=== PATIENT | female | born 1965 | race Hispanic/Latino ===

== ENCOUNTER 2017-09-23 12:39 | Outpatient (CLI) | payer OTHER ==
--- NOTE | 2017-09-23 14:31 | XRay Report ---
CHEST TWO VIEWS: 09/23/17 12:39:00 CLINICAL: Hypertension. COMPARISON: None FINDINGS: Normal heart and pulmonary vasculature. The lungs are normally expanded and clear.Mild degenerative change in the spine. IMPRESSION: No acute cardiopulmonary process.
== END 2017-09-23 12:40 | disposition home or self-care (01) ==
LOC: PF 12:39
PROVIDERS: ATTEND Internal Medicine
DX: J44.9 Chronic obstructive pulmonary disease, unspecified (principal); I10 Essential (primary) hypertension; E78.00 Pure hypercholesterolemia, unspecified; I63.9 Cerebral infarction, unspecified; D64.9 Anemia, unspecified; M47.894 Other spondylosis, thoracic region; F17.210 Nicotine dependence, cigarettes, uncomplicated
CPT/HCPCS: 71046; 94010

== ENCOUNTER 2021-09-01 06:42 | Day surgery (SDC) | payer MEDICARE, OTHER ==
[2021-09-01 07:56] LABS: Basophils % (Auto) 0.3 % (0.0-1.8); Eosinophils # (Auto) 0.2 K/mm3 (0.0-0.4); Eosinophils % (Auto) 4.1 % (0.0-4.3); Hematocrit 40.4 % (30.3-42.9); Hemoglobin 13.7 gm/dl (10.1-14.3); Lymphocytes % (Auto) 36.4 % (13.4-35.0); Mean Corpuscular HGB Conc 34 % (30-34); Mean Corpuscular Volume 95 fl (79-97); Monocytes # (Auto) 0.5 K/mm3 (0.0-0.8); Monocytes % (Auto) 8.5 % (0.0-7.3); Platelet Count 252 K/mm3 (140-440); Red Blood Count 4.25 M/mm3 (3.65-5.03); Red Cell Distribution Width 14.4 % (13.2-15.2)
[2021-09-01] MEDS ORDERED: SODIUM CHLORIDE 0.9% 500 ML 500 ML IV SCH (08:00)
[2021-09-01 08:07] LABS: INR 1.01 (0.87-1.13); Partial Thromboplastin Time 33.2 Sec. (24.2-36.6)
[2021-09-01 08:30] LABS: BUN/Creatinine Ratio 11; Blood Urea Nitrogen 9 mg/dL (7-17); Calcium 9.4 mg/dL (8.4-10.2); Hemolysis Index 12
[2021-09-01] MEDS ORDERED: HEPARIN 10,000 UNITS/10 ML VIAL ONE (08:59)
[2021-09-01] MEDS ORDERED: HEPARIN/NS 5000 UNIT/500ML 1,000 ML IR ONE (08:59)
[2021-09-01] MEDS ORDERED: fentaNYL 100 MCG/2 ML INJ ONE ×2 (09:00→11:01)
[2021-09-01] MEDS ORDERED: LIDOCAINE (2%) 20 MG/1 ML VIAL 50 ML MDV INFILTRATI ONE (09:00)
[2021-09-01] MEDS ORDERED: ceFAZolin/Water 2 GM/20 ML 2 GM/20 ML SYRINGE IV ONE (09:01)
--- NOTE | 2021-09-01 09:01 | Short Stay Summary ---
Short Stay Documentation Date of service: 09/01/21 Narrative H&P: The patient is a 56-year-old female with a history of peripheral vascular disease and short distance claudication who was found at an outside facility to have occlusive disease involving her right femoral artery. She was sent to be evaluated, emergently, in our office and was found to have bilateral occlusive disease in the SFA and popliteal arteries. Additionally she was found to have monophasic flow in the right common femoral artery suggesting aortoiliac disease. She complains of claudication at short distances that has been present for years. She also admits to having a stroke that affected her right side approximately 5 years ago. She continues to have severe weakness of the right leg which limits her daily activities. She is in need of a diagnostic angiogram and possible intervention. She was given the risk, benefits, and alternative procedures. She expressed understanding and agrees to proceed. - History Past Medical History: hypertension, hyperlipidemia, stroke, other (Peripheral neuropathy) Past Surgical History: No surgical history Social history: smoking - Allergies and Medications Current Medications: Allergies No Known Allergies Allergy (Unverified 09/23/17 12:40) Home Medications Medication Instructions Recorded Confirmed Last Taken Type AtorvaSTATin [Lipitor] 40 mg PO DAILY 09/01/21 09/01/21 08/31/21 History 1 tab Gabapentin [Neurontin] 100 mg PO Q8HR 09/01/21 09/01/21 08/31/21 History 2 tabs HYDROcodone/ACETAMINOPHEN 1 each PO Q6HR 09/01/21 09/01/21 08/31/21 History [Hydrocodone-Acetamin 7.5-300] 1 tab amLODIPine [Norvasc] 5 mg PO DAILY 09/01/21 09/01/21 08/31/21 History 1 tab carvediloL [Coreg] 25 mg PO BID 09/01/21 09/01/21 08/31/21 History 2 tabs cilostazoL [Pletal] 100 mg PO BID 09/01/21 09/01/21 08/31/21 History 2 tabs traZODone [Desyrel] 100 mg PO QHS 09/01/21 09/01/21 08/31/21 History 1 tab Active Medications Sodium Chloride (Nacl 0.9% 500 Ml) 500 mls @ 50 mls/hr IV DIRECT SRAVAN - Physical exam General appearance: no acute distress Lungs: Normal air movement Breasts: deferred Heart: Regular rate Gastrointestinal: normal Female Genitourinary: deferred Rectal Exam: deferred Extremities: normal temperature, abnormal (Nonpalpable pedal pulses bilaterally, palpable left femoral pulse with diminished right femoral pulse) - Brief post op/procedure progress note Date of procedure: 09/01/21 Pre-op diagnosis: Peripheral Vascular Disease with Bilateral Lower Extremity Claudication Post-op diagnosis: same Procedure: 1. Ultrasound-Guided Access Left Common Femoral Artery 2. Diagnostic Aortogram (No Previous Films for Comparison) 3. Diagnostic Right Lower Extremity Angiogram (No Previous Films for Com parison) 4. Atherectomy with Angioplasty Right SFA and Popliteal Artery with 2.4/3.4 JetAnametrix Atherectomy Catheter and 5.0 x 200 [place] Drug-Coated Balloons (x2) 5. Angioplasty of Right Common Femoral Artery with 6.0 x 150 [place] Drug-Coated Balloon 6. Angioplasty and Stent of Right External Iliac Artery with 7.0 x 150 [place] Drug-Coated Balloon And 5 x 7 cm Viabahn Stent Graft 7. Closure of Left Femoral Arteriotomy with Perclose Pro [place] Closure Device 8. Radiologic Supervision with Interpretation 9. Monitored Moderate Sedation (Total Anesthesia Time: 80 Minutes) Anesthesia: local, other (Monitored Moderate Sedation) Surgeon: RHINA MURRAY Estimated blood loss: minimal Pathology: none Condition: stable - Disposition Condition at discharge: Good Disposition: 01 HOME / SELF CARE / HOMELESS Short Stay Discharge Plan Activity: other (No strenuous activity for 24 hours.) Wound: remove dressing (Okay to remove the dressing in 48 hours. After removing dressing okay to shower and wash the wound with soap and water but do not soak in water for 2 weeks.) Follow up with: RHINA MURRAY MD [Staff Physician] - 14 Days Prescriptions: Apixaban [Eliquis] 2.5 mg PO Q12HR #60 tab Clopidogrel [Plavix] 75 mg PO QDAY #90 tablet Pantoprazole [Protonix] 40 mg PO QDAY #90 tablet
[2021-09-01] MEDS: MIDAZOLAM 2 MG/2 ML INJ ONE ×5 (09:44→10:44)
[2021-09-01] MEDS: fentaNYL 100 MCG/2 ML INJ ONE ×3 (10:10→10:44)
[2021-09-01] MEDS ORDERED: SODIUM CHLORIDE 0.9% 1000 ML 1,000 ML ONE (10:18)
[2021-09-01] MEDS ORDERED: hydrALAZINE 20 MG/1 ML INJ ONE (10:42)
[2021-09-01] MEDS ORDERED: MIDAZOLAM 2 MG/2 ML INJ ONE (11:01)
[2021-09-01] MEDS ORDERED: HYDROcodone/ACETAMINOPHEN 5-325 MG TAB PO PRN (11:22)
[2021-09-01] MEDS ORDERED: CLOPIDOGREL 300 MG TAB PO ONE (11:24)
[2021-09-01] MEDS ORDERED: APIXABAN 2.5 MG TAB PO ONE (11:30)
--- NOTE | 2021-09-01 11:41 | Operative Report ---
Operative Report Operative Report: Date of Procedure: 09/01/2021 Pre-operative Diagnosis: Peripheral Vascular Disease with Bilateral Lower Extrem ity Claudication Post-operative Diagnosis: Same Procedure(s): 1. Ultrasound-Guided Access Left Common Femoral Artery 2. Diagnostic Aortogram (No Previous Films for Comparison) 3. Diagnostic Right Lower Extremity Angiogram (No Previous Films for Comparison) 4. Atherectomy with Angioplasty Right SFA and Popliteal Artery with 2.4/3.4 Jetstream Atherectomy Catheter and 5.0 x 200 [place] Drug-Coated Balloons (x2) 5. Angioplasty of Right Common Femoral Artery with 6.0 x 150 [place] Drug-Coated Balloon 6. Angioplasty and Stent of Right External Iliac Artery with 7.0 x 150 [place] Drug-Coated Balloon And 7 x 5 cm Viabahn Stent Graft 7. Closure of Left Femoral Arteriotomy with Perclose ProGlide Closure Device 8. Radiologic Supervision with Interpretation 9. Monitored Moderate Sedation (Total Anesthesia Time: 80 Minutes) Surgeon: Lauri Edge M.D. Restaurant Manager: Amanda Anesthesia: Local/Monitored Moderate Sedation Total Anesthesia Time: 80 Minutes EBL: Minimal Counts: Correct Complications: None Condition: Stable Specimen: None Indication: The patient is a 56-year-old female with a history of peripheral vascular disease and short distance claudication who was found to have bilateral SFA and popliteal artery occlusive disease on arterial duplex. On physical exam she had a nonpalpable right femoral pulse suggesting she had aortoiliac occlusive disease as well. She is in need of a diagnostic aortogram with right lower extremity runoff, to evaluate her arterial flow, with possible intervention. She was given the risk, benefits, and alternative procedures and consented to the procedure. Angiographic Findings: The diagnostic aortogram revealed that the aorta was patent without aneurysmal dilatation or flow-limiting stenosis. The right lower extremity angiogram revealed approximately 50% stenosis of the right common iliac artery. The hypogastric artery was patent without significant flow-limiting stenosis. There was approximately 90% stenosis of the distal right external iliac artery. There was approximately 50% stenosis of the common femoral artery. The profunda artery was patent without significant flow- limiting stenosis. There was an occlusion of the SFA at its origin with reconstitution of flow in the proximal popliteal artery. There was approximately 75% stenosis in the mid popliteal artery and the remainder of the artery appeared to be patent without significant flow-limiting stenosis. The patient had three-vessel runoff and all vessels appear patent without significant flow-limiting stenosis. After intervention the common iliac artery was patent with approximately 20% residual stenosis. The external iliac artery was patent with less than 15% residual stenosis. There was less than 15% residual stenosis within the common femoral artery. The SFA was patent with less than 20% residual stenosis. There was a short segment with a dissection that was nonflow limiting. The popliteal artery was patent with approximately 20% residual stenosis in a short segment behind the knee that also had a small dissection however the this was nonflow limiting. Description of Procedure: The patient was brought to the Healthcare Consultant and laid in supine position. After timeout was performed her left groin was prepped and draped in normal sterile fashion. Ultrasound was used to identify the left common femoral artery and confirm patency. Once patency was confirmed the overlying skin and soft tissue was anesthetized with lidocaine. An 11 blade was used to make a small stab incision and then a curved hemostat was used to bluntly dissect down to the anterior surface of the left common femoral artery under ultrasound guidance. A 21-gauge micropuncture needle was then used with ultrasound guidance into the left common femoral artery. A 0.018 micropuncture wire was advanced to the artery and after removing the needle a micropuncture sheath was placed by Seldinger technique. The dilator and wire were removed and a 0.035 Bentson wire was advanced into the aorta. The micropuncture sheath was then changed for 5 [place] sheath by Seldinger technique. An Omni Flush catheter was advanced into the infrarenal aorta and after removing the wire diagnostic aortogram was performed with the previously described findings. The Bentson wire was reinserted and the catheter and wire were advanced up and over the bifurcation and a right lower extremity angiogram was performed with the previously described findings. I advanced a Bentson wire into the common femoral artery and the remove the Omni Flush cath and a 5 [place] sheath and placed a 7 [place] 45 cm destination sheath P[place]i technique. At this point the patient was systemically heparinized with 5000 units of heparin IV. I then used a Navicross catheter and 0.018 Gladius Wire to traverse the occluded SFA and reenter the popliteal artery which was confirmed by angiogram. I then advanced the catheter wire to the posterior tibial artery and exchanged the Gladius wire for a 0.014 Thruway wire. I then performed atherectomy of the SFA and popliteal artery using a 2.4/3.4 jetBuccaneer atherectomy catheter. I then performed angioplasty of the popliteal artery and SFA using 5.0 x 200 [place] Drug-Coated Balloons (x2). I performed angioplasty of the common femoral artery using a 6.0 x 150 [place] Drug-Coated Balloon. This resulted in less than 15% residual stenosis within the common femoral artery. There was a small flow-limiting dissection within the mid SFA however the remainder of the artery had less than 20% residual stenosis. There was approximately 20% residual stenosis within the popliteal artery with a short nonflow limiting dissection behind the knee. I performed angioplasty of the area of dissection, within the SFA, using a 6 x 40 [place] Balloon which resulted in less than 20% residual stenosis. I then performed angioplasty of the common iliac artery and external iliac artery using a 7.0 x 150 [place] Drug-Coated Balloon. This resulted in approximately 20% residual stenosis within the common iliac artery and a flow-limiting dissection in the distal external iliac artery. I treated this flow-limiting dissection with a 7 x 5 cm Viabahn stent graft which resulted in less than 15% residual stenosis. At this point I remove the wire and pulled the sheath back into the left external leg artery. I advanced a Alma Johnsson wire into the aorta and remove the 7 [place] sheath. I then closed the left femoral arteriotomy using a Perclose ProGlide Closure Device. A sterile dressing was then applied to the left groin entry site and the patient was transported to the recovery area in stable condition.
[2021-09-01 16:14] VITALS: BP 116/63
== END 2021-09-01 06:43 | disposition home or self-care (01) ==
LOC: CATHLABREC 06:42
PROVIDERS: ATTEND Surgery Vascular Surgery
DX: I70.213 Atherosclerosis of native arteries of extremities with intermittent claudication, bilateral legs (principal); E78.00 Pure hypercholesterolemia, unspecified; I10 Essential (primary) hypertension; G47.30 Sleep apnea, unspecified; F17.210 Nicotine dependence, cigarettes, uncomplicated; Z98.890 Other specified postprocedural states; Z79.899 Other long term (current) drug therapy; Z86.73 Personal history of transient ischemic attack (TIA), and cerebral infarction without residual deficits
CPT/HCPCS: 36415; 37221; 37225; 75625; 75710; 76937; 80048; 85025; 85610; 85730; 99156; 99157; C1724; C1725; C1760; C1769; C1874; C1887; C2623; J0360; J0690; J1644; J2250; J3010; J3490; J7030; J7040; Q0162; Q9967

== ENCOUNTER 2021-11-30 15:34 | Inpatient (IN) | payer MEDICARE ==
[2021-11-30] MEDS ORDERED: cefTRIAXone/NS 1 GM/50 ML 1 GM/50 ML BAG IV ONE (15:49)
--- NOTE | 2021-11-30 16:05 | Emergency Department Report ---
HPI - General Chief Complaint: Fever Time Seen by Provider: 11/30/21 15:46 - HPI HPI: 56-year-old female presents to the emergency department via EMS from home with concern for sepsis with hypotension and generalized weakness. The patient was admitted here on 10/18 for a left common femoralpopliteal bypass secondary to critical limb ischemia. The next day the patient had a left lower extremity thrombectomy with revascularization. She was found to have compartment syndrome of the left lower extremity and had fasciotomy done. Later during her hospital admission the patient was found to have a cool right lower extremity and subsequently had endovascular revascularization of the right lower extremity with angioplasty. The patient was discharged on 11/06 and was [facility]. She remained there until about 3 days ago when she was discharged back to her home. She had some family and friends with her at the house who found her weak and altered and called for EMS. At the time of my initial examination she is awake, alert, oriented, AAO x3, but does appear weak and frail and has hypotension with a systolic of about 65. So far she has received 2 L of IV fluid through EMS both in route and while awaiting a bed in the emergency department. ED Past Medical Hx - Past Medical History Hx Hypertension: Yes Hx Heart Attack/AMI: No (Cardiac clearance; echo & nst) Hx Diabetes: No Hx Liver Disease: No Hx Arthritis: No Hx Kidney Stones: No Hx Tuberculosis: No Hx HIV: No - Social History Smoking Status: Current Every Day Smoker - Medications Home Medications: Home Medications Medication Instructions Recorded Confirmed Last Taken Type Apixaban [Eliquis] 2.5 mg PO Q12HR #60 tab 09/01/21 10/10/21 Unknown Rx AtorvaSTATin [Lipitor] 40 mg PO DAILY 09/01/21 10/10/21 08/31/21 History 1 tab Clopidogrel [Plavix] 75 mg PO QDAY #90 tablet 09/01/21 10/10/21 Unknown Rx Gabapentin 100 mg PO BID 09/01/21 10/10/21 08/31/21 History 2 tabs Pantoprazole [Protonix] 40 mg PO QDAY #90 tablet 09/01/21 10/10/21 Unknown Rx amLODIPine 5 mg PO DAILY 09/01/21 10/10/21 08/31/21 History 1 tab carvediloL [Coreg] 25 mg PO BID 09/01/21 10/10/21 08/31/21 History 2 tabs cilostazoL [Pletal] 50 mg PO BID 09/01/21 10/10/21 08/31/21 History 2 tabs traZODone [Desyrel] 100 mg PO QHS 09/01/21 10/10/21 08/31/21 History 1 tab Venlafaxine [Effexor] 75 mg PO DAILY 11/02/21 11/02/21 Unknown History ED Review of Systems ROS: Stated complaint: POSSIBLE SEPSIS, WEAKNESS, ALTERED MENTAL STATUS Other details as noted in HPI Comment: All other systems reviewed and negative Constitutional: chills, weakness Eyes: denies: eye pain, vision change ENT: denies: ear pain, throat pain Respiratory: denies: cough, shortness of breath Cardiovascular: denies: chest pain, palpitations Gastrointestinal: denies: abdominal pain, vomiting Genitourinary: denies: dysuria, discharge Musculoskeletal: denies: back pain, arthralgia Skin: denies: rash, lesions Neurological: weakness. denies: headache Physical Exam - Physical Exam Vital Signs: Vital Signs 11/30/21 15:38 Temperature 99.7 F H Pulse Rate 98 H Respiratory 20 Rate Blood Pressure 78/58 [Left] O2 Sat by Pulse 98 Oximetry Physical Exam: GENERAL: Patient is ill-appearing. HENT: Normocephalic. Atraumatic. Patient has moist mucous membranes. EYES: Extraocular motions are intact. NECK: Supple. Trachea is midline. CHEST/LUNGS: Clear to auscultation. There is no respiratory distress noted. HEART/CARDIOVASCULAR: Regular. There is no tachycardia. There is no murmur. ABDOMEN: Abdomen is soft, nontender. Patient has normal bowel sounds. There is no abdominal distention. SKIN: Skin is cool but dry. There is swelling to the left mid calf and tib-fib with bilateral incisions. These incisions do not appear to show any signs of dehiscence. Mild purulent drainage. No surrounding erythema. There is a wound VAC to the proximal left upper extremity, almost at the groin. NEURO: The patient is awake, alert, and oriented. The patient is cooperative. The patient has no focal neurologic deficits. Normal speech. MUSCULOSKELETAL: There is tenderness to palpation along the distal left lower extremity. ED Course Vital Signs 11/30/21 15:38 Temperature 99.7 F H Pulse Rate 98 H Respiratory 20 Rate Blood Pressure 78/58 [Left] O2 Sat by Pulse 98 Oximetry - Central Line Placement Right IJ Consent Obtained: verbal consent Time Out Performed: Yes Patient Placed on Monitor/Pulse Ox: Yes Prep: mask, gown, gloves Central Line Prep: Chlorhexidine scrub Local Anesthesia Used: Lidocaine 1% Amount of Anesthesia Used (mls): 3 Ultrasound Used for Placement: Yes Central Line Lumen Inserted: triple Reason for Insertion: Volume Resuscitation Bloods Obtained for Lab: No Central Line Position: good blood return, all ports aspirated, flus, sutured in place with nyl Dressing Applied: Tegaderm, sterile gauze/tape Post Procedure X-Ray: tip of catheter in good p Patient Tolerated Procedure: well Complications: none ED Medical Decision Making - Lab Data Result diagrams: 11/30/21 15:56 11/30/21 15:56 Lab Results 11/30/21 11/30/21 11/30/21 Range/Units 15:56 15:56 15:56 WBC 17.0 H (4.5-11.0) K/mm3 RBC 2.26 L (3.65-5.03) M/mm3 Hgb 6.2 L (10.1-14.3) gm/dl Hct 19.2 L* (30.3-42.9) % MCV 85 (79-97) fl MCH 27 L (28-32) pg MCHC 32 (30-34) % RDW 16.6 H (13.2-15.2) % Plt Count 286 (140-440) K/mm3 Add Manual Diff Complete Total Counted 100 Seg Neutrophils % Framework Developer Seg Neuts % (Manual) 71.0 H (40.0-70.0) % Band Neutrophils % 26.0 % Lymphocytes % (Manual) 1.0 L (13.4-35.0) % Reactive Lymphs % (Man) 0 % Monocytes % (Manual) 1.0 (0.0-7.3) % Eosinophils % (Manual) 0 (0.0-4.3) % Basophils % (Manual) 0 (0.0-1.8) % Metamyelocytes % 0 % Myelocytes % 1.0 % Promyelocytes % 0 % Blast Cells % 0 % Nucleated RBC % Not Reportable Seg Neutrophils # Man 12.1 H (1.8-7.7) K/mm3 Band Neutrophils # 4.4 K/mm3 Lymphocytes # (Manual) 0.2 L (1.2-5.4) K/mm3 Abs React Lymphs (Man) 0.0 K/mm3 Monocytes # (Manual) 0.2 (0.0-0.8) K/mm3 Eosinophils # (Manual) 0.0 (0.0-0.4) K/mm3 Basophils # (Manual) 0.0 (0.0-0.1) K/mm3 Metamyelocytes # 0.0 K/mm3 Myelocytes # 0.2 K/mm3 Promyelocytes # 0.0 K/mm3 Blast Cells # 0.0 K/mm3 WBC Morphology Not Reportable Hypersegmented Neuts Not Reportable Hyposegmented Neuts Not Reportable Hypogranular Neuts Not Reportable Smudge Cells Not Reportable Toxic Granulation Not Reportable Toxic Vacuolation Not Reportable Dohle Bodies Not Reportable Pelger-Huet Anomaly Not Reportable Mary Rods Not Reportable Platelet Estimate Consistent w auto Clumped Platelets Not Reportable Plt Clumps, EDTA Not Reportable Large Platelets Not Reportable Giant Platelets Not Reportable Platelet Satelliting Not Reportable Plt Morphology Comment Not Reportable RBC Morphology Not Reportable Dimorphic RBCs Not Reportable Polychromasia Not Reportable Hypochromasia Not Reportable Poikilocytosis Not Reportable Anisocytosis Not Reportable Microcytosis Not Reportable Macrocytosis Not Reportable Spherocytes Few Pappenheimer Bodies Not Reportable Sickle Cells Not Reportable Target Cells Not Reportable Tear Drop Cells Not Reportable Ovalocytes Not Reportable Helmet Cells Not Reportable [place] Bodies Not Reportable [place] Rings Not Reportable [place] Cells Not Reportable Bite Cells Not Reportable Crenated Cell Not Reportable Elliptocytes Not Reportable Acanthocytes (Spur) Not Reportable Rouleaux Not Reportable Hemoglobin C Crystals Not Reportable Schistocytes Not Reportable Malaria parasites Not Reportable Kvng Bodies Not Reportable Hem Pathologist Commnt F PT 23.9 H (12.2-14.9) Sec. INR 1.87 H (0.87-1.13) APTT 43.1 H (24.2-36.6) Sec. VBG pH (7.320-7.420) Sodium 131 L (137-145) mmol/L Potassium 3.6 (3.6-5.0) mmol/L Chloride 98.3 (98-107) mmol/L Carbon Dioxide 22 (22-30) mmol/L Anion Gap 14 mmol/L BUN 9 (7-17) mg/dL Creatinine 1.3 H (0.6-1.2) mg/dL Estimated GFR 42 ml/min BUN/Creatinine Ratio 7 % Glucose 104 H (65-100) mg/dL Lactic Acid (0.7-2.0) mmol/L Calcium 7.3 L (8.4-10.2) mg/dL Total Bilirubin 0.40 (0.1-1.2) mg/dL AST 16 (5-40) units/L ALT 7 (7-56) units/L Alkaline Phosphatase 80 (35-129) units/L Troponin T 0.119 H* (0.00-0.029) ng/mL Total Protein 4.2 L (6.3-8.2) g/dL Albumin 2.4 L (3.9-5) g/dL Albumin/Globulin Ratio 1.3 % Triglycerides 108 (2-149) mg/dL Cholesterol 82 (50-199) mg/dL LDL Cholesterol Direct 38 L (50-130) mg/dL HDL Cholesterol 28 L (40-59) mg/dL Cholesterol/HDL Ratio 2.92 % TSH (0.270-4.200) mlU/mL Blood Type Antibody Screen Crossmatch 11/30/21 11/30/21 11/30/21 Range/Units 15:56 15:57 15:57 WBC (4.5-11.0) K/mm3 RBC (3.65-5.03) M/mm3 Hgb (10.1-14.3) gm/dl Hct (30.3-42.9) % MCV (79-97) fl MCH (28-32) pg MCHC (30-34) % RDW (13.2-15.2) % Plt Count (140-440) K/mm3 Add Manual Diff Total Counted Seg Neutrophils % Seg Neuts % (Manual) (40.0-70.0) % Band Neutrophils % % Lymphocytes % (Manual) (13.4-35.0) % Reactive Lymphs % (Man) % Monocytes % (Manual) (0.0-7.3) % Eosinophils % (Manual) (0.0-4.3) % Basophils % (Manual) (0.0-1.8) % Metamyelocytes % % Myelocytes % % Promyelocytes % % Blast Cells % % Nucleated RBC % Seg Neutrophils # Man (1.8-7.7) K/mm3 Band Neutrophils # K/mm3 Lymphocytes # (Manual) (1.2-5.4) K/mm3 Abs React Lymphs (Man) K/mm3 Monocytes # (Manual) (0.0-0.8) K/mm3 Eosinophils # (Manual) (0.0-0.4) K/mm3 Basophils # (Manual) (0.0-0.1) K/mm3 Metamyelocytes # K/mm3 Myelocytes # K/mm3 Promyelocytes # K/mm3 Blast Cells # K/mm3 WBC Morphology Hypersegmented Neuts Hyposegmented Neuts Hypogranular Neuts Smudge Cells Toxic Granulation Toxic Vacuolation Dohle Bodies Pelger-Huet Anomaly Mary Rods Platelet Estimate Clumped Platelets Plt Clumps, EDTA Large Platelets Giant Platelets Platelet Satelliting Plt Morphology Comment RBC Morphology Dimorphic RBCs Polychromasia Hypochromasia Poikilocytosis Anisocytosis Microcytosis Macrocytosis Spherocytes Pappenheimer Bodies Sickle Cells Target Cells Tear Drop Cells Ovalocytes Helmet Cells [place]barra-[place] Bodies [place] Rings Syeda Cells Bite Cells Crenated Cell Elliptocytes Acanthocytes (Spur) Rouleaux Hemoglobin C Crystals Schistocytes Malaria parasites Kvng Bodies Hem Pathologist Commnt PT (12.2-14.9) Sec. INR (0.87-1.13) APTT (24.2-36.6) Sec. VBG pH 7.509 H (7.320-7.420) Sodium (137-145) mmol/L Potassium (3.6-5.0) mmol/L Chloride (98-107) mmol/L Carbon Dioxide (22-30) mmol/L Anion Gap mmol/L BUN (7-17) mg/dL Creatinine (0.6-1.2) mg/dL Estimated GFR ml/min BUN/Creatinine Ratio % Glucose (65-100) mg/dL Lactic Acid 1.70 (0.7-2.0) mmol/L Calcium (8.4-10.2) mg/dL Total Bilirubin (0.1-1.2) mg/dL AST (5-40) units/L ALT (7-56) units/L Alkaline Phosphatase (35-129) units/L Troponin T (0.00-0.029) ng/mL Total Protein (6.3-8.2) g/dL Albumin (3.9-5) g/dL Albumin/Globulin Ratio % Triglycerides (2-149) mg/dL Cholesterol (50-199) mg/dL LDL Cholesterol Direct (50-130) mg/dL HDL Cholesterol (40-59) mg/dL Cholesterol/HDL Ratio % TSH 1.870 (0.270-4.200) mlU/mL Blood Type Antibody Screen Crossmatch 11/30/21 11/30/21 Range/Units 17:23 17:23 WBC (4.5-11.0) K/mm3 RBC (3.65-5.03) M/mm3 Hgb (10.1-14.3) gm/dl Hct (30.3-42.9) % MCV (79-97) fl MCH (28-32) pg MCHC (30-34) % RDW (13.2-15.2) % Plt Count (140-440) K/mm3 Add Manual Diff Total Counted Seg Neutrophils % Seg Neuts % (Manual) (40.0-70.0) % Band Neutrophils % % Lymphocytes % (Manual) (13.4-35.0) % Reactive Lymphs % (Man) % Monocytes % (Manual) (0.0-7.3) % Eosinophils % (Manual) (0.0-4.3) % Basophils % (Manual) (0.0-1.8) % Metamyelocytes % % Myelocytes % % Promyelocytes % % Blast Cells % % Nucleated RBC % Seg Neutrophils # Man (1.8-7.7) K/mm3 Band Neutrophils # K/mm3 Lymphocytes # (Manual) (1.2-5.4) K/mm3 Abs React Lymphs (Man) K/mm3 Monocytes # (Manual) (0.0-0.8) K/mm3 Eosinophils # (Manual) (0.0-0.4) K/mm3 Basophils # (Manual) (0.0-0.1) K/mm3 Metamyelocytes # K/mm3 Myelocytes # K/mm3 Promyelocytes # K/mm3 Blast Cells # K/mm3 WBC Morphology Hypersegmented Neuts Hyposegmented Neuts Hypogranular Neuts Smudge Cells Toxic Granulation Toxic Vacuolation Dohle Bodies Pelger-Huet Anomaly Mary Rods Platelet Estimate Clumped Platelets Plt Clumps, EDTA Large Platelets Giant Platelets Platelet Satelliting Plt Morphology Comment RBC Morphology Dimorphic RBCs Polychromasia Hypochromasia Poikilocytosis Anisocytosis Microcytosis Macrocytosis Spherocytes Pappenheimer Bodies Sickle Cells Target Cells Tear Drop Cells Ovalocytes Helmet Cells [place]barra-[place] Bodies [place] Rings [place] Cells Bite Cells Crenated Cell Elliptocytes Acanthocytes (Spur) Rouleaux Hemoglobin C Crystals Schistocytes Malaria parasites Kvng Bodies Hem Pathologist Commnt PT (12.2-14.9) Sec. INR (0.87-1.13) APTT (24.2-36.6) Sec. VBG pH (7.320-7.420) Sodium (137-145) mmol/L Potassium (3.6-5.0) mmol/L Chloride (98-107) mmol/L Carbon Dioxide (22-30) mmol/L Anion Gap mmol/L BUN (7-17) mg/dL Creatinine (0.6-1.2) mg/dL Estimated GFR ml/min BUN/Creatinine Ratio % Glucose (65-100) mg/dL Lactic Acid 1.20 (0.7-2.0) mmol/L Calcium (8.4-10.2) mg/dL Total Bilirubin (0.1-1.2) mg/dL AST (5-40) units/L ALT (7-56) units/L Alkaline Phosphatase (35-129) units/L Troponin T (0.00-0.029) ng/mL Total Protein (6.3-8.2) g/dL Albumin (3.9-5) g/dL Albumin/Globulin Ratio % Triglycerides (2-149) mg/dL Cholesterol (50-199) mg/dL LDL Cholesterol Direct (50-130) mg/dL HDL Cholesterol (40-59) mg/dL Cholesterol/HDL Ratio % TSH (0.270-4.200) mlU/mL Blood Type O POSITIVE Antibody Screen Negative Crossmatch See Detail - EKG Data -: EKG Interpreted by Ri EKG shows normal: sinus rhythm, axis (Left axis deviation), intervals, QRS complexes, ST-T waves (T wave inversions to the anterolateral leads) Rate: normal - EKG Data When compared to previous EKG there are: changes noted (New T wave inversions to the anterolateral leads) Interpretation: other (Sinus rhythm at 86 bpm, left axis deviation, normal intervals, T wave inversions in the anterolateral leads. No ST elevation [place].) - Radiology Data Radiology results: image reviewed interpreted by me: Chest x-ray does not show any acute process. There are no pleural effusions, obvious pneumonia and there is no pneumothorax. Repeat chest x-ray shows right IJ central venous catheter tip in the superior vena cava. - Medical Decision Making This patient presents to the emergency department after she was found weak, hypotensive and lethargic, by family and friends. The patient does present with hypotension with a systolic blood pressure between 60 and 70, despite IV fluid in route and while waiting for a bed assignment. By the time of my initial examination the patient has already received 2 L of IV fluid, which is greater t moser the 30 cc/kg as part of the sepsis bundle. A code sepsis was initiated. Blood cultures were sent and the patient was started on empiric antibiotics. As she continues to have hypotension, a right IJ central venous catheter was placed and the patient was started on Levophed. Chest x-ray did not show any pneumonia, pleural effusions, pneumothorax, widened mediastinum, or any other acute process. Patient's labs also show anemia with a hemoglobin of 6.2, which may be part of the reason for the patient's hypotension and lethargy. 1 unit packed red blood cells has been ordered for transfusion. Labs also show a leukocytosis of 17,000, elevated troponin of 1.112, mild hyponatremia at 131. I spoke to the clearing hand on-call, Dr. Saúl Santana, who is excepted the patient to the ICU. The patient will be admitted by Dr. Jane. Critical Care Time: Yes Critical care time in (mins) excluding proc time.: 35 Critical care attestation.: If time is entered above; I have spent that time in minutes in the direct care o f this critically ill patient, excluding procedure time. Critical care time was spent on this patient in doing her initial evaluation, multiple reevaluations, ordering and interpretation of labs and imaging, IV fluid resuscitation, Levophed drip for continued hypotension, empiric antibiotics, discussion with the clearing hand and hospitalist services. Critical Care Time: 35 minutes ED Disposition Clinical Impression: Septic shock, Anemia requiring transfusions, NSTEMI (non-ST elevated myocardial infarction) Sepsis Qualifiers: Sepsis type: sepsis due to unspecified organism Sepsis acute organ dysfunction status: with acute organ dysfunction Severe sepsis acute organ dysfunction type: unspecified Severe sepsis shock status: with septic shock Qualified Code(s): A41.9 - Sepsis, unspecified organism; R65.21 - Severe sepsis with septic shock Hypotension Qualifiers: Hypotension type: unspecified hypotension type Qualified Code(s): I95.9 - Hypotension, unspecified Leukocytosis Qualifiers: Leukocytosis type: unspecified Qualified Code(s): D72.829 - Elevated white blood cell count, unspecified Disposition: 09 ADMITTED INPATIENT Is pt being admited?: Yes Condition: Critical Time of Disposition: 18:13
[2021-11-30] MEDS ORDERED: SODIUM CHLORIDE 0.9% 1000 ML 1,000 ML ONE (16:07)
[2021-11-30] MEDS ORDERED: SODIUM CHLORIDE 0.9% 1000 ML IV SOLN IV ONE (16:08)
--- NOTE | 2021-11-30 16:22 | XRay Report ---
CHEST 1 VIEW 11/30/2021 3:10 PM INDICATION / CLINICAL INFORMATION: Sepsis. COMPARISON: 10/25/2021 FINDINGS: SUPPORT DEVICES: None. HEART / MEDIASTINUM: No significant abnormality. LUNGS / PLEURA: No significant pulmonary or pleural abnormality. No pneumothorax. ADDITIONAL FINDINGS: No significant additional findings. IMPRESSION: 1. No acute findings. Signer Name: Houston Segovia MD Signed: 11/30/2021 4:17 PM Workstation Name: [id number]
[2021-11-30 16:30] LABS: Hemoglobin 6.2 gm/dl (10.1-14.3); Mean Corpuscular HGB Conc 32 % (30-34); Mean Corpuscular Volume 85 fl (79-97); Platelet Count 286 K/mm3 (140-440); Red Blood Count 2.26 M/mm3 (3.65-5.03); Red Cell Distribution Width 16.6 % (13.2-15.2)
[2021-11-30 16:31] LABS: Albumin 2.4 g/dL (3.9-5); Calcium 7.3 mg/dL (8.4-10.2)
[2021-11-30] MEDS ORDERED: SODIUM CHLORIDE 0.9% 500 ML 500 ML IV ONE (16:50)
[2021-11-30 16:51] LABS: Hematocrit 19.2 % (30.3-42.9)
[2021-11-30 16:59] LABS: Chol/HDL Ratio 2.92 %
[2021-11-30 17:08] LABS: INR 1.87 (0.87-1.13)
[2021-11-30 17:09] LABS: Partial Thromboplastin Time 43.1 Sec. (24.2-36.6)
--- NOTE | 2021-11-30 17:24 | XRay Report ---
XR chest 1V ap INDICATION / CLINICAL INFORMATION: CVC placement. COMPARISON: 11/30/2021 FINDINGS: SUPPORT DEVICES: Right IJ central venous catheter projects over the lower SVC. HEART /PULMONARY VASCULATURE: No significant abnormality. LUNGS / PLEURA: No new or increasing airspace consolidation. Mild interstitial prominence. No sizable pleural effusion. No pneumothorax. IMPRESSION: Right IJ central venous catheter projects over the SVC. No evidence of complication. Signer Name: Fabien Borja MD Signed: 11/30/2021 5:19 PM Workstation Name: [id number] [id number]
[2021-11-30] MEDS: NORepinephrine/NS 8 MG-250 ML 8 MG/250 ML INFUS..BTL IV SCH (17:26)
[2021-11-30 17:51] LABS: Band Neutrophils # (Manual) 4.4 K/mm3; Basophils % (Manual) 0 % (0.0-1.8); Eosinophils % (Manual) 0 % (0.0-4.3); Myelocytes # (Manual) 0.2 K/mm3; Total Cells Counted 100
[2021-11-30 17:53] LABS: Platelet Estimate Consistent w Auto; Spherocytes Few
[2021-11-30] MEDS ORDERED: SODIUM CHLORIDE 0.9% 1000 ML 1,000 ML IV ONE (18:11)
[2021-11-30] MEDS ORDERED: ACETAMINOPHEN 325 MG TAB PO PRN (19:24)
[2021-11-30] MEDS ORDERED: VANCOMYCIN 750 MG in SODIUM CHLORIDE 0.9% 250ML 250 ML IV ONE (20:00)
[2021-11-30] MEDS ORDERED: VANCOMYCIN PHARMACY TO DOSE IV SCH (20:00)
[2021-11-30] MEDS ORDERED: CEFEPIME/NS 2 GM/100 ML 2 GM/100 ML BAG IV SCH ×2 (20:00)
[2021-11-30] MEDS: oxyCODONE /ACETAMINOPHEN 5-325MG TAB PO PRN (22:20)
[2021-12-01 03:18] LABS: Bilirubin,Urine NEG (Negative); Blood,Urine SM (Negative); Color,Urine Yellow (Yellow); Protein,Urine <15 mg/dL mg/dL (Negative); Urobilinogen,Urine < 2.0 mg/dL (<2.0)
[2021-12-01 03:20] LABS: Bacteria,Urine 1+ /HPF (Negative)
[2021-12-01] MEDS: NORepinephrine/NS 8 MG-250 ML 8 MG/250 ML INFUS..BTL IV SCH (05:04)
[2021-12-01 05:07] LABS: Hematocrit 27.5 % (30.3-42.9); Hemoglobin 8.7 gm/dl (10.1-14.3); Mean Corpuscular HGB Conc 32 % (30-34); Mean Corpuscular Volume 86 fl (79-97); Platelet Count 395 K/mm3 (140-440); Red Cell Distribution Width 15.4 % (13.2-15.2)
[2021-12-01 05:26] LABS: Blood Urea Nitrogen 10 mg/dL (7-17); Calcium 7.4 mg/dL (8.4-10.2); Hemolysis Index 0
[2021-12-01 05:27] LABS: BUN/Creatinine Ratio 14
--- NOTE | 2021-12-01 06:27 | History and Physical Report ---
History of Present Illness Date of examination: 11/30/21 Date of admission: 11/30/21 19:24 Chief complaint: Altered mental status and severe weakness for 1 day History of present illness: 56-year-old female with complex medical history brought in by EMS for altered sensorium and hypotension and possible sepsis. Patient had a femoropopliteal bypass on the left lower extremity on 10 19. Patient also had critical limb ischemia. Patient had fasciotomy in the left lower extremity and also on wound VAC and groin region. Patient was sent for rehab and discharged home couple days ago. Patient was supposed to go to vascular surgery-Dr. Edge and because the patient is very lethargic EMS was called and brought him to the emergency room. Patient was weak and altered. No fever. Also is also weak. Family history be severe smoker 2 packs/day till recently. ED course: Patient was hypotensive and was started on Levophed and sepsis protocol. Patient more alert and oriented. Able to answer questions appropriately during my exam. The patient was admitted here on 10/18 for a left common femoralpopliteal bypass secondary to critical limb ischemia. The next day the patient had a left lower extremity thrombectomy with revascularization. She was found to have compartment syndrome of the left lower extremity and had fasciotomy done. Later during her hospital admission the patient was found to have a cool right lower extremity and subsequently had endovascular revascularization of the right lower extremity with angioplasty. The patient was discharged on 11/06 and was sent to a half-way facility. She remained there until about 3 days ago when she was discharged back to her home. She had some family and friends with her at the house who found her weak and altered and called for EMS. - Past Medical History --Hypertension: Yes --Heart Attack/AMI: No (Cardiac clearance; echo & nst) -Past surgical history --fasciotomy on left lower extremity --Wound VAC in left groin -family history --Htn - Social History --Smoking Status: Current Every Day Smoker - Medications Home Medications: Home Medications Medication Instructions Recorded Confirmed Last Taken Type Apixaban [Eliquis] 2.5 mg PO Q12HR #60 tab 09/01/21 10/10/21 Unknown Rx AtorvaSTATin [Lipitor] 40 mg PO DAILY 09/01/21 10/10/21 08/31/21 History 1 tab Clopidogrel [Plavix] 75 mg PO QDAY #90 tablet 09/01/21 10/10/21 Unknown Rx Gabapentin 100 mg PO BID 09/01/21 10/10/21 08/31/21 History 2 tabs Pantoprazole [Protonix] 40 mg PO QDAY #90 tablet 09/01/21 10/10/21 Unknown Rx amLODIPine 5 mg PO DAILY 09/01/21 10/10/21 08/31/21 History 1 tab carvediloL [Coreg] 25 mg PO BID 09/01/21 10/10/21 08/31/21 History 2 tabs cilostazoL [Pletal] 50 mg PO BID 09/01/21 10/10/21 08/31/21 History 2 tabs traZODone [Desyrel] 100 mg PO QHS 09/01/21 10/10/21 08/31/21 History 1 tab Venlafaxine [Effexor] 75 mg PO DAILY 11/02/21 11/02/21 Unknown History Review of Systems ROS: Stated complaint: POSSIBLE SEPSIS, WEAKNESS, ALTERED MENTAL STATUS Other details as noted in HPI Comment: All other systems reviewed and negative Constitutional: chills, weakness Eyes: denies: eye pain, vision change ENT: denies: ear pain, throat pain Respiratory: denies: cough, shortness of breath Cardiovascular: denies: chest pain, palpitations Gastrointestinal: denies: abdominal pain, vomiting Genitourinary: denies: dysuria, discharge Musculoskeletal: denies: back pain, arthralgia Skin: denies: rash, lesions Neurological: weakness. denies: headache Medications and Allergies Allergies Allergy/AdvReac Type Severity Reaction Status Date / Time No Known Allergies Allergy Verified 10/20/21 09:17 Home Medications Medication Instructions Recorded Confirmed Last Taken Type Apixaban [Eliquis] 2.5 mg PO Q12HR #60 tab 09/01/21 10/10/21 Unknown Rx AtorvaSTATin [Lipitor] 40 mg PO DAILY 09/01/21 10/10/21 08/31/21 History 1 tab Clopidogrel [Plavix] 75 mg PO QDAY #90 tablet 09/01/21 10/10/21 Unknown Rx Gabapentin 100 mg PO BID 09/01/21 10/10/21 08/31/21 History 2 tabs Pantoprazole [Protonix] 40 mg PO QDAY #90 tablet 09/01/21 10/10/21 Unknown Rx amLODIPine 5 mg PO DAILY 09/01/21 10/10/21 08/31/21 History 1 tab carvediloL [Coreg] 25 mg PO BID 09/01/21 10/10/21 08/31/21 History 2 tabs cilostazoL [Pletal] 50 mg PO BID 09/01/21 10/10/21 08/31/21 History 2 tabs traZODone [Desyrel] 100 mg PO QHS 09/01/21 10/10/21 08/31/21 History 1 tab Venlafaxine [Effexor] 75 mg PO DAILY 11/02/21 11/02/21 Unknown History Active Meds: Active Medications Acetaminophen (Acetaminophen 325 Mg Tab) 650 mg PO Q4H PRN PRN Reason: Pain MILD(1-3)/Fever >100.5/GONZALEZ NORepinephrine/NS 8 MG-250 ML (Norepinephrine/Ns 8 Mg-250 Ml (Double Conc)) 8 mg in 250 mls @ 3.75 mls/hr IV TITRATE SRAVAN; Protocol Last Admin: 12/01/21 05:04 Dose: 6 mcg/min, 11.25 mls/hr Cefepime HCl (Cefepime/Ns 2 Gm/100 Ml) 2 gm in 100 mls @ 200 mls/hr IV Q24H SRAVAN; Protocol Last Admin: 11/30/21 21:06 Dose: Not Given Ondansetron HCl (Ondansetron 4 Mg/2 Ml Inj) 4 mg IV Q8H PRN PRN Reason: Nausea And Vomiting Oxycodone/Acetaminophen (Oxycodone /Acetaminophen 5-325mg Tab) 1 tab PO Q6H PRN PRN Reason: Pain, Moderate (4-6) Last Admin: 11/30/21 22:20 Dose: 1 tab Sodium Chloride (Sodium Chloride 0.9% 10 Ml Flush Syringe) 10 ml IV BID [facility] Last Admin: 11/30/21 23:19 Dose: Not Given Sodium Chloride (Sodium Chloride 0.9% 10 Ml Flush Syringe) 10 ml IV PRN PRN PRN Reason: LINE FLUSH Exam - Constitutional Vitals: Temp Pulse Resp BP Pulse Ox 97.5 F L 64 8 L 106/55 96 12/01/21 04:00 12/01/21 06:00 12/01/21 06:00 12/01/21 06:00 12/01/21 06:00 General appearance: Present: mild distress, cachectic - EENT Eyes: Present: PERRL ENT: hearing intact, clear oral mucosa - Neck Neck: Present: supple, normal ROM - Respiratory Respiratory effort: normal Respiratory: bilateral: CTA - Cardiovascular Heart rate: 78 Rhythm: regular Heart Sounds: Present: S1 & S2. Absent: rub, click - Extremities Extremities: pulses symmetrical, No edema, abnormal (Fasciotomy wounds on left lower extremity on the medial and lateral aspect of the calf region) Extremity abnormal: other (Wound VAC in the left groin) Peripheral Pulses: within normal limits - Abdominal General gastrointestinal: Present: soft, non-tender, non-distended, normal bowel sounds Female genitourinary: Present: normal - Integumentary Integumentary: Present: clear, warm, dry - Musculoskeletal Musculoskeletal: gait normal, strength equal bilaterally - Psychiatric Psychiatric: depressed, other (Slightly lethargic) - Neurologic Neurologic: CNII-XII intact, moves all extremities HEART Score - HEART Score Troponin: Troponin T 0.119 ng/mL (0.00-0.029) H* 11/30/21 15:56 Results - Labs CBC & Chem 7: 12/01/21 04:33 12/01/21 04:33 Labs: Laboratory Last Values WBC 20.7 K/mm3 (4.5-11.0) H 12/01/21 04:33 RBC 3.20 M/mm3 (3.65-5.03) L 12/01/21 04:33 Hgb 8.7 gm/dl (10.1-14.3) L 12/01/21 04:33 Hct 27.5 % (30.3-42.9) L D 12/01/21 04:33 MCV 86 fl (79-97) 12/01/21 04:33 MCH 27 pg (28-32) L 12/01/21 04:33 MCHC 32 % (30-34) 12/01/21 04:33 RDW 15.4 % (13.2-15.2) H 12/01/21 04:33 Plt Count 395 K/mm3 (140-440) 12/01/21 04:33 Add Manual Diff Complete 11/30/21 15:56 Total Counted 100 11/30/21 15:56 Seg Neutrophils % Customer Expert 11/30/21 15:56 Seg Neuts % (Manual) 71.0 % (40.0-70.0) H 11/30/21 15:56 Band Neutrophils % 26.0 % 11/30/21 15:56 Lymphocytes % (Manual) 1.0 % (13.4-35.0) L 11/30/21 15:56 Reactive Lymphs % (Man) 0 % 11/30/21 15:56 Monocytes % (Manual) 1.0 % (0.0-7.3) 11/30/21 15:56 Eosinophils % (Manual) 0 % (0.0-4.3) 11/30/21 15:56 Basophils % (Manual) 0 % (0.0-1.8) 11/30/21 15:56 Metamyelocytes % 0 % 11/30/21 15:56 Myelocytes % 1.0 % 11/30/21 15:56 Promyelocytes % 0 % 11/30/21 15:56 Blast Cells % 0 % 11/30/21 15:56 Nucleated RBC % Not Reportable 11/30/21 15:56 Seg Neutrophils # Man 12.1 K/mm3 (1.8-7.7) H 11/30/21 15:56 Band Neutrophils # 4.4 K/mm3 11/30/21 15:56 Lymphocytes # (Manual) 0.2 K/mm3 (1.2-5.4) L 11/30/21 15:56 Abs React Lymphs (Man) 0.0 K/mm3 11/30/21 15:56 Monocytes # (Manual) 0.2 K/mm3 (0.0-0.8) 11/30/21 15:56 Eosinophils # (Manual) 0.0 K/mm3 (0.0-0.4) 11/30/21 15:56 Basophils # (Manual) 0.0 K/mm3 (0.0-0.1) 11/30/21 15:56 Metamyelocytes # 0.0 K/mm3 11/30/21 15:56 Myelocytes # 0.2 K/mm3 11/30/21 15:56 Promyelocytes # 0.0 K/mm3 11/30/21 15:56 Blast Cells # 0.0 K/mm3 11/30/21 15:56 WBC Morphology Not Reportable 11/30/21 15:56 Hypersegmented Neuts Not Reportable 11/30/21 15:56 Hyposegmented Neuts Not Reportable 11/30/21 15:56 Hypogranular Neuts Not Reportable 11/30/21 15:56 Smudge Cells Not Reportable 11/30/21 15:56 Toxic Granulation Not Reportable 11/30/21 15:56 Toxic Vacuolation Not Reportable 11/30/21 15:56 Dohle Bodies Not Reportable 11/30/21 15:56 Pelger-Huet Anomaly Not Reportable 11/30/21 15:56 Mary Rods Not Reportable 11/30/21 15:56 Platelet Estimate Consistent w auto 11/30/21 15:56 Clumped Platelets Not Reportable 11/30/21 15:56 Plt Clumps, EDTA Not Reportable 11/30/21 15:56 Large Platelets Not Reportable 11/30/21 15:56 Giant Platelets Not Reportable 11/30/21 15:56 Platelet Satelliting Not Reportable 11/30/21 15:56 Plt Morphology Comment Not Reportable 11/30/21 15:56 RBC Morphology Not Reportable 11/30/21 15:56 Dimorphic RBCs Not Reportable 11/30/21 15:56 Polychromasia Not Reportable 11/30/21 15:56 Hypochromasia Not Reportable 11/30/21 15:56 Poikilocytosis Not Reportable 11/30/21 15:56 Anisocytosis Not Reportable 11/30/21 15:56 Microcytosis Not Reportable 11/30/21 15:56 Macrocytosis Not Reportable 11/30/21 15:56 Spherocytes Few 11/30/21 15:56 Pappenheimer Bodies Not Reportable 11/30/21 15:56 Sickle Cells Not Reportable 11/30/21 15:56 Target Cells Not Reportable 11/30/21 15:56 Tear Drop Cells Not Reportable 11/30/21 15:56 Ovalocytes Not Reportable 11/30/21 15:56 Helmet Cells Not Reportable 11/30/21 15:56 [place] Bodies Not Reportable 11/30/21 15:56 Brea Rings Not Reportable 11/30/21 15:56 [place] Cells Not Reportable 11/30/21 15:56 Bite Cells Not Reportable 11/30/21 15:56 Crenated Cell Not Reportable 11/30/21 15:56 Elliptocytes Not Reportable 11/30/21 15:56 Acanthocytes (Spur) Not Reportable 11/30/21 15:56 Rouleaux Not Reportable 11/30/21 15:56 Hemoglobin C Crystals Not Reportable 11/30/21 15:56 Schistocytes Not Reportable 11/30/21 15:56 Malaria parasites Not Reportable 11/30/21 15:56 Kvng Bodies Not Reportable 11/30/21 15:56 Hem Pathologist Commnt F 11/30/21 15:56 PT 23.9 Sec. (12.2-14.9) H 11/30/21 15:56 INR 1.87 (0.87-1.13) H 11/30/21 15:56 APTT 43.1 Sec. (24.2-36.6) H 11/30/21 15:56 VBG pH 7.509 (7.320-7.420) H 11/30/21 15:57 Sodium 138 mmol/L (137-145) D 12/01/21 04:33 Potassium 3.1 mmol/L (3.6-5.0) L 12/01/21 04:33 Chloride 105.6 mmol/L (98-107) 12/01/21 04:33 Carbon Dioxide 21 mmol/L (22-30) L 12/01/21 04:33 Anion Gap 15 mmol/L 12/01/21 04:33 BUN 10 mg/dL (7-17) 12/01/21 04:33 Creatinine 0.7 mg/dL (0.6-1.2) 12/01/21 04:33 Estimated GFR > 60 ml/min 12/01/21 04:33 BUN/Creatinine Ratio 14 % 12/01/21 04:33 Glucose 115 mg/dL (65-100) H 12/01/21 04:33 Lactic Acid 1.20 mmol/L (0.7-2.0) 11/30/21 17:23 Calcium 7.4 mg/dL (8.4-10.2) L 12/01/21 04:33 Total Bilirubin 0.40 mg/dL (0.1-1.2) 11/30/21 15:56 AST 16 units/L (5-40) 11/30/21 15:56 ALT 7 units/L (7-56) 11/30/21 15:56 Alkaline Phosphatase 80 units/L (35-129) 11/30/21 15:56 Troponin T 0.119 ng/mL (0.00-0.029) H* 11/30/21 15:56 Total Protein 4.2 g/dL (6.3-8.2) L 11/30/21 15:56 Albumin 2.4 g/dL (3.9-5) L 11/30/21 15:56 Albumin/Globulin Ratio 1.3 % 11/30/21 15:56 Triglycerides 108 mg/dL (2-149) 11/30/21 15:56 Cholesterol 82 mg/dL (50-199) 11/30/21 15:56 LDL Cholesterol Direct 38 mg/dL (50-130) L 11/30/21 15:56 HDL Cholesterol 28 mg/dL (40-59) L 11/30/21 15:56 Cholesterol/HDL Ratio 2.92 % 11/30/21 15:56 TSH 1.870 mlU/mL (0.270-4.200) 11/30/21 15:57 Urine Color Yellow (Yellow) 11/30/21 02:50 Urine Turbidity Clear (Clear) 11/30/21 02:50 Urine pH 6.0 (5.0-7.0) 11/30/21 02:50 Ur Specific [place] 1.005 (1.003-1.030) 11/30/21 02:50 Urine Protein <15 mg/dl mg/dL (Negative) 11/30/21 02:50 Urine Glucose (UA) Neg mg/dL (Negative) 11/30/21 02:50 Urine Ketones Neg mg/dL (Negative) 11/30/21 02:50 Urine Blood Sm (Negative) 11/30/21 02:50 Urine Nitrite Neg (Negative) 11/30/21 02:50 Urine Bilirubin Neg (Negative) 11/30/21 02:50 Urine Urobilinogen < 2.0 mg/dL (<2.0) 11/30/21 02:50 Ur Leukocyte Esterase Neg (Negative) 11/30/21 02:50 Urine WBC (Auto) 2.0 /HPF (0.0-6.0) 11/30/21 02:50 Urine RBC (Auto) 2.0 /HPF (0.0-6.0) 11/30/21 02:50 U Epithel Cells (Auto) 1.0 /HPF (0-13.0) 11/30/21 02:50 Urine Bacteria (Auto) 1+ /HPF (Negative) 11/30/21 02:50 Urine Yeast (Budding) 1+ /HPF 11/30/21 02:50 Blood Type O POSITIVE 11/30/21 17:23 Antibody Screen Negative 11/30/21 17:23 Crossmatch See Detail 11/30/21 17:23 Short CBC 11/30/21 12/01/21 Range/Units 15:56 04:33 WBC 17.0 H 20.7 H (4.5-11.0) K/mm3 Hgb 6.2 L 8.7 L (10.1-14.3) gm/dl Hct 19.2 L* 27.5 L D (30.3-42.9) % Plt Count 286 395 (140-440) K/mm3 BMP 11/30/21 12/01/21 15:56 04:33 Sodium 131 L 138 D Potassium 3.6 3.1 L Chloride 98.3 105.6 Carbon Dioxide 22 21 L BUN 9 10 Creatinine 1.3 H 0.7 Glucose 104 H 115 H Calcium 7.3 L 7.4 L Cardiac Enzymes 11/30/21 Range/Units 15:56 Troponin T 0.119 H* (0.00-0.029) ng/mL Liver Function 11/30/21 Range/Units 15:56 Total Bilirubin 0.40 (0.1-1.2) mg/dL AST 16 (5-40) units/L ALT 7 (7-56) units/L Alkaline Phosphatase 80 (35-129) units/L Albumin 2.4 L (3.9-5) g/dL Urine 11/30/21 Range/Units 02:50 Urine Color Yellow (Yellow) Urine pH 6.0 (5.0-7.0) Ur Specific [place] 1.005 (1.003-1.030) Urine Protein <15 mg/dl (Negative) mg/dL Urine Glucose (UA) Neg (Negative) mg/dL Short CBC 11/30/21 12/01/21 Range/Units 15:56 04:33 WBC 17.0 H 20.7 H (4.5-11.0) K/mm3 Hgb 6.2 L 8.7 L (10.1-14.3) gm/dl Hct 19.2 L* 27.5 L D (30.3-42.9) % Plt Count 286 395 (140-440) K/mm3 [facility] [place] 11/30/21 12/01/21 15:56 04:33 Sodium 131 L 138 D Potassium 3.6 3.1 L Chloride 98.3 105.6 Carbon Dioxide 22 21 L BUN 9 10 Creatinine 1.3 H 0.7 Glucose 104 H 115 H Calcium 7.3 L 7.4 L Cardiac Enzymes 11/30/21 Range/Units 15:56 Troponin T 0.119 H* (0.00-0.029) ng/mL Liver Function 11/30/21 Range/Units 15:56 Total Bilirubin 0.40 (0.1-1.2) mg/dL AST 16 (5-40) units/L ALT 7 (7-56) units/L Alkaline Phosphatase 80 (35-129) units/L Albumin 2.4 L (3.9-5) g/dL Urine 11/30/21 Range/Units 02:50 Urine Color Yellow (Yellow) Urine pH 6.0 (5.0-7.0) Ur Specific [place] 1.005 (1.003-1.030) Urine Protein <15 mg/dl (Negative) mg/dL Urine Glucose (UA) Neg (Negative) mg/dL Short CBC 11/30/21 12/01/21 Range/Units 15:56 04:33 WBC 17.0 H 20.7 H (4.5-11.0) K/mm3 Hgb 6.2 L 8.7 L (10.1-14.3) gm/dl Hct 19.2 L* 27.5 L D (30.3-42.9) % Plt Count 286 395 (140-440) K/mm3 [facility] [place] 11/30/21 12/01/21 15:56 04:33 Sodium 131 L 138 D Potassium 3.6 3.1 L Chloride 98.3 105.6 Carbon Dioxide 22 21 L BUN 9 10 Creatinine 1.3 H 0.7 Glucose 104 H 115 H Calcium 7.3 L 7.4 L Cardiac Enzymes 11/30/21 Range/Units 15:56 Troponin T 0.119 H* (0.00-0.029) ng/mL Liver Function 11/30/21 Range/Units 15:56 Total Bilirubin 0.40 (0.1-1.2) mg/dL AST 16 (5-40) units/L ALT 7 (7-56) units/L Alkaline Phosphatase 80 (35-129) units/L Albumin 2.4 L (3.9-5) g/dL Urine 11/30/21 Range/Units 02:50 Urine Color Yellow (Yellow) Urine pH 6.0 (5.0-7.0) Ur Specific [place] 1.005 (1.003-1.030) Urine Protein <15 mg/dl (Negative) mg/dL Urine Glucose (UA) Neg (Negative) mg/dL Microbiology: Microbiology 11/30/21 15:56 Peripheral/Venous Blood Culture - Preliminary Culture in Progress 11/30/21 15:56 Peripheral/Venous Blood Culture - Preliminary Culture in Progress - Imaging and Cardiology Chest x-ray: report reviewed Victor/IV: Voiding Method External Female Catheter Assessment and Plan Assessment and plan: Critical care statement the high probability OF a clinically significant sudden or life-threatening deterioration of the cardiorespiratory system and endocrine system required my full and direct attention, intervention and postoperative management. The aggregate critical care time was 40 minutes. The time is in addition to time spent performing reported procedures but includes the followin: Data review and interpretation 2: Patient assessment and monitoring of vital signs 3: Documentation 4:: Medication orders and management Advance Directives: Yes (Full code) VTE prophylaxis?: Chemical Plan of care discussed with patient/family: Yes - Patient Problems (1) Acute metabolic encephalopathy Current Visit: No Status: Acute Plan to address problem: Patient with altered sensorium. Improving Probably secondary to sepsis and hypotension (2) Sepsis Current Visit: Yes Status: Acute Qualifiers: Severe sepsis shock status: with septic shock Plan to address problem: Patient initiated on sepsis protocol and IV Levophed IV cefepime and IV vancomycin ID consult requested (3) Peripheral arterial disease with history of revascularization Current Visit: Yes Status: Acute Plan to address problem: Patient had fasciotomy of the left lower extremity and a wound VAC and femoropopliteal bypass bilaterally Vascular surgery consulted (4) Symptomatic anemia Current Visit: Yes Status: Acute Plan to address problem: Hemoglobin is 6.2 and hematocrit is 19.2 Patient will be transfused 1 to 2 units of packed red blood cells (5) Hypokalemia Current Visit: Yes Status: Acute Plan to address problem: Supplemented (6) SUSANA (acute kidney injury) Current Visit: Yes Status: Acute Plan to address problem: Secondary to volume depletion and vasomotor nephropathy IV fluids for now and monitor creatinine (7) Elevated troponin Current Visit: Yes Status: Acute Plan to address problem: Probably troponin leak and will repeat troponin levels (8) Malnutrition Current Visit: Yes Status: Acute Qualifiers: Protein-calorie malnutrition severity: severe Plan to address problem: Severe malnutrition Albumin is 2.1 Patient started on dietary supplements and dietitian consult (9) DVT prophylaxis Current Visit: Yes Status: Acute Plan to address problem: On anticoagulation GI prophylaxis (10) Advance care planning Current Visit: Yes Status: Acute Plan to address problem: Disease education conducted, care plan discussed, diagnosis discussed and patient acknowledges understanding with care plan. +30 minutes.
[2021-12-01] MEDS ORDERED: POTASSIUM CHLORIDE ER 20 MEQ TAB PO ONE (06:40)
[2021-12-01 07:00] LABS: Band Neutrophils # (Manual) 1.7 K/mm3; Basophils % (Manual) 0 % (0.0-1.8); Eosinophils % (Manual) 0 % (0.0-4.3); Total Cells Counted 100
[2021-12-01 07:01] LABS: Anisocytosis 1+; Hypochromasia 2+; Ovalocytes Few; Poikilocytosis Few
[2021-12-01 07:02] LABS: Platelet Estimate Consistent w Auto
[2021-12-01] MEDS: oxyCODONE /ACETAMINOPHEN 5-325MG TAB PO PRN ×2 (07:13→18:49)
[2021-12-01] MEDS: CEFEPIME/NS 2 GM/100 ML 2 GM/100 ML BAG IV SCH ×2 (10:06→22:31)
[2021-12-01] MEDS: HYDROmorphone 1 MG/1 ML INJ IV PRN ×2 (11:11→16:29)
[2021-12-01] MEDS: LACTATED RINGERS 1,000 ML IV SCH ×3 (11:15→13:24)
--- NOTE | 2021-12-01 11:19 | Consultation ---
History of Present Illness - Reason for Consult Consult date: 12/01/21 Sepsis Requesting physician: JAIRO ACOSTA - History of Present Illness The patient is a 56/F with peripheral vascular disease, tobacco abuse, peripheral neuropathy, prior CVA, recent admission for critical limb ischemia of LLE requiring L LICENSED NURSE PRACTITIONER to popliteal bypass complicated by compartment syndrome requiring 4 compartment fasciotomy, woundVAC in groin region was discharged to rehab and sent home about 2 days prior to admission was admitted this time with AMS and weakness. Upon admission, noted to be hypotensive, septic, started on empiric abx. CXR with no pneumonia. UA without pyuria. No fever. Currently on cefepime and vancomycin. Review of Systems: General: no fevers,chills or rigors HEENT: no new visual disturbance Respiratory: No cough, sputum, hemoptysis or shortness of breath Cardiovascular: No chest pain, syncope Gastrointestinal: No nausea, vomiting or diarrhea Genitourinary: No dysuria or hematuria Musculoskeletal: No new or worsening neck pain or back pain Neurologic: No headaches, seizures Hematologic: No easy bruising or bleeding Endocrine: No night sweats or acute weight loss Skin: negative for rash, jaundice Psychiatric: No suicidal or homicidal ideation Medications and Allergies Allergies Allergy/AdvReac Type Severity Reaction Status Date / Time No Known Allergies Allergy Verified 10/20/21 09:17 Home Medications Medication Instructions Recorded Confirmed Last Taken Type Apixaban [Eliquis] 2.5 mg PO Q12HR #60 tab 09/01/21 10/10/21 Unknown Rx AtorvaSTATin [Lipitor] 40 mg PO DAILY 09/01/21 10/10/21 08/31/21 History 1 tab Clopidogrel [Plavix] 75 mg PO QDAY #90 tablet 09/01/21 10/10/21 Unknown Rx Gabapentin 100 mg PO BID 09/01/21 10/10/21 08/31/21 History 2 tabs Pantoprazole [Protonix] 40 mg PO QDAY #90 tablet 09/01/21 10/10/21 Unknown Rx amLODIPine 5 mg PO DAILY 09/01/21 10/10/21 08/31/21 History 1 tab carvediloL [Coreg] 25 mg PO BID 09/01/21 10/10/21 08/31/21 History 2 tabs cilostazoL [Pletal] 50 mg PO BID 04/10/10/21 08/31/21 History 2 tabs traZODone [Desyrel] 100 mg PO QHS 09/01/21 10/10/21 08/31/21 History 1 tab Venlafaxine [Effexor] 75 mg PO DAILY 11/02/21 11/02/21 Unknown History Active Meds: Active Medications Acetaminophen (Acetaminophen 325 Mg Tab) 650 mg PO Q4H PRN PRN Reason: Pain MILD(1-3)/Fever >100.5/GONZALEZ Hydromorphone HCl (Hydromorphone 1 Mg/1 Ml Inj) 0.5 mg IV Q4H PRN PRN Reason: Pain , Severe (7-10) Last Admin: 12/01/21 11:11 Dose: 0.5 mg NORepinephrine/NS 8 MG-250 ML (Norepinephrine/Ns 8 Mg-250 Ml (Double Conc)) 8 mg in 250 mls @ 3.75 mls/hr IV TITRATE [facility]; Protocol Last Admin: 12/01/21 05:04 Dose: 6 mcg/min, 11.25 mls/hr Cefepime HCl (Cefepime/Ns 2 Gm/100 Ml) 2 gm in 100 mls @ 200 mls/hr IV Q12H [facility]; Protocol Last Admin: 12/01/21 10:06 Dose: 200 mls/hr Vancomycin HCl (Vancomycin/Ns 1 Gm/250 Ml) 1 gm in 250 mls @ 167.007 mls/hr IV Q24H [facility] Lactated Ringer's (Lactated Ringers) 1,000 mls @ 999 mls/hr IV Q1H [facility] Stop: 12/01/21 14:14 Last Admin: 12/01/21 11:15 Dose: 999 mls/hr Ondansetron HCl (Ondansetron 4 Mg/2 Ml Inj) 4 mg IV Q8H PRN PRN Reason: Nausea And Vomiting Oxycodone/Acetaminophen (Oxycodone /Acetaminophen 5-325mg Tab) 1 tab PO Q6H PRN PRN Reason: Pain, Moderate (4-6) Last Admin: 12/01/21 07:13 Dose: 1 tab Potassium Chloride (Potassium Chloride Er 20 Meq Tab) 40 meq PO ONCE ONE Stop: 12/01/21 11:16 Sodium Chloride (Sodium Chloride 0.9% 10 Ml Flush Syringe) 10 ml IV BID [facility] Last Admin: 12/01/21 09:10 Dose: 10 ml Sodium Chloride (Sodium Chloride 0.9% 10 Ml Flush Syringe) 10 ml IV PRN PRN PRN Reason: LINE FLUSH Physical Examination - Physical Exam Narrative exam: Physical Exam: Constitutional: Alert, cooperative. No acute distress Head, Ears, Nose: Normocephalic, atraumatic. External ears, nose normal Eyes: Conjunctivae/corneas clear. No icterus. No ptosis. Neck: Supple, no meningeal signs Cardiovascular: S1, S2 + Respiratory: Good air entry, clear to auscultation bilaterally GI: Soft, non-tender; bowel sounds normal. No peritoneal signs Musculoskeletal: LLE with dressing, left groin with wound VAC Skin: No rash or abscess Hem/Lymphatic: No palpable cervical or supraclavicular nodes. No lymphangitis Psych: Mood ok. Affect normal Neurological: Awake, alert, oriented. No gross abnormality - Constitutional Vitals: Vital Signs Temp Pulse Resp BP Pulse Ox 97.6 F 68 13 86/48 97 12/01/21 08:16 12/01/21 11:00 12/01/21 11:00 12/01/21 11:00 12/01/21 11:00 Temperature -Last 24 Hours Temperature 97.6 F Temperature 97.5 F Temperature 97.5 F Temperature 97.3 F Temperature 98.4 F Temperature 98.4 F Temperature 98.8 F Temperature 99.7 F Results - Labs CBC & Chem 7: 12/01/21 04:33 12/01/21 04:33 Labs: Abnormal lab results 11/30/21 11/30/21 11/30/21 Range/Units 15:56 15:56 15:56 WBC 17.0 H (4.5-11.0) K/mm3 RBC 2.26 L (3.65-5.03) M/mm3 Hgb 6.2 L (10.1-14.3) gm/dl Hct 19.2 L* (30.3-42.9) % MCH 27 L (28-32) pg RDW 16.6 H (13.2-15.2) % Seg Neuts % (Manual) 71.0 H (40.0-70.0) % Lymphocytes % (Manual) 1.0 L (13.4-35.0) % Seg Neutrophils # Man 12.1 H (1.8-7.7) K/mm3 Lymphocytes # (Manual) 0.2 L (1.2-5.4) K/mm3 PT 23.9 H (12.2-14.9) Sec. INR 1.87 H (0.87-1.13) APTT 43.1 H (24.2-36.6) Sec. VBG pH (7.320-7.420) Sodium 131 L (137-145) mmol/L Potassium (3.6-5.0) mmol/L Carbon Dioxide (22-30) mmol/L Creatinine 1.3 H (0.6-1.2) mg/dL Glucose 104 H (65-100) mg/dL Calcium 7.3 L (8.4-10.2) mg/dL Troponin T 0.119 H* (0.00-0.029) ng/mL Total Protein 4.2 L (6.3-8.2) g/dL Albumin 2.4 L (3.9-5) g/dL LDL Cholesterol Direct 38 L (50-130) mg/dL HDL Cholesterol 28 L (40-59) mg/dL Crossmatch 11/30/21 11/30/21 12/01/21 Range/Units 15:57 17:23 04:33 WBC 20.7 H (4.5-11.0) K/mm3 RBC 3.20 L (3.65-5.03) M/mm3 Hgb 8.7 L (10.1-14.3) gm/dl Hct 27.5 L D (30.3-42.9) % MCH 27 L (28-32) pg RDW 15.4 H (13.2-15.2) % Seg Neuts % (Manual) 82.0 H (40.0-70.0) % Lymphocytes % (Manual) 5.0 L (13.4-35.0) % Seg Neutrophils # Man 17.0 H (1.8-7.7) K/mm3 Lymphocytes # (Manual) 1.0 L (1.2-5.4) K/mm3 PT (12.2-14.9) Sec. INR (0.87-1.13) APTT (24.2-36.6) Sec. VBG pH 7.509 H (7.320-7.420) Sodium (137-145) mmol/L Potassium (3.6-5.0) mmol/L Carbon Dioxide (22-30) mmol/L Creatinine (0.6-1.2) mg/dL Glucose (65-100) mg/dL Calcium (8.4-10.2) mg/dL Troponin T (0.00-0.029) ng/mL Total Protein (6.3-8.2) g/dL Albumin (3.9-5) g/dL LDL Cholesterol Direct (50-130) mg/dL HDL Cholesterol (40-59) mg/dL Crossmatch See Detail 12/01/21 Range/Units 04:33 WBC (4.5-11.0) K/mm3 RBC (3.65-5.03) M/mm3 Hgb (10.1-14.3) gm/dl Hct (30.3-42.9) % MCH (28-32) pg RDW (13.2-15.2) % Seg Neuts % (Manual) (40.0-70.0) % Lymphocytes % (Manual) (13.4-35.0) % Seg Neutrophils # Man (1.8-7.7) K/mm3 Lymphocytes # (Manual) (1.2-5.4) K/mm3 PT (12.2-14.9) Sec. INR (0.87-1.13) APTT (24.2-36.6) Sec. VBG pH (7.320-7.420) Sodium (137-145) mmol/L Potassium 3.1 L (3.6-5.0) mmol/L Carbon Dioxide 21 L (22-30) mmol/L Creatinine (0.6-1.2) mg/dL Glucose 115 H (65-100) mg/dL Calcium 7.4 L (8.4-10.2) mg/dL Troponin T (0.00-0.029) ng/mL Total Protein (6.3-8.2) g/dL Albumin (3.9-5) g/dL LDL Cholesterol Direct (50-130) mg/dL HDL Cholesterol (40-59) mg/dL Crossmatch - Imaging and Cardiology Chest x-ray: report reviewed, image reviewed (no pneumonia) Assessment and Plan Cultures: 11/30/2021 blood culture: In process A/P: 56/F with peripheral vascular disease, tobacco abuse, peripheral neuropathy, prior CVA, recent admission for critical limb ischemia of LLE requiring L LICENSED NURSE PRACTITIONER to popliteal bypass complicated by compartment syndrome requiring 4 compartment fasciotomy, woundVAC in groin region was discharged to rehab and sent home about 2 days prior to admission was admitted this time with AMS and weakness: #Septic shock: Chest x-ray without pneumonia, UA without any pyuria. Source could be wound infection causing a transient bacteremia. Follow-up blood cultures. #Peripheral vascular disease, recent revascularization of LLE, compartment syndrome requiring fasciotomy #Acute anemia #SUSANA: Creatinine improving. Recs: Continue empiric cefepime, vancomycin Follow-up blood cultures Wound care Marcelo Tomas MD, FACP, CR [facility] ([facility] O: [phone] F: [phone] C: [phone]
[2021-12-01] MEDS ORDERED: POTASSIUM CHLORIDE ER 20 MEQ TAB PO SCH (12:00)
--- NOTE | 2021-12-01 12:19 | Consultation ---
History of Present Illness - Reason for Consult Consult date: 12/01/21 Hypotension - History of Present Illness 56 y/o female, known to me from last admission, readmitted last night with hypotension and leg swelling with elevated white count. Patient also having pain and per patient the leg smells different. Medications and Allergies Allergies Allergy/AdvReac Type Severity Reaction Status Date / Time No Known Allergies Allergy Verified 10/20/21 09:17 Home Medications Medication Instructions Recorded Confirmed Last Taken Type Apixaban [Eliquis] 2.5 mg PO Q12HR #60 tab 09/01/21 10/10/21 Unknown Rx AtorvaSTATin [Lipitor] 40 mg PO DAILY 09/01/21 10/10/21 08/31/21 History 1 tab Clopidogrel [Plavix] 75 mg PO QDAY #90 tablet 09/01/21 10/10/21 Unknown Rx Gabapentin 100 mg PO BID 09/01/21 10/10/21 08/31/21 History 2 tabs Pantoprazole [Protonix] 40 mg PO QDAY #90 tablet 09/01/21 10/10/21 Unknown Rx amLODIPine 5 mg PO DAILY 09/01/21 10/10/21 08/31/21 History 1 tab carvediloL [Coreg] 25 mg PO BID 09/01/21 10/10/21 08/31/21 History 2 tabs cilostazoL [Pletal] 50 mg PO BID 09/01/21 10/10/21 08/31/21 History 2 tabs traZODone [Desyrel] 100 mg PO QHS 09/01/21 10/10/21 08/31/21 History 1 tab Venlafaxine [Effexor] 75 mg PO DAILY 11/02/21 11/02/21 Unknown History Active Meds: Active Medications Acetaminophen (Acetaminophen 325 Mg Tab) 650 mg PO Q4H PRN PRN Reason: Pain MILD(1-3)/Fever >100.5/GONZALEZ Hydromorphone HCl (Hydromorphone 1 Mg/1 Ml Inj) 0.5 mg IV Q4H PRN PRN Reason: Pain , Severe (7-10) Last Admin: 12/01/21 11:11 Dose: 0.5 mg NORepinephrine/NS 8 MG-250 ML (Norepinephrine/Ns 8 Mg-250 Ml (Double Conc)) 8 mg in 250 mls @ 3.75 mls/hr IV TITRATE SRAVAN; Protocol Last Admin: 12/01/21 05:04 Dose: 6 mcg/min, 11.25 mls/hr Cefepime HCl (Cefepime/Ns 2 Gm/100 Ml) 2 gm in 100 mls @ 200 mls/hr IV Q12H [facility]; Protocol Last Admin: 12/01/21 10:06 Dose: 200 mls/hr Vancomycin HCl (Vancomycin/Ns 1 Gm/250 Ml) 1 gm in 250 mls @ 167.007 mls/hr IV Q24H [facility] Lactated Ringer's (Lactated Ringers) 1,000 mls @ 999 mls/hr IV Q1H [facility] Stop: 12/01/21 14:14 Last Admin: 12/01/21 11:15 Dose: 999 mls/hr Ondansetron HCl (Ondansetron 4 Mg/2 Ml Inj) 4 mg IV Q8H PRN PRN Reason: Nausea And Vomiting Oxycodone/Acetaminophen (Oxycodone /Acetaminophen 5-325mg Tab) 1 tab PO Q6H PRN PRN Reason: Pain, Moderate (4-6) Last Admin: 12/01/21 07:13 Dose: 1 tab Potassium Chloride (Potassium Chloride Er 20 Meq Tab) 40 meq PO ONCE@1200 [facility] Stop: 12/01/21 16:00 Last Admin: 12/01/21 11:38 Dose: 40 meq Sodium Chloride (Sodium Chloride 0.9% 10 Ml Flush Syringe) 10 ml IV BID [facility] Last Admin: 12/01/21 09:10 Dose: 10 ml Sodium Chloride (Sodium Chloride 0.9% 10 Ml Flush Syringe) 10 ml IV PRN PRN PRN Reason: LINE FLUSH Review of Systems All systems: negative Exam - Constitutional Vitals: Temp Pulse Resp BP Pulse Ox 97.5 F L 68 13 86/48 97 12/01/21 12:05 12/01/21 11:00 12/01/21 11:00 12/01/21 11:00 12/01/21 11:00 General appearance: Present: no acute distress - EENT Eyes: Present: PERRL, EOM intact ENT: hearing intact - Neck Neck: Present: supple, normal ROM - Respiratory Respiratory effort: normal Respiratory: bilateral: CTA Results - Labs CBC & Chem 7: 12/01/21 04:33 12/01/21 04:33 Labs: Abnormal lab results 11/30/21 11/30/21 11/30/21 Range/Units 15:56 15:56 15:56 WBC 17.0 H (4.5-11.0) K/mm3 RBC 2.26 L (3.65-5.03) M/mm3 Hgb 6.2 L (10.1-14.3) gm/dl Hct 19.2 L* (30.3-42.9) % MCH 27 L (28-32) pg RDW 16.6 H (13.2-15.2) % Seg Neuts % (Manual) 71.0 H (40.0-70.0) % Lymphocytes % (Manual) 1.0 L (13.4-35.0) % Seg Neutrophils # Man 12.1 H (1.8-7.7) K/mm3 Lymphocytes # (Manual) 0.2 L (1.2-5.4) K/mm3 PT 23.9 H (12.2-14.9) Sec. INR 1.87 H (0.87-1.13) APTT 43.1 H (24.2-36.6) Sec. VBG pH (7.320-7.420) Sodium 131 L (137-145) mmol/L Potassium (3.6-5.0) mmol/L Carbon Dioxide (22-30) mmol/L Creatinine 1.3 H (0.6-1.2) mg/dL Glucose 104 H (65-100) mg/dL Calcium 7.3 L (8.4-10.2) mg/dL Troponin T 0.119 H* (0.00-0.029) ng/mL Total Protein 4.2 L (6.3-8.2) g/dL Albumin 2.4 L (3.9-5) g/dL LDL Cholesterol Direct 38 L (50-130) mg/dL HDL Cholesterol 28 L (40-59) mg/dL Crossmatch 11/30/21 11/30/21 12/01/21 Range/Units 15:57 17:23 04:33 WBC 20.7 H (4.5-11.0) K/mm3 RBC 3.20 L (3.65-5.03) M/mm3 Hgb 8.7 L (10.1-14.3) gm/dl Hct 27.5 L D (30.3-42.9) % MCH 27 L (28-32) pg RDW 15.4 H (13.2-15.2) % Seg Neuts % (Manual) 82.0 H (40.0-70.0) % Lymphocytes % (Manual) 5.0 L (13.4-35.0) % Seg Neutrophils # Man 17.0 H (1.8-7.7) K/mm3 Lymphocytes # (Manual) 1.0 L (1.2-5.4) K/mm3 PT (12.2-14.9) Sec. INR (0.87-1.13) APTT (24.2-36.6) Sec. VBG pH 7.509 H (7.320-7.420) Sodium (137-145) mmol/L Potassium (3.6-5.0) mmol/L Carbon Dioxide (22-30) mmol/L Creatinine (0.6-1.2) mg/dL Glucose (65-100) mg/dL Calcium (8.4-10.2) mg/dL Troponin T (0.00-0.029) ng/mL Total Protein (6.3-8.2) g/dL Albumin (3.9-5) g/dL LDL Cholesterol Direct (50-130) mg/dL HDL Cholesterol (40-59) mg/dL Crossmatch See Detail 12/01/21 Range/Units 04:33 WBC (4.5-11.0) K/mm3 RBC (3.65-5.03) M/mm3 Hgb (10.1-14.3) gm/dl Hct (30.3-42.9) % MCH (28-32) pg RDW (13.2-15.2) % Seg Neuts % (Manual) (40.0-70.0) % Lymphocytes % (Manual) (13.4-35.0) % Seg Neutrophils # Man (1.8-7.7) K/mm3 Lymphocytes # (Manual) (1.2-5.4) K/mm3 PT (12.2-14.9) Sec. INR (0.87-1.13) APTT (24.2-36.6) Sec. VBG pH (7.320-7.420) Sodium (137-145) mmol/L Potassium 3.1 L (3.6-5.0) mmol/L Carbon Dioxide 21 L (22-30) mmol/L Creatinine (0.6-1.2) mg/dL Glucose 115 H (65-100) mg/dL Calcium 7.4 L (8.4-10.2) mg/dL Troponin T (0.00-0.029) ng/mL Total Protein (6.3-8.2) g/dL Albumin (3.9-5) g/dL LDL Cholesterol Direct (50-130) mg/dL HDL Cholesterol (40-59) mg/dL Crossmatch - Imaging and Cardiology Chest x-ray: image reviewed Assessment and Plan 56 y/o female with known PVD, admitted with hypotension, likely from sepsis, possibly related to lower ext. 1. Reviewed ID note 2 Continue abx 3. Follow up vascular recs 4. More fluid resuscitation, need to get patient off pressors. 5. Guarded prognosis. CCT 31 minutes.
[2021-12-01] MEDS ORDERED: LACTATED RINGERS 1,000 ML IV ONE ×2 (12:30→14:00)
--- NOTE | 2021-12-01 13:13 | Consultation ---
History of Present Illness - Reason for Consult Consult date: 12/01/21 LLE Fasciotomy with Leukocytosis Requesting physician: JAIRO ACOSTA - History of Present Illness The patient is a 56-year-old female with a history of tobacco abuse and severe peripheral vascular disease who was hospitalized approximately 1 month ago for a left femoral to below-knee popliteal artery bypass with PTFE. Her bypass thrombosed the following day requiring endovascular revascularization. She subsequently required a 4 compartment fasciotomy for compartment syndrome of her left lower extremity. She also underwent a right lower extremity revascularization, from a wrist approach, for right lower extremity ischemia during the same hospitalization. Her hospitalization was prolonged secondary to DTs which ultimately prevented her from ambulating postoperatively. This resulted in deconditioning and she required discharge to a [facility] facility which provided her very little rehab during her admission at the facility. The patient states she had an approximately 15 to 20 pound weight loss while at the facility and has had very little improvement in her ability to ambulate since her discharge from the hospital. She was brought to the emergency department yesterday after her family discovered her with a decreased mental status and she was found to have hypotension with a systolic blood pressure in the 60s. Upon admission to the hospital here she was still hypoten sive with an anemia and hemoglobin of 6.2. This required a blood transfusion of 1 unit of packed red blood cells as well as multiple fluid boluses. This also require the initiation of Levophed which she remains on at this time although it is being weaned down. At this time the patient complains of neuropathic pain of her left foot but she denies overall rest pain. She denies any fever or chills or any pain in her right foot. She denies any shortness of breath and has no additional complaints at this time. Past History Past Medical History: anemia, CAD, hypertension, hyperlipidemia, PVD Past Surgical History: Other (Left femoral to below-knee popliteal artery bypass, multiple endovascular interventions of bilateral lower extremities) Social history: smoking, alcohol abuse Medications and Allergies Allergies Allergy/AdvReac Type Severity Reaction Status Date / Time No Known Allergies Allergy Verified 10/20/21 09:17 Home Medications Medication Instructions Recorded Confirmed Last Taken Type Apixaban [Eliquis] 2.5 mg PO Q12HR #60 tab 09/01/21 10/10/21 Unknown Rx AtorvaSTATin [Lipitor] 40 mg PO DAILY 09/01/21 10/10/21 08/31/21 History 1 tab Clopidogrel [Plavix] 75 mg PO QDAY #90 tablet 09/01/21 10/10/21 Unknown Rx Gabapentin 100 mg PO BID 09/01/21 10/10/21 08/31/21 History 2 tabs Pantoprazole [Protonix] 40 mg PO QDAY #90 tablet 09/01/21 10/10/21 Unknown Rx amLODIPine 5 mg PO DAILY 09/01/21 10/10/21 08/31/21 History 1 tab carvediloL [Coreg] 25 mg PO BID 09/01/21 10/10/21 08/31/21 History 2 tabs cilostazoL [Pletal] 50 mg PO BID 09/01/21 10/10/21 08/31/21 History 2 tabs traZODone [Desyrel] 100 mg PO QHS 09/01/21 10/10/21 08/31/21 History 1 tab Venlafaxine [Effexor] 75 mg PO DAILY 11/02/21 11/02/21 Unknown History Active Meds: Active Medications Acetaminophen (Acetaminophen 325 Mg Tab) 650 mg PO Q4H PRN PRN Reason: Pain MILD(1-3)/Fever >100.5/GONZALEZ Hydromorphone HCl (Hydromorphone 1 Mg/1 Ml Inj) 0.5 mg IV Q4H PRN PRN Reason: Pain , Severe (7-10) Last Admin: 12/01/21 11:11 Dose: 0.5 mg NORepinephrine/NS 8 MG-250 ML (Norepinephrine/Ns 8 Mg-250 Ml (Double Conc)) 8 mg in 250 mls @ 3.75 mls/hr IV TITRATE SRAVAN; Protocol Last Titration: 12/01/21 12:19 Dose: 5 mcg/min, 9.375 mls/hr Cefepime HCl (Cefepime/Ns 2 Gm/100 Ml) 2 gm in 100 mls @ 200 mls/hr IV Q12H [facility]; Protocol Last Admin: 12/01/21 10:06 Dose: 200 mls/hr Vancomycin HCl (Vancomycin/Ns 1 Gm/250 Ml) 1 gm in 250 mls @ 167.007 mls/hr IV Q24H [facility] Lactated Ringer's (Lactated Ringers) 1,000 mls @ 999 mls/hr IV Q1H [facility] Stop: 12/01/21 14:14 Last Admin: 12/01/21 12:20 Dose: 999 mls/hr Ondansetron HCl (Ondansetron 4 Mg/2 Ml Inj) 4 mg IV Q8H PRN PRN Reason: Nausea And Vomiting Oxycodone/Acetaminophen (Oxycodone /Acetaminophen 5-325mg Tab) 1 tab PO Q6H PRN PRN Reason: Pain, Moderate (4-6) Last Admin: 12/01/21 07:13 Dose: 1 tab Potassium Chloride (Potassium Chloride Er 20 Meq Tab) 40 meq PO ONCE@1200 [facility] Stop: 12/01/21 16:00 Last Admin: 12/01/21 11:38 Dose: 40 meq Sodium Chloride (Sodium Chloride 0.9% 10 Ml Flush Syringe) 10 ml IV BID [facility] Last Admin: 12/01/21 09:10 Dose: 10 ml Sodium Chloride (Sodium Chloride 0.9% 10 Ml Flush Syringe) 10 ml IV PRN PRN PRN Reason: LINE FLUSH Review of Systems All systems: negative Exam - Constitutional Vitals: Temp Pulse Resp BP Pulse Ox 97.5 F L 74 16 94/53 94 12/01/21 12:05 12/01/21 12:15 12/01/21 12:15 12/01/21 12:15 12/01/21 12:15 General appearance: Present: cachectic - Respiratory Respiratory effort: normal - Cardiovascular Rhythm: regular - Extremities Extremities: normal temperature, abnormal (Left groin wound VAC intact without surrounding erythema, small ulceration on dorsal aspect of left foot left calf medial fasciotomy incision is healed with candie and sutures still intact) Extremity abnormal: edema (Edema of left lower extremity), ulceration (U lceration on dorsal aspect of right foot), pulses diminished (Nonpalpable pedal pulses bilaterally with Doppler signals intact), other (Bilateral heel eschar) - Abdominal General gastrointestinal: Present: soft, non-tender, non-distended Female genitourinary: Present: deferred - Rectal Rectal Exam: deferred - Psychiatric Psychiatric: appropriate mood/affect - Neurologic Neurologic: other (Sensation is intact in bilateral feet with bilateral foot drop) Results - Labs CBC & Chem 7: 12/01/21 04:33 12/01/21 04:33 Labs: Abnormal lab results 11/30/21 11/30/21 11/30/21 Range/Units 15:56 15:56 15:56 WBC 17.0 H (4.5-11.0) K/mm3 RBC 2.26 L (3.65-5.03) M/mm3 Hgb 6.2 L (10.1-14.3) gm/dl Hct 19.2 L* (30.3-42.9) % MCH 27 L (28-32) pg RDW 16.6 H (13.2-15.2) % Seg Neuts % (Manual) 71.0 H (40.0-70.0) % Lymphocytes % (Manual) 1.0 L (13.4-35.0) % Seg Neutrophils # Man 12.1 H (1.8-7.7) K/mm3 Lymphocytes # (Manual) 0.2 L (1.2-5.4) K/mm3 PT 23.9 H (12.2-14.9) Sec. INR 1.87 H (0.87-1.13) APTT 43.1 H (24.2-36.6) Sec. VBG pH (7.320-7.420) Sodium 131 L (137-145) mmol/L Potassium (3.6-5.0) mmol/L Carbon Dioxide (22-30) mmol/L Creatinine 1.3 H (0.6-1.2) mg/dL Glucose 104 H (65-100) mg/dL Calcium 7.3 L (8.4-10.2) mg/dL Troponin T 0.119 H* (0.00-0.029) ng/mL Total Protein 4.2 L (6.3-8.2) g/dL Albumin 2.4 L (3.9-5) g/dL LDL Cholesterol Direct 38 L (50-130) mg/dL HDL Cholesterol 28 L (40-59) mg/dL Crossmatch 11/30/21 11/30/21 12/01/21 Range/Units 15:57 17:23 04:33 WBC 20.7 H (4.5-11.0) K/mm3 RBC 3.20 L (3.65-5.03) M/mm3 Hgb 8.7 L (10.1-14.3) gm/dl Hct 27.5 L D (30.3-42.9) % MCH 27 L (28-32) pg RDW 15.4 H (13.2-15.2) % Seg Neuts % (Manual) 82.0 H (40.0-70.0) % Lymphocytes % (Manual) 5.0 L (13.4-35.0) % Seg Neutrophils # Man 17.0 H (1.8-7.7) K/mm3 Lymphocytes # (Manual) 1.0 L (1.2-5.4) K/mm3 PT (12.2-14.9) Sec. INR (0.87-1.13) APTT (24.2-36.6) Sec. VBG pH 7.509 H (7.320-7.420) Sodium (137-145) mmol/L Potassium (3.6-5.0) mmol/L Carbon Dioxide (22-30) mmol/L Creatinine (0.6-1.2) mg/dL Glucose (65-100) mg/dL Calcium (8.4-10.2) mg/dL Troponin T (0.00-0.029) ng/mL Total Protein (6.3-8.2) g/dL Albumin (3.9-5) g/dL LDL Cholesterol Direct (50-130) mg/dL HDL Cholesterol (40-59) mg/dL Crossmatch See Detail 12/01/21 Range/Units 04:33 WBC (4.5-11.0) K/mm3 RBC (3.65-5.03) M/mm3 Hgb (10.1-14.3) gm/dl Hct (30.3-42.9) % MCH (28-32) pg RDW (13.2-15.2) % Seg Neuts % (Manual) (40.0-70.0) % Lymphocytes % (Manual) (13.4-35.0) % Seg Neutrophils # Man (1.8-7.7) K/mm3 Lymphocytes # (Manual) (1.2-5.4) K/mm3 PT (12.2-14.9) Sec. INR (0.87-1.13) APTT (24.2-36.6) Sec. VBG pH (7.320-7.420) Sodium (137-145) mmol/L Potassium 3.1 L (3.6-5.0) mmol/L Carbon Dioxide 21 L (22-30) mmol/L Creatinine (0.6-1.2) mg/dL Glucose 115 H (65-100) mg/dL Calcium 7.4 L (8.4-10.2) mg/dL Troponin T (0.00-0.029) ng/mL Total Protein (6.3-8.2) g/dL Albumin (3.9-5) g/dL LDL Cholesterol Direct (50-130) mg/dL HDL Cholesterol (40-59) mg/dL Crossmatch Assessment and Plan The patient is a 56-year-old female who presents with hypotension, anemia, and leukocytosis approximately 6 weeks after her left femoral to below-knee popliteal artery bypass with PTFE. Although she is afebrile this is concerning. There was a period of time that the patient was in the [facility] facility that her wound VAC was not in place and there was copious drainage from her groin wound that may have infected her graft. The patient will require a CTA of the abdomen pelvis with runoff to rule out a graft infection. This can be performed over the weekend, after she has been weaned off of the Levophed. If she does have an infected graft this will require removal. Fortunately the graft is thrombosed and would not lead to ischemia however this is an additional operation for the patient who is already in a nutritional deficit and deconditioned at this time. I discussed this plan with the patient who expresse d understanding and agrees.
--- NOTE | 2021-12-01 18:15 | Progress Note ---
Assessment and Plan Assessment and plan: This is a 56 year old female with severe PVD, CAD, HTN, HLD, Anemia Neuro: h/o EtOH abuse, neuropathy -Reorientation as needed -Maintain sleep-wake cycle -As needed analgesia Cardiac: h/o HTN, HLD, CAD -Blood pressure monitoring per protocol -Vasopressor support with levophed -MAP goal greater than 65 Respiratory: h/o nicotine abuse -CCM consulted, appreciate recommendations -Pulmonary hygiene -SPO2 monitoring -Supplemental oxygen as needed next GI: Moderate Protein calorie malnutrition -Regular diet with nutritional supplementation -PPI -BR: coalce : Acute kidney injury secondary to vasomotor nephropathy, hypokalemia, metabolic acidosis -Nephrology consulted, appreciate recommendations -Strict intake and output -Renally dose medications -Avoid nephrotoxic medications -Replete Potassium -Trend BMP ID: Septic shock (POA), leukocytosis -Presented with leukocytosis, acute kidney injury, purulent drainage from leg wounds -Infectious disease consulted, appreciate recommendations -Antibiotic therapy with cefepime and vancomycin -WOCN consulted for wound care -f/u blood culture -Monitor WBC and temperature curve Endo: NAD -Avoid hypoglycemia Vascular/Heme: Acute Anemia, Severe PVD s/p left femoral to below-knee popliteal artery bypass with fasciotomy, right lower extremity vascularization -Admit h/h 6.2/19.2 -2 units PRBC -Trend CBC -Transfuse hemoglobin less than 7 -SCDs to BLE while in bed The high probability of a clinically significant, sudden or life threatening deterioration of the [multi] system(s) required my full and direct attention, intervention and personal management. The aggregate critical care time was [60] minutes. This time is in addition to time spent performing reported procedures but includes the following: [x] Data Review and interpretation [x] Patient assessment and monitoring of vital signs [x] Documentation [x] Medication orders and management Disposition Plan: icu Total Time Spent with Patient (Minutes): 60 History Interval history: This is a 56-year-old female with severe PVD, CAD, HTN, HLD, anemia, EtOH and tobacco abuse who is s/p left femoral to below the knee popliteal artery bypass complicated by compartment syndrome s/p fasciotomy and right leg revascularization who was discharged to SNF after almost 3 week stay via EMS for altered mental status and was hypoentive in ED despite fluid resuscitation was eventually started on Levophed with a placement of central line. Patient was also anemic with a hemoglobin of 6.2 and 1 unit PRBC was transfused. She also had leukocytosis, acute kidney injury, elevated troponin and purulent drainage from wounds. Patient was admitted to the hospital service with consult to vascular surgery, ID and CCM with Sepsis. Hospital course to date: 12/01: Additional LR boluses, KCL 40 PO, prn diludid given for pain. Wean levophed as tolerated. Hospitalist Physical - Physical exam Narrative exam: Physical Exam: VITAL SIGNS: Reviewed. GENERAL: The patient appears cachectic, Vital signs as documented. Obese HEAD: No signs of head trauma. EYES: Pupils are equal. Extraocular motions intact. EARS: Hearing grossly intact. MOUTH: Oropharynx is normal. NECK: No adenopathy, no JVD. CHEST: Chest with clear breath sounds bilaterally. No wheezes, rales, or rhonchi. CARDIAC: Regular rate and rhythm. S1 and S2, without murmurs, gallops, or rubs. VASCULAR: No Edema. Peripheral pulses dopplarable in BLE ABDOMEN: Soft, non tender and non distended. No rebound or guarding, and no masses palpated. Bowel Sounds normal. MUSCULOSKELETAL: Good range of motion of all major joints. Extremities without clubbing, cyanosis or edema. NEUROLOGIC EXAM: Alert and oriented x 4. no focal sensory or strength deficits. PSYCHIATRIC: Mood normal. SKIN: detail exam as documented in skin assessment - Constitutional Vitals: Temp Pulse Resp BP Pulse Ox 97.7 F 90 21 124/51 90 12/01/21 17:00 12/01/21 18:00 12/01/21 18:00 12/01/21 18:00 12/01/21 18:00 General appearance: Present: cachectic HEART Score - HEART Score Troponin: Troponin T 0.119 ng/mL (0.00-0.029) H* 11/30/21 15:56 Results - Labs CBC & Chem 7: 12/01/21 04:33 12/01/21 04:33 Labs: Laboratory Last Values WBC 20.7 K/mm3 (4.5-11.0) H 12/01/21 04:33 RBC 3.20 M/mm3 (3.65-5.03) L 12/01/21 04:33 Hgb 8.7 gm/dl (10.1-14.3) L 12/01/21 04:33 Hct 27.5 % (30.3-42.9) L D 12/01/21 04:33 MCV 86 fl (79-97) 12/01/21 04:33 MCH 27 pg (28-32) L 12/01/21 04:33 MCHC 32 % (30-34) 12/01/21 04:33 RDW 15.4 % (13.2-15.2) H 12/01/21 04:33 Plt Count 395 K/mm3 (140-440) 12/01/21 04:33 Add Manual Diff Complete 12/01/21 04:33 Total Counted 100 12/01/21 04:33 Seg Neutrophils % [employer] Dental Assistant 11/30/21 15:56 Seg Neuts % (Manual) 82.0 % (40.0-70.0) H 12/01/21 04:33 Band Neutrophils % 8.0 % 12/01/21 04:33 Lymphocytes % (Manual) 5.0 % (13.4-35.0) L 12/01/21 04:33 Reactive Lymphs % (Man) 0 % 12/01/21 04:33 Monocytes % (Manual) 4.0 % (0.0-7.3) 12/01/21 04:33 Eosinophils % (Manual) 0 % (0.0-4.3) 12/01/21 04:33 Basophils % (Manual) 0 % (0.0-1.8) 12/01/21 04:33 Metamyelocytes % 1.0 % 12/01/21 04:33 Myelocytes % 0 % 12/01/21 04:33 Promyelocytes % 0 % 12/01/21 04:33 Blast Cells % 0 % 12/01/21 04:33 Nucleated RBC % Not Reportable 12/01/21 04:33 Seg Neutrophils # Man 17.0 K/mm3 (1.8-7.7) H 12/01/21 04:33 Band Neutrophils # 1.7 K/mm3 12/01/21 04:33 Lymphocytes # (Manual) 1.0 K/mm3 (1.2-5.4) L 12/01/21 04:33 Abs React Lymphs (Man) 0.0 K/mm3 12/01/21 04:33 Monocytes # (Manual) 0.8 K/mm3 (0.0-0.8) 12/01/21 04:33 Eosinophils # (Manual) 0.0 K/mm3 (0.0-0.4) 12/01/21 04:33 Basophils # (Manual) 0.0 K/mm3 (0.0-0.1) 12/01/21 04:33 Metamyelocytes # 0.2 K/mm3 12/01/21 04:33 Myelocytes # 0.0 K/mm3 12/01/21 04:33 Promyelocytes # 0.0 K/mm3 12/01/21 04:33 Blast Cells # 0.0 K/mm3 12/01/21 04:33 WBC Morphology Not Reportable 12/01/21 04:33 Hypersegmented Neuts Not Reportable 12/01/21 04:33 Hyposegmented Neuts Not Reportable 12/01/21 04:33 Hypogranular Neuts Not Reportable 12/01/21 04:33 Smudge Cells Not Reportable 12/01/21 04:33 Toxic Granulation Not Reportable 12/01/21 04:33 Toxic Vacuolation Not Reportable 12/01/21 04:33 Dohle Bodies Not Reportable 12/01/21 04:33 Pelger-Huet Anomaly Not Reportable 12/01/21 04:33 Mary Rods Not Reportable 12/01/21 04:33 Platelet Estimate Consistent w auto 12/01/21 04:33 Clumped Platelets Not Reportable 12/01/21 04:33 Plt Clumps, EDTA Not Reportable 12/01/21 04:33 Large Platelets Not Reportable 12/01/21 04:33 Giant Platelets Not Reportable 12/01/21 04:33 Platelet Satelliting Not Reportable 12/01/21 04:33 Plt Morphology Comment Not Reportable 12/01/21 04:33 RBC Morphology Not Reportable 12/01/21 04:33 Dimorphic RBCs Not Reportable 12/01/21 04:33 Polychromasia Not Reportable 12/01/21 04:33 Hypochromasia 2+ 12/01/21 04:33 Poikilocytosis Few 12/01/21 04:33 Anisocytosis 1+ 12/01/21 04:33 Microcytosis 1+ 12/01/21 04:33 Macrocytosis Not Reportable 12/01/21 04:33 Spherocytes Not Reportable 12/01/21 04:33 Pappenheimer Bodies Not Reportable 12/01/21 04:33 Sickle Cells Not Reportable 12/01/21 04:33 Target Cells Not Reportable 12/01/21 04:33 Tear Drop Cells Not Reportable 12/01/21 04:33 Ovalocytes Few 12/01/21 04:33 Helmet Cells Not Reportable 12/01/21 04:33 [place] Bodies Not Reportable 12/01/21 04:33 [place] Rings Not Reportable 12/01/21 04:33 [place] Cells Not Reportable 12/01/21 04:33 Bite Cells Not Reportable 12/01/21 04:33 Crenated Cell Not Reportable 12/01/21 04:33 Elliptocytes Rare 12/01/21 04:33 Acanthocytes (Spur) Not Reportable 12/01/21 04:33 Rouleaux Not Reportable 12/01/21 04:33 Hemoglobin C Crystals Not Reportable 12/01/21 04:33 Schistocytes Not Reportable 12/01/21 04:33 Malaria parasites Not Reportable 12/01/21 04:33 Kvng Bodies Not Reportable 12/01/21 04:33 Hem Pathologist Commnt No 12/01/21 04:33 PT 23.9 Sec. (12.2-14.9) H 11/30/21 15:56 INR 1.87 (0.87-1.13) H 11/30/21 15:56 APTT 43.1 Sec. (24.2-36.6) H 11/30/21 15:56 VBG pH 7.509 (7.320-7.420) H 11/30/21 15:57 Sodium 138 mmol/L (137-145) D 12/01/21 04:33 Potassium 3.1 mmol/L (3.6-5.0) L 12/01/21 04:33 Chloride 105.6 mmol/L (98-107) 12/01/21 04:33 Carbon Dioxide 21 mmol/L (22-30) L 12/01/21 04:33 Anion Gap 15 mmol/L 12/01/21 04:33 BUN 10 mg/dL (7-17) 12/01/21 04:33 Creatinine 0.7 mg/dL (0.6-1.2) 12/01/21 04:33 Estimated GFR > 60 ml/min 12/01/21 04:33 BUN/Creatinine Ratio 14 % 12/01/21 04:33 Glucose 115 mg/dL (65-100) H 12/01/21 04:33 Lactic Acid 1.20 mmol/L (0.7-2.0) 11/30/21 17:23 Calcium 7.4 mg/dL (8.4-10.2) L 12/01/21 04:33 Total Bilirubin 0.40 mg/dL (0.1-1.2) 11/30/21 15:56 AST 16 units/L (5-40) 11/30/21 15:56 ALT 7 units/L (7-56) 11/30/21 15:56 Alkaline Phosphatase 80 units/L (35-129) 11/30/21 15:56 Troponin T 0.119 ng/mL (0.00-0.029) H* 11/30/21 15:56 Total Protein 4.2 g/dL (6.3-8.2) L 11/30/21 15:56 Albumin 2.4 g/dL (3.9-5) L 11/30/21 15:56 Albumin/Globulin Ratio 1.3 % 11/30/21 15:56 Triglycerides 108 mg/dL (2-149) 11/30/21 15:56 Cholesterol 82 mg/dL (50-199) 11/30/21 15:56 LDL Cholesterol Direct 38 mg/dL (50-130) L 11/30/21 15:56 HDL Cholesterol 28 mg/dL (40-59) L 11/30/21 15:56 Cholesterol/HDL Ratio 2.92 % 11/30/21 15:56 TSH 1.870 mlU/mL (0.270-4.200) 11/30/21 15:57 Urine Color Yellow (Yellow) 11/30/21 02:50 Urine Turbidity Clear (Clear) 11/30/21 02:50 Urine pH 6.0 (5.0-7.0) 11/30/21 02:50 Ur Specific [place] 1.005 (1.003-1.030) 11/30/21 02:50 Urine Protein <15 mg/dl mg/dL (Negative) 11/30/21 02:50 Urine Glucose (UA) Neg mg/dL (Negative) 11/30/21 02:50 Urine Ketones Neg mg/dL (Negative) 11/30/21 02:50 Urine Blood Sm (Negative) 11/30/21 02:50 Urine Nitrite Neg (Negative) 11/30/21 02:50 Urine Bilirubin Neg (Negative) 11/30/21 02:50 Urine Urobilinogen < 2.0 mg/dL (<2.0) 11/30/21 02:50 Ur Leukocyte Esterase Neg (Negative) 11/30/21 02:50 Urine WBC (Auto) 2.0 /HPF (0.0-6.0) 11/30/21 02:50 Urine RBC (Auto) 2.0 /HPF (0.0-6.0) 11/30/21 02:50 U Epithel Cells (Auto) 1.0 /HPF (0-13.0) 11/30/21 02:50 Urine Bacteria (Auto) 1+ /HPF (Negative) 11/30/21 02:50 Urine Yeast (Budding) 1+ /HPF 11/30/21 02:50 Blood Type O POSITIVE 11/30/21 17:23 Antibody Screen Negative 11/30/21 17:23 Crossmatch See Detail 11/30/21 17:23 Microbiology: Microbiology 11/30/21 15:56 Peripheral/Venous Blood Culture - Preliminary Culture in Progress 11/30/21 15:56 Peripheral/Venous Blood Culture - Preliminary Culture in Progress Victor/IV: Voiding Method External Female Catheter Active Medications - Current Medications Current Medications: Generic Name Dose Route Start Last Admin Trade Name Freq PRN Reason Stop Dose Admin Acetaminophen 650 mg 11/30/21 19:24 Acetaminophen 325 Mg Tab PO Q4H PRN Pain MILD(1-3)/Fever >100.5/GONZALEZ Docusate Sodium 100 mg 12/01/21 22:00 Docusate Sodium 100 Mg Cap PO BID SRAVAN Hydromorphone HCl 0.5 mg 12/01/21 10:42 12/01/21 16:29 Hydromorphone 1 Mg/1 Ml Inj IV 0.5 mg Q4H PRN Administration Pain , Severe (7-10) NORepinephrine/NS 8 MG-250 ML 8 mg in 250 mls @ 3.75 mls/hr 11/30/21 17:00 12/01/21 16:31 Norepinephrine/Ns 8 Mg-250 Ml (Double Conc) IV 0 mcg/min TITRATE SRAVAN 0 mls/hr Titration Protocol 2 MCG/MIN Cefepime HCl 2 gm in 100 mls @ 200 mls/hr 12/01/21 10:00 12/01/21 10:06 Cefepime/Ns 2 Gm/100 Ml IV 200 mls/hr Q12H SRAVAN Administration Protocol Vancomycin HCl 1 gm in 250 mls @ 167.007 mls/hr 12/01/21 22:00 Vancomycin/Ns 1 Gm/250 Ml IV Q24H SRAVAN Ondansetron HCl 4 mg 11/30/21 19:24 Ondansetron 4 Mg/2 Ml Inj IV Q8H PRN Nausea And Vomiting Oxycodone/Acetaminophen 1 tab 11/30/21 19:24 12/01/21 07:13 Oxycodone /Acetaminophen 5-325mg Tab PO 1 tab Q6H PRN Administration Pain, Moderate (4-6) Sodium Chloride 10 ml 11/30/21 22:00 12/01/21 09:10 Sodium Chloride 0.9% 10 Ml Flush Syringe IV 10 ml BID SRAVAN Administration Sodium Chloride 10 ml 11/30/21 19:24 Sodium Chloride 0.9% 10 Ml Flush Syringe IV PRN PRN LINE FLUSH
[2021-12-01] MEDS: PANTOPRAZOLE 40 MG TAB PO SCH (22:31)
[2021-12-01] MEDS: traZODone 100 MG TAB PO SCH (22:31)
[2021-12-01] MEDS: DOCUSATE SODIUM 100 MG CAP PO SCH (22:31)
[2021-12-01] MEDS: CILOSTAZOL 100 MG TAB PO SCH (22:31)
[2021-12-01] MEDS: GABAPENTIN 100 MG CAP PO SCH (22:31)
[2021-12-01] MEDS: VENLAFAXINE 75 MG TAB PO SCH (22:31)
[2021-12-01] MEDS: VANCOMYCIN/NS 1 GM/250 ML 1 GM/250 ML BAG IV SCH (22:32)
[2021-12-02] MEDS: HYDROmorphone 1 MG/1 ML INJ IV PRN (02:13)
[2021-12-02 06:43] LABS: Hematocrit 24.2 % (30.3-42.9); Hemoglobin 7.9 gm/dl (10.1-14.3); Mean Corpuscular HGB Conc 33 % (30-34); Mean Corpuscular Volume 85 fl (79-97); Platelet Count 305 K/mm3 (140-440); Red Blood Count 2.83 M/mm3 (3.65-5.03)
[2021-12-02 07:09] LABS: Blood Urea Nitrogen 6 mg/dL (7-17); Hemolysis Index 4
[2021-12-02 07:48] LABS: BUN/Creatinine Ratio 12
[2021-12-02] MEDS: CEFEPIME/NS 2 GM/100 ML 2 GM/100 ML BAG IV SCH ×2 (09:53→21:26)
[2021-12-02] MEDS: GABAPENTIN 100 MG CAP PO SCH ×2 (09:53→21:26)
[2021-12-02] MEDS: DOCUSATE SODIUM 100 MG CAP PO SCH ×2 (09:53→21:26)
[2021-12-02] MEDS: oxyCODONE /ACETAMINOPHEN 5-325MG TAB PO PRN ×3 (09:53→22:54)
[2021-12-02] MEDS: PANTOPRAZOLE 40 MG TAB PO SCH (09:53)
[2021-12-02] MEDS: VENLAFAXINE 75 MG TAB PO SCH (10:39)
[2021-12-02] MEDS: CILOSTAZOL 100 MG TAB PO SCH ×2 (10:41→21:26)
--- NOTE | 2021-12-02 11:44 | Progress Note ---
Assessment and Plan 56 y/o female with known PVD, admitted with hypotension, likely from sepsis, possibly related to lower ext. 12/02/21: Will get CT of limb with contrast today. Pain control. IVF's. If bed needed, please move to step down, not floor. 1. Reviewed ID note 2 Continue abx 3. Follow up vascular recs 4. More fluid resuscitation, need to get patient off pressors. 5. Guarded prognosis. CCT 31 minutes. Subjective Date of service: 12/02/21 Interval history: no acute events. Off pressors since yesterday. Pain still present but has pulses. Remainder is negative. Objective - Constitutional Vitals: Vital Signs - 12hr 12/01/21 12/02/21 12/02/21 23:46 00:00 00:16 Temperature 97.5 F L Pulse Rate 96 H 97 H 100 H Pulse Rate [ 86 From Monitor] Respiratory 21 24 26 H Rate Blood Pressure 130/60 127/58 127/58 O2 Sat by Pulse 92 91 89 Oximetry 12/02/21 12/02/21 12/02/21 00:30 00:46 01:00 Temperature Pulse Rate 100 H 100 H 101 H Pulse Rate [ From Monitor] Respiratory 25 H 23 19 Rate Blood Pressure 128/60 128/60 135/65 O2 Sat by Pulse 90 90 91 Oximetry 12/02/21 12/02/21 12/02/21 01:16 01:30 01:46 Temperature Pulse Rate 100 H 101 H 101 H Pulse Rate [ From Monitor] Respiratory 21 19 20 Rate Blood Pressure 135/65 140/65 140/65 O2 Sat by Pulse 90 90 90 Oximetry 12/02/21 12/02/21 12/02/21 02:00 02:16 02:30 Temperature Pulse Rate 105 H 106 H 103 H Pulse Rate [ From Monitor] Respiratory 18 19 22 Rate Blood Pressure 143/65 143/65 130/55 O2 Sat by Pulse 90 89 92 Oximetry 12/02/21 12/02/21 12/02/21 02:46 03:00 03:16 Temperature Pulse Rate 100 H 98 H 96 H Pulse Rate [ From Monitor] Respiratory 23 13 14 Rate Blood Pressure 130/55 105/48 105/48 O2 Sat by Pulse 94 94 95 Oximetry 12/02/21 12/02/21 12/02/21 03:30 03:46 04:00 Temperature 99.3 F Pulse Rate 94 H 92 H 91 H Pulse Rate [ 92 H From Monitor] Respiratory 11 L 11 L 12 Rate Blood Pressure 86/46 86/46 102/54 O2 Sat by Pulse 95 96 96 Oximetry 12/02/21 12/02/21 12/02/21 04:16 04:30 04:46 Temperature Pulse Rate 92 H 95 H 95 H Pulse Rate [ From Monitor] Respiratory 14 16 20 Rate Blood Pressure 102/54 133/70 133/70 O2 Sat by Pulse 92 96 97 Oximetry 12/02/21 12/02/21 12/02/21 05:00 05:16 05:30 Temperature Pulse Rate 93 H 94 H 90 Pulse Rate [ From Monitor] Respiratory 15 13 12 Rate Blood Pressure 118/55 118/55 114/53 O2 Sat by Pulse 95 96 96 Oximetry 12/02/21 12/02/21 12/02/21 05:46 06:00 06:16 Temperature Pulse Rate 91 H 91 H 91 H Pulse Rate [ From Monitor] Respiratory 11 L 14 15 Rate Blood Pressure 114/53 106/53 106/53 O2 Sat by Pulse 97 95 97 Oximetry 12/02/21 12/02/21 12/02/21 06:30 06:46 07:00 Temperature Pulse Rate 92 H 95 H 97 H Pulse Rate [ From Monitor] Respiratory 20 15 21 Rate Blood Pressure 121/59 121/59 121/59 O2 Sat by Pulse 96 92 Oximetry 12/02/21 12/02/21 12/02/21 07:16 07:30 07:46 Temperature Pulse Rate 96 H 94 H 94 H Pulse Rate [ From Monitor] Respiratory 16 13 13 Rate Blood Pressure 138/64 134/59 134/59 O2 Sat by Pulse 93 92 91 Oximetry 12/02/21 12/02/21 12/02/21 08:00 08:16 08:30 Temperature 101.2 F H Pulse Rate 94 H 102 H 99 H Pulse Rate [ 92 H From Monitor] Respiratory 13 19 17 Rate Blood Pressure 116/54 116/54 125/60 O2 Sat by Pulse 92 91 93 Oximetry 12/02/21 12/02/21 12/02/21 08:46 09:00 09:16 Temperature Pulse Rate 93 H 94 H 92 H Pulse Rate [ From Monitor] Respiratory 16 17 12 Rate Blood Pressure 125/60 117/57 117/57 O2 Sat by Pulse 92 93 92 Oximetry 12/02/21 12/02/21 12/02/21 09:30 09:46 10:00 Temperature Pulse Rate 99 H 96 H 101 H Pulse Rate [ From Monitor] Respiratory 17 16 21 Rate Blood Pressure 126/60 126/60 133/55 O2 Sat by Pulse 92 93 93 Oximetry - Labs CBC & Chem 7: 12/02/21 06:02 12/02/21 06:02 Labs: Abnormal lab results 12/02/21 12/02/21 Range/Units 06:02 06:02 RBC 2.83 L (3.65-5.03) M/mm3 Hgb 7.9 L (10.1-14.3) gm/dl Hct 24.2 L (30.3-42.9) % RDW 16.0 H (13.2-15.2) % Sodium 135 L (137-145) mmol/L BUN 6 L (7-17) mg/dL Creatinine 0.5 L (0.6-1.2) mg/dL Calcium 8.0 L (8.4-10.2) mg/dL Phosphorus 1.90 L (2.5-4.5) mg/dL Magnesium 1.20 L (1.7-2.3) mg/dL Medications & Allergies - Medications Allergies/Adverse Reactions: Allergies No Known Allergies Allergy (Verified 10/20/21 09:17) Home Medications: Home Medications Medication Instructions Recorded Confirmed Last Taken Type Apixaban [Eliquis] 2.5 mg PO Q12HR #60 tab 09/01/21 10/10/21 Unknown Rx AtorvaSTATin [Lipitor] 40 mg PO DAILY 09/01/21 10/10/21 08/31/21 History 1 tab Clopidogrel [Plavix] 75 mg PO QDAY #90 tablet 09/01/21 10/10/21 Unknown Rx Gabapentin 100 mg PO BID 09/01/21 10/10/21 08/31/21 History 2 tabs Pantoprazole [Protonix] 40 mg PO QDAY #90 tablet 09/01/21 10/10/21 Unknown Rx amLODIPine 5 mg PO DAILY 09/01/21 10/10/21 08/31/21 History 1 tab carvediloL [Coreg] 25 mg PO BID 09/01/21 10/10/21 08/31/21 History 2 tabs cilostazoL [Pletal] 50 mg PO BID 09/01/21 10/10/21 08/31/21 History 2 tabs traZODone [Desyrel] 100 mg PO QHS 09/01/21 10/10/21 08/31/21 History 1 tab Venlafaxine [Effexor] 75 mg PO DAILY 11/02/21 11/02/21 Unknown History Active Medications: Generic Name Dose Route Start Last Admin Trade Name Freq PRN Reason Stop Dose Admin Acetaminophen 650 mg 11/30/21 19:24 Acetaminophen 325 Mg Tab PO Q4H PRN Pain MILD(1-3)/Fever >100.5/GONZALEZ Cilostazol 50 mg 12/01/21 22:00 12/02/21 10:41 Cilostazol 100 Mg Tab PO 50 mg BID SRAVAN Administration Docusate Sodium 100 mg 12/01/21 22:00 12/02/21 09:53 Docusate Sodium 100 Mg Cap PO 100 mg BID SRAVAN Administration Gabapentin 100 mg 12/01/21 22:00 12/02/21 09:53 Gabapentin 100 Mg Cap PO 100 mg BID SRAVAN Administration Hydromorphone HCl 0.5 mg 12/01/21 10:42 12/02/21 02:13 Hydromorphone 1 Mg/1 Ml Inj IV 0.5 mg Q4H PRN Administration Pain , Severe (7-10) NORepinephrine/NS 8 MG-250 ML 8 mg in 250 mls @ 3.75 mls/hr 11/30/21 17:00 12/01/21 16:31 Norepinephrine/Ns 8 Mg-250 Ml (Double Conc) IV 0 mcg/min TITRATE SRAVAN 0 mls/hr Titration Protocol 2 MCG/MIN Cefepime HCl 2 gm in 100 mls @ 200 mls/hr 12/01/21 10:00 12/02/21 09:53 Cefepime/Ns 2 Gm/100 Ml IV 200 mls/hr Q12H SRAVAN Administration Protocol Vancomycin HCl 1 gm in 250 mls @ 167.007 mls/hr 12/01/21 22:00 12/01/21 22:32 Vancomycin/Ns 1 Gm/250 Ml IV 167.007 mls/hr Q24H SRAVAN Administration Ondansetron HCl 4 mg 11/30/21 19:24 Ondansetron 4 Mg/2 Ml Inj IV Q8H PRN Nausea And Vomiting Oxycodone/Acetaminophen 1 tab 11/30/21 19:24 12/02/21 09:53 Oxycodone /Acetaminophen 5-325mg Tab PO 1 tab Q6H PRN Administration Pain, Moderate (4-6) Pantoprazole Sodium 40 mg 12/01/21 20:00 12/02/21 09:53 Pantoprazole 40 Mg Tab PO 40 mg QDAY SRAVAN Administration Sodium Chloride 10 ml 11/30/21 22:00 12/02/21 09:55 Sodium Chloride 0.9% 10 Ml Flush Syringe IV 10 ml BID SRAVAN Administration Sodium Chloride 10 ml 11/30/21 19:24 Sodium Chloride 0.9% 10 Ml Flush Syringe IV PRN PRN LINE FLUSH Trazodone HCl 100 mg 12/01/21 22:00 12/01/21 22:31 Trazodone 100 Mg Tab PO 100 mg QHS SRAVAN Administration Venlafaxine HCl 75 mg 12/01/21 20:00 12/02/21 10:39 Venlafaxine 75 Mg Tab PO 75 mg DAILY SRAVAN Administration HEART Score - HEART Score Troponin: Troponin T 0.119 ng/mL (0.00-0.029) H* 11/30/21 15:56
[2021-12-02] MEDS ORDERED: SODIUM PHOSPHATE 45 MMOL in SODIUM CHLORIDE 0.9% 500 ML 500 ML IV ONE (12:52)
[2021-12-02] MEDS ORDERED: MAGNESIUM SULFATE 4 GM/100 ML BAG IV ONE (12:52)
--- NOTE | 2021-12-02 14:37 | Progress Note ---
Assessment and Plan Patient with resolution of hypotension Levophed weaned off Had a CTA of her left leg today and I reviewed the films. Air is seen within t he left femoral to popliteal artery bypass graft as well as in fluid collections along the graft. The patient will require excision of the graft, coverage of her common femoral artery with a sartorious muscle flap, and closure of the distal popliteal artery with a vein patch. The proximal anastamosis is sewn to a vein and can be closed, primarily, after excising the graft from the artery. I will perform this either Saturday or Saturday. Subjective Date of service: 12/02/21 Interval history: No complaints. Weaned off of Levophed yesterday. Objective - Constitutional Vitals: Vital Signs - 12hr 12/02/21 12/02/21 12/02/21 02:46 03:00 03:16 Temperature Pulse Rate 100 H 98 H 96 H Pulse Rate [ From Monitor] Respiratory 23 13 14 Rate Blood Pressure 130/55 105/48 105/48 O2 Sat by Pulse 94 94 95 Oximetry 12/02/21 12/02/21 12/02/21 03:30 03:46 04:00 Temperature 99.3 F Pulse Rate 94 H 92 H 91 H Pulse Rate [ 92 H From Monitor] Respiratory 11 L 11 L 12 Rate Blood Pressure 86/46 86/46 102/54 O2 Sat by Pulse 95 96 96 Oximetry 12/02/21 12/02/21 12/02/21 04:16 04:30 04:46 Temperature Pulse Rate 92 H 95 H 95 H Pulse Rate [ From Monitor] Respiratory 14 16 20 Rate Blood Pressure 102/54 133/70 133/70 O2 Sat by Pulse 92 96 97 Oximetry 12/02/21 12/02/21 12/02/21 05:00 05:16 05:30 Temperature Pulse Rate 93 H 94 H 90 Pulse Rate [ From Monitor] Respiratory 15 13 12 Rate Blood Pressure 118/55 118/55 114/53 O2 Sat by Pulse 95 96 96 Oximetry 12/02/21 12/02/21 12/02/21 05:46 06:00 06:16 Temperature Pulse Rate 91 H 91 H 91 H Pulse Rate [ From Monitor] Respiratory 11 L 14 15 Rate Blood Pressure 114/53 106/53 106/53 O2 Sat by Pulse 97 95 97 Oximetry 12/02/21 12/02/21 12/02/21 06:30 06:46 07:00 Temperature Pulse Rate 92 H 95 H 97 H Pulse Rate [ From Monitor] Respiratory 20 15 21 Rate Blood Pressure 121/59 121/59 121/59 O2 Sat by Pulse 96 92 Oximetry 12/02/21 12/02/21 12/02/21 07:16 07:30 07:46 Temperature Pulse Rate 96 H 94 H 94 H Pulse Rate [ From Monitor] Respiratory 16 13 13 Rate Blood Pressure 138/64 134/59 134/59 O2 Sat by Pulse 93 92 91 Oximetry 12/02/21 12/02/21 12/02/21 08:00 08:16 08:30 Temperature 101.2 F H Pulse Rate 94 H 102 H 99 H Pulse Rate [ 92 H From Monitor] Respiratory 13 19 17 Rate Blood Pressure 116/54 116/54 125/60 O2 Sat by Pulse 92 91 93 Oximetry 12/02/21 12/02/21 12/02/21 08:46 09:00 09:16 Temperature Pulse Rate 93 H 94 H 92 H Pulse Rate [ From Monitor] Respiratory 16 17 12 Rate Blood Pressure 125/60 117/57 117/57 O2 Sat by Pulse 92 93 92 Oximetry 12/02/21 12/02/21 12/02/21 09:30 09:46 10:00 Temperature Pulse Rate 99 H 96 H 101 H Pulse Rate [ From Monitor] Respiratory 17 16 21 Rate Blood Pressure 126/60 126/60 133/55 O2 Sat by Pulse 92 93 93 Oximetry General appearance: Present: no acute distress - Respiratory Respiratory effort: normal - Cardiovascular Rhythm: regular Extremities: normal temperature (bilateral feet are warm), abnormal (left leg edema with some erythema of the left calf) Extremity abnormal: pulses diminished (non palpable pedal pulses with doppler DP bilaterally) - Gastrointestinal General gastrointestinal: Present: soft - Labs CBC & Chem 7: 12/02/21 06:02 12/02/21 06:02 Labs: Abnormal lab results 12/02/21 12/02/21 Range/Units 06:02 06:02 RBC 2.83 L (3.65-5.03) M/mm3 Hgb 7.9 L (10.1-14.3) gm/dl Hct 24.2 L (30.3-42.9) % RDW 16.0 H (13.2-15.2) % Sodium 135 L (137-145) mmol/L BUN 6 L (7-17) mg/dL Creatinine 0.5 L (0.6-1.2) mg/dL Calcium 8.0 L (8.4-10.2) mg/dL Phosphorus 1.90 L (2.5-4.5) mg/dL Magnesium 1.20 L (1.7-2.3) mg/dL Medications & Allergies - Medications Allergies/Adverse Reactions: Allergies No Known Allergies Allergy (Verified 10/20/21 09:17) Home Medications: Home Medications Medication Instructions Recorded Confirmed Last Taken Type Apixaban [Eliquis] 2.5 mg PO Q12HR #60 tab 09/01/21 10/10/21 Unknown Rx AtorvaSTATin [Lipitor] 40 mg PO DAILY 09/01/21 10/10/21 08/31/21 History 1 tab Clopidogrel [Plavix] 75 mg PO QDAY #90 tablet 09/01/21 10/10/21 Unknown Rx Gabapentin 100 mg PO BID 09/01/21 10/10/21 08/31/21 History 2 tabs Pantoprazole [Protonix] 40 mg PO QDAY #90 tablet 09/01/21 10/10/21 Unknown Rx amLODIPine 5 mg PO DAILY 09/01/21 10/10/21 08/31/21 History 1 tab carvediloL [Coreg] 25 mg PO BID 09/01/21 10/10/21 08/31/21 History 2 tabs cilostazoL [Pletal] 50 mg PO BID 09/01/21 10/10/21 08/31/21 History 2 tabs traZODone [Desyrel] 100 mg PO QHS 09/01/21 10/10/21 08/31/21 History 1 tab Venlafaxine [Effexor] 75 mg PO DAILY 11/02/21 11/02/21 Unknown History Active Medications: Generic Name Dose Route Start Last Admin Trade Name Freq PRN Reason Stop Dose Admin Acetaminophen 650 mg 11/30/21 19:24 Acetaminophen 325 Mg Tab PO Q4H PRN Pain MILD(1-3)/Fever >100.5/GONZALEZ Cilostazol 50 mg 12/01/21 22:00 12/02/21 10:41 Cilostazol 100 Mg Tab PO 50 mg BID SRAVAN Administration Docusate Sodium 100 mg 12/01/21 22:00 12/02/21 09:53 Docusate Sodium 100 Mg Cap PO 100 mg BID SRAVAN Administration Gabapentin 100 mg 12/01/21 22:00 12/02/21 09:53 Gabapentin 100 Mg Cap PO 100 mg BID SRAVAN Administration Hydromorphone HCl 0.5 mg 12/01/21 10:42 12/02/21 02:13 Hydromorphone 1 Mg/1 Ml Inj IV 0.5 mg Q4H PRN Administration Pain , Severe (7-10) NORepinephrine/NS 8 MG-250 ML 8 mg in 250 mls @ 3.75 mls/hr 11/30/21 17:00 12/01/21 16:31 Norepinephrine/Ns 8 Mg-250 Ml (Double Conc) IV 0 mcg/min TITRATE SRAVAN 0 mls/hr Titration Protocol 2 MCG/MIN Cefepime HCl 2 gm in 100 mls @ 200 mls/hr 12/01/21 10:00 12/02/21 09:53 Cefepime/Ns 2 Gm/100 Ml IV 200 mls/hr Q12H SRAVAN Administration Protocol Vancomycin HCl 1 gm in 250 mls @ 167.007 mls/hr 12/01/21 22:00 12/01/21 22:32 Vancomycin/Ns 1 Gm/250 Ml IV 167.007 mls/hr Q24H SRAVAN Administration Magnesium Sulfate 4 gm in 100 mls @ 25 mls/hr 12/02/21 12:52 Magnesium Sulfate 4gm/100ml IV 12/02/21 16:51 ONCE ONE Sodium Phosphate 45 mmol/ 515 mls @ 84 mls/hr 12/02/21 12:52 Sodium Chloride IV 12/02/21 18:59 ONCE ONE Ondansetron HCl 4 mg 11/30/21 19:24 Ondansetron 4 Mg/2 Ml Inj IV Q8H PRN Nausea And Vomiting Oxycodone/Acetaminophen 2 tab 12/02/21 11:44 Oxycodone /Acetaminophen 5-325mg Tab PO Q8H PRN Pain, Moderate (4-6) Pantoprazole Sodium 40 mg 12/01/21 20:00 12/02/21 09:53 Pantoprazole 40 Mg Tab PO 40 mg QDAY SRAVAN Administration Sodium Chloride 10 ml 11/30/21 22:00 12/02/21 09:55 Sodium Chloride 0.9% 10 Ml Flush Syringe IV 10 ml BID SRAVAN Administration Sodium Chloride 10 ml 11/30/21 19:24 Sodium Chloride 0.9% 10 Ml Flush Syringe IV PRN PRN LINE FLUSH Trazodone HCl 100 mg 12/01/21 22:00 12/01/21 22:31 Trazodone 100 Mg Tab PO 100 mg QHS SRAVAN Administration Venlafaxine HCl 75 mg 12/01/21 20:00 12/02/21 10:39 Venlafaxine 75 Mg Tab PO 75 mg DAILY SRAVAN Administration HEART Score - HEART Score Troponin: Troponin T 0.119 ng/mL (0.00-0.029) H* 11/30/21 15:56
--- NOTE | 2021-12-02 15:40 | Cat Scan Report ---
CTA PELVIS, AND LOWER EXTREMITIES WITH CONTRAST INDICATION / CLINICAL INFORMATION: eval of left leg swelling. TECHNIQUE: Axial CT images were obtained through the pelvis and lower extremities after injection of 100 cc of Omnipaque 350 IV contrast. 3 plane MIP / 3D reconstructions were produced. All CT scans at this location are performed using CT dose reduction for ALARA by means of automated exposure control. COMPARISON: None available. FINDINGS: CTA PELVIS: RIGHT: - Common Iliac Artery: There is moderate calcific plaque without hemodynamically significant stenosis . - Internal Iliac Artery: There is severe plaque with occlusion or near occlusion proximally. - External Iliac Artery: There is moderate calcific plaque. There is a stent in the external iliac ar liam which is patent. There is a stenosis at the distal end of the stent which appears to result in g reater than 50% diameter reduction. LEFT: - Common Iliac Artery: There is moderate plaque without hemodynamically significant stenosis. - Internal Iliac Artery: There is multifocal severe plaque. - External Iliac Artery: There is soft plaque in the dissection in the external iliac artery there is a stenosis which results in 50-60% diameter reduction in the proximal external iliac artery. The dis section terminates in the distal vessel. CTA LOWER EXTREMITIES: RIGHT LOWER EXTREMITY: - Common Femoral Artery: There is moderate plaque with an approximate 40% diameter reduction. - Superficial Femoral Artery: There is multifocal disease without hemodynamically significant stenosi s identified - Profunda Femoral Artery: Not completely imaged. The imaged portions are patent there is some calcif ic plaque proximally. - Popliteal Artery: There is calcific plaque with less than 50% diameter reduction. - Anterior Tibial Artery: There are calcific plaques noted in the proximal vessel with greater than 5 0% diameter reduction. There is some scattered plaque in the proximal vessel. The anterior tibial art priyanka is patent to the ankle. - Tibioperoneal Trunk: There is calcific plaque with stenosis that appears to be greater than 50%. - Posterior Tibial Artery: There is calcific plaque proximally with greater than 50% diameter reducti on. There is relatively prominent calcific plaque at the ankle. - Peroneal Artery: There is mild scattered plaque. The vessel is patent to the ankle. - Ankle runoff: Three vessel. There is disease noted in all 3 vessels. LEFT LOWER EXTREMITY: - Common Femoral Artery: The vessels patent. There is aneurysmal dilatation of the distal aspect. - Superficial Femoral Artery: There is stent noted throughout the vessel which is patent. There is a femoral to popliteal graft which contains a stent. The graft is occluded. There appears to be skin wo und which is in close proximity to the graft in the proximal thigh. There is air within the graft in the proximal thigh suggesting that this is infected. There is a small amount of gas in the soft tissu es adjacent to the stent in the mid thigh and distal thigh. - Profunda Femoral Artery: No significant abnormality. - Popliteal Artery: There is mild calcific plaque with a less than 50% diameter reduction. - Anterior Tibial Artery: There is mild plaque proximally. The vessel is patent to the ankle. - Tibioperoneal Trunk: There is calcific plaque with greater than 50% diameter reduction stenosis. - Posterior Tibial Artery: No significant abnormality. - Peroneal Artery: No significant abnormality. - Ankle runoff: Three vessel. NONTARGET STRUCTURES: PELVIS:There are no abnormal fluid collections. There is sigmoid diverticulosis. There is subcutaneou s edema LOWER EXTREMITIES:There is subcutaneous edema throughout the left leg. There is a small amount of sof t tissue gas as described above adjacent to the femoral to popliteal graft. There is some gas noted w ithin the femoral to popliteal graft. The graft is occluded. SKELETAL: No acute abnormality. ADDITIONAL FINDINGS: None. IMPRESSION: 1. Femoral to popliteal graft on the left is occluded. There is scattered air within the graft and in the soft tissue adjacent to the graft. 2. There is soft tissue edema throughout the left leg. 3. There are stents throughout the ak chin left superficial femoral artery. These are patent. 4. There is additional vascular disease described above by vessel. Signer Name: Yobani Echeverria MD Signed: 12/02/2021 3:36 PM Workstation Name: [id number]
--- NOTE | 2021-12-02 16:27 | Progress Note ---
<GALE SOLIZ - Last Filed: 12/02/21 16:21> Assessment and Plan Assessment and plan: This is a 56 year old female with severe PVD, CAD, HTN, HLD, Anemia Neuro: h/o EtOH abuse, neuropathy -Reorientation as needed -Maintain sleep-wake cycle -As needed analgesia Cardiac: h/o HTN, HLD, CAD -Blood pressure monitoring per protocol -s/p vasopressor support with levophed Respiratory: h/o nicotine abuse -CCM consulted, appreciate recommendations -Pulmonary hygiene -SPO2 monitoring -Supplemental oxygen as needed GI: Moderate Protein calorie malnutrition -Regular diet with nutritional supplementation -PPI -BR: colace : Acute kidney injury secondary to vasomotor nephropathy, Hypophosphatemia, hypomagnesemia -Nephrology consulted, appreciate recommendations -Strict intake and output -Renally dose medications -Avoid nephrotoxic medications -Replete magnesium and phosphate -Trend BMP ID: Septic shock (POA), leukocytosis -Presented with leukocytosis, acute kidney injury, purulent drainage from leg wounds -Infectious disease consulted, appreciate recommendations -Antibiotic therapy with cefepime and vancomycin -WOCN consulted for wound care -f/u blood culture -Monitor WBC and temperature curve Endo: NAD -Avoid hypoglycemia Vascular/Heme: Acute Anemia, Severe PVD s/p left femoral to below-knee popliteal artery bypass with fasciotomy, right lower extremity vascularization -Vascular surgery consulted, appreciate recommendations -Admit h/h 6.2/19.2 -2 units PRBC -CTA BLE shows air within the left femoral to popliteal artery bypass graft as well as in fluid collections along the graft. -Per vascular surgery: the patient will require excision of the graft, coverage of her common femoral artery with a sartorious muscle flap, and closure of the distal popliteal artery with a vein patch. The proximal anastamosis is sewn to a vein and can be closed, primarily, after excising the graft from the artery. This can be performed on Saturday or Saturday. -Trend CBC -Transfuse hemoglobin less than 7 The high probability of a clinically significant, sudden or life threatening deterioration of the [multi] system(s) required my full and direct attention, intervention and personal management. The aggregate critical care time was [60] minutes. This time is in addition to time spent performing reported procedures but includes the following: [x] Data Review and interpretation [x] Patient assessment and monitoring of vital signs [x] Documentation [x] Medication orders and management Disposition Plan: icu Total Time Spent with Patient (Minutes): 60 History Interval history: This is a 56-year-old female with severe PVD, CAD, HTN, HLD, anemia, EtOH and tobacco abuse who is s/p left femoral to below the knee popliteal artery bypass complicated by compartment syndrome s/p fasciotomy and right leg revasc ularization who was discharged to SNF after almost 3 week stay via EMS for altered mental status and was hypoentive in ED despite fluid resuscitation was eventually started on Levophed with a placement of central line. Patient was also anemic with a hemoglobin of 6.2 and 1 unit PRBC was transfused. She also had leukocytosis, acute kidney injury, elevated troponin and purulent drainage from wounds. Patient was admitted to the hospital service with consult to vascular surgery, ID and CCM with Sepsis. Hospital course to date: 12/01: Additional LR boluses, KCL 40 PO, prn diludid given for pain. Wean levophed as tolerated. 12/02: Adjustment to pain regimen, CTA pelvis and lower extremities with contrast obtained. Phosphorus and magnesium repleted Hospitalist Physical - Physical exam Narrative exam: Physical Exam: VITAL SIGNS: Reviewed. GENERAL: The patient appears cachectic, Vital signs as documented. Obese HEAD: No signs of head trauma. EYES: Pupils are equal. Extraocular motions intact. EARS: Hearing grossly intact. MOUTH: Oropharynx is normal. NECK: No adenopathy, no JVD. CHEST: Chest with clear breath sounds bilaterally. No wheezes, rales, or rhonchi. CARDIAC: Regular rate and rhythm. S1 and S2, without murmurs, gallops, or rubs. VASCULAR: No Edema. Peripheral pulses papable but weak in BLE ABDOMEN: Soft, non tender and non distended. No rebound or guarding, and no masses palpated. Bowel Sounds normal. MUSCULOSKELETAL: Good range of motion of all major joints. Extremities without clubbing, cyanosis or edema. NEUROLOGIC EXAM: Alert and oriented x 4. no focal sensory or strength deficits. PSYCHIATRIC: Mood normal. SKIN: detail exam as documented in skin assessment - Constitutional Vitals: Temp Pulse Resp BP Pulse Ox 99.1 F 79 11 L 90/47 93 12/02/21 12:00 12/02/21 15:00 12/02/21 15:00 12/02/21 15:00 12/02/21 15:00 General appearance: Present: no acute distress HEART Score - HEART Score Troponin: Troponin T 0.119 ng/mL (0.00-0.029) H* 11/30/21 15:56 Results - Labs CBC & Chem 7: 12/02/21 06:02 12/02/21 06:02 Labs: Laboratory Last Values WBC 7.5 K/mm3 (4.5-11.0) 12/02/21 06:02 RBC 2.83 M/mm3 (3.65-5.03) L 12/02/21 06:02 Hgb 7.9 gm/dl (10.1-14.3) L 12/02/21 06:02 Hct 24.2 % (30.3-42.9) L 12/02/21 06:02 MCV 85 fl (79-97) 12/02/21 06:02 MCH 28 pg (28-32) 12/02/21 06:02 MCHC 33 % (30-34) 12/02/21 06:02 RDW 16.0 % (13.2-15.2) H 12/02/21 06:02 Plt Count 305 K/mm3 (140-440) 12/02/21 06:02 Add Manual Diff Complete 12/01/21 04:33 Total Counted 100 12/01/21 04:33 Seg Neutrophils % Pilot Control Operator Helper 11/30/21 15:56 Seg Neuts % (Manual) 82.0 % (40.0-70.0) H 12/01/21 04:33 Band Neutrophils % 8.0 % 12/01/21 04:33 Lymphocytes % (Manual) 5.0 % (13.4-35.0) L 12/01/21 04:33 Reactive Lymphs % (Man) 0 % 12/01/21 04:33 Monocytes % (Manual) 4.0 % (0.0-7.3) 12/01/21 04:33 Eosinophils % (Manual) 0 % (0.0-4.3) 12/01/21 04:33 Basophils % (Manual) 0 % (0.0-1.8) 12/01/21 04:33 Metamyelocytes % 1.0 % 12/01/21 04:33 Myelocytes % 0 % 12/01/21 04:33 Promyelocytes % 0 % 12/01/21 04:33 Blast Cells % 0 % 12/01/21 04:33 Nucleated RBC % Not Reportable 12/01/21 04:33 Seg Neutrophils # Man 17.0 K/mm3 (1.8-7.7) H 12/01/21 04:33 Band Neutrophils # 1.7 K/mm3 12/01/21 04:33 Lymphocytes # (Manual) 1.0 K/mm3 (1.2-5.4) L 12/01/21 04:33 Abs React Lymphs (Man) 0.0 K/mm3 12/01/21 04:33 Monocytes # (Manual) 0.8 K/mm3 (0.0-0.8) 12/01/21 04:33 Eosinophils # (Manual) 0.0 K/mm3 (0.0-0.4) 12/01/21 04:33 Basophils # (Manual) 0.0 K/mm3 (0.0-0.1) 12/01/21 04:33 Metamyelocytes # 0.2 K/mm3 12/01/21 04:33 Myelocytes # 0.0 K/mm3 12/01/21 04:33 Promyelocytes # 0.0 K/mm3 12/01/21 04:33 Blast Cells # 0.0 K/mm3 12/01/21 04:33 WBC Morphology Not Reportable 12/01/21 04:33 Hypersegmented Neuts Not Reportable 12/01/21 04:33 Hyposegmented Neuts Not Reportable 12/01/21 04:33 Hypogranular Neuts Not Reportable 12/01/21 04:33 Smudge Cells Not Reportable 12/01/21 04:33 Toxic Granulation Not Reportable 12/01/21 04:33 Toxic Vacuolation Not Reportable 12/01/21 04:33 Dohle Bodies Not Reportable 12/01/21 04:33 Pelger-Huet Anomaly Not Reportable 12/01/21 04:33 Mary Rods Not Reportable 12/01/21 04:33 Platelet Estimate Consistent w auto 12/01/21 04:33 Clumped Platelets Not Reportable 12/01/21 04:33 Plt Clumps, EDTA Not Reportable 12/01/21 04:33 Large Platelets Not Reportable 12/01/21 04:33 Giant Platelets Not Reportable 12/01/21 04:33 Platelet Satelliting Not Reportable 12/01/21 04:33 Plt Morphology Comment Not Reportable 12/01/21 04:33 RBC Morphology Not Reportable 12/01/21 04:33 Dimorphic RBCs Not Reportable 12/01/21 04:33 Polychromasia Not Reportable 12/01/21 04:33 Hypochromasia 2+ 12/01/21 04:33 Poikilocytosis Few 12/01/21 04:33 Anisocytosis 1+ 12/01/21 04:33 Microcytosis 1+ 12/01/21 04:33 Macrocytosis Not Reportable 12/01/21 04:33 Spherocytes Not Reportable 12/01/21 04:33 Pappenheimer Bodies Not Reportable 12/01/21 04:33 Sickle Cells Not Reportable 12/01/21 04:33 Target Cells Not Reportable 12/01/21 04:33 Tear Drop Cells Not Reportable 12/01/21 04:33 Ovalocytes Few 12/01/21 04:33 Helmet Cells Not Reportable 12/01/21 04:33 [place] Bodies Not Reportable 12/01/21 04:33 Elmo Rings Not Reportable 12/01/21 04:33 Syeda Cells Not Reportable 12/01/21 04:33 Bite Cells Not Reportable 12/01/21 04:33 Crenated Cell Not Reportable 12/01/21 04:33 Elliptocytes Rare 12/01/21 04:33 Acanthocytes (Spur) Not Reportable 12/01/21 04:33 Rouleaux Not Reportable 12/01/21 04:33 Hemoglobin C Crystals Not Reportable 12/01/21 04:33 Schistocytes Not Reportable 12/01/21 04:33 Malaria parasites Not Reportable 12/01/21 04:33 Kvng Bodies Not Reportable 12/01/21 04:33 Hem Pathologist Commnt No 12/01/21 04:33 PT 23.9 Sec. (12.2-14.9) H 11/30/21 15:56 INR 1.87 (0.87-1.13) H 11/30/21 15:56 APTT 43.1 Sec. (24.2-36.6) H 11/30/21 15:56 VBG pH 7.509 (7.320-7.420) H 11/30/21 15:57 Sodium 135 mmol/L (137-145) L 12/02/21 06:02 Potassium 4.1 mmol/L (3.6-5.0) D 12/02/21 06:02 Chloride 104.9 mmol/L (98-107) 12/02/21 06:02 Carbon Dioxide 22 mmol/L (22-30) 12/02/21 06:02 Anion Gap 12 mmol/L 12/02/21 06:02 BUN 6 mg/dL (7-17) L 12/02/21 06:02 Creatinine 0.5 mg/dL (0.6-1.2) L 12/02/21 06:02 Estimated GFR > 60 ml/min 12/02/21 06:02 BUN/Creatinine Ratio 12 % 12/02/21 06:02 Glucose 94 mg/dL (65-100) 12/02/21 06:02 Lactic Acid 1.20 mmol/L (0.7-2.0) 11/30/21 17:23 Calcium 8.0 mg/dL (8.4-10.2) L 12/02/21 06:02 Phosphorus 1.90 mg/dL (2.5-4.5) L 12/02/21 06:02 Magnesium 1.20 mg/dL (1.7-2.3) L 12/02/21 06:02 Total Bilirubin 0.40 mg/dL (0.1-1.2) 11/30/21 15:56 AST 16 units/L (5-40) 11/30/21 15:56 ALT 7 units/L (7-56) 11/30/21 15:56 Alkaline Phosphatase 80 units/L (35-129) 11/30/21 15:56 Troponin T 0.119 ng/mL (0.00-0.029) H* 11/30/21 15:56 Total Protein 4.2 g/dL (6.3-8.2) L 11/30/21 15:56 Albumin 2.4 g/dL (3.9-5) L 11/30/21 15:56 Albumin/Globulin Ratio 1.3 % 11/30/21 15:56 Triglycerides 108 mg/dL (2-149) 11/30/21 15:56 Cholesterol 82 mg/dL (50-199) 11/30/21 15:56 LDL Cholesterol Direct 38 mg/dL (50-130) L 11/30/21 15:56 HDL Cholesterol 28 mg/dL (40-59) L 11/30/21 15:56 Cholesterol/HDL Ratio 2.92 % 11/30/21 15:56 TSH 1.870 mlU/mL (0.270-4.200) 11/30/21 15:57 Urine Color Yellow (Yellow) 11/30/21 02:50 Urine Turbidity Clear (Clear) 11/30/21 02:50 Urine pH 6.0 (5.0-7.0) 11/30/21 02:50 Ur Specific [place] 1.005 (1.003-1.030) 11/30/21 02:50 Urine Protein <15 mg/dl mg/dL (Negative) 11/30/21 02:50 Urine Glucose (UA) Neg mg/dL (Negative) 11/30/21 02:50 Urine Ketones Neg mg/dL (Negative) 11/30/21 02:50 Urine Blood Sm (Negative) 11/30/21 02:50 Urine Nitrite Neg (Negative) 11/30/21 02:50 Urine Bilirubin Neg (Negative) 11/30/21 02:50 Urine Urobilinogen < 2.0 mg/dL (<2.0) 11/30/21 02:50 Ur Leukocyte Esterase Neg (Negative) 11/30/21 02:50 Urine WBC (Auto) 2.0 /HPF (0.0-6.0) 11/30/21 02:50 Urine RBC (Auto) 2.0 /HPF (0.0-6.0) 11/30/21 02:50 U Epithel Cells (Auto) 1.0 /HPF (0-13.0) 11/30/21 02:50 Urine Bacteria (Auto) 1+ /HPF (Negative) 11/30/21 02:50 Urine Yeast (Budding) 1+ /HPF 11/30/21 02:50 Blood Type O POSITIVE 11/30/21 17:23 Antibody Screen Negative 11/30/21 17:23 Crossmatch See Detail 11/30/21 17:23 Microbiology: Microbiology 11/30/21 15:56 Peripheral/Venous Blood Culture - Preliminary NO GROWTH AFTER 24 HOURS 11/30/21 15:56 Peripheral/Venous Blood Culture - Preliminary NO GROWTH AFTER 24 HOURS Victor/IV: Voiding Method External Female Catheter Active Medications - Current Medications Current Medications: Generic Name Dose Route Start Last Admin Trade Name Freq PRN Reason Stop Dose Admin Acetaminophen 650 mg 11/30/21 19:24 Acetaminophen 325 Mg Tab PO Q4H PRN Pain MILD(1-3)/Fever >100.5/GONZALEZ Cilostazol 50 mg 12/01/21 22:00 12/02/21 10:41 Cilostazol 100 Mg Tab PO 50 mg BID SRAVAN Administration Docusate Sodium 100 mg 12/01/21 22:00 12/02/21 09:53 Docusate Sodium 100 Mg Cap PO 100 mg BID SRAVAN Administration Gabapentin 100 mg 12/01/21 22:00 12/02/21 09:53 Gabapentin 100 Mg Cap PO 100 mg BID SRAVAN Administration Hydromorphone HCl 0.5 mg 12/01/21 10:42 12/02/21 02:13 Hydromorphone 1 Mg/1 Ml Inj IV 0.5 mg Q4H PRN Administration Pain , Severe (7-10) NORepinephrine/NS 8 MG-250 ML 8 mg in 250 mls @ 3.75 mls/hr 11/30/21 17:00 12/01/21 16:31 Norepinephrine/Ns 8 Mg-250 Ml (Double Conc) IV 0 mcg/min TITRATE SRAVAN 0 mls/hr Titration Protocol 2 MCG/MIN Cefepime HCl 2 gm in 100 mls @ 200 mls/hr 12/01/21 10:00 12/02/21 09:53 Cefepime/Ns 2 Gm/100 Ml IV 200 mls/hr Q12H SRAVAN Administration Protocol Vancomycin HCl 1 gm in 250 mls @ 167.007 mls/hr 12/01/21 22:00 12/01/21 22:32 Vancomycin/Ns 1 Gm/250 Ml IV 167.007 mls/hr Q24H SRAVAN Administration Magnesium Sulfate 4 gm in 100 mls @ 25 mls/hr 12/02/21 12:52 12/02/21 14:30 Magnesium Sulfate 4gm/100ml IV 12/02/21 16:51 25 mls/hr ONCE ONE Administration Sodium Phosphate 45 mmol/ 515 mls @ 84 mls/hr 12/02/21 12:52 12/02/21 14:30 Sodium Chloride IV 12/02/21 18:59 84 mls/hr ONCE ONE Administration Ondansetron HCl 4 mg 11/30/21 19:24 Ondansetron 4 Mg/2 Ml Inj IV Q8H PRN Nausea And Vomiting Oxycodone/Acetaminophen 2 tab 12/02/21 11:44 12/02/21 14:30 Oxycodone /Acetaminophen 5-325mg Tab PO 2 tab Q8H PRN Administration Pain, Moderate (4-6) Pantoprazole Sodium 40 mg 12/01/21 20:00 12/02/21 09:53 Pantoprazole 40 Mg Tab PO 40 mg QDAY SRAVAN Administration Sodium Chloride 10 ml 11/30/21 22:00 12/02/21 09:55 Sodium Chloride 0.9% 10 Ml Flush Syringe IV 10 ml BID SRAVAN Administration Sodium Chloride 10 ml 11/30/21 19:24 Sodium Chloride 0.9% 10 Ml Flush Syringe IV PRN PRN LINE FLUSH Trazodone HCl 100 mg 12/01/21 22:00 12/01/21 22:31 Trazodone 100 Mg Tab PO 100 mg QHS SRAVAN Administration Venlafaxine HCl 75 mg 12/01/21 20:00 12/02/21 10:39 Venlafaxine 75 Mg Tab PO 75 mg DAILY SRAVAN Administration <ALIZA SWANSON - Last Filed: 12/05/21 13:27> History Interval history: I saw and evaluated the patient. Discussed with the nurse practitioner and agree with their findings and plan as documented in this note. Hospitalist Physical - Constitutional Vitals: Temp Pulse Resp BP Pulse Ox 98.0 F 90 16 89/42 98 12/05/21 08:00 12/05/21 10:15 12/05/21 10:15 12/05/21 10:15 12/05/21 10:15 HEART Score - HEART Score Troponin: Troponin T 0.119 ng/mL (0.00-0.029) H* 11/30/21 15:56 Results - Labs CBC & Chem 7: 12/05/21 04:45 12/05/21 04:45 Labs: Laboratory Last Values WBC 15.0 K/mm3 (4.5-11.0) H 12/05/21 04:45 RBC 3.11 M/mm3 (3.65-5.03) L 12/05/21 04:45 Hgb 8.3 gm/dl (10.1-14.3) L 12/05/21 04:45 Hct 25.2 % (30.3-42.9) L D 12/05/21 04:45 MCV 81 fl (79-97) 12/05/21 04:45 MCH 27 pg (28-32) L 12/05/21 04:45 MCHC 33 % (30-34) 12/05/21 04:45 RDW 18.8 % (13.2-15.2) H 12/05/21 04:45 Plt Count 216 K/mm3 (140-440) 12/05/21 04:45 Lymph % (Auto) 6.3 % (13.4-35.0) L 12/05/21 04:45 [place] % (Auto) 7.4 % (0.0-7.3) H 12/05/21 04:45 Eos % (Auto) 0.1 % (0.0-4.3) 12/05/21 04:45 Baso % (Auto) 0.3 % (0.0-1.8) 12/05/21 04:45 Lymph # (Auto) 0.9 K/mm3 (1.2-5.4) L 12/05/21 04:45 [place] # (Auto) 1.1 K/mm3 (0.0-0.8) H 12/05/21 04:45 Eos # (Auto) 0.0 K/mm3 (0.0-0.4) 12/05/21 04:45 Baso # (Auto) 0.0 K/mm3 (0.0-0.1) 12/05/21 04:45 Add Manual Diff Complete 12/01/21 04:33 Total Counted 100 12/01/21 04:33 Seg Neutrophils % 85.9 % (40.0-70.0) H 12/05/21 04:45 Seg Neuts % (Manual) 82.0 % (40.0-70.0) H 12/01/21 04:33 Band Neutrophils % 8.0 % 12/01/21 04:33 Lymphocytes % (Manual) 5.0 % (13.4-35.0) L 12/01/21 04:33 Reactive Lymphs % (Man) 0 % 12/01/21 04:33 Monocytes % (Manual) 4.0 % (0.0-7.3) 12/01/21 04:33 Eosinophils % (Manual) 0 % (0.0-4.3) 12/01/21 04:33 Basophils % (Manual) 0 % (0.0-1.8) 12/01/21 04:33 Metamyelocytes % 1.0 % 12/01/21 04:33 Myelocytes % 0 % 12/01/21 04:33 Promyelocytes % 0 % 12/01/21 04:33 Blast Cells % 0 % 12/01/21 04:33 Nucleated RBC % Not Reportable 12/01/21 04:33 Seg Neutrophils # 12.9 K/mm3 (1.8-7.7) H 12/05/21 04:45 Seg Neutrophils # Man 17.0 K/mm3 (1.8-7.7) H 12/01/21 04:33 Band Neutrophils # 1.7 K/mm3 12/01/21 04:33 Lymphocytes # (Manual) 1.0 K/mm3 (1.2-5.4) L 12/01/21 04:33 Abs React Lymphs (Man) 0.0 K/mm3 12/01/21 04:33 Monocytes # (Manual) 0.8 K/mm3 (0.0-0.8) 12/01/21 04:33 Eosinophils # (Manual) 0.0 K/mm3 (0.0-0.4) 12/01/21 04:33 Basophils # (Manual) 0.0 K/mm3 (0.0-0.1) 12/01/21 04:33 Metamyelocytes # 0.2 K/mm3 12/01/21 04:33 Myelocytes # 0.0 K/mm3 12/01/21 04:33 Promyelocytes # 0.0 K/mm3 12/01/21 04:33 Blast Cells # 0.0 K/mm3 12/01/21 04:33 WBC Morphology Not Reportable 12/01/21 04:33 Hypersegmented Neuts Not Reportable 12/01/21 04:33 Hyposegmented Neuts Not Reportable 12/01/21 04:33 Hypogranular Neuts Not Reportable 12/01/21 04:33 Smudge Cells Not Reportable 12/01/21 04:33 Toxic Granulation Not Reportable 12/01/21 04:33 Toxic Vacuolation Not Reportable 12/01/21 04:33 Dohle Bodies Not Reportable 12/01/21 04:33 Pelger-Huet Anomaly Not Reportable 12/01/21 04:33 Mary Rods Not Reportable 12/01/21 04:33 Platelet Estimate Consistent w auto 12/01/21 04:33 Clumped Platelets Not Reportable 12/01/21 04:33 Plt Clumps, EDTA Not Reportable 12/01/21 04:33 Large Platelets Not Reportable 12/01/21 04:33 Giant Platelets Not Reportable 12/01/21 04:33 Platelet Satelliting Not Reportable 12/01/21 04:33 Plt Morphology Comment Not Reportable 12/01/21 04:33 RBC Morphology Not Reportable 12/01/21 04:33 Dimorphic RBCs Not Reportable 12/01/21 04:33 Polychromasia Not Reportable 12/01/21 04:33 Hypochromasia 2+ 12/01/21 04:33 Poikilocytosis Few 12/01/21 04:33 Anisocytosis 1+ 12/01/21 04:33 Microcytosis 1+ 12/01/21 04:33 Macrocytosis Not Reportable 12/01/21 04:33 Spherocytes Not Reportable 12/01/21 04:33 Pappenheimer Bodies Not Reportable 12/01/21 04:33 Sickle Cells Not Reportable 12/01/21 04:33 Target Cells Not Reportable 12/01/21 04:33 Tear Drop Cells Not Reportable 12/01/21 04:33 Ovalocytes Few 12/01/21 04:33 Helmet Cells Not Reportable 12/01/21 04:33 [place] Bodies Not Reportable 12/01/21 04:33 Elmo Rings Not Reportable 12/01/21 04:33 Syeda Cells Not Reportable 12/01/21 04:33 Bite Cells Not Reportable 12/01/21 04:33 Crenated Cell Not Reportable 12/01/21 04:33 Elliptocytes Rare 12/01/21 04:33 Acanthocytes (Spur) Not Reportable 12/01/21 04:33 Rouleaux Not Reportable 12/01/21 04:33 Hemoglobin C Crystals Not Reportable 12/01/21 04:33 Schistocytes Not Reportable 12/01/21 04:33 Malaria parasites Not Reportable 12/01/21 04:33 Kvng Bodies Not Reportable 12/01/21 04:33 Hem Pathologist Commnt No 12/01/21 04:33 PT 14.9 Sec. (12.2-14.9) 12/04/21 04:35 INR 1.05 (0.87-1.13) 12/04/21 04:35 APTT 43.1 Sec. (24.2-36.6) H 11/30/21 15:56 VBG pH 7.509 (7.320-7.420) H 11/30/21 15:57 Sodium 140 mmol/L (137-145) 12/05/21 04:45 Potassium 3.5 mmol/L (3.6-5.0) L 12/05/21 04:45 Chloride 107.1 mmol/L (98-107) H 12/05/21 04:45 Carbon Dioxide 22 mmol/L (22-30) 12/05/21 04:45 Anion Gap 14 mmol/L 12/05/21 04:45 BUN 10 mg/dL (7-17) 12/05/21 04:45 Creatinine 0.5 mg/dL (0.6-1.2) L 12/05/21 04:45 Estimated GFR > 60 ml/min 12/05/21 04:45 BUN/Creatinine Ratio 20 % 12/05/21 04:45 Glucose 106 mg/dL (65-100) H 12/05/21 04:45 Lactic Acid 1.20 mmol/L (0.7-2.0) 11/30/21 17:23 Calcium 7.1 mg/dL (8.4-10.2) L D 12/05/21 04:45 Phosphorus 5.20 mg/dL (2.5-4.5) H D 12/03/21 04:24 Magnesium 1.80 mg/dL (1.7-2.3) 12/03/21 04:24 Total Bilirubin 0.50 mg/dL (0.1-1.2) 12/05/21 04:45 AST 14 units/L (5-40) 12/05/21 04:45 ALT 6 units/L (7-56) L 12/05/21 04:45 Alkaline Phosphatase 84 units/L (35-129) 12/05/21 04:45 Troponin T 0.119 ng/mL (0.00-0.029) H* 11/30/21 15:56 Total Protein 3.9 g/dL (6.3-8.2) L 12/05/21 04:45 Albumin 1.5 g/dL (3.9-5) L 12/05/21 04:45 Albumin/Globulin Ratio 0.6 % 12/05/21 04:45 Triglycerides 108 mg/dL (2-149) 11/30/21 15:56 Cholesterol 82 mg/dL (50-199) 11/30/21 15:56 LDL Cholesterol Direct 38 mg/dL (50-130) L 11/30/21 15:56 HDL Cholesterol 28 mg/dL (40-59) L 11/30/21 15:56 Cholesterol/HDL Ratio 2.92 % 11/30/21 15:56 TSH 1.870 mlU/mL (0.270-4.200) 11/30/21 15:57 Urine Color Yellow (Yellow) 11/30/21 02:50 Urine Turbidity Clear (Clear) 11/30/21 02:50 Urine pH 6.0 (5.0-7.0) 11/30/21 02:50 Ur Specific [place] 1.005 (1.003-1.030) 11/30/21 02:50 Urine Protein <15 mg/dl mg/dL (Negative) 11/30/21 02:50 Urine Glucose (UA) Neg mg/dL (Negative) 11/30/21 02:50 Urine Ketones Neg mg/dL (Negative) 11/30/21 02:50 Urine Blood Sm (Negative) 11/30/21 02:50 Urine Nitrite Neg (Negative) 11/30/21 02:50 Urine Bilirubin Neg (Negative) 11/30/21 02:50 Urine Urobilinogen < 2.0 mg/dL (<2.0) 11/30/21 02:50 Ur Leukocyte Esterase Neg (Negative) 11/30/21 02:50 Urine WBC (Auto) 2.0 /HPF (0.0-6.0) 11/30/21 02:50 Urine RBC (Auto) 2.0 /HPF (0.0-6.0) 11/30/21 02:50 U Epithel Cells (Auto) 1.0 /HPF (0-13.0) 11/30/21 02:50 Urine Bacteria (Auto) 1+ /HPF (Negative) 11/30/21 02:50 Urine Yeast (Budding) 1+ /HPF 11/30/21 02:50 Vancomycin Trough 5.3 ug/mL (5.0-20.0) 12/03/21 21:17 Blood Type O POSITIVE 12/03/21 14:07 Antibody Screen Negative 12/03/21 14:07 Crossmatch See Detail 12/03/21 14:07 Microbiology: Microbiology 11/30/21 15:56 Peripheral/Venous Blood Culture - Preliminary NO GROWTH AFTER 4 DAYS 11/30/21 15:56 Peripheral/Venous Blood Culture - Preliminary Victor/IV: Voiding Method External Female Catheter Active Medications - Current Medications Current Medications: Generic Name Dose Route Start Last Admin Trade Name Freq PRN Reason Stop Dose Admin Acetaminophen 650 mg 11/30/21 19:24 12/04/21 22:58 Acetaminophen 325 Mg Tab PO 650 mg Q4H PRN Administration Pain MILD(1-3)/Fever >100.5/GONZALEZ Apixaban 2.5 mg 12/05/21 10:00 12/05/21 10:18 Apixaban 2.5 Mg Tab PO 2.5 mg Q12HR SRAVAN Administration Protocol Aspirin 81 mg 12/04/21 14:00 12/05/21 10:17 Aspirin Ec 81 Mg Tab PO 81 mg QDAY SARVAN Administration Cilostazol 50 mg 12/01/21 22:00 12/05/21 10:17 Cilostazol 100 Mg Tab PO 50 mg BID SRAVAN Administration Docusate Sodium 100 mg 12/01/21 22:00 12/05/21 10:17 Docusate Sodium 100 Mg Cap PO 100 mg BID SRAVAN Administration Gabapentin 100 mg 12/01/21 22:00 12/05/21 10:17 Gabapentin 100 Mg Cap PO 100 mg BID SRAVAN Administration Hydromorphone HCl 0.5 mg 12/01/21 10:42 12/05/21 05:54 Hydromorphone 1 Mg/1 Ml Inj IV 0.5 mg Q4H PRN Administration Pain , Severe (7-10) Hydromorphone HCl 0.5 mg 12/04/21 19:37 Hydromorphone 0.5 Mg/0.5 Ml Inj IV Q10MIN PRN Pain , Severe (7-10) Cefepime HCl 2 gm in 100 mls @ 200 mls/hr 12/01/21 10:00 12/05/21 10:16 Cefepime/Ns 2 Gm/100 Ml IV 200 mls/hr Q12H SRAVAN Administration Protocol Vancomycin HCl 1 gm in 250 mls @ 167.007 mls/hr 12/04/21 11:00 12/05/21 00:55 Vancomycin/Ns 1 Gm/250 Ml IV 167.007 mls/hr Q12H SRAVAN Administration Ondansetron HCl 4 mg 11/30/21 19:24 12/04/21 22:52 Ondansetron 4 Mg/2 Ml Inj IV 4 mg Q8H PRN Administration Nausea And Vomiting Oxycodone/Acetaminophen 2 tab 12/02/21 11:44 12/05/21 10:16 Oxycodone /Acetaminophen 5-325mg Tab PO 2 tab Q8H PRN Administration Pain, Moderate (4-6) Pantoprazole Sodium 40 mg 12/01/21 20:00 12/05/21 10:17 Pantoprazole 40 Mg Tab PO 40 mg QDAY SRAVAN Administration Sodium Chloride 10 ml 11/30/21 22:00 12/05/21 10:18 Sodium Chloride 0.9% 10 Ml Flush Syringe IV 10 ml BID SRAVAN Administration Sodium Chloride 10 ml 11/30/21 19:24 Sodium Chloride 0.9% 10 Ml Flush Syringe IV PRN PRN LINE FLUSH Trazodone HCl 100 mg 12/01/21 22:00 12/04/21 23:00 Trazodone 100 Mg Tab PO 100 mg QHS SRAVAN Administration Venlafaxine HCl 75 mg 12/01/21 20:00 12/05/21 10:18 Venlafaxine 75 Mg Tab PO 75 mg DAILY SRAVAN Administration
[2021-12-02] MEDS: VANCOMYCIN/NS 1 GM/250 ML 1 GM/250 ML BAG IV SCH (21:26)
[2021-12-02] MEDS: traZODone 100 MG TAB PO SCH (21:26)
[2021-12-03 04:48] LABS: Hematocrit 24.5 % (30.3-42.9); Mean Corpuscular HGB Conc 33 % (30-34); Mean Corpuscular Volume 86 fl (79-97); Platelet Count 321 K/mm3 (140-440); Red Blood Count 2.86 M/mm3 (3.65-5.03)
[2021-12-03 05:08] LABS: Blood Urea Nitrogen 6 mg/dL (7-17); Calcium 7.9 mg/dL (8.4-10.2); Hemolysis Index 4
[2021-12-03 05:19] LABS: BUN/Creatinine Ratio 12
[2021-12-03] MEDS ORDERED: POTASSIUM CHLORIDE ER 20 MEQ TAB PO NR (08:00)
[2021-12-03] MEDS: CILOSTAZOL 100 MG TAB PO SCH ×2 (09:06→22:59)
[2021-12-03] MEDS: DOCUSATE SODIUM 100 MG CAP PO SCH ×2 (09:06→22:54)
[2021-12-03] MEDS: VENLAFAXINE 75 MG TAB PO SCH (09:06)
[2021-12-03] MEDS: PANTOPRAZOLE 40 MG TAB PO SCH (09:06)
[2021-12-03] MEDS: GABAPENTIN 100 MG CAP PO SCH ×2 (09:07→22:53)
[2021-12-03] MEDS: oxyCODONE /ACETAMINOPHEN 5-325MG TAB PO PRN ×2 (10:16→18:09)
[2021-12-03] MEDS: CEFEPIME/NS 2 GM/100 ML 2 GM/100 ML BAG IV SCH ×2 (10:23→22:53)
--- NOTE | 2021-12-03 11:39 | Progress Note ---
<GALE SOLIZ - Last Filed: 12/03/21 12:02> Assessment and Plan Assessment and plan: This is a 56 year old female with severe PVD, CAD, HTN, HLD, Anemia Neuro: h/o EtOH abuse, neuropathy -Reorientation as needed -Maintain sleep-wake cycle -As needed analgesia Cardiac: h/o HTN, HLD, CAD -Blood pressure monitoring per protocol -s/p vasopressor support with levophed Respiratory: h/o nicotine abuse -CCM consulted, appreciate recommendations -Pulmonary hygiene -SPO2 monitoring -Supplemental oxygen as needed GI: Moderate Protein calorie malnutrition -24 hour -750 mL -Regular diet with nutritional supplementation -PPI -BR: colace : Acute kidney injury secondary to vasomotor nephropathy, Hypokalemia -Monitor intake and output -Renally dose medications -Avoid nephrotoxic medications -Replete K -Trend BMP ID: Septic shock (POA), leukocytosis -Presented with leukocytosis, acute kidney injury, purulent drainage from leg wounds -Infectious disease consulted, appreciate recommendations -Antibiotic therapy with cefepime and vancomycin -WOCN consulted for wound care -f/u blood culture -Monitor WBC and temperature curve Endo: NAD -Avoid hypoglycemia Vascular/Heme: Acute Anemia, Severe PVD s/p left femoral to below-knee popliteal artery bypass with fasciotomy, right lower extremity vascularization -Vascular surgery consulted, appreciate recommendations -Admit h/h 6.2/19.2 -s/p 2 units PRBC -CTA BLE shows air within the left femoral to popliteal artery bypass graft as well as in fluid collections along the graft. -Per vascular surgery: the patient will require excision of the graft, coverage of her common femoral artery with a sartorious muscle flap, and closure of the distal popliteal artery with a vein patch. The proximal anastamosis is sewn to a vein and can be closed, primarily, after excising the graft from the artery. This can be performed on Saturday or Saturday. -Trend CBC -Transfuse hemoglobin less than 7 The high probability of a clinically significant, sudden or life threatening deterioration of the [multi] system(s) required my full and direct attention, intervention and personal management. The aggregate critical care time was [60] minutes. This time is in addition to time spent performing reported procedures but includes the following: [x] Data Review and interpretation [x] Patient assessment and monitoring of vital signs [x] Documentation [x] Medication orders and management Total Time Spent with Patient (Minutes): 60 History Interval history: This is a 56-year-old female with severe PVD, CAD, HTN, HLD, anemia, EtOH and tobacco abuse who is s/p left femoral to below the knee popliteal artery bypass complicated by compartment syndrome s/p fasciotomy and right leg revascularization who was discharged to SNF after almost 3 week stay via EMS for altered mental status and was hypoentive in ED despite fluid resuscitation was eventually started on Levophed with a placement of central line. Patient was also anemic with a hemoglobin of 6.2 and 1 unit PRBC was transfused. She also had leukocytosis, acute kidney injury, elevated troponin and purulent drainage from wounds. Patient was admitted to the hospital service with consult to vascular surgery, ID and CCM with Sepsis. Hospital course to date: 12/01: Additional LR boluses, KCL 40 PO, prn diludid given for pain. Wean levophed as tolerated. 12/02: Adjustment to pain regimen, CTA pelvis and lower extremities with contrast obtained. Phosphorus and magnesium repleted 12/03: No vascular interventions till Saturday/Saturday. Pain better controlled. No acute events overnight. Transfer to [facility] Hospitalist Physical - Physical exam Narrative exam: Physical Exam: VITAL SIGNS: Reviewed. GENERAL: The patient appears cachectic, Vital signs as documented. HEAD: No signs of head trauma. EYES: Pupils are equal. Extraocular motions intact. EARS: Hearing grossly intact. MOUTH: Oropharynx is normal. NECK: No adenopathy, no JVD. CHEST: Chest with clear breath sounds bilaterally. No wheezes, rales, or rhonchi. CARDIAC: Regular rate and rhythm. S1 and S2, without murmurs, gallops, or rubs. VASCULAR: No Edema. Peripheral pulses papable but weak in BLE ABDOMEN: Soft, non tender and non distended. No rebound or guarding, and no masses palpated. Bowel Sounds normal. MUSCULOSKELETAL: Good range of motion of all major joints. Extremities without clubbing, cyanosis or edema. NEUROLOGIC EXAM: Alert and oriented x 4. no focal sensory or strength deficits. PSYCHIATRIC: Mood normal. SKIN: detail exam as documented in skin assessment - Constitutional Vitals: Temp Pulse Resp BP Pulse Ox 98.9 F 95 H 20 117/65 96 12/03/21 07:49 12/03/21 10:00 12/03/21 10:00 12/03/21 10:00 12/03/21 10:00 General appearance: Present: no acute distress HEART Score - HEART Score Troponin: Troponin T 0.119 ng/mL (0.00-0.029) H* 11/30/21 15:56 Results - Labs CBC & Chem 7: 12/03/21 04:24 12/03/21 04:24 Labs: Laboratory Last Values WBC 8.4 K/mm3 (4.5-11.0) 12/03/21 04:24 RBC 2.86 M/mm3 (3.65-5.03) L 12/03/21 04:24 Hgb 8.0 gm/dl (10.1-14.3) L 12/03/21 04:24 Hct 24.5 % (30.3-42.9) L 12/03/21 04:24 MCV 86 fl (79-97) 12/03/21 04:24 MCH 28 pg (28-32) 12/03/21 04:24 MCHC 33 % (30-34) 12/03/21 04:24 RDW 16.0 % (13.2-15.2) H 12/03/21 04:24 Plt Count 321 K/mm3 (140-440) 12/03/21 04:24 Add Manual Diff Complete 12/01/21 04:33 Total Counted 100 12/01/21 04:33 Seg Neutrophils % [employer] 11/30/21 15:56 Seg Neuts % (Manual) 82.0 % (40.0-70.0) H 12/01/21 04:33 Band Neutrophils % 8.0 % 12/01/21 04:33 Lymphocytes % (Manual) 5.0 % (13.4-35.0) L 12/01/21 04:33 Reactive Lymphs % (Man) 0 % 12/01/21 04:33 Monocytes % (Manual) 4.0 % (0.0-7.3) 12/01/21 04:33 Eosinophils % (Manual) 0 % (0.0-4.3) 12/01/21 04:33 Basophils % (Manual) 0 % (0.0-1.8) 12/01/21 04:33 Metamyelocytes % 1.0 % 12/01/21 04:33 Myelocytes % 0 % 12/01/21 04:33 Promyelocytes % 0 % 12/01/21 04:33 Blast Cells % 0 % 12/01/21 04:33 Nucleated RBC % Not Reportable 12/01/21 04:33 Seg Neutrophils # Man 17.0 K/mm3 (1.8-7.7) H 12/01/21 04:33 Band Neutrophils # 1.7 K/mm3 12/01/21 04:33 Lymphocytes # (Manual) 1.0 K/mm3 (1.2-5.4) L 12/01/21 04:33 Abs React Lymphs (Man) 0.0 K/mm3 12/01/21 04:33 Monocytes # (Manual) 0.8 K/mm3 (0.0-0.8) 12/01/21 04:33 Eosinophils # (Manual) 0.0 K/mm3 (0.0-0.4) 12/01/21 04:33 Basophils # (Manual) 0.0 K/mm3 (0.0-0.1) 12/01/21 04:33 Metamyelocytes # 0.2 K/mm3 12/01/21 04:33 Myelocytes # 0.0 K/mm3 12/01/21 04:33 Promyelocytes # 0.0 K/mm3 12/01/21 04:33 Blast Cells # 0.0 K/mm3 12/01/21 04:33 WBC Morphology Not Reportable 12/01/21 04:33 Hypersegmented Neuts Not Reportable 12/01/21 04:33 Hyposegmented Neuts Not Reportable 12/01/21 04:33 Hypogranular Neuts Not Reportable 12/01/21 04:33 Smudge Cells Not Reportable 12/01/21 04:33 Toxic Granulation Not Reportable 12/01/21 04:33 Toxic Vacuolation Not Reportable 12/01/21 04:33 Dohle Bodies Not Reportable 12/01/21 04:33 Pelger-Huet Anomaly Not Reportable 12/01/21 04:33 Mary Rods Not Reportable 12/01/21 04:33 Platelet Estimate Consistent w auto 12/01/21 04:33 Clumped Platelets Not Reportable 12/01/21 04:33 Plt Clumps, EDTA Not Reportable 12/01/21 04:33 Large Platelets Not Reportable 12/01/21 04:33 Giant Platelets Not Reportable 12/01/21 04:33 Platelet Satelliting Not Reportable 12/01/21 04:33 Plt Morphology Comment Not Reportable 12/01/21 04:33 RBC Morphology Not Reportable 12/01/21 04:33 Dimorphic RBCs Not Reportable 12/01/21 04:33 Polychromasia Not Reportable 12/01/21 04:33 Hypochromasia 2+ 12/01/21 04:33 Poikilocytosis Few 12/01/21 04:33 Anisocytosis 1+ 12/01/21 04:33 Microcytosis 1+ 12/01/21 04:33 Macrocytosis Not Reportable 12/01/21 04:33 Spherocytes Not Reportable 12/01/21 04:33 Pappenheimer Bodies Not Reportable 12/01/21 04:33 Sickle Cells Not Reportable 12/01/21 04:33 Target Cells Not Reportable 12/01/21 04:33 Tear Drop Cells Not Reportable 12/01/21 04:33 Ovalocytes Few 12/01/21 04:33 Helmet Cells Not Reportable 12/01/21 04:33 Ybarra-[place] Bodies Not Reportable 12/01/21 04:33 [place] Rings Not Reportable 12/01/21 04:33 Syeda Cells Not Reportable 12/01/21 04:33 Bite Cells Not Reportable 12/01/21 04:33 Crenated Cell Not Reportable 12/01/21 04:33 Elliptocytes Rare 12/01/21 04:33 Acanthocytes (Spur) Not Reportable 12/01/21 04:33 Rouleaux Not Reportable 12/01/21 04:33 Hemoglobin C Crystals Not Reportable 12/01/21 04:33 Schistocytes Not Reportable 12/01/21 04:33 Malaria parasites Not Reportable 12/01/21 04:33 Kvng Bodies Not Reportable 12/01/21 04:33 Hem Pathologist Commnt No 12/01/21 04:33 PT 23.9 Sec. (12.2-14.9) H 11/30/21 15:56 INR 1.87 (0.87-1.13) H 11/30/21 15:56 APTT 43.1 Sec. (24.2-36.6) H 11/30/21 15:56 VBG pH 7.509 (7.320-7.420) H 11/30/21 15:57 Sodium 140 mmol/L (137-145) 12/03/21 04:24 Potassium 3.4 mmol/L (3.6-5.0) L 12/03/21 04:24 Chloride 105.5 mmol/L (98-107) 12/03/21 04:24 Carbon Dioxide 24 mmol/L (22-30) 12/03/21 04:24 Anion Gap 14 mmol/L 12/03/21 04:24 BUN 6 mg/dL (7-17) L 12/03/21 04:24 Creatinine 0.5 mg/dL (0.6-1.2) L 12/03/21 04:24 Estimated GFR > 60 ml/min 12/03/21 04:24 BUN/Creatinine Ratio 12 % 12/03/21 04:24 Glucose 95 mg/dL (65-100) 12/03/21 04:24 Lactic Acid 1.20 mmol/L (0.7-2.0) 11/30/21 17:23 Calcium 7.9 mg/dL (8.4-10.2) L 12/03/21 04:24 Phosphorus 5.20 mg/dL (2.5-4.5) H D 12/03/21 04:24 Magnesium 1.80 mg/dL (1.7-2.3) 12/03/21 04:24 Total Bilirubin 0.40 mg/dL (0.1-1.2) 11/30/21 15:56 AST 16 units/L (5-40) 11/30/21 15:56 ALT 7 units/L (7-56) 11/30/21 15:56 Alkaline Phosphatase 80 units/L (35-129) 11/30/21 15:56 Troponin T 0.119 ng/mL (0.00-0.029) H* 11/30/21 15:56 Total Protein 4.2 g/dL (6.3-8.2) L 11/30/21 15:56 Albumin 2.4 g/dL (3.9-5) L 11/30/21 15:56 Albumin/Globulin Ratio 1.3 % 11/30/21 15:56 Triglycerides 108 mg/dL (2-149) 11/30/21 15:56 Cholesterol 82 mg/dL (50-199) 11/30/21 15:56 LDL Cholesterol Direct 38 mg/dL (50-130) L 11/30/21 15:56 HDL Cholesterol 28 mg/dL (40-59) L 11/30/21 15:56 Cholesterol/HDL Ratio 2.92 % 11/30/21 15:56 TSH 1.870 mlU/mL (0.270-4.200) 11/30/21 15:57 Urine Color Yellow (Yellow) 11/30/21 02:50 Urine Turbidity Clear (Clear) 11/30/21 02:50 Urine pH 6.0 (5.0-7.0) 11/30/21 02:50 Ur Specific [place] 1.005 (1.003-1.030) 11/30/21 02:50 Urine Protein <15 mg/dl mg/dL (Negative) 11/30/21 02:50 Urine Glucose (UA) Neg mg/dL (Negative) 11/30/21 02:50 Urine Ketones Neg mg/dL (Negative) 11/30/21 02:50 Urine Blood Sm (Negative) 11/30/21 02:50 Urine Nitrite Neg (Negative) 11/30/21 02:50 Urine Bilirubin Neg (Negative) 11/30/21 02:50 Urine Urobilinogen < 2.0 mg/dL (<2.0) 11/30/21 02:50 Ur Leukocyte Esterase Neg (Negative) 11/30/21 02:50 Urine WBC (Auto) 2.0 /HPF (0.0-6.0) 11/30/21 02:50 Urine RBC (Auto) 2.0 /HPF (0.0-6.0) 11/30/21 02:50 U Epithel Cells (Auto) 1.0 /HPF (0-13.0) 11/30/21 02:50 Urine Bacteria (Auto) 1+ /HPF (Negative) 11/30/21 02:50 Urine Yeast (Budding) 1+ /HPF 11/30/21 02:50 Blood Type O POSITIVE 11/30/21 17:23 Antibody Screen Negative 11/30/21 17:23 Crossmatch See Detail 11/30/21 17:23 Microbiology: Microbiology 11/30/21 15:56 Peripheral/Venous Blood Culture - Preliminary NO GROWTH AFTER 48 HOURS 11/30/21 15:56 Peripheral/Venous Blood Culture - Preliminary NO GROWTH AFTER 48 HOURS Victor/IV: Voiding Method External Female Catheter Active Medications - Current Medications Current Medications: Generic Name Dose Route Start Last Admin Trade Name Freq PRN Reason Stop Dose Admin Acetaminophen 650 mg 11/30/21 19:24 Acetaminophen 325 Mg Tab PO Q4H PRN Pain MILD(1-3)/Fever >100.5/GONZALEZ Cilostazol 50 mg 12/01/21 22:00 12/03/21 09:06 Cilostazol 100 Mg Tab PO 50 mg BID SRAVAN Administration Docusate Sodium 100 mg 12/01/21 22:00 12/03/21 09:06 Docusate Sodium 100 Mg Cap PO 100 mg BID SRAVAN Administration Gabapentin 100 mg 12/01/21 22:00 12/03/21 09:07 Gabapentin 100 Mg Cap PO 100 mg BID SRAVAN Administration Hydromorphone HCl 0.5 mg 12/01/21 10:42 12/02/21 02:13 Hydromorphone 1 Mg/1 Ml Inj IV 0.5 mg Q4H PRN Administration Pain , Severe (7-10) NORepinephrine/NS 8 MG-250 ML 8 mg in 250 mls @ 3.75 mls/hr 11/30/21 17:00 12/01/21 16:31 Norepinephrine/Ns 8 Mg-250 Ml (Double Conc) IV 0 mcg/min TITRATE SRAVAN 0 mls/hr Titration Protocol 2 MCG/MIN Cefepime HCl 2 gm in 100 mls @ 200 mls/hr 12/01/21 10:00 12/03/21 10:23 Cefepime/Ns 2 Gm/100 Ml IV 200 mls/hr Q12H SRAVAN Administration Protocol Vancomycin HCl 1 gm in 250 mls @ 167.007 mls/hr 12/01/21 22:00 12/02/21 21:26 Vancomycin/Ns 1 Gm/250 Ml IV 167.007 mls/hr Q24H SRAVAN Administration Ondansetron HCl 4 mg 11/30/21 19:24 Ondansetron 4 Mg/2 Ml Inj IV Q8H PRN Nausea And Vomiting Oxycodone/Acetaminophen 2 tab 12/02/21 11:44 12/03/21 10:16 Oxycodone /Acetaminophen 5-325mg Tab PO 2 tab Q8H PRN Administration Pain, Moderate (4-6) Pantoprazole Sodium 40 mg 12/01/21 20:00 12/03/21 09:06 Pantoprazole 40 Mg Tab PO 40 mg QDAY SRAVAN Administration Sodium Chloride 10 ml 11/30/21 22:00 12/03/21 09:07 Sodium Chloride 0.9% 10 Ml Flush Syringe IV 10 ml BID SRAVAN Administration Sodium Chloride 10 ml 11/30/21 19:24 Sodium Chloride 0.9% 10 Ml Flush Syringe IV PRN PRN LINE FLUSH Trazodone HCl 100 mg 12/01/21 22:00 12/02/21 21:26 Trazodone 100 Mg Tab PO 100 mg QHS SRAVAN Administration Venlafaxine HCl 75 mg 12/01/21 20:00 12/03/21 09:06 Venlafaxine 75 Mg Tab PO 75 mg DAILY SRAVAN Administration <ALIZA SWANSON - Last Filed: 12/05/21 13:09> History Interval history: I saw and evaluated the patient. Discussed with the nurse practitioner and agree with their findings and plan as documented in this note. Hospitalist Physical - Constitutional Vitals: Temp Pulse Resp BP Pulse Ox 98.0 F 90 16 89/42 98 12/05/21 08:00 12/05/21 10:15 12/05/21 10:15 12/05/21 10:15 12/05/21 10:15 HEART Score - HEART Score Troponin: Troponin T 0.119 ng/mL (0.00-0.029) H* 11/30/21 15:56 Results - Labs CBC & Chem 7: 12/05/21 04:45 12/05/21 04:45 Labs: Laboratory Last Values WBC 15.0 K/mm3 (4.5-11.0) H 12/05/21 04:45 RBC 3.11 M/mm3 (3.65-5.03) L 12/05/21 04:45 Hgb 8.3 gm/dl (10.1-14.3) L 12/05/21 04:45 Hct 25.2 % (30.3-42.9) L D 12/05/21 04:45 MCV 81 fl (79-97) 12/05/21 04:45 MCH 27 pg (28-32) L 12/05/21 04:45 MCHC 33 % (30-34) 12/05/21 04:45 RDW 18.8 % (13.2-15.2) H 12/05/21 04:45 Plt Count 216 K/mm3 (140-440) 12/05/21 04:45 Lymph % (Auto) 6.3 % (13.4-35.0) L 12/05/21 04:45 [place] % (Auto) 7.4 % (0.0-7.3) H 12/05/21 04:45 Eos % (Auto) 0.1 % (0.0-4.3) 12/05/21 04:45 Baso % (Auto) 0.3 % (0.0-1.8) 12/05/21 04:45 Lymph # (Auto) 0.9 K/mm3 (1.2-5.4) L 12/05/21 04:45 [place] # (Auto) 1.1 K/mm3 (0.0-0.8) H 12/05/21 04:45 Eos # (Auto) 0.0 K/mm3 (0.0-0.4) 12/05/21 04:45 Baso # (Auto) 0.0 K/mm3 (0.0-0.1) 12/05/21 04:45 Add Manual Diff Complete 12/01/21 04:33 Total Counted 100 12/01/21 04:33 Seg Neutrophils % 85.9 % (40.0-70.0) H 12/05/21 04:45 Seg Neuts % (Manual) 82.0 % (40.0-70.0) H 12/01/21 04:33 Band Neutrophils % 8.0 % 12/01/21 04:33 Lymphocytes % (Manual) 5.0 % (13.4-35.0) L 12/01/21 04:33 Reactive Lymphs % (Man) 0 % 12/01/21 04:33 Monocytes % (Manual) 4.0 % (0.0-7.3) 12/01/21 04:33 Eosinophils % (Manual) 0 % (0.0-4.3) 12/01/21 04:33 Basophils % (Manual) 0 % (0.0-1.8) 12/01/21 04:33 Metamyelocytes % 1.0 % 12/01/21 04:33 Myelocytes % 0 % 12/01/21 04:33 Promyelocytes % 0 % 12/01/21 04:33 Blast Cells % 0 % 12/01/21 04:33 Nucleated RBC % Not Reportable 12/01/21 04:33 Seg Neutrophils # 12.9 K/mm3 (1.8-7.7) H 12/05/21 04:45 Seg Neutrophils # Man 17.0 K/mm3 (1.8-7.7) H 12/01/21 04:33 Band Neutrophils # 1.7 K/mm3 12/01/21 04:33 Lymphocytes # (Manual) 1.0 K/mm3 (1.2-5.4) L 12/01/21 04:33 Abs React Lymphs (Man) 0.0 K/mm3 12/01/21 04:33 Monocytes # (Manual) 0.8 K/mm3 (0.0-0.8) 12/01/21 04:33 Eosinophils # (Manual) 0.0 K/mm3 (0.0-0.4) 12/01/21 04:33 Basophils # (Manual) 0.0 K/mm3 (0.0-0.1) 12/01/21 04:33 Metamyelocytes # 0.2 K/mm3 12/01/21 04:33 Myelocytes # 0.0 K/mm3 12/01/21 04:33 Promyelocytes # 0.0 K/mm3 12/01/21 04:33 Blast Cells # 0.0 K/mm3 12/01/21 04:33 WBC Morphology Not Reportable 12/01/21 04:33 Hypersegmented Neuts Not Reportable 12/01/21 04:33 Hyposegmented Neuts Not Reportable 12/01/21 04:33 Hypogranular Neuts Not Reportable 12/01/21 04:33 Smudge Cells Not Reportable 12/01/21 04:33 Toxic Granulation Not Reportable 12/01/21 04:33 Toxic Vacuolation Not Reportable 12/01/21 04:33 Dohle Bodies Not Reportable 12/01/21 04:33 Pelger-Huet Anomaly Not Reportable 12/01/21 04:33 Mary Rods Not Reportable 12/01/21 04:33 Platelet Estimate Consistent w auto 12/01/21 04:33 Clumped Platelets Not Reportable 12/01/21 04:33 Plt Clumps, EDTA Not Reportable 12/01/21 04:33 Large Platelets Not Reportable 12/01/21 04:33 Giant Platelets Not Reportable 12/01/21 04:33 Platelet Satelliting Not Reportable 12/01/21 04:33 Plt Morphology Comment Not Reportable 12/01/21 04:33 RBC Morphology Not Reportable 12/01/21 04:33 Dimorphic RBCs Not Reportable 12/01/21 04:33 Polychromasia Not Reportable 12/01/21 04:33 Hypochromasia 2+ 12/01/21 04:33 Poikilocytosis Few 12/01/21 04:33 Anisocytosis 1+ 12/01/21 04:33 Microcytosis 1+ 12/01/21 04:33 Macrocytosis Not Reportable 12/01/21 04:33 Spherocytes Not Reportable 12/01/21 04:33 Pappenheimer Bodies Not Reportable 12/01/21 04:33 Sickle Cells Not Reportable 12/01/21 04:33 Target Cells Not Reportable 12/01/21 04:33 Tear Drop Cells Not Reportable 12/01/21 04:33 Ovalocytes Few 12/01/21 04:33 Helmet Cells Not Reportable 12/01/21 04:33 Ybarra-[place] Bodies Not Reportable 12/01/21 04:33 [place] Rings Not Reportable 12/01/21 04:33 [place] Cells Not Reportable 12/01/21 04:33 Bite Cells Not Reportable 12/01/21 04:33 Crenated Cell Not Reportable 12/01/21 04:33 Elliptocytes Rare 12/01/21 04:33 Acanthocytes (Spur) Not Reportable 12/01/21 04:33 Rouleaux Not Reportable 12/01/21 04:33 Hemoglobin C Crystals Not Reportable 12/01/21 04:33 Schistocytes Not Reportable 12/01/21 04:33 Malaria parasites Not Reportable 12/01/21 04:33 Kvng Bodies Not Reportable 12/01/21 04:33 Hem Pathologist Commnt No 12/01/21 04:33 PT 14.9 Sec. (12.2-14.9) 12/04/21 04:35 INR 1.05 (0.87-1.13) 12/04/21 04:35 APTT 43.1 Sec. (24.2-36.6) H 11/30/21 15:56 VBG pH 7.509 (7.320-7.420) H 11/30/21 15:57 Sodium 140 mmol/L (137-145) 12/05/21 04:45 Potassium 3.5 mmol/L (3.6-5.0) L 12/05/21 04:45 Chloride 107.1 mmol/L (98-107) H 12/05/21 04:45 Carbon Dioxide 22 mmol/L (22-30) 12/05/21 04:45 Anion Gap 14 mmol/L 12/05/21 04:45 BUN 10 mg/dL (7-17) 12/05/21 04:45 Creatinine 0.5 mg/dL (0.6-1.2) L 12/05/21 04:45 Estimated GFR > 60 ml/min 12/05/21 04:45 BUN/Creatinine Ratio 20 % 12/05/21 04:45 Glucose 106 mg/dL (65-100) H 12/05/21 04:45 Lactic Acid 1.20 mmol/L (0.7-2.0) 11/30/21 17:23 Calcium 7.1 mg/dL (8.4-10.2) L D 12/05/21 04:45 Phosphorus 5.20 mg/dL (2.5-4.5) H D 12/03/21 04:24 Magnesium 1.80 mg/dL (1.7-2.3) 12/03/21 04:24 Total Bilirubin 0.50 mg/dL (0.1-1.2) 12/05/21 04:45 AST 14 units/L (5-40) 12/05/21 04:45 ALT 6 units/L (7-56) L 12/05/21 04:45 Alkaline Phosphatase 84 units/L (35-129) 12/05/21 04:45 Troponin T 0.119 ng/mL (0.00-0.029) H* 11/30/21 15:56 Total Protein 3.9 g/dL (6.3-8.2) L 12/05/21 04:45 Albumin 1.5 g/dL (3.9-5) L 12/05/21 04:45 Albumin/Globulin Ratio 0.6 % 12/05/21 04:45 Triglycerides 108 mg/dL (2-149) 11/30/21 15:56 Cholesterol 82 mg/dL (50-199) 11/30/21 15:56 LDL Cholesterol Direct 38 mg/dL (50-130) L 11/30/21 15:56 HDL Cholesterol 28 mg/dL (40-59) L 11/30/21 15:56 Cholesterol/HDL Ratio 2.92 % 11/30/21 15:56 TSH 1.870 mlU/mL (0.270-4.200) 11/30/21 15:57 Urine Color Yellow (Yellow) 11/30/21 02:50 Urine Turbidity Clear (Clear) 11/30/21 02:50 Urine pH 6.0 (5.0-7.0) 11/30/21 02:50 Ur Specific [place] 1.005 (1.003-1.030) 11/30/21 02:50 Urine Protein <15 mg/dl mg/dL (Negative) 11/30/21 02:50 Urine Glucose (UA) Neg mg/dL (Negative) 11/30/21 02:50 Urine Ketones Neg mg/dL (Negative) 11/30/21 02:50 Urine Blood Sm (Negative) 11/30/21 02:50 Urine Nitrite Neg (Negative) 11/30/21 02:50 Urine Bilirubin Neg (Negative) 11/30/21 02:50 Urine Urobilinogen < 2.0 mg/dL (<2.0) 11/30/21 02:50 Ur Leukocyte Esterase Neg (Negative) 11/30/21 02:50 Urine WBC (Auto) 2.0 /HPF (0.0-6.0) 11/30/21 02:50 Urine RBC (Auto) 2.0 /HPF (0.0-6.0) 11/30/21 02:50 U Epithel Cells (Auto) 1.0 /HPF (0-13.0) 11/30/21 02:50 Urine Bacteria (Auto) 1+ /HPF (Negative) 11/30/21 02:50 Urine Yeast (Budding) 1+ /HPF 11/30/21 02:50 Vancomycin Trough 5.3 ug/mL (5.0-20.0) 12/03/21 21:17 Blood Type O POSITIVE 12/03/21 14:07 Antibody Screen Negative 12/03/21 14:07 Crossmatch See Detail 12/03/21 14:07 Microbiology: Microbiology 11/30/21 15:56 Peripheral/Venous Blood Culture - Preliminary NO GROWTH AFTER 4 DAYS 11/30/21 15:56 Peripheral/Venous Blood Culture - Preliminary Victor/IV: Voiding Method External Female Catheter Active Medications - Current Medications Current Medications: Generic Name Dose Route Start Last Admin Trade Name Freq PRN Reason Stop Dose Admin Acetaminophen 650 mg 11/30/21 19:24 12/04/21 22:58 Acetaminophen 325 Mg Tab PO 650 mg Q4H PRN Administration Pain MILD(1-3)/Fever >100.5/GONZALEZ Apixaban 2.5 mg 12/05/21 10:00 12/05/21 10:18 Apixaban 2.5 Mg Tab PO 2.5 mg Q12HR SRAVAN Administration Protocol Aspirin 81 mg 12/04/21 14:00 12/05/21 10:17 Aspirin Ec 81 Mg Tab PO 81 mg QDAY SRAVAN Administration Cilostazol 50 mg 12/01/21 22:00 12/05/21 10:17 Cilostazol 100 Mg Tab PO 50 mg BID SRAVAN Administration Docusate Sodium 100 mg 12/01/21 22:00 12/05/21 10:17 Docusate Sodium 100 Mg Cap PO 100 mg BID SRAVAN Administration Gabapentin 100 mg 12/01/21 22:00 12/05/21 10:17 Gabapentin 100 Mg Cap PO 100 mg BID SRAVAN Administration Hydromorphone HCl 0.5 mg 12/01/21 10:42 12/05/21 05:54 Hydromorphone 1 Mg/1 Ml Inj IV 0.5 mg Q4H PRN Administration Pain , Severe (7-10) Hydromorphone HCl 0.5 mg 12/04/21 19:37 Hydromorphone 0.5 Mg/0.5 Ml Inj IV Q10MIN PRN Pain , Severe (7-10) Cefepime HCl 2 gm in 100 mls @ 200 mls/hr 12/01/21 10:00 12/05/21 10:16 Cefepime/Ns 2 Gm/100 Ml IV 200 mls/hr Q12H SRAVAN Administration Protocol Vancomycin HCl 1 gm in 250 mls @ 167.007 mls/hr 12/04/21 11:00 12/05/21 00:55 Vancomycin/Ns 1 Gm/250 Ml IV 167.007 mls/hr Q12H SRAVAN Administration Ondansetron HCl 4 mg 11/30/21 19:24 12/04/21 22:52 Ondansetron 4 Mg/2 Ml Inj IV 4 mg Q8H PRN Administration Nausea And Vomiting Oxycodone/Acetaminophen 2 tab 12/02/21 11:44 12/05/21 10:16 Oxycodone /Acetaminophen 5-325mg Tab PO 2 tab Q8H PRN Administration Pain, Moderate (4-6) Pantoprazole Sodium 40 mg 12/01/21 20:00 12/05/21 10:17 Pantoprazole 40 Mg Tab PO 40 mg QDAY SRAVAN Administration Sodium Chloride 10 ml 11/30/21 22:00 12/05/21 10:18 Sodium Chloride 0.9% 10 Ml Flush Syringe IV 10 ml BID SRAVAN Administration Sodium Chloride 10 ml 11/30/21 19:24 Sodium Chloride 0.9% 10 Ml Flush Syringe IV PRN PRN LINE FLUSH Trazodone HCl 100 mg 12/01/21 22:00 12/04/21 23:00 Trazodone 100 Mg Tab PO 100 mg QHS SRAVAN Administration Venlafaxine HCl 75 mg 12/01/21 20:00 12/05/21 10:18 Venlafaxine 75 Mg Tab PO 75 mg DAILY SRAVAN Administration
--- NOTE | 2021-12-03 12:28 | Progress Note ---
Assessment and Plan 56 y/o female with known PVD, admitted with hypotension, likely from sepsis, possibly related to lower ext. 12/03/21: Will need graft removed. Follow up vascular recs. Agree with step down 12/02/21: Will get CT of limb with contrast today. Pain control. IVF's. If bed needed, please move to step down, not floor. 1. Reviewed ID note 2 Continue abx 3. Follow up vascular recs 4. More fluid resuscitation, need to get patient off pressors. 5. Guarded prognosis. CCT 31 minutes. Subjective Date of service: 12/03/21 Interval history: Air around graft on CT Objective - Constitutional Vitals: Vital Signs - 12hr 12/03/21 12/03/21 12/03/21 00:30 00:45 01:00 Temperature Pulse Rate 89 89 87 Pulse Rate [ From Monitor] Respiratory 12 10 L 12 Rate Blood Pressure 97/45 97/45 110/53 O2 Sat by Pulse 92 92 92 Oximetry 12/03/21 12/03/21 12/03/21 01:15 01:30 01:45 Temperature Pulse Rate 87 85 86 Pulse Rate [ From Monitor] Respiratory 13 10 L 13 Rate Blood Pressure 110/53 100/47 100/47 O2 Sat by Pulse 92 92 92 Oximetry 12/03/21 12/03/21 12/03/21 02:00 02:15 02:30 Temperature Pulse Rate 85 85 79 Pulse Rate [ From Monitor] Respiratory 9 L 15 10 L Rate Blood Pressure 96/49 96/49 99/48 O2 Sat by Pulse 92 92 93 Oximetry 12/03/21 12/03/21 12/03/21 02:45 03:00 03:15 Temperature Pulse Rate 84 82 82 Pulse Rate [ From Monitor] Respiratory 11 L 10 L 10 L Rate Blood Pressure 96/49 91/45 99/48 O2 Sat by Pulse 93 94 93 Oximetry 12/03/21 12/03/21 12/03/21 03:30 03:45 04:00 Temperature 99.3 F Pulse Rate 87 81 85 Pulse Rate [ 85 From Monitor] Respiratory 13 10 L 10 L Rate Blood Pressure 117/63 117/63 109/60 O2 Sat by Pulse 92 95 95 Oximetry 12/03/21 12/03/21 12/03/21 04:15 04:30 04:45 Temperature Pulse Rate 79 79 81 Pulse Rate [ From Monitor] Respiratory 11 L 10 L 11 L Rate Blood Pressure 109/60 102/55 102/55 O2 Sat by Pulse 96 95 95 Oximetry 12/03/21 12/03/21 12/03/21 05:00 05:15 05:30 Temperature Pulse Rate 84 83 81 Pulse Rate [ From Monitor] Respiratory 13 11 L 11 L Rate Blood Pressure 102/55 94/50 109/55 O2 Sat by Pulse 93 93 94 Oximetry 12/03/21 12/03/21 12/03/21 05:45 06:00 06:15 Temperature Pulse Rate 83 79 83 Pulse Rate [ From Monitor] Respiratory 13 11 L 11 L Rate Blood Pressure 94/50 111/54 111/54 O2 Sat by Pulse 96 95 96 Oximetry 12/03/21 12/03/21 12/03/21 06:30 06:45 07:00 Temperature Pulse Rate 91 H 88 87 Pulse Rate [ From Monitor] Respiratory 11 L 17 16 Rate Blood Pressure 97/70 97/70 123/60 O2 Sat by Pulse 94 93 93 Oximetry 12/03/21 12/03/21 12/03/21 07:15 07:30 07:45 Temperature Pulse Rate 86 88 89 Pulse Rate [ From Monitor] Respiratory 12 14 14 Rate Blood Pressure 97/70 119/59 119/59 O2 Sat by Pulse 93 94 92 Oximetry 12/03/21 12/03/21 12/03/21 07:49 08:00 08:15 Temperature 98.9 F Pulse Rate 91 H 92 H Pulse Rate [ 85 From Monitor] Respiratory 12 16 Rate Blood Pressure 122/60 122/60 O2 Sat by Pulse 92 93 Oximetry 12/03/21 12/03/21 12/03/21 08:30 08:45 09:00 Temperature Pulse Rate 96 H 92 H Pulse Rate [ From Monitor] Respiratory 23 25 H Rate Blood Pressure 135/65 135/65 134/63 O2 Sat by Pulse 93 93 99 Oximetry 12/03/21 12/03/21 12/03/21 09:15 09:31 09:45 Temperature Pulse Rate 94 H 95 H 93 H Pulse Rate [ From Monitor] Respiratory 21 21 15 Rate Blood Pressure 134/63 139/55 139/55 O2 Sat by Pulse 99 97 98 Oximetry 12/03/21 12/03/21 12/03/21 10:00 10:15 10:30 Temperature Pulse Rate 95 H 97 H 99 H Pulse Rate [ From Monitor] Respiratory 20 22 20 Rate Blood Pressure 117/65 117/65 111/66 O2 Sat by Pulse 96 99 95 Oximetry 12/03/21 12/03/21 12/03/21 10:45 11:01 11:15 Temperature Pulse Rate 94 H 95 H 92 H Pulse Rate [ From Monitor] Respiratory 13 11 L 12 Rate Blood Pressure 111/66 111/48 111/48 O2 Sat by Pulse 92 93 93 Oximetry 12/03/21 12/03/21 12/03/21 11:30 11:45 11:52 Temperature 98.4 F Pulse Rate 90 88 Pulse Rate [ From Monitor] Respiratory 10 L 11 L Rate Blood Pressure 93/50 93/50 O2 Sat by Pulse 91 94 Oximetry 12/03/21 12:00 Temperature Pulse Rate 85 Pulse Rate [ 85 From Monitor] Respiratory 9 L Rate Blood Pressure 87/43 O2 Sat by Pulse 95 Oximetry - Labs CBC & Chem 7: 12/03/21 04:24 12/03/21 04:24 Labs: Abnormal lab results 12/03/21 12/03/21 Range/Units 04:24 04:24 RBC 2.86 L (3.65-5.03) M/mm3 Hgb 8.0 L (10.1-14.3) gm/dl Hct 24.5 L (30.3-42.9) % RDW 16.0 H (13.2-15.2) % Potassium 3.4 L (3.6-5.0) mmol/L BUN 6 L (7-17) mg/dL Creatinine 0.5 L (0.6-1.2) mg/dL Calcium 7.9 L (8.4-10.2) mg/dL Phosphorus 5.20 H D (2.5-4.5) mg/dL Medications & Allergies - Medications Allergies/Adverse Reactions: Allergies No Known Allergies Allergy (Verified 10/20/21 09:17) Home Medications: Home Medications Medication Instructions Recorded Confirmed Last Taken Type Apixaban [Eliquis] 2.5 mg PO Q12HR #60 tab 09/01/21 10/10/21 Unknown Rx AtorvaSTATin [Lipitor] 40 mg PO DAILY 09/01/21 10/10/21 08/31/21 History 1 tab Clopidogrel [Plavix] 75 mg PO QDAY #90 tablet 09/01/21 10/10/21 Unknown Rx Gabapentin 100 mg PO BID 09/01/21 10/10/21 08/31/21 History 2 tabs Pantoprazole [Protonix] 40 mg PO QDAY #90 tablet 09/01/21 10/10/21 Unknown Rx amLODIPine 5 mg PO DAILY 09/01/21 10/10/21 08/31/21 History 1 tab carvediloL [Coreg] 25 mg PO BID 09/01/21 10/10/21 08/31/21 History 2 tabs cilostazoL [Pletal] 50 mg PO BID 09/01/21 10/10/21 08/31/21 History 2 tabs traZODone [Desyrel] 100 mg PO QHS 09/01/21 10/10/21 08/31/21 History 1 tab Venlafaxine [Effexor] 75 mg PO DAILY 11/02/21 11/02/21 Unknown History Active Medications: Generic Name Dose Route Start Last Admin Trade Name Freq PRN Reason Stop Dose Admin Acetaminophen 650 mg 11/30/21 19:24 Acetaminophen 325 Mg Tab PO Q4H PRN Pain MILD(1-3)/Fever >100.5/GONZALEZ Cilostazol 50 mg 12/01/21 22:00 12/03/21 09:06 Cilostazol 100 Mg Tab PO 50 mg BID SRAVAN Administration Docusate Sodium 100 mg 12/01/21 22:00 12/03/21 09:06 Docusate Sodium 100 Mg Cap PO 100 mg BID SRAVAN Administration Gabapentin 100 mg 12/01/21 22:00 12/03/21 09:07 Gabapentin 100 Mg Cap PO 100 mg BID SRAVAN Administration Hydromorphone HCl 0.5 mg 12/01/21 10:42 12/02/21 02:13 Hydromorphone 1 Mg/1 Ml Inj IV 0.5 mg Q4H PRN Administration Pain , Severe (7-10) NORepinephrine/NS 8 MG-250 ML 8 mg in 250 mls @ 3.75 mls/hr 11/30/21 17:00 12/01/21 16:31 Norepinephrine/Ns 8 Mg-250 Ml (Double Conc) IV 0 mcg/min TITRATE SRAVAN 0 mls/hr Titration Protocol 2 MCG/MIN Cefepime HCl 2 gm in 100 mls @ 200 mls/hr 12/01/21 10:00 12/03/21 10:23 Cefepime/Ns 2 Gm/100 Ml IV 200 mls/hr Q12H SRAVAN Administration Protocol Vancomycin HCl 1 gm in 250 mls @ 167.007 mls/hr 12/01/21 22:00 12/02/21 21:26 Vancomycin/Ns 1 Gm/250 Ml IV 167.007 mls/hr Q24H SRAVAN Administration Ondansetron HCl 4 mg 11/30/21 19:24 Ondansetron 4 Mg/2 Ml Inj IV Q8H PRN Nausea And Vomiting Oxycodone/Acetaminophen 2 tab 12/02/21 11:44 12/03/21 10:16 Oxycodone /Acetaminophen 5-325mg Tab PO 2 tab Q8H PRN Administration Pain, Moderate (4-6) Pantoprazole Sodium 40 mg 12/01/21 20:00 12/03/21 09:06 Pantoprazole 40 Mg Tab PO 40 mg QDAY SRAVAN Administration Sodium Chloride 10 ml 11/30/21 22:00 12/03/21 09:07 Sodium Chloride 0.9% 10 Ml Flush Syringe IV 10 ml BID SRAVAN Administration Sodium Chloride 10 ml 11/30/21 19:24 Sodium Chloride 0.9% 10 Ml Flush Syringe IV PRN PRN LINE FLUSH Trazodone HCl 100 mg 12/01/21 22:00 12/02/21 21:26 Trazodone 100 Mg Tab PO 100 mg QHS SRAVAN Administration Venlafaxine HCl 75 mg 12/01/21 20:00 12/03/21 09:06 Venlafaxine 75 Mg Tab PO 75 mg DAILY SRAVAN Administration HEART Score - HEART Score Troponin: Troponin T 0.119 ng/mL (0.00-0.029) H* 11/30/21 15:56
--- NOTE | 2021-12-03 13:28 | Progress Note ---
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 I discussed with the patient the need for excision of the graft and coverage of her femoral artery with a sartorius muscle flap. The patient ask if the antibiotics could treat the graft and I explained that this was not an option to effectively treat the graft infection and that the only option to treat the graft would be removal. She asked what the consequences would be if she chose not to undergo surgery. I explained that she could either become septic and potentially from sepsis or have a potential blowout of the femoral anastomosis and potentially from hemorrhage. The patient expressed understanding of the risk of surgery as well as the risk of not undergoing surgery and has not made a decision at this time. I will still proceed with making her n.p.o. after midnight as well as transfusing 2 units of packed red blood cells in anticipation of the surgery tomorrow. I advised her to inform the nurse if she would like to undergo the surgery as the consent has been placed on the chart. Subjective Date of service: 12/03/21 Interval history: Patient without complaints or significant events overnight. Objective - Constitutional Vitals: Vital Signs - 12hr 12/03/21 12/03/21 12/03/21 01:30 01:45 02:00 Temperature Pulse Rate 85 86 85 Pulse Rate [ From Monitor] Respiratory 10 L 13 9 L Rate Blood Pressure 100/47 100/47 96/49 O2 Sat by Pulse 92 92 92 Oximetry 12/03/21 12/03/21 12/03/21 02:15 02:30 02:45 Temperature Pulse Rate 85 79 84 Pulse Rate [ From Monitor] Respiratory 15 10 L 11 L Rate Blood Pressure 96/49 99/48 96/49 O2 Sat by Pulse 92 93 93 Oximetry 12/03/21 12/03/21 12/03/21 03:00 03:15 03:30 Temperature Pulse Rate 82 82 87 Pulse Rate [ From Monitor] Respiratory 10 L 10 L 13 Rate Blood Pressure 91/45 99/48 117/63 O2 Sat by Pulse 94 93 92 Oximetry 12/03/21 12/03/21 12/03/21 03:45 04:00 04:15 Temperature 99.3 F Pulse Rate 81 85 79 Pulse Rate [ 85 From Monitor] Respiratory 10 L 10 L 11 L Rate Blood Pressure 117/63 109/60 109/60 O2 Sat by Pulse 95 95 96 Oximetry 12/03/21 12/03/21 12/03/21 04:30 04:45 05:00 Temperature Pulse Rate 79 81 84 Pulse Rate [ From Monitor] Respiratory 10 L 11 L 13 Rate Blood Pressure 102/55 102/55 102/55 O2 Sat by Pulse 95 95 93 Oximetry 12/03/21 12/03/21 12/03/21 05:15 05:30 05:45 Temperature Pulse Rate 83 81 83 Pulse Rate [ From Monitor] Respiratory 11 L 11 L 13 Rate Blood Pressure 94/50 109/55 94/50 O2 Sat by Pulse 93 94 96 Oximetry 12/03/21 12/03/21 12/03/21 06:00 06:15 06:30 Temperature Pulse Rate 79 83 91 H Pulse Rate [ From Monitor] Respiratory 11 L 11 L 11 L Rate Blood Pressure 111/54 111/54 97/70 O2 Sat by Pulse 95 96 94 Oximetry 12/03/21 12/03/21 12/03/21 06:45 07:00 07:15 Temperature Pulse Rate 88 87 86 Pulse Rate [ From Monitor] Respiratory 17 16 12 Rate Blood Pressure 97/70 123/60 97/70 O2 Sat by Pulse 93 93 93 Oximetry 12/03/21 12/03/21 12/03/21 07:30 07:45 07:49 Temperature 98.9 F Pulse Rate 88 89 Pulse Rate [ From Monitor] Respiratory 14 14 Rate Blood Pressure 119/59 119/59 O2 Sat by Pulse 94 92 Oximetry 12/03/21 12/03/21 12/03/21 08:00 08:15 08:30 Temperature Pulse Rate 91 H 92 H 96 H Pulse Rate [ 85 From Monitor] Respiratory 12 16 23 Rate Blood Pressure 122/60 122/60 135/65 O2 Sat by Pulse 92 93 93 Oximetry 12/03/21 12/03/21 12/03/21 08:45 09:00 09:15 Temperature Pulse Rate 92 H 94 H Pulse Rate [ From Monitor] Respiratory 25 H 21 Rate Blood Pressure 135/65 134/63 134/63 O2 Sat by Pulse 93 99 99 Oximetry 12/03/21 12/03/21 12/03/21 09:31 09:45 10:00 Temperature Pulse Rate 95 H 93 H 95 H Pulse Rate [ From Monitor] Respiratory 21 15 20 Rate Blood Pressure 139/55 139/55 117/65 O2 Sat by Pulse 97 98 96 Oximetry 12/03/21 12/03/21 12/03/21 10:15 10:30 10:45 Temperature Pulse Rate 97 H 99 H 94 H Pulse Rate [ From Monitor] Respiratory 22 20 13 Rate Blood Pressure 117/65 111/66 111/66 O2 Sat by Pulse 99 95 92 Oximetry 12/03/21 12/03/21 12/03/21 11:01 11:15 11:30 Temperature Pulse Rate 95 H 92 H 90 Pulse Rate [ From Monitor] Respiratory 11 L 12 10 L Rate Blood Pressure 111/48 111/48 93/50 O2 Sat by Pulse 93 93 91 Oximetry 12/03/21 12/03/21 12/03/21 11:45 11:52 12:00 Temperature 98.4 F Pulse Rate 88 85 Pulse Rate [ 85 From Monitor] Respiratory 11 L 9 L Rate Blood Pressure 93/50 87/43 O2 Sat by Pulse 94 95 Oximetry - Cardiovascular Rhythm: regular Extremities: no ischemia, normal temperature Extremity abnormal: edema (Edema of left lower extremity), pulses diminished (Nonpalpable pedal pulses with Doppler signals present) - Labs CBC & Chem 7: 12/03/21 04:24 12/03/21 04:24 Labs: Abnormal lab results 11/30/21 12/03/21 12/03/21 Range/Units 17:23 04:24 04:24 RBC 2.86 L (3.65-5.03) M/mm3 Hgb 8.0 L (10.1-14.3) gm/dl Hct 24.5 L (30.3-42.9) % RDW 16.0 H (13.2-15.2) % Potassium 3.4 L (3.6-5.0) mmol/L BUN 6 L (7-17) mg/dL Creatinine 0.5 L (0.6-1.2) mg/dL Calcium 7.9 L (8.4-10.2) mg/dL Phosphorus 5.20 H D (2.5-4.5) mg/dL Crossmatch See Detail Medications & Allergies - Medications Allergies/Adverse Reactions: Allergies No Known Allergies Allergy (Verified 10/20/21 09:17) Home Medications: Home Medications Medication Instructions Recorded Confirmed Last Taken Type Apixaban [Eliquis] 2.5 mg PO Q12HR #60 tab 09/01/21 10/10/21 Unknown Rx AtorvaSTATin [Lipitor] 40 mg PO DAILY 09/01/21 10/10/21 08/31/21 History 1 tab Clopidogrel [Plavix] 75 mg PO QDAY #90 tablet 09/01/21 10/10/21 Unknown Rx Gabapentin 100 mg PO BID 09/01/21 10/10/21 08/31/21 History 2 tabs Pantoprazole [Protonix] 40 mg PO QDAY #90 tablet 09/01/21 10/10/21 Unknown Rx amLODIPine 5 mg PO DAILY 09/01/21 10/10/21 08/31/21 History 1 tab carvediloL [Coreg] 25 mg PO BID 09/01/21 10/10/21 08/31/21 History 2 tabs cilostazoL [Pletal] 50 mg PO BID 09/01/21 10/10/21 08/31/21 History 2 tabs traZODone [Desyrel] 100 mg PO QHS 09/01/21 10/10/21 08/31/21 History 1 tab Venlafaxine [Effexor] 75 mg PO DAILY 11/02/21 11/02/21 Unknown History Active Medications: Generic Name Dose Route Start Last Admin Trade Name Freq PRN Reason Stop Dose Admin Acetaminophen 650 mg 11/30/21 19:24 Acetaminophen 325 Mg Tab PO Q4H PRN Pain MILD(1-3)/Fever >100.5/GONZALEZ Cilostazol 50 mg 12/01/21 22:00 12/03/21 09:06 Cilostazol 100 Mg Tab PO 50 mg BID SRAVAN Administration Docusate Sodium 100 mg 12/01/21 22:00 12/03/21 09:06 Docusate Sodium 100 Mg Cap PO 100 mg BID SRAVAN Administration Gabapentin 100 mg 12/01/21 22:00 12/03/21 09:07 Gabapentin 100 Mg Cap PO 100 mg BID SRAVAN Administration Hydromorphone HCl 0.5 mg 12/01/21 10:42 12/02/21 02:13 Hydromorphone 1 Mg/1 Ml Inj IV 0.5 mg Q4H PRN Administration Pain , Severe (7-10) NORepinephrine/NS 8 MG-250 ML 8 mg in 250 mls @ 3.75 mls/hr 11/30/21 17:00 12/01/21 16:31 Norepinephrine/Ns 8 Mg-250 Ml (Double Conc) IV 0 mcg/min TITRATE SRAVAN 0 mls/hr Titration Protocol 2 MCG/MIN Cefepime HCl 2 gm in 100 mls @ 200 mls/hr 12/01/21 10:00 12/03/21 10:23 Cefepime/Ns 2 Gm/100 Ml IV 200 mls/hr Q12H SRAVAN Administration Protocol Vancomycin HCl 1 gm in 250 mls @ 167.007 mls/hr 12/01/21 22:00 12/02/21 21:26 Vancomycin/Ns 1 Gm/250 Ml IV 167.007 mls/hr Q24H SRAVAN Administration Sodium Chloride 500 mls @ 0 mls/hr 12/03/21 13:22 Nacl 0.9% 500 Ml IV 12/03/21 13:23 ONCE ONE As Directed Ondansetron HCl 4 mg 11/30/21 19:24 Ondansetron 4 Mg/2 Ml Inj IV Q8H PRN Nausea And Vomiting Oxycodone/Acetaminophen 2 tab 12/02/21 11:44 12/03/21 10:16 Oxycodone /Acetaminophen 5-325mg Tab PO 2 tab Q8H PRN Administration Pain, Moderate (4-6) Pantoprazole Sodium 40 mg 12/01/21 20:00 12/03/21 09:06 Pantoprazole 40 Mg Tab PO 40 mg QDAY SRAVAN Administration Sodium Chloride 10 ml 11/30/21 22:00 12/03/21 09:07 Sodium Chloride 0.9% 10 Ml Flush Syringe IV 10 ml BID SRAVAN Administration Sodium Chloride 10 ml 11/30/21 19:24 Sodium Chloride 0.9% 10 Ml Flush Syringe IV PRN PRN LINE FLUSH Trazodone HCl 100 mg 12/01/21 22:00 12/02/21 21:26 Trazodone 100 Mg Tab PO 100 mg QHS SRAVAN Administration Venlafaxine HCl 75 mg 12/01/21 20:00 12/03/21 09:06 Venlafaxine 75 Mg Tab PO 75 mg DAILY SRAVAN Administration HEART Score - HEART Score Troponin: Troponin T 0.119 ng/mL (0.00-0.029) H* 11/30/21 15:56
[2021-12-03] MEDS ORDERED: SODIUM CHLORIDE 0.9% 500 ML 500 ML IV NR (14:00)
--- NOTE | 2021-12-03 15:08 | Electrocardiograph Report ---
[facility] Test Date: 2021-11-30 Test Time: 17:58:35 Pat Name: TIMMY SIDDIQUI Department: Room: A262 1 Gender: F [employer]: [birth year] : 1965 Requested By: ROSEMARIE LERMA Order Number: [id number] Reading MD: Kiana Stevenson Measurements Intervals [place] Rate: 86 P: 148 [place]: 66 QRS: 146 QRSD: 80 T: 148 QT: 417 QTc: 500 Interpretive Statements TECHNICALLY POOR TRACING - PLEASE REPEAT ECG Electronically Signed On 12-03-2021 15:08:21 EDT by Kiana Stevenson
[2021-12-03] MEDS: traZODone 100 MG TAB PO SCH (22:53)
[2021-12-03] MEDS: VANCOMYCIN/NS 1 GM/250 ML 1 GM/250 ML BAG IV SCH (22:55)
[2021-12-03] MEDS: HYDROmorphone 1 MG/1 ML INJ IV PRN (23:00)
[2021-12-03] MEDS: ONDANSETRON 4 MG/2 ML INJ IV PRN (23:34)
[2021-12-04 05:18] LABS: INR 1.05 (0.87-1.13)
[2021-12-04 05:27] LABS: Basophils # (Auto) 0.1 K/mm3 (0.0-0.1); Eosinophils # (Auto) 0.2 K/mm3 (0.0-0.4); Eosinophils % (Auto) 1.6 % (0.0-4.3); Hemoglobin 11.1 gm/dl (10.1-14.3); Mean Corpuscular HGB Conc 34 % (30-34); Mean Corpuscular Volume 86 fl (79-97); Monocytes # (Auto) 0.8 K/mm3 (0.0-0.8); Monocytes % (Auto) 6.6 % (0.0-7.3); Platelet Count 291 K/mm3 (140-440); Red Blood Count 3.86 M/mm3 (3.65-5.03); Red Cell Distribution Width 15.5 % (13.2-15.2)
[2021-12-04 05:28] LABS: Blood Urea Nitrogen 6 mg/dL (7-17); Calcium 8.4 mg/dL (8.4-10.2); Hemolysis Index 5
[2021-12-04 05:35] LABS: BUN/Creatinine Ratio 12
[2021-12-04] MEDS: HYDROmorphone 1 MG/1 ML INJ IV PRN ×3 (08:07→22:57)
--- NOTE | 2021-12-04 08:54 | Progress Note ---
Assessment and Plan 56 y/o female with known PVD, admitted with hypotension, likely from sepsis, possibly related to lower ext. 12/04/21: clinically stable. Will continue to follow through surgery. 12/03/21: Will need graft removed. Follow up vascular recs. Agree with step down 12/02/21: Will get CT of limb with contrast today. Pain control. IVF's. If bed needed, please move to step down, not floor. 1. Reviewed ID note 2 Continue abx 3. Follow up vascular recs 4. More fluid resuscitation, need to get patient off pressors. 5. Guarded prognosis. CCT 31 minutes. Subjective Date of service: 12/04/21 Interval history: No acute events. Stable in step down. NPO today for possible graft removal. Stable pulm status. Objective - Constitutional Vitals: Vital Signs - 12hr 12/03/21 12/03/21 12/03/21 21:00 21:30 22:00 Temperature Pulse Rate 96 H 89 88 Pulse Rate [ From Monitor] Respiratory 18 16 17 Rate Blood Pressure 106/49 111/59 113/57 O2 Sat by Pulse 94 96 96 Oximetry 12/03/21 12/03/21 12/03/21 22:30 23:00 23:01 Temperature Pulse Rate 86 88 Pulse Rate [ From Monitor] Respiratory 13 12 18 Rate Blood Pressure 103/56 107/65 O2 Sat by Pulse 96 98 Oximetry 12/03/21 12/04/21 12/04/21 23:30 00:00 00:01 Temperature 98.1 F Pulse Rate 84 87 Pulse Rate [ 87 From Monitor] Respiratory 13 22 22 Rate Blood Pressure 125/64 109/59 O2 Sat by Pulse 94 92 92 Oximetry 12/04/21 12/04/21 12/04/21 00:30 01:00 01:30 Temperature Pulse Rate 83 82 84 Pulse Rate [ From Monitor] Respiratory 15 10 L 31 H Rate Blood Pressure 101/50 98/52 121/54 O2 Sat by Pulse 96 94 Oximetry 12/04/21 12/04/21 12/04/21 02:00 02:30 03:00 Temperature Pulse Rate 85 85 87 Pulse Rate [ From Monitor] Respiratory 36 H 24 16 Rate Blood Pressure 119/56 110/52 107/56 O2 Sat by Pulse 94 96 97 Oximetry 12/04/21 12/04/21 12/04/21 03:30 03:45 04:01 Temperature Pulse Rate 88 98 H 98 H Pulse Rate [ From Monitor] Respiratory 13 17 Rate Blood Pressure 130/61 151/71 O2 Sat by Pulse 96 94 Oximetry 12/04/21 12/04/21 12/04/21 04:30 05:00 05:30 Temperature Pulse Rate 96 H 96 H 97 H Pulse Rate [ From Monitor] Respiratory 20 19 18 Rate Blood Pressure 162/72 141/69 129/58 O2 Sat by Pulse 96 92 91 Oximetry 12/04/21 12/04/21 12/04/21 06:00 06:30 07:00 Temperature 100 F H Pulse Rate 96 H 102 H 101 H Pulse Rate [ From Monitor] Respiratory 13 13 19 Rate Blood Pressure 124/55 138/59 132/60 O2 Sat by Pulse 93 88 91 Oximetry 12/04/21 12/04/21 07:31 08:00 Temperature 97.4 F L Pulse Rate 113 H 100 H Pulse Rate [ 100 H From Monitor] Respiratory 22 18 Rate Blood Pressure 141/79 133/61 O2 Sat by Pulse 95 93 Oximetry - Labs CBC & Chem 7: 12/04/21 04:35 12/04/21 04:35 Labs: Abnormal lab results 11/30/21 12/03/21 12/04/21 Range/Units 17:23 14:07 04:35 WBC 12.9 H (4.5-11.0) K/mm3 RDW 15.5 H (13.2-15.2) % Lymph % (Auto) 8.0 L (13.4-35.0) % Lymph # (Auto) 1.0 L (1.2-5.4) K/mm3 Seg Neutrophils % 83.4 H (40.0-70.0) % Seg Neutrophils # 10.8 H (1.8-7.7) K/mm3 BUN (7-17) mg/dL Creatinine (0.6-1.2) mg/dL Crossmatch See Detail See Detail 12/04/21 Range/Units 04:35 WBC (4.5-11.0) K/mm3 RDW (13.2-15.2) % Lymph % (Auto) (13.4-35.0) % Lymph # (Auto) (1.2-5.4) K/mm3 Seg Neutrophils % (40.0-70.0) % Seg Neutrophils # (1.8-7.7) K/mm3 BUN 6 L (7-17) mg/dL Creatinine 0.5 L (0.6-1.2) mg/dL Crossmatch Medications & Allergies - Medications Allergies/Adverse Reactions: Allergies No Known Allergies Allergy (Verified 10/20/21 09:17) Home Medications: Home Medications Medication Instructions Recorded Confirmed Last Taken Type Apixaban [Eliquis] 2.5 mg PO Q12HR #60 tab 09/01/21 10/10/21 Unknown Rx AtorvaSTATin [Lipitor] 40 mg PO DAILY 09/01/21 10/10/21 08/31/21 History 1 tab Clopidogrel [Plavix] 75 mg PO QDAY #90 tablet 09/01/21 10/10/21 Unknown Rx Gabapentin 100 mg PO BID 09/01/21 10/10/21 08/31/21 History 2 tabs Pantoprazole [Protonix] 40 mg PO QDAY #90 tablet 09/01/21 10/10/21 Unknown Rx amLODIPine 5 mg PO DAILY 09/01/21 10/10/21 08/31/21 History 1 tab carvediloL [Coreg] 25 mg PO BID 09/01/21 10/10/21 08/31/21 History 2 tabs cilostazoL [Pletal] 50 mg PO BID 09/01/21 10/10/21 08/31/21 History 2 tabs traZODone [Desyrel] 100 mg PO QHS 09/01/21 10/10/21 08/31/21 History 1 tab Venlafaxine [Effexor] 75 mg PO DAILY 11/02/21 11/02/21 Unknown History Active Medications: Generic Name Dose Route Start Last Admin Trade Name Freq PRN Reason Stop Dose Admin Acetaminophen 650 mg 11/30/21 19:24 Acetaminophen 325 Mg Tab PO Q4H PRN Pain MILD(1-3)/Fever >100.5/GONZALEZ Cilostazol 50 mg 12/01/21 22:00 12/03/21 22:59 Cilostazol 100 Mg Tab PO 50 mg BID SRAVAN Administration Docusate Sodium 100 mg 12/01/21 22:00 12/03/21 22:54 Docusate Sodium 100 Mg Cap PO 100 mg BID SRAVAN Administration Gabapentin 100 mg 12/01/21 22:00 12/03/21 22:53 Gabapentin 100 Mg Cap PO 100 mg BID SRAVAN Administration Hydromorphone HCl 0.5 mg 12/01/21 10:42 12/04/21 08:07 Hydromorphone 1 Mg/1 Ml Inj IV 0.5 mg Q4H PRN Administration Pain , Severe (7-10) Cefepime HCl 2 gm in 100 mls @ 200 mls/hr 12/01/21 10:00 12/03/21 22:53 Cefepime/Ns 2 Gm/100 Ml IV 200 mls/hr Q12H SRAVAN Administration Protocol Vancomycin HCl 1 gm in 250 mls @ 167.007 mls/hr 12/01/21 22:00 12/03/21 22:55 Vancomycin/Ns 1 Gm/250 Ml IV 167.007 mls/hr Q24H SRAVAN Administration Ondansetron HCl 4 mg 11/30/21 19:24 12/03/21 23:34 Ondansetron 4 Mg/2 Ml Inj IV 4 mg Q8H PRN Administration Nausea And Vomiting Oxycodone/Acetaminophen 2 tab 12/02/21 11:44 12/03/21 18:09 Oxycodone /Acetaminophen 5-325mg Tab PO 2 tab Q8H PRN Administration Pain, Moderate (4-6) Pantoprazole Sodium 40 mg 12/01/21 20:00 12/03/21 09:06 Pantoprazole 40 Mg Tab PO 40 mg QDAY SRAVAN Administration Sodium Chloride 10 ml 11/30/21 22:00 12/03/21 22:54 Sodium Chloride 0.9% 10 Ml Flush Syringe IV 10 ml BID SRAVAN Administration Sodium Chloride 10 ml 11/30/21 19:24 Sodium Chloride 0.9% 10 Ml Flush Syringe IV PRN PRN LINE FLUSH Trazodone HCl 100 mg 12/01/21 22:00 12/03/21 22:53 Trazodone 100 Mg Tab PO 100 mg QHS SRAVAN Administration Venlafaxine HCl 75 mg 12/01/21 20:00 12/03/21 09:06 Venlafaxine 75 Mg Tab PO 75 mg DAILY SRAVAN Administration HEART Score - HEART Score Troponin: Troponin T 0.119 ng/mL (0.00-0.029) H* 11/30/21 15:56
--- NOTE | 2021-12-04 09:14 | Progress Note ---
Assessment and Plan Assessment and plan: History Interval history: This is a 56-year-old female with severe PVD, CAD, HTN, HLD, anemia, EtOH and tobacco abuse who is s/p left femoral to below the knee popliteal artery bypass complicated by compartment syndrome s/p fasciotomy and right leg revascularizati on who was discharged to SNF after almost 3 week stay via EMS for altered mental status and was hypoentive in ED despite fluid resuscitation was eventually started on Levophed with a placement of central line. Patient was also anemic with a hemoglobin of 6.2 and 1 unit PRBC was transfused. She also had leukocytosis, acute kidney injury, elevated troponin and purulent drainage from wounds. Patient was admitted to the hospital service with consult to vascular surgery, ID and CCM with Sepsis. Hospital course to date: 12/01: Additional LR boluses, KCL 40 PO, prn diludid given for pain. Wean levophed as tolerated. 12/02: Adjustment to pain regimen, CTA pelvis and lower extremities with contrast obtained. Phosphorus and magnesium repleted 12/03: No vascular interventions till Saturday/Saturday. Pain better controlled. No acute events overnight. Transfer to [facility] 12/04: OR today for surgery by IR. Am labs ordered. Assessment and Plan: Neuro: h/o EtOH abuse, neuropathy -Reorientation as needed -Maintain sleep-wake cycle -As needed analgesia Cardiac: h/o HTN, HLD, CAD -Blood pressure monitoring per protocol -s/p vasopressor support with levophed Respiratory: h/o nicotine abuse -CCM consulted, appreciate recommendations -Pulmonary hygiene -SPO2 monitoring -Supplemental oxygen as needed GI: Moderate Protein calorie malnutrition -24 hour -750 mL -Regular diet with nutritional supplementation -PPI -BR: colace : Acute kidney injury secondary to vasomotor nephropathy, Hypokalemia -Monitor intake and output -Renally dose medications -Avoid nephrotoxic medications -Replete K -Trend BMP ID: Septic shock (POA), leukocytosis -Presented with leukocytosis, acute kidney injury, purulent drainage from leg wounds -Infectious disease consulted, appreciate recommendations -Antibiotic therapy with cefepime and vancomycin -WOCN consulted for wound care -f/u blood culture -Monitor WBC and temperature curve Endo: NAD -Avoid hypoglycemia Vascular/Heme: Acute Anemia, Severe PVD s/p left femoral to below-knee popliteal artery bypass with fasciotomy, right lower extremity vascularization -Vascular surgery consulted, appreciate recommendations -Admit h/h 6.2/19.2 -s/p 2 units PRBC -CTA BLE shows air within the left femoral to popliteal artery bypass graft as well as in fluid collections along the graft. -Per vascular surgery: the patient will require excision of the graft, coverage of her common femoral artery with a sartorious muscle flap, and closure of the distal popliteal artery with a vein patch. The proximal anastamosis is sewn to a vein and can be closed, primarily, after excising the graft from the artery. This can be performed on Saturday or Saturday. -Trend CBC -Transfuse hemoglobin less than 7 The high probability of a clinically significant, sudden or life threatening deterioration of the [multi] system(s) required my full and direct attention, intervention and personal management. The aggregate critical care time was [60] minutes. This time is in addition to time spent performing reported procedures but includes the following: [x] Data Review and interpretation [x] Patient assessment and monitoring of vital signs [x] Documentation [x] Medication orders and management Total Time Spent with Patient (Minutes): 60 History Interval history: no acute complaints. Plan for surgery today. Hospitalist Physical - Constitutional Vitals: Temp Pulse Resp BP Pulse Ox 97.4 F L 100 H 22 133/61 92 12/04/21 08:00 12/04/21 08:00 12/04/21 08:00 12/04/21 08:00 12/04/21 08:00 General appearance: Present: no acute distress HEART Score - HEART Score Troponin: Troponin T 0.119 ng/mL (0.00-0.029) H* 11/30/21 15:56 Results - Labs CBC & Chem 7: 12/04/21 04:35 12/04/21 04:35 Labs: Laboratory Last Values WBC 12.9 K/mm3 (4.5-11.0) H 12/04/21 04:35 RBC 3.86 M/mm3 (3.65-5.03) 12/04/21 04:35 Hgb 11.1 gm/dl (10.1-14.3) D 12/04/21 04:35 Hct 33.0 % (30.3-42.9) D 12/04/21 04:35 MCV 86 fl (79-97) 12/04/21 04:35 MCH 29 pg (28-32) 12/04/21 04:35 MCHC 34 % (30-34) 12/04/21 04:35 RDW 15.5 % (13.2-15.2) H 12/04/21 04:35 Plt Count 291 K/mm3 (140-440) 12/04/21 04:35 Lymph % (Auto) 8.0 % (13.4-35.0) L 12/04/21 04:35 Wilson % (Auto) 6.6 % (0.0-7.3) 12/04/21 04:35 Eos % (Auto) 1.6 % (0.0-4.3) 12/04/21 04:35 Baso % (Auto) [employer] 12/04/21 04:35 Lymph # (Auto) 1.0 K/mm3 (1.2-5.4) L 12/04/21 04:35 Wilson # (Auto) 0.8 K/mm3 (0.0-0.8) 12/04/21 04:35 Eos # (Auto) 0.2 K/mm3 (0.0-0.4) 12/04/21 04:35 Baso # (Auto) 0.1 K/mm3 (0.0-0.1) 12/04/21 04:35 Add Manual Diff Complete 12/01/21 04:33 Total Counted 100 12/01/21 04:33 Seg Neutrophils % 83.4 % (40.0-70.0) H 12/04/21 04:35 Seg Neuts % (Manual) 82.0 % (40.0-70.0) H 12/01/21 04:33 Band Neutrophils % 8.0 % 12/01/21 04:33 Lymphocytes % (Manual) 5.0 % (13.4-35.0) L 12/01/21 04:33 Reactive Lymphs % (Man) 0 % 12/01/21 04:33 Monocytes % (Manual) 4.0 % (0.0-7.3) 12/01/21 04:33 Eosinophils % (Manual) 0 % (0.0-4.3) 12/01/21 04:33 Basophils % (Manual) 0 % (0.0-1.8) 12/01/21 04:33 Metamyelocytes % 1.0 % 12/01/21 04:33 Myelocytes % 0 % 12/01/21 04:33 Promyelocytes % 0 % 12/01/21 04:33 Blast Cells % 0 % 12/01/21 04:33 Nucleated RBC % Not Reportable 12/01/21 04:33 Seg Neutrophils # 10.8 K/mm3 (1.8-7.7) H 12/04/21 04:35 Seg Neutrophils # Man 17.0 K/mm3 (1.8-7.7) H 12/01/21 04:33 Band Neutrophils # 1.7 K/mm3 12/01/21 04:33 Lymphocytes # (Manual) 1.0 K/mm3 (1.2-5.4) L 12/01/21 04:33 Abs React Lymphs (Man) 0.0 K/mm3 12/01/21 04:33 Monocytes # (Manual) 0.8 K/mm3 (0.0-0.8) 12/01/21 04:33 Eosinophils # (Manual) 0.0 K/mm3 (0.0-0.4) 12/01/21 04:33 Basophils # (Manual) 0.0 K/mm3 (0.0-0.1) 12/01/21 04:33 Metamyelocytes # 0.2 K/mm3 12/01/21 04:33 Myelocytes # 0.0 K/mm3 12/01/21 04:33 Promyelocytes # 0.0 K/mm3 12/01/21 04:33 Blast Cells # 0.0 K/mm3 12/01/21 04:33 WBC Morphology Not Reportable 12/01/21 04:33 Hypersegmented Neuts Not Reportable 12/01/21 04:33 Hyposegmented Neuts Not Reportable 12/01/21 04:33 Hypogranular Neuts Not Reportable 12/01/21 04:33 Smudge Cells Not Reportable 12/01/21 04:33 Toxic Granulation Not Reportable 12/01/21 04:33 Toxic Vacuolation Not Reportable 12/01/21 04:33 Dohle Bodies Not Reportable 12/01/21 04:33 Pelger-Huet Anomaly Not Reportable 12/01/21 04:33 Mary Rods Not Reportable 12/01/21 04:33 Platelet Estimate Consistent w auto 12/01/21 04:33 Clumped Platelets Not Reportable 12/01/21 04:33 Plt Clumps, EDTA Not Reportable 12/01/21 04:33 Large Platelets Not Reportable 12/01/21 04:33 Giant Platelets Not Reportable 12/01/21 04:33 Platelet Satelliting Not Reportable 12/01/21 04:33 Plt Morphology Comment Not Reportable 12/01/21 04:33 RBC Morphology Not Reportable 12/01/21 04:33 Dimorphic RBCs Not Reportable 12/01/21 04:33 Polychromasia Not Reportable 12/01/21 04:33 Hypochromasia 2+ 12/01/21 04:33 Poikilocytosis Few 12/01/21 04:33 Anisocytosis 1+ 12/01/21 04:33 Microcytosis 1+ 12/01/21 04:33 Macrocytosis Not Reportable 12/01/21 04:33 Spherocytes Not Reportable 12/01/21 04:33 Pappenheimer Bodies Not Reportable 12/01/21 04:33 Sickle Cells Not Reportable 12/01/21 04:33 Target Cells Not Reportable 12/01/21 04:33 Tear Drop Cells Not Reportable 12/01/21 04:33 Ovalocytes Few 12/01/21 04:33 Helmet Cells Not Reportable 12/01/21 04:33 Ybarra-Difficult Run Bodies Not Reportable 12/01/21 04:33 [place] Rings Not Reportable 12/01/21 04:33 Syeda Cells Not Reportable 12/01/21 04:33 Bite Cells Not Reportable 12/01/21 04:33 Crenated Cell Not Reportable 12/01/21 04:33 Elliptocytes Rare 12/01/21 04:33 Acanthocytes (Spur) Not Reportable 12/01/21 04:33 Rouleaux Not Reportable 12/01/21 04:33 Hemoglobin C Crystals Not Reportable 12/01/21 04:33 Schistocytes Not Reportable 12/01/21 04:33 Malaria parasites Not Reportable 12/01/21 04:33 Kvng Bodies Not Reportable 12/01/21 04:33 Hem Pathologist Commnt No 12/01/21 04:33 PT 14.9 Sec. (12.2-14.9) 12/04/21 04:35 INR 1.05 (0.87-1.13) 12/04/21 04:35 APTT 43.1 Sec. (24.2-36.6) H 11/30/21 15:56 VBG pH 7.509 (7.320-7.420) H 11/30/21 15:57 Sodium 137 mmol/L (137-145) 12/04/21 04:35 Potassium 4.1 mmol/L (3.6-5.0) D 12/04/21 04:35 Chloride 103.8 mmol/L (98-107) 12/04/21 04:35 Carbon Dioxide 22 mmol/L (22-30) 12/04/21 04:35 Anion Gap 15 mmol/L 12/04/21 04:35 BUN 6 mg/dL (7-17) L 12/04/21 04:35 Creatinine 0.5 mg/dL (0.6-1.2) L 12/04/21 04:35 Estimated GFR > 60 ml/min 12/04/21 04:35 BUN/Creatinine Ratio 12 % 12/04/21 04:35 Glucose 94 mg/dL (65-100) 12/04/21 04:35 Lactic Acid 1.20 mmol/L (0.7-2.0) 11/30/21 17:23 Calcium 8.4 mg/dL (8.4-10.2) 12/04/21 04:35 Phosphorus 5.20 mg/dL (2.5-4.5) H D 12/03/21 04:24 Magnesium 1.80 mg/dL (1.7-2.3) 12/03/21 04:24 Total Bilirubin 0.40 mg/dL (0.1-1.2) 11/30/21 15:56 AST 16 units/L (5-40) 11/30/21 15:56 ALT 7 units/L (7-56) 11/30/21 15:56 Alkaline Phosphatase 80 units/L (35-129) 11/30/21 15:56 Troponin T 0.119 ng/mL (0.00-0.029) H* 11/30/21 15:56 Total Protein 4.2 g/dL (6.3-8.2) L 11/30/21 15:56 Albumin 2.4 g/dL (3.9-5) L 11/30/21 15:56 Albumin/Globulin Ratio 1.3 % 11/30/21 15:56 Triglycerides 108 mg/dL (2-149) 11/30/21 15:56 Cholesterol 82 mg/dL (50-199) 11/30/21 15:56 LDL Cholesterol Direct 38 mg/dL (50-130) L 11/30/21 15:56 HDL Cholesterol 28 mg/dL (40-59) L 11/30/21 15:56 Cholesterol/HDL Ratio 2.92 % 11/30/21 15:56 TSH 1.870 mlU/mL (0.270-4.200) 11/30/21 15:57 Urine Color Yellow (Yellow) 11/30/21 02:50 Urine Turbidity Clear (Clear) 11/30/21 02:50 Urine pH 6.0 (5.0-7.0) 11/30/21 02:50 Ur Specific [place] 1.005 (1.003-1.030) 11/30/21 02:50 Urine Protein <15 mg/dl mg/dL (Negative) 11/30/21 02:50 Urine Glucose (UA) Neg mg/dL (Negative) 11/30/21 02:50 Urine Ketones Neg mg/dL (Negative) 11/30/21 02:50 Urine Blood Sm (Negative) 11/30/21 02:50 Urine Nitrite Neg (Negative) 11/30/21 02:50 Urine Bilirubin Neg (Negative) 11/30/21 02:50 Urine Urobilinogen < 2.0 mg/dL (<2.0) 11/30/21 02:50 Ur Leukocyte Esterase Neg (Negative) 11/30/21 02:50 Urine WBC (Auto) 2.0 /HPF (0.0-6.0) 11/30/21 02:50 Urine RBC (Auto) 2.0 /HPF (0.0-6.0) 11/30/21 02:50 U Epithel Cells (Auto) 1.0 /HPF (0-13.0) 11/30/21 02:50 Urine Bacteria (Auto) 1+ /HPF (Negative) 11/30/21 02:50 Urine Yeast (Budding) 1+ /HPF 11/30/21 02:50 Vancomycin Trough 5.3 ug/mL (5.0-20.0) 12/03/21 21:17 Blood Type O POSITIVE 12/03/21 14:07 Antibody Screen Negative 12/03/21 14:07 Crossmatch See Detail 12/03/21 14:07 Microbiology: Microbiology 11/30/21 15:56 Peripheral/Venous Blood Culture - Preliminary NO GROWTH AFTER 72 HOURS 11/30/21 15:56 Peripheral/Venous Blood Culture - Preliminary NO GROWTH AFTER 72 HOURS Victor/IV: Voiding Method External Female Catheter Active Medications - Current Medications Current Medications: Generic Name Dose Route Start Last Admin Trade Name Freq PRN Reason Stop Dose Admin Acetaminophen 650 mg 11/30/21 19:24 Acetaminophen 325 Mg Tab PO Q4H PRN Pain MILD(1-3)/Fever >100.5/GONZALEZ Cilostazol 50 mg 12/01/21 22:00 12/03/21 22:59 Cilostazol 100 Mg Tab PO 50 mg BID SRAVAN Administration Docusate Sodium 100 mg 12/01/21 22:00 12/03/21 22:54 Docusate Sodium 100 Mg Cap PO 100 mg BID SRAVAN Administration Gabapentin 100 mg 12/01/21 22:00 12/03/21 22:53 Gabapentin 100 Mg Cap PO 100 mg BID SRAVAN Administration Hydromorphone HCl 0.5 mg 12/01/21 10:42 12/04/21 08:07 Hydromorphone 1 Mg/1 Ml Inj IV 0.5 mg Q4H PRN Administration Pain , Severe (7-10) Cefepime HCl 2 gm in 100 mls @ 200 mls/hr 12/01/21 10:00 12/03/21 22:53 Cefepime/Ns 2 Gm/100 Ml IV 200 mls/hr Q12H SRAVAN Administration Protocol Vancomycin HCl 1 gm in 250 mls @ 167.007 mls/hr 12/01/21 22:00 12/03/21 22:55 Vancomycin/Ns 1 Gm/250 Ml IV 167.007 mls/hr Q24H SRAVAN Administration Ondansetron HCl 4 mg 11/30/21 19:24 12/03/21 23:34 Ondansetron 4 Mg/2 Ml Inj IV 4 mg Q8H PRN Administration Nausea And Vomiting Oxycodone/Acetaminophen 2 tab 12/02/21 11:44 12/03/21 18:09 Oxycodone /Acetaminophen 5-325mg Tab PO 2 tab Q8H PRN Administration Pain, Moderate (4-6) Pantoprazole Sodium 40 mg 12/01/21 20:00 12/03/21 09:06 Pantoprazole 40 Mg Tab PO 40 mg QDAY SRAVAN Administration Sodium Chloride 10 ml 11/30/21 22:00 12/03/21 22:54 Sodium Chloride 0.9% 10 Ml Flush Syringe IV 10 ml BID SRAVAN Administration Sodium Chloride 10 ml 11/30/21 19:24 Sodium Chloride 0.9% 10 Ml Flush Syringe IV PRN PRN LINE FLUSH Trazodone HCl 100 mg 12/01/21 22:00 12/03/21 22:53 Trazodone 100 Mg Tab PO 100 mg QHS SRAVAN Administration Venlafaxine HCl 75 mg 12/01/21 20:00 12/03/21 09:06 Venlafaxine 75 Mg Tab PO 75 mg DAILY SRAVAN Administration
[2021-12-04] MEDS: CEFEPIME/NS 2 GM/100 ML 2 GM/100 ML BAG IV SCH ×2 (09:56→22:58)
[2021-12-04] MEDS: PANTOPRAZOLE 40 MG TAB PO SCH (09:57)
[2021-12-04] MEDS: GABAPENTIN 100 MG CAP PO SCH ×2 (09:57→23:00)
[2021-12-04] MEDS: VENLAFAXINE 75 MG TAB PO SCH (09:57)
[2021-12-04] MEDS: DOCUSATE SODIUM 100 MG CAP PO SCH ×2 (09:57→23:00)
[2021-12-04] MEDS: CILOSTAZOL 100 MG TAB PO SCH ×2 (09:57→22:58)
[2021-12-04] MEDS: VANCOMYCIN/NS 1 GM/250 ML 1 GM/250 ML BAG IV SCH (10:40)
--- NOTE | 2021-12-04 14:13 | Anesthesia Consultation ---
Anesthesia Consult and Med Hx Date of service: 12/04/21 - Airway Anesthetic Teeth Evaluation: Edentulous ROM Head & Neck: Adequate Mental/Hyoid Distance: Adequate Mallampati Class: Class II Intubation Access Assessment: Probably Good - Pre-Operative Health Status ASA Pre-Surgery Classification: ASA3 Proposed Anesthetic Plan: General - Pulmonary Hx Smoking: Yes (SMOKES 7 CIGARETTES/DAY) Hx Asthma: No COPD: No Hx Pneumonia: Yes Hx Sleep Apnea: Yes - Cardiovascular System Hx Hypertension: Yes Hx Coronary Artery Disease: Yes (elevated troponin) Hx Heart Attack/AMI: No (Cardiac clearance; echo & nst) Hx Peripheral Vascular Disease: Yes (thrombosis and infection of left fem-pop graft, PERIPHERAL NEUROPATHY) - Central Nervous System Hx Seizures: No CVA: Yes (STROKE 6 YEARS AGO. NO DEFICITS.) Hx Psychiatric Problems: Yes (Depression) - Gastrointestinal Hx Gastroesophageal Reflux Disease: No - Endocrine Hx Renal Disease: No Hx Liver Disease: No - Hematic Hx Anemia: No Hx Sickle Cell Disease: No - Other Systems Hx Alcohol Use: Yes (OCCASIONALLY) Hx Substance Use: No Hx Cancer: No Hx Obesity: No (patient is cachecsic)
--- NOTE | 2021-12-04 14:18 | Anesthesia Day of Surgery ---
Anesthesia Day of Surgery - Day of Surgery Patient Examined: Yes Patient H&P Reviewed: Yes Patient is NPO: Yes
[2021-12-04] MEDS ORDERED: LIDOCAINE MPF (2%) 20 MG/1 ML VIAL 5 ML ONE (15:36)
[2021-12-04] MEDS ORDERED: fentaNYL 250 MCG/5 ML INJ ONE (15:36)
[2021-12-04] MEDS ORDERED: ONDANSETRON 4 MG/2 ML INJ ONE (15:36)
[2021-12-04] MEDS ORDERED: fentaNYL 100 MCG/2 ML INJ ONE (15:37)
[2021-12-04] MEDS ORDERED: propofoL 200 MG/20 ML VIAL IV ONE (15:37)
[2021-12-04] MEDS ORDERED: HEPARIN 10,000 UNITS/10 ML VIAL ONE (16:22)
[2021-12-04] MEDS ORDERED: BUPIVACAINE/PF (0.5%) 5 MG/1 ML 30 ML VIAL INFILTRATI ONE (16:22)
[2021-12-04] MEDS ORDERED: SODIUM CHLORIDE 0.9% 500 ML 500 ML ONE (16:22)
[2021-12-04] MEDS: ASPIRIN EC 81 MG TAB PO SCH (17:13)
[2021-12-04] MEDS ORDERED: HEPARIN 10,000 UNITS/10 ML VIAL IR ONE (17:52)
[2021-12-04] MEDS ORDERED: SODIUM CHLORIDE 0.9% IRR 1,500 ML BOTTLE IR ONE (17:53)
[2021-12-04] MEDS ORDERED: SODIUM CHLORIDE 0.9% 500 ML IVPB IRRIGATION ONE (17:53)
[2021-12-04] MEDS ORDERED: NEOMY 40 MG/POLYMYXIN B 200,000 UNITS/ML (GU) AMPULE IR ONE ×3 (18:40→19:06)
[2021-12-04] MEDS ORDERED: SODIUM CHLORIDE 0.9% IRRIG SOLN 2000 ML IR ONE (19:05)
[2021-12-04] MEDS ORDERED: HYDROmorphone 0.5 MG/0.5 ML INJ IV PRN (19:37)
[2021-12-04] MEDS ORDERED: ONDANSETRON 4 MG/2 ML INJ IV PRN (19:37)
[2021-12-04] MEDS ORDERED: PHENYLEPHRINE/NS 1,000 MCG/10 ML SYRINGE (OR USE) IV ONE ×3 (19:42)
[2021-12-04] MEDS ORDERED: LACTATED RINGERS 2,000 ML ONE (19:42)
[2021-12-04] MEDS ORDERED: SODIUM CHLORIDE 0.9% 1000 ML 1,000 ML ONE (19:42)
--- NOTE | 2021-12-04 20:06 | Operative Report ---
Operative Report Operative Report: Date of Procedure: 12/04/2021 Pre-operative Diagnosis: Infected Left Femoral to Below-Knee Popliteal Artery By pass Graft Post-operative Diagnosis: Same Procedure(s): 1. Excision of Infected Left Femoral to Below-Knee Popliteal Artery Bypass Graft 2. Coverage of Left Common Femoral Artery with Sartorius Muscle Flap 3. Wound VAC Placement (Wound Measures 13 x 4 x 2 cm) Surgeon: Lauri Edge M.D. [place]queak Worker: None Anesthesia: General Endotracheal Anesthesia EBL: 800 mL Counts: Correct Complications: None Condition: Stable Findings: Upon removal of the wound VAC from the left groin the PTFE graft was exposed. There was a large, foul-smelling, purulent fluid collection in the distal thigh incision. The entire PTFE graft was removed without any residual PTFE remaining. Specimen: Left femoral to below-knee popliteal artery bypass graft as well as wound cultures were sent to microbiology. Indication: The patient is a 56-year-old female with a history of peripheral vascular disease who previously underwent a left femoral to below-knee popliteal artery bypass with the 6 mm ringed PTFE graft. The graft thrombosed and on postoperative day #1 she required endovascular revascularization of her [place] vessels. She presented to the hospital, approximately 4 to 5 weeks after her initial operation, with hypotension and leukocytosis. She had a CT scan that demonstrated air within the bypass graft as well as multiple fluid collections with air within them. This was all suggestive of a graft infection. She is in need of excision of the graft with coverage of the left common femoral artery with a sartorius flap. She was given the risk, benefits, and alternative procedures and consented to the procedure. Description of Procedure: The patient was brought to the operating room and laid in supine position. After timeout was performed general endotracheal anesthesia was achieved. The patient had a wound VAC in her left groin which was removed and upon removing the wound VAC the proximal portion of the PTFE graft was exposed. The patient's left leg was then prepped and draped in normal sterile fashion and care was taken not to disrupt the proximal anastomosis. I used a 10 blade to extend the incision in the left groin and was able to carry the incision down to the left common femoral artery using a combination of blunt and sharp dissection. I exposed enough of the femoral artery to allow placement of a Satinsky clamp for removal of the graft and closure of the arteriotomy. Prior to excising the graft from the common femoral artery I wanted to expose the remainder of the graft. A is a 10 blade to reopen the left thigh incision and upon opening the incision there was a significant amount of foul-smelling purulent drainage extending into the thigh incision near the popliteal artery. This was cultured and sent to microbiology. I then used a 10 blade to reopen the calf incision and was able to use a combination of blunt and sharp dissection to expose the distal anastomosis. Upon exposing anastomosis there was a significant mount of bleeding likely from disruption of the anastomosis. I was able to gain control of the popliteal artery distal to the anastomosis and controlled it with an angled DeBakey clamp. I used curved Mayos to transect the graft off of the anastomosis and passed a 4 Paxton into the proximal popliteal artery with a three-way stopcock and was able to control the inflow using the Paxton. At this point I systemically heparinized the patient with 3000 units of heparin IV. I was eventually able to find a small vein within the calf and ligated both proximal distal and then spliced this opened and used as a vein patch to close the popliteal arteriotomy using two 6-0 Prolene's in running fashion. Prior to completing the closure I flashed the inflow and outflow and then remove the Paxton and complete the closure. I then packed the wound with a quick clot and sponge. I then pulled the graft back through the tunnel and into the thigh incision and then eventually back through the tunnel and out of the groin incision. I then found a remnant of the saphenous vein, just distal to where it had been ligated and transected this. I then spliced this open to use as a vein patch for the common femoral artery closure. I clamped the common femoral artery using a Satinsky clamp and then used an 11 blade and Verdin scissors to transect the graft off of the femoral artery. I used two 6-0 Prolene's in the vein patch to close the left common femoral artery arteriotomy. Prior to completing the closure I removed a Satinsky clamp while holding pressure on the distal common femoral artery to prevent any emboli into the profunda or SFA. I reclamped the artery and then flushed the arteriotomy with heparinized saline. I then completed the closure and remove the clamp. Hemostasis within the right groin was achieved with quick clot and manual pressure. I then used pulse irrigation with antibiotic and pulse irrigated all wounds. There was some bleeding from the popliteal artery repair that required management with 6-0 Prolene in interrupted fashion. Once this was controlled I will place several sheets of quick clot on the repair to gain further hemostasis. I then dissected the sartorius muscle within the groin incision and used a split technique to split the fibers of the muscle for coverage of the common femoral artery. I was able to then tacked the muscle to the medial fascia using 0 Vicryl in inte rrupted fashion. I then packed the distal thigh and calf incision with Betadine soaked Kerlix and dressed with ABD pads, a Kerlix roll, and a 6 inch Ravi bandage. I placed a wound VAC in the left groin which I was able to gain an adequate seal. The patient tolerated the procedure well. All sponge, needle, and instrument counts were correct. The patient was taken to the recovery area in stable condition.
[2021-12-04] MEDS ORDERED: SODIUM CHLORIDE 0.9% 500 ML 500 ML IV ONE (20:07)
[2021-12-04] MEDS: ONDANSETRON 4 MG/2 ML INJ IV PRN (22:52)
[2021-12-04] MEDS: traZODone 100 MG TAB PO SCH (23:00)
[2021-12-05] MEDS: VANCOMYCIN/NS 1 GM/250 ML 1 GM/250 ML BAG IV SCH ×3 (00:55→22:28)
[2021-12-05] MEDS: oxyCODONE /ACETAMINOPHEN 5-325MG TAB PO PRN ×3 (04:32→23:13)
[2021-12-05 04:58] LABS: Basophils % (Auto) 0.3 % (0.0-1.8); Eosinophils % (Auto) 0.1 % (0.0-4.3); Hemoglobin 8.3 gm/dl (10.1-14.3); Lymphocytes # (Auto) 0.9 K/mm3 (1.2-5.4); Lymphocytes % (Auto) 6.3 % (13.4-35.0); Mean Corpuscular HGB Conc 33 % (30-34); Mean Corpuscular Volume 81 fl (79-97); Monocytes # (Auto) 1.1 K/mm3 (0.0-0.8); Monocytes % (Auto) 7.4 % (0.0-7.3); Platelet Count 216 K/mm3 (140-440); Red Blood Count 3.11 M/mm3 (3.65-5.03); Red Cell Distribution Width 18.8 % (13.2-15.2)
[2021-12-05 05:16] LABS: Hematocrit 25.2 % (30.3-42.9)
[2021-12-05 05:19] LABS: Alanine Aminotransferase 6 units/L (7-56); Albumin 1.5 g/dL (3.9-5); Blood Urea Nitrogen 10 mg/dL (7-17); Calcium 7.1 mg/dL (8.4-10.2); Hemolysis Index 4
[2021-12-05 05:26] LABS: BUN/Creatinine Ratio 20
[2021-12-05] MEDS: HYDROmorphone 1 MG/1 ML INJ IV PRN ×2 (05:54→13:38)
[2021-12-05] MEDS ORDERED: PNEUMOCOCCAL 23 Valent 0.5 ML VIAL IM ONE (10:00)
[2021-12-05] MEDS: CEFEPIME/NS 2 GM/100 ML 2 GM/100 ML BAG IV SCH ×2 (10:16→22:28)
[2021-12-05] MEDS: ASPIRIN EC 81 MG TAB PO SCH (10:17)
[2021-12-05] MEDS: PANTOPRAZOLE 40 MG TAB PO SCH (10:17)
[2021-12-05] MEDS: CILOSTAZOL 100 MG TAB PO SCH ×2 (10:17→22:28)
[2021-12-05] MEDS: DOCUSATE SODIUM 100 MG CAP PO SCH ×2 (10:17→22:28)
[2021-12-05] MEDS: GABAPENTIN 100 MG CAP PO SCH ×2 (10:17→22:28)
[2021-12-05] MEDS: APIXABAN 2.5 MG TAB PO SCH ×2 (10:18→22:28)
[2021-12-05] MEDS: VENLAFAXINE 75 MG TAB PO SCH (10:18)
--- NOTE | 2021-12-05 10:39 | Progress Note ---
<MLIES SHAY - Last Filed: 12/05/21 16:17> Assessment and Plan - Patient Problems (1) Femoral-popliteal bypass graft occlusion, left Current Visit: No Status: Acute Plan to address problem: Severe PVD s/p left femoral to below-knee popliteal artery bypass with fasciotomy, right lower extremity vascularization -Vascular surgery following-f/u with recommendation 12/04/21-She is s/p excision of Infected Left Femoral to Below-Knee Popliteal Artery Bypass Graft (2) HTN (hypertension) Current Visit: No Status: Acute Plan to address problem: HX of HTN, CAD Monitor blood pressure Continue with anti-hypertensive s/p vasopressor support with levophed (3) Physical deconditioning Current Visit: No Status: Acute Plan to address problem: S/P rehab PT/OT following assist with position and ADLs (4) Alcohol abuse Current Visit: No Status: Chronic Plan to address problem: h/o EtOH abuse, neuropathy patient denies current alcohol use patient advised to continue to avoid alcohol use (5) Leukocytosis Current Visit: Yes Status: Acute Qualifiers: Leukocytosis type: unspecified Qualified Code(s): D72.829 - Elevated white blood cell count, unspecified Plan to address problem: Likely 2/2 to sepsis/infect wound and purulent drainage from leg wounds Infectious disease consulted, appreciate recommendations Continue Antibiotic therapy with cefepime and vancomycin WOCN consulted for wound care Blood culture-f/u blood culture Monitor WBC and temperature curve (6) Protein calorie malnutrition Current Visit: Yes Status: Acute Plan to address problem: Encourage oral intake -Regular diet with nutritional supplementation The high probability of a clinically significant, sudden or life threatening deterioration of the [multi] system(s) required my full and direct attention, intervention and personal management. The aggregate critical care time was [60] minutes. This time is in addition to time spent performing reported procedures but includes the following: [x] Data Review and interpretation [x] Patient assessment and monitoring of vital signs [x] Documentation [x] Medication orders and management Total Time Spent with Patient (Minutes): 60 History Interval history: 12/05/21-patient is seen at bedside. Patient alert and oriented. V/S stable. She is s/p excision of Infected Left Femoral to Below-Knee Popliteal Artery Bypass Graft-done 12/04/21. Wound VAC Placement left groin. patient reports pain left. Unable to feel left pedal pulse with doppler. patient's nurse at bedside at the time of assessment. I spoke to Dr Edge-vascular surgeon-he agreed to come and re-assess pt. Hospitalist Physical - Constitutional Vitals: Temp Pulse Resp BP Pulse Ox 98.0 F 90 16 89/42 98 12/05/21 08:00 12/05/21 10:15 12/05/21 10:15 12/05/21 10:15 12/05/21 10:15 General appearance: Present: mild distress, cachectic - EENT ENT: hearing intact - Respiratory Respiratory: bilateral: diminished - Cardiovascular Rhythm: regular - Extremities Extremities: abnormal (left groin with wound vac. left left femoral/popleteal bipass graft with dressing on) Extremity abnormal: other (left leg edema-poor pulses with doppler-notified vascular surgeon.) - Abdominal General gastrointestinal: soft - Integumentary Integumentary: Present: warm (left let wound), erythema, decreased turgor - Psychiatric Psychiatric: cooperative - Allied Health Allied health notes reviewed: nursing, PT HEART Score - HEART Score Troponin: Troponin T 0.119 ng/mL (0.00-0.029) H* 11/30/21 15:56 Results - Labs CBC & Chem 7: 12/05/21 04:45 12/05/21 04:45 Labs: Laboratory Last Values WBC 15.0 K/mm3 (4.5-11.0) H 12/05/21 04:45 RBC 3.11 M/mm3 (3.65-5.03) L 12/05/21 04:45 Hgb 8.3 gm/dl (10.1-14.3) L 12/05/21 04:45 Hct 25.2 % (30.3-42.9) L D 12/05/21 04:45 MCV 81 fl (79-97) 12/05/21 04:45 MCH 27 pg (28-32) L 12/05/21 04:45 MCHC 33 % (30-34) 12/05/21 04:45 RDW 18.8 % (13.2-15.2) H 12/05/21 04:45 Plt Count 216 K/mm3 (140-440) 12/05/21 04:45 Lymph % (Auto) 6.3 % (13.4-35.0) L 12/05/21 04:45 Major % (Auto) 7.4 % (0.0-7.3) H 12/05/21 04:45 Eos % (Auto) 0.1 % (0.0-4.3) 12/05/21 04:45 Baso % (Auto) 0.3 % (0.0-1.8) 12/05/21 04:45 Lymph # (Auto) 0.9 K/mm3 (1.2-5.4) L 12/05/21 04:45 Major # (Auto) 1.1 K/mm3 (0.0-0.8) H 12/05/21 04:45 Eos # (Auto) 0.0 K/mm3 (0.0-0.4) 12/05/21 04:45 Baso # (Auto) 0.0 K/mm3 (0.0-0.1) 12/05/21 04:45 Add Manual Diff Complete 12/01/21 04:33 Total Counted 100 12/01/21 04:33 Seg Neutrophils % 85.9 % (40.0-70.0) H 12/05/21 04:45 Seg Neuts % (Manual) 82.0 % (40.0-70.0) H 12/01/21 04:33 Band Neutrophils % 8.0 % 12/01/21 04:33 Lymphocytes % (Manual) 5.0 % (13.4-35.0) L 12/01/21 04:33 Reactive Lymphs % (Man) 0 % 12/01/21 04:33 Monocytes % (Manual) 4.0 % (0.0-7.3) 12/01/21 04:33 Eosinophils % (Manual) 0 % (0.0-4.3) 12/01/21 04:33 Basophils % (Manual) 0 % (0.0-1.8) 12/01/21 04:33 Metamyelocytes % 1.0 % 12/01/21 04:33 Myelocytes % 0 % 12/01/21 04:33 Promyelocytes % 0 % 12/01/21 04:33 Blast Cells % 0 % 12/01/21 04:33 Nucleated RBC % Not Reportable 12/01/21 04:33 Seg Neutrophils # 12.9 K/mm3 (1.8-7.7) H 12/05/21 04:45 Seg Neutrophils # Man 17.0 K/mm3 (1.8-7.7) H 12/01/21 04:33 Band Neutrophils # 1.7 K/mm3 12/01/21 04:33 Lymphocytes # (Manual) 1.0 K/mm3 (1.2-5.4) L 12/01/21 04:33 Abs React Lymphs (Man) 0.0 K/mm3 12/01/21 04:33 Monocytes # (Manual) 0.8 K/mm3 (0.0-0.8) 12/01/21 04:33 Eosinophils # (Manual) 0.0 K/mm3 (0.0-0.4) 12/01/21 04:33 Basophils # (Manual) 0.0 K/mm3 (0.0-0.1) 12/01/21 04:33 Metamyelocytes # 0.2 K/mm3 12/01/21 04:33 Myelocytes # 0.0 K/mm3 12/01/21 04:33 Promyelocytes # 0.0 K/mm3 12/01/21 04:33 Blast Cells # 0.0 K/mm3 12/01/21 04:33 WBC Morphology Not Reportable 12/01/21 04:33 Hypersegmented Neuts Not Reportable 12/01/21 04:33 Hyposegmented Neuts Not Reportable 12/01/21 04:33 Hypogranular Neuts Not Reportable 12/01/21 04:33 Smudge Cells Not Reportable 12/01/21 04:33 Toxic Granulation Not Reportable 12/01/21 04:33 Toxic Vacuolation Not Reportable 12/01/21 04:33 Dohle Bodies Not Reportable 12/01/21 04:33 Pelger-Huet Anomaly Not Reportable 12/01/21 04:33 Mary Rods Not Reportable 12/01/21 04:33 Platelet Estimate Consistent w auto 12/01/21 04:33 Clumped Platelets Not Reportable 12/01/21 04:33 Plt Clumps, EDTA Not Reportable 12/01/21 04:33 Large Platelets Not Reportable 12/01/21 04:33 Giant Platelets Not Reportable 12/01/21 04:33 Platelet Satelliting Not Reportable 12/01/21 04:33 Plt Morphology Comment Not Reportable 12/01/21 04:33 RBC Morphology Not Reportable 12/01/21 04:33 Dimorphic RBCs Not Reportable 12/01/21 04:33 Polychromasia Not Reportable 12/01/21 04:33 Hypochromasia 2+ 12/01/21 04:33 Poikilocytosis Few 12/01/21 04:33 Anisocytosis 1+ 12/01/21 04:33 Microcytosis 1+ 12/01/21 04:33 Macrocytosis Not Reportable 12/01/21 04:33 Spherocytes Not Reportable 12/01/21 04:33 Pappenheimer Bodies Not Reportable 12/01/21 04:33 Sickle Cells Not Reportable 12/01/21 04:33 Target Cells Not Reportable 12/01/21 04:33 Tear Drop Cells Not Reportable 12/01/21 04:33 Ovalocytes Few 12/01/21 04:33 Helmet Cells Not Reportable 12/01/21 04:33 Ybarra-Hachita Bodies Not Reportable 12/01/21 04:33 [place] Rings Not Reportable 12/01/21 04:33 [place] Cells Not Reportable 12/01/21 04:33 Bite Cells Not Reportable 12/01/21 04:33 Crenated Cell Not Reportable 12/01/21 04:33 Elliptocytes Rare 12/01/21 04:33 Acanthocytes (Spur) Not Reportable 12/01/21 04:33 Rouleaux Not Reportable 12/01/21 04:33 Hemoglobin C Crystals Not Reportable 12/01/21 04:33 Schistocytes Not Reportable 12/01/21 04:33 Malaria parasites Not Reportable 12/01/21 04:33 Kvng Bodies Not Reportable 12/01/21 04:33 Hem Pathologist Commnt No 12/01/21 04:33 PT 14.9 Sec. (12.2-14.9) 12/04/21 04:35 INR 1.05 (0.87-1.13) 12/04/21 04:35 APTT 43.1 Sec. (24.2-36.6) H 11/30/21 15:56 VBG pH 7.509 (7.320-7.420) H 11/30/21 15:57 Sodium 140 mmol/L (137-145) 12/05/21 04:45 Potassium 3.5 mmol/L (3.6-5.0) L 12/05/21 04:45 Chloride 107.1 mmol/L (98-107) H 12/05/21 04:45 Carbon Dioxide 22 mmol/L (22-30) 12/05/21 04:45 Anion Gap 14 mmol/L 12/05/21 04:45 BUN 10 mg/dL (7-17) 12/05/21 04:45 Creatinine 0.5 mg/dL (0.6-1.2) L 12/05/21 04:45 Estimated GFR > 60 ml/min 12/05/21 04:45 BUN/Creatinine Ratio 20 % 12/05/21 04:45 Glucose 106 mg/dL (65-100) H 12/05/21 04:45 Lactic Acid 1.20 mmol/L (0.7-2.0) 11/30/21 17:23 Calcium 7.1 mg/dL (8.4-10.2) L D 12/05/21 04:45 Phosphorus 5.20 mg/dL (2.5-4.5) H D 12/03/21 04:24 Magnesium 1.80 mg/dL (1.7-2.3) 12/03/21 04:24 Total Bilirubin 0.50 mg/dL (0.1-1.2) 12/05/21 04:45 AST 14 units/L (5-40) 12/05/21 04:45 ALT 6 units/L (7-56) L 12/05/21 04:45 Alkaline Phosphatase 84 units/L (35-129) 12/05/21 04:45 Troponin T 0.119 ng/mL (0.00-0.029) H* 11/30/21 15:56 Total Protein 3.9 g/dL (6.3-8.2) L 12/05/21 04:45 Albumin 1.5 g/dL (3.9-5) L 12/05/21 04:45 Albumin/Globulin Ratio 0.6 % 12/05/21 04:45 Triglycerides 108 mg/dL (2-149) 11/30/21 15:56 Cholesterol 82 mg/dL (50-199) 11/30/21 15:56 LDL Cholesterol Direct 38 mg/dL (50-130) L 11/30/21 15:56 HDL Cholesterol 28 mg/dL (40-59) L 11/30/21 15:56 Cholesterol/HDL Ratio 2.92 % 11/30/21 15:56 TSH 1.870 mlU/mL (0.270-4.200) 11/30/21 15:57 Urine Color Yellow (Yellow) 11/30/21 02:50 Urine Turbidity Clear (Clear) 11/30/21 02:50 Urine pH 6.0 (5.0-7.0) 11/30/21 02:50 Ur Specific [place] 1.005 (1.003-1.030) 11/30/21 02:50 Urine Protein <15 mg/dl mg/dL (Negative) 11/30/21 02:50 Urine Glucose (UA) Neg mg/dL (Negative) 11/30/21 02:50 Urine Ketones Neg mg/dL (Negative) 11/30/21 02:50 Urine Blood Sm (Negative) 11/30/21 02:50 Urine Nitrite Neg (Negative) 11/30/21 02:50 Urine Bilirubin Neg (Negative) 11/30/21 02:50 Urine Urobilinogen < 2.0 mg/dL (<2.0) 11/30/21 02:50 Ur Leukocyte Esterase Neg (Negative) 11/30/21 02:50 Urine WBC (Auto) 2.0 /HPF (0.0-6.0) 11/30/21 02:50 Urine RBC (Auto) 2.0 /HPF (0.0-6.0) 11/30/21 02:50 U Epithel Cells (Auto) 1.0 /HPF (0-13.0) 11/30/21 02:50 Urine Bacteria (Auto) 1+ /HPF (Negative) 11/30/21 02:50 Urine Yeast (Budding) 1+ /HPF 11/30/21 02:50 Vancomycin Trough 5.3 ug/mL (5.0-20.0) 12/03/21 21:17 Blood Type O POSITIVE 12/03/21 14:07 Antibody Screen Negative 12/03/21 14:07 Crossmatch See Detail 12/03/21 14:07 Microbiology: Microbiology 11/30/21 15:56 Peripheral/Venous Blood Culture - Preliminary NO GROWTH AFTER 4 DAYS 11/30/21 15:56 Peripheral/Venous Blood Culture - Preliminary Victor/IV: Voiding Method External Female Catheter Active Medications - Current Medications Current Medications: Generic Name Dose Route Start Last Admin Trade Name Freq PRN Reason Stop Dose Admin Acetaminophen 650 mg 11/30/21 19:24 12/04/21 22:58 Acetaminophen 325 Mg Tab PO 650 mg Q4H PRN Administration Pain MILD(1-3)/Fever >100.5/GONZALEZ Apixaban 2.5 mg 12/05/21 10:00 12/05/21 10:18 Apixaban 2.5 Mg Tab PO 2.5 mg Q12HR SRAVAN Administration Protocol Aspirin 81 mg 12/04/21 14:00 12/05/21 10:17 Aspirin Ec 81 Mg Tab PO 81 mg QDAY SRAVAN Administration Cilostazol 50 mg 12/01/21 22:00 12/05/21 10:17 Cilostazol 100 Mg Tab PO 50 mg BID SRAVAN Administration Docusate Sodium 100 mg 12/01/21 22:00 12/05/21 10:17 Docusate Sodium 100 Mg Cap PO 100 mg BID SRAVAN Administration Gabapentin 100 mg 12/01/21 22:00 12/05/21 10:17 Gabapentin 100 Mg Cap PO 100 mg BID SRAVAN Administration Hydromorphone HCl 0.5 mg 12/01/21 10:42 12/05/21 05:54 Hydromorphone 1 Mg/1 Ml Inj IV 0.5 mg Q4H PRN Administration Pain , Severe (7-10) Hydromorphone HCl 0.5 mg 12/04/21 19:37 Hydromorphone 0.5 Mg/0.5 Ml Inj IV Q10MIN PRN Pain , Severe (7-10) Cefepime HCl 2 gm in 100 mls @ 200 mls/hr 12/01/21 10:00 12/05/21 10:16 Cefepime/Ns 2 Gm/100 Ml IV 200 mls/hr Q12H SRAVAN Administration Protocol Vancomycin HCl 1 gm in 250 mls @ 167.007 mls/hr 12/04/21 11:00 12/05/21 00:55 Vancomycin/Ns 1 Gm/250 Ml IV 167.007 mls/hr Q12H SRAVAN Administration Ondansetron HCl 4 mg 11/30/21 19:24 12/04/21 22:52 Ondansetron 4 Mg/2 Ml Inj IV 4 mg Q8H PRN Administration Nausea And Vomiting Oxycodone/Acetaminophen 2 tab 12/02/21 11:44 12/05/21 10:16 Oxycodone /Acetaminophen 5-325mg Tab PO 2 tab Q8H PRN Administration Pain, Moderate (4-6) Pantoprazole Sodium 40 mg 12/01/21 20:00 12/05/21 10:17 Pantoprazole 40 Mg Tab PO 40 mg QDAY SRAVAN Administration Sodium Chloride 10 ml 11/30/21 22:00 12/05/21 10:18 Sodium Chloride 0.9% 10 Ml Flush Syringe IV 10 ml BID SRAVAN Administration Sodium Chloride 10 ml 11/30/21 19:24 Sodium Chloride 0.9% 10 Ml Flush Syringe IV PRN PRN LINE FLUSH Trazodone HCl 100 mg 12/01/21 22:00 12/04/21 23:00 Trazodone 100 Mg Tab PO 100 mg QHS SRAVAN Administration Venlafaxine HCl 75 mg 12/01/21 20:00 12/05/21 10:18 Venlafaxine 75 Mg Tab PO 75 mg DAILY SRAVAN Administration <ARNOLD WELCH - Last Filed: 12/06/21 07:25> Assessment and Plan Assessment and plan: I saw and evaluated the patient. I agree with the findings and the plan of care as documented in the Nurse Practitioner's~note, with the following corrections and additions. Hospitalist Physical - Constitutional Vitals: Temp Pulse Resp BP Pulse Ox 98.1 F 85 12 111/51 97 12/06/21 04:00 12/06/21 06:00 12/06/21 06:00 12/06/21 06:00 12/06/21 06:00 HEART Score - HEART Score Troponin: Troponin T 0.119 ng/mL (0.00-0.029) H* 11/30/21 15:56 Results - Labs CBC & Chem 7: 12/05/21 04:45 12/06/21 00:28 Labs: Laboratory Last Values WBC 15.0 K/mm3 (4.5-11.0) H 12/05/21 04:45 RBC 3.11 M/mm3 (3.65-5.03) L 12/05/21 04:45 Hgb 8.3 gm/dl (10.1-14.3) L 12/05/21 04:45 Hct 25.2 % (30.3-42.9) L D 12/05/21 04:45 MCV 81 fl (79-97) 12/05/21 04:45 MCH 27 pg (28-32) L 12/05/21 04:45 MCHC 33 % (30-34) 12/05/21 04:45 RDW 18.8 % (13.2-15.2) H 12/05/21 04:45 Plt Count 216 K/mm3 (140-440) 12/05/21 04:45 Lymph % (Auto) 6.3 % (13.4-35.0) L 12/05/21 04:45 Major % (Auto) 7.4 % (0.0-7.3) H 12/05/21 04:45 Eos % (Auto) 0.1 % (0.0-4.3) 12/05/21 04:45 Baso % (Auto) 0.3 % (0.0-1.8) 12/05/21 04:45 Lymph # (Auto) 0.9 K/mm3 (1.2-5.4) L 12/05/21 04:45 Major # (Auto) 1.1 K/mm3 (0.0-0.8) H 12/05/21 04:45 Eos # (Auto) 0.0 K/mm3 (0.0-0.4) 12/05/21 04:45 Baso # (Auto) 0.0 K/mm3 (0.0-0.1) 12/05/21 04:45 Add Manual Diff Complete 12/01/21 04:33 Total Counted 100 12/01/21 04:33 Seg Neutrophils % 85.9 % (40.0-70.0) H 12/05/21 04:45 Seg Neuts % (Manual) 82.0 % (40.0-70.0) H 12/01/21 04:33 Band Neutrophils % 8.0 % 12/01/21 04:33 Lymphocytes % (Manual) 5.0 % (13.4-35.0) L 12/01/21 04:33 Reactive Lymphs % (Man) 0 % 12/01/21 04:33 Monocytes % (Manual) 4.0 % (0.0-7.3) 12/01/21 04:33 Eosinophils % (Manual) 0 % (0.0-4.3) 12/01/21 04:33 Basophils % (Manual) 0 % (0.0-1.8) 12/01/21 04:33 Metamyelocytes % 1.0 % 12/01/21 04:33 Myelocytes % 0 % 12/01/21 04:33 Promyelocytes % 0 % 12/01/21 04:33 Blast Cells % 0 % 12/01/21 04:33 Nucleated RBC % Not Reportable 12/01/21 04:33 Seg Neutrophils # 12.9 K/mm3 (1.8-7.7) H 12/05/21 04:45 Seg Neutrophils # Man 17.0 K/mm3 (1.8-7.7) H 12/01/21 04:33 Band Neutrophils # 1.7 K/mm3 12/01/21 04:33 Lymphocytes # (Manual) 1.0 K/mm3 (1.2-5.4) L 12/01/21 04:33 Abs React Lymphs (Man) 0.0 K/mm3 12/01/21 04:33 Monocytes # (Manual) 0.8 K/mm3 (0.0-0.8) 12/01/21 04:33 Eosinophils # (Manual) 0.0 K/mm3 (0.0-0.4) 12/01/21 04:33 Basophils # (Manual) 0.0 K/mm3 (0.0-0.1) 12/01/21 04:33 Metamyelocytes # 0.2 K/mm3 12/01/21 04:33 Myelocytes # 0.0 K/mm3 12/01/21 04:33 Promyelocytes # 0.0 K/mm3 12/01/21 04:33 Blast Cells # 0.0 K/mm3 12/01/21 04:33 WBC Morphology Not Reportable 12/01/21 04:33 Hypersegmented Neuts Not Reportable 12/01/21 04:33 Hyposegmented Neuts Not Reportable 12/01/21 04:33 Hypogranular Neuts Not Reportable 12/01/21 04:33 Smudge Cells Not Reportable 12/01/21 04:33 Toxic Granulation Not Reportable 12/01/21 04:33 Toxic Vacuolation Not Reportable 12/01/21 04:33 Dohle Bodies Not Reportable 12/01/21 04:33 Pelger-Huet Anomaly Not Reportable 12/01/21 04:33 Mary Rods Not Reportable 12/01/21 04:33 Platelet Estimate Consistent w auto 12/01/21 04:33 Clumped Platelets Not Reportable 12/01/21 04:33 Plt Clumps, EDTA Not Reportable 12/01/21 04:33 Large Platelets Not Reportable 12/01/21 04:33 Giant Platelets Not Reportable 12/01/21 04:33 Platelet Satelliting Not Reportable 12/01/21 04:33 Plt Morphology Comment Not Reportable 12/01/21 04:33 RBC Morphology Not Reportable 12/01/21 04:33 Dimorphic RBCs Not Reportable 12/01/21 04:33 Polychromasia Not Reportable 12/01/21 04:33 Hypochromasia 2+ 12/01/21 04:33 Poikilocytosis Few 12/01/21 04:33 Anisocytosis 1+ 12/01/21 04:33 Microcytosis 1+ 12/01/21 04:33 Macrocytosis Not Reportable 12/01/21 04:33 Spherocytes Not Reportable 12/01/21 04:33 Pappenheimer Bodies Not Reportable 12/01/21 04:33 Sickle Cells Not Reportable 12/01/21 04:33 Target Cells Not Reportable 12/01/21 04:33 Tear Drop Cells Not Reportable 12/01/21 04:33 Ovalocytes Few 12/01/21 04:33 Helmet Cells Not Reportable 12/01/21 04:33 Ybarra-Hachita Bodies Not Reportable 12/01/21 04:33 [place] Rings Not Reportable 12/01/21 04:33 [place] Cells Not Reportable 12/01/21 04:33 Bite Cells Not Reportable 12/01/21 04:33 Crenated Cell Not Reportable 12/01/21 04:33 Elliptocytes Rare 12/01/21 04:33 Acanthocytes (Spur) Not Reportable 12/01/21 04:33 Rouleaux Not Reportable 12/01/21 04:33 Hemoglobin C Crystals Not Reportable 12/01/21 04:33 Schistocytes Not Reportable 12/01/21 04:33 Malaria parasites Not Reportable 12/01/21 04:33 Kvng Bodies Not Reportable 12/01/21 04:33 Hem Pathologist Commnt No 12/01/21 04:33 PT 14.9 Sec. (12.2-14.9) 12/04/21 04:35 INR 1.05 (0.87-1.13) 12/04/21 04:35 APTT 43.1 Sec. (24.2-36.6) H 11/30/21 15:56 VBG pH 7.509 (7.320-7.420) H 11/30/21 15:57 Sodium 137 mmol/L (137-145) 12/06/21 00:28 Potassium 3.0 mmol/L (3.6-5.0) L 12/06/21 00:28 Chloride 106.1 mmol/L (98-107) 12/06/21 00:28 Carbon Dioxide 22 mmol/L (22-30) 12/06/21 00:28 Anion Gap 12 mmol/L 12/06/21 00:28 BUN 10 mg/dL (7-17) 12/06/21 00:28 Creatinine 0.6 mg/dL (0.6-1.2) 12/06/21 00:28 Estimated GFR > 60 ml/min 12/06/21 00:28 BUN/Creatinine Ratio 17 % 12/06/21 00:28 Glucose 100 mg/dL (65-100) 12/06/21 00:28 Lactic Acid 1.20 mmol/L (0.7-2.0) 11/30/21 17:23 Calcium 7.3 mg/dL (8.4-10.2) L 12/06/21 00:28 Phosphorus 3.20 mg/dL (2.5-4.5) 12/05/21 13:43 Magnesium 1.80 mg/dL (1.7-2.3) 12/03/21 04:24 Total Bilirubin 0.50 mg/dL (0.1-1.2) 12/05/21 04:45 AST 14 units/L (5-40) 12/05/21 04:45 ALT 6 units/L (7-56) L 12/05/21 04:45 Alkaline Phosphatase 84 units/L (35-129) 12/05/21 04:45 Troponin T 0.119 ng/mL (0.00-0.029) H* 11/30/21 15:56 Total Protein 3.9 g/dL (6.3-8.2) L 12/05/21 04:45 Albumin 1.5 g/dL (3.9-5) L 12/05/21 04:45 Albumin/Globulin Ratio 0.6 % 12/05/21 04:45 Triglycerides 108 mg/dL (2-149) 11/30/21 15:56 Cholesterol 82 mg/dL (50-199) 11/30/21 15:56 LDL Cholesterol Direct 38 mg/dL (50-130) L 11/30/21 15:56 HDL Cholesterol 28 mg/dL (40-59) L 11/30/21 15:56 Cholesterol/HDL Ratio 2.92 % 11/30/21 15:56 TSH 1.870 mlU/mL (0.270-4.200) 11/30/21 15:57 Urine Color Yellow (Yellow) 11/30/21 02:50 Urine Turbidity Clear (Clear) 11/30/21 02:50 Urine pH 6.0 (5.0-7.0) 11/30/21 02:50 Ur Specific [place] 1.005 (1.003-1.030) 11/30/21 02:50 Urine Protein <15 mg/dl mg/dL (Negative) 11/30/21 02:50 Urine Glucose (UA) Neg mg/dL (Negative) 11/30/21 02:50 Urine Ketones Neg mg/dL (Negative) 11/30/21 02:50 Urine Blood Sm (Negative) 11/30/21 02:50 Urine Nitrite Neg (Negative) 11/30/21 02:50 Urine Bilirubin Neg (Negative) 11/30/21 02:50 Urine Urobilinogen < 2.0 mg/dL (<2.0) 11/30/21 02:50 Ur Leukocyte Esterase Neg (Negative) 11/30/21 02:50 Urine WBC (Auto) 2.0 /HPF (0.0-6.0) 11/30/21 02:50 Urine RBC (Auto) 2.0 /HPF (0.0-6.0) 11/30/21 02:50 U Epithel Cells (Auto) 1.0 /HPF (0-13.0) 11/30/21 02:50 Urine Bacteria (Auto) 1+ /HPF (Negative) 11/30/21 02:50 Urine Yeast (Budding) 1+ /HPF 11/30/21 02:50 Vancomycin Trough 5.3 ug/mL (5.0-20.0) 12/03/21 21:17 Blood Type O POSITIVE 12/03/21 14:07 Antibody Screen Negative 12/03/21 14:07 Crossmatch See Detail 12/03/21 14:07 Microbiology: Microbiology 11/30/21 15:56 Peripheral/Venous Blood Culture - Final NO GROWTH AFTER 5 DAYS 12/04/21 Unknown Other (Please Specify:) - Wound Surgical Culture - Preliminary Gram Negative Edis 12/05/21 13:43 Peripheral/Venous Blood Culture - Preliminary Culture in Progress 12/05/21 13:49 Peripheral/Venous Blood Culture - Preliminary Culture in Progress Victor/IV: Voiding Method External Female Catheter Active Medications - Current Medications Current Medications: Generic Name Dose Route Start Last Admin Trade Name Freq PRN Reason Stop Dose Admin Acetaminophen 650 mg 11/30/21 19:24 12/04/21 22:58 Acetaminophen 325 Mg Tab PO 650 mg Q4H PRN Administration Pain MILD(1-3)/Fever >100.5/GONZALEZ Apixaban 2.5 mg 12/05/21 10:00 12/05/21 22:28 Apixaban 2.5 Mg Tab PO 2.5 mg Q12HR SRAVAN Administration Protocol Aspirin 81 mg 12/04/21 14:00 12/05/21 10:17 Aspirin Ec 81 Mg Tab PO 81 mg QDAY SRAVAN Administration Cilostazol 50 mg 12/01/21 22:00 12/05/21 22:28 Cilostazol 100 Mg Tab PO 50 mg BID SRAVAN Administration Docusate Sodium 100 mg 12/01/21 22:00 12/05/21 22:28 Docusate Sodium 100 Mg Cap PO Not Given BID SRAVAN Gabapentin 100 mg 12/01/21 22:00 12/05/21 22:28 Gabapentin 100 Mg Cap PO 100 mg BID SRAVAN Administration Hydromorphone HCl 0.5 mg 12/01/21 10:42 12/06/21 00:40 Hydromorphone 1 Mg/1 Ml Inj IV 0.5 mg Q4H PRN Administration Pain , Severe (7-10) Cefepime HCl 2 gm in 100 mls @ 200 mls/hr 12/01/21 10:00 12/05/21 22:28 Cefepime/Ns 2 Gm/100 Ml IV 200 mls/hr Q12H SRAVAN Administration Protocol Vancomycin HCl 1 gm in 250 mls @ 167.007 mls/hr 12/04/21 11:00 12/05/21 22:28 Vancomycin/Ns 1 Gm/250 Ml IV 167.007 mls/hr Q12H SRAVAN Administration Ondansetron HCl 4 mg 11/30/21 19:24 12/04/21 22:52 Ondansetron 4 Mg/2 Ml Inj IV 4 mg Q8H PRN Administration Nausea And Vomiting Oxycodone/Acetaminophen 2 tab 12/02/21 11:44 12/05/21 23:13 Oxycodone /Acetaminophen 5-325mg Tab PO 2 tab Q8H PRN Administration Pain, Moderate (4-6) Pantoprazole Sodium 40 mg 12/01/21 20:00 12/05/21 10:17 Pantoprazole 40 Mg Tab PO 40 mg QDAY SRVAAN Administration Sodium Chloride 10 ml 11/30/21 22:00 12/05/21 22:29 Sodium Chloride 0.9% 10 Ml Flush Syringe IV 10 ml BID SRAVAN Administration Sodium Chloride 10 ml 11/30/21 19:24 Sodium Chloride 0.9% 10 Ml Flush Syringe IV PRN PRN LINE FLUSH Trazodone HCl 100 mg 12/01/21 22:00 12/05/21 22:28 Trazodone 100 Mg Tab PO 100 mg QHS SRAVAN Administration Venlafaxine HCl 75 mg 12/01/21 20:00 12/05/21 10:18 Venlafaxine 75 Mg Tab PO 75 mg DAILY SRAVAN Administration Nutrition/Malnutrition Assess - Dietary Evaluation Nutrition/Malnutrition Findings: Nutrition Notes Start: 12/05/21 15:5 4 Freq: Status: Active Protocol: Document 12/05/21 15:54 MERARI (Rec: 12/05/21 16:47 MERARI [id number]) Nutrition Notes Need for Assessment generated from: MD Order,show host or hostess,MST Initial or Follow up Assessment Current Diagnosis Acute Kidney Injury,Sepsis, Malnutrition Other Pertinent Diagnosis Metabolic Encephalopathy, PAD s/p Revascularization, PVD, L- LE Ischemia, .. Current Diet Regular Diet + D Suppl (since B 12/05). Labs/Tests 12/05: K 3.5, Cl 107.1, Crea 0 .5, Glu 106, Ca 7.1. Pertinent Medications 12/05: Nutritionally unremarkable. Height 5 ft 3 in Weight 47.3 kg [place] Body Weight (kg) 52.27 BMI 18.4 Intake Prior to Admission Poor Weight change and time frame Pt states having, unintentionally, loss between 14 and 23 lb recently. Weight Status Underweight Subjective/Other Information RD consult for risk of malnutrition, Low BMI, and dietary supplementation assessments. No reports available on Pt's PO intake of meals at the time , will assess at F/U, however, states that Pt has been compliant with meals and ONS, according to Progress notes. I will revise and adjust -if necessary- the prescription of dietary supplements to support wound healing processes and compensate for poor or insuficient PO intake of meals. Pt is on Nasal Cannula, O2 saturation @ 100%, according to Physical Assessmenty History notes. 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 Pt's Low BMI seems to correspond to a natural body composition, and now exacerbated by a sudden loss of body weight and possibly chronic malnutrition, however, no signs of concern were mentioned in the Physical Assessment History or the Progress notes. Percent of energy/protein needs met: Prescribed Regular Diet provides for energy/protein needs (2,289 Kcal/89 g) during LOS; additionally, Dietary Supplements will compensate for possible poor or insufficient PO intake of meals, and sopport wound healing processes with 320 Kcal and 32 g of protein. Burn Absent Trauma Absent GI Symptoms None Food Allergy No Skin Integrity/Comment L-LE ischemia & surgical wounds. 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 Etiology PVD, PAD. As Evidenced by Signs and Symptoms L-LE ischemia. #1 Nutrition Diagnosis Malnutrition,Underweight Etiology Possibly related to chronic EtOH abuse. As Evidenced by Signs and Symptoms BMI: 18.4 Kg/m2. Pt states having, unintentionally, loss between 14 and 23 lb recently, and experiencing poor appetite, generalized edema, according to Physical Assessment History notes. Is patient on ventilator? No Is Patient Ambulatory and/or Out of Bed Yes REE-([place]-St. Jeor-ambulatory/OOB) [ 1328.769 [id number]] Calculation Used for Recommendations Kcal/kg Additional Notes Protein: 1.25-1.5 g/Kg ABW; 59 -71 g/day. Fluids: 1 ml/Kcal, or as per MD. Nutrition Intervention Change Diet Order: Continue Regular Diet. Add Supplement/Snack (indicate name/kcal Start 8 fl oz Ensure High /protein ) Protein; BID. Provides kCal: 320 Provides Protein (gm) 32 Goal #1 Support, through dietary supplementation, wound healing processes during LOS. Goal #2 Compensate, through dietary supplementation, for possible poor or insufficient PO intake of meals during LOS. Follow-Up By: 12/12/21 Additional Comments Continue monitoring food tolerance, %PO intake of meals and ONS, and BM.
--- NOTE | 2021-12-05 11:11 | Progress Note ---
Assessment and Plan Postoperative day #1 status post excision of left common femoral to left below- knee popliteal artery bypass graft. The patient is doing well. I have encouraged her to continue eating as much as possible as well as drinking Ensure shakes to increase her protein intake and assist with healing. I had a discussion with her about the possibility of discharge to a rehab facility as the patient has not walked since her initial surgery in October however the patient is adamant that she wants to go home. I will continue to attempt to encourage her to undergo rehab however I explained to her that it is her choice. She has a home wound VAC already which would not delay any discharge. Her length of stay will likely be determined by the need for antibiotics. I discussed this with the patient was expressed understanding and agrees. Subjective Date of service: 12/05/21 Interval history: The patient states she was having episodes of sharp pain in the leg and foot overnight however she states she feels much better today. She has no complaints at this time. Objective - Constitutional Vitals: Vital Signs - 12hr 12/04/21 12/04/21 12/04/21 23:15 23:24 23:27 Temperature 100.2 F H Pulse Rate 105 H 101 H Pulse Rate [ From Monitor] Respiratory 17 18 12 Rate Blood Pressure 106/40 O2 Sat by Pulse 100 99 Oximetry 12/04/21 12/04/21 12/04/21 23:30 23:38 23:45 Temperature 100.2 F H Pulse Rate 99 H 101 H Pulse Rate [ From Monitor] Respiratory 13 Rate Blood Pressure O2 Sat by Pulse 100 100 Oximetry 12/04/21 12/04/21 12/05/21 23:54 23:58 00:00 Temperature 99.6 F Pulse Rate 101 H Pulse Rate [ 101 H From Monitor] Respiratory 11 L 12 11 L Rate Blood Pressure 90/45 O2 Sat by Pulse 99 99 Oximetry 12/05/21 12/05/21 12/05/21 00:15 00:24 00:30 Temperature 98.8 F Pulse Rate 97 H 94 H 95 H Pulse Rate [ From Monitor] Respiratory 18 14 11 L Rate Blood Pressure 84/51 88/42 88/42 O2 Sat by Pulse 98 98 98 Oximetry 12/05/21 12/05/21 12/05/21 00:40 00:45 01:00 Temperature Pulse Rate 96 H 96 H 94 H Pulse Rate [ From Monitor] Respiratory 12 12 Rate Blood Pressure 88/42 94/45 O2 Sat by Pulse 97 98 Oximetry 12/05/21 12/05/21 12/05/21 01:15 01:30 01:45 Temperature Pulse Rate 96 H 97 H 95 H Pulse Rate [ From Monitor] Respiratory 10 L 15 11 L Rate Blood Pressure 94/45 100/52 100/52 O2 Sat by Pulse 98 98 98 Oximetry 12/05/21 12/05/21 12/05/21 02:00 02:15 02:30 Temperature Pulse Rate 95 H 95 H 91 H Pulse Rate [ From Monitor] Respiratory 11 L 14 11 L Rate Blood Pressure 97/48 97/48 102/50 O2 Sat by Pulse 99 98 99 Oximetry 12/05/21 12/05/21 12/05/21 02:45 03:00 03:15 Temperature Pulse Rate 91 H 92 H 93 H Pulse Rate [ From Monitor] Respiratory 12 14 13 Rate Blood Pressure 102/50 102/50 92/58 O2 Sat by Pulse 99 99 99 Oximetry 12/05/21 12/05/21 12/05/21 03:30 03:45 04:00 Temperature 98.2 F Pulse Rate 90 90 88 Pulse Rate [ 99 H From Monitor] Respiratory 11 L 12 11 L Rate Blood Pressure 86/48 86/48 86/46 O2 Sat by Pulse 100 99 99 Oximetry 12/05/21 12/05/21 12/05/21 04:15 04:30 04:32 Temperature Pulse Rate 89 101 H Pulse Rate [ From Monitor] Respiratory 10 L 12 14 Rate Blood Pressure 93/48 96/48 O2 Sat by Pulse 99 98 Oximetry 12/05/21 12/05/21 12/05/21 04:45 05:00 05:15 Temperature Pulse Rate 96 H 95 H 87 Pulse Rate [ From Monitor] Respiratory 11 L 10 L 13 Rate Blood Pressure 96/48 92/53 92/53 O2 Sat by Pulse 96 94 Oximetry 12/05/21 12/05/21 12/05/21 05:45 05:54 06:00 Temperature Pulse Rate 89 86 Pulse Rate [ From Monitor] Respiratory 15 12 10 L Rate Blood Pressure 84/49 104/50 O2 Sat by Pulse 98 94 Oximetry 12/05/21 12/05/21 12/05/21 06:15 06:24 06:30 Temperature Pulse Rate 85 87 Pulse Rate [ From Monitor] Respiratory 10 L 12 9 L Rate Blood Pressure 104/50 95/55 O2 Sat by Pulse 93 95 Oximetry 12/05/21 12/05/21 12/05/21 06:45 07:00 07:15 Temperature Pulse Rate 90 86 87 Pulse Rate [ From Monitor] Respiratory 9 L 8 L 9 L Rate Blood Pressure 95/55 102/51 102/51 O2 Sat by Pulse 95 96 96 Oximetry 12/05/21 12/05/21 12/05/21 07:31 07:45 08:00 Temperature 98.0 F Pulse Rate 99 H 84 84 Pulse Rate [ From Monitor] Respiratory 24 9 L 9 L Rate Blood Pressure 102/51 102/51 88/46 O2 Sat by Pulse 97 94 95 Oximetry 12/05/21 12/05/21 12/05/21 08:15 08:30 08:45 Temperature Pulse Rate 85 85 86 Pulse Rate [ From Monitor] Respiratory 8 L 7 L 7 L Rate Blood Pressure 88/46 98/49 98/49 O2 Sat by Pulse 96 96 97 Oximetry 12/05/21 12/05/21 12/05/21 09:00 09:15 09:31 Temperature Pulse Rate 85 92 H 89 Pulse Rate [ From Monitor] Respiratory 13 16 16 Rate Blood Pressure 104/50 104/50 104/50 O2 Sat by Pulse 98 99 99 Oximetry 12/05/21 12/05/21 12/05/21 09:45 10:01 10:15 Temperature Pulse Rate 85 88 90 Pulse Rate [ From Monitor] Respiratory 13 17 16 Rate Blood Pressure 104/50 89/42 89/42 O2 Sat by Pulse 99 99 98 Oximetry General appearance: Present: no acute distress - Respiratory Respiratory effort: normal - Breasts Breasts: deferred - Cardiovascular Rhythm: regular Extremities: normal temperature (The left foot is warm however the toes are somewhat cool but there are no cyanotic changes.), abnormal (Left groin wound VAC is intact and the left leg dressings are clean and intact) Extremity abnormal: edema (Left foot with edema), pulses diminished (Nonpalpable pedal pulses bilaterally however there are Doppler signals present) - Labs CBC & Chem 7: 12/05/21 04:45 12/05/21 04:45 Labs: Abnormal lab results 12/03/21 12/05/21 12/05/21 Range/Units 14:07 04:45 04:45 WBC 15.0 H (4.5-11.0) K/mm3 RBC 3.11 L (3.65-5.03) M/mm3 Hgb 8.3 L (10.1-14.3) gm/dl Hct 25.2 L D (30.3-42.9) % MCH 27 L (28-32) pg RDW 18.8 H (13.2-15.2) % Lymph % (Auto) 6.3 L (13.4-35.0) % Hart % (Auto) 7.4 H (0.0-7.3) % Lymph # (Auto) 0.9 L (1.2-5.4) K/mm3 Hart # (Auto) 1.1 H (0.0-0.8) K/mm3 Seg Neutrophils % 85.9 H (40.0-70.0) % Seg Neutrophils # 12.9 H (1.8-7.7) K/mm3 Potassium 3.5 L (3.6-5.0) mmol/L Chloride 107.1 H (98-107) mmol/L Creatinine 0.5 L (0.6-1.2) mg/dL Glucose 106 H (65-100) mg/dL Calcium 7.1 L D (8.4-10.2) mg/dL ALT 6 L (7-56) units/L Total Protein 3.9 L (6.3-8.2) g/dL Albumin 1.5 L (3.9-5) g/dL Crossmatch See Detail Medications & Allergies - Medications Allergies/Adverse Reactions: Allergies No Known Allergies Allergy (Verified 10/20/21 09:17) Home Medications: Home Medications Medication Instructions Recorded Confirmed Last Taken Type Apixaban [Eliquis] 2.5 mg PO Q12HR #60 tab 09/01/21 12/04/21 Unknown Rx AtorvaSTATin [Lipitor] 40 mg PO DAILY 09/01/21 12/04/21 08/31/21 History 1 tab Clopidogrel [Plavix] 75 mg PO QDAY #90 tablet 09/01/21 12/04/21 Unknown Rx Gabapentin 100 mg PO BID 09/01/21 12/04/21 08/31/21 History 2 tabs Pantoprazole [Protonix] 40 mg PO QDAY #90 tablet 09/01/21 12/04/21 Unknown Rx amLODIPine 5 mg PO DAILY 09/01/21 12/04/21 08/31/21 History 1 tab carvediloL [Coreg] 25 mg PO BID 09/01/21 12/04/21 08/31/21 History 2 tabs cilostazoL [Pletal] 50 mg PO BID 09/01/21 12/04/21 08/31/21 History 2 tabs traZODone [Desyrel] 100 mg PO QHS 09/01/21 12/04/21 08/31/21 History 1 tab Venlafaxine [Effexor] 75 mg PO DAILY 11/02/21 12/04/21 Unknown History Active Medications: Generic Name Dose Route Start Last Admin Trade Name Freq PRN Reason Stop Dose Admin Acetaminophen 650 mg 11/30/21 19:24 12/04/21 22:58 Acetaminophen 325 Mg Tab PO 650 mg Q4H PRN Administration Pain MILD(1-3)/Fever >100.5/GONZALEZ Apixaban 2.5 mg 12/05/21 10:00 12/05/21 10:18 Apixaban 2.5 Mg Tab PO 2.5 mg Q12HR SRAVAN Administration Protocol Aspirin 81 mg 12/04/21 14:00 12/05/21 10:17 Aspirin Ec 81 Mg Tab PO 81 mg QDAY SRAVAN Administration Cilostazol 50 mg 12/01/21 22:00 12/05/21 10:17 Cilostazol 100 Mg Tab PO 50 mg BID SRAVAN Administration Docusate Sodium 100 mg 12/01/21 22:00 12/05/21 10:17 Docusate Sodium 100 Mg Cap PO 100 mg BID SRAVAN Administration Gabapentin 100 mg 12/01/21 22:00 12/05/21 10:17 Gabapentin 100 Mg Cap PO 100 mg BID SRAVAN Administration Hydromorphone HCl 0.5 mg 12/01/21 10:42 12/05/21 05:54 Hydromorphone 1 Mg/1 Ml Inj IV 0.5 mg Q4H PRN Administration Pain , Severe (7-10) Hydromorphone HCl 0.5 mg 12/04/21 19:37 Hydromorphone 0.5 Mg/0.5 Ml Inj IV Q10MIN PRN Pain , Severe (7-10) Cefepime HCl 2 gm in 100 mls @ 200 mls/hr 12/01/21 10:00 12/05/21 10:16 Cefepime/Ns 2 Gm/100 Ml IV 200 mls/hr Q12H SRAVAN Administration Protocol Vancomycin HCl 1 gm in 250 mls @ 167.007 mls/hr 12/04/21 11:00 12/05/21 00:55 Vancomycin/Ns 1 Gm/250 Ml IV 167.007 mls/hr Q12H SRAVAN Administration Ondansetron HCl 4 mg 11/30/21 19:24 12/04/21 22:52 Ondansetron 4 Mg/2 Ml Inj IV 4 mg Q8H PRN Administration Nausea And Vomiting Oxycodone/Acetaminophen 2 tab 12/02/21 11:44 12/05/21 10:16 Oxycodone /Acetaminophen 5-325mg Tab PO 2 tab Q8H PRN Administration Pain, Moderate (4-6) Pantoprazole Sodium 40 mg 12/01/21 20:00 12/05/21 10:17 Pantoprazole 40 Mg Tab PO 40 mg QDAY SRAVAN Administration Sodium Chloride 10 ml 11/30/21 22:00 12/05/21 10:18 Sodium Chloride 0.9% 10 Ml Flush Syringe IV 10 ml BID SRAVAN Administration Sodium Chloride 10 ml 11/30/21 19:24 Sodium Chloride 0.9% 10 Ml Flush Syringe IV PRN PRN LINE FLUSH Trazodone HCl 100 mg 12/01/21 22:00 12/04/21 23:00 Trazodone 100 Mg Tab PO 100 mg QHS SRAVAN Administration Venlafaxine HCl 75 mg 12/01/21 20:00 12/05/21 10:18 Venlafaxine 75 Mg Tab PO 75 mg DAILY SRAVAN Administration HEART Score - HEART Score Troponin: Troponin T 0.119 ng/mL (0.00-0.029) H* 11/30/21 15:56
--- NOTE | 2021-12-05 11:30 | Progress Note ---
Assessment and Plan Cultures: 11/30/2021 blood culture: In process A/P: 56/F with peripheral vascular disease, tobacco abuse, peripheral neuropathy, prior CVA, recent admission for critical limb ischemia of LLE requiring L HEAD OF MARKETING ADOMETRY to popliteal bypass complicated by compartment syndrome requiring 4 compartment fasciotomy, woundVAC in groin region was discharged to rehab and sent home about 2 days prior to admission was admitted this time with AMS and weakness: #Septic shock: Chest x-ray without pneumonia, UA without any pyuria. Source could be wound infection causing a transient bacteremia. Follow-up blood cultu res. #Peripheral vascular disease, recent revascularization of LLE, compartment syndrome requiring fasciotomy #Acute anemia #SUSANA: Creatinine improving. Recs: Continue empiric cefepime, vancomycin Obtain repeat blood cultures given overnight fevers. Leukocytosis worsening may be reactive to having surgery done yesterday. Wound care Shannon Blake MD [facility], [place], [facility] ([facility] O: [phone] F: [phone] Subjective Date of service: 12/05/21 Interval history: Febrile last night after being largely afebrile. White count 15 now. Blood culture positive for gram-positive cocci in 1 of 4 bottles. She was taken to the OR yesterday for excision of the left infected femoral popliteal artery bypass graft and wound VAC placement Objective - Exam Narrative Exam: Physical Exam: Constitutional: Alert, cooperative. No acute distress Head, Ears, Nose: Normocephalic, atraumatic. Eyes: Conjunctivae/corneas clear. No icterus. No ptosis. Neck: Supple, no meningeal signs Cardiovascular: S1, S2 + Respiratory: Good air entry, clear to auscultation bilaterally GI: Soft, non-tender; bowel sounds normal. No peritoneal signs Musculoskeletal: LLE with dressing, left groin with wound VAC Skin: No rash or abscess Hem/Lymphatic: No palpable cervical or supraclavicular nodes. No lymphangitis Psych: Mood ok. Affect normal Neurological: Awake, alert, oriented. No gross abnormality - Constitutional Vitals: Vital Signs Temp Pulse Resp BP Pulse Ox 98.0 F 90 16 89/42 98 12/05/21 08:00 12/05/21 10:15 12/05/21 10:15 12/05/21 10:15 12/05/21 10:15 Temperature -Last 24 Hours Temperature 98.0 F Temperature 98.2 F Temperature 98.8 F Temperature 99.6 F Temperature 100.2 F Temperature 100.2 F Temperature 100.4 F Temperature 99.8 F Temperature 97.3 F Temperature 98.0 F Temperature 98.0 F Temperature 98.0 F Temperature 98.7 F Temperature 98.0 F Temperature 96.8 F Temperature 98.9 F Temperature 98.2 F - Labs CBC & Chem 7: 12/05/21 04:45 12/05/21 04:45 Labs: Abnormal lab results 12/03/21 12/05/21 12/05/21 Range/Units 14:07 04:45 04:45 WBC 15.0 H (4.5-11.0) K/mm3 RBC 3.11 L (3.65-5.03) M/mm3 Hgb 8.3 L (10.1-14.3) gm/dl Hct 25.2 L D (30.3-42.9) % MCH 27 L (28-32) pg RDW 18.8 H (13.2-15.2) % Lymph % (Auto) 6.3 L (13.4-35.0) % Elk % (Auto) 7.4 H (0.0-7.3) % Lymph # (Auto) 0.9 L (1.2-5.4) K/mm3 Elk # (Auto) 1.1 H (0.0-0.8) K/mm3 Seg Neutrophils % 85.9 H (40.0-70.0) % Seg Neutrophils # 12.9 H (1.8-7.7) K/mm3 Potassium 3.5 L (3.6-5.0) mmol/L Chloride 107.1 H (98-107) mmol/L Creatinine 0.5 L (0.6-1.2) mg/dL Glucose 106 H (65-100) mg/dL Calcium 7.1 L D (8.4-10.2) mg/dL ALT 6 L (7-56) units/L Total Protein 3.9 L (6.3-8.2) g/dL Albumin 1.5 L (3.9-5) g/dL Crossmatch See Detail
--- NOTE | 2021-12-05 12:51 | Post Anesthesia Evaluation ---
- Post Anesthesia Evaluation Patient Participated: Yes Airway Patent: Yes Stable Respiratory Function: Yes Nausea/Vomiting: No Temp > 96.8F: Yes Pain Manageable: Yes Adequeate Hydration: Yes Anesthesia Complications: No Block Receding Appropriately: Not Applicable Patient on Ventilator: No
[2021-12-05] MEDS: traZODone 100 MG TAB PO SCH (22:28)
[2021-12-06] MEDS: HYDROmorphone 1 MG/1 ML INJ IV PRN ×4 (00:40→21:16)
[2021-12-06 01:26] LABS: Blood Urea Nitrogen 10 mg/dL (7-17); Calcium 7.3 mg/dL (8.4-10.2); Hemolysis Index 11
[2021-12-06 01:29] LABS: BUN/Creatinine Ratio 17
[2021-12-06] MEDS ORDERED: POTASSIUM CHLORIDE ER 20 MEQ TAB PO NR (01:41)
[2021-12-06 07:45] LABS: Basophils # (Auto) 0.1 K/mm3 (0.0-0.1); Basophils % (Auto) 1.2 % (0.0-1.8); Eosinophils # (Auto) 0.4 K/mm3 (0.0-0.4); Eosinophils % (Auto) 4.7 % (0.0-4.3); Hematocrit 23.2 % (30.3-42.9); Hemoglobin 7.6 gm/dl (10.1-14.3); Lymphocytes # (Auto) 1.2 K/mm3 (1.2-5.4); Lymphocytes % (Auto) 13.6 % (13.4-35.0); Mean Corpuscular HGB Conc 33 % (30-34); Mean Corpuscular Volume 82 fl (79-97); Monocytes # (Auto) 0.9 K/mm3 (0.0-0.8); Platelet Count 308 K/mm3 (140-440); Red Blood Count 2.84 M/mm3 (3.65-5.03); Red Cell Distribution Width 19.5 % (13.2-15.2)
[2021-12-06 07:53] LABS: Alanine Aminotransferase 6 units/L (7-56); Albumin 1.6 g/dL (3.9-5); Blood Urea Nitrogen 9 mg/dL (7-17); Calcium 7.7 mg/dL (8.4-10.2); Hemolysis Index 2
[2021-12-06 07:56] LABS: BUN/Creatinine Ratio 15
[2021-12-06] MEDS: PANTOPRAZOLE 40 MG TAB PO SCH (10:07)
[2021-12-06] MEDS: VENLAFAXINE 75 MG TAB PO SCH (10:07)
[2021-12-06] MEDS: DOCUSATE SODIUM 100 MG CAP PO SCH ×2 (10:07→21:18)
[2021-12-06] MEDS: APIXABAN 2.5 MG TAB PO SCH ×2 (10:07→21:16)
[2021-12-06] MEDS: ASPIRIN EC 81 MG TAB PO SCH (10:07)
[2021-12-06] MEDS: GABAPENTIN 100 MG CAP PO SCH ×2 (10:07→21:15)
[2021-12-06] MEDS: CILOSTAZOL 100 MG TAB PO SCH ×2 (10:08→21:15)
[2021-12-06] MEDS: oxyCODONE /ACETAMINOPHEN 5-325MG TAB PO PRN ×2 (10:14→18:16)
[2021-12-06] MEDS: CEFEPIME/NS 2 GM/100 ML 2 GM/100 ML BAG IV SCH ×2 (10:14→21:15)
[2021-12-06] MEDS: VANCOMYCIN/NS 1 GM/250 ML 1 GM/250 ML BAG IV SCH ×2 (10:17→22:18)
--- NOTE | 2021-12-06 12:12 | Progress Note ---
<VINCENT KERNS - Last Filed: 12/06/21 17:53> Assessment and Plan Assessment and plan: This is a 56-year-old female with severe PVD, CAD, HTN, HLD, anemia, EtOH and tobacco abuse who is s/p left femoral to below the knee popliteal artery bypass complicated by compartment syndrome s/p fasciotomy and right leg revasculariz ation who was discharged to SNF after almost 3 week stay via EMS for altered mental status and was hypoentive in ED despite fluid resuscitation was eventually started on Levophed with a placement of central line. Patient was also anemic with a hemoglobin of 6.2 and 1 unit PRBC was transfused. She also had leukocytosis, acute kidney injury, elevated troponin and purulent drainage from wounds. Patient was admitted to the hospital service with consult to vascular surgery, ID and CCM with Sepsis. Hospital Course to Date: 12/01: Additional LR boluses, KCL 40 PO, prn diludid given for pain. Wean levophed as tolerated. 12/02: Adjustment to pain regimen, CTA pelvis and lower extremities with contrast obtained. Phosphorus and magnesium repleted 12/03: No vascular interventions till Saturday/Saturday. Pain better controlled. No acute events overnight. Transfer to [facility] 12/04: OR today for surgery by IR. Am labs ordered. 12/05/21-patient is seen at bedside. Patient alert and oriented. V/S stable. She is s/p excision of Infected Left Femoral to Below-Knee Popliteal Artery Bypass Graft-done 12/04/21. Wound VAC Placement left groin. patient reports pain left. Unable to feel left pedal pulse with doppler. patient's nurse at bedside at the time of assessment. I spoke to Dr Edge-vascular surgeon-he agreed to come and re-assess pt. 12/06: Remains afebrile and hemodynamicaly stable. Vascular surgery recommendations noted. Plan to discharge back to subacute rehab when okayed by ID, awaiting antibiotics recommendations. Assessment and Plan: Septic shock (POA), leukocytosis(improved) -Presented with leukocytosis, acute kidney injury, purulent drainage from leg wounds -Infectious disease consulted, appreciate recommendations -Antibiotic therapy with cefepime and vancomycin -WOCN consulted for wound care -f/u blood culture -Monitor WBC and temperature curve Severe PVD s/p left femoral to below-knee popliteal artery bypass with fasciotomy, right lower extremity vascularization -Presented with Presented with leukocytosis, and purulent drainage from leg wounds -CTA BLE shows air within the left femoral to popliteal artery bypass graft as well as in fluid collections along the graft. 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 -LLE wound vac in placed, no s/s of any complications noted -Continue ASA,Eliquis, Pletal, and gabapentin -Vascular checks per protocol -Continue wound care per Vascular Surgery -Wound Care consulted Acute Anemia -Presented with low H&H, s/p 5units of PRBCs -H&H stable this am -Continue to monitor for signs of bleeding -Transfuse for hgb less than 7 Neuro: h/o CVA, Depression, EtOH abuse -Reorientation as needed -Maintain sleep-wake cycle -As needed analgesia -Resumed home meds Cardiac: Hypertension -Presented with hypotension most likelu due to sepsis required vasopressors -BP stable now -Continue Blood pressure monitoring per protocol -Maintain SBP less than 120 Nicotine Dependence -Per patient last cigarettes was a week ago -Smoking cessation education provided, patient voiced understanding and agreed with the info provided -Admit that quitting is hard and she still having urges, Nicotine patch ordered GI: Moderate Protein calorie malnutrition -Regular diet with nutritional supplementation -Nutrition consulted -BR: colace : Acute kidney injury secondary to vasomotor nephropathy, Hypokalemia(resolved) -Renal function back to baseline -Monitor intake and output -Renally dose medications -Avoid nephrotoxic medications -Trend BMP GI/DVT Prophylaxis -PPI-Protonix -On Eliquis Advance Care Planning -Disease education data, care plan, diagnoses, and prognosis were discussed with patient at the bedside. Patient is full code. Patient acknowledged understanding and agreement with current care plan. -Plan to discharge back to subacute rehab when okayed by ID, awaiting antibiotics recommendations The high probability of a clinically significant, sudden or life threatening deterioration of the [multiple] system(s) required my full and direct attention, intervention and personal management. The aggregate critical care time was [60] minutes. This time is in addition to time spent performing reported procedures but includes the following: [x] Data Review and interpretation [x] Patient assessment and monitoring of vital signs [x] Documentation [x] Medication orders and management Disposition Plan: IMCU Total Time Spent with Patient (Minutes): 60 History Interval history: Patient seen and examined at the bedside. Fully AAO, on RA, c/o of LLE pain. LLE clean dressing with wound vac noted, no s/s of any complications appreciated. RUTH overnight Hospitalist Physical - Constitutional Vitals: Temp Pulse Resp BP Pulse Ox 98.9 F 90 11 L 116/61 95 12/06/21 11:46 12/06/21 11:30 12/06/21 11:30 12/06/21 11:30 12/06/21 11:30 General appearance: Present: no acute distress, cachectic - EENT Eyes: Present: PERRL, EOM intact ENT: hearing intact - Neck Neck: Present: normal ROM - Respiratory Respiratory effort: normal Respiratory: bilateral: diminished - Cardiovascular Rhythm: regular Heart Sounds: Present: S1 & S2 - Extremities Extremities: no ischemia, pulses intact, pulses symmetrical, abnormal (LLE clean and intact dressing with Wound vac. No complications noted) Extremity abnormal: edema - Peripheral Assessment Left Lower Extremity Edema Type: Pitting Edema Degree: 3+ Capillary Refill: < 3 seconds Skin Temperature: Warm Peripheral Pulses: abnormal (LLE pulses appreciated with a doppler) - Abdominal General gastrointestinal: soft, non-distended, normal bowel sounds - Integumentary Integumentary: Present: warm, dry - Psychiatric Psychiatric: appropriate mood/affect, cooperative - Neurologic Neurologic: moves all extremities (LLE with limited ROM) - Allied Health Allied health notes reviewed: nursing, case management HEART Score - HEART Score Troponin: Troponin T 0.119 ng/mL (0.00-0.029) H* 11/30/21 15:56 Results - Labs CBC & Chem 7: 12/06/21 07:15 12/06/21 07:15 Labs: Laboratory Last Values WBC 9.2 K/mm3 (4.5-11.0) 12/06/21 07:15 RBC 2.84 M/mm3 (3.65-5.03) L 12/06/21 07:15 Hgb 7.6 gm/dl (10.1-14.3) L 12/06/21 07:15 Hct 23.2 % (30.3-42.9) L 12/06/21 07:15 MCV 82 fl (79-97) 12/06/21 07:15 MCH 27 pg (28-32) L 12/06/21 07:15 MCHC 33 % (30-34) 12/06/21 07:15 RDW 19.5 % (13.2-15.2) H 12/06/21 07:15 Plt Count 308 K/mm3 (140-440) 12/06/21 07:15 Lymph % (Auto) 13.6 % (13.4-35.0) 12/06/21 07:15 [place] % (Auto) 10.0 % (0.0-7.3) H 12/06/21 07:15 Eos % (Auto) 4.7 % (0.0-4.3) H 12/06/21 07:15 Baso % (Auto) 1.2 % (0.0-1.8) 12/06/21 07:15 Lymph # (Auto) 1.2 K/mm3 (1.2-5.4) 12/06/21 07:15 [place] # (Auto) 0.9 K/mm3 (0.0-0.8) H 12/06/21 07:15 Eos # (Auto) 0.4 K/mm3 (0.0-0.4) 12/06/21 07:15 Baso # (Auto) 0.1 K/mm3 (0.0-0.1) 12/06/21 07:15 Add Manual Diff Complete 12/01/21 04:33 Total Counted 100 12/01/21 04:33 Seg Neutrophils % 70.5 % (40.0-70.0) H 12/06/21 07:15 Seg Neuts % (Manual) 82.0 % (40.0-70.0) H 12/01/21 04:33 Band Neutrophils % 8.0 % 12/01/21 04:33 Lymphocytes % (Manual) 5.0 % (13.4-35.0) L 12/01/21 04:33 Reactive Lymphs % (Man) 0 % 12/01/21 04:33 Monocytes % (Manual) 4.0 % (0.0-7.3) 12/01/21 04:33 Eosinophils % (Manual) 0 % (0.0-4.3) 12/01/21 04:33 Basophils % (Manual) 0 % (0.0-1.8) 12/01/21 04:33 Metamyelocytes % 1.0 % 12/01/21 04:33 Myelocytes % 0 % 12/01/21 04:33 Promyelocytes % 0 % 12/01/21 04:33 Blast Cells % 0 % 12/01/21 04:33 Nucleated RBC % Not Reportable 12/01/21 04:33 Seg Neutrophils # 6.5 K/mm3 (1.8-7.7) 12/06/21 07:15 Seg Neutrophils # Man 17.0 K/mm3 (1.8-7.7) H 12/01/21 04:33 Band Neutrophils # 1.7 K/mm3 12/01/21 04:33 Lymphocytes # (Manual) 1.0 K/mm3 (1.2-5.4) L 12/01/21 04:33 Abs React Lymphs (Man) 0.0 K/mm3 12/01/21 04:33 Monocytes # (Manual) 0.8 K/mm3 (0.0-0.8) 12/01/21 04:33 Eosinophils # (Manual) 0.0 K/mm3 (0.0-0.4) 12/01/21 04:33 Basophils # (Manual) 0.0 K/mm3 (0.0-0.1) 12/01/21 04:33 Metamyelocytes # 0.2 K/mm3 12/01/21 04:33 Myelocytes # 0.0 K/mm3 12/01/21 04:33 Promyelocytes # 0.0 K/mm3 12/01/21 04:33 Blast Cells # 0.0 K/mm3 12/01/21 04:33 WBC Morphology Not Reportable 12/01/21 04:33 Hypersegmented Neuts Not Reportable 12/01/21 04:33 Hyposegmented Neuts Not Reportable 12/01/21 04:33 Hypogranular Neuts Not Reportable 12/01/21 04:33 Smudge Cells Not Reportable 12/01/21 04:33 Toxic Granulation Not Reportable 12/01/21 04:33 Toxic Vacuolation Not Reportable 12/01/21 04:33 Dohle Bodies Not Reportable 12/01/21 04:33 Pelger-Huet Anomaly Not Reportable 12/01/21 04:33 Mary Rods Not Reportable 12/01/21 04:33 Platelet Estimate Consistent w auto 12/01/21 04:33 Clumped Platelets Not Reportable 12/01/21 04:33 Plt Clumps, EDTA Not Reportable 12/01/21 04:33 Large Platelets Not Reportable 12/01/21 04:33 Giant Platelets Not Reportable 12/01/21 04:33 Platelet Satelliting Not Reportable 12/01/21 04:33 Plt Morphology Comment Not Reportable 12/01/21 04:33 RBC Morphology Not Reportable 12/01/21 04:33 Dimorphic RBCs Not Reportable 12/01/21 04:33 Polychromasia Not Reportable 12/01/21 04:33 Hypochromasia 2+ 12/01/21 04:33 Poikilocytosis Few 12/01/21 04:33 Anisocytosis 1+ 12/01/21 04:33 Microcytosis 1+ 12/01/21 04:33 Macrocytosis Not Reportable 12/01/21 04:33 Spherocytes Not Reportable 12/01/21 04:33 Pappenheimer Bodies Not Reportable 12/01/21 04:33 Sickle Cells Not Reportable 12/01/21 04:33 Target Cells Not Reportable 12/01/21 04:33 Tear Drop Cells Not Reportable 12/01/21 04:33 Ovalocytes Few 12/01/21 04:33 Helmet Cells Not Reportable 12/01/21 04:33 [place] Bodies Not Reportable 12/01/21 04:33 [place] Rings Not Reportable 12/01/21 04:33 [place] Cells Not Reportable 12/01/21 04:33 Bite Cells Not Reportable 12/01/21 04:33 Crenated Cell Not Reportable 12/01/21 04:33 Elliptocytes Rare 12/01/21 04:33 Acanthocytes (Spur) Not Reportable 12/01/21 04:33 Rouleaux Not Reportable 12/01/21 04:33 Hemoglobin C Crystals Not Reportable 12/01/21 04:33 Schistocytes Not Reportable 12/01/21 04:33 Malaria parasites Not Reportable 12/01/21 04:33 Kvng Bodies Not Reportable 12/01/21 04:33 Hem Pathologist Commnt No 12/01/21 04:33 PT 14.9 Sec. (12.2-14.9) 12/04/21 04:35 INR 1.05 (0.87-1.13) 12/04/21 04:35 APTT 43.1 Sec. (24.2-36.6) H 11/30/21 15:56 VBG pH 7.509 (7.320-7.420) H 11/30/21 15:57 Sodium 139 mmol/L (137-145) 12/06/21 07:15 Potassium 3.6 mmol/L (3.6-5.0) 12/06/21 07:15 Chloride 109.4 mmol/L (98-107) H 12/06/21 07:15 Carbon Dioxide 23 mmol/L (22-30) 12/06/21 07:15 Anion Gap 10 mmol/L 12/06/21 07:15 BUN 9 mg/dL (7-17) 12/06/21 07:15 Creatinine 0.6 mg/dL (0.6-1.2) 12/06/21 07:15 Estimated GFR > 60 ml/min 12/06/21 07:15 BUN/Creatinine Ratio 15 % 12/06/21 07:15 Glucose 83 mg/dL (65-100) 12/06/21 07:15 Lactic Acid 1.20 mmol/L (0.7-2.0) 11/30/21 17:23 Calcium 7.7 mg/dL (8.4-10.2) L 12/06/21 07:15 Phosphorus 3.20 mg/dL (2.5-4.5) 12/05/21 13:43 Magnesium 1.80 mg/dL (1.7-2.3) 12/03/21 04:24 Total Bilirubin 0.30 mg/dL (0.1-1.2) 12/06/21 07:15 AST 14 units/L (5-40) 12/06/21 07:15 ALT 6 units/L (7-56) L 12/06/21 07:15 Alkaline Phosphatase 87 units/L (35-129) 12/06/21 07:15 Troponin T 0.119 ng/mL (0.00-0.029) H* 11/30/21 15:56 Total Protein 4.3 g/dL (6.3-8.2) L 12/06/21 07:15 Albumin 1.6 g/dL (3.9-5) L 12/06/21 07:15 Albumin/Globulin Ratio 0.6 % 12/06/21 07:15 Triglycerides 108 mg/dL (2-149) 11/30/21 15:56 Cholesterol 82 mg/dL (50-199) 11/30/21 15:56 LDL Cholesterol Direct 38 mg/dL (50-130) L 11/30/21 15:56 HDL Cholesterol 28 mg/dL (40-59) L 11/30/21 15:56 Cholesterol/HDL Ratio 2.92 % 11/30/21 15:56 TSH 1.870 mlU/mL (0.270-4.200) 11/30/21 15:57 Urine Color Yellow (Yellow) 11/30/21 02:50 Urine Turbidity Clear (Clear) 11/30/21 02:50 Urine pH 6.0 (5.0-7.0) 11/30/21 02:50 Ur Specific [place] 1.005 (1.003-1.030) 11/30/21 02:50 Urine Protein <15 mg/dl mg/dL (Negative) 11/30/21 02:50 Urine Glucose (UA) Neg mg/dL (Negative) 11/30/21 02:50 Urine Ketones Neg mg/dL (Negative) 11/30/21 02:50 Urine Blood Sm (Negative) 11/30/21 02:50 Urine Nitrite Neg (Negative) 11/30/21 02:50 Urine Bilirubin Neg (Negative) 11/30/21 02:50 Urine Urobilinogen < 2.0 mg/dL (<2.0) 11/30/21 02:50 Ur Leukocyte Esterase Neg (Negative) 11/30/21 02:50 Urine WBC (Auto) 2.0 /HPF (0.0-6.0) 11/30/21 02:50 Urine RBC (Auto) 2.0 /HPF (0.0-6.0) 11/30/21 02:50 U Epithel Cells (Auto) 1.0 /HPF (0-13.0) 11/30/21 02:50 Urine Bacteria (Auto) 1+ /HPF (Negative) 11/30/21 02:50 Urine Yeast (Budding) 1+ /HPF 11/30/21 02:50 Vancomycin Trough 5.3 ug/mL (5.0-20.0) 12/03/21 21:17 Blood Type O POSITIVE 12/03/21 14:07 Antibody Screen Negative 12/03/21 14:07 Crossmatch See Detail 12/03/21 14:07 Microbiology: Microbiology 11/30/21 15:56 Peripheral/Venous Blood Culture - Final NO GROWTH AFTER 5 DAYS 12/04/21 Unknown Other (Please Specify:) - Wound Surgical Culture - Preliminary Gram Negative Edis 12/05/21 13:43 Peripheral/Venous Blood Culture - Preliminary Culture in Progress 12/05/21 13:49 Peripheral/Venous Blood Culture - Preliminary Culture in Progress Victor/IV: Voiding Method External Female Catheter Active Medications - Current Medications Current Medications: Generic Name Dose Route Start Last Admin Trade Name Freq PRN Reason Stop Dose Admin Acetaminophen 650 mg 11/30/21 19:24 12/04/21 22:58 Acetaminophen 325 Mg Tab PO 650 mg Q4H PRN Administration Pain MILD(1-3)/Fever >100.5/[id number] Apixaban 2.5 mg 12/05/21 10:00 12/06/21 10:07 Apixaban 2.5 Mg Tab PO 2.5 mg Q12HR SRAVAN Administration Protocol Aspirin 81 mg 12/04/21 14:00 12/06/21 10:07 Aspirin Ec 81 Mg Tab PO 81 mg QDAY SRAVAN Administration Cilostazol 50 mg 12/01/21 22:00 12/06/21 10:08 Cilostazol 100 Mg Tab PO 50 mg BID SRAVAN Administration Docusate Sodium 100 mg 12/01/21 22:00 12/06/21 10:07 Docusate Sodium 100 Mg Cap PO 100 mg BID SRAVAN Administration Gabapentin 100 mg 12/01/21 22:00 12/06/21 10:07 Gabapentin 100 Mg Cap PO 100 mg BID SRAVAN Administration Hydromorphone HCl 0.5 mg 12/01/21 10:42 12/06/21 08:39 Hydromorphone 1 Mg/1 Ml Inj IV 0.5 mg Q4H PRN Administration Pain , Severe (7-10) Cefepime HCl 2 gm in 100 mls @ 200 mls/hr 12/01/21 10:00 12/06/21 10:14 Cefepime/Ns 2 Gm/100 Ml IV 200 mls/hr Q12H SRAVAN Administration Protocol Vancomycin HCl 1 gm in 250 mls @ 167.007 mls/hr 12/04/21 11:00 12/06/21 10:17 Vancomycin/Ns 1 Gm/250 Ml IV 167.007 mls/hr Q12H SRAVAN Administration Ondansetron HCl 4 mg 11/30/21 19:24 12/04/21 22:52 Ondansetron 4 Mg/2 Ml Inj IV 4 mg Q8H PRN Administration Nausea And Vomiting Oxycodone/Acetaminophen 2 tab 12/02/21 11:44 12/06/21 10:14 Oxycodone /Acetaminophen 5-325mg Tab PO 2 tab Q8H PRN Administration Pain, Moderate (4-6) Pantoprazole Sodium 40 mg 12/01/21 20:00 12/06/21 10:07 Pantoprazole 40 Mg Tab PO 40 mg QDAY SRAVAN Administration Sodium Chloride 10 ml 11/30/21 22:00 12/06/21 10:17 Sodium Chloride 0.9% 10 Ml Flush Syringe IV 10 ml BID SRAVAN Administration Sodium Chloride 10 ml 11/30/21 19:24 Sodium Chloride 0.9% 10 Ml Flush Syringe IV PRN PRN LINE FLUSH Trazodone HCl 100 mg 12/01/21 22:00 12/05/21 22:28 Trazodone 100 Mg Tab PO 100 mg QHS SRAVAN Administration Venlafaxine HCl 75 mg 12/01/21 20:00 12/06/21 10:07 Venlafaxine 75 Mg Tab PO 75 mg DAILY SRAVAN Administration Nutrition/Malnutrition Assess - Dietary Evaluation Nutrition/Malnutrition Findings: Nutrition Notes Start: 12/05/21 15:54 Freq: Status: Active Protocol: Document 12/05/21 15:54 MERARI (Rec: 12/05/21 16:47 MERARI [id number]) Nutrition Notes Need for Assessment generated from: MD Order,blow molder,MST Initial or Follow up Assessment Current Diagnosis Acute Kidney Injury,Sepsis, Malnutrition Other Pertinent Diagnosis Metabolic Encephalopathy, PAD s/p Revascularization, PVD, L- LE Ischemia, .. Current Diet Regular Diet + D Suppl (since B 12/05). Labs/Tests 12/05: K 3.5, Cl 107.1, Crea 0 .5, Glu 106, Ca 7.1. Pertinent Medications 12/05: Nutritionally unremarkable. Height 5 ft 3 in Weight 47.3 kg [place] Body Weight (kg) 52.27 BMI 18.4 Intake Prior to Admission Poor Weight change and time frame Pt states having, unintentionally, loss between 14 and 23 lb recently. Weight Status Underweight Subjective/Other Information RD consult for risk of malnutrition, Low BMI, and dietary supplementation assessments. No reports available on Pt's PO intake of meals at the time , will assess at F/U, however, states that Pt has been compliant with meals and ONS, according to Progress notes. I will revise and adjust -if necessary- the prescription of dietary supplements to support wound healing processes and compensate for poor or insuficient PO intake of meals. Pt is on Nasal Cannula, O2 saturation @ 100%, according to Physical Assessmenty History notes. 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 Pt's Low BMI seems to correspond to a natural body composition, and now exacerbated by a sudden loss of body weight and possibly chronic malnutrition, however, no signs of concern were mentioned in the Physical Assessment History or the Progress notes. Percent of energy/protein needs met: Prescribed Regular Diet provides for energy/protein needs (2,289 Kcal/89 g) during LOS; additionally, Dietary Supplements will compensate for possible poor or insufficient PO intake of meals, and sopport wound healing processes with 320 Kcal and 32 g of protein. Burn Absent Trauma Absent GI Symptoms None Food Allergy No Skin Integrity/Comment L-LE ischemia & surgical wounds. Minimum of two criteria Yes Energy Intake (non-severe) <75% Estimated Energy Requirement >7 days Interpretation of Weight Loss (severe) >5% in 1 month Fluid Accumulation Mild (non-severe) Reduced Mysql Developer Strength N/A (non-severe) Protein-Calorie Malnutrition Severe #2 Nutrition Diagnosis Increased nutrient needs ( specify in comment below) Comments: Protein to support wound healing processes. Etiology PVD, PAD. As Evidenced by Signs and Symptoms L-LE ischemia. #1 Nutrition Diagnosis Malnutrition,Underweight Etiology Possibly related to chronic EtOH abuse. As Evidenced by Signs and Symptoms BMI: 18.4 Kg/m2. Pt states having, unintentionally, loss between 14 and 23 lb recently, and experiencing poor appetite, generalized edema, according to Physical Assessment History notes. Is patient on ventilator? No Is Patient Ambulatory and/or Out of Bed Yes REE-([facility]-ambulatory/OOB) [ 1328.769 [id number]] Calculation Used for Recommendations Kcal/kg Additional Notes Protein: 1.25-1.5 g/Kg ABW; 59 -71 g/day. Fluids: 1 ml/Kcal, or as per MD. Nutrition Intervention Change Diet Order: Continue Regular Diet. Add Supplement/Snack (indicate name/kcal Start 8 fl oz Ensure High /protein ) Protein; BID. Provides kCal: 320 Provides Protein (gm) 32 Goal #1 Support, through dietary supplementation, wound healing processes during LOS. Goal #2 Compensate, through dietary supplementation, for possible poor or insufficient PO intake of meals during LOS. Follow-Up By: 12/12/21 Additional Comments Continue monitoring food tolerance, %PO intake of meals and ONS, and BM. <ARNOLD WELCH - Last Filed: 12/07/21 07:11> Assessment and Plan Assessment and plan: I saw and evaluated the patient. I agree with the findings and the plan of care as documented in the Nurse Practitioner's~note, with the following corrections and additions. Hospitalist Physical - Constitutional Vitals: Temp Pulse Resp BP Pulse Ox 98.7 F 89 15 144/72 98 12/07/21 04:00 12/07/21 07:00 12/07/21 07:00 12/07/21 07:00 12/07/21 07:00 HEART Score - HEART Score Troponin: Troponin T 0.119 ng/mL (0.00-0.029) H* 11/30/21 15:56 Results - Labs CBC & Chem 7: 12/07/21 04:46 12/07/21 04:46 Labs: Laboratory Last Values WBC 9.0 K/mm3 (4.5-11.0) 12/07/21 04:46 RBC 2.98 M/mm3 (3.65-5.03) L 12/07/21 04:46 Hgb 8.2 gm/dl (10.1-14.3) L 12/07/21 04:46 Hct 24.5 % (30.3-42.9) L 12/07/21 04:46 MCV 82 fl (79-97) 12/07/21 04:46 MCH 27 pg (28-32) L 12/07/21 04:46 MCHC 33 % (30-34) 12/07/21 04:46 RDW 19.1 % (13.2-15.2) H 12/07/21 04:46 Plt Count 338 K/mm3 (140-440) 12/07/21 04:46 Lymph % (Auto) 13.6 % (13.4-35.0) 12/06/21 07:15 [place] % (Auto) 10.0 % (0.0-7.3) H 12/06/21 07:15 Eos % (Auto) 4.7 % (0.0-4.3) H 12/06/21 07:15 Baso % (Auto) 1.2 % (0.0-1.8) 12/06/21 07:15 Lymph # (Auto) 1.2 K/mm3 (1.2-5.4) 12/06/21 07:15 [place] # (Auto) 0.9 K/mm3 (0.0-0.8) H 12/06/21 07:15 Eos # (Auto) 0.4 K/mm3 (0.0-0.4) 12/06/21 07:15 Baso # (Auto) 0.1 K/mm3 (0.0-0.1) 12/06/21 07:15 Add Manual Diff Complete 12/01/21 04:33 Total Counted 100 12/01/21 04:33 Seg Neutrophils % 70.5 % (40.0-70.0) H 12/06/21 07:15 Seg Neuts % (Manual) 82.0 % (40.0-70.0) H 12/01/21 04:33 Band Neutrophils % 8.0 % 12/01/21 04:33 Lymphocytes % (Manual) 5.0 % (13.4-35.0) L 12/01/21 04:33 Reactive Lymphs % (Man) 0 % 12/01/21 04:33 Monocytes % (Manual) 4.0 % (0.0-7.3) 12/01/21 04:33 Eosinophils % (Manual) 0 % (0.0-4.3) 12/01/21 04:33 Basophils % (Manual) 0 % (0.0-1.8) 12/01/21 04:33 Metamyelocytes % 1.0 % 12/01/21 04:33 Myelocytes % 0 % 12/01/21 04:33 Promyelocytes % 0 % 12/01/21 04:33 Blast Cells % 0 % 12/01/21 04:33 Nucleated RBC % Not Reportable 12/01/21 04:33 Seg Neutrophils # 6.5 K/mm3 (1.8-7.7) 12/06/21 07:15 Seg Neutrophils # Man 17.0 K/mm3 (1.8-7.7) H 12/01/21 04:33 Band Neutrophils # 1.7 K/mm3 12/01/21 04:33 Lymphocytes # (Manual) 1.0 K/mm3 (1.2-5.4) L 12/01/21 04:33 Abs React Lymphs (Man) 0.0 K/mm3 12/01/21 04:33 Monocytes # (Manual) 0.8 K/mm3 (0.0-0.8) 12/01/21 04:33 Eosinophils # (Manual) 0.0 K/mm3 (0.0-0.4) 12/01/21 04:33 Basophils # (Manual) 0.0 K/mm3 (0.0-0.1) 12/01/21 04:33 Metamyelocytes # 0.2 K/mm3 12/01/21 04:33 Myelocytes # 0.0 K/mm3 12/01/21 04:33 Promyelocytes # 0.0 K/mm3 12/01/21 04:33 Blast Cells # 0.0 K/mm3 12/01/21 04:33 WBC Morphology Not Reportable 12/01/21 04:33 Hypersegmented Neuts Not Reportable 12/01/21 04:33 Hyposegmented Neuts Not Reportable 12/01/21 04:33 Hypogranular Neuts Not Reportable 12/01/21 04:33 Smudge Cells Not Reportable 12/01/21 04:33 Toxic Granulation Not Reportable 12/01/21 04:33 Toxic Vacuolation Not Reportable 12/01/21 04:33 Dohle Bodies Not Reportable 12/01/21 04:33 Pelger-Huet Anomaly Not Reportable 12/01/21 04:33 Mary Rods Not Reportable 12/01/21 04:33 Platelet Estimate Consistent w auto 12/01/21 04:33 Clumped Platelets Not Reportable 12/01/21 04:33 Plt Clumps, EDTA Not Reportable 12/01/21 04:33 Large Platelets Not Reportable 12/01/21 04:33 Giant Platelets Not Reportable 12/01/21 04:33 Platelet Satelliting Not Reportable 12/01/21 04:33 Plt Morphology Comment Not Reportable 12/01/21 04:33 RBC Morphology Not Reportable 12/01/21 04:33 Dimorphic RBCs Not Reportable 12/01/21 04:33 Polychromasia Not Reportable 12/01/21 04:33 Hypochromasia 2+ 12/01/21 04:33 Poikilocytosis Few 12/01/21 04:33 Anisocytosis 1+ 12/01/21 04:33 Microcytosis 1+ 12/01/21 04:33 Macrocytosis Not Reportable 12/01/21 04:33 Spherocytes Not Reportable 12/01/21 04:33 Pappenheimer Bodies Not Reportable 12/01/21 04:33 Sickle Cells Not Reportable 12/01/21 04:33 Target Cells Not Reportable 12/01/21 04:33 Tear Drop Cells Not Reportable 12/01/21 04:33 Ovalocytes Few 12/01/21 04:33 Helmet Cells Not Reportable 12/01/21 04:33 [place] Bodies Not Reportable 12/01/21 04:33 [place] Rings Not Reportable 12/01/21 04:33 [place] Cells Not Reportable 12/01/21 04:33 Bite Cells Not Reportable 12/01/21 04:33 Crenated Cell Not Reportable 12/01/21 04:33 Elliptocytes Rare 12/01/21 04:33 Acanthocytes (Spur) Not Reportable 12/01/21 04:33 Rouleaux Not Reportable 12/01/21 04:33 Hemoglobin C Crystals Not Reportable 12/01/21 04:33 Schistocytes Not Reportable 12/01/21 04:33 Malaria parasites Not Reportable 12/01/21 04:33 Kvng Bodies Not Reportable 12/01/21 04:33 Hem Pathologist Commnt No 12/01/21 04:33 PT 14.9 Sec. (12.2-14.9) 12/04/21 04:35 INR 1.05 (0.87-1.13) 12/04/21 04:35 APTT 43.1 Sec. (24.2-36.6) H 11/30/21 15:56 VBG pH 7.509 (7.320-7.420) H 11/30/21 15:57 Sodium 142 mmol/L (137-145) 12/07/21 04:46 Potassium 4.4 mmol/L (3.6-5.0) D 12/07/21 04:46 Chloride 111.0 mmol/L (98-107) H 12/07/21 04:46 Carbon Dioxide 24 mmol/L (22-30) 12/07/21 04:46 Anion Gap 11 mmol/L 12/07/21 04:46 BUN 8 mg/dL (7-17) 12/07/21 04:46 Creatinine 0.6 mg/dL (0.6-1.2) 12/07/21 04:46 Estimated GFR > 60 ml/min 12/07/21 04:46 BUN/Creatinine Ratio 13 % 12/07/21 04:46 Glucose 87 mg/dL (65-100) 12/07/21 04:46 Lactic Acid 1.20 mmol/L (0.7-2.0) 11/30/21 17:23 Calcium 8.2 mg/dL (8.4-10.2) L 12/07/21 04:46 Phosphorus 3.20 mg/dL (2.5-4.5) 12/05/21 13:43 Magnesium 1.80 mg/dL (1.7-2.3) 12/03/21 04:24 Total Bilirubin 0.30 mg/dL (0.1-1.2) 12/06/21 07:15 AST 14 units/L (5-40) 12/06/21 07:15 ALT 6 units/L (7-56) L 12/06/21 07:15 Alkaline Phosphatase 87 units/L (35-129) 12/06/21 07:15 Troponin T 0.119 ng/mL (0.00-0.029) H* 11/30/21 15:56 Total Protein 4.3 g/dL (6.3-8.2) L 12/06/21 07:15 Albumin 1.6 g/dL (3.9-5) L 12/06/21 07:15 Albumin/Globulin Ratio 0.6 % 12/06/21 07:15 Triglycerides 108 mg/dL (2-149) 11/30/21 15:56 Cholesterol 82 mg/dL (50-199) 11/30/21 15:56 LDL Cholesterol Direct 38 mg/dL (50-130) L 11/30/21 15:56 HDL Cholesterol 28 mg/dL (40-59) L 11/30/21 15:56 Cholesterol/HDL Ratio 2.92 % 11/30/21 15:56 TSH 1.870 mlU/mL (0.270-4.200) 11/30/21 15:57 Urine Color Yellow (Yellow) 11/30/21 02:50 Urine Turbidity Clear (Clear) 11/30/21 02:50 Urine pH 6.0 (5.0-7.0) 11/30/21 02:50 Ur Specific Taylor 1.005 (1.003-1.030) 11/30/21 02:50 Urine Protein <15 mg/dl mg/dL (Negative) 11/30/21 02:50 Urine Glucose (UA) Neg mg/dL (Negative) 11/30/21 02:50 Urine Ketones Neg mg/dL (Negative) 11/30/21 02:50 Urine Blood Sm (Negative) 11/30/21 02:50 Urine Nitrite Neg (Negative) 11/30/21 02:50 Urine Bilirubin Neg (Negative) 11/30/21 02:50 Urine Urobilinogen < 2.0 mg/dL (<2.0) 11/30/21 02:50 Ur Leukocyte Esterase Neg (Negative) 11/30/21 02:50 Urine WBC (Auto) 2.0 /HPF (0.0-6.0) 11/30/21 02:50 Urine RBC (Auto) 2.0 /HPF (0.0-6.0) 11/30/21 02:50 U Epithel Cells (Auto) 1.0 /HPF (0-13.0) 11/30/21 02:50 Urine Bacteria (Auto) 1+ /HPF (Negative) 11/30/21 02:50 Urine Yeast (Budding) 1+ /HPF 11/30/21 02:50 Vancomycin Trough 24.7 ug/mL (5.0-20.0) H 12/06/21 21:31 Blood Type O POSITIVE 12/03/21 14:07 Antibody Screen Negative 12/03/21 14:07 Crossmatch See Detail 12/03/21 14:07 Microbiology: Microbiology 12/05/21 13:43 Peripheral/Venous Blood Culture - Preliminary NO GROWTH AFTER 24 HOURS 12/05/21 13:49 Peripheral/Venous Blood Culture - Preliminary NO GROWTH AFTER 24 HOURS Victor/IV: Voiding Method External Female Catheter Active Medications - Current Medications Current Medications: Generic Name Dose Route Start Last Admin Trade Name Freq PRN Reason Stop Dose Admin Acetaminophen 650 mg 11/30/21 19:24 12/04/21 22:58 Acetaminophen 325 Mg Tab PO 650 mg Q4H PRN Administration Pain MILD(1-3)/Fever >100.5/GONZALEZ Apixaban 2.5 mg 12/05/21 10:00 12/06/21 21:16 Apixaban 2.5 Mg Tab PO 2.5 mg Q12HR SRAVAN Administration Protocol Aspirin 81 mg 12/04/21 14:00 12/06/21 10:07 Aspirin Ec 81 Mg Tab PO 81 mg QDAY SRAVAN Administration Cilostazol 50 mg 12/01/21 22:00 12/06/21 21:15 Cilostazol 100 Mg Tab PO 50 mg BID SRAVAN Administration Docusate Sodium 100 mg 12/01/21 22:00 12/06/21 21:18 Docusate Sodium 100 Mg Cap PO Not Given BID SRAVAN Gabapentin 100 mg 12/01/21 22:00 12/06/21 21:15 Gabapentin 100 Mg Cap PO 100 mg BID SRAVAN Administration Hydromorphone HCl 0.5 mg 12/01/21 10:42 12/07/21 05:53 Hydromorphone 1 Mg/1 Ml Inj IV 0.5 mg Q4H PRN Administration Pain , Severe (7-10) Cefepime HCl 2 gm in 100 mls @ 200 mls/hr 12/01/21 10:00 12/06/21 21:15 Cefepime/Ns 2 Gm/100 Ml IV 200 mls/hr Q12H SRAVAN Administration Protocol Vancomycin HCl 1 gm in 250 mls @ 167.007 mls/hr 12/04/21 11:00 12/06/21 22:18 Vancomycin/Ns 1 Gm/250 Ml IV 167.007 mls/hr Q12H SRAVAN Administration Ondansetron HCl 4 mg 11/30/21 19:24 12/04/21 22:52 Ondansetron 4 Mg/2 Ml Inj IV 4 mg Q8H PRN Administration Nausea And Vomiting Oxycodone/Acetaminophen 2 tab 12/02/21 11:44 12/06/21 18:16 Oxycodone /Acetaminophen 5-325mg Tab PO 2 tab Q8H PRN Administration Pain, Moderate (4-6) Pantoprazole Sodium 40 mg 12/01/21 20:00 12/06/21 10:07 Pantoprazole 40 Mg Tab PO 40 mg QDAY SRAVAN Administration Sodium Chloride 10 ml 11/30/21 22:00 12/06/21 21:19 Sodium Chloride 0.9% 10 Ml Flush Syringe IV 10 ml BID SRAVAN Administration Sodium Chloride 10 ml 11/30/21 19:24 Sodium Chloride 0.9% 10 Ml Flush Syringe IV PRN PRN LINE FLUSH Trazodone HCl 100 mg 12/01/21 22:00 12/06/21 21:15 Trazodone 100 Mg Tab PO 100 mg QHS SRAVAN Administration Venlafaxine HCl 75 mg 12/01/21 20:00 12/06/21 10:07 Venlafaxine 75 Mg Tab PO 75 mg DAILY SRAVAN Administration Nutrition/Malnutrition Assess - Dietary Evaluation Nutrition/Malnutrition Findings: Nutrition Notes Start: 12/05/21 15:54 Freq: Status: Active Protocol: Document 12/06/21 14:55 MERARI (Rec: 12/06/21 15:04 MERARI [email or web address]) Nutrition Notes Initial or Follow up Brief Note Current Diagnosis Acute Kidney Injury,Sepsis, Malnutrition Other Pertinent Diagnosis Metabolic Encephalopathy, PAD s/p Revascularization, PVD, L- LE Ischemia, .. Current Diet Regular Diet + D Suppl (since B 12/05). Height 5 ft 3 in Weight 47.3 kg [place] Body Weight (kg) 52.27 BMI 18.4 Weight change and time frame No body weight change reported in 1 day. Weight Status Underweight Subjective/Other Information RD consult for malnutrition assessment. No reports available on Pt's PO intake of meals at the time , will assess at F/U. Pt is on Room Air, O2 saturation @ 98%, according to Physical Assessmenty History notes. Percent of energy/protein needs met: Prescribed Regular Diet provides for energy/protein needs (2,289 Kcal/89 g) during LOS; additionally, Dietary Supplements will compensate for possible poor or insufficient PO intake of meals, and sopport wound healing processes with 320 Kcal and 32 g of protein. Minimum of two criteria Yes Energy Intake (non-severe) <75% Estimated Energy Requirement >7 days Interpretation of Weight Loss (severe) >5% in 1 month Fluid Accumulation Mild (non-severe) Reduced Mysql Developer Strength N/A (non-severe) Protein-Calorie Malnutrition Severe #2 Nutrition Diagnosis Increased nutrient needs ( specify in comment below) Comments: Protein to support wound healing processes. Diagnosis Progress(for reassessment Continues documentation) #1 Nutrition Diagnosis Malnutrition,Underweight Diagnosis Progress(for reassessment Continues documentation) Is patient on ventilator? No Is Patient Ambulatory and/or Out of Bed Yes REE-([facility]-ambulatory/OOB) [ 1328.769 [id number]] Calculation Used for Recommendations [facility] Additional Notes Protein: 1.25-1.5 g/Kg ABW; 59 -71 g/day. Fluids: 1 ml/Kcal, or as per MD. Nutrition Intervention Change Diet Order: Continue Regular Diet. Add Supplement/Snack (indicate name/kcal Start 8 fl oz Ensure High /protein ) Protein; BID. Provides kCal: 320 Provides Protein (gm) 32 Goal #1 Support, through dietary supplementation, wound healing processes during LOS. Goal #2 Compensate, through dietary supplementation, for possible poor or insufficient PO intake of meals during LOS. Follow-Up By: 12/12/21 Additional Comments Continue monitoring food tolerance, %PO intake of meals and ONS, and BM.
--- NOTE | 2021-12-06 14:09 | Progress Note ---
Assessment and Plan Patient is doing well Wound vac should be placed on distal wounds starting Saturday increase activity with physical therapy increase nutritional intake. Subjective Date of service: 12/06/21 Interval history: Patient is without complaints this morning. States she is regaining sensation in her left leg. Objective - Constitutional Vitals: Vital Signs - 12hr 12/06/21 12/06/21 12/06/21 02:30 03:02 03:30 Temperature Pulse Rate 87 87 85 Pulse Rate [ From Monitor] Respiratory 10 L 7 L 10 L Rate Blood Pressure 99/48 112/52 O2 Sat by Pulse 94 94 97 Oximetry 12/06/21 12/06/21 12/06/21 04:00 04:30 05:00 Temperature 98.1 F Pulse Rate 85 84 86 Pulse Rate [ 85 From Monitor] Respiratory 14 8 L 9 L Rate Blood Pressure 118/56 94/51 104/48 O2 Sat by Pulse 92 95 95 Oximetry 12/06/21 12/06/21 12/06/21 05:30 06:00 06:30 Temperature Pulse Rate 85 85 85 Pulse Rate [ From Monitor] Respiratory 11 L 12 11 L Rate Blood Pressure 109/55 111/51 122/57 O2 Sat by Pulse 92 97 97 Oximetry 12/06/21 12/06/21 12/06/21 07:00 07:30 08:00 Temperature 97.1 F L Pulse Rate 87 97 H 100 H Pulse Rate [ 100 H From Monitor] Respiratory 9 L 13 21 Rate Blood Pressure 114/55 132/57 O2 Sat by Pulse 96 97 95 Oximetry 12/06/21 12/06/21 12/06/21 08:01 08:30 09:00 Temperature Pulse Rate 90 93 H 100 H Pulse Rate [ From Monitor] Respiratory 17 20 19 Rate Blood Pressure 124/58 127/61 136/60 O2 Sat by Pulse 97 97 97 Oximetry 12/06/21 12/06/21 12/06/21 09:31 10:00 10:30 Temperature Pulse Rate 101 H 97 H 94 H Pulse Rate [ From Monitor] Respiratory 14 19 20 Rate Blood Pressure 123/68 117/70 126/60 O2 Sat by Pulse 96 95 94 Oximetry 12/06/21 12/06/21 12/06/21 11:00 11:30 11:46 Temperature 98.9 F Pulse Rate 89 90 Pulse Rate [ From Monitor] Respiratory 11 L 11 L Rate Blood Pressure 122/60 116/61 O2 Sat by Pulse 95 95 Oximetry 12/06/21 12/06/21 12/06/21 12:00 12:01 12:30 Temperature Pulse Rate 96 H 95 H 95 H Pulse Rate [ 96 H From Monitor] Respiratory 13 13 20 Rate Blood Pressure 116/61 133/58 O2 Sat by Pulse 98 98 97 Oximetry 12/06/21 13:01 Temperature Pulse Rate 91 H Pulse Rate [ From Monitor] Respiratory 16 Rate Blood Pressure 136/57 O2 Sat by Pulse 95 Oximetry General appearance: Present: no acute distress - Respiratory Respiratory effort: normal - Cardiovascular Rhythm: regular Extremities: normal temperature (bilateral feet are warm and well perfused), a bnormal (left groin wound vac is intact) Extremity abnormal: edema (left leg edema), pulses diminished (nonpalpable pedal pulses with doppler signals in bilateral feet), other (left leg dressings were changed, distal thigh and calf wounds are clean and without purulence, no active bleeding, muscle is healthy and viable) - Gastrointestinal General gastrointestinal: Present: soft, non-tender, non-distended - Labs CBC & Chem 7: 12/06/21 07:15 12/06/21 07:15 Labs: Abnormal lab results 12/06/21 12/06/21 12/06/21 Range/Units 00:28 07:15 07:15 RBC 2.84 L (3.65-5.03) M/mm3 Hgb 7.6 L (10.1-14.3) gm/dl Hct 23.2 L (30.3-42.9) % MCH 27 L (28-32) pg RDW 19.5 H (13.2-15.2) % [place] % (Auto) 10.0 H (0.0-7.3) % Eos % (Auto) 4.7 H (0.0-4.3) % [place] # (Auto) 0.9 H (0.0-0.8) K/mm3 Seg Neutrophils % 70.5 H (40.0-70.0) % Potassium 3.0 L (3.6-5.0) mmol/L Chloride 109.4 H (98-107) mmol/L Calcium 7.3 L 7.7 L (8.4-10.2) mg/dL ALT 6 L (7-56) units/L Total Protein 4.3 L (6.3-8.2) g/dL Albumin 1.6 L (3.9-5) g/dL Medications & Allergies - Medications Allergies/Adverse Reactions: Allergies No Known Allergies Allergy (Verified 10/20/21 09:17) Home Medications: Home Medications Medication Instructions Recorded Confirmed Last Taken Type Apixaban [Eliquis] 2.5 mg PO Q12HR #60 tab 09/01/21 12/04/21 Unknown Rx AtorvaSTATin [Lipitor] 40 mg PO DAILY 09/01/21 12/04/21 08/31/21 History 1 tab Clopidogrel [Plavix] 75 mg PO QDAY #90 tablet 09/01/21 12/04/21 Unknown Rx Gabapentin 100 mg PO BID 09/01/21 12/04/21 08/31/21 History 2 tabs Pantoprazole [Protonix] 40 mg PO QDAY #90 tablet 09/01/21 12/04/21 Unknown Rx amLODIPine 5 mg PO DAILY 09/01/21 12/04/21 08/31/21 History 1 tab carvediloL [Coreg] 25 mg PO BID 09/01/21 12/04/21 08/31/21 History 2 tabs cilostazoL [Pletal] 50 mg PO BID 09/01/21 12/04/21 08/31/21 History 2 tabs traZODone [Desyrel] 100 mg PO QHS 09/01/21 12/04/21 08/31/21 History 1 tab Venlafaxine [Effexor] 75 mg PO DAILY 11/02/21 12/04/21 Unknown History Active Medications: Generic Name Dose Route Start Last Admin Trade Name Freq PRN Reason Stop Dose Admin Acetaminophen 650 mg 11/30/21 19:24 12/04/21 22:58 Acetaminophen 325 Mg Tab PO 650 mg Q4H PRN Administration Pain MILD(1-3)/Fever >100.5/GONZALEZ Apixaban 2.5 mg 12/05/21 10:00 12/06/21 10:07 Apixaban 2.5 Mg Tab PO 2.5 mg Q12HR SRAVAN Administration Protocol Aspirin 81 mg 12/04/21 14:00 12/06/21 10:07 Aspirin Ec 81 Mg Tab PO 81 mg QDAY SRAVAN Administration Cilostazol 50 mg 12/01/21 22:00 12/06/21 10:08 Cilostazol 100 Mg Tab PO 50 mg BID SRAVAN Administration Docusate Sodium 100 mg 12/01/21 22:00 12/06/21 10:07 Docusate Sodium 100 Mg Cap PO 100 mg BID SRAVAN Administration Gabapentin 100 mg 12/01/21 22:00 12/06/21 10:07 Gabapentin 100 Mg Cap PO 100 mg BID SRAVAN Administration Hydromorphone HCl 0.5 mg 12/01/21 10:42 12/06/21 08:39 Hydromorphone 1 Mg/1 Ml Inj IV 0.5 mg Q4H PRN Administration Pain , Severe (7-10) Cefepime HCl 2 gm in 100 mls @ 200 mls/hr 12/01/21 10:00 12/06/21 10:14 Cefepime/Ns 2 Gm/100 Ml IV 200 mls/hr Q12H SRAVAN Administration Protocol Vancomycin HCl 1 gm in 250 mls @ 167.007 mls/hr 12/04/21 11:00 12/06/21 10:17 Vancomycin/Ns 1 Gm/250 Ml IV 167.007 mls/hr Q12H SRAVAN Administration Ondansetron HCl 4 mg 11/30/21 19:24 12/04/21 22:52 Ondansetron 4 Mg/2 Ml Inj IV 4 mg Q8H PRN Administration Nausea And Vomiting Oxycodone/Acetaminophen 2 tab 12/02/21 11:44 12/06/21 10:14 Oxycodone /Acetaminophen 5-325mg Tab PO 2 tab Q8H PRN Administration Pain, Moderate (4-6) Pantoprazole Sodium 40 mg 12/01/21 20:00 12/06/21 10:07 Pantoprazole 40 Mg Tab PO 40 mg QDAY SRAVAN Administration Sodium Chloride 10 ml 11/30/21 22:00 12/06/21 10:17 Sodium Chloride 0.9% 10 Ml Flush Syringe IV 10 ml BID SRAVAN Administration Sodium Chloride 10 ml 11/30/21 19:24 Sodium Chloride 0.9% 10 Ml Flush Syringe IV PRN PRN LINE FLUSH Trazodone HCl 100 mg 12/01/21 22:00 12/05/21 22:28 Trazodone 100 Mg Tab PO 100 mg QHS SRAVAN Administration Venlafaxine HCl 75 mg 12/01/21 20:00 12/06/21 10:07 Venlafaxine 75 Mg Tab PO 75 mg DAILY SRAVAN Administration HEART Score - HEART Score Troponin: Troponin T 0.119 ng/mL (0.00-0.029) H* 11/30/21 15:56
--- NOTE | 2021-12-06 18:18 | Progress Note ---
Assessment and Plan Cultures: 11/30/2021 blood culture: In process A/P: 56/F with peripheral vascular disease, tobacco abuse, peripheral neuropathy, prior CVA, recent admission for critical limb ischemia of LLE requiring L EXPORT ADMINISTRATOR to popliteal bypass complicated by compartment syndrome requiring 4 compartment fasciotomy, woundVAC in groin region was discharged to rehab and sent home about 2 days prior to admission was admitted this time with AMS and weakness: #Septic shock: Chest x-ray without pneumonia, UA without any pyuria. Source could be wound infection causing a transient bacteremia. Follow-up blood cultu res. #Peripheral vascular disease, recent revascularization of LLE, compartment syndrome requiring fasciotomy #Acute anemia #SUSANA: Creatinine improving. Recs: Continue empiric cefepime, vancomycin Leukocytosis worsening may be reactive to having surgery done yesterday. Wound care Shannon Blake MD [facility] ([facility]) O: [phone] F: [phone] Subjective Date of service: 12/06/21 Interval history: Afebrile, white count 9.2. Surgical cultures with gram-negative rods still pending. Objective - Exam Narrative Exam: Physical Exam: Constitutional: Alert, cooperative. No acute distress Head, Ears, Nose: Normocephalic, atraumatic. Eyes: Conjunctivae/corneas clear. No icterus. No ptosis. Neck: Supple, no meningeal signs Cardiovascular: S1, S2 + Respiratory: Good air entry, clear to auscultation bilaterally GI: Soft, non-tender; bowel sounds normal. No peritoneal signs Musculoskeletal: LLE with dressing, left groin with wound VAC Skin: No rash or abscess Hem/Lymphatic: No palpable cervical or supraclavicular nodes. No lymphangitis Psych: Mood ok. Affect normal Neurological: Awake, alert, oriented. No gross abnormality - Constitutional Vitals: Vital Signs Temp Pulse Resp BP Pulse Ox 97.6 F 85 15 122/59 98 12/06/21 16:00 12/06/21 17:00 12/06/21 17:00 12/06/21 17:00 12/06/21 17:00 Temperature -Last 24 Hours Temperature 97.6 F Temperature 98.9 F Temperature 97.1 F Temperature 98.1 F Temperature 98.1 F Temperature 98.0 F - Labs CBC & Chem 7: 12/06/21 07:15 12/06/21 07:15 Labs: Abnormal lab results 12/06/21 12/06/21 12/06/21 Range/Units 00:28 07:15 07:15 RBC 2.84 L (3.65-5.03) M/mm3 Hgb 7.6 L (10.1-14.3) gm/dl Hct 23.2 L (30.3-42.9) % MCH 27 L (28-32) pg RDW 19.5 H (13.2-15.2) % [place] % (Auto) 10.0 H (0.0-7.3) % Eos % (Auto) 4.7 H (0.0-4.3) % [place] # (Auto) 0.9 H (0.0-0.8) K/mm3 Seg Neutrophils % 70.5 H (40.0-70.0) % Potassium 3.0 L (3.6-5.0) mmol/L Chloride 109.4 H (98-107) mmol/L Calcium 7.3 L 7.7 L (8.4-10.2) mg/dL ALT 6 L (7-56) units/L Total Protein 4.3 L (6.3-8.2) g/dL Albumin 1.6 L (3.9-5) g/dL
[2021-12-06] MEDS: traZODone 100 MG TAB PO SCH (21:15)
[2021-12-07] MEDS: HYDROmorphone 1 MG/1 ML INJ IV PRN ×4 (01:19→19:47)
[2021-12-07 05:07] LABS: Hematocrit 24.5 % (30.3-42.9); Hemoglobin 8.2 gm/dl (10.1-14.3); Mean Corpuscular HGB Conc 33 % (30-34); Mean Corpuscular Volume 82 fl (79-97); Platelet Count 338 K/mm3 (140-440); Red Blood Count 2.98 M/mm3 (3.65-5.03); Red Cell Distribution Width 19.1 % (13.2-15.2)
[2021-12-07 05:23] LABS: Blood Urea Nitrogen 8 mg/dL (7-17); Calcium 8.2 mg/dL (8.4-10.2); Hemolysis Index 10
[2021-12-07 05:24] LABS: BUN/Creatinine Ratio 13
[2021-12-07] MEDS: DOCUSATE SODIUM 100 MG CAP PO SCH ×2 (09:30→21:42)
[2021-12-07] MEDS: CILOSTAZOL 100 MG TAB PO SCH ×2 (09:30→21:42)
[2021-12-07] MEDS: ASPIRIN EC 81 MG TAB PO SCH (09:30)
[2021-12-07] MEDS: PANTOPRAZOLE 40 MG TAB PO SCH (09:31)
[2021-12-07] MEDS: APIXABAN 2.5 MG TAB PO SCH ×2 (09:31→21:42)
[2021-12-07] MEDS: GABAPENTIN 100 MG CAP PO SCH ×2 (09:31→21:42)
[2021-12-07] MEDS: VENLAFAXINE 75 MG TAB PO SCH (09:31)
[2021-12-07] MEDS: CEFEPIME/NS 2 GM/100 ML 2 GM/100 ML BAG IV SCH ×2 (09:32→21:44)
[2021-12-07] MEDS ORDERED: NICOTINE 14 MG/24 HR PATCH TD SCH (10:00)
--- NOTE | 2021-12-07 10:04 | Progress Note ---
Assessment and Plan Cultures: 11/30/2021 blood culture: In process Wound culture: GNR A/P: 56/F with peripheral vascular disease, tobacco abuse, peripheral neuropathy, prior CVA, recent admission for critical limb ischemia of LLE requiring L [employer] to popliteal bypass complicated by compartment syndrome requiring 4 compartment fasciotomy, woundVAC in groin region was discharged to rehab and sent home about 2 days prior to admission was admitted this time with AMS and weakness: #Septic shock: Chest x-ray without pneumonia, UA without any pyuria. Source could be wound infection causing a transient bacteremia. Follow-up blood cultures. #Peripheral vascular disease, recent revascularization of LLE, compartment syndrome requiring fasciotomy #Acute anemia #SUSANA: Creatinine improving. Recs: Continue empiric cefepime, vancomycin Okay to discharge with Levaquin 750 mg every 24 hours to complete 7 further days Discussed with Dr. Erick Blake MD [facility] ([facility]) O: [phone] F: [phone] Subjective Date of service: 12/07/21 Interval history: Afebrile, normal white count. No acute changes. Objective - Exam Narrative Exam: Physical Exam: Constitutional: Alert, cooperative. No acute distress Head, Ears, Nose: Normocephalic, atraumatic. Eyes: Conjunctivae/corneas clear. No icterus. No ptosis. Neck: Supple, no meningeal signs Cardiovascular: S1, S2 + Respiratory: Good air entry, clear to auscultation bilaterally GI: Soft, non-tender; bowel sounds normal. No peritoneal signs Musculoskeletal: LLE with dressing, left groin with wound VAC Skin: No rash or abscess Hem/Lymphatic: No palpable cervical or supraclavicular nodes. No lymphangitis Psych: Mood ok. Affect normal Neurological: Awake, alert, oriented. No gross abnormality - Constitutional Vitals: Vital Signs Temp Pulse Resp BP Pulse Ox 99.2 F 89 14 157/73 97 12/07/21 07:13 12/07/21 09:00 12/07/21 09:00 12/07/21 09:00 12/07/21 09:00 Temperature -Last 24 Hours Temperature 99.2 F Temperature 98.7 F Temperature 97.9 F Temperature 98.3 F Temperature 97.6 F Temperature 98.9 F - Labs CBC & Chem 7: 12/07/21 04:46 12/07/21 04:46 Labs: Abnormal lab results 12/06/21 12/07/21 12/07/21 Range/Units 21:31 04:46 04:46 RBC 2.98 L (3.65-5.03) M/mm3 Hgb 8.2 L (10.1-14.3) gm/dl Hct 24.5 L (30.3-42.9) % MCH 27 L (28-32) pg RDW 19.1 H (13.2-15.2) % Chloride 111.0 H (98-107) mmol/L Calcium 8.2 L (8.4-10.2) mg/dL Vancomycin Trough 24.7 H (5.0-20.0) ug/mL
[2021-12-07] MEDS: VANCOMYCIN 750 MG in SODIUM CHLORIDE 0.9% 250ML 250 ML IV SCH ×2 (10:53→22:08)
[2021-12-07] MEDS: oxyCODONE /ACETAMINOPHEN 5-325MG TAB PO PRN ×2 (14:46→22:09)
--- NOTE | 2021-12-07 15:13 | Progress Note ---
Assessment and Plan Spoke with wound care nurse. Patient has a home wound VAC. Patient will need additional areas treated with a wound VAC along the medial aspect of her left leg and distal aspect. The wound care nurse will be bridging these 3 gaps. Once patient's wound VAC is in place, she can be discharged home from a vascular standpoint with resumption of her home health and home wound care orders. Subjective Date of service: 12/07/21 Principal diagnosis: PVD with infected graft Interval history: Patient with a history of severe peripheral vascular disease who previously had undergone a left fem distal bypass which subsequently occluded. The patient was previously reopened endovascularly and discharged. She presented with infection throughout the course of her implant and graft and underwent surgical removal 3 days ago. Patient with wound VAC in left groin. No complaints on today's examination. Patient states that her feeling continues to return to her foot. Objective - Constitutional Vitals: Vital Signs - 12hr 12/07/21 12/07/21 12/07/21 04:00 04:01 05:01 Temperature 98.7 F Pulse Rate 84 85 Pulse Rate [ 84 From Monitor] Respiratory 8 L 8 L 16 Rate Blood Pressure 130/67 138/69 O2 Sat by Pulse 98 98 97 Oximetry 12/07/21 12/07/21 12/07/21 06:00 06:01 07:00 Temperature Pulse Rate 79 86 89 Pulse Rate [ From Monitor] Respiratory 15 15 Rate Blood Pressure 151/70 144/72 O2 Sat by Pulse 97 98 Oximetry 12/07/21 12/07/21 12/07/21 07:13 08:00 08:37 Temperature 99.2 F Pulse Rate 90 Pulse Rate [ 91 H From Monitor] Respiratory 12 Rate Blood Pressure 149/73 O2 Sat by Pulse 97 96 Oximetry 12/07/21 12/07/21 12/07/21 09:00 10:00 11:00 Temperature Pulse Rate 89 94 H 98 H Pulse Rate [ From Monitor] Respiratory 14 21 16 Rate Blood Pressure 157/73 163/77 140/81 O2 Sat by Pulse 97 98 98 Oximetry 12/07/21 12/07/21 12/07/21 11:47 12:00 12:01 Temperature 97.8 F Pulse Rate 86 105 H Pulse Rate [ 86 From Monitor] Respiratory 16 19 Rate Blood Pressure 138/78 O2 Sat by Pulse 97 98 Oximetry 12/07/21 12/07/21 12/07/21 13:01 14:00 15:01 Temperature Pulse Rate 100 H 95 H 97 H Pulse Rate [ From Monitor] Respiratory 14 29 H 15 Rate Blood Pressure 140/53 140/66 124/67 O2 Sat by Pulse 97 97 100 Oximetry General appearance: Present: no acute distress - EENT ENT: hearing intact - Neck Neck: supple, normal ROM - Respiratory Respiratory effort: normal - Genitourinary Female genitourinary: deferred - Psychiatric Psychiatric: cooperative - Labs CBC & Chem 7: 12/07/21 04:46 12/07/21 04:46 Labs: Abnormal lab results 12/06/21 12/07/21 12/07/21 Range/Units 21:31 04:46 04:46 RBC 2.98 L (3.65-5.03) M/mm3 Hgb 8.2 L (10.1-14.3) gm/dl Hct 24.5 L (30.3-42.9) % MCH 27 L (28-32) pg RDW 19.1 H (13.2-15.2) % Chloride 111.0 H (98-107) mmol/L Calcium 8.2 L (8.4-10.2) mg/dL Vancomycin Trough 24.7 H (5.0-20.0) ug/mL Medications & Allergies - Medications Allergies/Adverse Reactions: Allergies No Known Allergies Allergy (Verified 10/20/21 09:17) Home Medications: Home Medications Medication Instructions Recorded Confirmed Last Taken Type Apixaban [Eliquis] 2.5 mg PO Q12HR #60 tab 09/01/21 12/04/21 Unknown Rx AtorvaSTATin [Lipitor] 40 mg PO DAILY 09/01/21 12/04/21 08/31/21 History 1 tab Clopidogrel [Plavix] 75 mg PO QDAY #90 tablet 09/01/21 12/04/21 Unknown Rx Gabapentin 100 mg PO BID 09/01/21 12/04/21 08/31/21 History 2 tabs Pantoprazole [Protonix] 40 mg PO QDAY #90 tablet 09/01/21 12/04/21 Unknown Rx amLODIPine 5 mg PO DAILY 09/01/21 12/04/21 08/31/21 History 1 tab carvediloL [Coreg] 25 mg PO BID 09/01/21 12/04/21 08/31/21 History 2 tabs cilostazoL [Pletal] 50 mg PO BID 09/01/21 12/04/21 08/31/21 History 2 tabs traZODone [Desyrel] 100 mg PO QHS 09/01/21 12/04/21 08/31/21 History 1 tab Venlafaxine [Effexor] 75 mg PO DAILY 11/02/21 12/04/21 Unknown History Active Medications: Generic Name Dose Route Start Last Admin Trade Name Freq PRN Reason Stop Dose Admin Acetaminophen 650 mg 11/30/21 19:24 12/04/21 22:58 Acetaminophen 325 Mg Tab PO 650 mg Q4H PRN Administration Pain MILD(1-3)/Fever >100.5/GONZALEZ Apixaban 2.5 mg 12/05/21 10:00 12/07/21 09:31 Apixaban 2.5 Mg Tab PO 2.5 mg Q12HR SRAVAN Administration Protocol Aspirin 81 mg 12/04/21 14:00 12/07/21 09:30 Aspirin Ec 81 Mg Tab PO 81 mg QDAY SRAVAN Administration Cilostazol 50 mg 12/01/21 22:00 12/07/21 09:30 Cilostazol 100 Mg Tab PO 50 mg BID SRAVAN Administration Docusate Sodium 100 mg 12/01/21 22:00 12/07/21 09:30 Docusate Sodium 100 Mg Cap PO 100 mg BID SRAVAN Administration Gabapentin 100 mg 12/01/21 22:00 12/07/21 09:31 Gabapentin 100 Mg Cap PO 100 mg BID SRAVAN Administration Hydromorphone HCl 0.5 mg 12/01/21 10:42 12/07/21 05:53 Hydromorphone 1 Mg/1 Ml Inj IV 0.5 mg Q4H PRN Administration Pain , Severe (7-10) Cefepime HCl 2 gm in 100 mls @ 200 mls/hr 12/01/21 10:00 12/07/21 09:32 Cefepime/Ns 2 Gm/100 Ml IV 200 mls/hr Q12H SRAVAN Administration Protocol Vancomycin HCl 750 mg/ Sodium 265 mls @ 166.667 mls/hr 12/07/21 11:00 12/07/21 10:53 Chloride IV 166.667 mls/hr Q12H SRAVAN Administration Ondansetron HCl 4 mg 11/30/21 19:24 12/04/21 22:52 Ondansetron 4 Mg/2 Ml Inj IV 4 mg Q8H PRN Administration Nausea And Vomiting Oxycodone/Acetaminophen 2 tab 12/02/21 11:44 12/07/21 14:46 Oxycodone /Acetaminophen 5-325mg Tab PO 2 tab Q8H PRN Administration Pain, Moderate (4-6) Pantoprazole Sodium 40 mg 12/01/21 20:00 12/07/21 09:31 Pantoprazole 40 Mg Tab PO 40 mg QDAY SRAVAN Administration Sodium Chloride 10 ml 11/30/21 22:00 12/07/21 09:32 Sodium Chloride 0.9% 10 Ml Flush Syringe IV 10 ml BID SRAVAN Administration Sodium Chloride 10 ml 11/30/21 19:24 Sodium Chloride 0.9% 10 Ml Flush Syringe IV PRN PRN LINE FLUSH Trazodone HCl 100 mg 12/01/21 22:00 12/06/21 21:15 Trazodone 100 Mg Tab PO 100 mg QHS SRAVAN Administration Venlafaxine HCl 75 mg 12/01/21 20:00 12/07/21 09:31 Venlafaxine 75 Mg Tab PO 75 mg DAILY SRAVAN Administration HEART Score - HEART Score Troponin: Troponin T 0.119 ng/mL (0.00-0.029) H* 11/30/21 15:56
--- NOTE | 2021-12-07 16:12 | Progress Note ---
<VINCENT KERNS - Last Filed: 12/07/21 16:23> Assessment and Plan Assessment and plan: This is a 56-year-old female with severe PVD, CAD, HTN, HLD, anemia, EtOH and tobacco abuse who is s/p left femoral to below the knee popliteal artery bypass complicated by compartment syndrome s/p fasciotomy and right leg revasculariz ation who was discharged to SNF after almost 3 week stay via EMS for altered mental status and was hypoentive in ED despite fluid resuscitation was eventually started on Levophed with a placement of central line. Patient was also anemic with a hemoglobin of 6.2 and 1 unit PRBC was transfused. She also had leukocytosis, acute kidney injury, elevated troponin and purulent drainage from wounds. Patient was admitted to the hospital service with consult to vascular surgery, ID and CCM with Sepsis. Hospital Course to Date: 12/01: Additional LR boluses, KCL 40 PO, prn diludid given for pain. Wean levophed as tolerated. 12/02: Adjustment to pain regimen, CTA pelvis and lower extremities with contrast obtained. Phosphorus and magnesium repleted 12/03: No vascular interventions till Saturday/Saturday. Pain better controlled. No acute events overnight. Transfer to [facility] 12/04: OR today for surgery by IR. Am labs ordered. 12/05/21-patient is seen at bedside. Patient alert and oriented. V/S stable. She is s/p excision of Infected Left Femoral to Below-Knee Popliteal Artery Bypass Graft-done 12/04/21. Wound VAC Placement left groin. patient reports pain left. Unable to feel left pedal pulse with doppler. patient's nurse at bedside at the time of assessment. I spoke to Dr Edge-vascular surgeon-he agreed to come and re-assess pt. 12/06: Remains afebrile and hemodynamicaly stable. Vascular surgery recommendations noted. Plan to discharge back to subacute rehab when okayed by ID, awaiting antibiotics recommendations. 12/07: RUTH overnight. Vascular Surg and ID recommendations noted. PT recommends subacute rehab, however patient refused subacute rehab and requested to go home with [facility]. Thorough discussion with patient at the bedside, discussing risks and potential worsening of condition without proper care and supervision, especially since she lives alone at home. Patient verbalized understanding of the info provided but still refused subacute rehab and was adamant to be discharge home. box lining machine operator to switch patient to a home wound VAC. Plan for possible discharge home tomorrow with [facility] and home wound care. Case management to arrange. Assessment and Plan: Septic shock (POA), leukocytosis(improved) -Presented with leukocytosis, acute kidney injury, purulent drainage from leg wounds -Infectious disease consulted, appreciate recommendations -Antibiotic therapy with cefepime and vancomycin -WOCN consulted for wound care -f/u blood culture -Monitor WBC and temperature curve -Per ID: Okay to discharge with Levaquin 750 mg every 24 hours to complete 7 further days Severe PVD s/p left femoral to below-knee popliteal artery bypass with fasciotomy, right lower extremity vascularization -Presented with Presented with leukocytosis, and purulent drainage from leg wounds -CTA BLE shows air within the left femoral to popliteal artery bypass graft as well as in fluid collections along the graft. 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 -LLE wound vac in placed, no s/s of any complications noted -Continue ASA,Eliquis, Pletal, and gabapentin -Vascular checks per protocol -Continue wound care per Vascular Surgery -Wound Care consulted Acute Anemia -Presented with low H&H, s/p 5units of PRBCs -H&H stable this am -Continue to monitor for signs of bleeding -Transfuse for hgb less than 7 Neuro: h/o CVA, Depression, EtOH abuse -Reorientation as needed -Maintain sleep-wake cycle -As needed analgesia -Resumed home meds Cardiac: Hypertension -Presented with hypotension most likelu due to sepsis required vasopressors -BP stable now -Continue Blood pressure monitoring per protocol -Maintain SBP less than 120 Nicotine Dependence -Per patient last cigarettes was a week ago -Smoking cessation education provided, patient voiced understanding and agreed with the info provided -Admit that quitting is hard and she still having urges, Nicotine patch ordered GI: Moderate Protein calorie malnutrition -Regular diet with nutritional supplementation -Nutrition consulted -BR: colace : Acute kidney injury secondary to vasomotor nephropathy, Hypokalemia(resolved) -Renal function back to baseline -Monitor intake and output -Renally dose medications -Avoid nephrotoxic medications -Trend BMP GI/DVT Prophylaxis -PPI-Protonix -On Eliquis Advance Care Planning -Disease education data, care plan, diagnoses, and prognosis were discussed with patient at the bedside. Patient is full code. Patient acknowledged understanding and agreement with current care plan. -Plan to discharge back to subacute rehab when okayed by ID, awaiting anti biotics recommendations The high probability of a clinically significant, sudden or life threatening deterioration of the [multiple] system(s) required my full and direct attention, intervention and personal management. The aggregate critical care time was [60] minutes. This time is in addition to time spent performing reported procedures but includes the following: [x] Data Review and interpretation [x] Patient assessment and monitoring of vital signs [x] Documentation [x] Medication orders and management Disposition Plan: IMCU Total Time Spent with Patient (Minutes): 60 History Interval history: Patient seen and examined at the bedside. Remains stable on RA. LLE clean dressing with wound vac noted, no s/s of any complications appreciated. RUTH overnight Hospitalist Physical - Physical exam Narrative exam: General appearance: Present: no acute distress, cachectic - EENT Eyes: Present: PERRL, EOM intact ENT: hearing intact - Neck Neck: Present: normal ROM - Respiratory Respiratory effort: normal Respiratory: bilateral: diminished - Cardiovascular Rhythm: regular Heart Sounds: Present: S1 & S2 - Extremities Extremities: no ischemia, pulses intact, pulses symmetrical, abnormal (LLE clean and intact dressing with Wound vac. No complications noted) Extremity abnormal: edema - Peripheral Assessment Left Lower Extremity Edema Type: Pitting Edema Degree: 3+ Capillary Refill: < 3 seconds Skin Temperature: Warm Peripheral Pulses: abnormal (LLE pulses appreciated with a doppler) - Abdominal General gastrointestinal: soft, non-distended, normal bowel sounds - Integumentary Integumentary: Present: warm, dry - Psychiatric Psychiatric: appropriate mood/affect, cooperative - Neurologic Neurologic: moves all extremities (LLE with limited ROM) - Allied Health Allied health notes reviewed: nursing, case management - Constitutional Vitals: Temp Pulse Resp BP Pulse Ox 97.8 F 89 14 135/58 95 12/07/21 11:47 12/07/21 16:00 12/07/21 16:00 12/07/21 16:00 12/07/21 16:00 HEART Score - HEART Score Troponin: Troponin T 0.119 ng/mL (0.00-0.029) H* 11/30/21 15:56 Results - Labs CBC & Chem 7: 12/07/21 04:46 12/07/21 04:46 Labs: Laboratory Last Values WBC 9.0 K/mm3 (4.5-11.0) 12/07/21 04:46 RBC 2.98 M/mm3 (3.65-5.03) L 12/07/21 04:46 Hgb 8.2 gm/dl (10.1-14.3) L 12/07/21 04:46 Hct 24.5 % (30.3-42.9) L 12/07/21 04:46 MCV 82 fl (79-97) 12/07/21 04:46 MCH 27 pg (28-32) L 12/07/21 04:46 MCHC 33 % (30-34) 12/07/21 04:46 RDW 19.1 % (13.2-15.2) H 12/07/21 04:46 Plt Count 338 K/mm3 (140-440) 12/07/21 04:46 Lymph % (Auto) 13.6 % (13.4-35.0) 12/06/21 07:15 [place] % (Auto) 10.0 % (0.0-7.3) H 12/06/21 07:15 Eos % (Auto) 4.7 % (0.0-4.3) H 12/06/21 07:15 Baso % (Auto) 1.2 % (0.0-1.8) 12/06/21 07:15 Lymph # (Auto) 1.2 K/mm3 (1.2-5.4) 12/06/21 07:15 [place] # (Auto) 0.9 K/mm3 (0.0-0.8) H 12/06/21 07:15 Eos # (Auto) 0.4 K/mm3 (0.0-0.4) 12/06/21 07:15 Baso # (Auto) 0.1 K/mm3 (0.0-0.1) 12/06/21 07:15 Add Manual Diff Complete 12/01/21 04:33 Total Counted 100 12/01/21 04:33 Seg Neutrophils % 70.5 % (40.0-70.0) H 12/06/21 07:15 Seg Neuts % (Manual) 82.0 % (40.0-70.0) H 12/01/21 04:33 Band Neutrophils % 8.0 % 12/01/21 04:33 Lymphocytes % (Manual) 5.0 % (13.4-35.0) L 12/01/21 04:33 Reactive Lymphs % (Man) 0 % 12/01/21 04:33 Monocytes % (Manual) 4.0 % (0.0-7.3) 12/01/21 04:33 Eosinophils % (Manual) 0 % (0.0-4.3) 12/01/21 04:33 Basophils % (Manual) 0 % (0.0-1.8) 12/01/21 04:33 Metamyelocytes % 1.0 % 12/01/21 04:33 Myelocytes % 0 % 12/01/21 04:33 Promyelocytes % 0 % 12/01/21 04:33 Blast Cells % 0 % 12/01/21 04:33 Nucleated RBC % Not Reportable 12/01/21 04:33 Seg Neutrophils # 6.5 K/mm3 (1.8-7.7) 12/06/21 07:15 Seg Neutrophils # Man 17.0 K/mm3 (1.8-7.7) H 12/01/21 04:33 Band Neutrophils # 1.7 K/mm3 12/01/21 04:33 Lymphocytes # (Manual) 1.0 K/mm3 (1.2-5.4) L 12/01/21 04:33 Abs React Lymphs (Man) 0.0 K/mm3 12/01/21 04:33 Monocytes # (Manual) 0.8 K/mm3 (0.0-0.8) 12/01/21 04:33 Eosinophils # (Manual) 0.0 K/mm3 (0.0-0.4) 12/01/21 04:33 Basophils # (Manual) 0.0 K/mm3 (0.0-0.1) 12/01/21 04:33 Metamyelocytes # 0.2 K/mm3 12/01/21 04:33 Myelocytes # 0.0 K/mm3 12/01/21 04:33 Promyelocytes # 0.0 K/mm3 12/01/21 04:33 Blast Cells # 0.0 K/mm3 12/01/21 04:33 WBC Morphology Not Reportable 12/01/21 04:33 Hypersegmented Neuts Not Reportable 12/01/21 04:33 Hyposegmented Neuts Not Reportable 12/01/21 04:33 Hypogranular Neuts Not Reportable 12/01/21 04:33 Smudge Cells Not Reportable 12/01/21 04:33 Toxic Granulation Not Reportable 12/01/21 04:33 Toxic Vacuolation Not Reportable 12/01/21 04:33 Dohle Bodies Not Reportable 12/01/21 04:33 Pelger-Huet Anomaly Not Reportable 12/01/21 04:33 Mary Rods Not Reportable 12/01/21 04:33 Platelet Estimate Consistent w auto 12/01/21 04:33 Clumped Platelets Not Reportable 12/01/21 04:33 Plt Clumps, EDTA Not Reportable 12/01/21 04:33 Large Platelets Not Reportable 12/01/21 04:33 Giant Platelets Not Reportable 12/01/21 04:33 Platelet Satelliting Not Reportable 12/01/21 04:33 Plt Morphology Comment Not Reportable 12/01/21 04:33 RBC Morphology Not Reportable 12/01/21 04:33 Dimorphic RBCs Not Reportable 12/01/21 04:33 Polychromasia Not Reportable 12/01/21 04:33 Hypochromasia 2+ 12/01/21 04:33 Poikilocytosis Few 12/01/21 04:33 Anisocytosis 1+ 12/01/21 04:33 Microcytosis 1+ 12/01/21 04:33 Macrocytosis Not Reportable 12/01/21 04:33 Spherocytes Not Reportable 12/01/21 04:33 Pappenheimer Bodies Not Reportable 12/01/21 04:33 Sickle Cells Not Reportable 12/01/21 04:33 Target Cells Not Reportable 12/01/21 04:33 Tear Drop Cells Not Reportable 12/01/21 04:33 Ovalocytes Few 12/01/21 04:33 Helmet Cells Not Reportable 12/01/21 04:33 Ybarra-Albert Lea Bodies Not Reportable 12/01/21 04:33 Sidell Rings Not Reportable 12/01/21 04:33 [place] Cells Not Reportable 12/01/21 04:33 Bite Cells Not Reportable 12/01/21 04:33 Crenated Cell Not Reportable 12/01/21 04:33 Elliptocytes Rare 12/01/21 04:33 Acanthocytes (Spur) Not Reportable 12/01/21 04:33 Rouleaux Not Reportable 12/01/21 04:33 Hemoglobin C Crystals Not Reportable 12/01/21 04:33 Schistocytes Not Reportable 12/01/21 04:33 Malaria parasites Not Reportable 12/01/21 04:33 Kvng Bodies Not Reportable 12/01/21 04:33 Hem Pathologist Commnt No 12/01/21 04:33 PT 14.9 Sec. (12.2-14.9) 12/04/21 04:35 INR 1.05 (0.87-1.13) 12/04/21 04:35 APTT 43.1 Sec. (24.2-36.6) H 11/30/21 15:56 VBG pH 7.509 (7.320-7.420) H 11/30/21 15:57 Sodium 142 mmol/L (137-145) 12/07/21 04:46 Potassium 4.4 mmol/L (3.6-5.0) D 12/07/21 04:46 Chloride 111.0 mmol/L (98-107) H 12/07/21 04:46 Carbon Dioxide 24 mmol/L (22-30) 12/07/21 04:46 Anion Gap 11 mmol/L 12/07/21 04:46 BUN 8 mg/dL (7-17) 12/07/21 04:46 Creatinine 0.6 mg/dL (0.6-1.2) 12/07/21 04:46 Estimated GFR > 60 ml/min 12/07/21 04:46 BUN/Creatinine Ratio 13 % 12/07/21 04:46 Glucose 87 mg/dL (65-100) 12/07/21 04:46 Lactic Acid 1.20 mmol/L (0.7-2.0) 11/30/21 17:23 Calcium 8.2 mg/dL (8.4-10.2) L 12/07/21 04:46 Phosphorus 3.20 mg/dL (2.5-4.5) 12/05/21 13:43 Magnesium 1.80 mg/dL (1.7-2.3) 12/03/21 04:24 Total Bilirubin 0.30 mg/dL (0.1-1.2) 12/06/21 07:15 AST 14 units/L (5-40) 12/06/21 07:15 ALT 6 units/L (7-56) L 12/06/21 07:15 Alkaline Phosphatase 87 units/L (35-129) 12/06/21 07:15 Troponin T 0.119 ng/mL (0.00-0.029) H* 11/30/21 15:56 Total Protein 4.3 g/dL (6.3-8.2) L 12/06/21 07:15 Albumin 1.6 g/dL (3.9-5) L 12/06/21 07:15 Albumin/Globulin Ratio 0.6 % 12/06/21 07:15 Triglycerides 108 mg/dL (2-149) 11/30/21 15:56 Cholesterol 82 mg/dL (50-199) 11/30/21 15:56 LDL Cholesterol Direct 38 mg/dL (50-130) L 11/30/21 15:56 HDL Cholesterol 28 mg/dL (40-59) L 11/30/21 15:56 Cholesterol/HDL Ratio 2.92 % 11/30/21 15:56 TSH 1.870 mlU/mL (0.270-4.200) 11/30/21 15:57 Urine Color Yellow (Yellow) 11/30/21 02:50 Urine Turbidity Clear (Clear) 11/30/21 02:50 Urine pH 6.0 (5.0-7.0) 11/30/21 02:50 Ur Specific [place] 1.005 (1.003-1.030) 11/30/21 02:50 Urine Protein <15 mg/dl mg/dL (Negative) 11/30/21 02:50 Urine Glucose (UA) Neg mg/dL (Negative) 11/30/21 02:50 Urine Ketones Neg mg/dL (Negative) 11/30/21 02:50 Urine Blood Sm (Negative) 11/30/21 02:50 Urine Nitrite Neg (Negative) 11/30/21 02:50 Urine Bilirubin Neg (Negative) 11/30/21 02:50 Urine Urobilinogen < 2.0 mg/dL (<2.0) 11/30/21 02:50 Ur Leukocyte Esterase Neg (Negative) 11/30/21 02:50 Urine WBC (Auto) 2.0 /HPF (0.0-6.0) 11/30/21 02:50 Urine RBC (Auto) 2.0 /HPF (0.0-6.0) 11/30/21 02:50 U Epithel Cells (Auto) 1.0 /HPF (0-13.0) 11/30/21 02:50 Urine Bacteria (Auto) 1+ /HPF (Negative) 11/30/21 02:50 Urine Yeast (Budding) 1+ /HPF 11/30/21 02:50 Vancomycin Trough 24.7 ug/mL (5.0-20.0) H 12/06/21 21:31 Blood Type O POSITIVE 12/03/21 14:07 Antibody Screen Negative 12/03/21 14:07 Crossmatch See Detail 12/03/21 14:07 Microbiology: Microbiology 12/05/21 13:43 Peripheral/Venous Blood Culture - Preliminary NO GROWTH AFTER 24 HOURS 12/05/21 13:49 Peripheral/Venous Blood Culture - Preliminary NO GROWTH AFTER 24 HOURS Victor/IV: Voiding Method External Female Catheter Active Medications - Current Medications Current Medications: Generic Name Dose Route Start Last Admin Trade Name Freq PRN Reason Stop Dose Admin Acetaminophen 650 mg 11/30/21 19:24 12/04/21 22:58 Acetaminophen 325 Mg Tab PO 650 mg Q4H PRN Administration Pain MILD(1-3)/Fever >100.5/[id number] Apixaban 2.5 mg 12/05/21 10:00 12/07/21 09:31 Apixaban 2.5 Mg Tab PO 2.5 mg Q12HR SRAVAN Administration Protocol Aspirin 81 mg 12/04/21 14:00 12/07/21 09:30 Aspirin Ec 81 Mg Tab PO 81 mg QDAY SRAVAN Administration Cilostazol 50 mg 12/01/21 22:00 12/07/21 09:30 Cilostazol 100 Mg Tab PO 50 mg BID SRAVAN Administration Docusate Sodium 100 mg 12/01/21 22:00 12/07/21 09:30 Docusate Sodium 100 Mg Cap PO 100 mg BID SRAVAN Administration Gabapentin 100 mg 12/01/21 22:00 12/07/21 09:31 Gabapentin 100 Mg Cap PO 100 mg BID SRAVAN Administration Hydromorphone HCl 0.5 mg 12/01/21 10:42 12/07/21 16:03 Hydromorphone 1 Mg/1 Ml Inj IV 0.5 mg Q4H PRN Administration Pain , Severe (7-10) Cefepime HCl 2 gm in 100 mls @ 200 mls/hr 12/01/21 10:00 12/07/21 09:32 Cefepime/Ns 2 Gm/100 Ml IV 200 mls/hr Q12H SRAVAN Administration Protocol Vancomycin HCl 750 mg/ Sodium 265 mls @ 166.667 mls/hr 12/07/21 11:00 12/07/21 10:53 Chloride IV 166.667 mls/hr Q12H SRAVAN Administration Ondansetron HCl 4 mg 11/30/21 19:24 12/04/21 22:52 Ondansetron 4 Mg/2 Ml Inj IV 4 mg Q8H PRN Administration Nausea And Vomiting Oxycodone/Acetaminophen 2 tab 12/02/21 11:44 12/07/21 14:46 Oxycodone /Acetaminophen 5-325mg Tab PO 2 tab Q8H PRN Administration Pain, Moderate (4-6) Pantoprazole Sodium 40 mg 12/01/21 20:00 12/07/21 09:31 Pantoprazole 40 Mg Tab PO 40 mg QDAY SRAVAN Administration Sodium Chloride 10 ml 11/30/21 22:00 12/07/21 09:32 Sodium Chloride 0.9% 10 Ml Flush Syringe IV 10 ml BID SRAVAN Administration Sodium Chloride 10 ml 11/30/21 19:24 Sodium Chloride 0.9% 10 Ml Flush Syringe IV PRN PRN LINE FLUSH Trazodone HCl 100 mg 12/01/21 22:00 12/06/21 21:15 Trazodone 100 Mg Tab PO 100 mg QHS SRAVAN Administration Venlafaxine HCl 75 mg 12/01/21 20:00 12/07/21 09:31 Venlafaxine 75 Mg Tab PO 75 mg DAILY SRAVAN Administration Nutrition/Malnutrition Assess - Dietary Evaluation Nutrition/Malnutrition Findings: Nutrition Notes Start: 12/05/21 15:54 Freq: Status: Active Protocol: Document 12/06/21 14:55 MERARI (Rec: 12/06/21 15:04 MERARI [id number]) Nutrition Notes Initial or Follow up Brief Note Current Diagnosis Acute Kidney Injury,Sepsis, Malnutrition Other Pertinent Diagnosis Metabolic Encephalopathy, PAD s/p Revascularization, PVD, L- LE Ischemia, .. Current Diet Regular Diet + D Suppl (since B 12/05). Height 5 ft 3 in Weight 47.3 kg [place] Body Weight (kg) 52.27 BMI 18.4 Weight change and time frame No body weight change reported in 1 day. Weight Status Underweight Subjective/Other Information RD consult for malnutrition assessment. No reports available on Pt's PO intake of meals at the time , will assess at F/U. Pt is on Room Air, O2 saturation @ 98%, according to Physical Assessmenty History notes. Percent of energy/protein needs met: Prescribed Regular Diet provides for energy/protein needs (2,289 Kcal/89 g) during LOS; additionally, Dietary Supplements will compensate for possible poor or insufficient PO intake of meals, and sopport wound healing processes with 320 Kcal and 32 g of protein. Minimum of two criteria Yes Energy Intake (non-severe) <75% Estimated Energy Requirement >7 days Interpretation of Weight Loss (severe) >5% in 1 month Fluid Accumulation Mild (non-severe) Reduced [employer] Strength N/A (non-severe) Protein-Calorie Malnutrition Severe #2 Nutrition Diagnosis Increased nutrient needs ( specify in comment below) Comments: Protein to support wound healing processes. Diagnosis Progress(for reassessment Continues documentation) #1 Nutrition Diagnosis Malnutrition,Underweight Diagnosis Progress(for reassessment Continues documentation) Is patient on ventilator? No Is Patient Ambulatory and/or Out of Bed Yes REE-([facility]-ambulatory/OOB) [ 1328.769 [id number]] Calculation Used for Recommendations [facility] Additional Notes Protein: 1.25-1.5 g/Kg ABW; 59 -71 g/day. Fluids: 1 ml/Kcal, or as per MD. Nutrition Intervention Change Diet Order: Continue Regular Diet. Add Supplement/Snack (indicate name/kcal Start 8 fl oz Ensure High /protein ) Protein; BID. Provides kCal: 320 Provides Protein (gm) 32 Goal #1 Support, through dietary supplementation, wound healing processes during LOS. Goal #2 Compensate, through dietary supplementation, for possible poor or insufficient PO intake of meals during LOS. Follow-Up By: 12/12/21 Additional Comments Continue monitoring food tolerance, %PO intake of meals and ONS, and BM. <ARNOLD WELCH Shi - Last Filed: 12/08/21 07:38> Assessment and Plan Assessment and plan: I saw and evaluated the patient. I agree with the findings and the plan of care as documented in the Nurse Practitioner's~note, with the following corrections and additions. Hospitalist Physical - Constitutional Vitals: Temp Pulse Resp BP Pulse Ox 99.1 F 75 8 L 145/67 100 12/08/21 07:18 12/08/21 07:00 12/08/21 07:00 12/08/21 07:00 12/08/21 07:00 HEART Score - HEART Score Troponin: Troponin T 0.119 ng/mL (0.00-0.029) H* 11/30/21 15:56 Results - Labs CBC & Chem 7: 12/08/21 04:09 12/08/21 04:09 Labs: Laboratory Last Values WBC 8.6 K/mm3 (4.5-11.0) 12/08/21 04:09 RBC 2.95 M/mm3 (3.65-5.03) L 12/08/21 04:09 Hgb 7.9 gm/dl (10.1-14.3) L 12/08/21 04:09 Hct 24.1 % (30.3-42.9) L 12/08/21 04:09 MCV 82 fl (79-97) 12/08/21 04:09 MCH 27 pg (28-32) L 12/08/21 04:09 MCHC 33 % (30-34) 12/08/21 04:09 RDW 18.6 % (13.2-15.2) H 12/08/21 04:09 Plt Count 406 K/mm3 (140-440) 12/08/21 04:09 Lymph % (Auto) 13.6 % (13.4-35.0) 12/06/21 07:15 [place] % (Auto) 10.0 % (0.0-7.3) H 12/06/21 07:15 Eos % (Auto) 4.7 % (0.0-4.3) H 12/06/21 07:15 Baso % (Auto) 1.2 % (0.0-1.8) 12/06/21 07:15 Lymph # (Auto) 1.2 K/mm3 (1.2-5.4) 12/06/21 07:15 [place] # (Auto) 0.9 K/mm3 (0.0-0.8) H 12/06/21 07:15 Eos # (Auto) 0.4 K/mm3 (0.0-0.4) 12/06/21 07:15 Baso # (Auto) 0.1 K/mm3 (0.0-0.1) 12/06/21 07:15 Add Manual Diff Complete 12/01/21 04:33 Total Counted 100 12/01/21 04:33 Seg Neutrophils % 70.5 % (40.0-70.0) H 12/06/21 07:15 Seg Neuts % (Manual) 82.0 % (40.0-70.0) H 12/01/21 04:33 Band Neutrophils % 8.0 % 12/01/21 04:33 Lymphocytes % (Manual) 5.0 % (13.4-35.0) L 12/01/21 04:33 Reactive Lymphs % (Man) 0 % 12/01/21 04:33 Monocytes % (Manual) 4.0 % (0.0-7.3) 12/01/21 04:33 Eosinophils % (Manual) 0 % (0.0-4.3) 12/01/21 04:33 Basophils % (Manual) 0 % (0.0-1.8) 12/01/21 04:33 Metamyelocytes % 1.0 % 12/01/21 04:33 Myelocytes % 0 % 12/01/21 04:33 Promyelocytes % 0 % 12/01/21 04:33 Blast Cells % 0 % 12/01/21 04:33 Nucleated RBC % Not Reportable 12/01/21 04:33 Seg Neutrophils # 6.5 K/mm3 (1.8-7.7) 12/06/21 07:15 Seg Neutrophils # Man 17.0 K/mm3 (1.8-7.7) H 12/01/21 04:33 Band Neutrophils # 1.7 K/mm3 12/01/21 04:33 Lymphocytes # (Manual) 1.0 K/mm3 (1.2-5.4) L 12/01/21 04:33 Abs React Lymphs (Man) 0.0 K/mm3 12/01/21 04:33 Monocytes # (Manual) 0.8 K/mm3 (0.0-0.8) 12/01/21 04:33 Eosinophils # (Manual) 0.0 K/mm3 (0.0-0.4) 12/01/21 04:33 Basophils # (Manual) 0.0 K/mm3 (0.0-0.1) 12/01/21 04:33 Metamyelocytes # 0.2 K/mm3 12/01/21 04:33 Myelocytes # 0.0 K/mm3 12/01/21 04:33 Promyelocytes # 0.0 K/mm3 12/01/21 04:33 Blast Cells # 0.0 K/mm3 12/01/21 04:33 WBC Morphology Not Reportable 12/01/21 04:33 Hypersegmented Neuts Not Reportable 12/01/21 04:33 Hyposegmented Neuts Not Reportable 12/01/21 04:33 Hypogranular Neuts Not Reportable 12/01/21 04:33 Smudge Cells Not Reportable 12/01/21 04:33 Toxic Granulation Not Reportable 12/01/21 04:33 Toxic Vacuolation Not Reportable 12/01/21 04:33 Dohle Bodies Not Reportable 12/01/21 04:33 Pelger-Huet Anomaly Not Reportable 12/01/21 04:33 Mary Rods Not Reportable 12/01/21 04:33 Platelet Estimate Consistent w auto 12/01/21 04:33 Clumped Platelets Not Reportable 12/01/21 04:33 Plt Clumps, EDTA Not Reportable 12/01/21 04:33 Large Platelets Not Reportable 12/01/21 04:33 Giant Platelets Not Reportable 12/01/21 04:33 Platelet Satelliting Not Reportable 12/01/21 04:33 Plt Morphology Comment Not Reportable 12/01/21 04:33 RBC Morphology Not Reportable 12/01/21 04:33 Dimorphic RBCs Not Reportable 12/01/21 04:33 Polychromasia Not Reportable 12/01/21 04:33 Hypochromasia 2+ 12/01/21 04:33 Poikilocytosis Few 12/01/21 04:33 Anisocytosis 1+ 12/01/21 04:33 Microcytosis 1+ 07/15/22 04:33 Macrocytosis Not Reportable 12/01/21 04:33 Spherocytes Not Reportable 12/01/21 04:33 Pappenheimer Bodies Not Reportable 12/01/21 04:33 Sickle Cells Not Reportable 12/01/21 04:33 Target Cells Not Reportable 12/01/21 04:33 Tear Drop Cells Not Reportable 12/01/21 04:33 Ovalocytes Few 12/01/21 04:33 Helmet Cells Not Reportable 12/01/21 04:33 Ybarra-Albert Lea Bodies Not Reportable 12/01/21 04:33 Sidell Rings Not Reportable 12/01/21 04:33 [place] Cells Not Reportable 12/01/21 04:33 Bite Cells Not Reportable 12/01/21 04:33 Crenated Cell Not Reportable 12/01/21 04:33 Elliptocytes Rare 12/01/21 04:33 Acanthocytes (Spur) Not Reportable 12/01/21 04:33 Rouleaux Not Reportable 12/01/21 04:33 Hemoglobin C Crystals Not Reportable 12/01/21 04:33 Schistocytes Not Reportable 12/01/21 04:33 Malaria parasites Not Reportable 12/01/21 04:33 Kvng Bodies Not Reportable 12/01/21 04:33 Hem Pathologist Commnt No 12/01/21 04:33 PT 14.9 Sec. (12.2-14.9) 12/04/21 04:35 INR 1.05 (0.87-1.13) 12/04/21 04:35 APTT 43.1 Sec. (24.2-36.6) H 11/30/21 15:56 VBG pH 7.509 (7.320-7.420) H 11/30/21 15:57 Sodium 140 mmol/L (137-145) 12/08/21 04:09 Potassium 3.1 mmol/L (3.6-5.0) L D 12/08/21 04:09 Chloride 108.5 mmol/L (98-107) H 12/08/21 04:09 Carbon Dioxide 24 mmol/L (22-30) 12/08/21 04:09 Anion Gap 11 mmol/L 12/08/21 04:09 BUN 6 mg/dL (7-17) L 12/08/21 04:09 Creatinine 0.5 mg/dL (0.6-1.2) L 12/08/21 04:09 Estimated GFR > 60 ml/min 12/08/21 04:09 BUN/Creatinine Ratio 12 % 12/08/21 04:09 Glucose 83 mg/dL (65-100) 12/08/21 04:09 Lactic Acid 1.20 mmol/L (0.7-2.0) 11/30/21 17:23 Calcium 7.7 mg/dL (8.4-10.2) L 12/08/21 04:09 Phosphorus 3.20 mg/dL (2.5-4.5) 12/05/21 13:43 Magnesium 1.80 mg/dL (1.7-2.3) 12/03/21 04:24 Total Bilirubin 0.30 mg/dL (0.1-1.2) 12/06/21 07:15 AST 14 units/L (5-40) 12/06/21 07:15 ALT 6 units/L (7-56) L 12/06/21 07:15 Alkaline Phosphatase 87 units/L (35-129) 12/06/21 07:15 Troponin T 0.119 ng/mL (0.00-0.029) H* 11/30/21 15:56 Total Protein 4.3 g/dL (6.3-8.2) L 12/06/21 07:15 Albumin 1.6 g/dL (3.9-5) L 12/06/21 07:15 Albumin/Globulin Ratio 0.6 % 12/06/21 07:15 Triglycerides 108 mg/dL (2-149) 11/30/21 15:56 Cholesterol 82 mg/dL (50-199) 11/30/21 15:56 LDL Cholesterol Direct 38 mg/dL (50-130) L 11/30/21 15:56 HDL Cholesterol 28 mg/dL (40-59) L 11/30/21 15:56 Cholesterol/HDL Ratio 2.92 % 11/30/21 15:56 TSH 1.870 mlU/mL (0.270-4.200) 11/30/21 15:57 Urine Color Yellow (Yellow) 11/30/21 02:50 Urine Turbidity Clear (Clear) 11/30/21 02:50 Urine pH 6.0 (5.0-7.0) 11/30/21 02:50 Ur Specific [place] 1.005 (1.003-1.030) 11/30/21 02:50 Urine Protein <15 mg/dl mg/dL (Negative) 11/30/21 02:50 Urine Glucose (UA) Neg mg/dL (Negative) 11/30/21 02:50 Urine Ketones Neg mg/dL (Negative) 11/30/21 02:50 Urine Blood Sm (Negative) 11/30/21 02:50 Urine Nitrite Neg (Negative) 11/30/21 02:50 Urine Bilirubin Neg (Negative) 11/30/21 02:50 Urine Urobilinogen < 2.0 mg/dL (<2.0) 11/30/21 02:50 Ur Leukocyte Esterase Neg (Negative) 11/30/21 02:50 Urine WBC (Auto) 2.0 /HPF (0.0-6.0) 11/30/21 02:50 Urine RBC (Auto) 2.0 /HPF (0.0-6.0) 11/30/21 02:50 U Epithel Cells (Auto) 1.0 /HPF (0-13.0) 11/30/21 02:50 Urine Bacteria (Auto) 1+ /HPF (Negative) 11/30/21 02:50 Urine Yeast (Budding) 1+ /HPF 11/30/21 02:50 Vancomycin Trough 24.7 ug/mL (5.0-20.0) H 12/06/21 21:31 Blood Type O POSITIVE 12/03/21 14:07 Antibody Screen Negative 12/03/21 14:07 Crossmatch See Detail 12/03/21 14:07 Microbiology: Microbiology 12/05/21 13:43 Peripheral/Venous Blood Culture - Preliminary NO GROWTH AFTER 48 HOURS 12/05/21 13:49 Peripheral/Venous Blood Culture - Preliminary NO GROWTH AFTER 48 HOURS 12/04/21 Unknown Other (Please Specify:) - Wound Surgical Culture - Preliminary Klebsiella Pneumoniae Victor/IV: Voiding Method External Female Catheter Active Medications - Current Medications Current Medications: Generic Name Dose Route Start Last Admin Trade Name Freq PRN Reason Stop Dose Admin Acetaminophen 650 mg 11/30/21 19:24 12/04/21 22:58 Acetaminophen 325 Mg Tab PO 650 mg Q4H PRN Administration Pain MILD(1-3)/Fever >100.5/GONZALEZ Apixaban 2.5 mg 12/05/21 10:00 12/07/21 21:42 Apixaban 2.5 Mg Tab PO 2.5 mg Q12HR SRAVAN Administration Protocol Aspirin 81 mg 12/04/21 14:00 12/07/21 09:30 Aspirin Ec 81 Mg Tab PO 81 mg QDAY SRAVAN Administration Cilostazol 50 mg 12/01/21 22:00 12/07/21 21:42 Cilostazol 100 Mg Tab PO 50 mg BID SRAVAN Administration Docusate Sodium 100 mg 12/01/21 22:00 12/07/21 21:42 Docusate Sodium 100 Mg Cap PO 100 mg BID SRAVAN Administration Gabapentin 100 mg 12/01/21 22:00 12/07/21 21:42 Gabapentin 100 Mg Cap PO 100 mg BID SRAVAN Administration Hydromorphone HCl 0.5 mg 12/01/21 10:42 12/08/21 04:35 Hydromorphone 1 Mg/1 Ml Inj IV 0.5 mg Q4H PRN Administration Pain , Severe (7-10) Cefepime HCl 2 gm in 100 mls @ 200 mls/hr 12/01/21 10:00 12/07/21 21:44 Cefepime/Ns 2 Gm/100 Ml IV 200 mls/hr Q12H SRAVAN Administration Protocol Vancomycin HCl 750 mg/ Sodium 265 mls @ 166.667 mls/hr 12/07/21 11:00 22:08 Chloride IV 166.667 mls/hr Q12H SRAVAN Administration Ondansetron HCl 4 mg 11/30/21 19:24 12/04/21 22:52 Ondansetron 4 Mg/2 Ml Inj IV 4 mg Q8H PRN Administration Nausea And Vomiting Oxycodone/Acetaminophen 2 tab 12/02/21 11:44 12/07/21 22:09 Oxycodone /Acetaminophen 5-325mg Tab PO 2 tab Q8H PRN Administration Pain, Moderate (4-6) Pantoprazole Sodium 40 mg 12/01/21 20:00 12/07/21 09:31 Pantoprazole 40 Mg Tab PO 40 mg QDAY SRAVAN Administration Sodium Chloride 10 ml 11/30/21 22:00 12/07/21 21:44 Sodium Chloride 0.9% 10 Ml Flush Syringe IV 10 ml BID SRAVAN Administration Sodium Chloride 10 ml 11/30/21 19:24 Sodium Chloride 0.9% 10 Ml Flush Syringe IV PRN PRN LINE FLUSH Trazodone HCl 100 mg 12/01/21 22:00 12/07/21 21:42 Trazodone 100 Mg Tab PO 100 mg QHS SRAVAN Administration Venlafaxine HCl 75 mg 12/01/21 20:00 12/07/21 09:31 Venlafaxine 75 Mg Tab PO 75 mg DAILY SRAVAN Administration Nutrition/Malnutrition Assess - Dietary Evaluation Nutrition/Malnutrition Findings: Nutrition Notes Start: 12/05/21 15:54 Freq: Status: Active Protocol: Document 12/06/21 14:55 MERARI (Rec: 12/06/21 15:04 MERARI [email or web address]) Nutrition Notes Initial or Follow up Brief Note Current Diagnosis Acute Kidney Injury,Sepsis, Malnutrition Other Pertinent Diagnosis Metabolic Encephalopathy, PAD s/p Revascularization, PVD, L- LE Ischemia, .. Current Diet Regular Diet + D Suppl (since B 12/05). Height 5 ft 3 in Weight 47.3 kg [place] Body Weight (kg) 52.27 BMI 18.4 Weight change and time frame No body weight change reported in 1 day. Weight Status Underweight Subjective/Other Information RD consult for malnutrition assessment. No reports available on Pt's PO intake of meals at the time , will assess at F/U. Pt is on Room Air, O2 saturation @ 98%, according to Physical Assessmenty History notes. Percent of energy/protein needs met: Prescribed Regular Diet provides for energy/protein needs (2,289 Kcal/89 g) during LOS; additionally, Dietary Supplements will compensate for possible poor or insufficient PO intake of meals, and sopport wound healing processes with 320 Kcal and 32 g of protein. Minimum of two criteria Yes Energy Intake (non-severe) <75% Estimated Energy Requirement >7 days Interpretation of Weight Loss (severe) >5% in 1 month Fluid Accumulation Mild (non-severe) Reduced [employer] Strength N/A (non-severe) Protein-Calorie Malnutrition Severe #2 Nutrition Diagnosis Increased nutrient needs ( specify in comment below) Comments: Protein to support wound healing processes. Diagnosis Progress(for reassessment Continues documentation) #1 Nutrition Diagnosis Malnutrition,Underweight Diagnosis Progress(for reassessment Continues documentation) Is patient on ventilator? No Is Patient Ambulatory and/or Out of Bed Yes [facility] [ 1328.769 [id number]] Calculation [facility]ations [facility] Additional Notes Protein: 1.25-1.5 g/Kg ABW; 59 -71 g/day. Fluids: 1 ml/Kcal, or as per MD. Nutrition Intervention Change Diet Order: Continue Regular Diet. Add Supplement/Snack (indicate name/kcal Start 8 fl oz Ensure High /protein ) Protein; BID. Provides kCal: 320 Provides Protein (gm) 32 Goal #1 Support, through dietary supplementation, wound healing processes during LOS. Goal #2 Compensate, through dietary supplementation, for possible poor or insufficient PO intake of meals during LOS. Follow-Up By: 12/12/21 Additional Comments Continue monitoring food tolerance, %PO intake of meals and ONS, and BM.
[2021-12-07] MEDS: traZODone 100 MG TAB PO SCH (21:42)
[2021-12-08] MEDS: HYDROmorphone 1 MG/1 ML INJ IV PRN ×3 (04:35→20:28)
[2021-12-08 04:55] LABS: Hematocrit 24.1 % (30.3-42.9); Hemoglobin 7.9 gm/dl (10.1-14.3); Mean Corpuscular HGB Conc 33 % (30-34); Mean Corpuscular Volume 82 fl (79-97); Platelet Count 406 K/mm3 (140-440); Red Blood Count 2.95 M/mm3 (3.65-5.03); Red Cell Distribution Width 18.6 % (13.2-15.2)
[2021-12-08 05:13] LABS: Blood Urea Nitrogen 6 mg/dL (7-17); Calcium 7.7 mg/dL (8.4-10.2); Hemolysis Index 10
[2021-12-08 05:14] LABS: BUN/Creatinine Ratio 12
[2021-12-08] MEDS ORDERED: POTASSIUM CHLORIDE ER 20 MEQ TAB PO SCH (09:00)
[2021-12-08] MEDS: ASPIRIN EC 81 MG TAB PO SCH (10:51)
[2021-12-08] MEDS: DOCUSATE SODIUM 100 MG CAP PO SCH ×2 (10:51→22:12)
[2021-12-08] MEDS: CILOSTAZOL 100 MG TAB PO SCH ×2 (10:51→22:11)
[2021-12-08] MEDS: CEFEPIME/NS 2 GM/100 ML 2 GM/100 ML BAG IV SCH ×2 (10:51→22:07)
[2021-12-08] MEDS: PANTOPRAZOLE 40 MG TAB PO SCH (10:51)
[2021-12-08] MEDS: GABAPENTIN 100 MG CAP PO SCH ×2 (10:52→22:12)
[2021-12-08] MEDS: APIXABAN 2.5 MG TAB PO SCH ×2 (10:52→22:12)
[2021-12-08] MEDS: VENLAFAXINE 75 MG TAB PO SCH (10:54)
[2021-12-08] MEDS: VANCOMYCIN 750 MG in SODIUM CHLORIDE 0.9% 250ML 250 ML IV SCH ×2 (12:26→22:09)
--- NOTE | 2021-12-08 15:09 | Progress Note ---
Assessment and Plan Wound care nurse saw patient yesterday. Per note, wound care unable to place bridging wound VAC secondary to insufficient supplies. She is to return today per her note. Once patient has her wound VAC in place and is appropriately treated, the patient will be discharged home as she already has a home wound VAC. Subjective Date of service: 12/08/21 Principal diagnosis: PVD with infected graft Interval history: Patient stable with no complaints. Patient has wound VAC in her groin wound on the left. Wet-to-dry dressings on the middle and lower incisions. Objective - Constitutional Vitals: Vital Signs - 12hr 12/08/21 12/08/21 12/08/21 04:00 04:10 04:35 Temperature 97.3 F L Pulse Rate 81 89 Pulse Rate [ From Monitor] Respiratory 7 L 12 Rate Blood Pressure 127/60 O2 Sat by Pulse 95 Oximetry 12/08/21 12/08/21 12/08/21 05:01 05:05 06:00 Temperature Pulse Rate 78 79 Pulse Rate [ From Monitor] Respiratory 18 12 10 L Rate Blood Pressure 143/65 149/66 O2 Sat by Pulse 99 97 Oximetry 12/08/21 12/08/21 12/08/21 07:00 07:18 08:00 Temperature 99.1 F Pulse Rate 75 75 Pulse Rate [ 86 From Monitor] Respiratory 8 L 10 L Rate Blood Pressure 145/67 157/71 O2 Sat by Pulse 100 97 Oximetry 12/08/21 12/08/21 12/08/21 09:01 10:00 11:00 Temperature Pulse Rate 83 86 84 Pulse Rate [ From Monitor] Respiratory 15 16 15 Rate Blood Pressure 157/52 143/71 145/74 O2 Sat by Pulse 97 100 99 Oximetry 12/08/21 12/08/21 12/08/21 11:43 12:00 12:01 Temperature 98.9 F Pulse Rate 87 91 H Pulse Rate [ 84 From Monitor] Respiratory 16 19 Rate Blood Pressure 158/74 O2 Sat by Pulse 97 99 Oximetry General appearance: Present: no acute distress - EENT Eyes: EOM intact ENT: hearing intact - Neck Neck: supple, normal ROM - Respiratory Respiratory effort: normal Extremities: abnormal (Postsurgical changes to left leg) - Gastrointestinal General gastrointestinal: Present: deferred Rectal Exam: deferred - Genitourinary Female genitourinary: deferred - Psychiatric Psychiatric: cooperative - Labs CBC & Chem 7: 12/08/21 04:09 12/08/21 13:33 Labs: Abnormal lab results 12/03/21 12/08/21 12/08/21 Range/Units 14:07 04:09 04:09 RBC 2.95 L (3.65-5.03) M/mm3 Hgb 7.9 L (10.1-14.3) gm/dl Hct 24.1 L (30.3-42.9) % MCH 27 L (28-32) pg RDW 18.6 H (13.2-15.2) % Potassium 3.1 L D (3.6-5.0) mmol/L Chloride 108.5 H (98-107) mmol/L BUN 6 L (7-17) mg/dL Creatinine 0.5 L (0.6-1.2) mg/dL Calcium 7.7 L (8.4-10.2) mg/dL Crossmatch See Detail Medications & Allergies - Medications Allergies/Adverse Reactions: Allergies No Known Allergies Allergy (Verified 10/20/21 09:17) Home Medications: Home Medications Medication Instructions Recorded Confirmed Last Taken Type Apixaban [Eliquis] 2.5 mg PO Q12HR #60 tab 09/01/21 12/04/21 Unknown Rx AtorvaSTATin [Lipitor] 40 mg PO DAILY 09/01/21 12/04/21 08/31/21 History 1 tab Clopidogrel [Plavix] 75 mg PO QDAY #90 tablet 09/01/21 12/04/21 Unknown Rx Gabapentin 100 mg PO BID 09/01/21 12/04/21 08/31/21 History 2 tabs Pantoprazole [Protonix] 40 mg PO QDAY #90 tablet 09/01/21 12/04/21 Unknown Rx amLODIPine 5 mg PO DAILY 09/01/21 12/04/21 08/31/21 History 1 tab carvediloL [Coreg] 25 mg PO BID 09/01/21 12/04/21 08/31/21 History 2 tabs cilostazoL [Pletal] 50 mg PO BID 09/01/21 12/04/21 08/31/21 History 2 tabs traZODone [Desyrel] 100 mg PO QHS 09/01/21 12/04/21 08/31/21 History 1 tab Venlafaxine [Effexor] 75 mg PO DAILY 11/02/21 12/04/21 Unknown History Active Medications: Generic Name Dose Route Start Last Admin Trade Name Freq PRN Reason Stop Dose Admin Acetaminophen 650 mg 11/30/21 19:24 12/04/21 22:58 Acetaminophen 325 Mg Tab PO 650 mg Q4H PRN Administration Pain MILD(1-3)/Fever >100.5/GONZALEZ Apixaban 2.5 mg 12/05/21 10:00 12/08/21 10:52 Apixaban 2.5 Mg Tab PO 2.5 mg Q12HR SRAVAN Administration Protocol Aspirin 81 mg 12/04/21 14:00 12/08/21 10:51 Aspirin Ec 81 Mg Tab PO 81 mg QDAY SRAVAN Administration Cilostazol 50 mg 12/01/21 22:00 12/08/21 10:51 Cilostazol 100 Mg Tab PO 50 mg BID SRAVAN Administration Docusate Sodium 100 mg 12/01/21 22:00 12/08/21 10:51 Docusate Sodium 100 Mg Cap PO 100 mg BID SRAVAN Administration Gabapentin 100 mg 12/01/21 22:00 12/08/21 10:52 Gabapentin 100 Mg Cap PO 100 mg BID SRAVAN Administration Hydromorphone HCl 0.5 mg 12/01/21 10:42 12/08/21 08:54 Hydromorphone 1 Mg/1 Ml Inj IV 0.5 mg Q4H PRN Administration Pain , Severe (7-10) Cefepime HCl 2 gm in 100 mls @ 200 mls/hr 12/01/21 10:00 12/08/21 10:51 Cefepime/Ns 2 Gm/100 Ml IV 12/13/21 22:29 200 mls/hr Q12H SRAVAN Administration Protocol Vancomycin HCl 750 mg/ Sodium 265 mls @ 166.667 mls/hr 12/07/21 11:00 12/08/21 12:26 Chloride IV 166.667 mls/hr Q12H SRAVAN Administration Ondansetron HCl 4 mg 11/30/21 19:24 12/04/21 22:52 Ondansetron 4 Mg/2 Ml Inj IV 4 mg Q8H PRN Administration Nausea And Vomiting Oxycodone/Acetaminophen 2 tab 12/02/21 11:44 12/07/21 22:09 Oxycodone /Acetaminophen 5-325mg Tab PO 2 tab Q8H PRN Administration Pain, Moderate (4-6) Pantoprazole Sodium 40 mg 12/01/21 20:00 12/08/21 10:51 Pantoprazole 40 Mg Tab PO 40 mg QDAY SRAVAN Administration Sodium Chloride 10 ml 11/30/21 22:00 12/08/21 10:52 Sodium Chloride 0.9% 10 Ml Flush Syringe IV 10 ml BID SRAVAN Administration Sodium Chloride 10 ml 11/30/21 19:24 Sodium Chloride 0.9% 10 Ml Flush Syringe IV PRN PRN LINE FLUSH Trazodone HCl 100 mg 12/01/21 22:00 12/07/21 21:42 Trazodone 100 Mg Tab PO 100 mg QHS SRAVAN Administration Venlafaxine HCl 75 mg 12/01/21 20:00 12/08/21 10:54 Venlafaxine 75 Mg Tab PO 75 mg DAILY SRAVAN Administration HEART Score - HEART Score Troponin: Troponin T 0.119 ng/mL (0.00-0.029) H* 11/30/21 15:56
[2021-12-08] MEDS: oxyCODONE /ACETAMINOPHEN 5-325MG TAB PO PRN (15:31)
--- NOTE | 2021-12-08 16:34 | Progress Note ---
<VINCENT KERNS - Last Filed: 12/08/21 16:38> Assessment and Plan Assessment and plan: This is a 56-year-old female with severe PVD, CAD, HTN, HLD, anemia, EtOH and tobacco abuse who is s/p left femoral to below the knee popliteal artery bypass complicated by compartment syndrome s/p fasciotomy and right leg revasculariz ation who was discharged to SNF after almost 3 week stay via EMS for altered mental status and was hypoentive in ED despite fluid resuscitation was eventually started on Levophed with a placement of central line. Patient was also anemic with a hemoglobin of 6.2 and 1 unit PRBC was transfused. She also had leukocytosis, acute kidney injury, elevated troponin and purulent drainage from wounds. Patient was admitted to the hospital service with consult to vascular surgery, ID and CCM with Sepsis. Hospital Course to Date: 12/01: Additional LR boluses, KCL 40 PO, prn diludid given for pain. Wean levophed as tolerated. 12/02: Adjustment to pain regimen, CTA pelvis and lower extremities with contrast obtained. Phosphorus and magnesium repleted 12/03: No vascular interventions till Saturday/Saturday. Pain better controlled. No acute events overnight. Transfer to [facility] 12/04: OR today for surgery by IR. Am labs ordered. 12/05/21-patient is seen at bedside. Patient alert and oriented. V/S stable. She is s/p excision of Infected Left Femoral to Below-Knee Popliteal Artery Bypass Graft-done 12/04/21. Wound VAC Placement left groin. patient reports pain left. Unable to feel left pedal pulse with doppler. patient's nurse at bedside at the time of assessment. I spoke to Dr Edge-vascular surgeon-he agreed to come and re-assess pt. 12/06: Remains afebrile and hemodynamicaly stable. Vascular surgery recommendations noted. Plan to discharge back to subacute rehab when okayed by ID, awaiting antibiotics recommendations. 12/07: RUTH overnight. Vascular Surg and ID recommendations noted. PT recommends subacute rehab, however patient refused subacute rehab and requested to go home with [facility]. Thorough discussion with patient at the bedside, discussing risks and potential worsening of condition without proper care and supervision, especially since she lives alone at home. Patient verbalized understanding of the info provided but still refused subacute rehab and was adamant to be discharge home. last chalker to switch patient to a home wound VAC. Plan for possible discharge home tomorrow with [facility] and home wound care. Case management to arrange. 12/08: RUTH overnight. Awaiting home wound vac supplies, per case management supplies will be delivered tomorrow. Continue current supportive measures. Plan for possible discharge tomorrow once wound vac supplies is available and wound vac is bridge by photo print specialist. Assessment and Plan: Septic shock (POA), leukocytosis(improved) -Presented with leukocytosis, acute kidney injury, purulent drainage from leg wounds -Infectious disease consulted, appreciate recommendations -Antibiotic therapy with cefepime and vancomycin -WOCN consulted for wound care -f/u blood culture -Monitor WBC and temperature curve -Per ID: Okay to discharge with Levaquin 750 mg every 24 hours to complete 7 further days Severe PVD s/p left femoral to below-knee popliteal artery bypass with fasciotomy, right lower extremity vascularization -Presented with Presented with leukocytosis, and purulent drainage from leg wounds -CTA BLE shows air within the left femoral to popliteal artery bypass graft as well as in fluid collections along the graft. 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 -LLE wound vac in placed, no s/s of any complications noted -Continue ASA,Eliquis, Pletal, and gabapentin -Vascular checks per protocol -Continue wound care per Vascular Surgery -Wound Care consulted Acute Anemia -Presented with low H&H, s/p 5units of PRBCs -H&H stable this am -Continue to monitor for signs of bleeding -Transfuse for hgb less than 7 Neuro: h/o CVA, Depression, EtOH abuse -Reorientation as needed -Maintain sleep-wake cycle -As needed analgesia -Resumed home meds Cardiac: Hypertension -Presented with hypotension most likelu due to sepsis required vasopressors -BP stable now -Continue Blood pressure monitoring per protocol -Maintain SBP less than 120 Nicotine Dependence -Per patient last cigarettes was a week ago -Smoking cessation education provided, patient voiced understanding and agreed with the info provided -Admit that quitting is hard and she still having urges, Nicotine patch ordered GI: Moderate Protein calorie malnutrition -Regular diet with nutritional supplementation -Nutrition consulted -BR: colace : Acute kidney injury secondary to vasomotor nephropathy, Hypokalemia(resolved) -Renal function back to baseline -Monitor intake and output -Renally dose medications -Avoid nephrotoxic medications -Trend BMP GI/DVT Prophylaxis -PPI-Protonix -On Eliquis Advance Care Planning -Disease education data, care plan, diagnoses, and prognosis were discussed with patient at the bedside. Patient is full code. Patient acknowledged understanding and agreement with current care plan. -Plan to discharge back to subacute rehab when okayed by ID, awaiting antibiotics recommendations The high probability of a clinically significant, sudden or life threatening deterioration of the [multiple] system(s) required my full and direct attention, intervention and personal management. The aggregate critical care time was [60] minutes. This time is in addition to time spent performing reported procedures but includes the following: [x] Data Review and interpretation [x] Patient assessment and monitoring of vital signs [x] Documentation [x] Medication orders and management Disposition Plan: IMCU Total Time Spent with Patient (Minutes): 60 History Interval history: Patient seen and examined at the bedside. Remains stable on RA. LLE clean dressing with wound vac noted, no s/s of any complications appreciated. RUTH overnight Hospitalist Physical - Physical exam Narrative exam: General appearance: Present: no acute distress, cachectic - EENT Eyes: Present: PERRL, EOM intact ENT: hearing intact - Neck Neck: Present: normal ROM - Respiratory Respiratory effort: normal Respiratory: bilateral: diminished - Cardiovascular Rhythm: regular Heart Sounds: Present: S1 & S2 - Extremities Extremities: no ischemia, pulses intact, pulses symmetrical, abnormal (LLE clean and intact dressing with Wound vac. No complications noted) Extremity abnormal: edema - Peripheral Assessment Left Lower Extremity Edema Type: Pitting Edema Degree: 3+ Capillary Refill: < 3 seconds Skin Temperature: Warm Peripheral Pulses: abnormal (LLE pulses appreciated with a doppler) - Abdominal General gastrointestinal: soft, non-distended, normal bowel sounds - Integumentary Integumentary: Present: warm, dry - Psychiatric Psychiatric: appropriate mood/affect, cooperative - Neurologic Neurologic: moves all extremities (LLE with limited ROM) - Allied Health Allied health notes reviewed: nursing, case management - Constitutional Vitals: Temp Pulse Resp BP Pulse Ox 98.9 F 98 H 21 154/84 99 12/08/21 11:43 12/08/21 15:00 12/08/21 15:00 12/08/21 15:00 12/08/21 15:00 HEART Score - HEART Score Troponin: Troponin T 0.119 ng/mL (0.00-0.029) H* 11/30/21 15:56 Results - Labs CBC & Chem 7: 12/08/21 04:09 12/08/21 13:33 Labs: Laboratory Last Values WBC 8.6 K/mm3 (4.5-11.0) 12/08/21 04:09 RBC 2.95 M/mm3 (3.65-5.03) L 12/08/21 04:09 Hgb 7.9 gm/dl (10.1-14.3) L 12/08/21 04:09 Hct 24.1 % (30.3-42.9) L 12/08/21 04:09 MCV 82 fl (79-97) 12/08/21 04:09 MCH 27 pg (28-32) L 12/08/21 04:09 MCHC 33 % (30-34) 12/08/21 04:09 RDW 18.6 % (13.2-15.2) H 12/08/21 04:09 Plt Count 406 K/mm3 (140-440) 12/08/21 04:09 Lymph % (Auto) 13.6 % (13.4-35.0) 12/06/21 07:15 [place] % (Auto) 10.0 % (0.0-7.3) H 12/06/21 07:15 Eos % (Auto) 4.7 % (0.0-4.3) H 12/06/21 07:15 Baso % (Auto) 1.2 % (0.0-1.8) 12/06/21 07:15 Lymph # (Auto) 1.2 K/mm3 (1.2-5.4) 12/06/21 07:15 [place] # (Auto) 0.9 K/mm3 (0.0-0.8) H 12/06/21 07:15 Eos # (Auto) 0.4 K/mm3 (0.0-0.4) 12/06/21 07:15 Baso # (Auto) 0.1 K/mm3 (0.0-0.1) 12/06/21 07:15 Add Manual Diff Complete 12/01/21 04:33 Total Counted 100 12/01/21 04:33 Seg Neutrophils % 70.5 % (40.0-70.0) H 12/06/21 07:15 Seg Neuts % (Manual) 82.0 % (40.0-70.0) H 12/01/21 04:33 Band Neutrophils % 8.0 % 12/01/21 04:33 Lymphocytes % (Manual) 5.0 % (13.4-35.0) L 12/01/21 04:33 Reactive Lymphs % (Man) 0 % 12/01/21 04:33 Monocytes % (Manual) 4.0 % (0.0-7.3) 12/01/21 04:33 Eosinophils % (Manual) 0 % (0.0-4.3) 12/01/21 04:33 Basophils % (Manual) 0 % (0.0-1.8) 12/01/21 04:33 Metamyelocytes % 1.0 % 12/01/21 04:33 Myelocytes % 0 % 12/01/21 04:33 Promyelocytes % 0 % 12/01/21 04:33 Blast Cells % 0 % 12/01/21 04:33 Nucleated RBC % Not Reportable 12/01/21 04:33 Seg Neutrophils # 6.5 K/mm3 (1.8-7.7) 12/06/21 07:15 Seg Neutrophils # Man 17.0 K/mm3 (1.8-7.7) H 12/01/21 04:33 Band Neutrophils # 1.7 K/mm3 12/01/21 04:33 Lymphocytes # (Manual) 1.0 K/mm3 (1.2-5.4) L 12/01/21 04:33 Abs React Lymphs (Man) 0.0 K/mm3 12/01/21 04:33 Monocytes # (Manual) 0.8 K/mm3 (0.0-0.8) 12/01/21 04:33 Eosinophils # (Manual) 0.0 K/mm3 (0.0-0.4) 12/01/21 04:33 Basophils # (Manual) 0.0 K/mm3 (0.0-0.1) 12/01/21 04:33 Metamyelocytes # 0.2 K/mm3 12/01/21 04:33 Myelocytes # 0.0 K/mm3 12/01/21 04:33 Promyelocytes # 0.0 K/mm3 12/01/21 04:33 Blast Cells # 0.0 K/mm3 12/01/21 04:33 WBC Morphology Not Reportable 12/01/21 04:33 Hypersegmented Neuts Not Reportable 12/01/21 04:33 Hyposegmented Neuts Not Reportable 12/01/21 04:33 Hypogranular Neuts Not Reportable 12/01/21 04:33 Smudge Cells Not Reportable 12/01/21 04:33 Toxic Granulation Not Reportable 12/01/21 04:33 Toxic Vacuolation Not Reportable 12/01/21 04:33 Dohle Bodies Not Reportable 12/01/21 04:33 Pelger-Huet Anomaly Not Reportable 12/01/21 04:33 Mary Rods Not Reportable 12/01/21 04:33 Platelet Estimate Consistent w auto 12/01/21 04:33 Clumped Platelets Not Reportable 12/01/21 04:33 Plt Clumps, EDTA Not Reportable 12/01/21 04:33 Large Platelets Not Reportable 12/01/21 04:33 Giant Platelets Not Reportable 12/01/21 04:33 Platelet Satelliting Not Reportable 12/01/21 04:33 Plt Morphology Comment Not Reportable 12/01/21 04:33 RBC Morphology Not Reportable 12/01/21 04:33 Dimorphic RBCs Not Reportable 12/01/21 04:33 Polychromasia Not Reportable 12/01/21 04:33 Hypochromasia 2+ 12/01/21 04:33 Poikilocytosis Few 12/01/21 04:33 Anisocytosis 1+ 12/01/21 04:33 Microcytosis 1+ 12/01/21 04:33 Macrocytosis Not Reportable 12/01/21 04:33 Spherocytes Not Reportable 12/01/21 04:33 Pappenheimer Bodies Not Reportable 12/01/21 04:33 Sickle Cells Not Reportable 12/01/21 04:33 Target Cells Not Reportable 12/01/21 04:33 Tear Drop Cells Not Reportable 12/01/21 04:33 Ovalocytes Few 12/01/21 04:33 Helmet Cells Not Reportable 12/01/21 04:33 Ybarra-[place] Bodies Not Reportable 12/01/21 04:33 [place] Rings Not Reportable 12/01/21 04:33 [place] Cells Not Reportable 12/01/21 04:33 Bite Cells Not Reportable 12/01/21 04:33 Crenated Cell Not Reportable 12/01/21 04:33 Elliptocytes Rare 12/01/21 04:33 Acanthocytes (Spur) Not Reportable 12/01/21 04:33 Rouleaux Not Reportable 12/01/21 04:33 Hemoglobin C Crystals Not Reportable 12/01/21 04:33 Schistocytes Not Reportable 12/01/21 04:33 Malaria parasites Not Reportable 12/01/21 04:33 Kvng Bodies Not Reportable 12/01/21 04:33 Hem Pathologist Commnt No 12/01/21 04:33 PT 14.9 Sec. (12.2-14.9) 12/04/21 04:35 INR 1.05 (0.87-1.13) 12/04/21 04:35 APTT 43.1 Sec. (24.2-36.6) H 11/30/21 15:56 VBG pH 7.509 (7.320-7.420) H 11/30/21 15:57 Sodium 140 mmol/L (137-145) 12/08/21 04:09 Potassium 4.7 mmol/L (3.6-5.0) D 12/08/21 13:33 Chloride 108.5 mmol/L (98-107) H 12/08/21 04:09 Carbon Dioxide 24 mmol/L (22-30) 12/08/21 04:09 Anion Gap 11 mmol/L 12/08/21 04:09 BUN 6 mg/dL (7-17) L 12/08/21 04:09 Creatinine 0.5 mg/dL (0.6-1.2) L 12/08/21 04:09 Estimated GFR > 60 ml/min 12/08/21 04:09 BUN/Creatinine Ratio 12 % 12/08/21 04:09 Glucose 83 mg/dL (65-100) 12/08/21 04:09 Lactic Acid 1.20 mmol/L (0.7-2.0) 11/30/21 17:23 Calcium 7.7 mg/dL (8.4-10.2) L 12/08/21 04:09 Phosphorus 3.20 mg/dL (2.5-4.5) 12/05/21 13:43 Magnesium 1.80 mg/dL (1.7-2.3) 12/03/21 04:24 Total Bilirubin 0.30 mg/dL (0.1-1.2) 12/06/21 07:15 AST 14 units/L (5-40) 12/06/21 07:15 ALT 6 units/L (7-56) L 12/06/21 07:15 Alkaline Phosphatase 87 units/L (35-129) 12/06/21 07:15 Troponin T 0.119 ng/mL (0.00-0.029) H* 11/30/21 15:56 Total Protein 4.3 g/dL (6.3-8.2) L 12/06/21 07:15 Albumin 1.6 g/dL (3.9-5) L 12/06/21 07:15 Albumin/Globulin Ratio 0.6 % 12/06/21 07:15 Triglycerides 108 mg/dL (2-149) 11/30/21 15:56 Cholesterol 82 mg/dL (50-199) 11/30/21 15:56 LDL Cholesterol Direct 38 mg/dL (50-130) L 11/30/21 15:56 HDL Cholesterol 28 mg/dL (40-59) L 11/30/21 15:56 Cholesterol/HDL Ratio 2.92 % 11/30/21 15:56 TSH 1.870 mlU/mL (0.270-4.200) 11/30/21 15:57 Urine Color Yellow (Yellow) 11/30/21 02:50 Urine Turbidity Clear (Clear) 11/30/21 02:50 Urine pH 6.0 (5.0-7.0) 11/30/21 02:50 Ur Specific [place] 1.005 (1.003-1.030) 11/30/21 02:50 Urine Protein <15 mg/dl mg/dL (Negative) 11/30/21 02:50 Urine Glucose (UA) Neg mg/dL (Negative) 11/30/21 02:50 Urine Ketones Neg mg/dL (Negative) 11/30/21 02:50 Urine Blood Sm (Negative) 11/30/21 02:50 Urine Nitrite Neg (Negative) 11/30/21 02:50 Urine Bilirubin Neg (Negative) 11/30/21 02:50 Urine Urobilinogen < 2.0 mg/dL (<2.0) 11/30/21 02:50 Ur Leukocyte Esterase Neg (Negative) 11/30/21 02:50 Urine WBC (Auto) 2.0 /HPF (0.0-6.0) 11/30/21 02:50 Urine RBC (Auto) 2.0 /HPF (0.0-6.0) 11/30/21 02:50 U Epithel Cells (Auto) 1.0 /HPF (0-13.0) 11/30/21 02:50 Urine Bacteria (Auto) 1+ /HPF (Negative) 11/30/21 02:50 Urine Yeast (Budding) 1+ /HPF 11/30/21 02:50 Vancomycin Trough 24.7 ug/mL (5.0-20.0) H 12/06/21 21:31 Blood Type O POSITIVE 12/03/21 14:07 Antibody Screen Negative 12/03/21 14:07 Crossmatch See Detail 12/03/21 14:07 Microbiology: Microbiology 12/04/21 Unknown Other (Please Specify:) - Wound Surgical Culture - Preliminary Klebsiella Pneumoniae Gram Negative Edis Staphylococcus Aureus 12/04/21 17:46 Thigh - Left Surgical Culture - Preliminary Gram Negative Edis 11/30/21 15:56 Peripheral/Venous Blood Culture - Preliminary 12/05/21 13:43 Peripheral/Venous Blood Culture - Preliminary NO GROWTH AFTER 48 HOURS 12/05/21 13:49 Peripheral/Venous Blood Culture - Preliminary NO GROWTH AFTER 48 HOURS Victor/IV: Voiding Method External Female Catheter Active Medications - Current Medications Current Medications: Generic Name Dose Route Start Last Admin Trade Name Freq PRN Reason Stop Dose Admin Acetaminophen 650 mg 11/30/21 19:24 12/04/21 22:58 Acetaminophen 325 Mg Tab PO 650 mg Q4H PRN Administration Pain MILD(1-3)/Fever >100.5/[id number] Apixaban 2.5 mg 12/05/21 10:00 12/08/21 10:52 Apixaban 2.5 Mg Tab PO 2.5 mg Q12HR SRAVAN Administration Protocol Aspirin 81 mg 12/04/21 14:00 12/08/21 10:51 Aspirin Ec 81 Mg Tab PO 81 mg QDAY SRAVAN Administration Cilostazol 50 mg 12/01/21 22:00 12/08/21 10:51 Cilostazol 100 Mg Tab PO 50 mg BID SRAVAN Administration Docusate Sodium 100 mg 12/01/21 22:00 12/08/21 10:51 Docusate Sodium 100 Mg Cap PO 100 mg BID SRAVAN Administration Gabapentin 100 mg 12/01/21 22:00 12/08/21 10:52 Gabapentin 100 Mg Cap PO 100 mg BID SRAVAN Administration Hydromorphone HCl 0.5 mg 12/01/21 10:42 12/08/21 08:54 Hydromorphone 1 Mg/1 Ml Inj IV 0.5 mg Q4H PRN Administration Pain , Severe (7-10) Cefepime HCl 2 gm in 100 mls @ 200 mls/hr 12/01/21 10:00 12/08/21 10:51 Cefepime/Ns 2 Gm/100 Ml IV 12/13/21 22:29 200 mls/hr Q12H SRAVAN Administration Protocol Vancomycin HCl 750 mg/ Sodium 265 mls @ 166.667 mls/hr 12/07/21 11:00 12/08/21 12:26 Chloride IV 166.667 mls/hr Q12H SRAVAN Administration Ondansetron HCl 4 mg 11/30/21 19:24 12/04/21 22:52 Ondansetron 4 Mg/2 Ml Inj IV 4 mg Q8H PRN Administration Nausea And Vomiting Oxycodone/Acetaminophen 2 tab 12/02/21 11:44 12/08/21 15:31 Oxycodone /Acetaminophen 5-325mg Tab PO 2 tab Q8H PRN Administration Pain, Moderate (4-6) Pantoprazole Sodium 40 mg 12/01/21 20:00 12/08/21 10:51 Pantoprazole 40 Mg Tab PO 40 mg QDAY SRAVAN Administration Sodium Chloride 10 ml 11/30/21 22:00 12/08/21 10:52 Sodium Chloride 0.9% 10 Ml Flush Syringe IV 10 ml BID SRAVAN Administration Sodium Chloride 10 ml 11/30/21 19:24 Sodium Chloride 0.9% 10 Ml Flush Syringe IV PRN PRN LINE FLUSH Trazodone HCl 100 mg 12/01/21 22:00 12/07/21 21:42 Trazodone 100 Mg Tab PO 100 mg QHS SRAVAN Administration Venlafaxine HCl 75 mg 12/01/21 20:00 12/08/21 10:54 Venlafaxine 75 Mg Tab PO 75 mg DAILY SRAVAN Administration Nutrition/Malnutrition Assess - Dietary Evaluation Nutrition/Malnutrition Findings: Nutrition Notes Start: 12/05/21 15:54 Freq: Status: Active Protocol: Document 12/06/21 14:55 MERARI (Rec: 12/06/21 15:04 MERARI [id number]) Nutrition Notes Initial or Follow up Brief Note Current Diagnosis Acute Kidney Injury,Sepsis, Malnutrition Other Pertinent Diagnosis Metabolic Encephalopathy, PAD s/p Revascularization, PVD, L- LE Ischemia, .. Current Diet Regular Diet + D Suppl (since B 12/05). Height 5 ft 3 in Weight 47.3 kg [place] Body Weight (kg) 52.27 BMI 18.4 Weight change and time frame No body weight change reported in 1 day. Weight Status Underweight Subjective/Other Information RD consult for malnutrition assessment. No reports available on Pt's PO intake of meals at the time , will assess at F/U. Pt is on Room Air, O2 saturation @ 98%, according to Physical Assessmenty History notes. Percent of energy/protein needs met: Prescribed Regular Diet provides for energy/protein needs (2,289 Kcal/89 g) during LOS; additionally, Dietary Supplements will compensate for possible poor or insufficient PO intake of meals, and sopport wound healing processes with 320 Kcal and 32 g of protein. 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 Diagnosis Progress(for reassessment Continues documentation) #1 Nutrition Diagnosis Malnutrition,Underweight Diagnosis Progress(for reassessment Continues documentation) Is patient on ventilator? No Is Patient Ambulatory and/or Out of Bed Yes REE-([place]-St. Jeor-ambulatory/OOB) [ 1328.769 [id number]] Calculation Used for Recommendations [place] Jeor Additional Notes Protein: 1.25-1.5 g/Kg ABW; 59 -71 g/day. Fluids: 1 ml/Kcal, or as per MD. Nutrition Intervention Change Diet Order: Continue Regular Diet. Add Supplement/Snack (indicate name/kcal Start 8 fl oz Ensure High /protein ) Protein; BID. Provides kCal: 320 Provides Protein (gm) 32 Goal #1 Support, through dietary supplementation, wound healing processes during LOS. Goal #2 Compensate, through dietary supplementation, for possible poor or insufficient PO intake of meals during LOS. Follow-Up By: 12/12/21 Additional Comments Continue monitoring food tolerance, %PO intake of meals and ONS, and BM. <ARNOLD WELCH - Last Filed: 12/09/21 07:29> Assessment and Plan Assessment and plan: I saw and evaluated the patient. I agree with the findings and the plan of care as documented in the Nurse Practitioner's~note, with the following corrections and additions. Hospitalist Physical - Constitutional Vitals: Temp Pulse Resp BP Pulse Ox 98.2 F 71 8 L 150/66 99 12/09/21 04:13 12/09/21 07:00 12/09/21 07:00 12/09/21 07:00 12/09/21 07:00 HEART Score - HEART Score Troponin: Troponin T 0.119 ng/mL (0.00-0.029) H* 11/30/21 15:56 Results - Labs CBC & Chem 7: 12/08/21 04:09 12/09/21 04:51 Labs: Laboratory Last Values WBC 8.6 K/mm3 (4.5-11.0) 12/08/21 04:09 RBC 2.95 M/mm3 (3.65-5.03) L 12/08/21 04:09 Hgb 7.9 gm/dl (10.1-14.3) L 12/08/21 04:09 Hct 24.1 % (30.3-42.9) L 12/08/21 04:09 MCV 82 fl (79-97) 12/08/21 04:09 MCH 27 pg (28-32) L 12/08/21 04:09 MCHC 33 % (30-34) 12/08/21 04:09 RDW 18.6 % (13.2-15.2) H 12/08/21 04:09 Plt Count 406 K/mm3 (140-440) 12/08/21 04:09 Lymph % (Auto) 13.6 % (13.4-35.0) 12/06/21 07:15 [place] % (Auto) 10.0 % (0.0-7.3) H 12/06/21 07:15 Eos % (Auto) 4.7 % (0.0-4.3) H 12/06/21 07:15 Baso % (Auto) 1.2 % (0.0-1.8) 12/06/21 07:15 Lymph # (Auto) 1.2 K/mm3 (1.2-5.4) 12/06/21 07:15 [place] # (Auto) 0.9 K/mm3 (0.0-0.8) H 12/06/21 07:15 Eos # (Auto) 0.4 K/mm3 (0.0-0.4) 12/06/21 07:15 Baso # (Auto) 0.1 K/mm3 (0.0-0.1) 12/06/21 07:15 Add Manual Diff Complete 12/01/21 04:33 Total Counted 100 12/01/21 04:33 Seg Neutrophils % 70.5 % (40.0-70.0) H 12/06/21 07:15 Seg Neuts % (Manual) 82.0 % (40.0-70.0) H 12/01/21 04:33 Band Neutrophils % 8.0 % 12/01/21 04:33 Lymphocytes % (Manual) 5.0 % (13.4-35.0) L 12/01/21 04:33 Reactive Lymphs % (Man) 0 % 12/01/21 04:33 Monocytes % (Manual) 4.0 % (0.0-7.3) 12/01/21 04:33 Eosinophils % (Manual) 0 % (0.0-4.3) 12/01/21 04:33 Basophils % (Manual) 0 % (0.0-1.8) 12/01/21 04:33 Metamyelocytes % 1.0 % 12/01/21 04:33 Myelocytes % 0 % 12/01/21 04:33 Promyelocytes % 0 % 12/01/21 04:33 Blast Cells % 0 % 12/01/21 04:33 Nucleated RBC % Not Reportable 12/01/21 04:33 Seg Neutrophils # 6.5 K/mm3 (1.8-7.7) 12/06/21 07:15 Seg Neutrophils # Man 17.0 K/mm3 (1.8-7.7) H 12/01/21 04:33 Band Neutrophils # 1.7 K/mm3 12/01/21 04:33 Lymphocytes # (Manual) 1.0 K/mm3 (1.2-5.4) L 12/01/21 04:33 Abs React Lymphs (Man) 0.0 K/mm3 12/01/21 04:33 Monocytes # (Manual) 0.8 K/mm3 (0.0-0.8) 12/01/21 04:33 Eosinophils # (Manual) 0.0 K/mm3 (0.0-0.4) 12/01/21 04:33 Basophils # (Manual) 0.0 K/mm3 (0.0-0.1) 12/01/21 04:33 Metamyelocytes # 0.2 K/mm3 12/01/21 04:33 Myelocytes # 0.0 K/mm3 12/01/21 04:33 Promyelocytes # 0.0 K/mm3 12/01/21 04:33 Blast Cells # 0.0 K/mm3 12/01/21 04:33 WBC Morphology Not Reportable 12/01/21 04:33 Hypersegmented Neuts Not Reportable 12/01/21 04:33 Hyposegmented Neuts Not Reportable 12/01/21 04:33 Hypogranular Neuts Not Reportable 12/01/21 04:33 Smudge Cells Not Reportable 12/01/21 04:33 Toxic Granulation Not Reportable 12/01/21 04:33 Toxic Vacuolation Not Reportable 12/01/21 04:33 Dohle Bodies Not Reportable 12/01/21 04:33 Pelger-Huet Anomaly Not Reportable 12/01/21 04:33 Mary Rods Not Reportable 12/01/21 04:33 Platelet Estimate Consistent w auto 12/01/21 04:33 Clumped Platelets Not Reportable 12/01/21 04:33 Plt Clumps, EDTA Not Reportable 12/01/21 04:33 Large Platelets Not Reportable 12/01/21 04:33 Giant Platelets Not Reportable 12/01/21 04:33 Platelet Satelliting Not Reportable 12/01/21 04:33 Plt Morphology Comment Not Reportable 12/01/21 04:33 RBC Morphology Not Reportable 12/01/21 04:33 Dimorphic RBCs Not Reportable 12/01/21 04:33 Polychromasia Not Reportable 12/01/21 04:33 Hypochromasia 2+ 12/01/21 04:33 Poikilocytosis Few 12/01/21 04:33 Anisocytosis 1+ 12/01/21 04:33 Microcytosis 1+ 12/01/21 04:33 Macrocytosis Not Reportable 12/01/21 04:33 Spherocytes Not Reportable 12/01/21 04:33 Pappenheimer Bodies Not Reportable 12/01/21 04:33 Sickle Cells Not Reportable 12/01/21 04:33 Target Cells Not Reportable 12/01/21 04:33 Tear Drop Cells Not Reportable 12/01/21 04:33 Ovalocytes Few 12/01/21 04:33 Helmet Cells Not Reportable 12/01/21 04:33 Ybarra-[place] Bodies Not Reportable 12/01/21 04:33 [place] Rings Not Reportable 12/01/21 04:33 [place] Cells Not Reportable 12/01/21 04:33 Bite Cells Not Reportable 12/01/21 04:33 Crenated Cell Not Reportable 12/01/21 04:33 Elliptocytes Rare 12/01/21 04:33 Acanthocytes (Spur) Not Reportable 12/01/21 04:33 Rouleaux Not Reportable 12/01/21 04:33 Hemoglobin C Crystals Not Reportable 12/01/21 04:33 Schistocytes Not Reportable 12/01/21 04:33 Malaria parasites Not Reportable 12/01/21 04:33 Kvng Bodies Not Reportable 12/01/21 04:33 Hem Pathologist Commnt No 12/01/21 04:33 PT 14.9 Sec. (12.2-14.9) 12/04/21 04:35 INR 1.05 (0.87-1.13) 12/04/21 04:35 APTT 43.1 Sec. (24.2-36.6) H 11/30/21 15:56 VBG pH 7.509 (7.320-7.420) H 11/30/21 15:57 Sodium 139 mmol/L (137-145) 12/09/21 04:51 Potassium 3.7 mmol/L (3.6-5.0) D 12/09/21 04:51 Chloride 104.9 mmol/L (98-107) 12/09/21 04:51 Carbon Dioxide 27 mmol/L (22-30) 12/09/21 04:51 Anion Gap 11 mmol/L 12/09/21 04:51 BUN 7 mg/dL (7-17) 12/09/21 04:51 Creatinine 0.5 mg/dL (0.6-1.2) L 12/09/21 04:51 Estimated GFR > 60 ml/min 12/09/21 04:51 BUN/Creatinine Ratio 14 % 12/09/21 04:51 Glucose 91 mg/dL (65-100) 12/09/21 04:51 Lactic Acid 1.20 mmol/L (0.7-2.0) 11/30/21 17:23 Calcium 7.6 mg/dL (8.4-10.2) L 12/09/21 04:51 Phosphorus 3.20 mg/dL (2.5-4.5) 12/05/21 13:43 Magnesium 1.80 mg/dL (1.7-2.3) 12/03/21 04:24 Total Bilirubin 0.30 mg/dL (0.1-1.2) 12/06/21 07:15 AST 14 units/L (5-40) 12/06/21 07:15 ALT 6 units/L (7-56) L 12/06/21 07:15 Alkaline Phosphatase 87 units/L (35-129) 12/06/21 07:15 Troponin T 0.119 ng/mL (0.00-0.029) H* 11/30/21 15:56 Total Protein 4.3 g/dL (6.3-8.2) L 12/06/21 07:15 Albumin 1.6 g/dL (3.9-5) L 12/06/21 07:15 Albumin/Globulin Ratio 0.6 % 12/06/21 07:15 Triglycerides 108 mg/dL (2-149) 11/30/21 15:56 Cholesterol 82 mg/dL (50-199) 11/30/21 15:56 LDL Cholesterol Direct 38 mg/dL (50-130) L 11/30/21 15:56 HDL Cholesterol 28 mg/dL (40-59) L 11/30/21 15:56 Cholesterol/HDL Ratio 2.92 % 11/30/21 15:56 TSH 1.870 mlU/mL (0.270-4.200) 11/30/21 15:57 Urine Color Yellow (Yellow) 11/30/21 02:50 Urine Turbidity Clear (Clear) 11/30/21 02:50 Urine pH 6.0 (5.0-7.0) 11/30/21 02:50 Ur Specific [place] 1.005 (1.003-1.030) 11/30/21 02:50 Urine Protein <15 mg/dl mg/dL (Negative) 11/30/21 02:50 Urine Glucose (UA) Neg mg/dL (Negative) 11/30/21 02:50 Urine Ketones Neg mg/dL (Negative) 11/30/21 02:50 Urine Blood Sm (Negative) 11/30/21 02:50 Urine Nitrite Neg (Negative) 11/30/21 02:50 Urine Bilirubin Neg (Negative) 11/30/21 02:50 Urine Urobilinogen < 2.0 mg/dL (<2.0) 11/30/21 02:50 Ur Leukocyte Esterase Neg (Negative) 11/30/21 02:50 Urine WBC (Auto) 2.0 /HPF (0.0-6.0) 11/30/21 02:50 Urine RBC (Auto) 2.0 /HPF (0.0-6.0) 11/30/21 02:50 U Epithel Cells (Auto) 1.0 /HPF (0-13.0) 11/30/21 02:50 Urine Bacteria (Auto) 1+ /HPF (Negative) 11/30/21 02:50 Urine Yeast (Budding) 1+ /HPF 11/30/21 02:50 Vancomycin Trough 24.7 ug/mL (5.0-20.0) H 12/06/21 21:31 Blood Type O POSITIVE 12/03/21 14:07 Antibody Screen Negative 12/03/21 14:07 Crossmatch See Detail 12/03/21 14:07 Microbiology: Microbiology 12/05/21 13:43 Peripheral/Venous Blood Culture - Preliminary NO GROWTH AFTER 72 HOURS 12/05/21 13:49 Peripheral/Venous Blood Culture - Preliminary NO GROWTH AFTER 72 HOURS 12/04/21 17:46 Thigh - Left Anaerobic Culture - Preliminary 12/04/21 Unknown Other (Please Specify:) - Wound Anaerobic Culture - Final 12/04/21 Unknown Other (Please Specify:) - Wound Surgical Culture - Preliminary Klebsiella Pneumoniae Gram Negative Edis Staphylococcus Aureus 12/04/21 17:46 Thigh - Left Surgical Culture - Preliminary Gram Negative Edis 11/30/21 15:56 Peripheral/Venous Blood Culture - Preliminary Victor/IV: Voiding Method External Female Catheter Active Medications - Current Medications Current Medications: Generic Name Dose Route Start Last Admin Trade Name Freq PRN Reason Stop Dose Admin Acetaminophen 650 mg 11/30/21 19:24 12/04/21 22:58 Acetaminophen 325 Mg Tab PO 650 mg Q4H PRN Administration Pain MILD(1-3)/Fever >100.5/GONZALEZ Apixaban 2.5 mg 12/05/21 10:00 12/08/21 22:12 Apixaban 2.5 Mg Tab PO 2.5 mg Q12HR SRAVAN Administration Protocol Aspirin 81 mg 12/04/21 14:00 12/08/21 10:51 Aspirin Ec 81 Mg Tab PO 81 mg QDAY SRAVAN Administration Cilostazol 50 mg 12/01/21 22:00 12/08/21 22:11 Cilostazol 100 Mg Tab PO 50 mg BID SRAVAN Administration Docusate Sodium 100 mg 12/01/21 22:00 12/08/21 22:12 Docusate Sodium 100 Mg Cap PO 100 mg BID SRAVAN Administration Gabapentin 100 mg 12/01/21 22:00 12/08/21 22:12 Gabapentin 100 Mg Cap PO 100 mg BID SRAVAN Administration Hydromorphone HCl 0.5 mg 12/01/21 10:42 12/09/21 05:00 Hydromorphone 1 Mg/1 Ml Inj IV 0.5 mg Q4H PRN Administration Pain , Severe (7-10) Cefepime HCl 2 gm in 100 mls @ 200 mls/hr 12/01/21 10:00 12/08/21 22:07 Cefepime/Ns 2 Gm/100 Ml IV 12/13/21 22:29 200 mls/hr Q12H SRAVAN Administration Protocol Vancomycin HCl 750 mg/ Sodium 265 mls @ 166.667 mls/hr 12/07/21 11:00 12/08/21 22:09 Chloride IV 166.667 mls/hr Q12H SRAVAN Administration Ondansetron HCl 4 mg 11/30/21 19:24 12/04/21 22:52 Ondansetron 4 Mg/2 Ml Inj IV 4 mg Q8H PRN Administration Nausea And Vomiting Oxycodone/Acetaminophen 2 tab 12/02/21 11:44 12/09/21 00:31 Oxycodone /Acetaminophen 5-325mg Tab PO 2 tab Q8H PRN Administration Pain, Moderate (4-6) Pantoprazole Sodium 40 mg 12/01/21 20:00 12/08/21 10:51 Pantoprazole 40 Mg Tab PO 40 mg QDAY SRAVAN Administration Sodium Chloride 10 ml 11/30/21 22:00 12/08/21 22:13 Sodium Chloride 0.9% 10 Ml Flush Syringe IV 10 ml BID SRAVAN Administration Sodium Chloride 10 ml 11/30/21 19:24 12/09/21 05:02 Sodium Chloride 0.9% 10 Ml Flush Syringe IV 10 ml PRN PRN Administration LINE FLUSH Trazodone HCl 100 mg 12/01/21 22:00 12/08/21 22:12 Trazodone 100 Mg Tab PO 100 mg QHS SRAVAN Administration Venlafaxine HCl 75 mg 12/01/21 20:00 12/08/21 10:54 Venlafaxine 75 Mg Tab PO 75 mg DAILY SRAVAN Administration Nutrition/Malnutrition Assess - Dietary Evaluation Nutrition/Malnutrition Findings: Nutrition Notes Start: 12/05/21 15:54 Freq: Status: Active Protocol: Document 12/06/21 14:55 MERARI (Rec: 12/06/21 15:04 MERARI [id number]) Nutrition Notes Initial or Follow up Brief Note Current Diagnosis Acute Kidney Injury,Sepsis, Malnutrition Other Pertinent Diagnosis Metabolic Encephalopathy, PAD s/p Revascularization, PVD, L- LE Ischemia, .. Current Diet Regular Diet + D Suppl (since B 12/05). Height 5 ft 3 in Weight 47.3 kg [place] Body Weight (kg) 52.27 BMI 18.4 Weight change and time frame No body weight change reported in 1 day. Weight Status Underweight Subjective/Other Information RD consult for malnutrition assessment. No reports available on Pt's PO intake of meals at the time , will assess at F/U. Pt is on Room Air, O2 saturation @ 98%, according to Physical Assessmenty History notes. Percent of energy/protein needs met: Prescribed Regular Diet provides for energy/protein needs (2,289 Kcal/89 g) during LOS; additionally, Dietary Supplements will compensate for possible poor or insufficient PO intake of meals, and sopport wound healing processes with 320 Kcal and 32 g of protein. 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 Diagnosis Progress(for reassessment Continues documentation) #1 Nutrition Diagnosis Malnutrition,Underweight Diagnosis Progress(for reassessment Continues documentation) Is patient on ventilator? No Is Patient Ambulatory and/or Out of Bed Yes REE-([facility]-ambulatory/OOB) [ 1328.769 [id number]] Calculation Used for Recommendations [facility] Additional Notes Protein: 1.25-1.5 g/Kg ABW; 59 -71 g/day. Fluids: 1 ml/Kcal, or as per MD. Nutrition Intervention Change Diet Order: Continue Regular Diet. Add Supplement/Snack (indicate name/kcal Start 8 fl oz Ensure High /protein ) Protein; BID. Provides kCal: 320 Provides Protein (gm) 32 Goal #1 Support, through dietary supplementation, wound healing processes during LOS. Goal #2 Compensate, through dietary supplementation, for possible poor or insufficient PO intake of meals during LOS. Follow-Up By: 12/12/21 Additional Comments Continue monitoring food tolerance, %PO intake of meals and ONS, and BM.
--- NOTE | 2021-12-08 16:57 | Progress Note ---
Assessment and Plan Cultures: 11/30/2021 blood culture: In process Wound culture: GNR A/P: 56/F with peripheral vascular disease, tobacco abuse, peripheral neuropathy, prior CVA, recent admission for critical limb ischemia of LLE requiring L [employer] to popliteal bypass complicated by compartment syndrome requiring 4 compartment fasciotomy, woundVAC in groin region was discharged to rehab and sent home about 2 days prior to admission was admitted this time with AMS and weakness: #Septic shock: Chest x-ray without pneumonia, UA without any pyuria. Source could be wound infection causing a transient bacteremia. Follow-up blood cultures. #Peripheral vascular disease, recent revascularization of LLE, compartment syndrome requiring fasciotomy #Acute anemia #SUSANA: Creatinine improving. Recs: Continue empiric cefepime, vancomycin Okay to discharge with Levaquin 750 mg every 24 hours to complete 7 further days Discussed with Dr. Erick Blake MD [facility] O: [phone] F: [phone] Subjective Date of service: 12/08/21 Principal diagnosis: PVD with infected graft Interval history: Afebrile, normal white count. Objective - Exam Narrative Exam: Physical Exam: Constitutional: Alert, cooperative. No acute distress Head, Ears, Nose: Normocephalic, atraumatic. Eyes: Conjunctivae/corneas clear. No icterus. No ptosis. Neck: Supple, no meningeal signs Cardiovascular: S1, S2 + Respiratory: Good air entry, clear to auscultation bilaterally GI: Soft, non-tender; bowel sounds normal. No peritoneal signs Musculoskeletal: LLE with dressing, left groin with wound VAC Skin: No rash or abscess Hem/Lymphatic: No palpable cervical or supraclavicular nodes. No lymphangitis Psych: Mood ok. Affect normal Neurological: Awake, alert, oriented. No gross abnormality - Constitutional Vitals: Vital Signs Temp Pulse Resp BP Pulse Ox 98.8 F 98 H 21 154/84 99 12/08/21 16:00 12/08/21 15:00 12/08/21 15:00 12/08/21 15:00 12/08/21 15:00 Temperature -Last 24 Hours Temperature 98.8 F Temperature 98.9 F Temperature 99.1 F Temperature 97.3 F Temperature 97.4 F - Labs CBC & Chem 7: 12/08/21 04:09 12/08/21 13:33 Labs: Abnormal lab results 12/03/21 12/08/21 12/08/21 Range/Units 14:07 04:09 04:09 RBC 2.95 L (3.65-5.03) M/mm3 Hgb 7.9 L (10.1-14.3) gm/dl Hct 24.1 L (30.3-42.9) % MCH 27 L (28-32) pg RDW 18.6 H (13.2-15.2) % Potassium 3.1 L D (3.6-5.0) mmol/L Chloride 108.5 H (98-107) mmol/L BUN 6 L (7-17) mg/dL Creatinine 0.5 L (0.6-1.2) mg/dL Calcium 7.7 L (8.4-10.2) mg/dL Crossmatch See Detail
[2021-12-08] MEDS: traZODone 100 MG TAB PO SCH (22:12)
[2021-12-09] MEDS: oxyCODONE /ACETAMINOPHEN 5-325MG TAB PO PRN ×2 (00:31→16:23)
[2021-12-09] MEDS: HYDROmorphone 1 MG/1 ML INJ IV PRN ×3 (05:00→22:30)
[2021-12-09 05:49] LABS: BUN/Creatinine Ratio 14; Blood Urea Nitrogen 7 mg/dL (7-17); Calcium 7.6 mg/dL (8.4-10.2); Hemolysis Index 8
--- NOTE | 2021-12-09 10:05 | Progress Note ---
Assessment and Plan Patient was supposed to have her wound VAC on the middle and lower surgical sites placed on , wound nurse did not have appropriate supplies but noted that she would return on Saturday. This did not happen. [facility] is bringing by a canister today for the patient's home wound VAC. Hopefully, they will bring enough supplies to place wound vacs. However, would anticipate that the patient may continue her hospitalization until Saturday. Subjective Date of service: 12/09/21 Principal diagnosis: PVD with infected graft Interval history: Patient resting comfortably in bed. Her foot is warm and perfused with faintly palpable pulses. Patient with reperfusion edema. Wet-to-dry dressing changes on the inferior and middle surgical sites, wound VAC in the groin. Objective - Constitutional Vitals: Vital Signs - 12hr 12/08/21 12/08/21 12/09/21 22:05 23:00 00:00 Temperature Pulse Rate 84 78 82 Respiratory 16 10 L 14 Rate Blood Pressure 149/69 132/58 135/67 O2 Sat by Pulse 98 98 97 Oximetry 12/09/21 12/09/21 12/09/21 00:31 00:35 00:36 Temperature 98.2 F Pulse Rate 82 Respiratory 13 18 Rate Blood Pressure O2 Sat by Pulse 98 Oximetry 12/09/21 12/09/21 12/09/21 01:00 01:31 02:00 Temperature Pulse Rate 79 83 Respiratory 10 L 18 9 L Rate Blood Pressure 150/67 142/62 O2 Sat by Pulse 97 95 Oximetry 12/09/21 12/09/21 12/09/21 02:30 03:00 04:00 Temperature Pulse Rate 83 79 79 Respiratory 18 9 L 7 L Rate Blood Pressure 132/64 124/57 O2 Sat by Pulse 98 93 95 Oximetry 12/09/21 12/09/21 12/09/21 04:13 05:00 05:30 Temperature 98.2 F Pulse Rate 79 79 Respiratory 18 14 18 Rate Blood Pressure 139/72 O2 Sat by Pulse 98 97 Oximetry 12/09/21 12/09/21 12/09/21 06:00 07:00 08:26 Temperature Pulse Rate 74 71 Respiratory 10 L 8 L Rate Blood Pressure 150/75 150/66 O2 Sat by Pulse 98 99 99 Oximetry General appearance: Present: no acute distress - EENT Eyes: EOM intact ENT: hearing intact - Neck Neck: supple, normal ROM - Respiratory Respiratory effort: normal Extremities: abnormal - Gastrointestinal General gastrointestinal: Present: deferred Rectal Exam: deferred - Genitourinary Female genitourinary: deferred - Psychiatric Psychiatric: cooperative - Labs CBC & Chem 7: 12/08/21 04:09 12/09/21 04:51 Labs: Abnormal lab results 12/03/21 12/09/21 Range/Units 14:07 04:51 Creatinine 0.5 L (0.6-1.2) mg/dL Calcium 7.6 L (8.4-10.2) mg/dL Crossmatch See Detail Medications & Allergies - Medications Allergies/Adverse Reactions: Allergies No Known Allergies Allergy (Verified 10/20/21 09:17) Home Medications: Home Medications Medication Instructions Recorded Confirmed Last Taken Type Apixaban [Eliquis] 2.5 mg PO Q12HR #60 tab 09/01/21 12/04/21 Unknown Rx AtorvaSTATin [Lipitor] 40 mg PO DAILY 09/01/21 12/04/21 08/31/21 History 1 tab Clopidogrel [Plavix] 75 mg PO QDAY #90 tablet 09/01/21 12/04/21 Unknown Rx Gabapentin 100 mg PO BID 09/01/21 12/04/21 08/31/21 History 2 tabs Pantoprazole [Protonix] 40 mg PO QDAY #90 tablet 09/01/21 12/04/21 Unknown Rx amLODIPine 5 mg PO DAILY 09/01/21 12/04/21 08/31/21 History 1 tab carvediloL [Coreg] 25 mg PO BID 09/01/21 12/04/21 08/31/21 History 2 tabs cilostazoL [Pletal] 50 mg PO BID 09/01/21 12/04/21 08/31/21 History 2 tabs traZODone [Desyrel] 100 mg PO QHS 09/01/21 12/04/21 08/31/21 History 1 tab Venlafaxine [Effexor] 75 mg PO DAILY 11/02/21 12/04/21 Unknown History Active Medications: Generic Name Dose Route Start Last Admin Trade Name Freq PRN Reason Stop Dose Admin Acetaminophen 650 mg 11/30/21 19:24 12/04/21 22:58 Acetaminophen 325 Mg Tab PO 650 mg Q4H PRN Administration Pain MILD(1-3)/Fever >100.5/GONZALEZ Apixaban 2.5 mg 12/05/21 10:00 12/08/21 22:12 Apixaban 2.5 Mg Tab PO 2.5 mg Q12HR SRAVAN Administration Protocol Aspirin 81 mg 12/04/21 14:00 12/08/21 10:51 Aspirin Ec 81 Mg Tab PO 81 mg QDAY SRAVAN Administration Cilostazol 50 mg 12/01/21 22:00 12/08/21 22:11 Cilostazol 100 Mg Tab PO 50 mg BID SRAVAN Administration Docusate Sodium 100 mg 12/01/21 22:00 12/08/21 22:12 Docusate Sodium 100 Mg Cap PO 100 mg BID SRAVAN Administration Gabapentin 100 mg 12/01/21 22:00 12/08/21 22:12 Gabapentin 100 Mg Cap PO 100 mg BID SRAVAN Administration Hydromorphone HCl 0.5 mg 12/01/21 10:42 12/09/21 05:00 Hydromorphone 1 Mg/1 Ml Inj IV 0.5 mg Q4H PRN Administration Pain , Severe (7-10) Cefepime HCl 2 gm in 100 mls @ 200 mls/hr 12/01/21 10:00 12/08/21 22:07 Cefepime/Ns 2 Gm/100 Ml IV 12/13/21 22:29 200 mls/hr Q12H SRAVAN Administration Protocol Vancomycin HCl 750 mg/ Sodium 265 mls @ 166.667 mls/hr 12/07/21 11:00 12/08/21 22:09 Chloride IV 166.667 mls/hr Q12H SRAVAN Administration Ondansetron HCl 4 mg 11/30/21 19:24 12/04/21 22:52 Ondansetron 4 Mg/2 Ml Inj IV 4 mg Q8H PRN Administration Nausea And Vomiting Oxycodone/Acetaminophen 2 tab 12/02/21 11:44 12/09/21 00:31 Oxycodone /Acetaminophen 5-325mg Tab PO 2 tab Q8H PRN Administration Pain, Moderate (4-6) Pantoprazole Sodium 40 mg 12/01/21 20:00 12/08/21 10:51 Pantoprazole 40 Mg Tab PO 40 mg QDAY SRAVAN Administration Sodium Chloride 10 ml 11/30/21 22:00 12/08/21 22:13 Sodium Chloride 0.9% 10 Ml Flush Syringe IV 10 ml BID SRAVAN Administration Sodium Chloride 10 ml 11/30/21 19:24 12/09/21 05:02 Sodium Chloride 0.9% 10 Ml Flush Syringe IV 10 ml PRN PRN Administration LINE FLUSH Trazodone HCl 100 mg 12/01/21 22:00 12/08/21 22:12 Trazodone 100 Mg Tab PO 100 mg QHS SRAVAN Administration Venlafaxine HCl 75 mg 12/01/21 20:00 12/08/21 10:54 Venlafaxine 75 Mg Tab PO 75 mg DAILY SRAVAN Administration HEART Score - HEART Score Troponin: Troponin T 0.119 ng/mL (0.00-0.029) H* 11/30/21 15:56
[2021-12-09] MEDS: DOCUSATE SODIUM 100 MG CAP PO SCH ×2 (11:01→21:45)
[2021-12-09] MEDS: CILOSTAZOL 100 MG TAB PO SCH ×2 (11:02→21:45)
[2021-12-09] MEDS: CEFEPIME/NS 2 GM/100 ML 2 GM/100 ML BAG IV SCH ×2 (11:02→21:48)
[2021-12-09] MEDS: APIXABAN 2.5 MG TAB PO SCH ×2 (11:02→21:45)
[2021-12-09] MEDS: GABAPENTIN 100 MG CAP PO SCH ×2 (11:02→21:45)
[2021-12-09] MEDS: PANTOPRAZOLE 40 MG TAB PO SCH (11:02)
[2021-12-09] MEDS: VENLAFAXINE 75 MG TAB PO SCH (11:02)
[2021-12-09] MEDS: ASPIRIN EC 81 MG TAB PO SCH (11:05)
[2021-12-09] MEDS: VANCOMYCIN 750 MG in SODIUM CHLORIDE 0.9% 250ML 250 ML IV SCH (11:05)
--- NOTE | 2021-12-09 12:45 | Progress Note ---
<VINCENT KERNS - Last Filed: 12/09/21 16:37> Assessment and Plan Assessment and plan: This is a 56-year-old female with severe PVD, CAD, HTN, HLD, anemia, EtOH and tobacco abuse who is s/p left femoral to below the knee popliteal artery bypass complicated by compartment syndrome s/p fasciotomy and right leg revasculariz ation who was discharged to SNF after almost 3 week stay via EMS for altered mental status and was hypoentive in ED despite fluid resuscitation was eventually started on Levophed with a placement of central line. Patient was also anemic with a hemoglobin of 6.2 and 1 unit PRBC was transfused. She also had leukocytosis, acute kidney injury, elevated troponin and purulent drainage from wounds. Patient was admitted to the hospital service with consult to vascular surgery, ID and CCM with Sepsis. Hospital Course to Date: 12/01: Additional LR boluses, KCL 40 PO, prn diludid given for pain. Wean levophed as tolerated. 12/02: Adjustment to pain regimen, CTA pelvis and lower extremities with contrast obtained. Phosphorus and magnesium repleted 12/03: No vascular interventions till Saturday/Saturday. Pain better controlled. No acute events overnight. Transfer to [facility] 12/04: OR today for surgery by IR. Am labs ordered. 12/05/21-patient is seen at bedside. Patient alert and oriented. V/S stable. She is s/p excision of Infected Left Femoral to Below-Knee Popliteal Artery Bypass Graft-done 12/04/21. Wound VAC Placement left groin. patient reports pain left. Unable to feel left pedal pulse with doppler. patient's nurse at bedside at the time of assessment. I spoke to Dr Edge-vascular surgeon-he agreed to come and re-assess pt. 12/06: Remains afebrile and hemodynamicaly stable. Vascular surgery recommendations noted. Plan to discharge back to subacute rehab when okayed by ID, awaiting antibiotics recommendations. 12/07: RUTH overnight. Vascular Surg and ID recommendations noted. PT recommends subacute rehab, however patient refused subacute rehab and requested to go home with [facility]. Thorough discussion with patient at the bedside, discussing risks and potential worsening of condition without proper care and supervision, especially since she lives alone at home. Patient verbalized understanding of the info provided but still refused subacute rehab and was adamant to be discharge home. business systems lead to switch patient to a home wound VAC. Plan for possible discharge home tomorrow with [facility] and home wound care. Case management to arrange. 12/08: RUTH overnight. Awaiting home wound vac supplies, per case management supplies will be delivered tomorrow. Continue current supportive measures. Plan for possible discharge tomorrow once wound vac supplies is available and wound vac is bridge by channel cementer. 12/09: Still waiting on wound vac supplies and wound Vac bridge. Discharge postpone for possibly Saturday. D/w patient at the bedside. Continue current supportive care and physical therapy. Assessment and Plan: Septic shock (POA), leukocytosis(improved) -Presented with leukocytosis, acute kidney injury, purulent drainage from leg wounds -Infectious disease consulted, appreciate recommendations -Antibiotic therapy with cefepime and vancomycin -WOCN consulted for wound care -f/u blood culture -Monitor WBC and temperature curve -Per ID: Okay to discharge with Levaquin 750 mg every 24 hours to complete 7 further days Severe PVD s/p left femoral to below-knee popliteal artery bypass with fasci otomy, right lower extremity vascularization -Presented with Presented with leukocytosis, and purulent drainage from leg wounds -CTA BLE shows air within the left femoral to popliteal artery bypass graft as well as in fluid collections along the graft. 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 -LLE wound vac in placed, no s/s of any complications noted -Continue ASA,Eliquis, Pletal, and gabapentin -Vascular checks per protocol -Continue wound care per Vascular Surgery -Wound Care consulted Acute Anemia -Presented with low H&H, s/p 5units of PRBCs -H&H stable this am -Continue to monitor for signs of bleeding -Transfuse for hgb less than 7 Neuro: h/o CVA, Depression, EtOH abuse -Reorientation as needed -Maintain sleep-wake cycle -As needed analgesia -Resumed home meds Cardiac: Hypertension -Presented with hypotension most likelu due to sepsis required vasopressors -BP stable now -Continue Blood pressure monitoring per protocol -Maintain SBP less than 120 Nicotine Dependence -Per patient last cigarettes was a week ago -Smoking cessation education provided, patient voiced understanding and agreed with the info provided -Admit that quitting is hard and she still having urges, Nicotine patch ordered GI: Moderate Protein calorie malnutrition -Regular diet with nutritional supplementation -Nutrition consulted -BR: colace : Acute kidney injury secondary to vasomotor nephropathy, Hy pokalemia(resolved) -Renal function back to baseline -Monitor intake and output -Renally dose medications -Avoid nephrotoxic medications -Trend BMP GI/DVT Prophylaxis -PPI-Protonix -On Eliquis Advance Care Planning -Disease education data, care plan, diagnoses, and prognosis were discussed with patient at the bedside. Patient is full code. Patient acknowledged understanding and agreement with current care plan. -Plan to discharge back to subacute rehab when okayed by ID, awaiting antibiotics recommendations The high probability of a clinically significant, sudden or life threatening deterioration of the [multiple] system(s) required my full and direct attention, intervention and personal management. The aggregate critical care time was [60] minutes. This time is in addition to time spent performing reported procedures but includes the following: [x] Data Review and interpretation [x] Patient assessment and monitoring of vital signs [x] Documentation [x] Medication orders and management Disposition Plan: Transfer to the floor Total Time Spent with Patient (Minutes): 30 History Interval history: Patient seen and examined at the bedside. Remains stable on RA. LLE clean dressing with wound vac noted, no s/s of any complications appreciated. RUTH overnight Hospitalist Physical - Physical exam Narrative exam: General appearance: Present: no acute distress, cachectic - EENT Eyes: Present: PERRL, EOM intact ENT: hearing intact - Neck Neck: Present: normal ROM - Respiratory Respiratory effort: normal Respiratory: bilateral: diminished - Cardiovascular Rhythm: regular Heart Sounds: Present: S1 & S2 - Extremities Extremities: no ischemia, pulses intact, pulses symmetrical, abnormal (LLE clean and intact dressing with Wound vac. No complications noted) Extremity abnormal: edema - Peripheral Assessment Left Lower Extremity Edema Type: Pitting Edema Degree: 3+ Capillary Refill: < 3 seconds Skin Temperature: Warm Peripheral Pulses: abnormal (LLE pulses appreciated with a doppler) - Abdominal General gastrointestinal: soft, non-distended, normal bowel sounds - Integumentary Integumentary: Present: warm, dry - Psychiatric Psychiatric: appropriate mood/affect, cooperative - Neurologic Neurologic: moves all extremities (LLE with limited ROM) - Allied Health Allied health notes reviewed: nursing, case management - Constitutional Vitals: Temp Pulse Resp BP Pulse Ox 98.2 F 71 8 L 150/66 99 12/09/21 04:13 12/09/21 07:00 12/09/21 07:00 12/09/21 07:00 12/09/21 08:26 HEART Score - HEART Score Troponin: Troponin T 0.119 ng/mL (0.00-0.029) H* 11/30/21 15:56 Results - Labs CBC & Chem 7: 12/08/21 04:09 12/09/21 04:51 Labs: Laboratory Last Values WBC 8.6 K/mm3 (4.5-11.0) 12/08/21 04:09 RBC 2.95 M/mm3 (3.65-5.03) L 12/08/21 04:09 Hgb 7.9 gm/dl (10.1-14.3) L 12/08/21 04:09 Hct 24.1 % (30.3-42.9) L 12/08/21 04:09 MCV 82 fl (79-97) 12/08/21 04:09 MCH 27 pg (28-32) L 12/08/21 04:09 MCHC 33 % (30-34) 12/08/21 04:09 RDW 18.6 % (13.2-15.2) H 12/08/21 04:09 Plt Count 406 K/mm3 (140-440) 12/08/21 04:09 Lymph % (Auto) 13.6 % (13.4-35.0) 12/06/21 07:15 [place] % (Auto) 10.0 % (0.0-7.3) H 12/06/21 07:15 Eos % (Auto) 4.7 % (0.0-4.3) H 12/06/21 07:15 Baso % (Auto) 1.2 % (0.0-1.8) 12/06/21 07:15 Lymph # (Auto) 1.2 K/mm3 (1.2-5.4) 12/06/21 07:15 [place] # (Auto) 0.9 K/mm3 (0.0-0.8) H 12/06/21 07:15 Eos # (Auto) 0.4 K/mm3 (0.0-0.4) 12/06/21 07:15 Baso # (Auto) 0.1 K/mm3 (0.0-0.1) 12/06/21 07:15 Add Manual Diff Complete 12/01/21 04:33 Total Counted 100 12/01/21 04:33 Seg Neutrophils % 70.5 % (40.0-70.0) H 12/06/21 07:15 Seg Neuts % (Manual) 82.0 % (40.0-70.0) H 12/01/21 04:33 Band Neutrophils % 8.0 % 12/01/21 04:33 Lymphocytes % (Manual) 5.0 % (13.4-35.0) L 12/01/21 04:33 Reactive Lymphs % (Man) 0 % 12/01/21 04:33 Monocytes % (Manual) 4.0 % (0.0-7.3) 12/01/21 04:33 Eosinophils % (Manual) 0 % (0.0-4.3) 12/01/21 04:33 Basophils % (Manual) 0 % (0.0-1.8) 12/01/21 04:33 Metamyelocytes % 1.0 % 12/01/21 04:33 Myelocytes % 0 % 12/01/21 04:33 Promyelocytes % 0 % 12/01/21 04:33 Blast Cells % 0 % 12/01/21 04:33 Nucleated RBC % Not Reportable 12/01/21 04:33 Seg Neutrophils # 6.5 K/mm3 (1.8-7.7) 12/06/21 07:15 Seg Neutrophils # Man 17.0 K/mm3 (1.8-7.7) H 12/01/21 04:33 Band Neutrophils # 1.7 K/mm3 12/01/21 04:33 Lymphocytes # (Manual) 1.0 K/mm3 (1.2-5.4) L 12/01/21 04:33 Abs React Lymphs (Man) 0.0 K/mm3 12/01/21 04:33 Monocytes # (Manual) 0.8 K/mm3 (0.0-0.8) 12/01/21 04:33 Eosinophils # (Manual) 0.0 K/mm3 (0.0-0.4) 12/01/21 04:33 Basophils # (Manual) 0.0 K/mm3 (0.0-0.1) 12/01/21 04:33 Metamyelocytes # 0.2 K/mm3 12/01/21 04:33 Myelocytes # 0.0 K/mm3 12/01/21 04:33 Promyelocytes # 0.0 K/mm3 12/01/21 04:33 Blast Cells # 0.0 K/mm3 12/01/21 04:33 WBC Morphology Not Reportable 12/01/21 04:33 Hypersegmented Neuts Not Reportable 12/01/21 04:33 Hyposegmented Neuts Not Reportable 12/01/21 04:33 Hypogranular Neuts Not Reportable 12/01/21 04:33 Smudge Cells Not Reportable 12/01/21 04:33 Toxic Granulation Not Reportable 12/01/21 04:33 Toxic Vacuolation Not Reportable 12/01/21 04:33 Dohle Bodies Not Reportable 12/01/21 04:33 Pelger-Huet Anomaly Not Reportable 12/01/21 04:33 Mary Rods Not Reportable 12/01/21 04:33 Platelet Estimate Consistent w auto 12/01/21 04:33 Clumped Platelets Not Reportable 12/01/21 04:33 Plt Clumps, EDTA Not Reportable 12/01/21 04:33 Large Platelets Not Reportable 12/01/21 04:33 Giant Platelets Not Reportable 12/01/21 04:33 Platelet Satelliting Not Reportable 12/01/21 04:33 Plt Morphology Comment Not Reportable 12/01/21 04:33 RBC Morphology Not Reportable 12/01/21 04:33 Dimorphic RBCs Not Reportable 12/01/21 04:33 Polychromasia Not Reportable 12/01/21 04:33 Hypochromasia 2+ 12/01/21 04:33 Poikilocytosis Few 12/01/21 04:33 Anisocytosis 1+ 12/01/21 04:33 Microcytosis 1+ 12/01/21 04:33 Macrocytosis Not Reportable 12/01/21 04:33 Spherocytes Not Reportable 12/01/21 04:33 Pappenheimer Bodies Not Reportable 12/01/21 04:33 Sickle Cells Not Reportable 12/01/21 04:33 Target Cells Not Reportable 12/01/21 04:33 Tear Drop Cells Not Reportable 12/01/21 04:33 Ovalocytes Few 12/01/21 04:33 Helmet Cells Not Reportable 12/01/21 04:33 [place] Bodies Not Reportable 12/01/21 04:33 [place] Rings Not Reportable 12/01/21 04:33 [place] Cells Not Reportable 12/01/21 04:33 Bite Cells Not Reportable 12/01/21 04:33 Crenated Cell Not Reportable 12/01/21 04:33 Elliptocytes Rare 12/01/21 04:33 Acanthocytes (Spur) Not Reportable 12/01/21 04:33 Rouleaux Not Reportable 12/01/21 04:33 Hemoglobin C Crystals Not Reportable 12/01/21 04:33 Schistocytes Not Reportable 12/01/21 04:33 Malaria parasites Not Reportable 12/01/21 04:33 Kvng Bodies Not Reportable 12/01/21 04:33 Hem Pathologist Commnt No 12/01/21 04:33 PT 14.9 Sec. (12.2-14.9) 12/04/21 04:35 INR 1.05 (0.87-1.13) 12/04/21 04:35 APTT 43.1 Sec. (24.2-36.6) H 11/30/21 15:56 VBG pH 7.509 (7.320-7.420) H 11/30/21 15:57 Sodium 139 mmol/L (137-145) 12/09/21 04:51 Potassium 3.7 mmol/L (3.6-5.0) D 12/09/21 04:51 Chloride 104.9 mmol/L (98-107) 12/09/21 04:51 Carbon Dioxide 27 mmol/L (22-30) 12/09/21 04:51 Anion Gap 11 mmol/L 12/09/21 04:51 BUN 7 mg/dL (7-17) 12/09/21 04:51 Creatinine 0.5 mg/dL (0.6-1.2) L 12/09/21 04:51 Estimated GFR > 60 ml/min 12/09/21 04:51 BUN/Creatinine Ratio 14 % 12/09/21 04:51 Glucose 91 mg/dL (65-100) 12/09/21 04:51 Lactic Acid 1.20 mmol/L (0.7-2.0) 11/30/21 17:23 Calcium 7.6 mg/dL (8.4-10.2) L 12/09/21 04:51 Phosphorus 3.20 mg/dL (2.5-4.5) 12/05/21 13:43 Magnesium 1.80 mg/dL (1.7-2.3) 12/03/21 04:24 Total Bilirubin 0.30 mg/dL (0.1-1.2) 12/06/21 07:15 AST 14 units/L (5-40) 12/06/21 07:15 ALT 6 units/L (7-56) L 12/06/21 07:15 Alkaline Phosphatase 87 units/L (35-129) 12/06/21 07:15 Troponin T 0.119 ng/mL (0.00-0.029) H* 11/30/21 15:56 Total Protein 4.3 g/dL (6.3-8.2) L 12/06/21 07:15 Albumin 1.6 g/dL (3.9-5) L 12/06/21 07:15 Albumin/Globulin Ratio 0.6 % 12/06/21 07:15 Triglycerides 108 mg/dL (2-149) 11/30/21 15:56 Cholesterol 82 mg/dL (50-199) 11/30/21 15:56 LDL Cholesterol Direct 38 mg/dL (50-130) L 11/30/21 15:56 HDL Cholesterol 28 mg/dL (40-59) L 11/30/21 15:56 Cholesterol/HDL Ratio 2.92 % 11/30/21 15:56 TSH 1.870 mlU/mL (0.270-4.200) 11/30/21 15:57 Urine Color Yellow (Yellow) 11/30/21 02:50 Urine Turbidity Clear (Clear) 11/30/21 02:50 Urine pH 6.0 (5.0-7.0) 11/30/21 02:50 Ur Specific [place] 1.005 (1.003-1.030) 11/30/21 02:50 Urine Protein <15 mg/dl mg/dL (Negative) 11/30/21 02:50 Urine Glucose (UA) Neg mg/dL (Negative) 11/30/21 02:50 Urine Ketones Neg mg/dL (Negative) 11/30/21 02:50 Urine Blood Sm (Negative) 11/30/21 02:50 Urine Nitrite Neg (Negative) 11/30/21 02:50 Urine Bilirubin Neg (Negative) 11/30/21 02:50 Urine Urobilinogen < 2.0 mg/dL (<2.0) 11/30/21 02:50 Ur Leukocyte Esterase Neg (Negative) 11/30/21 02:50 Urine WBC (Auto) 2.0 /HPF (0.0-6.0) 11/30/21 02:50 Urine RBC (Auto) 2.0 /HPF (0.0-6.0) 11/30/21 02:50 U Epithel Cells (Auto) 1.0 /HPF (0-13.0) 11/30/21 02:50 Urine Bacteria (Auto) 1+ /HPF (Negative) 11/30/21 02:50 Urine Yeast (Budding) 1+ /HPF 11/30/21 02:50 Vancomycin Trough 24.7 ug/mL (5.0-20.0) H 12/06/21 21:31 Blood Type O POSITIVE 12/03/21 14:07 Antibody Screen Negative 12/03/21 14:07 Crossmatch See Detail 12/03/21 14:07 Microbiology: Microbiology 12/04/21 Unknown Other (Please Specify:) - Wound Surgical Culture - Preliminary Klebsiella Pneumoniae Escherichia Coli Methicillin Resist S. Aureus 12/04/21 Unknown Other (Please Specify:) - Wound Anaerobic Culture - Final 12/05/21 13:43 Peripheral/Venous Blood Culture - Preliminary NO GROWTH AFTER 72 HOURS 12/05/21 13:49 Peripheral/Venous Blood Culture - Preliminary NO GROWTH AFTER 72 HOURS 12/04/21 17:46 Thigh - Left Anaerobic Culture - Preliminary 12/04/21 17:46 Thigh - Left Surgical Culture - Preliminary Gram Negative Edis 11/30/21 15:56 Peripheral/Venous Blood Culture - Preliminary Victor/IV: Voiding Method External Female Catheter Active Medications - Current Medications Current Medications: Generic Name Dose Route Start Last Admin Trade Name Freq PRN Reason Stop Dose Admin Acetaminophen 650 mg 11/30/21 19:24 12/04/21 22:58 Acetaminophen 325 Mg Tab PO 650 mg Q4H PRN Administration Pain MILD(1-3)/Fever >100.5/[id number] Apixaban 2.5 mg 12/05/21 10:00 12/09/21 11:02 Apixaban 2.5 Mg Tab PO 2.5 mg Q12HR SRAVAN Administration Protocol Aspirin 81 mg 12/04/21 14:00 12/09/21 11:05 Aspirin Ec 81 Mg Tab PO 81 mg QDAY SRAVAN Administration Cilostazol 50 mg 12/01/21 22:00 12/09/21 11:02 Cilostazol 100 Mg Tab PO 50 mg BID SRAVAN Administration Docusate Sodium 100 mg 12/01/21 22:00 12/09/21 11:01 Docusate Sodium 100 Mg Cap PO 100 mg BID SRAVAN Administration Gabapentin 100 mg 12/01/21 22:00 12/09/21 11:02 Gabapentin 100 Mg Cap PO 100 mg BID SRAVAN Administration Hydromorphone HCl 0.5 mg 12/01/21 10:42 12/09/21 11:01 Hydromorphone 1 Mg/1 Ml Inj IV 0.5 mg Q4H PRN Administration Pain , Severe (7-10) Cefepime HCl 2 gm in 100 mls @ 200 mls/hr 12/01/21 10:00 12/09/21 11:02 Cefepime/Ns 2 Gm/100 Ml IV 12/13/21 22:29 200 mls/hr Q12H SRAVAN Administration Protocol Vancomycin HCl 750 mg/ Sodium 265 mls @ 166.667 mls/hr 12/07/21 11:00 12/09/21 11:05 Chloride IV 166.667 mls/hr Q12H SRAVAN Administration Ondansetron HCl 4 mg 11/30/21 19:24 12/04/21 22:52 Ondansetron 4 Mg/2 Ml Inj IV 4 mg Q8H PRN Administration Nausea And Vomiting Oxycodone/Acetaminophen 2 tab 12/02/21 11:44 12/09/21 00:31 Oxycodone /Acetaminophen 5-325mg Tab PO 2 tab Q8H PRN Administration Pain, Moderate (4-6) Pantoprazole Sodium 40 mg 12/01/21 20:00 12/09/21 11:02 Pantoprazole 40 Mg Tab PO 40 mg QDAY SRAVAN Administration Sodium Chloride 10 ml 11/30/21 22:00 12/09/21 11:01 Sodium Chloride 0.9% 10 Ml Flush Syringe IV 10 ml BID SRAVAN Administration Sodium Chloride 10 ml 11/30/21 19:24 12/09/21 05:02 Sodium Chloride 0.9% 10 Ml Flush Syringe IV 10 ml PRN PRN Administration LINE FLUSH Trazodone HCl 100 mg 12/01/21 22:00 12/08/21 22:12 Trazodone 100 Mg Tab PO 100 mg QHS SRAVAN Administration Venlafaxine HCl 75 mg 12/01/21 20:00 12/09/21 11:02 Venlafaxine 75 Mg Tab PO 75 mg DAILY SRAVAN Administration Nutrition/Malnutrition Assess - Dietary Evaluation Nutrition/Malnutrition Findings: Nutrition Notes Start: 12/05/21 15:54 Freq: Status: Active Protocol: Document 12/06/21 14:55 MERARI (Rec: 12/06/21 15:04 MERARI [id number]) Nutrition Notes Initial or Follow up Brief Note Current Diagnosis Acute Kidney Injury,Sepsis, Malnutrition Other Pertinent Diagnosis Metabolic Encephalopathy, PAD s/p Revascularization, PVD, L- LE Ischemia, .. Current Diet Regular Diet + D Suppl (since B 12/05). Height 5 ft 3 in Weight 47.3 kg [place] Body Weight (kg) 52.27 BMI 18.4 Weight change and time frame No body weight change reported in 1 day. Weight Status Underweight Subjective/Other Information RD consult for malnutrition assessment. No reports available on Pt's PO intake of meals at the time , will assess at F/U. Pt is on Room Air, O2 saturation @ 98%, according to Physical Assessmenty History notes. Percent of energy/protein needs met: Prescribed Regular Diet provides for energy/protein needs (2,289 Kcal/89 g) during LOS; additionally, Dietary Supplements will compensate for possible poor or insufficient PO intake of meals, and sopport wound healing processes with 320 Kcal and 32 g of protein. Minimum of two criteria Yes Energy Intake (non-severe) <75% Estimated Energy Requirement >7 days Interpretation of Weight Loss (severe) >5% in 1 month Fluid Accumulation Mild (non-severe) Reduced Dentist Private Practice Strength N/A (non-severe) Protein-Calorie Malnutrition Severe #2 Nutrition Diagnosis Increased nutrient needs ( specify in comment below) Comments: Protein to support wound healing processes. Diagnosis Progress(for reassessment Continues documentation) #1 Nutrition Diagnosis Malnutrition,Underweight Diagnosis Progress(for reassessment Continues documentation) Is patient on ventilator? No Is Patient Ambulatory and/or Out of Bed Yes REE-([facility]-ambulatory/OOB) [ 1328.769 [id number]] Calculation Used for Recommendations [facility] Additional Notes Protein: 1.25-1.5 g/Kg ABW; 59 -71 g/day. Fluids: 1 ml/Kcal, or as per MD. Nutrition Intervention Change Diet Order: Continue Regular Diet. Add Supplement/Snack (indicate name/kcal Start 8 fl oz Ensure High /protein ) Protein; BID. Provides kCal: 320 Provides Protein (gm) 32 Goal #1 Support, through dietary supplementation, wound healing processes during LOS. Goal #2 Compensate, through dietary supplementation, for possible poor or insufficient PO intake of meals during LOS. Follow-Up By: 12/12/21 Additional Comments Continue monitoring food tolerance, %PO intake of meals and ONS, and BM. <ARNOLD WELCH - Last Filed: 12/10/21 07:11> Assessment and Plan Assessment and plan: I saw and evaluated the patient. I agree with the findings and the plan of care as documented in the Nurse Practitioner's~note, with the following corrections and additions. Hospitalist Physical - Constitutional Vitals: Temp Pulse Resp BP Pulse Ox 99 F 84 17 133/65 96 12/10/21 04:20 12/10/21 04:20 12/10/21 04:20 12/10/21 04:20 12/10/21 04:20 HEART Score - HEART Score Troponin: Troponin T 0.119 ng/mL (0.00-0.029) H* 11/30/21 15:56 Results - Labs CBC & Chem 7: 12/08/21 04:09 12/09/21 04:51 Labs: Laboratory Last Values WBC 8.6 K/mm3 (4.5-11.0) 12/08/21 04:09 RBC 2.95 M/mm3 (3.65-5.03) L 12/08/21 04:09 Hgb 7.9 gm/dl (10.1-14.3) L 12/08/21 04:09 Hct 24.1 % (30.3-42.9) L 12/08/21 04:09 MCV 82 fl (79-97) 12/08/21 04:09 MCH 27 pg (28-32) L 12/08/21 04:09 MCHC 33 % (30-34) 12/08/21 04:09 RDW 18.6 % (13.2-15.2) H 12/08/21 04:09 Plt Count 406 K/mm3 (140-440) 12/08/21 04:09 Lymph % (Auto) 13.6 % (13.4-35.0) 12/06/21 07:15 [place] % (Auto) 10.0 % (0.0-7.3) H 12/06/21 07:15 Eos % (Auto) 4.7 % (0.0-4.3) H 12/06/21 07:15 Baso % (Auto) 1.2 % (0.0-1.8) 12/06/21 07:15 Lymph # (Auto) 1.2 K/mm3 (1.2-5.4) 12/06/21 07:15 [place] # (Auto) 0.9 K/mm3 (0.0-0.8) H 12/06/21 07:15 Eos # (Auto) 0.4 K/mm3 (0.0-0.4) 12/06/21 07:15 Baso # (Auto) 0.1 K/mm3 (0.0-0.1) 12/06/21 07:15 Add Manual Diff Complete 12/01/21 04:33 Total Counted 100 12/01/21 04:33 Seg Neutrophils % 70.5 % (40.0-70.0) H 12/06/21 07:15 Seg Neuts % (Manual) 82.0 % (40.0-70.0) H 12/01/21 04:33 Band Neutrophils % 8.0 % 12/01/21 04:33 Lymphocytes % (Manual) 5.0 % (13.4-35.0) L 12/01/21 04:33 Reactive Lymphs % (Man) 0 % 12/01/21 04:33 Monocytes % (Manual) 4.0 % (0.0-7.3) 12/01/21 04:33 Eosinophils % (Manual) 0 % (0.0-4.3) 12/01/21 04:33 Basophils % (Manual) 0 % (0.0-1.8) 12/01/21 04:33 Metamyelocytes % 1.0 % 12/01/21 04:33 Myelocytes % 0 % 12/01/21 04:33 Promyelocytes % 0 % 12/01/21 04:33 Blast Cells % 0 % 12/01/21 04:33 Nucleated RBC % Not Reportable 12/01/21 04:33 Seg Neutrophils # 6.5 K/mm3 (1.8-7.7) 12/06/21 07:15 Seg Neutrophils # Man 17.0 K/mm3 (1.8-7.7) H 12/01/21 04:33 Band Neutrophils # 1.7 K/mm3 12/01/21 04:33 Lymphocytes # (Manual) 1.0 K/mm3 (1.2-5.4) L 12/01/21 04:33 Abs React Lymphs (Man) 0.0 K/mm3 12/01/21 04:33 Monocytes # (Manual) 0.8 K/mm3 (0.0-0.8) 12/01/21 04:33 Eosinophils # (Manual) 0.0 K/mm3 (0.0-0.4) 12/01/21 04:33 Basophils # (Manual) 0.0 K/mm3 (0.0-0.1) 12/01/21 04:33 Metamyelocytes # 0.2 K/mm3 12/01/21 04:33 Myelocytes # 0.0 K/mm3 12/01/21 04:33 Promyelocytes # 0.0 K/mm3 12/01/21 04:33 Blast Cells # 0.0 K/mm3 12/01/21 04:33 WBC Morphology Not Reportable 12/01/21 04:33 Hypersegmented Neuts Not Reportable 12/01/21 04:33 Hyposegmented Neuts Not Reportable 12/01/21 04:33 Hypogranular Neuts Not Reportable 12/01/21 04:33 Smudge Cells Not Reportable 12/01/21 04:33 Toxic Granulation Not Reportable 12/01/21 04:33 Toxic Vacuolation Not Reportable 12/01/21 04:33 Dohle Bodies Not Reportable 12/01/21 04:33 Pelger-Huet Anomaly Not Reportable 12/01/21 04:33 Mary Rods Not Reportable 12/01/21 04:33 Platelet Estimate Consistent w auto 12/01/21 04:33 Clumped Platelets Not Reportable 12/01/21 04:33 Plt Clumps, EDTA Not Reportable 12/01/21 04:33 Large Platelets Not Reportable 12/01/21 04:33 Giant Platelets Not Reportable 12/01/21 04:33 Platelet Satelliting Not Reportable 12/01/21 04:33 Plt Morphology Comment Not Reportable 12/01/21 04:33 RBC Morphology Not Reportable 12/01/21 04:33 Dimorphic RBCs Not Reportable 12/01/21 04:33 Polychromasia Not Reportable 12/01/21 04:33 Hypochromasia 2+ 12/01/21 04:33 Poikilocytosis Few 12/01/21 04:33 Anisocytosis 1+ 12/01/21 04:33 Microcytosis 1+ 12/01/21 04:33 Macrocytosis Not Reportable 12/01/21 04:33 Spherocytes Not Reportable 12/01/21 04:33 Pappenheimer Bodies Not Reportable 12/01/21 04:33 Sickle Cells Not Reportable 12/01/21 04:33 Target Cells Not Reportable 12/01/21 04:33 Tear Drop Cells Not Reportable 12/01/21 04:33 Ovalocytes Few 12/01/21 04:33 Helmet Cells Not Reportable 12/01/21 04:33 [place] Bodies Not Reportable 12/01/21 04:33 [place] Rings Not Reportable 12/01/21 04:33 [place] Cells Not Reportable 12/01/21 04:33 Bite Cells Not Reportable 12/01/21 04:33 Crenated Cell Not Reportable 12/01/21 04:33 Elliptocytes Rare 12/01/21 04:33 Acanthocytes (Spur) Not Reportable 12/01/21 04:33 Rouleaux Not Reportable 12/01/21 04:33 Hemoglobin C Crystals Not Reportable 12/01/21 04:33 Schistocytes Not Reportable 12/01/21 04:33 Malaria parasites Not Reportable 12/01/21 04:33 Kvng Bodies Not Reportable 12/01/21 04:33 Hem Pathologist Commnt No 12/01/21 04:33 PT 14.9 Sec. (12.2-14.9) 12/04/21 04:35 INR 1.05 (0.87-1.13) 12/04/21 04:35 APTT 43.1 Sec. (24.2-36.6) H 11/30/21 15:56 VBG pH 7.509 (7.320-7.420) H 11/30/21 15:57 Sodium 139 mmol/L (137-145) 12/09/21 04:51 Potassium 3.7 mmol/L (3.6-5.0) D 12/09/21 04:51 Chloride 104.9 mmol/L (98-107) 12/09/21 04:51 Carbon Dioxide 27 mmol/L (22-30) 12/09/21 04:51 Anion Gap 11 mmol/L 12/09/21 04:51 BUN 7 mg/dL (7-17) 12/09/21 04:51 Creatinine 0.5 mg/dL (0.6-1.2) L 12/09/21 04:51 Estimated GFR > 60 ml/min 12/09/21 04:51 BUN/Creatinine Ratio 14 % 12/09/21 04:51 Glucose 91 mg/dL (65-100) 12/09/21 04:51 Lactic Acid 1.20 mmol/L (0.7-2.0) 11/30/21 17:23 Calcium 7.6 mg/dL (8.4-10.2) L 12/09/21 04:51 Phosphorus 3.20 mg/dL (2.5-4.5) 12/05/21 13:43 Magnesium 1.80 mg/dL (1.7-2.3) 12/03/21 04:24 Total Bilirubin 0.30 mg/dL (0.1-1.2) 12/06/21 07:15 AST 14 units/L (5-40) 12/06/21 07:15 ALT 6 units/L (7-56) L 12/06/21 07:15 Alkaline Phosphatase 87 units/L (35-129) 12/06/21 07:15 Troponin T 0.119 ng/mL (0.00-0.029) H* 11/30/21 15:56 Total Protein 4.3 g/dL (6.3-8.2) L 12/06/21 07:15 Albumin 1.6 g/dL (3.9-5) L 12/06/21 07:15 Albumin/Globulin Ratio 0.6 % 12/06/21 07:15 Triglycerides 108 mg/dL (2-149) 11/30/21 15:56 Cholesterol 82 mg/dL (50-199) 11/30/21 15:56 LDL Cholesterol Direct 38 mg/dL (50-130) L 11/30/21 15:56 HDL Cholesterol 28 mg/dL (40-59) L 11/30/21 15:56 Cholesterol/HDL Ratio 2.92 % 11/30/21 15:56 TSH 1.870 mlU/mL (0.270-4.200) 11/30/21 15:57 Urine Color Yellow (Yellow) 11/30/21 02:50 Urine Turbidity Clear (Clear) 11/30/21 02:50 Urine pH 6.0 (5.0-7.0) 11/30/21 02:50 Ur Specific [place] 1.005 (1.003-1.030) 11/30/21 02:50 Urine Protein <15 mg/dl mg/dL (Negative) 11/30/21 02:50 Urine Glucose (UA) Neg mg/dL (Negative) 11/30/21 02:50 Urine Ketones Neg mg/dL (Negative) 11/30/21 02:50 Urine Blood Sm (Negative) 11/30/21 02:50 Urine Nitrite Neg (Negative) 11/30/21 02:50 Urine Bilirubin Neg (Negative) 11/30/21 02:50 Urine Urobilinogen < 2.0 mg/dL (<2.0) 11/30/21 02:50 Ur Leukocyte Esterase Neg (Negative) 11/30/21 02:50 Urine WBC (Auto) 2.0 /HPF (0.0-6.0) 11/30/21 02:50 Urine RBC (Auto) 2.0 /HPF (0.0-6.0) 11/30/21 02:50 U Epithel Cells (Auto) 1.0 /HPF (0-13.0) 11/30/21 02:50 Urine Bacteria (Auto) 1+ /HPF (Negative) 11/30/21 02:50 Urine Yeast (Budding) 1+ /HPF 11/30/21 02:50 Vancomycin Trough 18.8 ug/mL (5.0-20.0) 12/09/21 22:10 Blood Type O POSITIVE 12/03/21 14:07 Antibody Screen Negative 12/03/21 14:07 Crossmatch See Detail 12/03/21 14:07 Microbiology: Microbiology 12/05/21 13:43 Peripheral/Venous Blood Culture - Preliminary NO GROWTH AFTER 4 DAYS 12/05/21 13:49 Peripheral/Venous Blood Culture - Preliminary NO GROWTH AFTER 4 DAYS 12/04/21 17:46 Thigh - Left Surgical Culture - Preliminary Gram Negative Edis Enterococcus Species 12/04/21 Unknown Other (Please Specify:) - Wound Surgical Culture - Final Klebsiella Pneumoniae Escherichia Coli Methicillin Resist S. Aureus 12/04/21 Unknown Other (Please Specify:) - Wound Anaerobic Culture - Final Victor/IV: Voiding Method Indwelling Catheter Active Medications - Current Medications Current Medications: Generic Name Dose Route Start Last Admin Trade Name Freq PRN Reason Stop Dose Admin Acetaminophen 650 mg 11/30/21 19:24 12/04/21 22:58 Acetaminophen 325 Mg Tab PO 650 mg Q4H PRN Administration Pain MILD(1-3)/Fever >100.5/[id number] Apixaban 2.5 mg 12/05/21 10:00 12/09/21 21:45 Apixaban 2.5 Mg Tab PO 2.5 mg Q12HR SRAVAN Administration Protocol Aspirin 81 mg 12/04/21 14:00 12/09/21 11:05 Aspirin Ec 81 Mg Tab PO 81 mg QDAY SRAVAN Administration Cilostazol 50 mg 12/01/21 22:00 12/09/21 21:45 Cilostazol 100 Mg Tab PO 50 mg BID SRAVAN Administration Docusate Sodium 100 mg 12/01/21 22:00 12/09/21 21:45 Docusate Sodium 100 Mg Cap PO 100 mg BID SRAVAN Administration Gabapentin 100 mg 12/01/21 22:00 12/09/21 21:45 Gabapentin 100 Mg Cap PO 100 mg BID SRAVAN Administration Hydromorphone HCl 0.5 mg 12/01/21 10:42 12/09/21 22:30 Hydromorphone 1 Mg/1 Ml Inj IV 0.5 mg Q4H PRN Administration Pain , Severe (7-10) Cefepime HCl 2 gm in 100 mls @ 200 mls/hr 12/01/21 10:00 12/09/21 21:48 Cefepime/Ns 2 Gm/100 Ml IV 12/13/21 22:29 200 mls/hr Q12H SRAVAN Administration Protocol Vancomycin HCl 750 mg/ Sodium 265 mls @ 166.667 mls/hr 12/07/21 11:00 12/10/21 00:00 Chloride IV 12/14/21 00:36 166.667 mls/hr Q12H SRAVAN Administration Ondansetron HCl 4 mg 11/30/21 19:24 12/04/21 22:52 Ondansetron 4 Mg/2 Ml Inj IV 4 mg Q8H PRN Administration Nausea And Vomiting Oxycodone/Acetaminophen 2 tab 12/02/21 11:44 12/10/21 03:02 Oxycodone /Acetaminophen 5-325mg Tab PO 2 tab Q8H PRN Administration Pain, Moderate (4-6) Pantoprazole Sodium 40 mg 12/01/21 20:00 12/09/21 11:02 Pantoprazole 40 Mg Tab PO 40 mg QDAY SRAVAN Administration Sodium Chloride 10 ml 11/30/21 22:00 12/09/21 21:46 Sodium Chloride 0.9% 10 Ml Flush Syringe IV 10 ml BID SRAVAN Administration Sodium Chloride 10 ml 11/30/21 19:24 12/09/21 05:02 Sodium Chloride 0.9% 10 Ml Flush Syringe IV 10 ml PRN PRN Administration LINE FLUSH Trazodone HCl 100 mg 12/01/21 22:00 12/09/21 21:45 Trazodone 100 Mg Tab PO 100 mg QHS SRAVAN Administration Venlafaxine HCl 75 mg 12/01/21 20:00 12/09/21 11:02 Venlafaxine 75 Mg Tab PO 75 mg DAILY SRAVAN Administration Nutrition/Malnutrition Assess - Dietary Evaluation Nutrition/Malnutrition Findings: Nutrition Notes Start: 12/05/21 15:54 Freq: Status: Active Protocol: Document 12/06/21 14:55 MERARI (Rec: 12/06/21 15:04 MERARI [id number]) Nutrition Notes Initial or Follow up Brief Note Current Diagnosis Acute Kidney Injury,Sepsis, Malnutrition Other Pertinent Diagnosis Metabolic Encephalopathy, PAD s/p Revascularization, PVD, L- LE Ischemia, .. Current Diet Regular Diet + D Suppl (since B 12/05). Height 5 ft 3 in Weight 47.3 kg [place] Body Weight (kg) 52.27 BMI 18.4 Weight change and time frame No body weight change reported in 1 day. Weight Status Underweight Subjective/Other Information RD consult for malnutrition assessment. No reports available on Pt's PO intake of meals at the time , will assess at F/U. Pt is on Room Air, O2 saturation @ 98%, according to Physical Assessmenty History notes. Percent of energy/protein needs met: Prescribed Regular Diet provides for energy/protein needs (2,289 Kcal/89 g) during LOS; additionally, Dietary Supplements will compensate for possible poor or insufficient PO intake of meals, and sopport wound healing processes with 320 Kcal and 32 g of protein. Minimum of two criteria Yes Energy Intake (non-severe) <75% Estimated Energy Requirement >7 days Interpretation of Weight Loss (severe) >5% in 1 month Fluid Accumulation Mild (non-severe) Reduced Dentist Private Practice Strength N/A (non-severe) Protein-Calorie Malnutrition Severe #2 Nutrition Diagnosis Increased nutrient needs ( specify in comment below) Comments: Protein to support wound healing processes. Diagnosis Progress(for reassessment Continues documentation) #1 Nutrition Diagnosis Malnutrition,Underweight Diagnosis Progress(for reassessment Continues documentation) Is patient on ventilator? No Is Patient Ambulatory and/or Out of Bed Yes REE-([facility]-ambulatory/OOB) [ [id number] [id number]] Calculation Used for Recommendations [facility] Additional Notes Protein: 1.25-1.5 g/Kg ABW; 59 -71 g/day. Fluids: 1 ml/Kcal, or as per MD. Nutrition Intervention Change Diet Order: Continue Regular Diet. Add Supplement/Snack (indicate name/kcal Start 8 fl oz Ensure High /protein ) Protein; BID. Provides kCal: 320 Provides Protein (gm) 32 Goal #1 Support, through dietary supplementation, wound healing processes during LOS. Goal #2 Compensate, through dietary supplementation, for possible poor or insufficient PO intake of meals during LOS. Follow-Up By: 12/12/21 Additional Comments Continue monitoring food tolerance, %PO intake of meals and ONS, and BM.
[2021-12-09] MEDS: traZODone 100 MG TAB PO SCH (21:45)
[2021-12-10] MEDS: oxyCODONE /ACETAMINOPHEN 5-325MG TAB PO PRN ×2 (03:02→14:16)
--- NOTE | 2021-12-10 07:26 | Progress Note ---
Assessment and Plan Assessment and plan: This is a 56-year-old female with severe PVD, CAD, HTN, HLD, anemia, EtOH and tobacco abuse who is s/p left femoral to below the knee popliteal artery bypass complicated by compartment syndrome s/p fasciotomy and right leg revascularization who was discharged to SNF after almost 3 week stay via EMS for altered mental status and was hypoentive in ED despite fluid resuscitation was eventually started on Levophed with a placement of central line. Patient was also anemic with a hemoglobin of 6.2 and 1 unit PRBC was transfused. She also had leukocytosis, acute kidney injury, elevated troponin and purulent drainage from wounds. Patient was admitted to the hospital service with consult to vascular surgery, ID and CCM with Sepsis. Hospital Course to Date: 12/01: Additional LR boluses, KCL 40 PO, prn diludid given for pain. Wean levophed as tolerated. 12/02: Adjustment to pain regimen, CTA pelvis and lower extremities with contrast obtained. Phosphorus and magnesium repleted 12/03: No vascular interventions till Saturday/Saturday. Pain better controlled. No acute events overnight. Transfer to [facility] 12/04: OR today for surgery by IR. Am labs ordered. 12/05/21-patient is seen at bedside. Patient alert and oriented. V/S stable. She is s/p excision of Infected Left Femoral to Below-Knee Popliteal Artery Bypass Graft-done 12/04/21. Wound VAC Placement left groin. patient reports pain left. Unable to feel left pedal pulse with doppler. patient's nurse at bedside at the time of assessment. I spoke to Dr Edge-vascular surgeon-he agreed to come and re-assess pt. 12/06: Remains afebrile and hemodynamicaly stable. Vascular surgery recommendations noted. Plan to discharge back to subacute rehab when okayed by ID, awaiting antibiotics recommendations. 12/07: RUTH overnight. Vascular Surg and ID recommendations noted. PT recommends subacute rehab, however patient refused subacute rehab and requested to go home with [facility]. Thorough discussion with patient at the bedside, discussing risks and potential worsening of condition without proper care and supervision, especially since she lives alone at home. Patient verbalized understanding of the info provided but still refused subacute rehab and was adamant to be discharge home. director power to switch patient to a home wound VAC. Plan for possible discharge home tomorrow with [facility] and home wound care. Case management to arrange. 12/08: RUTH overnight. Awaiting home wound vac supplies, per case management supplies will be delivered tomorrow. Continue current supportive measures. Plan for possible discharge tomorrow once wound vac supplies is available and wound vac is bridge by social sciences instructor. 12/09: Still waiting on wound vac supplies and wound Vac bridge. Discharge postpone for possibly Saturday. D/w patient at the bedside. Continue current supportive care and physical therapy. 12/10: Patient continues to insist that she wants to go home rather than go to subacute rehab which is recommended. She understands that this is not the optimal discharge plan as her wound needs adequate care. However she remains in the hospital as supplies for wound VAC is limiting her discharge Per IR/vascular surgeon team " Patient was supposed to have her wound VAC on the middle and lower surgical sites placed on , wound nurse did not have appropriate supplies but noted that she would return on Saturday. This did not happen. [facility] is bringing by a canister today for the patient's home wound VAC. Hopefully, they will bring enough supplies to place wound vacs. However, would anticipate that the patient may continue her hospitalization until Saturday..... Her foot is warm and perfused with faintly palpable pulses. Patient with reperfusion edema. Wet-to-dry dressing changes on the inferior and middle surgical sites, wound VAC in the groin." On discharge per ID patient will be placed on Levaquin. Assessment and Plan: Septic shock (POA), leukocytosis(improved) -Presented with leukocytosis, acute kidney injury, purulent drainage from leg wounds -Infectious disease consulted, appreciate recommendations -Antibiotic therapy with cefepime and vancomycin -WOCN consulted for wound care -f/u blood culture -Monitor WBC and temperature curve -Per ID: Okay to discharge with Levaquin 750 mg every 24 hours to complete 7 further days Severe PVD s/p left femoral to below-knee popliteal artery bypass with fasciotomy, right lower extremity vascularization -Presented with Presented with leukocytosis, and purulent drainage from leg wounds -CTA BLE shows air within the left femoral to popliteal artery bypass graft as well as in fluid collections along the graft. -Vascular Surgery consulted and reviewed imaging and determined that LLE graft was infected -7/18 s/p excision of left common femoral to left below-knee popliteal artery bypass graft. -LLE wound vac in placed, no s/s of any complications noted -Continue ASA,Eliquis, Pletal, and gabapentin -Vascular checks per protocol -Continue wound care per Vascular Surgery -Wound Care consulted Acute Anemia -Presented with low H&H, s/p 5units of PRBCs -H&H stable this am -Continue to monitor for signs of bleeding -Transfuse for hgb less than 7 Neuro: h/o CVA, Depression, EtOH abuse -Reorientation as needed -Maintain sleep-wake cycle -As needed analgesia -Resumed home meds Cardiac: Hypertension -Presented with hypotension most likelu due to sepsis required vasopressors -BP stable now -Continue Blood pressure monitoring per protocol -Maintain SBP less than 120 Nicotine Dependence -Per patient last cigarettes was a week ago -Smoking cessation education provided, patient voiced understanding and agreed with the info provided -Admit that quitting is hard and she still having urges, Nicotine patch ordered GI: Moderate Protein calorie malnutrition -Regular diet with nutritional supplementation -Nutrition consulted -BR: colace : Acute kidney injury secondary to vasomotor nephropathy, Hypokalemia(resolved) -Renal function back to baseline -Monitor intake and output -Renally dose medications -Avoid nephrotoxic medications -Trend BMP GI/DVT Prophylaxis -PPI-Protonix -On Eliquis Advance Care Planning -Disease education data, care plan, diagnoses, and prognosis were discussed with patient at the bedside. Patient is full code. Patient acknowledged understanding and agreement with current care plan. -Plan to discharge back to subacute rehab when okayed by ID, awaiting antibiotics recommendations History Interval history: Patient seen and examined, resting comfortable, No new complaints, wants to go home, understands that the wound needs appropriate care Hospitalist Physical - Physical exam Narrative exam: - Physical exam Narrative exam: General appearance: Present: no acute distress, cachectic - EENT Eyes: Present: PERRL, EOM intact ENT: hearing intact - Neck Neck: Present: normal ROM - Respiratory Respiratory effort: normal Respiratory: bilateral: diminished - Cardiovascular Rhythm: regular Heart Sounds: Present: S1 & S2 - Extremities Extremities: no ischemia, pulses intact, pulses symmetrical, abnormal (LLE clean and intact dressing with Wound vac. No complications noted) Extremity abnormal: edema - Peripheral Assessment Left Lower Extremity Edema Type: Pitting Edema Degree: 2+ Capillary Refill: < 3 seconds Skin Temperature: Warm Peripheral Pulses: abnormal (LLE pulses appreciated with a doppler) - Abdominal General gastrointestinal: soft, non-distended, normal bowel sounds - Integumentary Integumentary: Present: warm, dry - Psychiatric Psychiatric: appropriate mood/affect, cooperative - Neurologic Neurologic: moves all extremities (LLE with limited ROM) - Allied Health Allied health notes reviewed: nursing, case management - Constitutional Vitals: Temp Pulse Resp BP Pulse Ox 99 F 84 17 133/65 96 12/10/21 04:20 12/10/21 04:20 12/10/21 04:20 12/10/21 04:20 12/10/21 04:20 General appearance: Present: no acute distress, well-nourished, obese HEART Score - HEART Score Troponin: Troponin T 0.119 ng/mL (0.00-0.029) H* 11/30/21 15:56 Results - Labs CBC & Chem 7: 12/08/21 04:09 12/09/21 04:51 Labs: Laboratory Last Values WBC 8.6 K/mm3 (4.5-11.0) 12/08/21 04:09 RBC 2.95 M/mm3 (3.65-5.03) L 12/08/21 04:09 Hgb 7.9 gm/dl (10.1-14.3) L 12/08/21 04:09 Hct 24.1 % (30.3-42.9) L 12/08/21 04:09 MCV 82 fl (79-97) 12/08/21 04:09 MCH 27 pg (28-32) L 12/08/21 04:09 MCHC 33 % (30-34) 12/08/21 04:09 RDW 18.6 % (13.2-15.2) H 12/08/21 04:09 Plt Count 406 K/mm3 (140-440) 12/08/21 04:09 Lymph % (Auto) 13.6 % (13.4-35.0) 12/06/21 07:15 [place] % (Auto) 10.0 % (0.0-7.3) H 12/06/21 07:15 Eos % (Auto) 4.7 % (0.0-4.3) H 12/06/21 07:15 Baso % (Auto) 1.2 % (0.0-1.8) 12/06/21 07:15 Lymph # (Auto) 1.2 K/mm3 (1.2-5.4) 12/06/21 07:15 [place] # (Auto) 0.9 K/mm3 (0.0-0.8) H 12/06/21 07:15 Eos # (Auto) 0.4 K/mm3 (0.0-0.4) 12/06/21 07:15 Baso # (Auto) 0.1 K/mm3 (0.0-0.1) 12/06/21 07:15 Add Manual Diff Complete 12/01/21 04:33 Total Counted 100 12/01/21 04:33 Seg Neutrophils % 70.5 % (40.0-70.0) H 12/06/21 07:15 Seg Neuts % (Manual) 82.0 % (40.0-70.0) H 12/01/21 04:33 Band Neutrophils % 8.0 % 12/01/21 04:33 Lymphocytes % (Manual) 5.0 % (13.4-35.0) L 12/01/21 04:33 Reactive Lymphs % (Man) 0 % 12/01/21 04:33 Monocytes % (Manual) 4.0 % (0.0-7.3) 12/01/21 04:33 Eosinophils % (Manual) 0 % (0.0-4.3) 12/01/21 04:33 Basophils % (Manual) 0 % (0.0-1.8) 12/01/21 04:33 Metamyelocytes % 1.0 % 12/01/21 04:33 Myelocytes % 0 % 12/01/21 04:33 Promyelocytes % 0 % 12/01/21 04:33 Blast Cells % 0 % 12/01/21 04:33 Nucleated RBC % Not Reportable 12/01/21 04:33 Seg Neutrophils # 6.5 K/mm3 (1.8-7.7) 12/06/21 07:15 Seg Neutrophils # Man 17.0 K/mm3 (1.8-7.7) H 12/01/21 04:33 Band Neutrophils # 1.7 K/mm3 12/01/21 04:33 Lymphocytes # (Manual) 1.0 K/mm3 (1.2-5.4) L 12/01/21 04:33 Abs React Lymphs (Man) 0.0 K/mm3 12/01/21 04:33 Monocytes # (Manual) 0.8 K/mm3 (0.0-0.8) 12/01/21 04:33 Eosinophils # (Manual) 0.0 K/mm3 (0.0-0.4) 12/01/21 04:33 Basophils # (Manual) 0.0 K/mm3 (0.0-0.1) 12/01/21 04:33 Metamyelocytes # 0.2 K/mm3 12/01/21 04:33 Myelocytes # 0.0 K/mm3 12/01/21 04:33 Promyelocytes # 0.0 K/mm3 12/01/21 04:33 Blast Cells # 0.0 K/mm3 12/01/21 04:33 WBC Morphology Not Reportable 12/01/21 04:33 Hypersegmented Neuts Not Reportable 12/01/21 04:33 Hyposegmented Neuts Not Reportable 12/01/21 04:33 Hypogranular Neuts Not Reportable 12/01/21 04:33 Smudge Cells Not Reportable 12/01/21 04:33 Toxic Granulation Not Reportable 12/01/21 04:33 Toxic Vacuolation Not Reportable 12/01/21 04:33 Dohle Bodies Not Reportable 12/01/21 04:33 Pelger-Huet Anomaly Not Reportable 12/01/21 04:33 Mary Rods Not Reportable 12/01/21 04:33 Platelet Estimate Consistent w auto 12/01/21 04:33 Clumped Platelets Not Reportable 12/01/21 04:33 Plt Clumps, EDTA Not Reportable 12/01/21 04:33 Large Platelets Not Reportable 12/01/21 04:33 Giant Platelets Not Reportable 12/01/21 04:33 Platelet Satelliting Not Reportable 12/01/21 04:33 Plt Morphology Comment Not Reportable 12/01/21 04:33 RBC Morphology Not Reportable 12/01/21 04:33 Dimorphic RBCs Not Reportable 12/01/21 04:33 Polychromasia Not Reportable 12/01/21 04:33 Hypochromasia 2+ 12/01/21 04:33 Poikilocytosis Few 12/01/21 04:33 Anisocytosis 1+ 12/01/21 04:33 Microcytosis 1+ 12/01/21 04:33 Macrocytosis Not Reportable 12/01/21 04:33 Spherocytes Not Reportable 12/01/21 04:33 Pappenheimer Bodies Not Reportable 12/01/21 04:33 Sickle Cells Not Reportable 12/01/21 04:33 Target Cells Not Reportable 12/01/21 04:33 Tear Drop Cells Not Reportable 12/01/21 04:33 Ovalocytes Few 12/01/21 04:33 Helmet Cells Not Reportable 12/01/21 04:33 [place] Bodies Not Reportable 12/01/21 04:33 Paden Rings Not Reportable 12/01/21 04:33 Jelm Cells Not Reportable 12/01/21 04:33 Bite Cells Not Reportable 12/01/21 04:33 Crenated Cell Not Reportable 12/01/21 04:33 Elliptocytes Rare 12/01/21 04:33 Acanthocytes (Spur) Not Reportable 12/01/21 04:33 Rouleaux Not Reportable 12/01/21 04:33 Hemoglobin C Crystals Not Reportable 12/01/21 04:33 Schistocytes Not Reportable 12/01/21 04:33 Malaria parasites Not Reportable 12/01/21 04:33 Kvng Bodies Not Reportable 12/01/21 04:33 Hem Pathologist Commnt No 12/01/21 04:33 PT 14.9 Sec. (12.2-14.9) 12/04/21 04:35 INR 1.05 (0.87-1.13) 12/04/21 04:35 APTT 43.1 Sec. (24.2-36.6) H 11/30/21 15:56 VBG pH 7.509 (7.320-7.420) H 11/30/21 15:57 Sodium 139 mmol/L (137-145) 12/09/21 04:51 Potassium 3.7 mmol/L (3.6-5.0) D 12/09/21 04:51 Chloride 104.9 mmol/L (98-107) 12/09/21 04:51 Carbon Dioxide 27 mmol/L (22-30) 12/09/21 04:51 Anion Gap 11 mmol/L 12/09/21 04:51 BUN 7 mg/dL (7-17) 12/09/21 04:51 Creatinine 0.5 mg/dL (0.6-1.2) L 12/09/21 04:51 Estimated GFR > 60 ml/min 12/09/21 04:51 BUN/Creatinine Ratio 14 % 12/09/21 04:51 Glucose 91 mg/dL (65-100) 12/09/21 04:51 Lactic Acid 1.20 mmol/L (0.7-2.0) 11/30/21 17:23 Calcium 7.6 mg/dL (8.4-10.2) L 12/09/21 04:51 Phosphorus 3.20 mg/dL (2.5-4.5) 12/05/21 13:43 Magnesium 1.80 mg/dL (1.7-2.3) 12/03/21 04:24 Total Bilirubin 0.30 mg/dL (0.1-1.2) 12/06/21 07:15 AST 14 units/L (5-40) 12/06/21 07:15 ALT 6 units/L (7-56) L 12/06/21 07:15 Alkaline Phosphatase 87 units/L (35-129) 12/06/21 07:15 Troponin T 0.119 ng/mL (0.00-0.029) H* 11/30/21 15:56 Total Protein 4.3 g/dL (6.3-8.2) L 12/06/21 07:15 Albumin 1.6 g/dL (3.9-5) L 12/06/21 07:15 Albumin/Globulin Ratio 0.6 % 12/06/21 07:15 Triglycerides 108 mg/dL (2-149) 11/30/21 15:56 Cholesterol 82 mg/dL (50-199) 11/30/21 15:56 LDL Cholesterol Direct 38 mg/dL (50-130) L 11/30/21 15:56 HDL Cholesterol 28 mg/dL (40-59) L 11/30/21 15:56 Cholesterol/HDL Ratio 2.92 % 11/30/21 15:56 TSH 1.870 mlU/mL (0.270-4.200) 11/30/21 15:57 Urine Color Yellow (Yellow) 11/30/21 02:50 Urine Turbidity Clear (Clear) 11/30/21 02:50 Urine pH 6.0 (5.0-7.0) 11/30/21 02:50 Ur Specific [place] 1.005 (1.003-1.030) 11/30/21 02:50 Urine Protein <15 mg/dl mg/dL (Negative) 11/30/21 02:50 Urine Glucose (UA) Neg mg/dL (Negative) 11/30/21 02:50 Urine Ketones Neg mg/dL (Negative) 11/30/21 02:50 Urine Blood Sm (Negative) 11/30/21 02:50 Urine Nitrite Neg (Negative) 11/30/21 02:50 Urine Bilirubin Neg (Negative) 11/30/21 02:50 Urine Urobilinogen < 2.0 mg/dL (<2.0) 11/30/21 02:50 Ur Leukocyte Esterase Neg (Negative) 11/30/21 02:50 Urine WBC (Auto) 2.0 /HPF (0.0-6.0) 11/30/21 02:50 Urine RBC (Auto) 2.0 /HPF (0.0-6.0) 11/30/21 02:50 U Epithel Cells (Auto) 1.0 /HPF (0-13.0) 11/30/21 02:50 Urine Bacteria (Auto) 1+ /HPF (Negative) 11/30/21 02:50 Urine Yeast (Budding) 1+ /HPF 11/30/21 02:50 Vancomycin Trough 18.8 ug/mL (5.0-20.0) 12/09/21 22:10 Blood Type O POSITIVE 12/03/21 14:07 Antibody Screen Negative 12/03/21 14:07 Crossmatch See Detail 12/03/21 14:07 Microbiology: Microbiology 12/05/21 13:43 Peripheral/Venous Blood Culture - Preliminary NO GROWTH AFTER 4 DAYS 12/05/21 13:49 Peripheral/Venous Blood Culture - Preliminary NO GROWTH AFTER 4 DAYS 12/04/21 17:46 Thigh - Left Surgical Culture - Preliminary Gram Negative Edis Enterococcus Species 12/04/21 Unknown Other (Please Specify:) - Wound Surgical Culture - Final Klebsiella Pneumoniae Escherichia Coli Methicillin Resist S. Aureus 12/04/21 Unknown Other (Please Specify:) - Wound Anaerobic Culture - Final Victor/IV: Voiding Method Indwelling Catheter Active Medications - Current Medications Current Medications: Generic Name Dose Route Start Last Admin Trade Name Freq PRN Reason Stop Dose Admin Acetaminophen 650 mg 11/30/21 19:24 12/04/21 22:58 Acetaminophen 325 Mg Tab PO 650 mg Q4H PRN Administration Pain MILD(1-3)/Fever >100.5/[id number] Apixaban 2.5 mg 12/05/21 10:00 12/09/21 21:45 Apixaban 2.5 Mg Tab PO 2.5 mg Q12HR SRAVAN Administration Protocol Aspirin 81 mg 12/04/21 14:00 12/09/21 11:05 Aspirin Ec 81 Mg Tab PO 81 mg QDAY SRAVAN Administration Cilostazol 50 mg 12/01/21 22:00 12/09/21 21:45 Cilostazol 100 Mg Tab PO 50 mg BID SRAVAN Administration Docusate Sodium 100 mg 12/01/21 22:00 12/09/21 21:45 Docusate Sodium 100 Mg Cap PO 100 mg BID SRAVAN Administration Gabapentin 100 mg 12/01/21 22:00 12/09/21 21:45 Gabapentin 100 Mg Cap PO 100 mg BID SRAVAN Administration Hydromorphone HCl 0.5 mg 12/01/21 10:42 12/09/21 22:30 Hydromorphone 1 Mg/1 Ml Inj IV 0.5 mg Q4H PRN Administration Pain , Severe (7-10) Cefepime HCl 2 gm in 100 mls @ 200 mls/hr 12/01/21 10:00 12/09/21 21:48 Cefepime/Ns 2 Gm/100 Ml IV 12/13/21 22:29 200 mls/hr Q12H SRAVAN Administration Protocol Vancomycin HCl 750 mg/ Sodium 265 mls @ 166.667 mls/hr 12/07/21 11:00 12/10/21 00:00 Chloride IV 12/14/21 00:36 166.667 mls/hr Q12H SRAVAN Administration Ondansetron HCl 4 mg 11/30/21 19:24 12/04/21 22:52 Ondansetron 4 Mg/2 Ml Inj IV 4 mg Q8H PRN Administration Nausea And Vomiting Oxycodone/Acetaminophen 2 tab 12/02/21 11:44 12/10/21 03:02 Oxycodone /Acetaminophen 5-325mg Tab PO 2 tab Q8H PRN Administration Pain, Moderate (4-6) Pantoprazole Sodium 40 mg 12/01/21 20:00 12/09/21 11:02 Pantoprazole 40 Mg Tab PO 40 mg QDAY SRAVAN Administration Sodium Chloride 10 ml 11/30/21 22:00 12/09/21 21:46 Sodium Chloride 0.9% 10 Ml Flush Syringe IV 10 ml BID SRAVAN Administration Sodium Chloride 10 ml 11/30/21 19:24 12/09/21 05:02 Sodium Chloride 0.9% 10 Ml Flush Syringe IV 10 ml PRN PRN Administration LINE FLUSH Trazodone HCl 100 mg 12/01/21 22:00 12/09/21 21:45 Trazodone 100 Mg Tab PO 100 mg QHS SRAVAN Administration Venlafaxine HCl 75 mg 12/01/21 20:00 12/09/21 11:02 Venlafaxine 75 Mg Tab PO 75 mg DAILY SRAVAN Administration Nutrition/Malnutrition Assess - Dietary Evaluation Nutrition/Malnutrition Findings: Nutrition Notes Start: 12/05/21 15:54 Freq: Status: Active Protocol: Document 12/06/21 14:55 MERARI (Rec: 12/06/21 15:04 MERARI [id number]) Nutrition Notes Initial or Follow up Brief Note Current Diagnosis Acute Kidney Injury,Sepsis, Malnutrition Other Pertinent Diagnosis Metabolic Encephalopathy, PAD s/p Revascularization, PVD, L- LE Ischemia, .. Current Diet Regular Diet + D Suppl (since B 12/05). Height 5 ft 3 in Weight 47.3 kg [place] Body Weight (kg) 52.27 BMI 18.4 Weight change and time frame No body weight change reported in 1 day. Weight Status Underweight Subjective/Other Information RD consult for malnutrition assessment. No reports available on Pt's PO intake of meals at the time , will assess at F/U. Pt is on Room Air, O2 saturation @ 98%, according to Physical Assessmenty History notes. Percent of energy/protein needs met: Prescribed Regular Diet provides for energy/protein needs (2,289 Kcal/89 g) during LOS; additionally, Dietary Supplements will compensate for possible poor or insufficient PO intake of meals, and sopport wound healing processes with 320 Kcal and 32 g of protein. Minimum of two criteria Yes Energy Intake (non-severe) <75% Estimated Energy Requirement >7 days Interpretation of Weight Loss (severe) >5% in 1 month Fluid Accumulation Mild (non-severe) Reduced [employer] Strength N/A (non-severe) Protein-Calorie Malnutrition Severe #2 Nutrition Diagnosis Increased nutrient needs ( specify in comment below) Comments: Protein to support wound healing processes. Diagnosis Progress(for reassessment Continues documentation) #1 Nutrition Diagnosis Malnutrition,Underweight Diagnosis Progress(for reassessment Continues documentation) Is patient on ventilator? No Is Patient Ambulatory and/or Out of Bed Yes REE-([place] or-ambulatory/OOB) [ 1328.769 [id number]] Calculation Used for Recommendations [facility] Additional Notes Protein: 1.25-1.5 g/Kg ABW; 59 -71 g/day. Fluids: 1 ml/Kcal, or as per MD. Nutrition Intervention Change Diet Order: Continue Regular Diet. Add Supplement/Snack (indicate name/kcal Start 8 fl oz Ensure High /protein ) Protein; BID. Provides kCal: 320 Provides Protein (gm) 32 Goal #1 Support, through dietary supplementation, wound healing processes during LOS. Goal #2 Compensate, through dietary supplementation, for possible poor or insufficient PO intake of meals during LOS. Follow-Up By: 12/12/21 Additional Comments Continue monitoring food tolerance, %PO intake of meals and ONS, and BM.
[2021-12-10] MEDS: HYDROmorphone 1 MG/1 ML INJ IV PRN ×2 (09:38→22:01)
[2021-12-10] MEDS: ASPIRIN EC 81 MG TAB PO SCH (09:39)
[2021-12-10] MEDS: DOCUSATE SODIUM 100 MG CAP PO SCH ×2 (09:40→21:57)
[2021-12-10] MEDS: GABAPENTIN 100 MG CAP PO SCH ×2 (09:40→21:57)
[2021-12-10] MEDS: CILOSTAZOL 100 MG TAB PO SCH ×2 (09:40→21:57)
[2021-12-10] MEDS: PANTOPRAZOLE 40 MG TAB PO SCH (09:40)
[2021-12-10] MEDS: APIXABAN 2.5 MG TAB PO SCH ×2 (09:41→21:57)
[2021-12-10] MEDS: CEFEPIME/NS 2 GM/100 ML 2 GM/100 ML BAG IV SCH ×2 (09:53→21:56)
--- NOTE | 2021-12-10 10:16 | Progress Note ---
Assessment and Plan Wound VAC application hopefully on Saturday with discharge. Subjective Date of service: 12/10/21 Principal diagnosis: PVD with infected graft Interval history: Patient resting comfortably in bed. Her foot is warm and perfused with faintly palpable pulses. Patient with reperfusion edema. Wet-to-dry dressing changes on the inferior and middle surgical sites, wound VAC in the groin. Objective - Constitutional Vitals: Vital Signs - 12hr 12/09/21 12/09/21 12/09/21 22:26 22:30 23:00 Temperature 98.4 F Pulse Rate 76 Respiratory 18 17 17 Rate Blood Pressure 150/79 [Left] O2 Sat by Pulse 96 Oximetry 12/10/21 12/10/21 12/10/21 00:00 03:02 04:00 Temperature Pulse Rate 83 84 Respiratory 17 Rate Blood Pressure [Left] O2 Sat by Pulse 96 96 Oximetry 12/10/21 04:20 Temperature 99 F Pulse Rate 84 Respiratory 17 Rate Blood Pressure 133/65 [Left] O2 Sat by Pulse 96 Oximetry General appearance: Present: no acute distress - EENT Eyes: EOM intact ENT: hearing intact - Neck Neck: supple, normal ROM - Respiratory Respiratory effort: normal - Breasts Breasts: deferred Extremities: abnormal - Gastrointestinal General gastrointestinal: Present: deferred Rectal Exam: deferred - Genitourinary Female genitourinary: deferred - Psychiatric Psychiatric: cooperative - Labs CBC & Chem 7: 12/08/21 04:09 12/09/21 04:51 Medications & Allergies - Medications Allergies/Adverse Reactions: Allergies No Known Allergies Allergy (Verified 10/20/21 09:17) Home Medications: Home Medications Medication Instructions Recorded Confirmed Last Taken Type Apixaban [Eliquis] 2.5 mg PO Q12HR #60 tab 09/01/21 12/04/21 Unknown Rx AtorvaSTATin [Lipitor] 40 mg PO DAILY 09/01/21 12/04/21 08/31/21 History 1 tab Clopidogrel [Plavix] 75 mg PO QDAY #90 tablet 09/01/21 12/04/21 Unknown Rx Gabapentin 100 mg PO BID 09/01/21 12/04/21 08/31/21 History 2 tabs Pantoprazole [Protonix] 40 mg PO QDAY #90 tablet 09/01/21 12/04/21 Unknown Rx amLODIPine 5 mg PO DAILY 09/01/21 12/04/21 08/31/21 History 1 tab carvediloL [Coreg] 25 mg PO BID 09/01/21 12/04/21 08/31/21 History 2 tabs cilostazoL [Pletal] 50 mg PO BID 09/01/21 12/04/21 08/31/21 History 2 tabs traZODone [Desyrel] 100 mg PO QHS 09/01/21 12/04/21 08/31/21 History 1 tab Venlafaxine [Effexor] 75 mg PO DAILY 11/02/21 12/04/21 Unknown History Active Medications: Generic Name Dose Route Start Last Admin Trade Name Freq PRN Reason Stop Dose Admin Acetaminophen 650 mg 11/30/21 19:24 12/04/21 22:58 Acetaminophen 325 Mg Tab PO 650 mg Q4H PRN Administration Pain MILD(1-3)/Fever >100.5/GONZALEZ Apixaban 2.5 mg 12/05/21 10:00 12/10/21 09:41 Apixaban 2.5 Mg Tab PO 2.5 mg Q12HR SRAVAN Administration Protocol Aspirin 81 mg 12/04/21 14:00 12/10/21 09:39 Aspirin Ec 81 Mg Tab PO 81 mg QDAY SRAVAN Administration Cilostazol 50 mg 12/01/21 22:00 12/10/21 09:40 Cilostazol 100 Mg Tab PO 50 mg BID SRAVAN Administration Docusate Sodium 100 mg 12/01/21 22:00 12/10/21 09:40 Docusate Sodium 100 Mg Cap PO 100 mg BID SRAVAN Administration Gabapentin 100 mg 12/01/21 22:00 12/10/21 09:40 Gabapentin 100 Mg Cap PO 100 mg BID SRAVAN Administration Hydromorphone HCl 0.5 mg 12/01/21 10:42 12/10/21 09:38 Hydromorphone 1 Mg/1 Ml Inj IV 0.5 mg Q4H PRN Administration Pain , Severe (7-10) Cefepime HCl 2 gm in 100 mls @ 200 mls/hr 12/01/21 10:00 12/10/21 09:53 Cefepime/Ns 2 Gm/100 Ml IV 12/13/21 22:29 200 mls/hr Q12H SRAVAN Administration Protocol Vancomycin HCl 750 mg/ Sodium 265 mls @ 166.667 mls/hr 12/07/21 11:00 00:00 Chloride IV 12/14/21 00:36 166.667 mls/hr Q12H SRAVAN Administration Ondansetron HCl 4 mg 11/30/21 19:24 12/04/21 22:52 Ondansetron 4 Mg/2 Ml Inj IV 4 mg Q8H PRN Administration Nausea And Vomiting Oxycodone/Acetaminophen 2 tab 12/02/21 11:44 12/10/21 03:02 Oxycodone /Acetaminophen 5-325mg Tab PO 2 tab Q8H PRN Administration Pain, Moderate (4-6) Pantoprazole Sodium 40 mg 12/01/21 20:00 12/10/21 09:40 Pantoprazole 40 Mg Tab PO 40 mg QDAY SRAVAN Administration Sodium Chloride 10 ml 11/30/21 22:00 12/10/21 09:42 Sodium Chloride 0.9% 10 Ml Flush Syringe IV 10 ml BID SRAVAN Administration Sodium Chloride 10 ml 11/30/21 19:24 12/09/21 05:02 Sodium Chloride 0.9% 10 Ml Flush Syringe IV 10 ml PRN PRN Administration LINE FLUSH Trazodone HCl 100 mg 12/01/21 22:00 12/09/21 21:45 Trazodone 100 Mg Tab PO 100 mg QHS SRAVAN Administration Venlafaxine HCl 75 mg 12/01/21 20:00 12/09/21 11:02 Venlafaxine 75 Mg Tab PO 75 mg DAILY SRAVAN Administration HEART Score - HEART Score Troponin: Troponin T 0.119 ng/mL (0.00-0.029) H* 11/30/21 15:56
[2021-12-10] MEDS: VENLAFAXINE 75 MG TAB PO SCH (11:28)
[2021-12-10] MEDS: VANCOMYCIN 750 MG in SODIUM CHLORIDE 0.9% 250ML 250 ML IV SCH ×3 (14:01→23:48)
[2021-12-10] MEDS: traZODone 100 MG TAB PO SCH (21:57)
[2021-12-11] MEDS: oxyCODONE /ACETAMINOPHEN 5-325MG TAB PO PRN ×3 (02:41→21:57)
[2021-12-11] MEDS: HYDROmorphone 1 MG/1 ML INJ IV PRN ×2 (07:38→15:57)
[2021-12-11] MEDS: CILOSTAZOL 100 MG TAB PO SCH ×2 (10:32→21:59)
[2021-12-11] MEDS: APIXABAN 2.5 MG TAB PO SCH ×2 (10:33→22:00)
[2021-12-11] MEDS: GABAPENTIN 100 MG CAP PO SCH ×2 (10:33→22:00)
[2021-12-11] MEDS: DOCUSATE SODIUM 100 MG CAP PO SCH ×2 (10:33→22:01)
[2021-12-11] MEDS: PANTOPRAZOLE 40 MG TAB PO SCH (10:33)
[2021-12-11] MEDS: VENLAFAXINE 75 MG TAB PO SCH (10:34)
[2021-12-11] MEDS: ASPIRIN EC 81 MG TAB PO SCH (10:34)
[2021-12-11] MEDS: VANCOMYCIN 750 MG in SODIUM CHLORIDE 0.9% 250ML 250 ML IV SCH ×2 (11:19→22:57)
[2021-12-11] MEDS: CEFEPIME/NS 2 GM/100 ML 2 GM/100 ML BAG IV SCH ×2 (11:19→21:56)
[2021-12-11] MEDS: ONDANSETRON 4 MG/2 ML INJ IV PRN (11:19)
--- NOTE | 2021-12-11 12:01 | Discharge Summary ---
Providers - Providers Date of Admission: 11/30/21 19:24 Attending physician: ARNOLD WELCH MD 11/30/21 19:36 Consult to Physician [CONS] Routine Comment: Consulting Provider: JUDITH SOUZA Physician Instructions: Reason For Exam: sepsis 11/30/21 19:37 Consult to Physician [CONS] Routine Comment: Consulting Provider: RHINA MURRAY Physician Instructions: Reason For Exam: PAD, LLE fasciotomy 12/01/21 04:50 Consult to Wound/ET Nurse [CONS] Routine Reason For Exam: wound eval, BLE 12/01/21 13:36 Occupational Therapy Evaluate and Treat [CONS] Routine Comment: Reason For Exam: Debility Physical Therapy Evaluation and Treat [CONS] Routine Comment: Reason For Exam: Debility 12/06/21 12:58 Consult to Dietitian/Nutrition [CONS] Routine Physician Instructions: Reason For Exam: Reason for Consult: Malnutrition 12/11/21 10:08 Consult to Wound/ET Nurse [CONS] Stat Reason For Exam: NEED WOUND VAC CHANGED TODAY SO PT CAN GO [facility]|E Primary care physician: YARA NAVA Hospitalization Reason for admission: SEPSIS Condition: Stable Hospital course: This is a 56-year-old female with severe PVD, CAD, HTN, HLD, anemia, EtOH and tobacco abuse who is s/p left femoral to below the knee popliteal artery bypass complicated by compartment syndrome s/p fasciotomy and right leg revascularization who was discharged to SNF after almost 3 week stay via EMS for altered mental status and was hypoentive in ED despite fluid resuscitation was eventually started on Levophed with a placement of central line. Patient was also anemic with a hemoglobin of 6.2 and 1 unit PRBC was transfused. She also had leukocytosis, acute kidney injury, elevated troponin and purulent drainage from wounds. Patient was admitted to the hospital service with consult to vascular surgery, ID and CCM with Sepsis. Hospital Course to Date: 12/01: Additional LR boluses, KCL 40 PO, prn diludid given for pain. Wean levophed as tolerated. 12/02: Adjustment to pain regimen, CTA pelvis and lower extremities with contrast obtained. Phosphorus and magnesium repleted 12/03: No vascular interventions till Saturday/Saturday. Pain better controlled. No acute events overnight. Transfer to [facility] 12/04: OR today for surgery by IR. Am labs ordered. 12/05/21-patient is seen at bedside. Patient alert and oriented. V/S stable. She is s/p excision of Infected Left Femoral to Below-Knee Popliteal Artery Bypass Graft-done 12/04/21. Wound VAC Placement left groin. patient reports pain left. Unable to feel left pedal pulse with doppler. patient's nurse at bedside at the time of assessment. I spoke to Dr Murray-vascular surgeon-he agreed to come and re-assess pt. 12/06: Remains afebrile and hemodynamicaly stable. Vascular surgery recommendations noted. Plan to discharge back to subacute rehab when okayed by ID, awaiting antibiotics recommendations. 12/07: RUTH overnight. Vascular Surg and ID recommendations noted. PT recommends subacute rehab, however patient refused subacute rehab and requested to go home with [facility]. Thorough discussion with patient at the bedside, discussing risks and potential worsening of condition without proper care and supervision, especially since she lives alone at home. Patient verbalized understanding of the info provided but still refused subacute rehab and was adamant to be discharge home. device processing engineer to switch patient to a home wound VAC. Plan for possible discharge home tomorrow with [facility] and home wound care. Case management to arrange. 12/08: RUTH overnight. Awaiting home wound vac supplies, per case management supplies will be delivered tomorrow. Continue current supportive measures. Plan for possible discharge tomorrow once wound vac supplies is available and wound vac is bridge by honing machine operator production. 12/09: Still waiting on wound vac supplies and wound Vac bridge. Discharge postpone for possibly Saturday. D/w patient at the bedside. Continue current supportive care and physical therapy. 12/10: Patient continues to insist that she wants to go home rather than go to subacute rehab which is recommended. She understands that this is not the optimal discharge plan as her wound needs adequate care. However she remains in the hospital as supplies for wound VAC is limiting her discharge Per IR/vascular surgeon team " Patient was supposed to have her wound VAC on the middle and lower surgical sites placed on , wound nurse did not have appropriate supplies but noted that she would return on Saturday. This did not happen. [facility] is bringing by a canister today for the patient's home wound VAC. Hopefully, they will bring enough supplies to place wound vacs. However, would anticipate that the patient may continue her hospitalization until Saturday..... Her foot is warm and perfused with faintly palpable pulses. Patient with reperfusion edema. Wet-to-dry dressing changes on the inferior and middle surgical sites, wound VAC in the groin." On discharge per ID patient will be placed on Levaquin. 12/11: Patient seen and examined no new complaints. Still with mild swelling posterior to site of wound. Discussed with nursing staff and administration wound VAC to be placed today and can be discharged home again reiterated to the patient that a usp facility is the best option but she is still adamant about going home. Also placed on Levaquin and recommended follow-up with ID vascular and her primary care physician she verbalized understanding. Home health is being arranged for her also. Additional 25 minutes of counseling provided on EtOH use and smoking cessation she verbalized understanding. She will be discharged with nicotine patches. Assessment and Plan: Septic shock (POA), leukocytosis(improved) -Presented with leukocytosis, acute kidney injury, purulent drainage from leg wounds -Infectious disease consulted, appreciate recommendations -Antibiotic therapy with cefepime and vancomycin -WOCN consulted for wound care -f/u blood culture -Monitor WBC and temperature curve -Per ID: Okay to discharge with Levaquin 750 mg every 24 hours to complete 7 further days Severe PVD s/p left femoral to below-knee popliteal artery bypass with fasciotomy, right lower extremity vascularization -Presented with Presented with leukocytosis, and purulent drainage from leg wo unds -CTA BLE shows air within the left femoral to popliteal artery bypass graft as well as in fluid collections along the graft. 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 -LLE wound vac in placed, no s/s of any complications noted -Continue ASA,Eliquis, Pletal, and gabapentin -Vascular checks per protocol -Continue wound care per Vascular Surgery -Wound Care consulted Acute Anemia -Presented with low H&H, s/p 5units of PRBCs -H&H stable this am -Continue to monitor for signs of bleeding -Transfuse for hgb less than 7 Neuro: h/o CVA, Depression, EtOH abuse -Reorientation as needed -Maintain sleep-wake cycle -As needed analgesia -Resumed home meds Cardiac: Hypertension -Presented with hypotension most likelu due to sepsis required vasopressors -BP stable now -Continue Blood pressure monitoring per protocol -Maintain SBP less than 120 Nicotine Dependence -Per patient last cigarettes was a week ago -Smoking cessation education provided, patient voiced understanding and agreed with the info provided -Admit that quitting is hard and she still having urges, Nicotine patch ordered GI: Moderate Protein calorie malnutrition -Regular diet with nutritional supplementation -Nutrition consulted -BR: colace : Acute kidney injury secondary to vasomotor nephropathy, Hypokalemia(resolved) -Renal function back to baseline -Monitor intake and output -Renally dose medications -Avoid nephrotoxic medications -Trend BMP Disposition: 03 ALF FACILITY Final Discharge Diagnosis (Prints w/discharge instructions): Septic shock (POA), leukocytosis(improved). Severe PVD s/p left femoral to below-knee popliteal artery bypass with fasciotomy, right lower extremity vascularization Time spent for discharge: 35 MINS Core Measure Documentation - Palliative Care Palliative Care/ Comfort Measures: Not Applicable - Core Measures Any of the following diagnoses?: none Exam - Physical Exam Narrative exam: - Physical exam Narrative exam: General appearance: Present: no acute distress, cachectic - EENT Eyes: Present: PERRL, EOM intact ENT: hearing intact - Neck Neck: Present: normal ROM - Respiratory Respiratory effort: normal Respiratory: bilateral: diminished - Cardiovascular Rhythm: regular Heart Sounds: Present: S1 & S2 - Extremities Extremities: no ischemia, pulses intact, pulses symmetrical, abnormal (LLE clean and intact dressing with Wound vac. No complications noted) Extremity abnormal: edema - Peripheral Assessment Left Lower Extremity Edema Type: Pitting Edema Degree: 2+ Capillary Refill: < 3 seconds Skin Temperature: Warm Peripheral Pulses: abnormal (LLE pulses appreciated with a doppler) - Abdominal General gastrointestinal: soft, non-distended, normal bowel sounds - Integumentary Integumentary: Present: warm, dry - Psychiatric Psychiatric: appropriate mood/affect, cooperative - Neurologic Neurologic: moves all extremities (LLE with limited ROM) - Allied Health Allied health notes reviewed: nursing, case management - Constitutional Vitals: Temp Pulse Resp BP Pulse Ox 97.8 F 86 18 127/75 99 12/10/21 11:30 12/10/21 11:30 12/11/21 03:41 12/10/21 11:30 12/11/21 00:00 Plan Activity: advance as tolerated, fall precautions Diet: low fat Wound: change dressing, per your surgeon's advice, per wound nurse instructions Special Instructions: smoking cessation, other (MUST QUIT ETOH USE) Follow up with: YARA NAVA MD [Primary Care Provider] - 7 Days QUITA SHANE MD [Staff Physician] - 7 Days PAYAL SERRANO MD [Staff Physician] - 7 Days Prescriptions: Docusate Sodium [Colace CAP] 100 mg PO BID #60 capsule Aspirin EC [Halfprin EC] 81 mg PO QDAY #30 tablet levoFLOXacin [Levaquin] 750 mg PO QDAY #7 tablet Clopidogrel [Plavix] 75 mg PO QDAY #90 tablet cilostazoL [Pletal] 50 mg PO BID #60 tab traMADoL [Ultram] 50 mg PO Q6HR PRN #20 tablet PRN Reason: Pain
--- NOTE | 2021-12-11 17:09 | Progress Note ---
Assessment and Plan Awaiting wound VAC parts for home wound VAC for discharge home. Recommended acute rehab. Will need AFOs bilaterally. Placed AFO consult for PT. Will need heel protector boots in the interim. Subjective Date of service: 12/11/21 Principal diagnosis: PVD with infected graft Interval history: Difficult to palpate pulses due to edema. Weakly palpable PT pulses. Warm and well perfused legs. Bilateral foot drop. Wound care is actively bridging her left leg wound vacs. Incisions look healthy with healthy tissue visualized. Left groin already has wound VAC on it. Objective - Constitutional General appearance: Present: no acute distress - EENT Eyes: EOM intact ENT: hearing intact - Respiratory Respiratory effort: normal Extremities: normal temperature, normal color, abnormal (Weakly palpable posterior tibial pulses, edematous lower extremities,) - Gastrointestinal General gastrointestinal: Present: soft, non-tender - Psychiatric Psychiatric: appropriate mood/affect, cooperative - Labs CBC & Chem 7: 12/08/21 04:09 12/09/21 04:51 Medications & Allergies - Medications Allergies/Adverse Reactions: Allergies No Known Allergies Allergy (Verified 10/20/21 09:17) Home Medications: Home Medications Medication Instructions Recorded Confirmed Last Taken Type Apixaban [Eliquis] 2.5 mg PO Q12HR #60 tab 09/01/21 12/11/21 12/05/21 Rx AtorvaSTATin [Lipitor] 40 mg PO DAILY 09/01/21 12/11/21 12/05/21 History Gabapentin 100 mg PO BID 09/01/21 12/11/21 12/05/21 History Pantoprazole [Protonix TAB] 40 mg PO QDAY #90 tablet 09/01/21 12/11/21 12/05/21 Rx carvediloL [Coreg] 25 mg PO BID 09/01/21 12/11/21 12/05/21 History traZODone [Desyrel] 100 mg PO QHS 09/01/21 12/11/21 12/05/21 History Venlafaxine [Effexor] 75 mg PO DAILY 11/02/21 12/11/21 12/05/21 History Aspirin EC [Halfprin EC] 81 mg PO QDAY #30 tablet 12/11/21 Unknown Rx Clopidogrel [Plavix] 75 mg PO QDAY #90 tablet 12/11/21 Unknown Rx Docusate Sodium [Colace CAP] 100 mg PO BID #60 capsule 12/11/21 Unknown Rx cilostazoL [Pletal] 50 mg PO BID #60 tab 12/11/21 Unknown Rx levoFLOXacin [Levaquin] 750 mg PO QDAY #7 tablet 12/11/21 Unknown Rx traMADoL [Ultram] 50 mg PO Q6HR PRN #20 tablet 12/11/21 Unknown Rx Active Medications: Generic Name Dose Route Start Last Admin Trade Name Freq PRN Reason Stop Dose Admin Acetaminophen 650 mg 11/30/21 19:24 12/04/21 22:58 Acetaminophen 325 Mg Tab PO 650 mg Q4H PRN Administration Pain MILD(1-3)/Fever >100.5/GONZALEZ Apixaban 2.5 mg 12/05/21 10:00 12/11/21 10:33 Apixaban 2.5 Mg Tab PO 2.5 mg Q12HR SRAVAN Administration Protocol Aspirin 81 mg 12/04/21 14:00 12/11/21 10:34 Aspirin Ec 81 Mg Tab PO 81 mg QDAY SRAVAN Administration Cilostazol 50 mg 12/01/21 22:00 12/11/21 10:32 Cilostazol 100 Mg Tab PO 50 mg BID SRAVAN Administration Docusate Sodium 100 mg 12/01/21 22:00 12/11/21 10:33 Docusate Sodium 100 Mg Cap PO 100 mg BID SRAVAN Administration Gabapentin 100 mg 12/01/21 22:00 12/11/21 10:33 Gabapentin 100 Mg Cap PO 100 mg BID SRAVAN Administration Hydromorphone HCl 0.5 mg 12/01/21 10:42 12/11/21 15:57 Hydromorphone 1 Mg/1 Ml Inj IV 0.5 mg Q4H PRN Administration Pain , Severe (7-10) Cefepime HCl 2 gm in 100 mls @ 200 mls/hr 12/01/21 10:00 12/11/21 11:19 Cefepime/Ns 2 Gm/100 Ml IV 12/13/21 22:29 200 mls/hr Q12H SRAVAN Administration Protocol Vancomycin HCl 750 mg/ Sodium 265 mls @ 166.667 mls/hr 12/07/21 11:00 12/11/21 11:19 Chloride IV 12/14/21 00:36 166.667 mls/hr Q12H SRAVAN Administration Ondansetron HCl 4 mg 11/30/21 19:24 12/11/21 11:19 Ondansetron 4 Mg/2 Ml Inj IV 4 mg Q8H PRN Administration Nausea And Vomiting Oxycodone/Acetaminophen 2 tab 12/02/21 11:44 12/11/21 11:17 Oxycodone /Acetaminophen 5-325mg Tab PO 2 tab Q8H PRN Administration Pain, Moderate (4-6) Pantoprazole Sodium 40 mg 12/01/21 20:00 12/11/21 10:33 Pantoprazole 40 Mg Tab PO 40 mg QDAY SRAVAN Administration Sodium Chloride 10 ml 11/30/21 22:00 12/11/21 10:34 Sodium Chloride 0.9% 10 Ml Flush Syringe IV 10 ml BID SRAVAN Administration Sodium Chloride 10 ml 11/30/21 19:24 12/09/21 05:02 Sodium Chloride 0.9% 10 Ml Flush Syringe IV 10 ml PRN PRN Administration LINE FLUSH Trazodone HCl 100 mg 12/01/21 22:00 12/10/21 21:57 Trazodone 100 Mg Tab PO 100 mg QHS SRAVAN Administration Venlafaxine HCl 75 mg 12/01/21 20:00 12/11/21 10:34 Venlafaxine 75 Mg Tab PO 75 mg DAILY SRAVAN Administration HEART Score - HEART Score Troponin: Troponin T 0.119 ng/mL (0.00-0.029) H* 11/30/21 15:56
--- NOTE | 2021-12-11 19:10 | Progress Note ---
Assessment and Plan Cultures: 11/30/2021 blood culture: In process Wound culture: GNR A/P: 56/F with peripheral vascular disease, tobacco abuse, peripheral neuropathy, prior CVA, recent admission for critical limb ischemia of LLE requiring L INFORMATION WRITER to popliteal bypass complicated by compartment syndrome requiring 4 compartment fasciotomy, woundVAC in groin region was discharged to rehab and sent home about 2 days prior to admission was admitted this time with AMS and weakness: #Septic shock: Chest x-ray without pneumonia, UA without any pyuria. Source could be wound infection causing a transient bacteremia. Follow-up blood cultures. #Peripheral vascular disease, recent revascularization of LLE, compartment syndrome requiring fasciotomy #Acute anemia #SUSANA: Creatinine improving. Recs: Continue empiric cefepime, vancomycin Okay to discharge with Levaquin 750 mg every 24 hours to complete 7 further days Discussed with Dr. Suarez ID will sign off. please call with questions. Shannon Blake MD [facility] ([facility]) O: [phone] F: [phone] Subjective Date of service: 12/11/21 Principal diagnosis: PVD with infected graft Interval history: Afebrile, normal white count. Repeat blood cultures negative. Objective - Exam Narrative Exam: Physical Exam: Constitutional: Alert, cooperative. No acute distress Head, Ears, Nose: Normocephalic, atraumatic. Eyes: Conjunctivae/corneas clear. No icterus. No ptosis. Neck: Supple, no meningeal signs Cardiovascular: S1, S2 + Respiratory: Good air entry, clear to auscultation bilaterally GI: Soft, non-tender; bowel sounds normal. No peritoneal signs Musculoskeletal: LLE with dressing, left groin with wound VAC Skin: No rash or abscess Hem/Lymphatic: No palpable cervical or supraclavicular nodes. No lymphangitis Psych: Mood ok. Affect normal Neurological: Awake, alert, oriented. No gross abnormality - Constitutional Vitals: Vital Signs Temp Pulse Resp BP Pulse Ox 97.8 F 86 18 127/75 98 12/10/21 11:30 12/10/21 11:30 12/11/21 03:41 12/10/21 11:30 12/11/21 15:11 - Labs CBC & Chem 7: 12/08/21 04:09 12/09/21 04:51
[2021-12-11] MEDS: traZODone 100 MG TAB PO SCH (22:00)
[2021-12-11] MEDS ORDERED: hydrALAZINE 20 MG/1 ML INJ IV PRN (23:15)
[2021-12-12] MEDS: oxyCODONE /ACETAMINOPHEN 5-325MG TAB PO PRN (06:06)
--- NOTE | 2021-12-12 08:16 | Progress Note ---
Assessment and Plan Assessment and plan: Hospital course: This is a 56-year-old female with severe PVD, CAD, HTN, HLD, anemia, EtOH and tobacco abuse who is s/p left femoral to below the knee popliteal artery bypass complicated by compartment syndrome s/p fasciotomy and right leg revascularization who was discharged to SNF after almost 3 week stay via EMS for altered mental status and was hypoentive in ED despite fluid resuscitation was eventually started on Levophed with a placement of central line. Patient was also anemic with a hemoglobin of 6.2 and 1 unit PRBC was transfused. She also had leukocytosis, acute kidney injury, elevated troponin and purulent drainage from wounds. Patient was admitted to the hospital service with consult to vascular surgery, ID and CCM with Sepsis. Hospital Course to Date: 12/01: Additional LR boluses, KCL 40 PO, prn diludid given for pain. Wean levophed as tolerated. 12/02: Adjustment to pain regimen, CTA pelvis and lower extremities with contrast obtained. Phosphorus and magnesium repleted 12/03: No vascular interventions till Saturday/Saturday. Pain better controlled. No acute events overnight. Transfer to [facility] 12/04: OR today for surgery by IR. Am labs ordered. 12/05/21-patient is seen at bedside. Patient alert and oriented. V/S stable. She is s/p excision of Infected Left Femoral to Below-Knee Popliteal Artery Bypass Graft-done 12/04/21. Wound VAC Placement left groin. patient reports pain left. Unable to feel left pedal pulse with doppler. patient's nurse at bedside at the time of assessment. I spoke to Dr Edge-vascular surgeon-he agreed to come and re-assess pt. 12/06: Remains afebrile and hemodynamicaly stable. Vascular surgery recommendations noted. Plan to discharge back to subacute rehab when okayed by ID, awaiting antibiotics recommendations. 12/07: RUTH overnight. Vascular Surg and ID recommendations noted. PT recommends subacute rehab, however patient refused subacute rehab and requested to go home with [facility]. Thorough discussion with patient at the bedside, discussing risks and potential worsening of condition without proper care and supervision, especially since she lives alone at home. Patient verbalized understanding of the info prov ided but still refused subacute rehab and was adamant to be discharge home. cake icer and packer to switch patient to a home wound VAC. Plan for possible discharge home tomorrow with [facility] and home wound care. Case management to arrange. 12/08: RUTH overnight. Awaiting home wound vac supplies, per case management supplies will be delivered tomorrow. Continue current supportive measures. Plan for possible discharge tomorrow once wound vac supplies is available and wound vac is bridge by product development actuary. 12/09: Still waiting on wound vac supplies and wound Vac bridge. Discharge postpone for possibly Saturday. D/w patient at the bedside. Continue current supportive care and physical therapy. 12/10: Patient continues to insist that she wants to go home rather than go to subacute rehab which is recommended. She understands that this is not the optimal discharge plan as her wound needs adequate care. However she remains in the hospital as supplies for wound VAC is limiting her discharge Per IR/vascular surgeon team " Patient was supposed to have her wound VAC on the middle and lower surgical sites placed on , wound nurse did not have appropriate supplies but noted that she would return on Saturday. This did not happen. ON LICENSE OF [facility] is bringing by a canister today for the patient's home wound VAC. Hopefully, they will bring enough supplies to place wound vacs. However, would anticipate that the patient may continue her hospitalization until Saturday..... Her foot is warm and perfused with faintly palpable pulses. Patient with reperfusion edema. Wet-to-dry dressing changes on the inferior and middle surgical sites, wound VAC in the groin." On discharge per ID patient will be placed on Levaquin. 12/11: Patient seen and examined no new complaints. Still with mild swelling posterior to site of wound. Discussed with nursing staff and administration wound VAC to be placed today and can be discharged home again reiterated to the patient that a care home facility is the best option but she is still adamant about going home. Also placed on Levaquin and recommended follow-up with ID vascular and her primary care physician she verbalized understanding. Home health is being arranged for her also. Additional 25 minutes of counseling provided on EtOH use and smoking cessation she verbalized understanding. She will be discharged with nicotine patches. 12/12: D/c placed. CM ensuring patient has wound vac on d/c. Assessment and Plan: Septic shock (POA), leukocytosis(improved) -Presented with leukocytosis, acute kidney injury, purulent drainage from leg wounds -Infectious disease consulted, appreciate recommendations -Antibiotic therapy with cefepime and vancomycin -WOCN consulted for wound care -f/u blood culture -Monitor WBC and temperature curve -Per ID: Okay to discharge with Levaquin 750 mg every 24 hours to complete 7 further days Severe PVD s/p left femoral to below-knee popliteal artery bypass with fasciotom y, right lower extremity vascularization -Presented with Presented with leukocytosis, and purulent drainage from leg wounds -CTA BLE shows air within the left femoral to popliteal artery bypass graft as well as in fluid collections along the graft. 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 -LLE wound vac in placed, no s/s of any complications noted -Continue ASA,Eliquis, Pletal, and gabapentin -Vascular checks per protocol -Continue wound care per Vascular Surgery -Wound Care consulted Acute Anemia -Presented with low H&H, s/p 5units of PRBCs -H&H stable this am -Continue to monitor for signs of bleeding -Transfuse for hgb less than 7 Neuro: h/o CVA, Depression, EtOH abuse -Reorientation as needed -Maintain sleep-wake cycle -As needed analgesia -Resumed home meds Cardiac: Hypertension -Presented with hypotension most likelu due to sepsis required vasopressors -BP stable now -Continue Blood pressure monitoring per protocol -Maintain SBP less than 120 Nicotine Dependence -Per patient last cigarettes was a week ago -Smoking cessation education provided, patient voiced understanding and agreed with the info provided -Admit that quitting is hard and she still having urges, Nicotine patch ordered GI: Moderate Protein calorie malnutrition -Regular diet with nutritional supplementation -Nutrition consulted -BR: kristy : Acute kidney injury secondary to vasomotor nephropathy, Hypoka lemia(resolved) -Renal function back to baseline -Monitor intake and output -Renally dose medications -Avoid nephrotoxic medications -Trend BMP Disposition Plan: d/c home Total Time Spent with Patient (Minutes): 35 History Interval history: No acute complaints. Hospitalist Physical - Physical exam Narrative exam: General appearance: Present: no acute distress, cachectic - EENT Eyes: Present: PERRL, EOM intact ENT: hearing intact - Neck Neck: Present: normal ROM - Respiratory Respiratory effort: normal Respiratory: bilateral: diminished - Cardiovascular Rhythm: regular Heart Sounds: Present: S1 & S2 - Extremities Extremities: no ischemia, pulses intact, pulses symmetrical, abnormal (LLE clean and intact dressing with Wound vac. No complications noted) Extremity abnormal: edema - Peripheral Assessment Left Lower Extremity Edema Type: Pitting Edema Degree: 2+ Capillary Refill: < 3 seconds Skin Temperature: Warm Peripheral Pulses: abnormal (LLE pulses appreciated with a doppler) - Abdominal General gastrointestinal: soft, non-distended, normal bowel sounds - Integumentary Integumentary: Present: warm, dry - Psychiatric Psychiatric: appropriate mood/affect, cooperative - Neurologic Neurologic: moves all extremities (LLE with limited ROM) - Allied Health Allied health notes reviewed: nursing, case management - Constitutional Vitals: Temp Pulse Resp BP Pulse Ox 97.8 F 83 17 142/67 97 12/12/21 06:11 12/12/21 06:11 12/12/21 06:11 12/12/21 06:11 12/12/21 06:11 General appearance: Present: no acute distress HEART Score - HEART Score Troponin: Troponin T 0.119 ng/mL (0.00-0.029) H* 11/30/21 15:56 Results - Labs CBC & Chem 7: 12/08/21 04:09 12/09/21 04:51 Labs: Laboratory Last Values WBC 8.6 K/mm3 (4.5-11.0) 12/08/21 04:09 RBC 2.95 M/mm3 (3.65-5.03) L 12/08/21 04:09 Hgb 7.9 gm/dl (10.1-14.3) L 12/08/21 04:09 Hct 24.1 % (30.3-42.9) L 12/08/21 04:09 MCV 82 fl (79-97) 12/08/21 04:09 MCH 27 pg (28-32) L 12/08/21 04:09 MCHC 33 % (30-34) 12/08/21 04:09 RDW 18.6 % (13.2-15.2) H 12/08/21 04:09 Plt Count 406 K/mm3 (140-440) 12/08/21 04:09 Lymph % (Auto) 13.6 % (13.4-35.0) 12/06/21 07:15 Blanco % (Auto) 10.0 % (0.0-7.3) H 12/06/21 07:15 Eos % (Auto) 4.7 % (0.0-4.3) H 12/06/21 07:15 Baso % (Auto) 1.2 % (0.0-1.8) 12/06/21 07:15 Lymph # (Auto) 1.2 K/mm3 (1.2-5.4) 12/06/21 07:15 Blanco # (Auto) 0.9 K/mm3 (0.0-0.8) H 12/06/21 07:15 Eos # (Auto) 0.4 K/mm3 (0.0-0.4) 12/06/21 07:15 Baso # (Auto) 0.1 K/mm3 (0.0-0.1) 12/06/21 07:15 Add Manual Diff Complete 12/01/21 04:33 Total Counted 100 12/01/21 04:33 Seg Neutrophils % 70.5 % (40.0-70.0) H 12/06/21 07:15 Seg Neuts % (Manual) 82.0 % (40.0-70.0) H 12/01/21 04:33 Band Neutrophils % 8.0 % 12/01/21 04:33 Lymphocytes % (Manual) 5.0 % (13.4-35.0) L 12/01/21 04:33 Reactive Lymphs % (Man) 0 % 12/01/21 04:33 Monocytes % (Manual) 4.0 % (0.0-7.3) 12/01/21 04:33 Eosinophils % (Manual) 0 % (0.0-4.3) 12/01/21 04:33 Basophils % (Manual) 0 % (0.0-1.8) 12/01/21 04:33 Metamyelocytes % 1.0 % 12/01/21 04:33 Myelocytes % 0 % 12/01/21 04:33 Promyelocytes % 0 % 12/01/21 04:33 Blast Cells % 0 % 12/01/21 04:33 Nucleated RBC % Not Reportable 12/01/21 04:33 Seg Neutrophils # 6.5 K/mm3 (1.8-7.7) 12/06/21 07:15 Seg Neutrophils # Man 17.0 K/mm3 (1.8-7.7) H 12/01/21 04:33 Band Neutrophils # 1.7 K/mm3 12/01/21 04:33 Lymphocytes # (Manual) 1.0 K/mm3 (1.2-5.4) L 12/01/21 04:33 Abs React Lymphs (Man) 0.0 K/mm3 12/01/21 04:33 Monocytes # (Manual) 0.8 K/mm3 (0.0-0.8) 12/01/21 04:33 Eosinophils # (Manual) 0.0 K/mm3 (0.0-0.4) 12/01/21 04:33 Basophils # (Manual) 0.0 K/mm3 (0.0-0.1) 12/01/21 04:33 Metamyelocytes # 0.2 K/mm3 12/01/21 04:33 Myelocytes # 0.0 K/mm3 12/01/21 04:33 Promyelocytes # 0.0 K/mm3 12/01/21 04:33 Blast Cells # 0.0 K/mm3 12/01/21 04:33 WBC Morphology Not Reportable 12/01/21 04:33 Hypersegmented Neuts Not Reportable 12/01/21 04:33 Hyposegmented Neuts Not Reportable 12/01/21 04:33 Hypogranular Neuts Not Reportable 12/01/21 04:33 Smudge Cells Not Reportable 12/01/21 04:33 Toxic Granulation Not Reportable 12/01/21 04:33 Toxic Vacuolation Not Reportable 12/01/21 04:33 Dohle Bodies Not Reportable 12/01/21 04:33 Pelger-Huet Anomaly Not Reportable 12/01/21 04:33 Mary Rods Not Reportable 12/01/21 04:33 Platelet Estimate Consistent w auto 12/01/21 04:33 Clumped Platelets Not Reportable 12/01/21 04:33 Plt Clumps, EDTA Not Reportable 12/01/21 04:33 Large Platelets Not Reportable 12/01/21 04:33 Giant Platelets Not Reportable 12/01/21 04:33 Platelet Satelliting Not Reportable 12/01/21 04:33 Plt Morphology Comment Not Reportable 12/01/21 04:33 RBC Morphology Not Reportable 12/01/21 04:33 Dimorphic RBCs Not Reportable 12/01/21 04:33 Polychromasia Not Reportable 12/01/21 04:33 Hypochromasia 2+ 12/01/21 04:33 Poikilocytosis Few 12/01/21 04:33 Anisocytosis 1+ 12/01/21 04:33 Microcytosis 1+ 12/01/21 04:33 Macrocytosis Not Reportable 12/01/21 04:33 Spherocytes Not Reportable 12/01/21 04:33 Pappenheimer Bodies Not Reportable 12/01/21 04:33 Sickle Cells Not Reportable 12/01/21 04:33 Target Cells Not Reportable 12/01/21 04:33 Tear Drop Cells Not Reportable 12/01/21 04:33 Ovalocytes Few 12/01/21 04:33 Helmet Cells Not Reportable 12/01/21 04:33 Ybarra[place] Bodies Not Reportable 12/01/21 04:33 Davey Rings Not Reportable 12/01/21 04:33 [place] Cells Not Reportable 12/01/21 04:33 Bite Cells Not Reportable 12/01/21 04:33 Crenated Cell Not Reportable 12/01/21 04:33 Elliptocytes Rare 12/01/21 04:33 Acanthocytes (Spur) Not Reportable 12/01/21 04:33 Rouleaux Not Reportable 12/01/21 04:33 Hemoglobin C Crystals Not Reportable 12/01/21 04:33 Schistocytes Not Reportable 12/01/21 04:33 Malaria parasites Not Reportable 12/01/21 04:33 Kvng Bodies Not Reportable 12/01/21 04:33 Hem Pathologist Commnt No 12/01/21 04:33 PT 14.9 Sec. (12.2-14.9) 12/04/21 04:35 INR 1.05 (0.87-1.13) 12/04/21 04:35 APTT 43.1 Sec. (24.2-36.6) H 11/30/21 15:56 VBG pH 7.509 (7.320-7.420) H 11/30/21 15:57 Sodium 139 mmol/L (137-145) 12/09/21 04:51 Potassium 3.7 mmol/L (3.6-5.0) D 12/09/21 04:51 Chloride 104.9 mmol/L (98-107) 12/09/21 04:51 Carbon Dioxide 27 mmol/L (22-30) 12/09/21 04:51 Anion Gap 11 mmol/L 12/09/21 04:51 BUN 7 mg/dL (7-17) 12/09/21 04:51 Creatinine 0.5 mg/dL (0.6-1.2) L 12/09/21 04:51 Estimated GFR > 60 ml/min 12/09/21 04:51 BUN/Creatinine Ratio 14 % 12/09/21 04:51 Glucose 91 mg/dL (65-100) 12/09/21 04:51 Lactic Acid 1.20 mmol/L (0.7-2.0) 11/30/21 17:23 Calcium 7.6 mg/dL (8.4-10.2) L 12/09/21 04:51 Phosphorus 3.20 mg/dL (2.5-4.5) 12/05/21 13:43 Magnesium 1.80 mg/dL (1.7-2.3) 12/03/21 04:24 Total Bilirubin 0.30 mg/dL (0.1-1.2) 12/06/21 07:15 AST 14 units/L (5-40) 12/06/21 07:15 ALT 6 units/L (7-56) L 12/06/21 07:15 Alkaline Phosphatase 87 units/L (35-129) 12/06/21 07:15 Troponin T 0.119 ng/mL (0.00-0.029) H* 11/30/21 15:56 Total Protein 4.3 g/dL (6.3-8.2) L 12/06/21 07:15 Albumin 1.6 g/dL (3.9-5) L 12/06/21 07:15 Albumin/Globulin Ratio 0.6 % 12/06/21 07:15 Triglycerides 108 mg/dL (2-149) 11/30/21 15:56 Cholesterol 82 mg/dL (50-199) 11/30/21 15:56 LDL Cholesterol Direct 38 mg/dL (50-130) L 11/30/21 15:56 HDL Cholesterol 28 mg/dL (40-59) L 11/30/21 15:56 Cholesterol/HDL Ratio 2.92 % 11/30/21 15:56 TSH 1.870 mlU/mL (0.270-4.200) 11/30/21 15:57 Urine Color Yellow (Yellow) 11/30/21 02:50 Urine Turbidity Clear (Clear) 11/30/21 02:50 Urine pH 6.0 (5.0-7.0) 11/30/21 02:50 Ur Specific [place] 1.005 (1.003-1.030) 11/30/21 02:50 Urine Protein <15 mg/dl mg/dL (Negative) 11/30/21 02:50 Urine Glucose (UA) Neg mg/dL (Negative) 11/30/21 02:50 Urine Ketones Neg mg/dL (Negative) 11/30/21 02:50 Urine Blood Sm (Negative) 11/30/21 02:50 Urine Nitrite Neg (Negative) 11/30/21 02:50 Urine Bilirubin Neg (Negative) 11/30/21 02:50 Urine Urobilinogen < 2.0 mg/dL (<2.0) 11/30/21 02:50 Ur Leukocyte Esterase Neg (Negative) 11/30/21 02:50 Urine WBC (Auto) 2.0 /HPF (0.0-6.0) 11/30/21 02:50 Urine RBC (Auto) 2.0 /HPF (0.0-6.0) 11/30/21 02:50 U Epithel Cells (Auto) 1.0 /HPF (0-13.0) 11/30/21 02:50 Urine Bacteria (Auto) 1+ /HPF (Negative) 11/30/21 02:50 Urine Yeast (Budding) 1+ /HPF 11/30/21 02:50 Vancomycin Trough 18.8 ug/mL (5.0-20.0) 12/09/21 22:10 Blood Type O POSITIVE 12/03/21 14:07 Antibody Screen Negative 12/03/21 14:07 Crossmatch See Detail 12/03/21 14:07 Microbiology: Microbiology 12/04/21 17:46 Thigh - Left Surgical Culture - Preliminary Pseudomonas Aeruginosa Enterococcus Faecalis Victor/IV: Voiding Method External Female Catheter Active Medications - Current Medications Current Medications: Generic Name Dose Route Start Last Admin Trade Name Freq PRN Reason Stop Dose Admin Acetaminophen 650 mg 11/30/21 19:24 12/04/21 22:58 Acetaminophen 325 Mg Tab PO 650 mg Q4H PRN Administration Pain MILD(1-3)/Fever >100.5/[id number] Apixaban 2.5 mg 12/05/21 10:00 12/11/21 22:00 Apixaban 2.5 Mg Tab PO 2.5 mg Q12HR SRAVAN Administration Protocol Aspirin 81 mg 12/04/21 14:00 12/11/21 10:34 Aspirin Ec 81 Mg Tab PO 81 mg QDAY SRAVAN Administration Cilostazol 50 mg 12/01/21 22:00 12/11/21 21:59 Cilostazol 100 Mg Tab PO 50 mg BID SRAVAN Administration Docusate Sodium 100 mg 12/01/21 22:00 12/11/21 22:01 Docusate Sodium 100 Mg Cap PO 100 mg BID SRAVAN Administration Gabapentin 100 mg 12/01/21 22:00 12/11/21 22:00 Gabapentin 100 Mg Cap PO 100 mg BID SRAVAN Administration Hydralazine HCl 10 mg 12/11/21 23:15 12/12/21 00:44 Hydralazine 20 Mg/1 Ml Inj IV 10 mg Q6H PRN Administration Blood Pressure Hydromorphone HCl 0.5 mg 12/01/21 10:42 12/11/21 15:57 Hydromorphone 1 Mg/1 Ml Inj IV 0.5 mg Q4H PRN Administration Pain , Severe (7-10) Cefepime HCl 2 gm in 100 mls @ 200 mls/hr 12/01/21 10:00 12/11/21 21:56 Cefepime/Ns 2 Gm/100 Ml IV 12/13/21 22:29 200 mls/hr Q12H SRAVAN Administration Protocol Vancomycin HCl 750 mg/ Sodium 265 mls @ 166.667 mls/hr 12/07/21 11:00 12/11/21 22:57 Chloride IV 12/14/21 00:36 166.667 mls/hr Q12H SRAVAN Administration Ondansetron HCl 4 mg 11/30/21 19:24 12/11/21 11:19 Ondansetron 4 Mg/2 Ml Inj IV 4 mg Q8H PRN Administration Nausea And Vomiting Oxycodone/Acetaminophen 2 tab 12/02/21 11:44 12/12/21 06:06 Oxycodone /Acetaminophen 5-325mg Tab PO 2 tab Q8H PRN Administration Pain, Moderate (4-6) Pantoprazole Sodium 40 mg 12/01/21 20:00 12/11/21 10:33 Pantoprazole 40 Mg Tab PO 40 mg QDAY SRAVAN Administration Sodium Chloride 10 ml 11/30/21 22:00 12/11/21 21:59 Sodium Chloride 0.9% 10 Ml Flush Syringe IV 10 ml BID SRAVAN Administration Sodium Chloride 10 ml 11/30/21 19:24 12/09/21 05:02 Sodium Chloride 0.9% 10 Ml Flush Syringe IV 10 ml PRN PRN Administration LINE FLUSH Trazodone HCl 100 mg 12/01/21 22:00 12/11/21 22:00 Trazodone 100 Mg Tab PO 100 mg QHS SRAVAN Administration Venlafaxine HCl 75 mg 12/01/21 20:00 12/11/21 10:34 Venlafaxine 75 Mg Tab PO 75 mg DAILY SRAVAN Administration Nutrition/Malnutrition Assess - Dietary Evaluation Nutrition/Malnutrition Findings: Nutrition Notes Start: 12/05/21 15:54 Freq: Status: Active Protocol: Document 12/06/21 14:55 MERARI (Rec: 12/06/21 15:04 MERARI [id number]) Nutrition Notes Initial or Follow up Brief Note Current Diagnosis Acute Kidney Injury,Sepsis, Malnutrition Other Pertinent Diagnosis Metabolic Encephalopathy, PAD s/p Revascularization, PVD, L- LE Ischemia, .. Current Diet Regular Diet + D Suppl (since B 12/05). Height 5 ft 3 in Weight 47.3 kg [place] Body Weight (kg) 52.27 BMI 18.4 Weight change and time frame No body weight change reported in 1 day. Weight Status Underweight Subjective/Other Information RD consult for malnutrition assessment. No reports available on Pt's PO intake of meals at the time , will assess at F/U. Pt is on Room Air, O2 saturation @ 98%, according to Physical Assessmenty History notes. Percent of energy/protein needs met: Prescribed Regular Diet provides for energy/protein needs (2,289 Kcal/89 g) during LOS; additionally, Dietary Supplements will compensate for possible poor or insufficient PO intake of meals, and sopport wound healing processes with 320 Kcal and 32 g of protein. Minimum of two criteria Yes Energy Intake (non-severe) <75% Estimated Energy Requirement >7 days Interpretation of Weight Loss (severe) >5% in 1 month Fluid Accumulation Mild (non-severe) Reduced Senior Dentist Strength N/A (non-severe) Protein-Calorie Malnutrition Severe #2 Nutrition Diagnosis Increased nutrient needs ( specify in comment below) Comments: Protein to support wound healing processes. Diagnosis Progress(for reassessment Continues documentation) #1 Nutrition Diagnosis Malnutrition,Underweight Diagnosis Progress(for reassessment Continues documentation) Is patient on ventilator? No Is Patient Ambulatory and/or Out of Bed Yes REE-([facility]-ambulatory/OOB) [ 1328.769 [id number]] Calculation Used for Recommendations [facility] Additional Notes Protein: 1.25-1.5 g/Kg ABW; 59 -71 g/day. Fluids: 1 ml/Kcal, or as per MD. Nutrition Intervention Change Diet Order: Continue Regular Diet. Add Supplement/Snack (indicate name/kcal Start 8 fl oz Ensure High /protein ) Protein; BID. Provides kCal: 320 Provides Protein (gm) 32 Goal #1 Support, through dietary supplementation, wound healing processes during LOS. Goal #2 Compensate, through dietary supplementation, for possible poor or insufficient PO intake of meals during LOS. Follow-Up By: 12/12/21 Additional Comments Continue monitoring food tolerance, %PO intake of meals and ONS, and BM.
[2021-12-12] MEDS: CILOSTAZOL 100 MG TAB PO SCH (09:19)
[2021-12-12] MEDS: VENLAFAXINE 75 MG TAB PO SCH (09:19)
[2021-12-12] MEDS: PANTOPRAZOLE 40 MG TAB PO SCH (09:20)
[2021-12-12] MEDS: DOCUSATE SODIUM 100 MG CAP PO SCH (09:20)
[2021-12-12] MEDS: ASPIRIN EC 81 MG TAB PO SCH (09:20)
[2021-12-12] MEDS: APIXABAN 2.5 MG TAB PO SCH (09:20)
[2021-12-12] MEDS: GABAPENTIN 100 MG CAP PO SCH (09:20)
[2021-12-12 12:04] VITALS: BP 132/78
== END 2021-12-12 12:10 | disposition home health service (06) | DRG 853 ==
LOC: ED 15:34 → CC1 19:24 → IMCU 12-03 16:57 → 3A 12-09 19:44
PROVIDERS: ADMIT Internal Medicine; ATTEND Internal Medicine
PROC: 30233N1 Transfusion of Nonautologous Red Blood Cells into Peripheral Vein, Percutaneous Approach (ICD-10-PCS; 2021-11-30)
PROC: 05HM33Z Insertion of Infusion Device into Right Internal Jugular Vein, Percutaneous Approach (ICD-10-PCS; 2021-11-30)
PROC: B543ZZA Ultrasonography of Right Jugular Veins, Guidance (ICD-10-PCS; 2021-11-30)
PROC: 04BL0ZZ Excision of Left Femoral Artery, Open Approach (ICD-10-PCS; principal; 2021-12-04)
PROC: 041L0ZL Bypass Left Femoral Artery to Popliteal Artery, Open Approach (ICD-10-PCS; 2021-12-04)
DX: A41.9 Sepsis, unspecified organism (principal); R65.21 Severe sepsis with septic shock; G93.41 Metabolic encephalopathy; N17.0 Acute kidney failure with tubular necrosis; I21.4 Non-ST elevation (NSTEMI) myocardial infarction; Z68.1 Body mass index [BMI] 19.9 or less, adult; E44.0 Moderate protein-calorie malnutrition; E87.6 Hypokalemia; I73.9 Peripheral vascular disease, unspecified; D64.9 Anemia, unspecified; I10 Essential (primary) hypertension; F17.200 Nicotine dependence, unspecified, uncomplicated; I25.10 Atherosclerotic heart disease of native coronary artery without angina pectoris; E78.5 Hyperlipidemia, unspecified
CPT/HCPCS: 36415; 71045; 80048; 80053; 80061; 80202; 81001; 82140; 82805; 83735; 84100; 84132; 84443; 84484; 85007; 85025; 85027; 85610; 85730; 86850; 86900; 86901; 86920; 87040; 87075; 87076; 87116; 87186; 87641; 93005; 94760; 99406; G0378; J2354; J3490; C1757; J0360; J0692; J0696; J1170; J1644; J2370; J2405; J2704; J3010; J3370; J3475; J7030; J7040; J7050; J7120; P9016; Q9967

== ENCOUNTER 2021-12-13 17:16 | Inpatient (IN) | payer MEDICARE ==
[2021-12-13] MEDS ORDERED: MORPHINE 4 MG/1 ML INJ IV ONE (18:19)
[2021-12-13] MEDS ORDERED: ONDANSETRON 4 MG/2 ML INJ IV ONE (18:19)
[2021-12-13 18:49] LABS: Basophils # (Auto) 0.1 K/mm3 (0.0-0.1); Eosinophils # (Auto) 0.1 K/mm3 (0.0-0.4); Eosinophils % (Auto) 0.4 % (0.0-4.3); Hematocrit 20.6 % (30.3-42.9); Hemoglobin 6.6 gm/dl (10.1-14.3); Lymphocytes # (Auto) 1.6 K/mm3 (1.2-5.4); Lymphocytes % (Auto) 12.9 % (13.4-35.0); Mean Corpuscular HGB Conc 32 % (30-34); Mean Corpuscular Volume 84 fl (79-97); Monocytes % (Auto) 7.9 % (0.0-7.3); Platelet Count 544 K/mm3 (140-440); Red Blood Count 2.46 M/mm3 (3.65-5.03)
[2021-12-13 18:53] LABS: Red Cell Distribution Width 20.2 % (13.2-15.2)
[2021-12-13 19:00] LABS: INR 1.31 (0.87-1.13)
[2021-12-13 19:01] LABS: Partial Thromboplastin Time 51.9 Sec. (24.2-36.6)
[2021-12-13 19:43] LABS: Albumin 2.1 g/dL (3.9-5); Blood Urea Nitrogen 9 mg/dL (7-17); Calcium 7.8 mg/dL (8.4-10.2); Hemolysis Index 24
[2021-12-13] MEDS ORDERED: SODIUM CHLORIDE 0.9% 1000 ML 1,000 ML ONE (19:44)
[2021-12-13 19:45] LABS: Alanine Aminotransferase < 5 units/L (7-56); BUN/Creatinine Ratio 15
[2021-12-13] MEDS ORDERED: SODIUM CHLORIDE 0.9% 500 ML 500 ML IV ONE ×2 (19:52→20:43)
--- NOTE | 2021-12-13 20:12 | Emergency Department Report ---
ED General Adult HPI - General Chief complaint: Extremity Problem,Nontraumatic Stated complaint: BLEEDING LEFT LEG SUGERY SITE Time Seen by Provider: 12/13/21 17:54 Source: patient, EMS Mode of arrival: Stretcher Limitations: Other - History of Present Illness Initial comments: The patient presents to the emergency department with a chief complaint of b leeding from her left groin. Patient is status post femoropopliteal bypass who unfortunately developed infection in that region which required additional surgery. Patient states that the home health care nurse was at her home today when the bleeding initiated. At first the patient tells me that she does not have a clue what her wound VAC is located but upon further questioning she tells me the home health care nurse was actually there to change the wound VAC. Patient states when the wound VAC was being changed just when the bleeding occurred. She denies any chest pain or abdominal pain but does complain of pain in that region. Patient has warm extremities/feet on exam bilaterally. -: Sudden Severity scale (0 -10): 8 Quality: aching Consistency: constant Improves with: none Worsens with: none Associated Symptoms: denies other symptoms Treatments Prior to Arrival: none - Related Data Home Medications Medication Instructions Recorded Confirmed Last Taken AtorvaSTATin [Lipitor] 40 mg PO DAILY 09/01/21 12/11/21 12/05/21 Gabapentin 100 mg PO BID 09/01/21 12/11/21 12/05/21 carvediloL [Coreg] 25 mg PO BID 09/01/21 12/11/21 12/05/21 traZODone [Desyrel] 100 mg PO QHS 09/01/21 12/11/21 12/05/21 Venlafaxine [Effexor] 75 mg PO DAILY 11/02/21 12/11/21 12/05/21 Previous Rx's Medication Instructions Recorded Last Taken Type Apixaban [Eliquis] 2.5 mg PO Q12HR #60 tab 09/01/21 12/05/21 Rx Pantoprazole [Protonix TAB] 40 mg PO QDAY #90 tablet 09/01/21 12/05/21 Rx Aspirin EC [Halfprin EC] 81 mg PO QDAY #30 tablet 12/11/21 Unknown Rx Clopidogrel [Plavix] 75 mg PO QDAY #90 tablet 12/11/21 Unknown Rx Docusate Sodium [Colace CAP] 100 mg PO BID #60 capsule 12/11/21 Unknown Rx cilostazoL [Pletal] 50 mg PO BID #60 tab 12/11/21 Unknown Rx levoFLOXacin [Levaquin] 750 mg PO QDAY #7 tablet 12/11/21 Unknown Rx traMADoL [Ultram] 50 mg PO Q6HR PRN #20 tablet 12/11/21 Unknown Rx Allergies Allergy/AdvReac Type Severity Reaction Status Date / Time No Known Allergies Allergy Verified 12/13/21 17:26 ED Review of Systems ROS: Stated complaint: BLEEDING LEFT LEG SUGERY SITE Other details as noted in HPI Comment: All other systems reviewed and negative Constitutional: denies: chills, fever Eyes: denies: eye pain, eye discharge, vision change ENT: denies: ear pain, throat pain Respiratory: denies: cough, shortness of breath, wheezing Cardiovascular: denies: chest pain, palpitations Endocrine: no symptoms reported Gastrointestinal: denies: abdominal pain, nausea, diarrhea Genitourinary: denies: urgency, dysuria, discharge Musculoskeletal: denies: back pain, joint swelling, arthralgia Skin: denies: rash, lesions Neurological: denies: headache, weakness, paresthesias Psychiatric: denies: anxiety, depression Hematological/Lymphatic: denies: easy bleeding, easy bruising ED Past Medical Hx - Past Medical History Hx Hypertension: Yes Hx CVA: No Hx Heart Attack/AMI: No (Cardiac clearance; echo & nst) Hx Congestive Heart Failure: No Hx Diabetes: No Hx Deep Vein Thrombosis: No Hx Pulmonary Embolism: No Hx GERD: No Hx Liver Disease: No Hx Renal Disease: No Hx Sickle Cell Disease: No Hx Arthritis: No Hx Headaches / Migraines: No Hx Seizures: No Hx Kidney Stones: No Hx Psychiatric Treatment: No Hx Asthma: No Hx COPD: No Hx Tuberculosis: No Hx Dementia: No Hx HIV: No - Surgical History Past Surgical History?: Yes Hx Coronary Stent: No Hx Open Heart Surgery: No Hx Pacemaker: No Hx Internal Defibrillator: No Hx Cholecystectomy: No Hx Appendectomy: No Hx Breast Surgery: No Additional Surgical History: Femoral bypass Surgery - Social History Smoking Status: Current Every Day Smoker Substance Use Type: None - Medications Home Medications: Home Medications Medication Instructions Recorded Confirmed Last Taken Type Apixaban [Eliquis] 2.5 mg PO Q12HR #60 tab 09/01/21 12/11/21 12/05/21 Rx AtorvaSTATin [Lipitor] 40 mg PO DAILY 09/01/21 12/11/21 12/05/21 History Gabapentin 100 mg PO BID 09/01/21 12/11/21 12/05/21 History Pantoprazole [Protonix TAB] 40 mg PO QDAY #90 tablet 09/01/21 12/11/21 12/05/21 Rx carvediloL [Coreg] 25 mg PO BID 09/01/21 12/11/21 12/05/21 History traZODone [Desyrel] 100 mg PO QHS 09/01/21 12/11/21 12/05/21 History Venlafaxine [Effexor] 75 mg PO DAILY 11/02/21 12/11/21 12/05/21 History Aspirin EC [Halfprin EC] 81 mg PO QDAY #30 tablet 12/11/21 Unknown Rx Clopidogrel [Plavix] 75 mg PO QDAY #90 tablet 12/11/21 Unknown Rx Docusate Sodium [Colace CAP] 100 mg PO BID #60 capsule 12/11/21 Unknown Rx cilostazoL [Pletal] 50 mg PO BID #60 tab 12/11/21 Unknown Rx levoFLOXacin [Levaquin] 750 mg PO QDAY #7 tablet 12/11/21 Unknown Rx traMADoL [Ultram] 50 mg PO Q6HR PRN #20 tablet 12/11/21 Unknown Rx ED Physical Exam - General Limitations: Other General appearance: alert, in no apparent distress - Head Head exam: Present: atraumatic, normocephalic - Eye Eye exam: Present: normal appearance, PERRL, EOMI - ENT ENT exam: Present: mucous membranes moist - Neck Neck exam: Present: normal inspection - Respiratory Respiratory exam: Present: normal lung sounds bilaterally. Absent: respiratory distress - Cardiovascular Cardiovascular Exam: Present: regular rate, normal rhythm. Absent: systolic murmur, diastolic murmur, rubs, gallop - GI/Abdominal GI/Abdominal exam: Present: soft, normal bowel sounds. Absent: distended, tenderness - Extremities Exam Extremities exam: Present: other (Surgical site of the left femoral triangle shows well-healing tissue with no arterial bleed. Patient does have bleeding from the region of the flap but is controlled by pressure. Hematoma present on exam) - Back Exam Back exam: Present: normal inspection - Neurological Exam Neurological exam: Present: alert, oriented X3 - Psychiatric Psychiatric exam: Present: normal affect, normal mood - Skin Skin exam: Present: warm, dry, intact, normal color. Absent: rash ED Course Vital Signs 12/13/21 12/13/21 12/13/21 17:21 17:36 17:45 Temperature 97.9 F Pulse Rate 76 83 80 Respiratory 18 16 15 Rate Blood Pressure 111/59 Blood Pressure 105/57 [Left] O2 Sat by Pulse 95 99 Oximetry 12/13/21 12/13/21 12/13/21 18:00 18:16 18:30 Temperature Pulse Rate 77 76 78 Respiratory 21 13 15 Rate Blood Pressure 109/61 109/61 109/61 Blood Pressure [Left] O2 Sat by Pulse 97 96 99 Oximetry 12/13/21 12/13/21 12/13/21 18:35 18:46 19:00 Temperature 97.7 F Pulse Rate 78 77 77 Respiratory 14 17 15 Rate Blood Pressure 109/61 Blood Pressure 109/61 [Left] O2 Sat by Pulse 98 99 98 Oximetry 12/13/21 12/13/21 12/13/21 19:16 19:30 19:45 Temperature Pulse Rate 94 H 82 86 Respiratory 21 12 18 Rate Blood Pressure 66/45 Blood Pressure [Left] O2 Sat by Pulse 81 L 84 100 Oximetry 12/13/21 12/13/21 12/13/21 20:00 20:18 20:21 Temperature Pulse Rate 88 158 H 84 Respiratory 19 16 Rate Blood Pressure 66/45 73/51 Blood Pressure 108/52 [Left] O2 Sat by Pulse 100 99 Oximetry 12/13/21 12/13/21 12/13/21 20:30 20:45 21:00 Temperature Pulse Rate 78 79 72 Respiratory 10 L 17 15 Rate Blood Pressure 108/52 114/59 73/51 Blood Pressure [Left] O2 Sat by Pulse 100 83 L 100 Oximetry 12/13/21 12/13/21 12/13/21 21:16 21:30 21:46 Temperature Pulse Rate 75 78 78 Respiratory 16 12 10 L Rate Blood Pressure 126/60 126/60 119/62 Blood Pressure [Left] O2 Sat by Pulse 100 100 100 Oximetry 12/13/21 12/13/21 12/13/21 22:00 22:16 22:20 Temperature Pulse Rate 79 78 78 Respiratory 12 9 L 11 L Rate Blood Pressure 119/62 117/60 117/60 Blood Pressure [Left] O2 Sat by Pulse 96 100 99 Oximetry 12/13/21 12/13/21 12/13/21 22:30 22:39 22:40 Temperature 97.9 F Pulse Rate 77 77 82 Respiratory 13 16 13 Rate Blood Pressure 117/60 117/60 Blood Pressure 117/60 [Left] O2 Sat by Pulse 100 99 100 Oximetry ED Medical Decision Making - Lab Data Result diagrams: 12/13/21 18:25 12/13/21 18:25 Lab Results 12/13/21 12/13/21 12/13/21 Range/Units 18:25 18:25 18:25 WBC 12.2 H (4.5-11.0) K/mm3 RBC 2.46 L (3.65-5.03) M/mm3 Hgb 6.6 L (10.1-14.3) gm/dl Hct 20.6 L (30.3-42.9) % MCV 84 (79-97) fl MCH 27 L (28-32) pg MCHC 32 (30-34) % RDW 20.2 H (13.2-15.2) % Plt Count 544 H (140-440) K/mm3 Lymph % (Auto) 12.9 L (13.4-35.0) % Wayne % (Auto) 7.9 H (0.0-7.3) % Eos % (Auto) 0.4 (0.0-4.3) % Baso % (Auto) 1.0 (0.0-1.8) % Lymph # (Auto) 1.6 (1.2-5.4) K/mm3 Wayne # (Auto) 1.0 H (0.0-0.8) K/mm3 Eos # (Auto) 0.1 (0.0-0.4) K/mm3 Baso # (Auto) 0.1 (0.0-0.1) K/mm3 Seg Neutrophils % 77.8 H (40.0-70.0) % Seg Neutrophils # 9.5 H (1.8-7.7) K/mm3 PT 17.8 H (12.2-14.9) Sec. INR 1.31 H (0.87-1.13) APTT 51.9 H (24.2-36.6) Sec. Sodium 134 L (137-145) mmol/L Potassium 3.6 (3.6-5.0) mmol/L Chloride 100.1 (98-107) mmol/L Carbon Dioxide 28 (22-30) mmol/L Anion Gap 10 mmol/L BUN 9 (7-17) mg/dL Creatinine 0.6 (0.6-1.2) mg/dL Estimated GFR > 60 ml/min BUN/Creatinine Ratio 15 % Glucose 85 (65-100) mg/dL Calcium 7.8 L (8.4-10.2) mg/dL Total Bilirubin 0.30 (0.1-1.2) mg/dL AST 13 (5-40) units/L ALT < 5 L (7-56) units/L Alkaline Phosphatase 118 (35-129) units/L Total Protein 4.6 L (6.3-8.2) g/dL Albumin 2.1 L (3.9-5) g/dL Albumin/Globulin Ratio 0.8 % Blood Type Antibody Screen Crossmatch 12/13/21 Range/Units 20:59 WBC (4.5-11.0) K/mm3 RBC (3.65-5.03) M/mm3 Hgb (10.1-14.3) gm/dl Hct (30.3-42.9) % MCV (79-97) fl MCH (28-32) pg MCHC (30-34) % RDW (13.2-15.2) % Plt Count (140-440) K/mm3 Lymph % (Auto) (13.4-35.0) % Wayne % (Auto) (0.0-7.3) % Eos % (Auto) (0.0-4.3) % Baso % (Auto) (0.0-1.8) % Lymph # (Auto) (1.2-5.4) K/mm3 Wayne # (Auto) (0.0-0.8) K/mm3 Eos # (Auto) (0.0-0.4) K/mm3 Baso # (Auto) (0.0-0.1) K/mm3 Seg Neutrophils % (40.0-70.0) % Seg Neutrophils # (1.8-7.7) K/mm3 PT (12.2-14.9) Sec. INR (0.87-1.13) APTT (24.2-36.6) Sec. Sodium (137-145) mmol/L Potassium (3.6-5.0) mmol/L Chloride (98-107) mmol/L Carbon Dioxide (22-30) mmol/L Anion Gap mmol/L BUN (7-17) mg/dL Creatinine (0.6-1.2) mg/dL Estimated GFR ml/min BUN/Creatinine Ratio % Glucose (65-100) mg/dL Calcium (8.4-10.2) mg/dL Total Bilirubin (0.1-1.2) mg/dL AST (5-40) units/L ALT (7-56) units/L Alkaline Phosphatase (35-129) units/L Total Protein (6.3-8.2) g/dL Albumin (3.9-5) g/dL Albumin/Globulin Ratio % Blood Type O POSITIVE Antibody Screen Negative Crossmatch See Detail - Radiology Data Radiology results: report reviewed - Medical Decision Making Spoke to Dr. Cheng at approximately 6:10 PM Discussed applying a wet-to-dry dressing with application of a sandbag Also discussed CTA with runoffs Packed RBCs ordered Upon return of CTA findings Dr. Cheng was contacted and pressure dressing details were discussed Also discussed that the patient should discontinue Eliquis and baby aspirin Critical Care Time: Yes Critical care time in (mins) excluding proc time.: 75 Critical care attestation.: If time is entered above; I have spent that time in minutes in the direct care of this critically ill patient, excluding procedure time. ED Disposition Clinical Impression: Femoral artery pseudo-aneurysm, left, Common femoral artery injury Disposition: 09 ADMITTED INPATIENT Is pt being admited?: Yes Does the pt Need Aspirin: No Condition: Stable Referrals: PRIMARY CARE, [Primary Care Provider] - 3-5 Days
--- NOTE | 2021-12-13 20:49 | Cat Scan Report ---
CTA abdomen and pelvis with contrast INDICATION : fem pop bypass with bleeding. TECHNIQUE: Axial imaging performed through the abdomen and pelvis, with contrast bolus timing set to maximize opacification of the aorta. Bilateral lower extremity runoff was also performed. 3-plane M IP reformatted images were obtained. All CT scans at this location are performed using CT dose reduc tion for ALARA by means of automated exposure control. 100 mL of intravenous contrast administered. COMPARISON: CT angiogram from 12/02/[address] abdomen/pelvis from 10/22/2021 FINDINGS: Angiographic findings: Moderate atherosclerotic calcification is present in the abdominal aorta and t he branch vessels. There is at least roughly 50% stenosis at the origin of each respective single javid al artery. There is also at least 75% stenosis at the origin of the celiac axis. Moderate atherosclerotic calcification extends into the iliac arteries bilaterally with an ulcerated plaque again noted projecting anteriorly from the left common iliac artery. There is again a dissecti on in the left external iliac artery originating just beyond the origin and extending nearly to the C FA. The common femoral artery is diminutive in size with overlying soft tissue wound and interval rem oval of the femoropopliteal bypass graft. There is a small blush of active hemorrhage in the left ing uinal region measuring approximately 1.3 x 0.3 cm in maximal dimensions on image 580 of series 3. The re is patent blood flow throughout the left SFA where there are stents extending nearly along the ent jossue course. The profunda is widely patent. Moderate atherosclerotic disease is present in the distal SFA and popliteal artery without severe stenosis. The distal popliteal artery is occluded and the tri furcate arteries are supplied by tiny collateral vessels in this region. There is a three-vessel runo ff to the left foot. On the right, there is moderate atherosclerotic disease in the external iliac artery with patent sten t in the mid to distal segment. The VOICE SYSTEMS ENGINEER is patent with at least 50% stenosis. There are segments of s accular dilatation along the VOICE SYSTEMS ENGINEER and proximal SFA. The SFA demonstrates moderate multifocal atheroscl erotic disease but remains patent with segments of roughly 50% stenosis. Similar findings extend in t he popliteal artery and into the trifurcate arteries with 2 vessel runoff into the foot. The peroneal artery becomes diminutive near the level of the ankle. Non-angiographic findings: Lungs/bones: Mild to moderate emphysematous changes are present with trace left-sided pleural effusi on and mild bibasilar atelectasis. There are degenerative changes throughout the spine and pelvis as well as both lower extremities with no acute osseous abnormality identified. Abdomen/pelvis: Simple cyst noted centrally in the liver. Liver is otherwise unremarkable except for being mildly enlarged. The gallbladder, pancreas, adrenals, left kidney, and proximal GI tract appea r unremarkable. 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 Urinary bladder and reproductive organs are unremarkable with no pelvic free fluid. There is colonic diverticulosis with no acute inflammation. A small lipoma seen in the right gluteal region. Postoperative soft tissue wound extends along the left groin and also distally along the thigh to the level of the knee and more distally to the leg. There is extensive soft tissue swelling about the le ft leg with ill-defined rim enhancement in the level of the distal leg with some internal gas and flu id measuring roughly 2.3 x 1.4 cm for example on image 1132 of series 3 in maximal transverse dimensi ons over a span of several centimeters craniocaudal. There is also a large hematoma in the left ingui nal region measuring roughly 7 cm in maximal dimension as measured on image 597 of series 3. IMPRESSION: 1. Interval postoperative changes outlined above with a small amount of active hemorrhage in the lef t inguinal region and a large inguinal hematoma. Extensive swelling throughout the entire left lower extremity which extends into the interfascial compartment in the leg where there is a thin irregular rim-enhancing collection which could represent hematoma formation given postoperative status; however , correlate for the timing of surgery since an evolving abscess could also have this appearance. Intr amuscular edema is also present most notably in the distal leg. 2. 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 Additional largely stable vascular fi ndings as above. 3. Additional incidental findings as above. COMMUNICATION: Time of Communication (SUPERVISOR ENGINE ASSEMBLY/CDT): 7:45 PM Licensed Practitioner Receiving Report: Dr. Lopez Signer Name: Samuel Crowley MD Signed: 12/13/2021 8:45 PM Workstation Name: [id number]
--- NOTE | 2021-12-13 22:00 | Event Note ---
Date: 12/13/21 56 year old female with severe PVD who underwent left fem-pop which failed and then bilateral endovascular revascularization. Nutrition status quite poor and patient has alcohol dependence (unknown to us at the time) and had severe alcohol withdrawal. Left fem-pop wounds deteriorated and became infected and required explantation. Presented to the hospital from left groin ooze during vac change. Concerned that wound vac waste/materials exchange specialist [facility] must have partially disrupted healing left femoral patch. Nutrition has been poor up to this point. Has left vein patch pseudoaneurysm arising from the top of the left vein patch. Will need to have to be addressed during this admission. HGB 6.6. Will need 2 units pRBC transfused today. Recommend obtaining 4 more units pRBC crossmatch on hold. Keep flat. Hold eliquis. Hold aspirin. Continue plavix and cilostazol. Recommended applying pressure dressing to left groin in the interim. Plan for OR on saturday with medical optimization tomorrow. Eliquis should be held (48 hrs) for surgery. Recommend ID consult for continued treatment of fem pop infection which was explanted. Will need wound vac to left thigh and calf. DO NOT APPLY WOUND VAC TO LEFT GROIN. Vascular will follow.
[2021-12-13] MEDS ORDERED: VANCOMYCIN PHARMACY TO DOSE IV SCH (23:00)
[2021-12-13] MEDS ORDERED: ACETAMINOPHEN 325 MG TAB PO PRN (23:13)
[2021-12-13] MEDS ORDERED: ALBUTEROL 2.5 MG/3 ML NEBU IH PRN (23:13)
[2021-12-13] MEDS ORDERED: ONDANSETRON 4 MG/2 ML INJ IV PRN (23:13)
[2021-12-13] MEDS ORDERED: SODIUM CHLORIDE 0.9% 1000 ML 1,000 ML IV SCH (23:15)
--- NOTE | 2021-12-13 23:23 | History and Physical Report ---
History of Present Illness Date of examination: 12/13/21 Date of admission: 12/13/21 Chief complaint: Bleeding from left leg surgery site History of present illness: 56 years old female with history of peripheral vascular disease status post femoropopliteal bypass surgery to the emergency department with a chief complaint of bleeding from her left groin. Patient is status post femoropopliteal bypass who unfortunately developed infection in that region which required additional surgery. Patient states that the home health care nurse was at her home today when the bleeding initiated. At first the patient tells me that she does not have a clue what her wound VAC is located but upon further questioning she tells me the home health care nurse was actually there to change the wound VAC. Patient states when the wound VAC was being changed just when the bleeding occurred. She denies any chest pain or abdominal pain but does complain of pain in that region. Patient has warm extremities/feet on exam bilaterally. Subsequently patient is evaluated by vascular surgeon Dr. Cheng. HGB 6.6. Will need 2 units pRBC transfused today. Recommend obtaining 4 more units pRBC crossmatch on hold. Keep flat. Hold eliquis. Hold aspirin. Continue plavix and cilostazol. Recommended applying pressure dressing to left groin in the interim. Plan for OR on saturday with medical optimization tomorrow. Eliquis should be held for surgery. Recommend ID consult for continued treatment of fem pop infection Past History Past Medical History: hypertension, other (PVD) Past Surgical History: Other (Femoral bypass Surgery) Social history: smoking Family history: hypertension Medications and Allergies Allergies Allergy/AdvReac Type Severity Reaction Status Date / Time No Known Allergies Allergy Verified 12/13/21 17:26 Home Medications Medication Instructions Recorded Confirmed Last Taken Type Apixaban [Eliquis] 2.5 mg PO Q12HR #60 tab 09/01/21 12/11/21 12/05/21 Rx AtorvaSTATin [Lipitor] 40 mg PO DAILY 09/01/21 12/11/21 12/05/21 History Gabapentin 100 mg PO BID 09/01/21 12/11/21 12/05/21 History Pantoprazole [Protonix TAB] 40 mg PO QDAY #90 tablet 09/01/21 12/11/21 12/05/21 Rx carvediloL [Coreg] 25 mg PO BID 09/01/21 12/11/21 12/05/21 History traZODone [Desyrel] 100 mg PO QHS 09/01/21 12/11/21 12/05/21 History Venlafaxine [Effexor] 75 mg PO DAILY 11/02/21 12/11/21 12/05/21 History Aspirin EC [Halfprin EC] 81 mg PO QDAY #30 tablet 12/11/21 Unknown Rx Clopidogrel [Plavix] 75 mg PO QDAY #90 tablet 12/11/21 Unknown Rx Docusate Sodium [Colace CAP] 100 mg PO BID #60 capsule 12/11/21 Unknown Rx cilostazoL [Pletal] 50 mg PO BID #60 tab 12/11/21 Unknown Rx levoFLOXacin [Levaquin] 750 mg PO QDAY #7 tablet 12/11/21 Unknown Rx traMADoL [Ultram] 50 mg PO Q6HR PRN #20 tablet 12/11/21 Unknown Rx Review of Systems All systems: negative Constitutional: weakness, malaise, other (Bleeding from left leg surgery site) Exam - Constitutional Vitals: Temp Pulse Resp BP Pulse Ox 97.7 F 74 10 L 119/61 100 12/13/21 23:09 12/13/21 23:00 12/13/21 23:00 12/13/21 23:00 12/13/21 23:00 General appearance: Present: mild distress, well-nourished - EENT Eyes: Present: PERRL ENT: hearing intact, clear oral mucosa - Neck Neck: Present: supple, normal ROM - Respiratory Respiratory effort: normal Respiratory: bilateral: CTA - Cardiovascular Heart Sounds: Present: S1 & S2. Absent: rub, click - Extremities Extremities: pulses symmetrical, No edema Peripheral Pulses: within normal limits - Abdominal General gastrointestinal: Present: soft, non-tender, non-distended, normal bowel sounds Female genitourinary: Present: normal - Integumentary Integumentary: Present: clear, warm, dry - Musculoskeletal Musculoskeletal: gait normal, strength equal bilaterally - Psychiatric Psychiatric: appropriate mood/affect, intact judgment & insight - Neurologic Neurologic: CNII-XII intact, moves all extremities Results - Labs CBC & Chem 7: 12/13/21 18:25 12/13/21 18:25 Labs: Laboratory Last Values WBC 12.2 K/mm3 (4.5-11.0) H 12/13/21 18:25 RBC 2.46 M/mm3 (3.65-5.03) L 12/13/21 18:25 Hgb 6.6 gm/dl (10.1-14.3) L 12/13/21 18:25 Hct 20.6 % (30.3-42.9) L 12/13/21 18:25 MCV 84 fl (79-97) 12/13/21 18:25 MCH 27 pg (28-32) L 12/13/21 18:25 MCHC 32 % (30-34) 12/13/21 18:25 RDW 20.2 % (13.2-15.2) H 12/13/21 18:25 Plt Count 544 K/mm3 (140-440) H 12/13/21 18:25 Lymph % (Auto) 12.9 % (13.4-35.0) L 12/13/21 18:25 [place] % (Auto) 7.9 % (0.0-7.3) H 12/13/21 18:25 Eos % (Auto) 0.4 % (0.0-4.3) 12/13/21 18:25 Baso % (Auto) 1.0 % (0.0-1.8) 12/13/21 18:25 Lymph # (Auto) 1.6 K/mm3 (1.2-5.4) 12/13/21 18:25 [place] # (Auto) 1.0 K/mm3 (0.0-0.8) H 12/13/21 18:25 Eos # (Auto) 0.1 K/mm3 (0.0-0.4) 12/13/21 18:25 Baso # (Auto) 0.1 K/mm3 (0.0-0.1) 12/13/21 18:25 Seg Neutrophils % 77.8 % (40.0-70.0) H 12/13/21 18:25 Seg Neutrophils # 9.5 K/mm3 (1.8-7.7) H 12/13/21 18:25 PT 17.8 Sec. (12.2-14.9) H 12/13/21 18:25 INR 1.31 (0.87-1.13) H 12/13/21 18:25 APTT 51.9 Sec. (24.2-36.6) H 12/13/21 18:25 Sodium 134 mmol/L (137-145) L 12/13/21 18:25 Potassium 3.6 mmol/L (3.6-5.0) 12/13/21 18:25 Chloride 100.1 mmol/L (98-107) 12/13/21 18:25 Carbon Dioxide 28 mmol/L (22-30) 12/13/21 18:25 Anion Gap 10 mmol/L 12/13/21 18:25 BUN 9 mg/dL (7-17) 12/13/21 18:25 Creatinine 0.6 mg/dL (0.6-1.2) 12/13/21 18:25 Estimated GFR > 60 ml/min 12/13/21 18:25 BUN/Creatinine Ratio 15 % 12/13/21 18:25 Glucose 85 mg/dL (65-100) 12/13/21 18:25 Calcium 7.8 mg/dL (8.4-10.2) L 12/13/21 18:25 Total Bilirubin 0.30 mg/dL (0.1-1.2) 12/13/21 18:25 AST 13 units/L (5-40) 12/13/21 18:25 ALT < 5 units/L (7-56) L 12/13/21 18:25 Alkaline Phosphatase 118 units/L (35-129) 12/13/21 18:25 Total Protein 4.6 g/dL (6.3-8.2) L 12/13/21 18:25 Albumin 2.1 g/dL (3.9-5) L 12/13/21 18:25 Albumin/Globulin Ratio 0.8 % 12/13/21 18:25 Blood Type O POSITIVE 12/13/21 20:59 Antibody Screen Negative 12/13/21 20:59 Crossmatch See Detail 12/13/21 20:59 - Imaging and Cardiology CT scan - abdomen: report reviewed Assessment and Plan VTE prophylaxis?: Mechanical Plan of care discussed with patient/family: Yes - Patient Problems (1) Common femoral artery injury Current Visit: Yes Status: Acute Plan to address problem: Admit the patient to the medical floor. Cardiac diet. We are giving 2 unit of packed red blood cell. Vascular surgery evaluation. Possible surgery on Saturday. Pressure bandage . Hold Eliquis and aspirin. Recheck CBC in the morning (2) Anemia Current Visit: No Status: Acute Qualifiers: Other causes of anemia: enzyme D/O, other glycolytic enzymes Plan to address problem: Patient is getting 2 unit of packed red blood cell. Recheck CBC in the morning if needed will transfuse more. (3) Femoral-popliteal bypass graft occlusion, left Current Visit: No Status: Acute Plan to address problem: Patient is status post femoral-popliteal bypass grafts surgery. Vascular surg priyanka evaluation (4) HTN (hypertension) Current Visit: No Status: Acute Plan to address problem: Hydralazine 10 mg IV every 6 hours as needed. We continue the home medication (5) PVD (peripheral vascular disease) Current Visit: No Status: Acute Plan to address problem: Patient is status post femoral-popliteal bypass surgery. Vascular surgery evaluation. Continue home medication (6) Tobacco abuse Current Visit: No Status: Chronic Plan to address problem: Counseled the patient regarding quitting smoking. We will put the patient on nicotine patch (7) Surgical site infection Current Visit: Yes Status: Acute Plan to address problem: We put the patient on vancomycin 1 g IV every 12 hours. Zosyn 4.5 g IV every 8 hours. Reconsult infectious disease evaluation (8) DVT prophylaxis Current Visit: No Status: Acute Plan to address problem: SCD for DVT prophylaxis. Pepcid 20 mg p.o. twice daily for GI prophylaxis. Patient is a full code
[2021-12-13] MEDS ORDERED: VANCOMYCIN/NS 1 GM/250 ML 1 GM/250 ML BAG IV SCH (23:45)
[2021-12-14] MEDS ORDERED: PIPERACIL/TAZOBACTA 4.5/NS 100 4.5 GM/100 ML VIAL IV SCH
[2021-12-14] MEDS ORDERED: VANCOMYCIN/NS 1 GM/250 ML 1 GM/250 ML BAG IV ONE (01:00)
[2021-12-14] MEDS: MORPHINE 2 MG/1 ML INJ IV PRN (01:23)
[2021-12-14] MEDS: IPRATROPIUM/ALBUTEROL SULFATE 3 ML AMPUL.NEB IH SCH ×2 (02:13→07:53)
[2021-12-14] MEDS: MORPHINE 4 MG/1 ML INJ IV PRN ×2 (05:07→21:35)
[2021-12-14 07:48] LABS: Basophils # (Auto) 0.1 K/mm3 (0.0-0.1); Basophils % (Auto) 0.9 % (0.0-1.8); Eosinophils # (Auto) 0.2 K/mm3 (0.0-0.4); Eosinophils % (Auto) 1.4 % (0.0-4.3); Hematocrit 22.8 % (30.3-42.9); Hemoglobin 7.6 gm/dl (10.1-14.3); Lymphocytes # (Auto) 1.3 K/mm3 (1.2-5.4); Lymphocytes % (Auto) 10.4 % (13.4-35.0); Mean Corpuscular HGB Conc 34 % (30-34); Mean Corpuscular Volume 87 fl (79-97); Monocytes # (Auto) 0.9 K/mm3 (0.0-0.8); Monocytes % (Auto) 7.1 % (0.0-7.3); Platelet Count 454 K/mm3 (140-440); Red Blood Count 2.61 M/mm3 (3.65-5.03); Red Cell Distribution Width 17.4 % (13.2-15.2)
[2021-12-14] MEDS ORDERED: SODIUM CHLORIDE 0.9% 500 ML 500 ML IV NR ×3 (07:52→10:30)
[2021-12-14 08:09] LABS: Blood Urea Nitrogen 9 mg/dL (7-17); Calcium 7.5 mg/dL (8.4-10.2); Hemolysis Index 10
[2021-12-14 08:12] LABS: BUN/Creatinine Ratio 18
[2021-12-14] MEDS ORDERED: LIDOCAINE (1%) 10 MG/1 ML VIAL 20 ML MDV ONE (08:21)
[2021-12-14] MEDS ORDERED: HEPARIN/NS 5000 UNIT/500ML 1,000 ML IR ONE (08:21)
[2021-12-14] MEDS ORDERED: HYDROmorphone 1 MG/1 ML INJ ONE (08:38)
[2021-12-14] MEDS ORDERED: propofoL 200 MG/20 ML VIAL IV ONE (08:38)
[2021-12-14] MEDS ORDERED: LIDOCAINE MPF (2%) 20 MG/1 ML VIAL 5 ML ONE (08:39)
[2021-12-14] MEDS ORDERED: SUCCINYLCHOLINE CHLORIDE 200 MG/10 ML INJ MDV ONE (08:40)
[2021-12-14] MEDS ORDERED: ROCURONIUM 50 MG/5 ML INJ IV ONE (08:41)
--- NOTE | 2021-12-14 08:43 | Anesthesia Day of Surgery ---
Anesthesia Day of Surgery - Day of Surgery Patient Examined: Yes Patient H&P Reviewed: Yes Patient is NPO: Yes
--- NOTE | 2021-12-14 08:46 | Anesthesia Consultation ---
Anesthesia Consult and Med Hx Date of service: 12/14/21 - Airway Anesthetic Teeth Evaluation: Edentulous Intubation Access Assessment: Good - Pre-Operative Health Status ASA Pre-Surgery Classification: ASA4, Emergency Proposed Anesthetic Plan: General - Pulmonary Hx Smoking: Yes (SMOKES 7 CIGARETTES/DAY) Hx Asthma: No COPD: No Hx Pneumonia: Yes Hx Sleep Apnea: Yes - Cardiovascular System Hx Hypertension: Yes Hx Coronary Artery Disease: Yes (elevated troponin) Hx Heart Attack/AMI: No (Cardiac clearance; echo & nst) Hx Pacemaker: No Hx Internal Defibrillator: No Hx Peripheral Vascular Disease: Yes (thrombosis and infection of left fem-pop graft, PERIPHERAL NEUROPATHY) - Central Nervous System Hx Seizures: No CVA: Yes (STROKE 6 YEARS AGO. NO DEFICITS.) Hx Psychiatric Problems: Yes (Depression) - Gastrointestinal Hx Gastroesophageal Reflux Disease: No - Endocrine Hx Renal Disease: No Hx Liver Disease: No - Hematic Hx Anemia: Yes (Hgb 7.6 after two units PRBC) Hx Sickle Cell Disease: No - Other Systems Hx Alcohol Use: Yes (OCCASIONALLY) Hx Substance Use: No Hx Cancer: No Hx Obesity: No (patient is cachecsic) - Additional Comments Anesthesia Medical History Comments: patient presents to OR emergently for surgery because of bleeding and open wound
[2021-12-14] MEDS ORDERED: PHENYLEPHRINE/NS 1,000 MCG/10 ML SYRINGE (OR USE) IV ONE (08:56)
--- NOTE | 2021-12-14 09:02 | Event Note ---
Date: 12/14/21 Was informed that patient had begun to bleed from her left femoral incision. Immediately presented to the floor. Pressure was being held by nursing. No bleeding with pressure. The patient appears to have extravasation at the left proximal incision. Patient CT reviewed which demonstrates patch breakdown likely secondary to inappropriate wound VAC placement at home. Patient was immediately brought to the operating room for exploration and repair.
[2021-12-14] MEDS ORDERED: ceFAZolin 1 GM VIAL ONE (09:03)
[2021-12-14] MEDS ORDERED: SODIUM CHLORIDE 0.9% 1000 ML 2,000 ML ONE (09:19)
[2021-12-14] MEDS ORDERED: SODIUM CHLORIDE 0.9% IRR 1,500 ML BOTTLE IR ONE (09:38)
[2021-12-14] MEDS ORDERED: HEPARIN 10,000 UNITS/10 ML VIAL IV ONE (09:38)
[2021-12-14] MEDS ORDERED: rifAMPin 600 MG VIAL IV ONE (09:38)
[2021-12-14] MEDS ORDERED: SODIUM CHLORIDE 0.9% P/F 10 ML VIAL INFILTRATI ONE (09:53)
[2021-12-14] MEDS ORDERED: FAMOTIDINE 20 MG/2 ML INJ IV SCH (10:00)
[2021-12-14] MEDS ORDERED: ePHEDrine SULFATE 50 MG/1 ML INJ ONE (10:28)
[2021-12-14] MEDS ORDERED: EPINEPHrine 1 MG/10 ML SYRINGE ONE (10:47)
[2021-12-14] MEDS ORDERED: THROMBIN (RECOMBINANT) 5,000 UNIT VIAL TP ONE (10:49)
[2021-12-14] MEDS ORDERED: SODIUM CHLORIDE 0.9% 1000 ML 1,000 ML ONE (11:52)
[2021-12-14] MEDS ORDERED: VANCOMYCIN 750 MG in SODIUM CHLORIDE 0.9% 250ML 250 ML IV SCH (12:00)
[2021-12-14] MEDS ORDERED: NEOSTIGMINE 10MG/10 ML INJ MDV ONE (12:01)
[2021-12-14] MEDS ORDERED: GLYCOPYRROLATE 0.4 MG/2 ML INJ ONE (12:01)
[2021-12-14] MEDS ORDERED: ONDANSETRON 4 MG/2 ML INJ ONE (12:02)
--- NOTE | 2021-12-14 12:56 | Operative Report ---
Operative Report Operative Report: Date of Procedure: 12/14/2021 Pre-operative Diagnosis: Left Groin Bleeding Post-operative Diagnosis: Left Groin Bleeding with Disruption of the Left Common Femoral Arterial Patch Procedure(s): 1. Exploration of Left Groin Wound For Postoperative Hemorrhage 2. Open Thrombectomy of Left SFA with 4 Paxton 3. Repair of Left Common Femoral Artery with Bovine Pericardial Patch 4. Coverage of Left Common Femoral Artery with Sartorius Muscle Flap 5. Placement of 7 x 10 cm MiroDerm Biologic Wound Matrix 6. Wound VAC Placement (Wound Measures 14 x 4 x 1 cm) Surgeon: Lauri Edge M.D. Fish And Wildlife Technician: None Anesthesia: General Endotracheal Anesthesia EBL: 850 mL Fluids: 4 Units of Packed Red Blood Cell, 2 Units of FFP, 1 L of Crystalloid Counts: Correct Complications: None Condition: Stable Findings: There was disruption of the vein patch of the left common femoral artery at the proximal apex with active hemorrhage. Specimen: None Indication: The patient is a 56-year-old female with a history of peripheral vascular disease and tobacco abuse who is undergone multiple operations including e xcision of an infected left common femoral to below-knee popliteal artery bypass. She presented with bleeding from the left groin incision which was initially stable however began to actively hemorrhage this morning. She is in need of emergent exploration of the left groin with repair. She was given the risk, benefits, and alternative procedures and consented to the procedure. Description of Procedure: The patient was brought to the operating room and laid in supine position. After timeout was performed general endotracheal anesthesia was achieved and her left leg was prepped and draped in normal sterile fashion. Curved Mayos were used to remove sutures that tacked the sartorius muscle to the medial wall of the incision and the wound was explored. Initially I was unable to find any active bleeding however there was a significant amount of thrombus and seroma in the lateral portion of the incision where the sartorius muscle had been mobilized from. Upon irrigating the wound and clearing the thrombus I must have dislodged the clot from the area of previous bleeding and there was active hemorrhage from the proximal portion of the vein patch on the left common femoral artery. I used a 6 Paxton with a three-way stopcock and advanced this into the external iliac artery to control the inflow. I then dissected around the SFA as well as the popliteal artery and controlled him circumferentially with Vesseloops. I then clamped off both arteries using angled DeBakey clamps. At this time I systemically heparinized the patient with 4000 units heparin IV. I used curved Mayos to resect the vein patch from the common femoral artery and then extended my arteriotomy into the distal external iliac artery. There was significant amount of plaque in the distal artery which I was able to remove using a [place] and curved hemostat to grab additional plaque. Once I cleared the plaque I then evaluated the SFA and there was obvious thrombus within the proximal portion of the SFA which is stented. I removed the DeBakey clamp and there was no active backbleeding from the SFA. I made several passes with a 4 Paxton, retrieving a significant amount of thrombus, and eventually made passes until there was no additional thrombus and some backbleeding. I flushed the artery with heparinized saline and then reclamped it with the DeBakey clamp. I removed a DeBakey clamp from the profunda artery which had adequate backbleeding. I reclamped the artery and turned my attention to closure of the arteriotomy. The patient had no adequate vein and given her poor healing I did not want to make an additional incision in the right leg for vein harvest so I used a bovine pericardial patch that was soaked in rifampin to close the left femoral arteriotomy. I used the patch and closed the arteriotomy using two 5-0 Prolene's in running fashion. Prior to completing the closure I flashed the SFA and profunda artery to remove any thrombus and then reclamped the arteries. I then remove the 6 Paxton and completed the closure. Hemostasis on the vein patch was achieved with 6-0 Prolene's in interrupted fashion. There was also an area of hemorrhage from the from the bifurcation between the SFA and profunda artery. I eventually had to mobilize the common femoral artery down to the bifurcation which was heavily scarred in. I was able to roll up the artery and identify the area of bleeding which was repaired with 6-0 Prolene's in interrupted fashion. Once I controlled the bleeding hemostasis within the wound was achieved with a combination of thrombin and Gelfoam, Floseal, and Vistaseal. Once hemostasis was achieved I then mobilized the sartorius muscle distally to relieve any tension on the muscle. I then dissected the muscle free all the way to the anterior superior iliac spine and took down the attachment of the muscle to the ASIS. I then secured the muscle to the medial wall of the incision using 2-0 Vicryl interrupted fashion as well as securing it to the anterior abdominal wall with 2-0 Vicryl interrupted fashion. I then used a 7 x 10 cm MiroDerm Biologic Wound Matrix to provide further coverage of the artery and hopefully stimulate granulation given the patient's overall poor nutritional intake. I placed this over the sartorius muscle and secured it to the incision, circumferentially, using 3-0 chromic in interrupted fashion. I then placed a piece of Adaptic over the wound matrix and then placed a wound VAC over the incision which had an adequate seal. The thigh wound and distal leg wound were then dressed with fluffs, and ABD pad, a Kerlix roll, and a 6 inch Ravi bandage. The patient tolerated the procedure well. All sponge, needle, and instrument counts were correct. The patient was taken to the recovery area in stable condition.
[2021-12-14] MEDS ORDERED: HEPARIN 10,000 UNITS/10 ML VIAL IV NR (13:00)
[2021-12-14] MEDS ORDERED: HEPARIN/ 0.45% NACL DRIP 25,000 UNIT/500 ML BAG IV SCH (13:00)
--- NOTE | 2021-12-14 13:22 | Event Note ---
Date: 12/14/21 The patient was experiencing significant hemorrhage from her left poplitealfemoral bypass site. The patient was rushed to the OR before the phys ician could make it to the floor. The patient is being transferred back to MICU.
[2021-12-14] MEDS ORDERED: HEPARIN 10,000 UNITS/10 ML VIAL IV PRN (13:30)
[2021-12-14 14:27] LABS: INR 1.32 (0.87-1.13); Partial Thromboplastin Time 20.4 Sec. (24.2-36.6)
[2021-12-14] MEDS ORDERED: NALOXONE 0.4 MG/1 ML INJ IV PRN (15:02)
[2021-12-14] MEDS: CEFEPIME/NS 1 GM/100 ML 1 GM/100 ML BAG IV SCH (15:43)
[2021-12-14] MEDS: LACTATED RINGERS 1,000 ML IV SCH ×2 (15:43→23:49)
[2021-12-14] MEDS: PANTOPRAZOLE 40 MG TAB PO SCH (15:44)
[2021-12-14] MEDS: CLOPIDOGREL 75 MG TAB PO SCH (16:25)
[2021-12-14] MEDS: carvediloL 25 MG TAB PO SCH ×2 (16:25→21:31)
[2021-12-14] MEDS: CILOSTAZOL 100 MG TAB PO SCH ×2 (16:26→21:31)
[2021-12-14 16:59] LABS: Hematocrit 35.9 % (30.3-42.9); Hemoglobin 11.8 gm/dl (10.1-14.3)
--- NOTE | 2021-12-14 17:29 | Progress Note ---
Assessment and Plan Assessment and plan: #Left groin bleeding with disruption of the left common femoral arterial patch #Left femoral-popliteal bypass graft occlusion #Acute blood loss anemia #Peripheral vascular disease Hemoglobin 7.6--> 11.8 (status post transfusion of packed RBCs). Vascular surgery consulted; appreciate recs Vascular surgery consulted; appreciate recs. Performed exploration of left groin with open thrombectomy of left SFA, repair of left common femoral artery, coverage of left common femoral artery with muscle flap, and wound VAC placement. Patient transferred to MICU for further management. Trending H&H every 12 hours. Holding Eliquis 5 mg every 12 hours and aspirin. Continue to monitor. #Hypertension Continue home antihypertensives #Concern for left tomorrow arterial infection Infectious disease consulted; pending recs Continue vancomycin 1 g every 12 hours. Discontinue Zosyn due to increased risk of nephrotoxicity. Starting cefepime 1 g every 8 hours. #Moderate protein caloric malnutrition Albumin 2.1 Starting dietary supplementation. #Tobacco dependence #Tobacco/Smoking cessation counseling - Counseled patient about the importance of smoking cessation and the possible sequelae as a result of continued tobacco consumption. The patient expresses understanding. Continue with nicotine patch -Time: +15 mins Critical Care Billing: The high probability of a clinically significant, sudden or life threatening deterioration of the [vascular] system(s) required my full and direct attention, intervention and personal management. The aggregate critical care time was [60] minutes. This time is in addition to time spent performing reported procedures but includes the following: [x] Data Review and interpretation [x] Patient assessment and monitoring of vital signs [x] Documentation [x] Medication orders and management Disposition Plan: Continue medical management Total Time Spent with Patient (Minutes): 60 minutes History Interval history: Patient began experiencing significant hemorrhage from left groinprevious site of left femoralpopliteal bypass. Patient was 2 units packed RBCs. Hospitalist Physical - Physical exam Narrative exam: Patient not fully examine due to severity of hemorrhage, and the patient being rushed immediately to the OR. - Constitutional Vitals: Temp Pulse Resp BP Pulse Ox 97.2 F L 87 10 L 114/72 100 12/14/21 13:45 12/14/21 16:00 12/14/21 16:00 12/14/21 16:00 12/14/21 16:00 General appearance: Present: no acute distress, well-nourished - EENT Eyes: Present: PERRL, EOM intact ENT: hearing intact, clear oral mucosa, poor dentition, edentulous - Neck Neck: Present: supple, normal ROM - Respiratory Respiratory effort: normal Respiratory: bilateral: CTA - Cardiovascular Rhythm: regular Heart Sounds: Present: S1 & S2 - Extremities Extremities: no ischemia, pulses intact, pulses symmetrical, normal temperature, normal color, abnormal (Hemorrhaging from left femoral site; pressure bandage in place with soaked chucks) Peripheral Pulses: within normal limits - Abdominal General gastrointestinal: soft, non-tender, non-distended, normal bowel sounds - Integumentary Integumentary: Present: clear, warm, dry - Psychiatric Psychiatric: appropriate mood/affect, cooperative - Neurologic Neurologic: CNII-XII intact, moves all extremities - Allied Health Allied health notes reviewed: nursing Results - Labs CBC & Chem 7: 12/14/21 14:55 12/14/21 07:20 Labs: Laboratory Last Values WBC 12.5 K/mm3 (4.5-11.0) H 12/14/21 07:20 RBC 2.61 M/mm3 (3.65-5.03) L 12/14/21 07:20 Hgb 11.8 gm/dl (10.1-14.3) D 12/14/21 14:55 Hct 35.9 % (30.3-42.9) D 12/14/21 14:55 MCV 87 fl (79-97) 12/14/21 07:20 MCH 29 pg (28-32) 12/14/21 07:20 MCHC 34 % (30-34) 12/14/21 07:20 RDW 17.4 % (13.2-15.2) H 12/14/21 07:20 Plt Count 208 K/mm3 (140-440) 12/14/21 14:55 Lymph % (Auto) 10.4 % (13.4-35.0) L 12/14/21 07:20 [place] % (Auto) 7.1 % (0.0-7.3) 12/14/21 07:20 Eos % (Auto) 1.4 % (0.0-4.3) 12/14/21 07:20 Baso % (Auto) 0.9 % (0.0-1.8) 12/14/21 07:20 Lymph # (Auto) 1.3 K/mm3 (1.2-5.4) 12/14/21 07:20 [place] # (Auto) 0.9 K/mm3 (0.0-0.8) H 12/14/21 07:20 Eos # (Auto) 0.2 K/mm3 (0.0-0.4) 12/14/21 07:20 Baso # (Auto) 0.1 K/mm3 (0.0-0.1) 12/14/21 07:20 Seg Neutrophils % 80.2 % (40.0-70.0) H 12/14/21 07:20 Seg Neutrophils # 10.1 K/mm3 (1.8-7.7) H 12/14/21 07:20 PT 18.0 Sec. (12.2-14.9) H 12/14/21 13:40 INR 1.32 (0.87-1.13) H 12/14/21 13:40 APTT 20.4 Sec. (24.2-36.6) L 12/14/21 13:40 Sodium 137 mmol/L (137-145) 12/14/21 07:20 Potassium 3.9 mmol/L (3.6-5.0) 12/14/21 07:20 Chloride 104.8 mmol/L (98-107) 12/14/21 07:20 Carbon Dioxide 24 mmol/L (22-30) 12/14/21 07:20 Anion Gap 12 mmol/L 12/14/21 07:20 BUN 9 mg/dL (7-17) 12/14/21 07:20 Creatinine 0.5 mg/dL (0.6-1.2) L 12/14/21 07:20 Estimated GFR > 60 ml/min 12/14/21 07:20 BUN/Creatinine Ratio 18 % 12/14/21 07:20 Glucose 104 mg/dL (65-100) H 12/14/21 07:20 Calcium 7.5 mg/dL (8.4-10.2) L 12/14/21 07:20 Total Bilirubin 0.30 mg/dL (0.1-1.2) 12/13/21 18:25 AST 13 units/L (5-40) 12/13/21 18:25 ALT < 5 units/L (7-56) L 12/13/21 18:25 Alkaline Phosphatase 118 units/L (35-129) 12/13/21 18:25 Total Protein 4.6 g/dL (6.3-8.2) L 12/13/21 18:25 Albumin 2.1 g/dL (3.9-5) L 12/13/21 18:25 Albumin/Globulin Ratio 0.8 % 12/13/21 18:25 Blood Type O POSITIVE 12/13/21 20:59 Antibody Screen Negative 12/13/21 20:59 Crossmatch See Detail 12/13/21 20:59 Active Medications - Current Medications Current Medications: Generic Name Dose Route Start Last Admin Trade Name Freq PRN Reason Stop Dose Admin Acetaminophen 650 mg 12/13/21 23:13 Acetaminophen 325 Mg Tab PO Q4H PRN Pain MILD(1-3)/Fever >100.5/GONZALEZ Albuterol 2.5 mg 12/13/21 23:13 Albuterol 2.5 Mg/3 Ml Nebu IH Q3HRT PRN Shortness Of Breath Atorvastatin Calcium 40 mg 12/14/21 10:00 12/14/21 16:25 Atorvastatin 40 Mg Tab PO Not Given DAILY [facility] Carvedilol 25 mg 12/14/21 10:00 12/14/21 16:25 Carvedilol 25 Mg Tab PO Not Given BID [facility] Cilostazol 50 mg 12/14/21 10:00 12/14/21 16:26 Cilostazol 100 Mg Tab PO Not Given BID [facility] Clopidogrel Bisulfate 75 mg 12/14/21 10:00 12/14/21 16:25 Clopidogrel 75 Mg Tab PO Not Given QDAY [facility] Heparin Sodium (Porcine) 1,600 unit 12/14/21 13:30 Heparin 10,000 Units/10 Ml Vial 40 unit/kg (1600 unit) IV Q6H PRN Anti-Xa Assay < 0.1 units/ml Cefepime HCl 1 gm in 100 mls @ 200 mls/hr 12/14/21 13:00 12/14/21 15:43 Cefepime/Ns 1 Gm/100 Ml IV 200 mls/hr Q12H [facility] Administration Protocol Heparin Sodium/Sodium Chloride 25,000 unit in 500 mls @ 12 mls/hr 12/14/21 13:00 12/14/21 15:44 Heparin/ 0.45% Nacl-25,000 Unit/500 Ml IV 600 units/hr TITR SRAVAN 12 mls/hr Administration Protocol 600 UNITS/HR Vancomycin HCl 1 gm in 250 mls @ 166.667 mls/hr 12/15/21 06:00 Vancomycin/Ns 1 Gm/250 Ml IV Q24H SRAVAN Lactated Ringer's 1,000 mls @ 125 mls/hr 12/14/21 16:00 12/14/21 15:43 Lactated Ringers IV 125 mls/hr DIRECT SRAVAN Administration Morphine Sulfate 2 mg 12/13/21 23:13 12/14/21 01:23 Morphine 2 Mg/1 Ml Inj IV 2 mg Q4H PRN Administration Pain, Moderate (4-6) Morphine Sulfate 4 mg 12/13/21 23:13 12/14/21 05:07 Morphine 4 Mg/1 Ml Inj IV 4 mg Q4H PRN Administration Pain , Severe (7-10) Naloxone HCl 0.1 mg 12/14/21 15:02 Naloxone 0.4 Mg/1 Ml Inj IV Q2MIN PRN Res Rate </= 8 or 02 SAT < 92% Ondansetron HCl 4 mg 12/14/21 15:02 Ondansetron 4 Mg/2 Ml Inj IV Q8H PRN Nausea And Vomiting Pantoprazole Sodium 40 mg 12/14/21 16:30 12/14/21 15:44 Pantoprazole 40 Mg Tab PO 40 mg BIDAC SRAVAN Administration Sodium Chloride 10 ml 12/13/21 23:13 Sodium Chloride 0.9% 10 Ml Flush Syringe IV PRN PRN LINE FLUSH Nutrition/Malnutrition Assess - Dietary Evaluation Nutrition/Malnutrition Findings: Nutrition Notes Start: 12/14/21 12:00 Freq: Status: Active Protocol: Document 12/14/21 12:00 MERARI (Rec: 12/14/21 12:15 MERARI [email or web address]) Nutrition Notes Need for Assessment generated from: Low BMI Initial or Follow up Assessment Current Diagnosis Hypertension Other Pertinent Diagnosis PVD s/p L-FP Bypass, L-FP Bypass Occlusion, L-Groin Infection, 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 Labs/Tests 12/14: Crea 0.5, Glu 104, Ca 7 .5. Pertinent Medications 12/14: Nutritionally unremarkable. 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 Weight Status Underweight Subjective/Other Information RD consult for Low BMI assessment. No reports available on Pt's PO intake of meals at the time , will assess at F/U. Pt is on Room Air, O2 saturation @ 100%, according to Physical Assessment History notes. Pt presents a L-Groin infection as sign of concern for skin risk at this time, according to Physical Assessment History notes. Event on 12/14: Bleeding from L-F incision, patch breakdown; Pt brougth immediatelly to the OR, according to Event note. Still ongoing at the time. Pt's Low BMI seems to correspond to a natural body composition, and not related to a sudden loss of body weight nor chronic malnutrition, since no signs of concern were mentioned in the Physical Assessment History or the Progress notes. Percent of energy/protein needs met: Prescribed Cardiac Diet provides for energy/protein needs (2,230 Kcal/85 g) during LOS. Burn Absent Trauma Absent GI Symptoms None Food Allergy No Skin Integrity/Comment L-Groin infection. Minimum of two criteria No Fluid Accumulation N/A Reduced Management Intern Strength N/A (non-severe) Protein-Calorie Malnutrition N\A #1 Nutrition Diagnosis Underweight Comments: Pt's Low BMI seems to correspond to a natural body composition, and not related to a sudden loss of body weight nor chronic malnutrition, since no signs of concern were mentioned in the Physical Assessment History or the Progress notes. Etiology Uncertain. As Evidenced by Signs and Symptoms BMI: 16.5 Kg/M2. Is patient on ventilator? No Is Patient Ambulatory and/or Out of Bed No REE-([facility]-confined to bed) 1134.852 Kcal/Kg value to use for calculation 30 Approximate Energy Requirements Using 1225 kcal/Kg Calculation Used for Recommendations Kcal/kg Additional Notes Protein: 1.5-2 g/Kg ABW; 62-84 g/day. Fluids: 1 ml/Kcal, or as per MD. Nutrition Intervention Change Diet Order: Continue Cardiac Diet. Goal #1 Adjust the dietary intervention to better serve Pt's needs and clinical conditions during LOS. Follow-Up By: 12/15/21 Additional Comments Continue monitoring food tolerance, %PO intake of meals , and BM.
[2021-12-15] MEDS: CEFEPIME/NS 1 GM/100 ML 1 GM/100 ML BAG IV SCH ×2 (01:46→13:43)
[2021-12-15] MEDS: VANCOMYCIN/NS 1 GM/250 ML 1 GM/250 ML BAG IV SCH (05:03)
[2021-12-15 05:29] LABS: Blood Urea Nitrogen 12 mg/dL (7-17); Calcium 6.8 mg/dL (8.4-10.2); Hemolysis Index 13
[2021-12-15 05:30] LABS: BUN/Creatinine Ratio 17
[2021-12-15] MEDS: CLOPIDOGREL 75 MG TAB PO SCH (09:26)
[2021-12-15] MEDS: MORPHINE 2 MG/1 ML INJ IV PRN ×2 (09:26→20:23)
[2021-12-15] MEDS: ONDANSETRON 4 MG/2 ML INJ IV PRN (09:26)
[2021-12-15] MEDS: PANTOPRAZOLE 40 MG TAB PO SCH ×2 (09:27→18:06)
[2021-12-15] MEDS: LACTATED RINGERS 1,000 ML IV SCH (09:34)
[2021-12-15 10:37] LABS: Basophils # (Auto) 0.2 K/mm3 (0.0-0.1); Basophils % (Auto) 1.2 % (0.0-1.8); Eosinophils # (Auto) 0.1 K/mm3 (0.0-0.4); Eosinophils % (Auto) 0.6 % (0.0-4.3); Hematocrit 27.2 % (30.3-42.9); Lymphocytes # (Auto) 1.9 K/mm3 (1.2-5.4); Lymphocytes % (Auto) 13.4 % (13.4-35.0); Mean Corpuscular HGB Conc 33 % (30-34); Mean Corpuscular Volume 88 fl (79-97); Monocytes # (Auto) 0.8 K/mm3 (0.0-0.8); Monocytes % (Auto) 5.9 % (0.0-7.3); Platelet Count 258 K/mm3 (140-440); Red Blood Count 3.11 M/mm3 (3.65-5.03); Red Cell Distribution Width 17.1 % (13.2-15.2)
--- NOTE | 2021-12-15 13:12 | Progress Note ---
<MACIEJJordenGALESebas - Last Filed: 12/15/21 13:12> Assessment and Plan Assessment and plan: This is a 56-year-old female with PVD, HTN, HLD, anemia, neuropathy admitted with left femoral artery injury resulting in hemorrhage Neuro: h/o CVA -Reorientation as needed -Maintain sleep-wake cycle -As needed analgesia Cardiac: h/o HTN, HLD, CAD -Hold home antihypertensive regimen as patient is currently borderline hypotensive -Blood pressure monitor per protocol -Lipitor Respiratory: h/o nicotine abuse -Currently on room air -Supplemental oxygen as needed -SPO2 monitoring -Pulmonary hygiene GI: Moderate Protein calorie malnutrition -24 hours + 1670 mL -PPI -Cardiac diet with supplements -BR: colace : Hyperchloremic Metabolic acidosis -Monitor intake and output -Renally dose medications -Avoid nephrotoxic medications -MIVF LR -Coorected Ca 8.32 -Trend BMP ID: ? Left femoral arterial infection -Infectious disease consulted, appreciate recommendation -Antibiotic therapy with cefepime and vancomycin -f/u blood culture -Monitor WBC and temperature curve Endo: NAD -Avoid hypoglycemia Heme: ABLA, (bleeding with exception of left common femoral arterial patch, Leukocytosis, h/o severe PVD s/p left femoral-popliteal bypass with fasciotomy, right lower extremity right revascularization -Presents with a hemoglobin of 7.6-> 11.1 -CT abdomen/pelvis showed small amount of active hemorrhage in the left inguinal region and a large renal hematoma, excessive swelling throughout the entire left leg and 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 -S/p 6 units PRBC, 1 FFP -Vascular surgery and CCM consulted, appreciate recommendations -S/p exploration of left groin with open thrombectomy of left SFA, repair of left common femoral artery, coverage of left femoral artery with muscle flap and wound VAC placement -Continue Pletal, plavix -Heparin gtt -H/H q 6 -Trend CBC -Transfuse hemoglobin less than 7 -Hold Eliquis and aspirin -SCDs to BLE while in bed Critical Care Billing: The high probability of a clinically significant, sudden or life threatening deterioration of the [vascular] system(s) required my full and direct attention, intervention and personal management. The aggregate critical care time was [60] minutes. This time is in addition to time spent performing reported procedures but includes the following: [x] Data Review and interpretation [x] Patient assessment and monitoring of vital signs [x] Documentation [x] Medication orders and management Disposition Plan: icu Total Time Spent with Patient (Minutes): 60 History Interval history: This is a 56-year-old female with PVD s/p femoral-popliteal bypass surgery c/b compartment syndrome s/p fasciotomy, occlusion infection, HTN, CVA, HLD, anemia, neuropathy presented to the emergency department on 12/13 with hemorrhage from her wound VAC site after her home health care nurse changed her wound VAC per patient. Work-up in the emergency department revealed hemoglobin of 6.6 and she was transfused 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 Vascular surgery was consulted and patient was taken to chemical lab technician for repair of femoral artery injury. Patient was admitted to the hospitalist service with consult to CCM. Hospital course to date 12/15: Currently in CCU, decreased urine output reported overnight. We will continue lactated Ringer's. Continue serial H&H. Hospitalist Physical - Constitutional Vitals: Temp Pulse Resp BP Pulse Ox 97.6 F 86 14 113/63 78 L 12/15/21 07:36 12/15/21 10:00 12/15/21 10:00 12/15/21 10:00 12/15/21 10:00 General appearance: Present: no acute distress, well-nourished Results - Labs CBC & Chem 7: 12/15/21 09:53 12/15/21 04:14 Labs: Laboratory Last Values WBC 14.3 K/mm3 (4.5-11.0) H 12/15/21 09:53 RBC 3.11 M/mm3 (3.65-5.03) L 12/15/21 09:53 Hgb 9.0 gm/dl (10.1-14.3) L 12/15/21 09:53 Hct 27.2 % (30.3-42.9) L D 12/15/21 09:53 MCV 88 fl (79-97) 12/15/21 09:53 MCH 29 pg (28-32) 12/15/21 09:53 MCHC 33 % (30-34) 12/15/21 09:53 RDW 17.1 % (13.2-15.2) H 12/15/21 09:53 Plt Count 258 K/mm3 (140-440) 12/15/21 09:53 Lymph % (Auto) 13.4 % (13.4-35.0) 12/15/21 09:53 [place] % (Auto) 5.9 % (0.0-7.3) 12/15/21 09:53 Eos % (Auto) 0.6 % (0.0-4.3) 12/15/21 09:53 Baso % (Auto) 1.2 % (0.0-1.8) 12/15/21 09:53 Lymph # (Auto) 1.9 K/mm3 (1.2-5.4) 12/15/21 09:53 [place] # (Auto) 0.8 K/mm3 (0.0-0.8) 12/15/21 09:53 Eos # (Auto) 0.1 K/mm3 (0.0-0.4) 12/15/21 09:53 Baso # (Auto) 0.2 K/mm3 (0.0-0.1) H 12/15/21 09:53 Seg Neutrophils % 78.9 % (40.0-70.0) H 12/15/21 09:53 Seg Neutrophils # 11.3 K/mm3 (1.8-7.7) H 12/15/21 09:53 PT 18.0 Sec. (12.2-14.9) H 12/14/21 13:40 INR 1.32 (0.87-1.13) H 12/14/21 13:40 APTT 20.4 Sec. (24.2-36.6) L 12/14/21 13:40 Heparin Anti-Xa Level 0.66 U.I./ml (0.3-0.7) 12/14/21 22:43 Sodium 136 mmol/L (137-145) L 12/15/21 04:14 Potassium 4.2 mmol/L (3.6-5.0) 12/15/21 04:14 Chloride 107.3 mmol/L (98-107) H 12/15/21 04:14 Carbon Dioxide 18 mmol/L (22-30) L 12/15/21 04:14 Anion Gap 15 mmol/L 12/15/21 04:14 BUN 12 mg/dL (7-17) 12/15/21 04:14 Creatinine 0.7 mg/dL (0.6-1.2) 12/15/21 04:14 Estimated GFR > 60 ml/min 12/15/21 04:14 BUN/Creatinine Ratio 17 % 12/15/21 04:14 Glucose 99 mg/dL (65-100) 12/15/21 04:14 Calcium 6.8 mg/dL (8.4-10.2) L 12/15/21 04:14 Total Bilirubin 0.30 mg/dL (0.1-1.2) 12/13/21 18:25 AST 13 units/L (5-40) 12/13/21 18:25 ALT < 5 units/L (7-56) L 12/13/21 18:25 Alkaline Phosphatase 118 units/L (35-129) 12/13/21 18:25 Total Protein 4.6 g/dL (6.3-8.2) L 12/13/21 18:25 Albumin 2.1 g/dL (3.9-5) L 12/13/21 18:25 Albumin/Globulin Ratio 0.8 % 12/13/21 18:25 Blood Type O POSITIVE 12/13/21 20:59 Antibody Screen Negative 12/13/21 20:59 Crossmatch See Detail 12/13/21 20:59 Victor/IV: Voiding Method Indwelling Catheter Active Medications - Current Medications Current Medications: Generic Name Dose Route Start Last Admin Trade Name Freq PRN Reason Stop Dose Admin Acetaminophen 650 mg 12/13/21 23:13 Acetaminophen 325 Mg Tab PO Q4H PRN Pain MILD(1-3)/Fever >100.5/GONZALEZ Albuterol 2.5 mg 12/13/21 23:13 Albuterol 2.5 Mg/3 Ml Nebu IH Q3HRT PRN Shortness Of Breath Atorvastatin Calcium 40 mg 12/14/21 10:00 12/15/21 09:27 Atorvastatin 40 Mg Tab PO 40 mg DAILY SRAVAN Administration Cilostazol 50 mg 12/14/21 10:00 12/14/21 21:31 Cilostazol 100 Mg Tab PO 50 mg BID SRAVAN Administration Clopidogrel Bisulfate 75 mg 12/14/21 10:00 12/15/21 09:26 Clopidogrel 75 Mg Tab PO 75 mg QDAY SRAVAN Administration Heparin Sodium (Porcine) 1,600 unit 12/14/21 13:30 Heparin 10,000 Units/10 Ml Vial 40 unit/kg (1600 unit) IV Q6H PRN Anti-Xa Assay < 0.1 units/ml Cefepime HCl 1 gm in 100 mls @ 200 mls/hr 12/14/21 13:00 12/15/21 01:46 Cefepime/Ns 1 Gm/100 Ml IV 200 mls/hr Q12H SRAVAN Administration Protocol Heparin Sodium/Sodium Chloride 25,000 unit in 500 mls @ 12 mls/hr 12/14/21 13:00 12/14/21 23:17 Heparin/ 0.45% Nacl-25,000 Unit/500 Ml IV 600 units/hr TITR SRAVAN 12 mls/hr Titration Protocol 600 UNITS/HR Vancomycin HCl 1 gm in 250 mls @ 166.667 mls/hr 12/15/21 06:00 12/15/21 05:03 Vancomycin/Ns 1 Gm/250 Ml IV 166.667 mls/hr Q24H SRAVAN Administration Lactated Ringer's 1,000 mls @ 125 mls/hr 12/14/21 16:00 12/15/21 09:34 Lactated Ringers IV 125 mls/hr DIRECT SRAVAN Administration Morphine Sulfate 2 mg 12/13/21 23:13 12/15/21 09:26 Morphine 2 Mg/1 Ml Inj IV 2 mg Q4H PRN Administration Pain, Moderate (4-6) Morphine Sulfate 4 mg 12/13/21 23:13 12/14/21 21:35 Morphine 4 Mg/1 Ml Inj IV 4 mg Q4H PRN Administration Pain , Severe (7-10) Naloxone HCl 0.1 mg 12/14/21 15:02 Naloxone 0.4 Mg/1 Ml Inj IV Q2MIN PRN Res Rate </= 8 or 02 SAT < 92% Ondansetron HCl 4 mg 12/14/21 15:02 12/15/21 09:26 Ondansetron 4 Mg/2 Ml Inj IV 4 mg Q8H PRN Administration Nausea And Vomiting Pantoprazole Sodium 40 mg 12/14/21 16:30 12/15/21 09:27 Pantoprazole 40 Mg Tab PO 40 mg BIDAC SRAVAN Administration Sodium Chloride 10 ml 12/13/21 23:13 12/14/21 21:32 Sodium Chloride 0.9% 10 Ml Flush Syringe IV 10 ml PRN PRN Administration LINE FLUSH Nutrition/Malnutrition Assess - Dietary Evaluation Nutrition/Malnutrition Findings: Nutrition Notes Start: 12/14/21 12:00 Freq: Status: Active Protocol: Document 12/15/21 09:48 MERARI (Rec: 12/15/21 10:10 MERARI [id number]) Nutrition Notes Initial or Follow up Brief Note Current Diagnosis Hypertension Other Pertinent Diagnosis PVD s/p L-FP Bypass, L-FP Bypass Occlusion, L-Groin Infection, L-VAULT MANAGER Injury Current Diet Cardiac Diet (since 12/13), D Suppl (since 12/15). Height 5 ft 2 in Weight 40.823 kg [place] Body Weight (kg) 50.00 BMI 16.5 Weight change and time frame No body weight change reported in 1 day. Weight Status Underweight Subjective/Other Information RD consult for dietary supplementation assessment. No reports available on Pt's PO intake of meals at the time , will assess at F/U. prescribed dietary supplements without RD consult , I will continue the prescription to compensate for possible poor or insufficient PO intake of meals, and to support wound healing processes, along with compensation for blood loss during LOS. Pt is on Room Air, O2 saturation @ 100%, according to Physical Assessment History notes. Procedure on 12/14: Repair of L-VAULT MANAGER w/bovine pericardial patch, woundVac placement, well tolerated, according to Operative Report notes. Percent of energy/protein needs met: Prescribed Cardiac Diet provides for energy/protein needs (2,230 Kcal/85 g) during LOS; additionally, Dietary Supplements will compensate for possible poor or insufficient PO intake of meals with 1,050 Kcal and 60 g of protein. #2 Nutrition Diagnosis Increased nutrient needs ( specify in comment below) Comments: Protein to support wound healing and compensate for blood loss. Etiology L-Groin Infection, L-VAULT MANAGER Injury, As Evidenced by Signs and Symptoms Procedure on 12/14: Repair of L-VAULT MANAGER w/bovine pericardial patch, woundVac placement, well tolerated, according to Operative Report notes. #1 Nutrition Diagnosis Underweight Diagnosis Progress(for reassessment Continues documentation) Is patient on ventilator? No Is Patient Ambulatory and/or Out of Bed No REE-([place]-confined to bed) 1134.852 Kcal/Kg value to use for calculation 30 Approximate Energy Requirements Using 1225 kcal/Kg Calculation Used for Recommendations Kcal/kg Additional Notes Protein: 1.5-2 g/Kg ABW; 62-84 g/day. Fluids: 1 ml/Kcal, or as per MD. Nutrition Intervention Change Diet Order: Continue Cardiac Diet. Add Supplement/Snack (indicate name/kcal Start 8 fl oz Ensure Enlive; /protein ) TID. Provides kCal: 1,050 Provides Protein (gm) 60 Goal #1 Compensate, through dietary supplementation, for possible poor or insufficient PO intake of meals during LOS. Goal #2 Support, through dietary supplementation, wound healing processes during LOS. Goal #3 Adjust the dietary intervention to better serve Pt's needs and clinical conditions during LOS. Follow-Up By: 12/22/21 Additional Comments Continue monitoring food tolerance, %PO intake of meals , dietary supplements, and BM. <ALIZA SWANSON - Last Filed: 12/26/21 07:35> History Interval history: I saw and evaluated the patient. Discussed with the nurse practitioner and agree with their findings and plan as documented in this note. Hospitalist Physical - Constitutional Vitals: Temp Pulse Resp BP Pulse Ox 98.5 F 78 16 160/74 98 12/26/21 04:00 12/26/21 06:00 12/26/21 06:00 12/26/21 06:00 12/26/21 06:00 Results - Labs CBC & Chem 7: 12/26/21 04:18 12/26/21 04:18 Labs: Laboratory Last Values WBC 5.9 K/mm3 (4.5-11.0) 12/26/21 04:18 RBC 2.71 M/mm3 (3.65-5.03) L 12/26/21 04:18 Hgb 8.1 gm/dl (10.1-14.3) L 12/26/21 04:18 Hct 24.0 % (30.3-42.9) L 12/26/21 04:18 MCV 89 fl (79-97) 12/26/21 04:18 MCH 30 pg (28-32) 12/26/21 04:18 MCHC 34 % (30-34) 12/26/21 04:18 RDW 21.4 % (13.2-15.2) H 12/26/21 04:18 Plt Count 346 K/mm3 (140-440) 12/26/21 04:18 Lymph % (Auto) 15.4 % (13.4-35.0) 12/17/21 05:00 [place] % (Auto) 8.9 % (0.0-7.3) H 12/17/21 05:00 Eos % (Auto) 1.7 % (0.0-4.3) 12/17/21 05:00 Baso % (Auto) 1.1 % (0.0-1.8) 12/17/21 05:00 Lymph # (Auto) 1.3 K/mm3 (1.2-5.4) 12/17/21 05:00 [place] # (Auto) 0.7 K/mm3 (0.0-0.8) 12/17/21 05:00 Eos # (Auto) 0.1 K/mm3 (0.0-0.4) 12/17/21 05:00 Baso # (Auto) 0.1 K/mm3 (0.0-0.1) 12/17/21 05:00 Seg Neutrophils % 72.9 % (40.0-70.0) H 12/17/21 05:00 Seg Neutrophils # 6.0 K/mm3 (1.8-7.7) 12/17/21 05:00 PT 16.0 Sec. (12.2-14.9) H 12/21/21 04:43 INR 1.12 (0.87-1.13) 12/21/21 04:43 APTT 38.3 Sec. (24.2-36.6) H 12/21/21 04:43 Fibrinogen 399 mg/dl (211-480) 12/19/21 12:50 Heparin Anti-Xa Level 0.66 U.I./ml (0.3-0.7) 12/14/21 22:43 Sodium 136 mmol/L (137-145) L 12/26/21 04:18 Potassium 3.6 mmol/L (3.6-5.0) 12/26/21 04:18 Chloride 100.7 mmol/L (98-107) 12/26/21 04:18 Carbon Dioxide 30 mmol/L (22-30) 12/26/21 04:18 Anion Gap 9 mmol/L 12/26/21 04:18 BUN 7 mg/dL (7-17) 12/26/21 04:18 Creatinine 0.5 mg/dL (0.6-1.2) L 12/26/21 04:18 Estimated GFR > 60 ml/min 12/26/21 04:18 BUN/Creatinine Ratio 14 % 12/26/21 04:18 Glucose 76 mg/dL (65-100) 12/26/21 04:18 Calcium 7.5 mg/dL (8.4-10.2) L 12/26/21 04:18 Phosphorus 2.90 mg/dL (2.5-4.5) 12/25/21 04:00 Magnesium 1.90 mg/dL (1.7-2.3) 12/26/21 04:18 Total Bilirubin 0.30 mg/dL (0.1-1.2) 12/13/21 18:25 AST 13 units/L (5-40) 12/13/21 18:25 ALT < 5 units/L (7-56) L 12/13/21 18:25 Alkaline Phosphatase 118 units/L (35-129) 12/13/21 18:25 Total Protein 4.6 g/dL (6.3-8.2) L 12/13/21 18:25 Albumin 2.1 g/dL (3.9-5) L 12/13/21 18:25 Albumin/Globulin Ratio 0.8 % 12/13/21 18:25 Vancomycin Trough 15.0 ug/mL (5.0-20.0) 12/26/21 04:18 Blood Type O POSITIVE 12/19/21 17:25 Antibody Screen Negative 12/19/21 17:25 Crossmatch See Detail 12/19/21 17:25 Victor/IV: Voiding Method Diaper Active Medications - Current Medications Current Medications: Generic Name Dose Route Start Last Admin Trade Name Freq PRN Reason Stop Dose Admin Acetaminophen 650 mg 12/13/21 23:13 12/21/21 21:50 Acetaminophen 325 Mg Tab PO 650 mg Q4H PRN Administration Pain MILD(1-3)/Fever >100.5/GONZALEZ Albuterol 2.5 mg 12/13/21 23:13 Albuterol 2.5 Mg/3 Ml Nebu IH Q3HRT PRN Shortness Of Breath Amlodipine Besylate 5 mg 12/19/21 10:00 12/25/21 09:22 Amlodipine 5 Mg Tab PO Not Given QDAY SRAVAN Apixaban 2.5 mg 12/16/21 22:00 12/25/21 21:01 Apixaban 2.5 Mg Tab PO 2.5 mg Q12HR SRAVAN Administration Protocol Atorvastatin Calcium 40 mg 12/14/21 10:00 12/25/21 09:23 Atorvastatin 40 Mg Tab PO 40 mg DAILY SRAVAN Administration Cilostazol 50 mg 12/14/21 10:00 12/25/21 21:02 Cilostazol 100 Mg Tab PO 50 mg BID SRAVAN Administration Clopidogrel Bisulfate 75 mg 12/14/21 10:00 12/25/21 09:22 Clopidogrel 75 Mg Tab PO 75 mg QDAY SRAVAN Administration Docusate Sodium 100 mg 12/22/21 10:00 12/25/21 21:02 Docusate Sodium 100 Mg Cap PO 100 mg BID SRAVAN Administration Gabapentin 100 mg 12/19/21 10:00 12/25/21 21:01 Gabapentin 100 Mg Cap PO 100 mg BID SRAVAN Administration Hydralazine HCl 10 mg 12/17/21 14:23 12/20/21 18:09 Hydralazine 20 Mg/1 Ml Inj IV 10 mg Q4H PRN Administration Hypertension Cefepime HCl 2 gm in 100 mls @ 200 mls/hr 12/18/21 22:00 12/25/21 21:01 Cefepime/Ns 2 Gm/100 Ml IV 01/05/22 22:29 200 mls/hr Q12HR SRAVAN Administration Protocol Vancomycin HCl 1,250 mg/ 275 mls @ 166.667 mls/hr 12/21/21 06:00 12/26/21 06:11 Sodium Chloride IV 01/05/22 07:38 166.667 mls/hr Q24H SRAVAN Administration Morphine Sulfate 2 mg 12/13/21 23:13 12/24/21 10:53 Morphine 2 Mg/1 Ml Inj IV 2 mg Q4H PRN Administration Pain, Moderate (4-6) Morphine Sulfate 4 mg 12/13/21 23:13 12/26/21 04:41 Morphine 4 Mg/1 Ml Inj IV 4 mg Q4H PRN Administration Pain , Severe (7-10) Naloxone HCl 0.1 mg 12/14/21 15:02 Naloxone 0.4 Mg/1 Ml Inj IV Q2MIN PRN Res Rate </= 8 or 02 SAT < 92% Ondansetron HCl 4 mg 12/14/21 15:02 12/25/21 05:13 Ondansetron 4 Mg/2 Ml Inj IV 4 mg Q8H PRN Administration Nausea And Vomiting Pantoprazole Sodium 40 mg 12/14/21 16:30 12/25/21 16:15 Pantoprazole 40 Mg Tab PO 40 mg BIDAC SRAVAN Administration Senna 17.2 mg 12/22/21 22:00 12/25/21 21:01 Sennosides 8.6 Mg Tab PO 17.2 mg QHS SRAVAN Administration Sodium Chloride 10 ml 12/13/21 23:13 12/24/21 22:02 Sodium Chloride 0.9% 10 Ml Flush Syringe IV 10 ml PRN PRN Administration LINE FLUSH Trazodone HCl 50 mg 12/19/21 22:00 12/25/21 21:02 Trazodone 50 Mg Tab PO 50 mg QHS SRAVAN Administration Venlafaxine HCl 75 mg 12/17/21 10:00 12/25/21 09:27 Venlafaxine 75 Mg Tab PO 75 mg DAILY SRAVAN Administration Nutrition/Malnutrition Assess - Dietary Evaluation Nutrition/Malnutrition Findings: Nutrition Notes Start: 12/14/21 12:00 Freq: Status: Active Protocol: Document 12/21/21 11:08 MERARI (Rec: 12/21/21 11:48 MERARI [id number]) Nutrition Notes Initial or Follow up Reassessment Current Diagnosis Hypertension,Malnutrition, Hyperlipidemia Other Pertinent Diagnosis PVD s/p L-FP Bypass, L-FP Bypass Occlusion, L-Groin Infection, L-VAULT MANAGER Injury Current Diet Regular Diet (since 12/16), D Suppl (since 12/15). Labs/Tests 12/21: Cl 109.2, Ca 7.5, Mg 1. 6. Pertinent Medications 12/21: Nutritionally unremarkable. Height 5 ft 2 in Weight 40.823 kg [place] Body Weight (kg) 50.00 BMI 16.5 Weight change and time frame No body weight change reported in 1 week. Weight Status Underweight Subjective/Other Information RD consult for malnutrition assessment. Pt's PO intake has imroved, but still Poor (50%) and fairly tolerated, Pt is also taking her dietary supplements , accvording to RN over the phone. Pt is on Room Air, O2 saturation @ 100%, according to Physical Assessment History notes. Pt has missing teeth, according to Physical Assessment History notes. Pt presents L-LE pitting edema 3+, according to Physical Assessment History notes. Pt's last BM was on 12/17, according to Physical Assessment History notes. Procedure on 12/20: Emergent angioplasty, evacuation of L- groin hematoma, and WoundVac replacement, well tolerated, according to Progress notes. Plans for discharge to LTAC or Rehab on 12/21, according to Progress notes. Percent of energy/protein needs met: Prescribed Regular Diet provides for energy/protein needs (2,289 Kcal/89 g) during LOS; additionally, Dietary Supplements will compensate for possible poor or insufficient PO intake of meals with 1,240 Kcal and 65 g of protein. Burn Absent Trauma Absent GI Symptoms None Food Allergy No Skin Integrity/Comment Several L-LE wounds. Current % PO Poor (25-49%) Minimum of two criteria No Fluid Accumulation N/A Reduced [place] Strength N/A (non-severe) Protein-Calorie Malnutrition N\A #2 Nutrition Diagnosis Increased nutrient needs ( specify in comment below) Comments: Protein to support wound healing and compensate for blood loss. Procedure on 12/20: Emergent angioplasty, evacuation of L- groin hematoma, and WoundVac replacement, well tolerated, according to Progress notes. Diagnosis Progress(for reassessment Continues documentation) #1 Nutrition Diagnosis Underweight Diagnosis Progress(for reassessment Continues documentation) Is patient on ventilator? No Is Patient Ambulatory and/or Out of Bed No REE-([facility]-confined to bed) 1134.852 Kcal/Kg value to use for calculation 30 Approximate Energy Requirements Using 1225 kcal/Kg Calculation Used for Recommendations Kcal/kg Additional Notes Protein: 1.5-2 g/Kg ABW; 62-84 g/day. Fluids: 1 ml/Kcal, or as per MD. Nutrition Intervention Change Diet Order: Continue Regular Diet as tolerated. Add Supplement/Snack (indicate name/kcal Continue 8 fl oz Ensure Enlive /protein ) ; TID. Start 28.8 g pkt Jeremy; BID. Provides kCal: 1,240 Provides Protein (gm) 65 Goal #1 Compensate, through dietary supplementation, for possible poor or insufficient PO intake of meals during LOS. Goal #2 Support, through dietary supplementation, wound healing processes during LOS. Goal #3 Adjust the dietary intervention to better serve Pt's needs and clinical conditions during LOS. Follow-Up By: 12/28/21 Additional Comments Continue monitoring food tolerance, %PO intake of meals , dietary supplements, and BM.
[2021-12-15] MEDS: CILOSTAZOL 100 MG TAB PO SCH ×2 (13:43→21:53)
[2021-12-15] MEDS: MORPHINE 4 MG/1 ML INJ IV PRN ×3 (13:44→21:54)
--- NOTE | 2021-12-15 14:14 | Progress Note ---
Assessment and Plan Postoperative day #1 The patient is doing well without any complaints. Will start dressing changes on the thigh and calf wound with the plan to place the VAC on the wounds when the groin wound VAC is taken down in 1 week. Increase activity with physical therapy. The patient is actively attempting to increase her nutritional intake which I have encouraged her to increase her protein intake with Ensure shakes in addition to her meals. Discussed the need for acute rehab upon discharge which the patient is in agreement. Subjective Date of service: 12/15/21 Interval history: Postoperative day #1 status post left groin aspiration with patch angioplasty of the left femoral artery for hemorrhage. The patient currently has no complaints. Objective - Constitutional Vitals: Vital Signs - 12hr 12/15/21 12/15/21 12/15/21 02:21 02:30 02:41 Temperature Pulse Rate 79 86 85 Respiratory 10 L 9 L 14 Rate Respiratory Rate [Left Leg] Blood Pressure 109/60 105/61 105/61 O2 Sat by Pulse 98 100 Oximetry 12/15/21 12/15/21 12/15/21 02:51 03:00 03:11 Temperature Pulse Rate 81 86 86 Respiratory 10 L 10 L 9 L Rate Respiratory Rate [Left Leg] Blood Pressure 105/61 112/61 112/61 O2 Sat by Pulse 98 70 L 99 Oximetry 12/15/21 12/15/21 12/15/21 03:21 03:30 03:41 Temperature Pulse Rate 80 87 86 Respiratory 7 L 8 L 8 L Rate Respiratory Rate [Left Leg] Blood Pressure 112/61 124/64 124/64 O2 Sat by Pulse 98 98 99 Oximetry 12/15/21 12/15/21 12/15/21 03:51 03:55 04:00 Temperature 97.4 F L Pulse Rate 80 90 80 Respiratory 10 L 10 L Rate Respiratory Rate [Left Leg] Blood Pressure 124/64 122/61 O2 Sat by Pulse 97 98 96 Oximetry 12/15/21 12/15/21 12/15/21 04:11 04:21 04:30 Temperature Pulse Rate 86 86 85 Respiratory 9 L 15 11 L Rate Respiratory Rate [Left Leg] Blood Pressure 122/61 122/61 117/59 O2 Sat by Pulse 97 97 98 Oximetry 12/15/21 12/15/21 12/15/21 04:41 04:51 05:00 Temperature Pulse Rate 85 85 80 Respiratory 8 L 10 L 12 Rate Respiratory Rate [Left Leg] Blood Pressure 117/59 117/59 115/54 O2 Sat by Pulse 99 99 100 Oximetry 12/15/21 12/15/21 12/15/21 05:11 05:21 05:30 Temperature Pulse Rate 79 78 86 Respiratory 11 L 8 L 15 Rate Respiratory Rate [Left Leg] Blood Pressure 115/54 115/54 119/61 O2 Sat by Pulse 100 100 90 Oximetry 12/15/21 12/15/21 12/15/21 05:41 05:51 06:00 Temperature Pulse Rate 77 85 84 Respiratory 15 9 L 8 L Rate Respiratory Rate [Left Leg] Blood Pressure 119/61 119/61 105/51 O2 Sat by Pulse 97 100 100 Oximetry 12/15/21 12/15/21 12/15/21 06:11 06:21 06:30 Temperature Pulse Rate 81 83 83 Respiratory 7 L 9 L 7 L Rate Respiratory Rate [Left Leg] Blood Pressure 105/51 105/51 103/50 O2 Sat by Pulse 99 99 98 Oximetry 12/15/21 12/15/21 12/15/21 06:41 06:51 07:00 Temperature Pulse Rate 79 83 83 Respiratory 8 L 9 L 11 L Rate Respiratory 18 Rate [Left Leg] Blood Pressure 103/50 103/50 109/53 O2 Sat by Pulse 100 99 98 Oximetry 12/15/21 12/15/21 12/15/21 07:11 07:21 07:30 Temperature Pulse Rate 83 77 75 Respiratory 13 13 13 Rate Respiratory Rate [Left Leg] Blood Pressure 109/53 109/53 108/51 O2 Sat by Pulse 100 100 100 Oximetry 12/15/21 12/15/21 12/15/21 07:36 07:41 07:46 Temperature 97.6 F Pulse Rate 82 Respiratory 8 L Rate Respiratory Rate [Left Leg] Blood Pressure 109/53 O2 Sat by Pulse 99 99 Oximetry 12/15/21 12/15/21 12/15/21 08:00 09:00 10:00 Temperature Pulse Rate 82 78 86 Respiratory 12 14 14 Rate Respiratory Rate [Left Leg] Blood Pressure 119/55 113/51 113/63 O2 Sat by Pulse 97 100 78 L Oximetry 12/15/21 12/15/21 12/15/21 11:00 12:00 13:01 Temperature 97.4 F L Pulse Rate 74 80 85 Respiratory 11 L 21 16 Rate Respiratory Rate [Left Leg] Blood Pressure 111/52 114/54 117/56 O2 Sat by Pulse 100 99 99 Oximetry General appearance: Present: no acute distress, other (Eating during the exam) - Neck Neck: supple Extremities: pulses intact (Dopplerable left DP and PT), normal temperature (Left foot is warm and well-perfused) Extremity abnormal: other (Left groin wound VAC is in place with an adequate seal) - Gastrointestinal General gastrointestinal: Present: soft, non-tender, non-distended - Labs CBC & Chem 7: 12/15/21 09:53 12/15/21 04:14 Labs: Abnormal lab results 12/13/21 12/14/21 12/15/21 Range/Units 20:59 13:40 04:14 WBC (4.5-11.0) K/mm3 RBC (3.65-5.03) M/mm3 Hgb (10.1-14.3) gm/dl Hct (30.3-42.9) % RDW (13.2-15.2) % Baso # (Auto) (0.0-0.1) K/mm3 Seg Neutrophils % (40.0-70.0) % Seg Neutrophils # (1.8-7.7) K/mm3 PT 18.0 H (12.2-14.9) Sec. INR 1.32 H (0.87-1.13) APTT 20.4 L (24.2-36.6) Sec. Sodium 136 L (137-145) mmol/L Chloride 107.3 H (98-107) mmol/L Carbon Dioxide 18 L (22-30) mmol/L Calcium 6.8 L (8.4-10.2) mg/dL Crossmatch See Detail 12/15/21 Range/Units 09:53 WBC 14.3 H (4.5-11.0) K/mm3 RBC 3.11 L (3.65-5.03) M/mm3 Hgb 9.0 L (10.1-14.3) gm/dl Hct 27.2 L D (30.3-42.9) % RDW 17.1 H (13.2-15.2) % Baso # (Auto) 0.2 H (0.0-0.1) K/mm3 Seg Neutrophils % 78.9 H (40.0-70.0) % Seg Neutrophils # 11.3 H (1.8-7.7) K/mm3 PT (12.2-14.9) Sec. INR (0.87-1.13) APTT (24.2-36.6) Sec. Sodium (137-145) mmol/L Chloride (98-107) mmol/L Carbon Dioxide (22-30) mmol/L Calcium (8.4-10.2) mg/dL Crossmatch Medications & Allergies - Medications Allergies/Adverse Reactions: Allergies No Known Allergies Allergy (Verified 12/13/21 17:26) Home Medications: Home Medications Medication Instructions Recorded Confirmed Last Taken Type Apixaban [Eliquis] 2.5 mg PO Q12HR #60 tab 09/01/21 12/14/21 12/13/21 Rx AtorvaSTATin [Lipitor] 40 mg PO DAILY 09/01/21 12/14/21 12/14/21 History Gabapentin 100 mg PO BID 09/01/21 12/14/21 12/13/21 History Pantoprazole [Protonix TAB] 40 mg PO QDAY #90 tablet 09/01/21 12/14/21 12/13/21 Rx carvediloL [Coreg] 25 mg PO BID 09/01/21 12/14/21 12/13/21 History traZODone [Desyrel] 100 mg PO QHS 09/01/21 12/14/21 12/13/21 History Venlafaxine [Effexor] 75 mg PO DAILY 11/02/21 12/14/21 12/13/21 History Aspirin EC [Halfprin EC] 81 mg PO QDAY #30 tablet 12/11/21 12/14/21 12/13/21 Rx Clopidogrel [Plavix] 75 mg PO QDAY #90 tablet 12/11/21 12/14/21 12/14/21 Rx Docusate Sodium [Colace CAP] 100 mg PO BID #60 capsule 12/11/21 12/14/21 12/13/21 Rx cilostazoL [Pletal] 50 mg PO BID #60 tab 12/11/21 12/14/21 12/13/21 Rx levoFLOXacin [Levaquin] 750 mg PO QDAY #7 tablet 12/11/21 12/14/21 12/13/21 Rx traMADoL [Ultram] 50 mg PO Q6HR PRN #20 tablet 12/11/21 12/14/21 12/13/21 Rx Active Medications: Generic Name Dose Route Start Last Admin Trade Name Shelia PRN Reason Stop Dose Admin Acetaminophen 650 mg 12/13/21 23:13 Acetaminophen 325 Mg Tab PO Q4H PRN Pain MILD(1-3)/Fever >100.5/GONZALEZ Albuterol 2.5 mg 12/13/21 23:13 Albuterol 2.5 Mg/3 Ml Nebu IH Q3HRT PRN Shortness Of Breath Atorvastatin Calcium 40 mg 12/14/21 10:00 12/15/21 09:27 Atorvastatin 40 Mg Tab PO 40 mg DAILY SRAVAN Administration Cilostazol 50 mg 12/14/21 10:00 12/15/21 13:43 Cilostazol 100 Mg Tab PO 50 mg BID SRAVAN Administration Clopidogrel Bisulfate 75 mg 12/14/21 10:00 12/15/21 09:26 Clopidogrel 75 Mg Tab PO 75 mg QDAY SRAVAN Administration Heparin Sodium (Porcine) 1,600 unit 12/14/21 13:30 Heparin 10,000 Units/10 Ml Vial 40 unit/kg (1600 unit) IV Q6H PRN Anti-Xa Assay < 0.1 units/ml Cefepime HCl 1 gm in 100 mls @ 200 mls/hr 12/14/21 13:00 12/15/21 13:43 Cefepime/Ns 1 Gm/100 Ml IV 200 mls/hr Q12H SRAVAN Administration Protocol Heparin Sodium/Sodium Chloride 25,000 unit in 500 mls @ 12 mls/hr 12/14/21 13:00 12/14/21 23:17 Heparin/ 0.45% Nacl-25,000 Unit/500 Ml IV 600 units/hr TITR SRAVAN 12 mls/hr Titration Protocol 600 UNITS/HR Vancomycin HCl 1 gm in 250 mls @ 166.667 mls/hr 12/15/21 06:00 12/15/21 05:03 Vancomycin/Ns 1 Gm/250 Ml IV 166.667 mls/hr Q24H SRAVAN Administration Lactated Ringer's 1,000 mls @ 125 mls/hr 12/14/21 16:00 12/15/21 09:34 Lactated Ringers IV 125 mls/hr DIRECT SRAVAN Administration Morphine Sulfate 2 mg 12/13/21 23:13 12/15/21 09:26 Morphine 2 Mg/1 Ml Inj IV 2 mg Q4H PRN Administration Pain, Moderate (4-6) Morphine Sulfate 4 mg 12/13/21 23:13 12/15/21 13:44 Morphine 4 Mg/1 Ml Inj IV 4 mg Q4H PRN Administration Pain , Severe (7-10) Naloxone HCl 0.1 mg 12/14/21 15:02 Naloxone 0.4 Mg/1 Ml Inj IV Q2MIN PRN Res Rate </= 8 or 02 SAT < 92% Ondansetron HCl 4 mg 12/14/21 15:02 12/15/21 09:26 Ondansetron 4 Mg/2 Ml Inj IV 4 mg Q8H PRN Administration Nausea And Vomiting Pantoprazole Sodium 40 mg 12/14/21 16:30 12/15/21 09:27 Pantoprazole 40 Mg Tab PO 40 mg BIDAC SRAVAN Administration Sodium Chloride 10 ml 12/13/21 23:13 12/14/21 21:32 Sodium Chloride 0.9% 10 Ml Flush Syringe IV 10 ml PRN PRN Administration LINE FLUSH
[2021-12-15] MEDS: APIXABAN 5 MG TAB PO SCH ×2 (15:24→21:53)
--- NOTE | 2021-12-15 17:20 | Consultation ---
History of Present Illness - Reason for Consult Consult date: 12/15/21 - History of Present Illness 56-year-old female past medical history PVD, status post bypass surgery presented to hospital complaining of bleeding from her left groin. Of note she had recently been admitted to the hospital due to infection of the graft which had since been excised. Bleeding occurred when the wound VAC is being changed. She otherwise denies any complaints. During her last admissions her cultures finalized with Klebsiella, E. coli, MRSA, Pseudomonas Afebrile since admission with a white count of 14.3. Review of Systems: Bold if positive, otherwise negative General: fevers, chills, rigors HEENT: visual disturbance, diplopia, eye pain Respiratory: cough, sputum, hemoptysis, shortness of breath Cardiovascular: chest pain, syncope Gastrointestinal: nausea, vomiting, diarrhea, abdominal pain Genitourinary: dysuria, hematuria, flank pain Musculoskeletal: neck pain, back pain, joint pain, edema Neurologic: headaches, seizures Hematologic: easy bruising or bleeding Endocrine: night sweats, acute weight loss Skin: rash, jaundice, redness Psychiatric: suicidal, homicidal ideation Past History Past Medical History: hypertension, other (PVD) Past Surgical History: Other (Femoral bypass Surgery) Social history: smoking Family history: hypertension Medications and Allergies Allergies Allergy/AdvReac Type Severity Reaction Status Date / Time No Known Allergies Allergy Verified 12/13/21 17:26 Home Medications Medication Instructions Recorded Confirmed Last Taken Type Apixaban [Eliquis] 2.5 mg PO Q12HR #60 tab 09/01/21 12/14/21 12/13/21 Rx AtorvaSTATin [Lipitor] 40 mg PO DAILY 09/01/21 12/14/21 12/14/21 History Gabapentin 100 mg PO BID 09/01/21 12/14/21 12/13/21 History Pantoprazole [Protonix TAB] 40 mg PO QDAY #90 tablet 09/01/21 12/14/21 12/13/21 Rx carvediloL [Coreg] 25 mg PO BID 09/01/21 12/14/21 12/13/21 History traZODone [Desyrel] 100 mg PO QHS 09/01/21 12/14/21 12/13/21 History Venlafaxine [Effexor] 75 mg PO DAILY 11/02/21 12/14/2122 History Aspirin EC [Halfprin EC] 81 mg PO QDAY #30 tablet 12/11/21 12/14/21 12/13/21 Rx Clopidogrel [Plavix] 75 mg PO QDAY #90 tablet 12/11/21 12/14/21 12/14/21 Rx Docusate Sodium [Colace CAP] 100 mg PO BID #60 capsule 12/11/21 12/14/21 12/13/21 Rx cilostazoL [Pletal] 50 mg PO BID #60 tab 12/11/21 12/14/21 12/13/21 Rx levoFLOXacin [Levaquin] 750 mg PO QDAY #7 tablet 12/11/21 12/14/21 12/13/21 Rx traMADoL [Ultram] 50 mg PO Q6HR PRN #20 tablet 12/11/21 12/14/21 12/13/21 Rx Active Meds: Active Medications Acetaminophen (Acetaminophen 325 Mg Tab) 650 mg PO Q4H PRN PRN Reason: Pain MILD(1-3)/Fever >100.5/GONZALEZ Albuterol (Albuterol 2.5 Mg/3 Ml Nebu) 2.5 mg IH Q3HRT PRN PRN Reason: Shortness Of Breath Apixaban (Apixaban 5 Mg Tab) 5 mg PO Q12HR SRAVAN; Protocol Last Admin: 12/15/21 15:24 Dose: 5 mg Atorvastatin Calcium (Atorvastatin 40 Mg Tab) 40 mg PO DAILY [facility] Last Admin: 12/15/21 09:27 Dose: 40 mg Cilostazol (Cilostazol 100 Mg Tab) 50 mg PO BID [facility] Last Admin: 12/15/21 13:43 Dose: 50 mg Clopidogrel Bisulfate (Clopidogrel 75 Mg Tab) 75 mg PO QDAY SRAVAN Last Admin: 12/15/21 09:26 Dose: 75 mg Cefepime HCl (Cefepime/Ns 1 Gm/100 Ml) 1 gm in 100 mls @ 200 mls/hr IV Q12H SRAVAN; Protocol Last Admin: 12/15/21 13:43 Dose: 200 mls/hr Vancomycin HCl (Vancomycin/Ns 1 Gm/250 Ml) 1 gm in 250 mls @ 166.667 mls/hr IV Q24H [facility] Last Admin: 12/15/21 05:03 Dose: 166.667 mls/hr Morphine Sulfate (Morphine 2 Mg/1 Ml Inj) 2 mg IV Q4H PRN PRN Reason: Pain, Moderate (4-6) Last Admin: 12/15/21 09:26 Dose: 2 mg Morphine Sulfate (Morphine 4 Mg/1 Ml Inj) 4 mg IV Q4H PRN PRN Reason: Pain , Severe (7-10) Last Admin: 12/15/21 13:44 Dose: 4 mg Naloxone HCl (Naloxone 0.4 Mg/1 Ml Inj) 0.1 mg IV Q2MIN PRN PRN Reason: Res Rate </= 8 or 02 SAT < 92% Ondansetron HCl (Ondansetron 4 Mg/2 Ml Inj) 4 mg IV Q8H PRN PRN Reason: Nausea And Vomiting Last Admin: 12/15/21 09:26 Dose: 4 mg Pantoprazole Sodium (Pantoprazole 40 Mg Tab) 40 mg PO BIDAC SRAVAN Last Admin: 12/15/21 09:27 Dose: 40 mg Sodium Chloride (Sodium Chloride 0.9% 10 Ml Flush Syringe) 10 ml IV PRN PRN PRN Reason: LINE FLUSH Last Admin: 12/14/21 21:32 Dose: 10 ml Physical Examination - Physical Exam Narrative exam: Physical Exam: Constitutional: Alert, cooperative. No acute distress Head, Ears, Nose: Normocephalic, atraumatic. External ears, nose normal Eyes: Conjunctivae/corneas clear. No icterus. No ptosis. Neck: Supple, no meningeal signs Oral: dentition fair, no thrush Cardiovascular: S1, S2 normal. Respiratory: Good air entry, clear to auscultation bilaterally GI: Soft, non-tender; bowel sounds normal. No peritoneal signs. Musculoskeletal: No pedal edema, no cyanosis. Skin: No rash or abscess Hem/Lymphatic: No palpable cervical or supraclavicular nodes. No lymphangitis Psych: Mood ok. Affect normal Neurological: Awake, alert, oriented. No gross abnormality - Constitutional Vitals: Vital Signs Temp Pulse Resp BP Pulse Ox 98.1 F 84 8 L 137/64 98 12/15/21 16:00 12/15/21 17:00 12/15/21 17:00 12/15/21 17:00 12/15/21 17:00 Temperature -Last 24 Hours Temperature 98.1 F Temperature 97.4 F Temperature 97.6 F Temperature 97.4 F Temperature 97.4 F Temperature 97.4 F Results - Labs CBC & Chem 7: 12/15/21 09:53 12/15/21 04:14 Labs: Abnormal lab results 12/13/21 12/15/21 12/15/21 Range/Units 20:59 04:14 09:53 WBC 14.3 H (4.5-11.0) K/mm3 RBC 3.11 L (3.65-5.03) M/mm3 Hgb 9.0 L (10.1-14.3) gm/dl Hct 27.2 L D (30.3-42.9) % RDW 17.1 H (13.2-15.2) % Baso # (Auto) 0.2 H (0.0-0.1) K/mm3 Seg Neutrophils % 78.9 H (40.0-70.0) % Seg Neutrophils # 11.3 H (1.8-7.7) K/mm3 Sodium 136 L (137-145) mmol/L Chloride 107.3 H (98-107) mmol/L Carbon Dioxide 18 L (22-30) mmol/L Calcium 6.8 L (8.4-10.2) mg/dL Crossmatch See Detail Assessment and Plan Cultures: Wound culture from previous surgery: Klebsiella, E. 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 Infected graft was removed, having increased bleeding from the site. Ongoing leukocytosis. Given this, recommend discharge with IV antibiotics. Recs: -Recommend vancomycin and cefepime -Case management consulted for vancomycin 1 g every 24 hours, cefepime 2 g every 8 hours until 01/05/2022 -Okay for PICC line prior to discharge Thank you for the consult, we will continue to follow. MD [facility] O: [phone] F: [phone]
[2021-12-15 22:39] LABS: Hematocrit 20.1 % (30.3-42.9); Hemoglobin 6.9 gm/dl (10.1-14.3)
[2021-12-16] MEDS ORDERED: SODIUM CHLORIDE 0.9% 500 ML 500 ML IV ONE (00:36)
[2021-12-16] MEDS: CEFEPIME/NS 1 GM/100 ML 1 GM/100 ML BAG IV SCH ×2 (00:44→13:01)
[2021-12-16] MEDS: MORPHINE 4 MG/1 ML INJ IV PRN ×4 (02:51→23:53)
[2021-12-16] MEDS: VANCOMYCIN/NS 1 GM/250 ML 1 GM/250 ML BAG IV SCH (06:46)
[2021-12-16 09:19] LABS: Hematocrit 27.4 % (30.3-42.9); Hemoglobin 9.5 gm/dl (10.1-14.3); Mean Corpuscular HGB Conc 35 % (30-34); Mean Corpuscular Volume 88 fl (79-97); Platelet Count 341 K/mm3 (140-440); Red Blood Count 3.11 M/mm3 (3.65-5.03)
[2021-12-16 09:36] LABS: Blood Urea Nitrogen 9 mg/dL (7-17); Calcium 7.4 mg/dL (8.4-10.2); Hemolysis Index 9
[2021-12-16 09:37] LABS: BUN/Creatinine Ratio 13
[2021-12-16] MEDS: CLOPIDOGREL 75 MG TAB PO SCH (09:45)
[2021-12-16] MEDS: APIXABAN 5 MG TAB PO SCH (09:45)
[2021-12-16] MEDS: CILOSTAZOL 100 MG TAB PO SCH ×2 (09:45→22:24)
[2021-12-16] MEDS: PANTOPRAZOLE 40 MG TAB PO SCH ×2 (09:48→17:30)
--- NOTE | 2021-12-16 11:29 | Progress Note ---
<MARTÍNEZGALE MckenzieSebas - Last Filed: 12/16/21 12:01> Assessment and Plan Assessment and plan: This is a 56-year-old female with PVD, HTN, HLD, anemia, neuropathy admitted with left femoral artery injury resulting in hemorrhage Neuro: h/o CVA -Reorientation as needed -Maintain sleep-wake cycle -As needed analgesia Cardiac: h/o HTN, HLD, CAD -Hold home antihypertensive regimen as patient is currently borderline hypotensive -Blood pressure monitor per protocol -Lipitor Respiratory: h/o nicotine abuse -Currently on room air -Supplemental oxygen as needed -SPO2 monitoring -Pulmonary hygiene GI: Moderate Protein calorie malnutrition -24 hours + 1670 mL -PPI -Cardiac diet with supplements -BR: colace : NAD -Monitor intake and output -Renally dose medications -Avoid nephrotoxic medications -Trend BMP ID: ? 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 -S/p 6 units PRBC, 1 FFP -Vascular surgery and CCM consulted, appreciate recommendations -S/p exploration of left groin with open thrombectomy of left SFA, repair of left common femoral artery, coverage of left femoral artery with muscle flap and wound VAC placement -Continue Pletal, plavix -s/p Heparin gtt -Serial h/h -Trend CBC -h/h 6.9/20.1 -1 unit PRBC -Transfuse hemoglobin less than 7 -Continue Eliquis per vascular -SCDs to BLE while in bed Critical Care Billing: The high probability of a clinically significant, sudden or life threatening deterioration of the [vascular] system(s) required my full and direct attention, intervention and personal management. The aggregate critical care time was [60] minutes. This time is in addition to time spent performing reported procedures but includes the following: [x] Data Review and interpretation [x] Patient assessment and monitoring of vital signs [x] Documentation [x] Medication orders and management Disposition Plan: icu Total Time Spent with Patient (Minutes): 60 History Interval history: This is a 56-year-old female with PVD s/p femoral-popliteal bypass surgery c/b compartment syndrome s/p fasciotomy, occlusion infection, HTN, CVA, HLD, anemia, neuropathy presented to the emergency department on 12/13 with hemorrhage from her wound VAC site after her home health care nurse changed her wound VAC per patient. Work-up in the emergency department revealed hemoglobin of 6.6 and she was transfused 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 Vascular surgery was consulted and patient was taken to cytogenetics laboratory manager for repair of femoral artery injury. Patient was admitted to the hospitalist service with consult to [facility]. Hospital course to date 12/15: Currently in CCU, decreased urine output reported overnight. We will continue lactated Ringer's. Continue serial H&H. 12/16: patient noted to be anemic and given prbc. repeat post transfusion h/h is 9.5/27.4. Will need skilled nursing abx therefore PICC ordered. Hospitalist Physical - Constitutional Vitals: Temp Pulse Resp BP Pulse Ox 97.6 F 81 16 149/72 98 12/16/21 08:00 12/16/21 10:00 12/16/21 10:00 12/16/21 10:00 12/16/21 10:00 General appearance: Present: no acute distress, other (Eating during the exam) - EENT Eyes: Present: PERRL, EOM intact ENT: hearing intact, edentulous - Neck Neck: Present: normal ROM - Respiratory Respiratory effort: normal Respiratory: bilateral: diminished - Cardiovascular Rhythm: regular Heart Sounds: Present: S1 & S2. Absent: systolic murmur, diastolic murmur - Extremities Extremities: no ischemia, normal color Extremity abnormal: edema, pulses diminished Peripheral Pulses: within normal limits - Abdominal General gastrointestinal: soft, non-tender, non-distended, normal bowel sounds - Integumentary Integumentary: Present: warm, dry - Psychiatric Psychiatric: appropriate mood/affect, cooperative - Neurologic Neurologic: CNII-XII intact, moves all extremities, other (decreased senation to BLE) - Allied Health Allied health notes reviewed: nursing Results - Labs CBC & Chem 7: 12/16/21 08:58 12/16/21 08:58 Labs: Laboratory Last Values WBC 10.7 K/mm3 (4.5-11.0) 12/16/21 08:58 RBC 3.11 M/mm3 (3.65-5.03) L 12/16/21 08:58 Hgb 9.5 gm/dl (10.1-14.3) L 12/16/21 08:58 Hct 27.4 % (30.3-42.9) L D 12/16/21 08:58 MCV 88 fl (79-97) 12/16/21 08:58 MCH 30 pg (28-32) 12/16/21 08:58 MCHC 35 % (30-34) H 12/16/21 08:58 RDW 16.0 % (13.2-15.2) H 12/16/21 08:58 Plt Count 341 K/mm3 (140-440) 12/16/21 08:58 Lymph % (Auto) 13.4 % (13.4-35.0) 12/15/21 09:53 [place] % (Auto) 5.9 % (0.0-7.3) 12/15/21 09:53 Eos % (Auto) 0.6 % (0.0-4.3) 12/15/21 09:53 Baso % (Auto) 1.2 % (0.0-1.8) 12/15/21 09:53 Lymph # (Auto) 1.9 K/mm3 (1.2-5.4) 12/15/21 09:53 [place] # (Auto) 0.8 K/mm3 (0.0-0.8) 12/15/21 09:53 Eos # (Auto) 0.1 K/mm3 (0.0-0.4) 12/15/21 09:53 Baso # (Auto) 0.2 K/mm3 (0.0-0.1) H 12/15/21 09:53 Seg Neutrophils % 78.9 % (40.0-70.0) H 12/15/21 09:53 Seg Neutrophils # 11.3 K/mm3 (1.8-7.7) H 12/15/21 09:53 PT 18.0 Sec. (12.2-14.9) H 12/14/21 13:40 INR 1.32 (0.87-1.13) H 12/14/21 13:40 APTT 20.4 Sec. (24.2-36.6) L 12/14/21 13:40 Heparin Anti-Xa Level 0.66 U.I./ml (0.3-0.7) 12/14/21 22:43 Sodium 139 mmol/L (137-145) 12/16/21 08:58 Potassium 4.5 mmol/L (3.6-5.0) 12/16/21 08:58 Chloride 109.1 mmol/L (98-107) H 12/16/21 08:58 Carbon Dioxide 24 mmol/L (22-30) 12/16/21 08:58 Anion Gap 10 mmol/L 12/16/21 08:58 BUN 9 mg/dL (7-17) 12/16/21 08:58 Creatinine 0.7 mg/dL (0.6-1.2) 12/16/21 08:58 Estimated GFR > 60 ml/min 12/16/21 08:58 BUN/Creatinine Ratio 13 % 12/16/21 08:58 Glucose 96 mg/dL (65-100) 12/16/21 08:58 Calcium 7.4 mg/dL (8.4-10.2) L 12/16/21 08:58 Total Bilirubin 0.30 mg/dL (0.1-1.2) 12/13/21 18:25 AST 13 units/L (5-40) 12/13/21 18:25 ALT < 5 units/L (7-56) L 12/13/21 18:25 Alkaline Phosphatase 118 units/L (35-129) 12/13/21 18:25 Total Protein 4.6 g/dL (6.3-8.2) L 12/13/21 18:25 Albumin 2.1 g/dL (3.9-5) L 12/13/21 18:25 Albumin/Globulin Ratio 0.8 % 12/13/21 18:25 Blood Type O POSITIVE 12/13/21 20:59 Antibody Screen Negative 12/13/21 20:59 Crossmatch See Detail 12/13/21 20:59 Victor/IV: Voiding Method Indwelling Catheter Active Medications - Current Medications Current Medications: Generic Name Dose Route Start Last Admin Trade Name Freq PRN Reason Stop Dose Admin Acetaminophen 650 mg 12/13/21 23:13 Acetaminophen 325 Mg Tab PO Q4H PRN Pain MILD(1-3)/Fever >100.5/GONZALEZ Albuterol 2.5 mg 12/13/21 23:13 Albuterol 2.5 Mg/3 Ml Nebu IH Q3HRT PRN Shortness Of Breath Apixaban 2.5 mg 12/16/21 10:31 Apixaban 5 Mg Tab PO Q12HR SRAVAN Protocol Atorvastatin Calcium 40 mg 12/14/21 10:00 12/16/21 09:45 Atorvastatin 40 Mg Tab PO 40 mg DAILY SRAVAN Administration Cilostazol 50 mg 12/14/21 10:00 12/16/21 09:45 Cilostazol 100 Mg Tab PO 50 mg BID SRAVAN Administration Clopidogrel Bisulfate 75 mg 12/14/21 10:00 12/16/21 09:45 Clopidogrel 75 Mg Tab PO 75 mg QDAY SRAVAN Administration Cefepime HCl 1 gm in 100 mls @ 200 mls/hr 12/14/21 13:00 12/16/21 00:44 Cefepime/Ns 1 Gm/100 Ml IV 200 mls/hr Q12H SRAVAN Administration Protocol Vancomycin HCl 1 gm in 250 mls @ 166.667 mls/hr 12/15/21 06:00 12/16/21 06:46 Vancomycin/Ns 1 Gm/250 Ml IV 166.667 mls/hr Q24H SRAVAN Administration Morphine Sulfate 2 mg 12/13/21 23:13 12/15/21 20:23 Morphine 2 Mg/1 Ml Inj IV 2 mg Q4H PRN Administration Pain, Moderate (4-6) Morphine Sulfate 4 mg 12/13/21 23:13 12/16/21 09:55 Morphine 4 Mg/1 Ml Inj IV 4 mg Q4H PRN Administration Pain , Severe (7-10) Naloxone HCl 0.1 mg 12/14/21 15:02 Naloxone 0.4 Mg/1 Ml Inj IV Q2MIN PRN Res Rate </= 8 or 02 SAT < 92% Ondansetron HCl 4 mg 12/14/21 15:02 12/15/21 09:26 Ondansetron 4 Mg/2 Ml Inj IV 4 mg Q8H PRN Administration Nausea And Vomiting Pantoprazole Sodium 40 mg 12/14/21 16:30 12/16/21 09:48 Pantoprazole 40 Mg Tab PO 40 mg BIDAC SRAVAN Administration Sodium Chloride 10 ml 12/13/21 23:13 12/16/21 02:53 Sodium Chloride 0.9% 10 Ml Flush Syringe IV 10 ml PRN PRN Administration LINE FLUSH Nutrition/Malnutrition Assess - Dietary Evaluation Nutrition/Malnutrition Findings: Nutrition Notes Start: 12/14/21 12:00 Freq: Status: Active Protocol: Document 12/15/21 09:48 MERARI (Rec: 12/15/21 10:10 MERARI [email or web address]) Nutrition Notes Initial or Follow up Brief Note Current Diagnosis Hypertension Other Pertinent Diagnosis PVD s/p L-FP Bypass, L-FP Bypass Occlusion, L-Groin Infection, L-SAMPLE TESTER GRINDER Injury Current Diet Cardiac Diet (since 12/13), D Suppl (since 12/15). Height 5 ft 2 in Weight 40.823 kg [place] Body Weight (kg) 50.00 BMI 16.5 Weight change and time frame No body weight change reported in 1 day. Weight Status Underweight Subjective/Other Information RD consult for dietary supplementation assessment. No reports available on Pt's PO intake of meals at the time , will assess at F/U. prescribed dietary supplements without RD consult , I will continue the prescription to compensate for possible poor or insufficient PO intake of meals, and to support wound healing processes, along with compensation for blood loss during LOS. Pt is on Room Air, O2 saturation @ 100%, according to Physical Assessment History notes. Procedure on 12/14: Repair of L-SAMPLE TESTER GRINDER w/bovine pericardial patch, woundVac placement, well tolerated, according to Operative Report notes. Percent of energy/protein needs met: Prescribed Cardiac Diet provides for energy/protein needs (2,230 Kcal/85 g) during LOS; additionally, Dietary Supplements will compensate for possible poor or insufficient PO intake of meals with 1,050 Kcal and 60 g of protein. #2 Nutrition Diagnosis Increased nutrient needs ( specify in comment below) Comments: Protein to support wound healing and compensate for blood loss. Etiology L-Groin Infection, L-SAMPLE TESTER GRINDER Injury, As Evidenced by Signs and Symptoms Procedure on 12/14: Repair of L-SAMPLE TESTER GRINDER w/bovine pericardial patch, woundVac placement, well tolerated, according to Operative Report notes. #1 Nutrition Diagnosis Underweight Diagnosis Progress(for reassessment Continues documentation) Is patient on ventilator? No Is Patient Ambulatory and/or Out of Bed No REE-([place]-confined to bed) 1134.852 Kcal/Kg value to use for calculation 30 Approximate Energy Requirements Using 1225 kcal/Kg Calculation Used for Recommendations Kcal/kg Additional Notes Protein: 1.5-2 g/Kg ABW; 62-84 g/day. Fluids: 1 ml/Kcal, or as per MD. Nutrition Intervention Change Diet Order: Continue Cardiac Diet. Add Supplement/Snack (indicate name/kcal Start 8 fl oz Ensure Enlive; /protein ) TID. Provides kCal: 1,050 Provides Protein (gm) 60 Goal #1 Compensate, through dietary supplementation, for possible poor or insufficient PO intake of meals during LOS. Goal #2 Support, through dietary supplementation, wound healing processes during LOS. Goal #3 Adjust the dietary intervention to better serve Pt's needs and clinical conditions during LOS. Follow-Up By: 12/22/21 Additional Comments Continue monitoring food tolerance, %PO intake of meals , dietary supplements, and BM. <ARNOLD WELCH - Last Filed: 12/17/21 07:16> Assessment and Plan Assessment and plan: I saw and evaluated the patient. I agree with the findings and the plan of care as documented in the Nurse Practitioner's~note, with the following corrections and additions. Hospitalist Physical - Constitutional Vitals: Temp Pulse Resp BP Pulse Ox 97.9 F 71 17 160/71 95 12/17/21 04:00 12/17/21 06:00 12/17/21 06:00 12/17/21 06:00 12/17/21 06:00 Results - Labs CBC & Chem 7: 12/17/21 05:00 12/17/21 05:00 Labs: Laboratory Last Values WBC 8.2 K/mm3 (4.5-11.0) 12/17/21 05:00 RBC 2.87 M/mm3 (3.65-5.03) L 12/17/21 05:00 Hgb 8.7 gm/dl (10.1-14.3) L 12/17/21 05:00 Hct 25.3 % (30.3-42.9) L 12/17/21 05:00 MCV 88 fl (79-97) 12/17/21 05:00 MCH 30 pg (28-32) 12/17/21 05:00 MCHC 34 % (30-34) 12/17/21 05:00 RDW 15.8 % (13.2-15.2) H 12/17/21 05:00 Plt Count 346 K/mm3 (140-440) 12/17/21 05:00 Lymph % (Auto) 15.4 % (13.4-35.0) 12/17/21 05:00 [place] % (Auto) 8.9 % (0.0-7.3) H 12/17/21 05:00 Eos % (Auto) 1.7 % (0.0-4.3) 12/17/21 05:00 Baso % (Auto) 1.1 % (0.0-1.8) 12/17/21 05:00 Lymph # (Auto) 1.3 K/mm3 (1.2-5.4) 12/17/21 05:00 [place] # (Auto) 0.7 K/mm3 (0.0-0.8) 12/17/21 05:00 Eos # (Auto) 0.1 K/mm3 (0.0-0.4) 12/17/21 05:00 Baso # (Auto) 0.1 K/mm3 (0.0-0.1) 12/17/21 05:00 Seg Neutrophils % 72.9 % (40.0-70.0) H 12/17/21 05:00 Seg Neutrophils # 6.0 K/mm3 (1.8-7.7) 12/17/21 05:00 PT 18.0 Sec. (12.2-14.9) H 12/14/21 13:40 INR 1.32 (0.87-1.13) H 12/14/21 13:40 APTT 20.4 Sec. (24.2-36.6) L 12/14/21 13:40 Heparin Anti-Xa Level 0.66 U.I./ml (0.3-0.7) 12/14/21 22:43 Sodium 139 mmol/L (137-145) 12/17/21 05:00 Potassium 3.1 mmol/L (3.6-5.0) L 12/17/21 05:00 Chloride 107.6 mmol/L (98-107) H 12/17/21 05:00 Carbon Dioxide 24 mmol/L (22-30) 12/17/21 05:00 Anion Gap 11 mmol/L 12/17/21 05:00 BUN 8 mg/dL (7-17) 12/17/21 05:00 Creatinine 0.6 mg/dL (0.6-1.2) 12/17/21 05:00 Estimated GFR > 60 ml/min 12/17/21 05:00 BUN/Creatinine Ratio 13 % 12/17/21 05:00 Glucose 96 mg/dL (65-100) 12/17/21 05:00 Calcium 7.7 mg/dL (8.4-10.2) L 12/17/21 05:00 Total Bilirubin 0.30 mg/dL (0.1-1.2) 12/13/21 18:25 AST 13 units/L (5-40) 12/13/21 18:25 ALT < 5 units/L (7-56) L 12/13/21 18:25 Alkaline Phosphatase 118 units/L (35-129) 12/13/21 18:25 Total Protein 4.6 g/dL (6.3-8.2) L 12/13/21 18:25 Albumin 2.1 g/dL (3.9-5) L 12/13/21 18:25 Albumin/Globulin Ratio 0.8 % 12/13/21 18:25 Blood Type O POSITIVE 12/13/21 20:59 Antibody Screen Negative 12/13/21 20:59 Crossmatch See Detail 12/13/21 20:59 Victor/IV: Voiding Method Indwelling Catheter Active Medications - Current Medications Current Medications: Generic Name Dose Route Start Last Admin Trade Name Freq PRN Reason Stop Dose Admin Acetaminophen 650 mg 12/13/21 23:13 Acetaminophen 325 Mg Tab PO Q4H PRN Pain MILD(1-3)/Fever >100.5/GONZALEZ Albuterol 2.5 mg 12/13/21 23:13 Albuterol 2.5 Mg/3 Ml Nebu IH Q3HRT PRN Shortness Of Breath Apixaban 2.5 mg 12/16/21 22:00 12/16/21 22:25 Apixaban 2.5 Mg Tab PO 2.5 mg Q12HR SRAVAN Administration Protocol Atorvastatin Calcium 40 mg 12/14/21 10:00 12/16/21 09:45 Atorvastatin 40 Mg Tab PO 40 mg DAILY SRAVAN Administration Cilostazol 50 mg 12/14/21 10:00 12/16/21 22:24 Cilostazol 100 Mg Tab PO 50 mg BID SRAVAN Administration Clopidogrel Bisulfate 75 mg 12/14/21 10:00 12/16/21 09:45 Clopidogrel 75 Mg Tab PO 75 mg QDAY SRAVAN Administration Cefepime HCl 1 gm in 100 mls @ 200 mls/hr 12/14/21 13:00 12/17/21 01:00 Cefepime/Ns 1 Gm/100 Ml IV Infused Q12H SRAVAN Infusion Protocol Vancomycin HCl 1 gm in 250 mls @ 166.667 mls/hr 12/15/21 06:00 12/17/21 06:39 Vancomycin/Ns 1 Gm/250 Ml IV Infused Q24H SRAVAN Infusion Morphine Sulfate 2 mg 12/13/21 23:13 12/17/21 04:18 Morphine 2 Mg/1 Ml Inj IV 2 mg Q4H PRN Administration Pain, Moderate (4-6) Morphine Sulfate 4 mg 12/13/21 23:13 12/16/21 23:53 Morphine 4 Mg/1 Ml Inj IV 4 mg Q4H PRN Administration Pain , Severe (7-10) Naloxone HCl 0.1 mg 12/14/21 15:02 Naloxone 0.4 Mg/1 Ml Inj IV Q2MIN PRN Res Rate </= 8 or 02 SAT < 92% Ondansetron HCl 4 mg 12/14/21 15:02 12/15/21 09:26 Ondansetron 4 Mg/2 Ml Inj IV 4 mg Q8H PRN Administration Nausea And Vomiting Pantoprazole Sodium 40 mg 12/14/21 16:30 12/16/21 17:30 Pantoprazole 40 Mg Tab PO 40 mg BIDAC SRAVAN Administration Potassium Chloride 40 meq 12/17/21 10:00 Potassium Chloride Er 20 Meq Tab PO 12/17/21 14:01 Q4HR SRAVAN Sodium Chloride 10 ml 12/13/21 23:13 12/16/21 02:53 Sodium Chloride 0.9% 10 Ml Flush Syringe IV 10 ml PRN PRN Administration LINE FLUSH Nutrition/Malnutrition Assess - Dietary Evaluation Nutrition/Malnutrition Findings: Nutrition Notes Start: 12/14/21 12:00 Freq: Status: Active Protocol: Document 12/15/21 09:48 MERARI (Rec: 12/15/21 10:10 MERARI [id number]) Nutrition Notes Initial or Follow up Brief Note Current Diagnosis Hypertension Other Pertinent Diagnosis PVD s/p L-FP Bypass, L-FP Bypass Occlusion, L-Groin Infection, L-SAMPLE TESTER GRINDER Injury Current Diet Cardiac Diet (since 12/13), D Suppl (since 12/15). Height 5 ft 2 in Weight 40.823 kg [place] Body Weight (kg) 50.00 BMI 16.5 Weight change and time frame No body weight change reported in 1 day. Weight Status Underweight Subjective/Other Information RD consult for dietary supplementation assessment. No reports available on Pt's PO intake of meals at the time , will assess at F/U. prescribed dietary supplements without RD consult , I will continue the prescription to compensate for possible poor or insufficient PO intake of meals, and to support wound healing processes, along with compensation for blood loss during LOS. Pt is on Room Air, O2 saturation @ 100%, according to Physical Assessment History notes. Procedure on 12/14: Repair of L-SAMPLE TESTER GRINDER w/bovine pericardial patch, woundVac placement, well tolerated, according to Operative Report notes. Percent of energy/protein needs met: Prescribed Cardiac Diet provides for energy/protein needs (2,230 Kcal/85 g) during LOS; additionally, Dietary Supplements will compensate for possible poor or insufficient PO intake of meals with 1,050 Kcal and 60 g of protein. #2 Nutrition Diagnosis Increased nutrient needs ( specify in comment below) Comments: Protein to support wound healing and compensate for blood loss. Etiology L-Groin Infection, L-SAMPLE TESTER GRINDER Injury, As Evidenced by Signs and Symptoms Procedure on 12/14: Repair of L-SAMPLE TESTER GRINDER w/bovine pericardial patch, woundVac placement, well tolerated, according to Operative Report notes. #1 Nutrition Diagnosis Underweight Diagnosis Progress(for reassessment Continues documentation) Is patient on ventilator? No Is Patient Ambulatory and/or Out of Bed No REE-([place]-confined to bed) 1134.852 Kcal/Kg value to use for calculation 30 Approximate Energy Requirements Using 1225 kcal/Kg Calculation Used for Recommendations Kcal/kg Additional Notes Protein: 1.5-2 g/Kg ABW; 62-84 g/day. Fluids: 1 ml/Kcal, or as per MD. Nutrition Intervention Change Diet Order: Continue Cardiac Diet. Add Supplement/Snack (indicate name/kcal Start 8 fl oz Ensure Enlive; /protein ) TID. Provides kCal: 1,050 Provides Protein (gm) 60 Goal #1 Compensate, through dietary supplementation, for possible poor or insufficient PO intake of meals during LOS. Goal #2 Support, through dietary supplementation, wound healing processes during LOS. Goal #3 Adjust the dietary intervention to better serve Pt's needs and clinical conditions during LOS. Follow-Up By: 12/22/21 Additional Comments Continue monitoring food tolerance, %PO intake of meals , dietary supplements, and BM.
[2021-12-16 15:57] LABS: Hematocrit 30.1 % (30.3-42.9); Hemoglobin 10.2 gm/dl (10.1-14.3)
--- NOTE | 2021-12-16 17:36 | Progress Note ---
Assessment and Plan POD#2 The patient is doing well without any acute complaints. Dressing changes on left thigh and calf wound daily. Plan to place the VAC on the wounds when the groin wound VAC is taken down in 1 week for reassessment. Increase activity with physical therapy. Again reiterated needs for increasing nutritional intake. The patient has lost a lot of weight. The patient is actively attempting to increase her nutritional intake which I have encouraged her to increase her protein intake with Ensure shakes in addition to her meals. Consulted dietary Patient agrees with plan for acute rehab upon discharge. Needed 1 unit packed red blood cell transfusion. Change Eliquis from 5 mg p.o. twice daily to 2.5 mg p.o. twice daily. Subjective Date of service: 12/16/21 Interval history: Doing well. Has some left groin pain but feels good. Has an appetite. Recommended continuing to eat and continuing to use Ensure shakes. Put heel protector boots on patient. 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 Limited sensation in forefoot. Has sensation in midfoot and hindfoot. No toe movement. Limited ankle movement. Bilateral foot drop again noted. Dopplerable pulses in PT and DP bilaterally. Wound VAC on left groin draining red serous fluid. Changing bandages on left thigh and calf wound daily. Will change to wound VAC this upcoming week. Objective - Constitutional Vitals: Vital Signs - 12hr 12/16/21 12/16/21 12/16/21 06:00 07:00 08:00 Temperature 97.6 F Pulse Rate 76 75 76 Respiratory 10 L 10 L 8 L Rate Respiratory 12 Rate [Left Leg] Blood Pressure 137/62 133/63 164/65 O2 Sat by Pulse 97 98 97 Oximetry 12/16/21 12/16/21 12/16/21 09:00 10:00 11:00 Temperature Pulse Rate 87 81 76 Respiratory 15 16 15 Rate Respiratory Rate [Left Leg] Blood Pressure 153/72 149/72 130/66 O2 Sat by Pulse 99 98 99 Oximetry 12/16/21 12/16/21 12/16/21 12:00 12:01 12:31 Temperature 98.2 F Pulse Rate 74 81 83 Respiratory 20 14 11 L Rate Respiratory Rate [Left Leg] Blood Pressure 130/66 117/66 O2 Sat by Pulse 100 92 100 Oximetry 12/16/21 12/16/21 13:21 14:00 Temperature Pulse Rate 80 90 Respiratory 10 L 11 L Rate Respiratory Rate [Left Leg] Blood Pressure 148/67 O2 Sat by Pulse 99 98 Oximetry General appearance: Present: no acute distress - EENT Eyes: EOM intact ENT: hearing intact - Respiratory Respiratory effort: normal Extremities: normal temperature, normal color, abnormal (see subjective) - Gastrointestinal General gastrointestinal: Present: soft, non-tender - Psychiatric Psychiatric: appropriate mood/affect, cooperative - Labs CBC & Chem 7: 12/16/21 15:45 12/16/21 08:58 Labs: Abnormal lab results 12/13/21 12/15/21 12/16/21 Range/Units 20:59 22:23 08:58 RBC 3.11 L (3.65-5.03) M/mm3 Hgb 6.9 L 9.5 L (10.1-14.3) gm/dl Hct 20.1 L D 27.4 L D (30.3-42.9) % MCHC 35 H (30-34) % RDW 16.0 H (13.2-15.2) % Chloride (98-107) mmol/L Calcium (8.4-10.2) mg/dL Crossmatch See Detail 12/16/21 12/16/21 Range/Units 08:58 15:45 RBC (3.65-5.03) M/mm3 Hgb (10.1-14.3) gm/dl Hct 30.1 L (30.3-42.9) % MCHC (30-34) % RDW (13.2-15.2) % Chloride 109.1 H (98-107) mmol/L Calcium 7.4 L (8.4-10.2) mg/dL Crossmatch Medications & Allergies - Medications Allergies/Adverse Reactions: Allergies No Known Allergies Allergy (Verified 12/13/21 17:26) Home Medications: Home Medications Medication Instructions Recorded Confirmed Last Taken Type Apixaban [Eliquis] 2.5 mg PO Q12HR #60 tab 09/01/21 12/14/21 12/13/21 Rx AtorvaSTATin [Lipitor] 40 mg PO DAILY 09/01/21 12/14/21 12/14/21 History Gabapentin 100 mg PO BID 09/01/21 12/14/21 12/13/21 History Pantoprazole [Protonix TAB] 40 mg PO QDAY #90 tablet 09/01/21 12/14/21 12/13/21 Rx carvediloL [Coreg] 25 mg PO BID 09/01/21 12/14/21 12/13/21 History traZODone [Desyrel] 100 mg PO QHS 09/01/21 12/14/21 12/13/21 History Venlafaxine [Effexor] 75 mg PO DAILY 11/02/21 12/14/21 12/13/21 History Aspirin EC [Halfprin EC] 81 mg PO QDAY #30 tablet 12/11/21 12/14/21 12/13/21 Rx Clopidogrel [Plavix] 75 mg PO QDAY #90 tablet 12/11/21 12/14/21 12/14/21 Rx Docusate Sodium [Colace CAP] 100 mg PO BID #60 capsule 12/11/21 12/14/21 12/13/21 Rx cilostazoL [Pletal] 50 mg PO BID #60 tab 12/11/21 12/14/21 12/13/21 Rx levoFLOXacin [Levaquin] 750 mg PO QDAY #7 tablet 12/11/21 12/14/21 12/13/21 Rx traMADoL [Ultram] 50 mg PO Q6HR PRN #20 tablet 12/11/21 12/14/21 12/13/21 Rx Active Medications: Generic Name Dose Route Start Last Admin Trade Name Freq PRN Reason Stop Dose Admin Acetaminophen 650 mg 12/13/21 23:13 Acetaminophen 325 Mg Tab PO Q4H PRN Pain MILD(1-3)/Fever >100.5/[id number] Albuterol 2.5 mg 12/13/21 23:13 Albuterol 2.5 Mg/3 Ml Nebu IH Q3HRT PRN Shortness Of Breath Apixaban 2.5 mg 12/16/21 22:00 Apixaban 2.5 Mg Tab PO Q12HR SRAVAN Protocol Atorvastatin Calcium 40 mg 12/14/21 10:00 12/16/21 09:45 Atorvastatin 40 Mg Tab PO 40 mg DAILY SRAVAN Administration Cilostazol 50 mg 12/14/21 10:00 12/16/21 09:45 Cilostazol 100 Mg Tab PO 50 mg BID SRAVAN Administration Clopidogrel Bisulfate 75 mg 12/14/21 10:00 12/16/21 09:45 Clopidogrel 75 Mg Tab PO 75 mg QDAY SRAVAN Administration Cefepime HCl 1 gm in 100 mls @ 200 mls/hr 12/14/21 13:00 12/16/21 13:01 Cefepime/Ns 1 Gm/100 Ml IV 200 mls/hr Q12H SRAVAN Administration Protocol Vancomycin HCl 1 gm in 250 mls @ 166.667 mls/hr 12/15/21 06:00 12/16/21 06:46 Vancomycin/Ns 1 Gm/250 Ml IV 166.667 mls/hr Q24H SRAVAN Administration Morphine Sulfate 2 mg 12/13/21 23:13 12/15/21 20:23 Morphine 2 Mg/1 Ml Inj IV 2 mg Q4H PRN Administration Pain, Moderate (4-6) Morphine Sulfate 4 mg 12/13/21 23:13 12/16/21 14:28 Morphine 4 Mg/1 Ml Inj IV 4 mg Q4H PRN Administration Pain , Severe (7-10) Naloxone HCl 0.1 mg 12/14/21 15:02 Naloxone 0.4 Mg/1 Ml Inj IV Q2MIN PRN Res Rate </= 8 or 02 SAT < 92% Ondansetron HCl 4 mg 12/14/21 15:02 12/15/21 09:26 Ondansetron 4 Mg/2 Ml Inj IV 4 mg Q8H PRN Administration Nausea And Vomiting Pantoprazole Sodium 40 mg 12/14/21 16:30 12/16/21 17:30 Pantoprazole 40 Mg Tab PO 40 mg BIDAC SRAVAN Administration Sodium Chloride 10 ml 12/13/21 23:13 12/16/21 02:53 Sodium Chloride 0.9% 10 Ml Flush Syringe IV 10 ml PRN PRN Administration LINE FLUSH
[2021-12-16] MEDS: MORPHINE 2 MG/1 ML INJ IV PRN (19:31)
[2021-12-16] MEDS: APIXABAN 2.5 MG TAB PO SCH (22:25)
[2021-12-17 00:15] LABS: Hematocrit 25.4 % (30.3-42.9); Hemoglobin 8.6 gm/dl (10.1-14.3)
[2021-12-17] MEDS: MORPHINE 2 MG/1 ML INJ IV PRN ×2 (04:18→11:20)
[2021-12-17 04:57] LABS: BUN/Creatinine Ratio 13; Blood Urea Nitrogen 8 mg/dL (7-17); Calcium 7.5 mg/dL (8.4-10.2); Hemolysis Index 6
[2021-12-17] MEDS: VANCOMYCIN/NS 1 GM/250 ML 1 GM/250 ML BAG IV SCH (05:07)
[2021-12-17 05:14] LABS: Hematocrit TNR % (30.3-42.9); Hemoglobin TNR gm/dl (10.1-14.3); Mean Corpuscular HGB Conc TNR % (30-34); Mean Corpuscular Volume TNR fl (79-97); Mean Platelet Volume TNR fl (6-12); Platelet Count TNR K/mm3 (140-440); Red Blood Count TNR M/mm3 (3.65-5.03); Red Cell Distribution Width TNR % (13.2-15.2)
[2021-12-17 05:33] LABS: Basophils # (Auto) 0.1 K/mm3 (0.0-0.1); Basophils % (Auto) 1.1 % (0.0-1.8); Eosinophils # (Auto) 0.1 K/mm3 (0.0-0.4); Eosinophils % (Auto) 1.7 % (0.0-4.3); Hematocrit 25.3 % (30.3-42.9); Hemoglobin 8.7 gm/dl (10.1-14.3); Lymphocytes # (Auto) 1.3 K/mm3 (1.2-5.4); Lymphocytes % (Auto) 15.4 % (13.4-35.0); Mean Corpuscular HGB Conc 34 % (30-34); Mean Corpuscular Volume 88 fl (79-97); Monocytes # (Auto) 0.7 K/mm3 (0.0-0.8); Monocytes % (Auto) 8.9 % (0.0-7.3); Platelet Count 346 K/mm3 (140-440); Red Blood Count 2.87 M/mm3 (3.65-5.03); Red Cell Distribution Width 15.8 % (13.2-15.2)
[2021-12-17 05:42] LABS: BUN/Creatinine Ratio 13; Blood Urea Nitrogen 8 mg/dL (7-17); Calcium 7.7 mg/dL (8.4-10.2); Hemolysis Index 5
[2021-12-17] MEDS: PANTOPRAZOLE 40 MG TAB PO SCH ×2 (08:54→16:14)
[2021-12-17] MEDS: POTASSIUM CHLORIDE ER 20 MEQ TAB PO SCH ×2 (08:54→13:47)
[2021-12-17] MEDS: APIXABAN 2.5 MG TAB PO SCH ×2 (09:04→21:00)
[2021-12-17] MEDS: amLODIPine 5 MG TAB PO SCH (09:04)
[2021-12-17] MEDS: CILOSTAZOL 100 MG TAB PO SCH ×2 (09:04→21:00)
[2021-12-17] MEDS: VENLAFAXINE 75 MG TAB PO SCH (09:04)
[2021-12-17] MEDS: CLOPIDOGREL 75 MG TAB PO SCH (09:04)
[2021-12-17] MEDS: ONDANSETRON 4 MG/2 ML INJ IV PRN (11:19)
--- NOTE | 2021-12-17 11:23 | Progress Note ---
<MACIEJJordenGALESebas - Last Filed: 12/17/21 13:38> Assessment and Plan Assessment and plan: This is a 56-year-old female with PVD, HTN, HLD, anemia, neuropathy admitted with left femoral artery injury resulting in hemorrhage Neuro: h/o CVA -Reorientation as needed -Maintain sleep-wake cycle -As needed analgesia Cardiac: h/o HTN, HLD, CAD -Hold home antihypertensive regimen as patient is currently borderline hypotensive -Blood pressure monitor per protocol -Lipitor Respiratory: h/o nicotine abuse -Currently on room air -Supplemental oxygen as needed -SPO2 monitoring -Pulmonary hygiene GI: Moderate Protein calorie malnutrition -24 hours -165 mL -PPI -Cardiac diet with supplements -BR: colace : NAD -Monitor intake and output -Renally dose medications -Avoid nephrotoxic medications -Trend BMP ID: ? Left femoral arterial infection -Infectious disease consulted, appreciate recommendation -Antibiotic therapy with cefepime and vancomycin -shelter abx -s/p PICC -f/u blood culture -Monitor WBC and temperature curve Endo: NAD -Avoid hypoglycemia Heme: ABLA, (bleeding with exception of left common femoral arterial patch, Leukocytosis, h/o severe PVD s/p left femoral-popliteal bypass with fasciotomy, right lower extremity right revascularization -Presents with a hemoglobin of 7.6-> 11.1 -CT abdomen/pelvis showed small amount of active hemorrhage in the left inguinal region and a large renal hematoma, excessive swelling throughout the entire left leg and 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 -S/p 7 units PRBC, 1 FFP -Vascular surgery and CCM consulted, appreciate recommendations -S/p exploration of left groin with open thrombectomy of left SFA, repair of left common femoral artery, coverage of left femoral artery with muscle flap and wound VAC placement -Continue Pletal, plavix -s/p Heparin gtt -Serial h/h -Trend CBC -Transfuse hemoglobin less than 7 -Continue Eliquis per vascular -SCDs to BLE while in bed Critical Care Billing: The high probability of a clinically significant, sudden or life threatening deterioration of the [vascular] system(s) required my full and direct attention, intervention and personal management. The aggregate critical care time was [60] minutes. This time is in addition to time spent performing reported procedures but includes the following: [x] Data Review and interpretation [x] Patient assessment and monitoring of vital signs [x] Documentation [x] Medication orders and management Disposition Plan: transfer to im Total Time Spent with Patient (Minutes): 60 History Interval history: This is a 56-year-old female with PVD s/p femoral-popliteal bypass surgery c/b compartment syndrome s/p fasciotomy, occlusion infection, HTN, CVA, HLD, anemia, neuropathy presented to the emergency department on 12/13 with hemorrhage from h er wound VAC site after her home health care nurse changed her wound VAC per patient. Work-up in the emergency department revealed hemoglobin of 6.6 and she was transfused 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 Vascular surgery was consulted and patient was taken to [facility] for repair of femoral artery injury. Patient was admitted to the hospitalist service with consult to [facility]. Hospital course to date 12/15: Currently in CCU, decreased urine output reported overnight. We will continue lactated Ringer's. Continue serial H&H. 12/16: patient noted to be anemic and given prbc. repeat post transfusion h/h is 9.5/27.4. Will need shelter abx therefore PICC ordered. 12/17: No acute events reported overnight. H&H stable. Transfer to IM per vascular request Hospitalist Physical - Constitutional Vitals: Temp Pulse Resp BP Pulse Ox 97.9 F 78 15 170/77 99 12/17/21 04:00 12/17/21 09:04 12/17/21 08:00 12/17/21 09:04 12/17/21 08:00 General appearance: Present: no acute distress - EENT Eyes: Present: PERRL, EOM intact ENT: hearing intact, clear oral mucosa, edentulous - Neck Neck: Present: normal ROM - Respiratory Respiratory effort: normal Respiratory: bilateral: CTA - Cardiovascular Rhythm: regular Heart Sounds: Present: S1 & S2. Absent: systolic murmur, diastolic murmur - Extremities Extremities: pulses intact, pulses symmetrical Extremity abnormal: edema, erythema, pulses diminished Peripheral Pulses: within normal limits - Abdominal General gastrointestinal: soft, non-tender, non-distended, normal bowel sounds - Integumentary Integumentary: Present: warm, dry - Psychiatric Psychiatric: cooperative - Neurologic Neurologic: CNII-XII intact, no focal deficits, moves all extremities - Allied Health Allied health notes reviewed: nursing Results - Labs CBC & Chem 7: 12/17/21 05:00 12/17/21 05:00 Labs: Laboratory Last Values WBC 8.2 K/mm3 (4.5-11.0) 12/17/21 05:00 RBC 2.87 M/mm3 (3.65-5.03) L 12/17/21 05:00 Hgb 8.7 gm/dl (10.1-14.3) L 12/17/21 05:00 Hct 25.3 % (30.3-42.9) L 12/17/21 05:00 MCV 88 fl (79-97) 12/17/21 05:00 MCH 30 pg (28-32) 12/17/21 05:00 MCHC 34 % (30-34) 12/17/21 05:00 RDW 15.8 % (13.2-15.2) H 12/17/21 05:00 Plt Count 346 K/mm3 (140-440) 12/17/21 05:00 Lymph % (Auto) 15.4 % (13.4-35.0) 12/17/21 05:00 Mcdonald % (Auto) 8.9 % (0.0-7.3) H 12/17/21 05:00 Eos % (Auto) 1.7 % (0.0-4.3) 12/17/21 05:00 Baso % (Auto) 1.1 % (0.0-1.8) 12/17/21 05:00 Lymph # (Auto) 1.3 K/mm3 (1.2-5.4) 12/17/21 05:00 Mcdonald # (Auto) 0.7 K/mm3 (0.0-0.8) 12/17/21 05:00 Eos # (Auto) 0.1 K/mm3 (0.0-0.4) 12/17/21 05:00 Baso # (Auto) 0.1 K/mm3 (0.0-0.1) 12/17/21 05:00 Seg Neutrophils % 72.9 % (40.0-70.0) H 12/17/21 05:00 Seg Neutrophils # 6.0 K/mm3 (1.8-7.7) 12/17/21 05:00 PT 18.0 Sec. (12.2-14.9) H 12/14/21 13:40 INR 1.32 (0.87-1.13) H 12/14/21 13:40 APTT 20.4 Sec. (24.2-36.6) L 12/14/21 13:40 Heparin Anti-Xa Level 0.66 U.I./ml (0.3-0.7) 12/14/21 22:43 Sodium 139 mmol/L (137-145) 12/17/21 05:00 Potassium 3.1 mmol/L (3.6-5.0) L 12/17/21 05:00 Chloride 107.6 mmol/L (98-107) H 12/17/21 05:00 Carbon Dioxide 24 mmol/L (22-30) 12/17/21 05:00 Anion Gap 11 mmol/L 12/17/21 05:00 BUN 8 mg/dL (7-17) 12/17/21 05:00 Creatinine 0.6 mg/dL (0.6-1.2) 12/17/21 05:00 Estimated GFR > 60 ml/min 12/17/21 05:00 BUN/Creatinine Ratio 13 % 12/17/21 05:00 Glucose 96 mg/dL (65-100) 12/17/21 05:00 Calcium 7.7 mg/dL (8.4-10.2) L 12/17/21 05:00 Magnesium 1.50 mg/dL (1.7-2.3) L 12/17/21 05:00 Total Bilirubin 0.30 mg/dL (0.1-1.2) 12/13/21 18:25 AST 13 units/L (5-40) 12/13/21 18:25 ALT < 5 units/L (7-56) L 12/13/21 18:25 Alkaline Phosphatase 118 units/L (35-129) 12/13/21 18:25 Total Protein 4.6 g/dL (6.3-8.2) L 12/13/21 18:25 Albumin 2.1 g/dL (3.9-5) L 12/13/21 18:25 Albumin/Globulin Ratio 0.8 % 12/13/21 18:25 Blood Type O POSITIVE 12/13/21 20:59 Antibody Screen Negative 12/13/21 20:59 Crossmatch See Detail 12/13/21 20:59 Victor/IV: Voiding Method Indwelling Catheter Active Medications - Current Medications Current Medications: Generic Name Dose Route Start Last Admin Trade Name Freq PRN Reason Stop Dose Admin Acetaminophen 650 mg 12/13/21 23:13 Acetaminophen 325 Mg Tab PO Q4H PRN Pain MILD(1-3)/Fever >100.5/GONZALEZ Albuterol 2.5 mg 12/13/21 23:13 Albuterol 2.5 Mg/3 Ml Nebu IH Q3HRT PRN Shortness Of Breath Amlodipine Besylate 2.5 mg 12/17/21 10:00 12/17/21 09:04 Amlodipine 5 Mg Tab PO 2.5 mg QDAY SRAVAN Administration Apixaban 2.5 mg 12/16/21 22:00 12/17/21 09:04 Apixaban 2.5 Mg Tab PO 2.5 mg Q12HR SRAVAN Administration Protocol Atorvastatin Calcium 40 mg 12/14/21 10:00 12/17/21 09:04 Atorvastatin 40 Mg Tab PO 40 mg DAILY SRAVAN Administration Cilostazol 50 mg 12/14/21 10:00 12/17/21 09:04 Cilostazol 100 Mg Tab PO 50 mg BID SRAVAN Administration Clopidogrel Bisulfate 75 mg 12/14/21 10:00 12/17/21 09:04 Clopidogrel 75 Mg Tab PO 75 mg QDAY SRAVAN Administration Cefepime HCl 1 gm in 100 mls @ 200 mls/hr 12/14/21 13:00 12/17/21 01:00 Cefepime/Ns 1 Gm/100 Ml IV Infused Q12H SRAVAN Infusion Protocol Vancomycin HCl 1 gm in 250 mls @ 166.667 mls/hr 12/15/21 06:00 12/17/21 06:39 Vancomycin/Ns 1 Gm/250 Ml IV Infused Q24H SRAVAN Infusion Morphine Sulfate 2 mg 12/13/21 23:13 12/17/21 11:20 Morphine 2 Mg/1 Ml Inj IV 2 mg Q4H PRN Administration Pain, Moderate (4-6) Morphine Sulfate 4 mg 12/13/21 23:13 12/16/21 23:53 Morphine 4 Mg/1 Ml Inj IV 4 mg Q4H PRN Administration Pain , Severe (7-10) Naloxone HCl 0.1 mg 12/14/21 15:02 Naloxone 0.4 Mg/1 Ml Inj IV Q2MIN PRN Res Rate </= 8 or 02 SAT < 92% Ondansetron HCl 4 mg 12/14/21 15:02 12/17/21 11:19 Ondansetron 4 Mg/2 Ml Inj IV 4 mg Q8H PRN Administration Nausea And Vomiting Pantoprazole Sodium 40 mg 12/14/21 16:30 12/17/21 08:54 Pantoprazole 40 Mg Tab PO 40 mg BIDAC SRAVAN Administration Potassium Chloride 40 meq 12/17/21 08:00 12/17/21 08:54 Potassium Chloride Er 20 Meq Tab PO 12/17/21 12:01 40 meq Q4H SRAVAN Administration Sodium Chloride 10 ml 12/13/21 23:13 12/16/21 02:53 Sodium Chloride 0.9% 10 Ml Flush Syringe IV 10 ml PRN PRN Administration LINE FLUSH Venlafaxine HCl 75 mg 12/17/21 10:00 12/17/21 09:04 Venlafaxine 75 Mg Tab PO 75 mg DAILY SRAVAN Administration Nutrition/Malnutrition Assess - Dietary Evaluation Nutrition/Malnutrition Findings: Nutrition Notes Start: 12/14/21 12:00 Freq: Status: Active Protocol: Document 12/15/21 09:48 MERARI (Rec: 12/15/21 10:10 MERARI [id number]) Nutrition Notes Initial or Follow up Brief Note Current Diagnosis Hypertension Other Pertinent Diagnosis PVD s/p L-FP Bypass, L-FP Bypass Occlusion, L-Groin Infection, L-MED PEDS Injury Current Diet Cardiac Diet (since 12/13), D Suppl (since 12/15). Height 5 ft 2 in Weight 40.823 kg Calder Body Weight (kg) 50.00 BMI 16.5 Weight change and time frame No body weight change reported in 1 day. Weight Status Underweight Subjective/Other Information RD consult for dietary supplementation assessment. No reports available on Pt's PO intake of meals at the time , will assess at F/U. prescribed dietary supplements without RD consult , I will continue the prescription to compensate for possible poor or insufficient PO intake of meals, and to support wound healing processes, along with compensation for blood loss during LOS. Pt is on Room Air, O2 saturation @ 100%, according to Physical Assessment History notes. Procedure on 12/14: Repair of L-MED PEDS w/bovine pericardial patch, woundVac placement, well tolerated, according to Operative Report notes. Percent of energy/protein needs met: Prescribed Cardiac Diet provides for energy/protein needs (2,230 Kcal/85 g) during LOS; additionally, Dietary Supplements will compensate for possible poor or insufficient PO intake of meals with 1,050 Kcal and 60 g of protein. #2 Nutrition Diagnosis Increased nutrient needs ( specify in comment below) Comments: Protein to support wound healing and compensate for blood loss. Etiology L-Groin Infection, L-MED PEDS Injury, As Evidenced by Signs and Symptoms Procedure on 12/14: Repair of L-MED PEDS w/bovine pericardial patch, woundVac placement, well tolerated, according to Operative Report notes. #1 Nutrition Diagnosis Underweight Diagnosis Progress(for reassessment Continues documentation) Is patient on ventilator? No Is Patient Ambulatory and/or Out of Bed No REE-([facility]-confined to bed) 1134.852 Kcal/Kg value to use for calculation 30 Approximate Energy Requirements Using 1225 kcal/Kg Calculation Used for Recommendations Kcal/kg Additional Notes Protein: 1.5-2 g/Kg ABW; 62-84 g/day. Fluids: 1 ml/Kcal, or as per MD. Nutrition Intervention Change Diet Order: Continue Cardiac Diet. Add Supplement/Snack (indicate name/kcal Start 8 fl oz Ensure Enlive; /protein ) TID. Provides kCal: 1,050 Provides Protein (gm) 60 Goal #1 Compensate, through dietary supplementation, for possible poor or insufficient PO intake of meals during LOS. Goal #2 Support, through dietary supplementation, wound healing processes during LOS. Goal #3 Adjust the dietary intervention to better serve Pt's needs and clinical conditions during LOS. Follow-Up By: 12/22/21 Additional Comments Continue monitoring food tolerance, %PO intake of meals , dietary supplements, and BM. <ARNOLD WELCH - Last Filed: 12/18/21 07:33> Assessment and Plan Assessment and plan: I saw and evaluated the patient. I agree with the findings and the plan of care as documented in the Nurse Practitioner's~note, with the following corrections and additions. Hospitalist Physical - Constitutional Vitals: Temp Pulse Resp BP Pulse Ox 97.9 F 75 8 L 182/80 99 08/01/22 04:00 12/18/21 06:00 12/18/21 06:00 12/18/21 06:00 12/18/21 06:00 Results - Labs CBC & Chem 7: 12/18/21 Unknown 12/18/21 04:00 Labs: Laboratory Last Values WBC 6.8 K/mm3 (4.5-11.0) 12/18/21 Unknown RBC 3.15 M/mm3 (3.65-5.03) L 12/18/21 Unknown Hgb 9.4 gm/dl (10.1-14.3) L 12/18/21 Unknown Hct 28.1 % (30.3-42.9) L 12/18/21 Unknown MCV 89 fl (79-97) 12/18/21 Unknown MCH 30 pg (28-32) 12/18/21 Unknown MCHC 34 % (30-34) 12/18/21 Unknown RDW 16.5 % (13.2-15.2) H 12/18/21 Unknown Plt Count 344 K/mm3 (140-440) 12/18/21 Unknown Lymph % (Auto) 15.4 % (13.4-35.0) 12/17/21 05:00 Mcdonald % (Auto) 8.9 % (0.0-7.3) H 12/17/21 05:00 Eos % (Auto) 1.7 % (0.0-4.3) 12/17/21 05:00 Baso % (Auto) 1.1 % (0.0-1.8) 12/17/21 05:00 Lymph # (Auto) 1.3 K/mm3 (1.2-5.4) 12/17/21 05:00 Mcdonald # (Auto) 0.7 K/mm3 (0.0-0.8) 12/17/21 05:00 Eos # (Auto) 0.1 K/mm3 (0.0-0.4) 12/17/21 05:00 Baso # (Auto) 0.1 K/mm3 (0.0-0.1) 12/17/21 05:00 Seg Neutrophils % 72.9 % (40.0-70.0) H 12/17/21 05:00 Seg Neutrophils # 6.0 K/mm3 (1.8-7.7) 12/17/21 05:00 PT 18.0 Sec. (12.2-14.9) H 12/14/21 13:40 INR 1.32 (0.87-1.13) H 12/14/21 13:40 APTT 20.4 Sec. (24.2-36.6) L 12/14/21 13:40 Heparin Anti-Xa Level 0.66 U.I./ml (0.3-0.7) 12/14/21 22:43 Sodium 139 mmol/L (137-145) 12/18/21 04:00 Potassium 3.5 mmol/L (3.6-5.0) L 12/18/21 04:00 Chloride 107.0 mmol/L (98-107) 12/18/21 04:00 Carbon Dioxide 26 mmol/L (22-30) 12/18/21 04:00 Anion Gap 10 mmol/L 12/18/21 04:00 BUN 6 mg/dL (7-17) L 12/18/21 04:00 Creatinine 0.5 mg/dL (0.6-1.2) L 12/18/21 04:00 Estimated GFR > 60 ml/min 12/18/21 04:00 BUN/Creatinine Ratio 12 % 12/18/21 04:00 Glucose 83 mg/dL (65-100) 12/18/21 04:00 Calcium 7.7 mg/dL (8.4-10.2) L 12/18/21 04:00 Magnesium 1.50 mg/dL (1.7-2.3) L 12/17/21 05:00 Total Bilirubin 0.30 mg/dL (0.1-1.2) 12/13/21 18:25 AST 13 units/L (5-40) 12/13/21 18:25 ALT < 5 units/L (7-56) L 12/13/21 18:25 Alkaline Phosphatase 118 units/L (35-129) 12/13/21 18:25 Total Protein 4.6 g/dL (6.3-8.2) L 12/13/21 18:25 Albumin 2.1 g/dL (3.9-5) L 12/13/21 18:25 Albumin/Globulin Ratio 0.8 % 07/27/22 18:25 Blood Type O POSITIVE 12/13/21 20:59 Antibody Screen Negative 12/13/21 20:59 Crossmatch See Detail 12/13/21 20:59 Victor/IV: Voiding Method Indwelling Catheter Active Medications - Current Medications Current Medications: Generic Name Dose Route Start Last Admin Trade Name Freq PRN Reason Stop Dose Admin Acetaminophen 650 mg 12/13/21 23:13 Acetaminophen 325 Mg Tab PO Q4H PRN Pain MILD(1-3)/Fever >100.5/GONZALEZ Albuterol 2.5 mg 12/13/21 23:13 Albuterol 2.5 Mg/3 Ml Nebu IH Q3HRT PRN Shortness Of Breath Amlodipine Besylate 2.5 mg 12/17/21 10:00 12/17/21 09:04 Amlodipine 5 Mg Tab PO 2.5 mg QDAY SRAVAN Administration Apixaban 2.5 mg 12/16/21 22:00 12/17/21 21:00 Apixaban 2.5 Mg Tab PO 2.5 mg Q12HR SRAVAN Administration Protocol Atorvastatin Calcium 40 mg 12/14/21 10:00 12/17/21 09:04 Atorvastatin 40 Mg Tab PO 40 mg DAILY SRAVAN Administration Cilostazol 50 mg 12/14/21 10:00 12/17/21 21:00 Cilostazol 100 Mg Tab PO 50 mg BID SRAVAN Administration Clopidogrel Bisulfate 75 mg 12/14/21 10:00 12/17/21 09:04 Clopidogrel 75 Mg Tab PO 75 mg QDAY SRAVAN Administration Hydralazine HCl 10 mg 12/17/21 14:23 12/18/21 06:04 Hydralazine 20 Mg/1 Ml Inj IV 10 mg Q4H PRN Administration Hypertension Cefepime HCl 1 gm in 100 mls @ 200 mls/hr 12/14/21 13:00 12/18/21 01:23 Cefepime/Ns 1 Gm/100 Ml IV 200 mls/hr Q12H SRAVAN Administration Protocol Vancomycin HCl 1 gm in 250 mls @ 166.667 mls/hr 12/15/21 06:00 12/18/21 05:30 Vancomycin/Ns 1 Gm/250 Ml IV 167 mls/hr Q24H SRAVAN Administration Morphine Sulfate 2 mg 12/13/21 23:13 12/17/21 11:20 Morphine 2 Mg/1 Ml Inj IV 2 mg Q4H PRN Administration Pain, Moderate (4-6) Morphine Sulfate 4 mg 12/13/21 23:13 12/18/21 05:30 Morphine 4 Mg/1 Ml Inj IV 4 mg Q4H PRN Administration Pain , Severe (7-10) Naloxone HCl 0.1 mg 12/14/21 15:02 Naloxone 0.4 Mg/1 Ml Inj IV Q2MIN PRN Res Rate </= 8 or 02 SAT < 92% Ondansetron HCl 4 mg 12/14/21 15:02 12/17/21 11:19 Ondansetron 4 Mg/2 Ml Inj IV 4 mg Q8H PRN Administration Nausea And Vomiting Pantoprazole Sodium 40 mg 12/14/21 16:30 12/17/21 16:14 Pantoprazole 40 Mg Tab PO 40 mg BIDAC SRAVAN Administration Sodium Chloride 10 ml 12/13/21 23:13 12/16/21 02:53 Sodium Chloride 0.9% 10 Ml Flush Syringe IV 10 ml PRN PRN Administration LINE FLUSH Venlafaxine HCl 75 mg 12/17/21 10:00 12/17/21 09:04 Venlafaxine 75 Mg Tab PO 75 mg DAILY SRAVAN Administration Nutrition/Malnutrition Assess - Dietary Evaluation Nutrition/Malnutrition Findings: Nutrition Notes Start: 12/14/21 12:00 Freq: Status: Active Protocol: Document 12/15/21 09:48 MERARI (Rec: 12/15/21 10:10 MERARI [id number]) Nutrition Notes Initial or Follow up Brief Note Current Diagnosis Hypertension Other Pertinent Diagnosis PVD s/p L-FP Bypass, L-FP Bypass Occlusion, L-Groin Infection, L-MED PEDS Injury Current Diet Cardiac Diet (since 12/13), D Suppl (since 12/15). Height 5 ft 2 in Weight 40.823 kg Calder Body Weight (kg) 50.00 BMI 16.5 Weight change and time frame No body weight change reported in 1 day. Weight Status Underweight Subjective/Other Information RD consult for dietary supplementation assessment. No reports available on Pt's PO intake of meals at the time , will assess at F/U. prescribed dietary supplements without RD consult , I will continue the prescription to compensate for possible poor or insufficient PO intake of meals, and to support wound healing processes, along with compensation for blood loss during LOS. Pt is on Room Air, O2 saturation @ 100%, according to Physical Assessment History notes. Procedure on 12/14: Repair of L-MED PEDS w/bovine pericardial patch, woundVac placement, well tolerated, according to Operative Report notes. Percent of energy/protein needs met: Prescribed Cardiac Diet provides for energy/protein needs (2,230 Kcal/85 g) during LOS; additionally, Dietary Supplements will compensate for possible poor or insufficient PO intake of meals with 1,050 Kcal and 60 g of protein. #2 Nutrition Diagnosis Increased nutrient needs ( specify in comment below) Comments: Protein to support wound healing and compensate for blood loss. Etiology L-Groin Infection, L-MED PEDS Injury, As Evidenced by Signs and Symptoms Procedure on 12/14: Repair of L-MED PEDS w/bovine pericardial patch, woundVac placement, well tolerated, according to Operative Report notes. #1 Nutrition Diagnosis Underweight Diagnosis Progress(for reassessment Continues documentation) Is patient on ventilator? No Is Patient Ambulatory and/or Out of Bed No REE-([facility]confined [facility]) 1134.852 Kcal/Kg value to use for calculation 30 Approximate Energy Requirements Using 1225 kcal/Kg Calculation Used for Recommendations Kcal/kg Additional Notes Protein: 1.5-2 g/Kg ABW; 62-84 g/day. Fluids: 1 ml/Kcal, or as per MD. Nutrition Intervention Change Diet Order: Continue Cardiac Diet. Add Supplement/Snack (indicate name/kcal Start 8 fl oz Ensure Enlive; /protein ) TID. Provides kCal: 1,050 Provides Protein (gm) 60 Goal #1 Compensate, through dietary supplementation, for possible poor or insufficient PO intake of meals during LOS. Goal #2 Support, through dietary supplementation, wound healing processes during LOS. Goal #3 Adjust the dietary intervention to better serve Pt's needs and clinical conditions during LOS. Follow-Up By: 12/22/21 Additional Comments Continue monitoring food tolerance, %PO intake of meals , dietary supplements, and BM.
--- NOTE | 2021-12-17 13:41 | Event Note ---
Date: 12/17/21 No bleeding events. Wound vac functioning without issue. No bleeding from calf or thigh dressing. Will need to change thigh and calf dressing daily until wound vac applied this upcoming week. Lower extremities are unchanged. Motor and sensory deficits are stable. Okay with transfer to IMCU. CANNOT transfer to floor until wound vacs are all in place due to risk of bleeding.
[2021-12-17] MEDS: CEFEPIME/NS 1 GM/100 ML 1 GM/100 ML BAG IV SCH ×2 (13:47)
[2021-12-17] MEDS: hydrALAZINE 20 MG/1 ML INJ IV PRN (14:34)
[2021-12-17] MEDS: MORPHINE 4 MG/1 ML INJ IV PRN (20:12)
[2021-12-18] MEDS: MORPHINE 4 MG/1 ML INJ IV PRN ×5 (00:29→21:35)
[2021-12-18] MEDS: CEFEPIME/NS 1 GM/100 ML 1 GM/100 ML BAG IV SCH (01:23)
[2021-12-18] MEDS: VANCOMYCIN/NS 1 GM/250 ML 1 GM/250 ML BAG IV SCH (05:30)
[2021-12-18] MEDS: hydrALAZINE 20 MG/1 ML INJ IV PRN (06:04)
[2021-12-18 06:28] LABS: Hematocrit 28.1 % (30.3-42.9); Hemoglobin 9.4 gm/dl (10.1-14.3); Mean Corpuscular HGB Conc 34 % (30-34); Mean Corpuscular Volume 89 fl (79-97); Platelet Count 344 K/mm3 (140-440); Red Blood Count 3.15 M/mm3 (3.65-5.03); Red Cell Distribution Width 16.5 % (13.2-15.2)
[2021-12-18 06:38] LABS: Blood Urea Nitrogen 6 mg/dL (7-17); Calcium 7.7 mg/dL (8.4-10.2); Hemolysis Index 5
[2021-12-18 06:42] LABS: BUN/Creatinine Ratio 12
[2021-12-18] MEDS: ONDANSETRON 4 MG/2 ML INJ IV PRN ×2 (07:53→17:40)
[2021-12-18] MEDS: PANTOPRAZOLE 40 MG TAB PO SCH ×2 (09:52→17:30)
[2021-12-18] MEDS: CILOSTAZOL 100 MG TAB PO SCH ×2 (09:52→21:34)
[2021-12-18] MEDS: CLOPIDOGREL 75 MG TAB PO SCH (09:53)
[2021-12-18] MEDS: VENLAFAXINE 75 MG TAB PO SCH (09:53)
[2021-12-18] MEDS: APIXABAN 2.5 MG TAB PO SCH ×2 (09:53→21:34)
[2021-12-18] MEDS: amLODIPine 5 MG TAB PO SCH (09:53)
--- NOTE | 2021-12-18 10:28 | Progress Note ---
<VINCENT KERNS - Last Filed: 12/18/21 17:56> Assessment and Plan Assessment and plan: This is a 56-year-old female with known history of CAD, HTN, HLD, and severe PVD s/p femoral-popliteal bypass surgery complicated with compartment syndrome required fasciotomy and right leg revascularization. 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 Patient was recently discharged home on 12/11 with [facility], patient presented back in the hospital on 12/13 with acute blood loss anemia secondary to hemorrhage/acute blood loss from home wound VAC. Hospital course to date 12/15: Currently in CCU, decreased urine output reported overnight. We will continue lactated Ringer's. Continue serial H&H. 12/16: patient noted to be anemic and given prbc. repeat post transfusion h/h is 9.5/27.4. Will need computer terminal operator abx therefore PICC ordered. 12/17: No acute events reported overnight. H&H stable. Transfer to [facility] per vascular request 12/18: Remains stable. Bleeding resolved and H&H remains stable. Awaiting additi onal wound VAC placement on LLE by wound care. Plan for possible discharge to a rehab facility, case management to arrange. Assessment and Plan #Severe Peripheral Vascular Disease #H/o left femoral-popliteal bypass with fasciotomy and Right lower extremity Revascularization #Recent Occlusive Infection s/p excision of left common femoral to left below- knee popliteal artery bypass graft - Extensive PVD history with multiple procedures, was recently discharge home on 12/11 with wound VAC and [facility] - Readmitted 2 days later for LLE hemorrhage - Vascular Surgery Consulted, appreciate recommendations - 12/14 s/p exploration of left groin with open thrombectomy of left SFA, repair of left common femoral artery, coverage of left femoral artery with muscle flap and wound VAC placement - On pletal, plavix, and Eliquis - Wound culture from, last admit on 12/04 with Klebsiella, E. coli, Pseudomonas, MRSA, and Enterococcus faecalis - ID also consult, appreciate recommendation - Continue IV Abx- Cefepine and Vancomycin - ID recommendations also noted, plan for long-Term IV Abx- vancomycin 1 g every 24 hours and cefepime 2 g every 12 hours until 01/05/2022 - Case management also on consulted for discharge planning #Acute Blood Loss Anemia 2/ #Hemorrhage from LLE Wound VAC - Presented with low H&H, s/p 7units of PRBCs and 1FFP - CT abdomen/pelvis showed small amount of active hemorrhage in the left inguinal region and a large renal hematoma, excessive swelling throughout the entire left leg and 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 - Most likely secondary to above - s/p Left groin exploration and open thrombectomy as described above by Vascular Surgery - Bleeding improved and H&H remains stable - Continue to trend H&H - Transfuse for Hgb less than 7 - On pletal, plavix, and Eliquis #Hypertension #Hyperlipidemia - BP is stable now - Home meds resumed - Continue blood pressure monitor per protocol - Maintain SBP less than 160 #Moderate Protein Calorie Malnutrition - Encourage PO intake - Continue Dietary supplementation - Nutrition consulted #H/o Nicotine Dependence - Patient reported that she has not smoked since November 17 - Smoking cessation education reiterated, patient encourage to remain quit and refrain from smoking #GI/DVT Prophylaxis - PPI- Protonix - On pletal, plavix, and Eliquis #Advance Care Planning - Disease education data, care plan, diagnoses, and prognosis were discussed with patient at the bedside. Patient is a FULL code. Patient acknowledged understanding and agreed with current care plan. - Plan for possible discharge to a rehab facility, case management to arrange. The high probability of a clinically significant, sudden or life threatening deterioration of the [multiple] system(s) required my full and direct attention, intervention and personal management. The aggregate critical care time was [60] minutes. This time is in addition to time spent performing reported procedures but includes the following: [x] Data Review and interpretation [x] Patient assessment and monitoring of vital signs [x] Documentation [x] Medication orders and management Disposition Plan: IMCU Total Time Spent with Patient (Minutes): 60 History Interval history: Patient seen and examined at the bedside. Fully AAO, on RA, denied any pain nor any discomfort at this time. VSS. LLE dressing and left groin wound VAC noted with no complications. BLE pedal pulses appreciated using a doppler. RUTH overnight. Hospitalist Physical - Constitutional Vitals: Temp Pulse Resp BP Pulse Ox 97.9 F 91 H 17 117/76 97 12/18/21 04:00 12/18/21 08:01 12/18/21 08:01 12/18/21 08:01 12/18/21 08:01 General appearance: Present: no acute distress, cachectic - EENT Eyes: Present: PERRL ENT: hearing intact - Neck Neck: Present: normal ROM - Respiratory Respiratory effort: normal Respiratory: bilateral: diminished - Cardiovascular Rhythm: regular Heart Sounds: Present: S1 & S2 - Extremities Extremities: no ischemia, abnormal (LLE dressing and left groin Wound VAC noted) Extremity abnormal: pulses diminished, other (LLE swelling, warm to touch, + pedal pulse with doppler) - Peripheral Assessment Left Lower Extremity Edema Type: Pitting Edema Degree: 2+ Capillary Refill: < 3 seconds Skin Temperature: Warm Peripheral Pulses: abnormal (BLE pedal pulses appreciated using a doppler) - Abdominal General gastrointestinal: soft, non-distended, normal bowel sounds - Integumentary Integumentary: Present: warm, dry - Psychiatric Psychiatric: appropriate mood/affect, cooperative - Neurologic Neurologic: CNII-XII intact, moves all extremities - Allied Health Allied health notes reviewed: nursing, case management Results - Labs CBC & Chem 7: 12/18/21 Unknown 12/18/21 04:00 Labs: Laboratory Last Values WBC 6.8 K/mm3 (4.5-11.0) 12/18/21 Unknown RBC 3.15 M/mm3 (3.65-5.03) L 12/18/21 Unknown Hgb 9.4 gm/dl (10.1-14.3) L 12/18/21 Unknown Hct 28.1 % (30.3-42.9) L 12/18/21 Unknown MCV 89 fl (79-97) 12/18/21 Unknown MCH 30 pg (28-32) 12/18/21 Unknown MCHC 34 % (30-34) 12/18/21 Unknown RDW 16.5 % (13.2-15.2) H 12/18/21 Unknown Plt Count 344 K/mm3 (140-440) 12/18/21 Unknown Lymph % (Auto) 15.4 % (13.4-35.0) 12/17/21 05:00 [place] % (Auto) 8.9 % (0.0-7.3) H 12/17/21 05:00 Eos % (Auto) 1.7 % (0.0-4.3) 12/17/21 05:00 Baso % (Auto) 1.1 % (0.0-1.8) 12/17/21 05:00 Lymph # (Auto) 1.3 K/mm3 (1.2-5.4) 12/17/21 05:00 [place] # (Auto) 0.7 K/mm3 (0.0-0.8) 12/17/21 05:00 Eos # (Auto) 0.1 K/mm3 (0.0-0.4) 12/17/21 05:00 Baso # (Auto) 0.1 K/mm3 (0.0-0.1) 12/17/21 05:00 Seg Neutrophils % 72.9 % (40.0-70.0) H 12/17/21 05:00 Seg Neutrophils # 6.0 K/mm3 (1.8-7.7) 12/17/21 05:00 PT 18.0 Sec. (12.2-14.9) H 12/14/21 13:40 INR 1.32 (0.87-1.13) H 12/14/21 13:40 APTT 20.4 Sec. (24.2-36.6) L 12/14/21 13:40 Heparin Anti-Xa Level 0.66 U.I./ml (0.3-0.7) 12/14/21 22:43 Sodium 139 mmol/L (137-145) 12/18/21 04:00 Potassium 3.5 mmol/L (3.6-5.0) L 12/18/21 04:00 Chloride 107.0 mmol/L (98-107) 12/18/21 04:00 Carbon Dioxide 26 mmol/L (22-30) 12/18/21 04:00 Anion Gap 10 mmol/L 12/18/21 04:00 BUN 6 mg/dL (7-17) L 12/18/21 04:00 Creatinine 0.5 mg/dL (0.6-1.2) L 12/18/21 04:00 Estimated GFR > 60 ml/min 12/18/21 04:00 BUN/Creatinine Ratio 12 % 12/18/21 04:00 Glucose 83 mg/dL (65-100) 12/18/21 04:00 Calcium 7.7 mg/dL (8.4-10.2) L 12/18/21 04:00 Magnesium 1.50 mg/dL (1.7-2.3) L 12/17/21 05:00 Total Bilirubin 0.30 mg/dL (0.1-1.2) 12/13/21 18:25 AST 13 units/L (5-40) 12/13/21 18:25 ALT < 5 units/L (7-56) L 12/13/21 18:25 Alkaline Phosphatase 118 units/L (35-129) 12/13/21 18:25 Total Protein 4.6 g/dL (6.3-8.2) L 12/13/21 18:25 Albumin 2.1 g/dL (3.9-5) L 12/13/21 18:25 Albumin/Globulin Ratio 0.8 % 12/13/21 18:25 Blood Type O POSITIVE 12/13/21 20:59 Antibody Screen Negative 12/13/21 20:59 Crossmatch See Detail 12/13/21 20:59 Victor/IV: Voiding Method Indwelling Catheter Active Medications - Current Medications Current Medications: Generic Name Dose Route Start Last Admin Trade Name Freq PRN Reason Stop Dose Admin Acetaminophen 650 mg 12/13/21 23:13 Acetaminophen 325 Mg Tab PO Q4H PRN Pain MILD(1-3)/Fever >100.5/GONZALEZ Albuterol 2.5 mg 12/13/21 23:13 Albuterol 2.5 Mg/3 Ml Nebu IH Q3HRT PRN Shortness Of Breath Amlodipine Besylate 2.5 mg 12/17/21 10:00 12/18/21 09:53 Amlodipine 5 Mg Tab PO 2.5 mg QDAY SRAVAN Administration Apixaban 2.5 mg 12/16/21 22:00 12/18/21 09:53 Apixaban 2.5 Mg Tab PO 2.5 mg Q12HR SRAVAN Administration Protocol Atorvastatin Calcium 40 mg 12/14/21 10:00 12/18/21 09:52 Atorvastatin 40 Mg Tab PO 40 mg DAILY SRAVAN Administration Cilostazol 50 mg 12/14/21 10:00 12/18/21 09:52 Cilostazol 100 Mg Tab PO 50 mg BID SRAVAN Administration Clopidogrel Bisulfate 75 mg 12/14/21 10:00 12/18/21 09:53 Clopidogrel 75 Mg Tab PO 75 mg QDAY SRAVAN Administration Hydralazine HCl 10 mg 12/17/21 14:23 12/18/21 06:04 Hydralazine 20 Mg/1 Ml Inj IV 10 mg Q4H PRN Administration Hypertension Cefepime HCl 1 gm in 100 mls @ 200 mls/hr 12/14/21 13:00 12/18/21 01:23 Cefepime/Ns 1 Gm/100 Ml IV 200 mls/hr Q12H SRAVAN Administration Protocol Vancomycin HCl 1 gm in 250 mls @ 166.667 mls/hr 12/15/21 06:00 12/18/21 05:30 Vancomycin/Ns 1 Gm/250 Ml IV 167 mls/hr Q24H SRAVAN Administration Morphine Sulfate 2 mg 12/13/21 23:13 12/17/21 11:20 Morphine 2 Mg/1 Ml Inj IV 2 mg Q4H PRN Administration Pain, Moderate (4-6) Morphine Sulfate 4 mg 12/13/21 23:13 12/18/21 09:49 Morphine 4 Mg/1 Ml Inj IV 4 mg Q4H PRN Administration Pain , Severe (7-10) Naloxone HCl 0.1 mg 12/14/21 15:02 Naloxone 0.4 Mg/1 Ml Inj IV Q2MIN PRN Res Rate </= 8 or 02 SAT < 92% Ondansetron HCl 4 mg 12/14/21 15:02 12/18/21 07:53 Ondansetron 4 Mg/2 Ml Inj IV 4 mg Q8H PRN Administration Nausea And Vomiting Pantoprazole Sodium 40 mg 12/14/21 16:30 12/18/21 09:52 Pantoprazole 40 Mg Tab PO 40 mg BIDAC SRAVAN Administration Sodium Chloride 10 ml 12/13/21 23:13 12/18/21 09:54 Sodium Chloride 0.9% 10 Ml Flush Syringe IV 10 ml PRN PRN Administration LINE FLUSH Venlafaxine HCl 75 mg 12/17/21 10:00 12/18/21 09:53 Venlafaxine 75 Mg Tab PO 75 mg DAILY SRAVAN Administration Nutrition/Malnutrition Assess - Dietary Evaluation Nutrition/Malnutrition Findings: Nutrition Notes Start: 12/14/21 12:00 Freq: Status: Active Protocol: Document 12/15/21 09:48 MERARI (Rec: 12/15/21 10:10 MERARI [id number]) Nutrition Notes Initial or Follow up Brief Note Current Diagnosis Hypertension Other Pertinent Diagnosis PVD s/p L-FP Bypass, L-FP Bypass Occlusion, L-Groin Infection, L-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 Height 5 ft 2 in Weight 40.823 kg [place] Body Weight (kg) 50.00 BMI 16.5 Weight change and time frame No body weight change reported in 1 day. Weight Status Underweight Subjective/Other Information RD consult for dietary supplementation assessment. No reports available on Pt's PO intake of meals at the time , will assess at F/U. MD prescribed dietary supplements without RD consult , I will continue the prescription to compensate for possible poor or insufficient PO intake of meals, and to support wound healing processes, along with compensation for blood loss during LOS. Pt is on Room Air, O2 saturation @ 100%, according to Physical Assessment History notes. Procedure on 12/14: Repair of L-RESEARCH INSTRUMENTATION TECHNICIAN w/bovine pericardial patch, woundVac placement, well tolerated, according to Operative Report notes. Percent of energy/protein needs met: Prescribed Cardiac Diet provides for energy/protein needs (2,230 Kcal/85 g) during LOS; additionally, Dietary Supplements will compensate for possible poor or insufficient PO intake of meals with 1,050 Kcal and 60 g of protein. #2 Nutrition Diagnosis Increased nutrient needs ( specify in comment below) Comments: Protein to support wound healing and compensate for blood loss. Etiology L-Groin Infection, L-RESEARCH INSTRUMENTATION TECHNICIAN Injury, As Evidenced by Signs and Symptoms Procedure on 12/14: Repair of L-RESEARCH INSTRUMENTATION TECHNICIAN w/bovine pericardial patch, woundVac placement, well tolerated, according to Operative Report notes. #1 Nutrition Diagnosis Underweight Diagnosis Progress(for reassessment Continues documentation) Is patient on ventilator? No Is Patient Ambulatory and/or Out of Bed No REE-([facility]-confined to bed) 1134.852 Kcal/Kg value to use for calculation 30 Approximate Energy Requirements Using 1225 kcal/Kg Calculation Used for Recommendations Kcal/kg Additional Notes Protein: 1.5-2 g/Kg ABW; 62-84 g/day. Fluids: 1 ml/Kcal, or as per MD. Nutrition Intervention Change Diet Order: Continue Cardiac Diet. Add Supplement/Snack (indicate name/kcal Start 8 fl oz Ensure Enlive; /protein ) TID. Provides kCal: 1,050 Provides Protein (gm) 60 Goal #1 Compensate, through dietary supplementation, for possible poor or insufficient PO intake of meals during LOS. Goal #2 Support, through dietary supplementation, wound healing processes during LOS. Goal #3 Adjust the dietary intervention to better serve Pt's needs and clinical conditions during LOS. Follow-Up By: 12/22/21 Additional Comments Continue monitoring food tolerance, %PO intake of meals , dietary supplements, and BM. <ARNOLD WELCH - Last Filed: 12/19/21 07:21> Assessment and Plan Assessment and plan: I saw and evaluated the patient. I agree with the findings and the plan of care as documented in the Nurse Practitioner's~note, with the following corrections and additions. Hospitalist Physical - Constitutional Vitals: Temp Pulse Resp BP Pulse Ox 97.5 F L 75 9 L 146/78 96 12/19/21 03:36 12/19/21 06:00 12/19/21 06:00 12/19/21 06:00 12/19/21 06:00 Results - Labs CBC & Chem 7: 12/19/21 04:29 12/19/21 04:29 Labs: Laboratory Last Values WBC 6.8 K/mm3 (4.5-11.0) 12/18/21 Unknown RBC 3.15 M/mm3 (3.65-5.03) L 12/18/21 Unknown Hgb 9.3 gm/dl (10.1-14.3) L 12/19/21 04:29 Hct 27.8 % (30.3-42.9) L 12/19/21 04:29 MCV 89 fl (79-97) 12/18/21 Unknown MCH 30 pg (28-32) 12/18/21 Unknown MCHC 34 % (30-34) 12/18/21 Unknown RDW 16.5 % (13.2-15.2) H 12/18/21 Unknown Plt Count 337 K/mm3 (140-440) 12/19/21 04:29 Lymph % (Auto) 15.4 % (13.4-35.0) 12/17/21 05:00 [place] % (Auto) 8.9 % (0.0-7.3) H 12/17/21 05:00 Eos % (Auto) 1.7 % (0.0-4.3) 12/17/21 05:00 Baso % (Auto) 1.1 % (0.0-1.8) 12/17/21 05:00 Lymph # (Auto) 1.3 K/mm3 (1.2-5.4) 12/17/21 05:00 [place] # (Auto) 0.7 K/mm3 (0.0-0.8) 12/17/21 05:00 Eos # (Auto) 0.1 K/mm3 (0.0-0.4) 12/17/21 05:00 Baso # (Auto) 0.1 K/mm3 (0.0-0.1) 12/17/21 05:00 Seg Neutrophils % 72.9 % (40.0-70.0) H 12/17/21 05:00 Seg Neutrophils # 6.0 K/mm3 (1.8-7.7) 12/17/21 05:00 PT 18.0 Sec. (12.2-14.9) H 12/14/21 13:40 INR 1.32 (0.87-1.13) H 12/14/21 13:40 APTT 20.4 Sec. (24.2-36.6) L 12/14/21 13:40 Heparin Anti-Xa Level 0.66 U.I./ml (0.3-0.7) 12/14/21 22:43 Sodium 139 mmol/L (137-145) 12/19/21 04:29 Potassium 3.6 mmol/L (3.6-5.0) 12/19/21 04:29 Chloride 104.5 mmol/L (98-107) 12/19/21 04:29 Carbon Dioxide 27 mmol/L (22-30) 12/19/21 04:29 Anion Gap 11 mmol/L 12/19/21 04:29 BUN 7 mg/dL (7-17) 12/19/21 04:29 Creatinine 0.5 mg/dL (0.6-1.2) L 12/19/21 04:29 Estimated GFR > 60 ml/min 12/19/21 04:29 BUN/Creatinine Ratio 14 % 12/19/21 04:29 Glucose 76 mg/dL (65-100) 12/19/21 04:29 Calcium 7.9 mg/dL (8.4-10.2) L 12/19/21 04:29 Phosphorus 3.30 mg/dL (2.5-4.5) 12/19/21 04:29 Magnesium 1.50 mg/dL (1.7-2.3) L 12/19/21 04:29 Total Bilirubin 0.30 mg/dL (0.1-1.2) 12/13/21 18:25 AST 13 units/L (5-40) 12/13/21 18:25 ALT < 5 units/L (7-56) L 12/13/21 18:25 Alkaline Phosphatase 118 units/L (35-129) 12/13/21 18:25 Total Protein 4.6 g/dL (6.3-8.2) L 12/13/21 18:25 Albumin 2.1 g/dL (3.9-5) L 12/13/21 18:25 Albumin/Globulin Ratio 0.8 % 12/13/21 18:25 Vancomycin Trough 9.8 ug/mL (5.0-20.0) 12/19/21 04:29 Blood Type O POSITIVE 12/13/21 20:59 Antibody Screen Negative 12/13/21 20:59 Crossmatch See Detail 12/13/21 20:59 Victor/IV: Voiding Method Diaper Active Medications - Current Medications Current Medications: Generic Name Dose Route Start Last Admin Trade Name Freq PRN Reason Stop Dose Admin Acetaminophen 650 mg 12/13/21 23:13 Acetaminophen 325 Mg Tab PO Q4H PRN Pain MILD(1-3)/Fever >100.5/GONZALEZ Albuterol 2.5 mg 12/13/21 23:13 Albuterol 2.5 Mg/3 Ml Nebu IH Q3HRT PRN Shortness Of Breath Amlodipine Besylate 2.5 mg 12/17/21 10:00 12/18/21 09:53 Amlodipine 5 Mg Tab PO 2.5 mg QDAY SRAVAN Administration Apixaban 2.5 mg 12/16/21 22:00 12/18/21 21:34 Apixaban 2.5 Mg Tab PO 2.5 mg Q12HR SRAVAN Administration Protocol Atorvastatin Calcium 40 mg 12/14/21 10:00 12/18/21 09:52 Atorvastatin 40 Mg Tab PO 40 mg DAILY SRAVAN Administration Cilostazol 50 mg 12/14/21 10:00 12/18/21 21:34 Cilostazol 100 Mg Tab PO 50 mg BID SRAVAN Administration Clopidogrel Bisulfate 75 mg 12/14/21 10:00 12/18/21 09:53 Clopidogrel 75 Mg Tab PO 75 mg QDAY SRAVAN Administration Hydralazine HCl 10 mg 12/17/21 14:23 12/18/21 06:04 Hydralazine 20 Mg/1 Ml Inj IV 10 mg Q4H PRN Administration Hypertension Vancomycin HCl 1 gm in 250 mls @ 166.667 mls/hr 12/15/21 06:00 12/19/21 04:59 Vancomycin/Ns 1 Gm/250 Ml IV 167 mls/hr Q24H SRAVAN Administration Cefepime HCl 2 gm in 100 mls @ 200 mls/hr 12/18/21 22:00 12/18/21 21:34 Cefepime/Ns 2 Gm/100 Ml IV 200 mls/hr Q12HR SRAVAN Administration Protocol Morphine Sulfate 2 mg 12/13/21 23:13 12/17/21 11:20 Morphine 2 Mg/1 Ml Inj IV 2 mg Q4H PRN Administration Pain, Moderate (4-6) Morphine Sulfate 4 mg 12/13/21 23:13 12/19/21 04:58 Morphine 4 Mg/1 Ml Inj IV 4 mg Q4H PRN Administration Pain , Severe (7-10) Naloxone HCl 0.1 mg 12/14/21 15:02 Naloxone 0.4 Mg/1 Ml Inj IV Q2MIN PRN Res Rate </= 8 or 02 SAT < 92% Ondansetron HCl 4 mg 12/14/21 15:02 12/18/21 17:40 Ondansetron 4 Mg/2 Ml Inj IV 4 mg Q8H PRN Administration Nausea And Vomiting Pantoprazole Sodium 40 mg 12/14/21 16:30 12/18/21 17:30 Pantoprazole 40 Mg Tab PO 40 mg BIDAC SRAVAN Administration Sodium Chloride 10 ml 12/13/21 23:13 12/18/21 09:54 Sodium Chloride 0.9% 10 Ml Flush Syringe IV 10 ml PRN PRN Administration LINE FLUSH Venlafaxine HCl 75 mg 12/17/21 10:00 12/18/21 09:53 Venlafaxine 75 Mg Tab PO 75 mg DAILY SRAVAN Administration Nutrition/Malnutrition Assess - Dietary Evaluation Nutrition/Malnutrition Findings: Nutrition Notes Start: 12/14/21 12:00 Freq: Status: Active Protocol: Document 12/15/21 09:48 MERARI (Rec: 12/15/21 10:10 MERARI [id number]) Nutrition Notes Initial or Follow up Brief Note Current Diagnosis Hypertension Other Pertinent Diagnosis PVD s/p L-FP Bypass, L-FP Bypass Occlusion, L-Groin Infection, L-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 Height 5 ft 2 in Weight 40.823 kg [place] Body Weight (kg) 50.00 BMI 16.5 Weight change and time frame No body weight change reported in 1 day. Weight Status Underweight Subjective/Other Information RD consult for dietary supplementation assessment. No reports available on Pt's PO intake of meals at the time , will assess at F/U. prescribed dietary supplements without RD consult , I will continue the prescription to compensate for possible poor or insufficient PO intake of meals, and to support wound healing processes, along with compensation for blood loss during LOS. Pt is on Room Air, O2 saturation @ 100%, according to Physical Assessment History notes. Procedure on 12/14: Repair of L-RESEARCH INSTRUMENTATION TECHNICIAN w/bovine pericardial patch, woundVac placement, well tolerated, according to Operative Report notes. Percent of energy/protein needs met: Prescribed Cardiac Diet provides for energy/protein needs (2,230 Kcal/85 g) during LOS; additionally, Dietary Supplements will compensate for possible poor or insufficient PO intake of meals with 1,050 Kcal and 60 g of protein. #2 Nutrition Diagnosis Increased nutrient needs ( specify in comment below) Comments: Protein to support wound healing and compensate for blood loss. Etiology L-Groin Infection, L-RESEARCH INSTRUMENTATION TECHNICIAN Injury, As Evidenced by Signs and Symptoms Procedure on 12/14: Repair of L-RESEARCH INSTRUMENTATION TECHNICIAN w/bovine pericardial patch, woundVac placement, well tolerated, according to Operative Report notes. #1 Nutrition Diagnosis Underweight Diagnosis Progress(for reassessment Continues documentation) Is patient on ventilator? No Is Patient Ambulatory and/or Out of Bed No REE-([facility]-confined to bed) 1134.852 Kcal/Kg value to use for calculation 30 Approximate Energy Requirements Using 1225 kcal/Kg Calculation Used for Recommendations Kcal/kg Additional Notes Protein: 1.5-2 g/Kg ABW; 62-84 g/day. Fluids: 1 ml/Kcal, or as per MD. Nutrition Intervention Change Diet Order: Continue Cardiac Diet. Add Supplement/Snack (indicate name/kcal Start 8 fl oz Ensure Enlive; /protein ) TID. Provides kCal: 1,050 Provides Protein (gm) 60 Goal #1 Compensate, through dietary supplementation, for possible poor or insufficient PO intake of meals during LOS. Goal #2 Support, through dietary supplementation, wound healing processes during LOS. Goal #3 Adjust the dietary intervention to better serve Pt's needs and clinical conditions during LOS. Follow-Up By: 12/22/21 Additional Comments Continue monitoring food tolerance, %PO intake of meals , dietary supplements, and BM.
--- NOTE | 2021-12-18 12:16 | Progress Note ---
Assessment and Plan Cultures: Wound culture from previous surgery 12/04/2021: Klebsiella, E. 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 Infected graft was removed, having increased bleeding from the site. Leukocytosis resolved. Continue antibiotics. Recs: -Continue IV vancomycin and cefepime. Cefepime dose adjusted to 2 g every 12 hours due to Pseudomonas, body weight of 40.8 kg -Case management already consulted by Dr. Blake for vancomycin 1 g every 24 hours, cefepime 2 g every 12 hours until 01/05/2022 Marcelo Tomas MD, FACP, CR [facility] ([facility] O: [phone] F: [phone] C: [phone] Subjective Date of service: 12/18/21 Interval history: Afebrile. Lying in bed, in IMCU. Denies any complaints. Has wound VAC in place. Got PICC line inserted. Objective - Exam Narrative Exam: Physical Exam: Constitutional: Alert, cooperative. No acute distress Head, Ears, Nose: Normocephalic, atraumatic. External ears, nose normal Eyes: Conjunctivae/corneas clear. No icterus. No ptosis. Neck: Supple, no meningeal signs Cardiovascular: S1, S2 + Respiratory: Good air entry, clear to auscultation bilaterally GI: Soft, non-tender; bowel sounds normal. No peritoneal signs Musculoskeletal: Left groin wound VAC, left leg with dressing Skin: No rash or abscess Hem/Lymphatic: No palpable cervical or supraclavicular nodes. No lymphangitis Psych: Mood ok. Affect normal Neurological: Awake, alert, oriented. No gross abnormality - Constitutional Vitals: Vital Signs Temp Pulse Resp BP Pulse Ox 97.9 F 91 H 17 117/76 97 12/18/21 04:00 12/18/21 08:01 12/18/21 08:01 12/18/21 08:01 12/18/21 08:01 Temperature -Last 24 Hours Temperature 97.9 F Temperature 97.8 F Temperature 98 F Temperature 97.9 F - Labs CBC & Chem 7: 12/18/21 Unknown 12/18/21 04:00 Labs: Abnormal lab results 12/18/21 12/18/21 Range/Units 04:00 Unknown RBC 3.15 L (3.65-5.03) M/mm3 Hgb 9.4 L (10.1-14.3) gm/dl Hct 28.1 L (30.3-42.9) % RDW 16.5 H (13.2-15.2) % Potassium 3.5 L (3.6-5.0) mmol/L BUN 6 L (7-17) mg/dL Creatinine 0.5 L (0.6-1.2) mg/dL Calcium 7.7 L (8.4-10.2) mg/dL
--- NOTE | 2021-12-18 12:45 | Progress Note ---
Assessment and Plan I discussed with patient and patient's mother the need for placement in rehab facility on discharge. They appear to be agreeable. Case management is currently evaluating potential placement facilities. Patient awaiting wound VAC placement on the remainder of her leg wounds. Following identification of rehab facility, the patient will be able to be discharged to rehab once her wound vacs are in place. Subjective Date of service: 12/18/21 Principal diagnosis: Acute arterial bleeding Interval history: Patient with a history of acute arterial bleeding from her left groin who underwent surgical repair. Patient is resting comfortably with wound VAC in her left groin and wet-to-dry dressings along the mid thigh and calf. Sensation to her left foot is stable. Objective - Constitutional Vitals: Vital Signs - 12hr 12/18/21 12/18/21 12/18/21 01:00 01:31 02:01 Temperature Pulse Rate 76 78 77 Respiratory 8 L 9 L Rate Blood Pressure 135/70 173/84 O2 Sat by Pulse 97 98 Oximetry 12/18/21 12/18/21 12/18/21 03:00 03:09 04:00 Temperature 97.9 F Pulse Rate 74 76 77 Respiratory 9 L 9 L Rate Blood Pressure 154/79 160/82 O2 Sat by Pulse 97 97 Oximetry 12/18/21 12/18/21 12/18/21 05:00 06:00 07:00 Temperature Pulse Rate 76 75 81 Respiratory 11 L 8 L 12 Rate Blood Pressure 166/86 182/80 137/64 O2 Sat by Pulse 97 99 97 Oximetry 12/18/21 08:01 Temperature Pulse Rate 91 H Respiratory 17 Rate Blood Pressure 117/76 O2 Sat by Pulse 97 Oximetry General appearance: Present: disheveled - EENT Eyes: EOM intact ENT: hearing intact - Neck Neck: normal ROM - Respiratory Respiratory effort: normal Extremities: abnormal - Gastrointestinal General gastrointestinal: Present: deferred - Psychiatric Psychiatric: cooperative - Labs CBC & Chem 7: 12/18/21 Unknown 12/18/21 04:00 Labs: Abnormal lab results 12/18/21 12/18/21 Range/Units 04:00 Unknown RBC 3.15 L (3.65-5.03) M/mm3 Hgb 9.4 L (10.1-14.3) gm/dl Hct 28.1 L (30.3-42.9) % RDW 16.5 H (13.2-15.2) % Potassium 3.5 L (3.6-5.0) mmol/L BUN 6 L (7-17) mg/dL Creatinine 0.5 L (0.6-1.2) mg/dL Calcium 7.7 L (8.4-10.2) mg/dL Medications & Allergies - Medications Allergies/Adverse Reactions: Allergies No Known Allergies Allergy (Verified 12/13/21 17:26) Home Medications: Home Medications Medication Instructions Recorded Confirmed Last Taken Type Apixaban [Eliquis] 2.5 mg PO Q12HR #60 tab 09/01/21 12/14/21 12/13/21 Rx AtorvaSTATin [Lipitor] 40 mg PO DAILY 09/01/21 12/14/21 12/14/21 History Gabapentin 100 mg PO BID 09/01/21 12/14/21 12/13/21 History Pantoprazole [Protonix TAB] 40 mg PO QDAY #90 tablet 09/01/21 12/14/21 12/13/21 Rx carvediloL [Coreg] 25 mg PO BID 09/01/21 12/14/21 12/13/21 History traZODone [Desyrel] 100 mg PO QHS 09/01/21 12/14/21 12/13/21 History Venlafaxine [Effexor] 75 mg PO DAILY 11/02/21 12/14/21 12/13/21 History Aspirin EC [Halfprin EC] 81 mg PO QDAY #30 tablet 12/11/21 12/14/21 12/13/21 Rx Clopidogrel [Plavix] 75 mg PO QDAY #90 tablet 12/11/21 12/14/21 12/14/21 Rx Docusate Sodium [Colace CAP] 100 mg PO BID #60 capsule 12/11/21 12/14/21 12/13/21 Rx cilostazoL [Pletal] 50 mg PO BID #60 tab 12/11/21 12/14/21 12/13/21 Rx levoFLOXacin [Levaquin] 750 mg PO QDAY #7 tablet 12/11/21 12/14/21 12/13/21 Rx traMADoL [Ultram] 50 mg PO Q6HR PRN #20 tablet 12/11/21 12/14/21 12/13/21 Rx Active Medications: Generic Name Dose Route Start Last Admin Trade Name Freq PRN Reason Stop Dose Admin Acetaminophen 650 mg 12/13/21 23:13 Acetaminophen 325 Mg Tab PO Q4H PRN Pain MILD(1-3)/Fever >100.5/[id number] Albuterol 2.5 mg 12/13/21 23:13 Albuterol 2.5 Mg/3 Ml Nebu IH Q3HRT PRN Shortness Of Breath Amlodipine Besylate 2.5 mg 12/17/21 10:00 12/18/21 09:53 Amlodipine 5 Mg Tab PO 2.5 mg QDAY SRAVAN Administration Apixaban 2.5 mg 12/16/21 22:00 12/18/21 09:53 Apixaban 2.5 Mg Tab PO 2.5 mg Q12HR SRAVAN Administration Protocol Atorvastatin Calcium 40 mg 12/14/21 10:00 12/18/21 09:52 Atorvastatin 40 Mg Tab PO 40 mg DAILY SRAVAN Administration Cilostazol 50 mg 12/14/21 10:00 12/18/21 09:52 Cilostazol 100 Mg Tab PO 50 mg BID SRAVAN Administration Clopidogrel Bisulfate 75 mg 12/14/21 10:00 12/18/21 09:53 Clopidogrel 75 Mg Tab PO 75 mg QDAY SRAVAN Administration Hydralazine HCl 10 mg 12/17/21 14:23 12/18/21 06:04 Hydralazine 20 Mg/1 Ml Inj IV 10 mg Q4H PRN Administration Hypertension Vancomycin HCl 1 gm in 250 mls @ 166.667 mls/hr 12/15/21 06:00 12/18/21 05:30 Vancomycin/Ns 1 Gm/250 Ml IV 167 mls/hr Q24H SRAVAN Administration Cefepime HCl 2 gm in 100 mls @ 200 mls/hr 12/18/21 22:00 Cefepime/Ns 2 Gm/100 Ml IV Q12HR SRAVAN Protocol Morphine Sulfate 2 mg 12/13/21 23:13 12/17/21 11:20 Morphine 2 Mg/1 Ml Inj IV 2 mg Q4H PRN Administration Pain, Moderate (4-6) Morphine Sulfate 4 mg 12/13/21 23:13 12/18/21 09:49 Morphine 4 Mg/1 Ml Inj IV 4 mg Q4H PRN Administration Pain , Severe (7-10) Naloxone HCl 0.1 mg 12/14/21 15:02 Naloxone 0.4 Mg/1 Ml Inj IV Q2MIN PRN Res Rate </= 8 or 02 SAT < 92% Ondansetron HCl 4 mg 12/14/21 15:02 12/18/21 07:53 Ondansetron 4 Mg/2 Ml Inj IV 4 mg Q8H PRN Administration Nausea And Vomiting Pantoprazole Sodium 40 mg 12/14/21 16:30 12/18/21 09:52 Pantoprazole 40 Mg Tab PO 40 mg BIDAC SRAVAN Administration Sodium Chloride 10 ml 12/13/21 23:13 12/18/21 09:54 Sodium Chloride 0.9% 10 Ml Flush Syringe IV 10 ml PRN PRN Administration LINE FLUSH Venlafaxine HCl 75 mg 12/17/21 10:00 12/18/21 09:53 Venlafaxine 75 Mg Tab PO 75 mg DAILY SRAVAN Administration
[2021-12-18] MEDS: CEFEPIME/NS 2 GM/100 ML 2 GM/100 ML BAG IV SCH (21:34)
[2021-12-19] MEDS: MORPHINE 4 MG/1 ML INJ IV PRN ×2 (04:58→09:10)
[2021-12-19] MEDS: VANCOMYCIN/NS 1 GM/250 ML 1 GM/250 ML BAG IV SCH (04:59)
[2021-12-19 05:23] LABS: Hemoglobin 9.3 gm/dl (10.1-14.3)
[2021-12-19 05:24] LABS: Hematocrit 27.8 % (30.3-42.9)
[2021-12-19 05:48] LABS: Blood Urea Nitrogen 7 mg/dL (7-17); Calcium 7.9 mg/dL (8.4-10.2); Hemolysis Index 5
[2021-12-19 05:55] LABS: BUN/Creatinine Ratio 14
[2021-12-19] MEDS ORDERED: MAGNESIUM SULFATE 4 GM/100 ML BAG IV SCH (09:00)
[2021-12-19] MEDS: PANTOPRAZOLE 40 MG TAB PO SCH ×2 (09:10→16:39)
[2021-12-19] MEDS: amLODIPine 5 MG TAB PO SCH (09:19)
[2021-12-19] MEDS: GABAPENTIN 100 MG CAP PO SCH ×2 (09:19→21:43)
[2021-12-19] MEDS: CEFEPIME/NS 2 GM/100 ML 2 GM/100 ML BAG IV SCH ×2 (09:19→21:43)
[2021-12-19] MEDS: CLOPIDOGREL 75 MG TAB PO SCH (09:19)
[2021-12-19] MEDS: APIXABAN 2.5 MG TAB PO SCH ×2 (09:19→21:42)
[2021-12-19] MEDS: CILOSTAZOL 100 MG TAB PO SCH ×2 (09:23→21:43)
[2021-12-19] MEDS: VENLAFAXINE 75 MG TAB PO SCH (09:24)
--- NOTE | 2021-12-19 10:48 | Progress Note ---
<VINCENT KERNS - Last Filed: 12/19/21 18:03> Assessment and Plan Assessment and plan: This is a 56-year-old female with known history of CAD, HTN, HLD, and severe PVD s/p femoral-popliteal bypass surgery complicated with compartment syndrome required fasciotomy and right leg revascularization. 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 Patient was recently discharged home on 12/11 with [facility], patient presented back in the hospital on 12/13 with acute blood loss anemia secondary to hemorrhage/acute blood loss from home wound VAC. Hospital course to date 12/15: Currently in CCU, decreased urine output reported overnight. We will continue lactated Ringer's. Continue serial H&H. 12/16: patient noted to be anemic and given prbc. repeat post transfusion h/h is 9.5/27.4. 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 12/17: No acute events reported overnight. H&H stable. Transfer to [facility] per vascular request 12/18: Remains stable. Bleeding resolved and H&H remains stable. Awaiting additi onal wound VAC placement on LLE by wound care. Plan for possible discharge to a rehab facility, case management to arrange. 12/19: Wound VAC malfunctioning this am, saturated dressing noted at the left groin site. Pedal pulses appreciated with a doppler, H&H and VSS remain stable. Wound care contacted for Wound Vac dressing change. Continue PRN analgesia, gabapentin resumed for neuropathy pain. Vascular Surgery is also following. Assessment and Plan #Severe Peripheral Vascular Disease #H/o left femoral-popliteal bypass with fasciotomy and Right lower extremity Revascularization #Recent Occlusive Infection s/p excision of left common femoral to left below- knee popliteal artery bypass graft - Extensive PVD history with multiple procedures, was recently discharge home on 12/11 with wound VAC and [facility] - Readmitted 2 days later for LLE hemorrhage - Vascular Surgery Consulted, appreciate recommendations - 12/14 s/p exploration of left groin with open thrombectomy of left SFA, repair of left common femoral artery, coverage of left femoral artery with muscle flap and wound VAC placement - On pletal, plavix, and Eliquis. Gabapentin resumed - Wound Vac malfunctioning this am, saturated dressing noted at Left groin site. Wound Care to change wound VAC dressing - Wound culture from, last admit on 12/04 with Klebsiella, E. coli, Pseudomonas, MRSA, and Enterococcus faecalis - ID also consult, appreciate recommendation - Continue IV Abx- Cefepine and Vancomycin - ID recommendations also noted, plan for long-Term IV Abx- vancomycin 1 g every 24 hours and cefepime 2 g every 12 hours until 01/05/2022 - Case management also on consulted for discharge planning #Acute Blood Loss Anemia 2/ #Hemorrhage from LLE Wound VAC - Presented with low H&H, s/p 7units of PRBCs and 1FFP - CT abdomen/pelvis showed small amount of active hemorrhage in the left inguinal region and a large renal hematoma, excessive swelling throughout the entire left leg and 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 - Most likely secondary to above - s/p Left groin exploration and open thrombectomy as described above by Vascular Surgery - Wound Vac malfunctioning this am, saturated dressing noted at Left groin site. H&H remains stable - Wound Care to change wound VAC dressing - Continue to trend H&H - Transfuse for Hgb less than 7 - On pletal, plavix, and Eliquis #Hypertension #Hyperlipidemia - SBP in the 170-180 this am - Antihypertensive regimen adjusted - Continue blood pressure monitor per protocol - PRN Hydralazinen to maintain SBP less than 160 #Moderate Protein Calorie Malnutrition - Encourage PO intake - Continue Dietary supplementation - Nutrition consulted #H/o Nicotine Dependence - Patient reported that she has not smoked since November 17 - Smoking cessation education reiterated, patient encourage to remain quit and refrain from smoking #GI/DVT Prophylaxis - PPI- Protonix - On pletal, plavix, and Eliquis #Advance Care Planning - Disease education data, care plan, diagnoses, and prognosis were discussed with patient at the bedside. Patient is a FULL code. Patient acknowledged understanding and agreed with current care plan. - Plan for possible discharge to a rehab facility, case management to arrange. The high probability of a clinically significant, sudden or life threatening deterioration of the [multiple] system(s) required my full and direct attention, intervention and personal management. The aggregate critical care time was [60] minutes. This time is in addition to time spent performing reported procedures but includes the following: [x] Data Review and interpretation [x] Patient assessment and monitoring of vital signs [x] Documentation [x] Medication orders and management Disposition Plan: IMCU Total Time Spent with Patient (Minutes): 60 History Interval history: Patient seen and examined at the bedside. Remains stable on RA. Patient c/o of BLE extremity neuropathy pain. Wound VAC malfunctioning this am, saturated dressing noted at the groin site. Wound care contacted for Wound Vac dressing change. BLE pedal pulses appreciated using a doppler. VSS. Otherwise RUTH overnight. Hospitalist Physical - Constitutional Vitals: Temp Pulse Resp BP Pulse Ox 97.0 F L 87 15 182/71 98 12/19/21 08:00 12/19/21 09:19 12/19/21 09:00 12/19/21 09:19 12/19/21 09:00 General appearance: Present: no acute distress, cachectic - EENT Eyes: Present: PERRL ENT: hearing intact - Neck Neck: Present: normal ROM - Respiratory Respiratory effort: normal Respiratory: bilateral: diminished - Cardiovascular Rhythm: regular Heart Sounds: Present: S1 & S2 - Extremities Extremities: no ischemia, pulses intact, pulses symmetrical Extremity abnormal: edema - Peripheral Assessment Left Lower Extremity Edema Type: Pitting Edema Degree: 2+ Capillary Refill: < 3 seconds Skin Temperature: Warm Peripheral Pulses: within normal limits - Abdominal General gastrointestinal: soft, non-distended, normal bowel sounds - Integumentary Integumentary: Present: warm, dry - Psychiatric Psychiatric: appropriate mood/affect, cooperative - Neurologic Neurologic: CNII-XII intact, moves all extremities - Allied Health Allied health notes reviewed: nursing, case management Results - Labs CBC & Chem 7: 12/19/21 04:29 12/19/21 04:29 Labs: Laboratory Last Values WBC 6.8 K/mm3 (4.5-11.0) 12/18/21 Unknown RBC 3.15 M/mm3 (3.65-5.03) L 12/18/21 Unknown Hgb 9.3 gm/dl (10.1-14.3) L 12/19/21 04:29 Hct 27.8 % (30.3-42.9) L 12/19/21 04:29 MCV 89 fl (79-97) 12/18/21 Unknown MCH 30 pg (28-32) 12/18/21 Unknown MCHC 34 % (30-34) 12/18/21 Unknown RDW 16.5 % (13.2-15.2) H 12/18/21 Unknown Plt Count 337 K/mm3 (140-440) 12/19/21 04:29 Lymph % (Auto) 15.4 % (13.4-35.0) 12/17/21 05:00 Izard % (Auto) 8.9 % (0.0-7.3) H 12/17/21 05:00 Eos % (Auto) 1.7 % (0.0-4.3) 12/17/21 05:00 Baso % (Auto) 1.1 % (0.0-1.8) 12/17/21 05:00 Lymph # (Auto) 1.3 K/mm3 (1.2-5.4) 12/17/21 05:00 Izard # (Auto) 0.7 K/mm3 (0.0-0.8) 12/17/21 05:00 Eos # (Auto) 0.1 K/mm3 (0.0-0.4) 12/17/21 05:00 Baso # (Auto) 0.1 K/mm3 (0.0-0.1) 12/17/21 05:00 Seg Neutrophils % 72.9 % (40.0-70.0) H 12/17/21 05:00 Seg Neutrophils # 6.0 K/mm3 (1.8-7.7) 12/17/21 05:00 PT 18.0 Sec. (12.2-14.9) H 12/14/21 13:40 INR 1.32 (0.87-1.13) H 12/14/21 13:40 APTT 20.4 Sec. (24.2-36.6) L 12/14/21 13:40 Heparin Anti-Xa Level 0.66 U.I./ml (0.3-0.7) 12/14/21 22:43 Sodium 139 mmol/L (137-145) 12/19/21 04:29 Potassium 3.6 mmol/L (3.6-5.0) 12/19/21 04:29 Chloride 104.5 mmol/L (98-107) 12/19/21 04:29 Carbon Dioxide 27 mmol/L (22-30) 12/19/21 04:29 Anion Gap 11 mmol/L 12/19/21 04:29 BUN 7 mg/dL (7-17) 12/19/21 04:29 Creatinine 0.5 mg/dL (0.6-1.2) L 12/19/21 04:29 Estimated GFR > 60 ml/min 12/19/21 04:29 BUN/Creatinine Ratio 14 % 12/19/21 04:29 Glucose 76 mg/dL (65-100) 12/19/21 04:29 Calcium 7.9 mg/dL (8.4-10.2) L 12/19/21 04:29 Phosphorus 3.30 mg/dL (2.5-4.5) 12/19/21 04:29 Magnesium 1.50 mg/dL (1.7-2.3) L 12/19/21 04:29 Total Bilirubin 0.30 mg/dL (0.1-1.2) 12/13/21 18:25 AST 13 units/L (5-40) 12/13/21 18:25 ALT < 5 units/L (7-56) L 12/13/21 18:25 Alkaline Phosphatase 118 units/L (35-129) 12/13/21 18:25 Total Protein 4.6 g/dL (6.3-8.2) L 12/13/21 18:25 Albumin 2.1 g/dL (3.9-5) L 12/13/21 18:25 Albumin/Globulin Ratio 0.8 % 12/13/21 18:25 Vancomycin Trough 9.8 ug/mL (5.0-20.0) 12/19/21 04:29 Blood Type O POSITIVE 12/13/21 20:59 Antibody Screen Negative 12/13/21 20:59 Crossmatch See Detail 12/13/21 20:59 Victor/IV: Voiding Method Diaper Active Medications - Current Medications Current Medications: Generic Name Dose Route Start Last Admin Trade Name Freq PRN Reason Stop Dose Admin Acetaminophen 650 mg 12/13/21 23:13 Acetaminophen 325 Mg Tab PO Q4H PRN Pain MILD(1-3)/Fever >100.5/GONZALEZ Albuterol 2.5 mg 12/13/21 23:13 Albuterol 2.5 Mg/3 Ml Nebu IH Q3HRT PRN Shortness Of Breath Amlodipine Besylate 5 mg 12/19/21 10:00 12/19/21 09:19 Amlodipine 5 Mg Tab PO 5 mg QDAY SRAVAN Administration Apixaban 2.5 mg 12/16/21 22:00 12/19/21 09:19 Apixaban 2.5 Mg Tab PO 2.5 mg Q12HR SRAVAN Administration Protocol Atorvastatin Calcium 40 mg 12/14/21 10:00 12/19/21 09:19 Atorvastatin 40 Mg Tab PO 40 mg DAILY SRAVAN Administration Cilostazol 50 mg 12/14/21 10:00 12/19/21 09:23 Cilostazol 100 Mg Tab PO 50 mg BID SRAVAN Administration Clopidogrel Bisulfate 75 mg 12/14/21 10:00 12/19/21 09:19 Clopidogrel 75 Mg Tab PO 75 mg QDAY SRAVAN Administration Gabapentin 100 mg 12/19/21 10:00 12/19/21 09:19 Gabapentin 100 Mg Cap PO 100 mg BID SRAVAN Administration Hydralazine HCl 10 mg 12/17/21 14:23 12/18/21 06:04 Hydralazine 20 Mg/1 Ml Inj IV 10 mg Q4H PRN Administration Hypertension Vancomycin HCl 1 gm in 250 mls @ 166.667 mls/hr 12/15/21 06:00 12/19/21 04:59 Vancomycin/Ns 1 Gm/250 Ml IV 167 mls/hr Q24H SRAVAN Administration Cefepime HCl 2 gm in 100 mls @ 200 mls/hr 12/18/21 22:00 12/19/21 09:19 Cefepime/Ns 2 Gm/100 Ml IV 200 mls/hr Q12HR SRAVAN Administration Protocol Magnesium Sulfate 4 gm in 100 mls @ 25 mls/hr 12/19/21 09:00 12/19/21 09:10 Magnesium Sulfate 4gm/100ml IV 12/19/21 13:00 25 mls/hr ONCE@0900 SRAVAN Administration Morphine Sulfate 2 mg 12/13/21 23:13 12/17/21 11:20 Morphine 2 Mg/1 Ml Inj IV 2 mg Q4H PRN Administration Pain, Moderate (4-6) Morphine Sulfate 4 mg 12/13/21 23:13 12/19/21 09:10 Morphine 4 Mg/1 Ml Inj IV 4 mg Q4H PRN Administration Pain , Severe (7-10) Naloxone HCl 0.1 mg 12/14/21 15:02 Naloxone 0.4 Mg/1 Ml Inj IV Q2MIN PRN Res Rate </= 8 or 02 SAT < 92% Ondansetron HCl 4 mg 12/14/21 15:02 12/18/21 17:40 Ondansetron 4 Mg/2 Ml Inj IV 4 mg Q8H PRN Administration Nausea And Vomiting Pantoprazole Sodium 40 mg 12/14/21 16:30 12/19/21 09:10 Pantoprazole 40 Mg Tab PO 40 mg BIDAC SRAVAN Administration Sodium Chloride 10 ml 12/13/21 23:13 12/18/21 09:54 Sodium Chloride 0.9% 10 Ml Flush Syringe IV 10 ml PRN PRN Administration LINE FLUSH Trazodone HCl 50 mg 12/19/21 22:00 Trazodone 50 Mg Tab PO QHS SRAVAN Venlafaxine HCl 75 mg 12/17/21 10:00 12/19/21 09:24 Venlafaxine 75 Mg Tab PO 75 mg DAILY SRAVAN Administration Nutrition/Malnutrition Assess - Dietary Evaluation Nutrition/Malnutrition Findings: Nutrition Notes Start: 12/14/21 12:00 Freq: Status: Active Protocol: Document 12/15/21 09:48 MERARI (Rec: 12/15/21 10:10 MERRAI [id number]) Nutrition Notes Initial or Follow up Brief Note Current Diagnosis Hypertension Other Pertinent Diagnosis PVD s/p L-FP Bypass, L-FP Bypass Occlusion, L-Groin Infection, L-VEGETABLE PACKER Injury Current Diet Cardiac Diet (since 12/13), D Suppl (since 12/15). Height 5 ft 2 in Weight 40.823 kg [place] Body Weight (kg) 50.00 BMI 16.5 Weight change and time frame No body weight change reported in 1 day. Weight Status Underweight Subjective/Other Information RD consult for dietary supplementation assessment. No reports available on Pt's PO intake of meals at the time , will assess at F/U. prescribed dietary supplements without RD consult , I will continue the prescription to compensate for possible poor or insufficient PO intake of meals, and to support wound healing processes, along with compensation for blood loss during LOS. Pt is on Room Air, O2 saturation @ 100%, according to Physical Assessment History notes. Procedure on 12/14: Repair of L-VEGETABLE PACKER w/bovine pericardial patch, woundVac placement, well tolerated, according to Operative Report notes. Percent of energy/protein needs met: Prescribed Cardiac Diet provides for energy/protein needs (2,230 Kcal/85 g) during LOS; additionally, Dietary Supplements will compensate for possible poor or insufficient PO intake of meals with 1,050 Kcal and 60 g of protein. #2 Nutrition Diagnosis Increased nutrient needs ( specify in comment below) Comments: Protein to support wound healing and compensate for blood loss. Etiology L-Groin Infection, L-VEGETABLE PACKER Injury, As Evidenced by Signs and Symptoms Procedure on 12/14: Repair of L-VEGETABLE PACKER w/bovine pericardial patch, woundVac placement, well tolerated, according to Operative Report notes. #1 Nutrition Diagnosis Underweight Diagnosis Progress(for reassessment Continues documentation) Is patient on ventilator? No Is Patient Ambulatory and/or Out of Bed No REE-([place]-confined to bed) 1134.852 Kcal/Kg value to use for calculation 30 Approximate Energy Requirements Using 1225 kcal/Kg Calculation Used for Recommendations Kcal/kg Additional Notes Protein: 1.5-2 g/Kg ABW; 62-84 g/day. Fluids: 1 ml/Kcal, or as per MD. Nutrition Intervention Change Diet Order: Continue Cardiac Diet. Add Supplement/Snack (indicate name/kcal Start 8 fl oz Ensure Enlive; /protein ) TID. Provides kCal: 1,050 Provides Protein (gm) 60 Goal #1 Compensate, through dietary supplementation, for possible poor or insufficient PO intake of meals during LOS. Goal #2 Support, through dietary supplementation, wound healing processes during LOS. Goal #3 Adjust the dietary intervention to better serve Pt's needs and clinical conditions during LOS. Follow-Up By: 12/22/21 Additional Comments Continue monitoring food tolerance, %PO intake of meals , dietary supplements, and BM. <ARNOLD WELCH E - Last Filed: 12/20/21 07:13> Assessment and Plan Assessment and plan: I saw and evaluated the patient. I agree with the findings and the plan of care as documented in the Nurse Practitioner's~note, with the following corrections and additions. Complication with bleeding from the site notified to the vascular surgeon Hospitalist Physical - Constitutional Vitals: Temp Pulse Resp BP Pulse Ox 97.7 F 112 H 17 109/61 98 12/20/21 04:00 12/20/21 06:15 12/20/21 06:15 12/20/21 06:15 12/20/21 06:15 Results - Labs CBC & Chem 7: 12/20/21 04:12 12/20/21 04:12 Labs: Laboratory Last Values WBC 15.6 K/mm3 (4.5-11.0) H 12/20/21 04:12 RBC 3.29 M/mm3 (3.65-5.03) L 12/20/21 04:12 Hgb 9.4 gm/dl (10.1-14.3) L 12/20/21 04:12 Hct 27.5 % (30.3-42.9) L 12/20/21 04:12 MCV 84 fl (79-97) 12/20/21 04:12 MCH 29 pg (28-32) 12/20/21 04:12 MCHC 34 % (30-34) 12/20/21 04:12 RDW 19.5 % (13.2-15.2) H 12/20/21 04:12 Plt Count 182 K/mm3 (140-440) 12/20/21 04:12 Lymph % (Auto) 15.4 % (13.4-35.0) 12/17/21 05:00 Izard % (Auto) 8.9 % (0.0-7.3) H 12/17/21 05:00 Eos % (Auto) 1.7 % (0.0-4.3) 12/17/21 05:00 Baso % (Auto) 1.1 % (0.0-1.8) 12/17/21 05:00 Lymph # (Auto) 1.3 K/mm3 (1.2-5.4) 12/17/21 05:00 Izard # (Auto) 0.7 K/mm3 (0.0-0.8) 12/17/21 05:00 Eos # (Auto) 0.1 K/mm3 (0.0-0.4) 12/17/21 05:00 Baso # (Auto) 0.1 K/mm3 (0.0-0.1) 12/17/21 05:00 Seg Neutrophils % 72.9 % (40.0-70.0) H 12/17/21 05:00 Seg Neutrophils # 6.0 K/mm3 (1.8-7.7) 12/17/21 05:00 PT 15.5 Sec. (12.2-14.9) H 12/19/21 12:50 INR 1.08 (0.87-1.13) 12/19/21 12:50 APTT 32.1 Sec. (24.2-36.6) 12/19/21 12:50 Fibrinogen 399 mg/dl (211-480) 12/19/21 12:50 Heparin Anti-Xa Level 0.66 U.I./ml (0.3-0.7) 12/14/21 22:43 Sodium 135 mmol/L (137-145) L 12/20/21 04:12 Potassium 3.9 mmol/L (3.6-5.0) 12/20/21 04:12 Chloride 104.7 mmol/L (98-107) 12/20/21 04:12 Carbon Dioxide 21 mmol/L (22-30) L 12/20/21 04:12 Anion Gap 13 mmol/L 12/20/21 04:12 BUN 13 mg/dL (7-17) 12/20/21 04:12 Creatinine 0.6 mg/dL (0.6-1.2) 12/20/21 04:12 Estimated GFR > 60 ml/min 12/20/21 04:12 BUN/Creatinine Ratio 22 % 12/20/21 04:12 Glucose 109 mg/dL (65-100) H 12/20/21 04:12 Calcium 6.8 mg/dL (8.4-10.2) L 12/20/21 04:12 Phosphorus 3.80 mg/dL (2.5-4.5) 12/20/21 04:12 Magnesium 1.90 mg/dL (1.7-2.3) 12/20/21 04:12 Total Bilirubin 0.30 mg/dL (0.1-1.2) 12/13/21 18:25 AST 13 units/L (5-40) 12/13/21 18:25 ALT < 5 units/L (7-56) L 12/13/21 18:25 Alkaline Phosphatase 118 units/L (35-129) 12/13/21 18:25 Total Protein 4.6 g/dL (6.3-8.2) L 12/13/21 18:25 Albumin 2.1 g/dL (3.9-5) L 12/13/21 18:25 Albumin/Globulin Ratio 0.8 % 12/13/21 18:25 Vancomycin Trough 9.8 ug/mL (5.0-20.0) 12/19/21 04:29 Blood Type O POSITIVE 12/19/21 17:25 Antibody Screen Negative 12/19/21 17:25 Crossmatch See Detail 12/19/21 17:25 Victor/IV: Voiding Method Diaper Active Medications - Current Medications Current Medications: Generic Name Dose Route Start Last Admin Trade Name Freq PRN Reason Stop Dose Admin Acetaminophen 650 mg 12/13/21 23:13 Acetaminophen 325 Mg Tab PO Q4H PRN Pain MILD(1-3)/Fever >100.5/GONZALEZ Albuterol 2.5 mg 12/13/21 23:13 Albuterol 2.5 Mg/3 Ml Nebu IH Q3HRT PRN Shortness Of Breath Amlodipine Besylate 5 mg 12/19/21 10:00 12/19/21 09:19 Amlodipine 5 Mg Tab PO 5 mg QDAY SRAVAN Administration Apixaban 2.5 mg 12/16/21 22:00 12/19/21 21:42 Apixaban 2.5 Mg Tab PO 2.5 mg Q12HR SRAVAN Administration Protocol Atorvastatin Calcium 40 mg 12/14/21 10:00 12/19/21 09:19 Atorvastatin 40 Mg Tab PO 40 mg DAILY SRAVAN Administration Cilostazol 50 mg 12/14/21 10:00 12/19/21 21:43 Cilostazol 100 Mg Tab PO 50 mg BID SRAVAN Administration Clopidogrel Bisulfate 75 mg 12/14/21 10:00 12/19/21 09:19 Clopidogrel 75 Mg Tab PO 75 mg QDAY SRAVAN Administration Gabapentin 100 mg 12/19/21 10:00 12/19/21 21:43 Gabapentin 100 Mg Cap PO 100 mg BID SRAVAN Administration Hydralazine HCl 10 mg 12/17/21 14:23 12/18/21 06:04 Hydralazine 20 Mg/1 Ml Inj IV 10 mg Q4H PRN Administration Hypertension Vancomycin HCl 1 gm in 250 mls @ 166.667 mls/hr 12/15/21 06:00 12/20/21 05:00 Vancomycin/Ns 1 Gm/250 Ml IV 167 mls/hr Q24H SRAVAN Administration Cefepime HCl 2 gm in 100 mls @ 200 mls/hr 12/18/21 22:00 12/19/21 21:43 Cefepime/Ns 2 Gm/100 Ml IV 200 mls/hr Q12HR SRAVAN Administration Protocol Sodium Chloride 500 mls @ 0 mls/hr 12/19/21 17:11 Nacl 0.9% 500 Ml IV ONCE SRAVAN As Directed Sodium Chloride 500 mls @ 0 mls/hr 12/19/21 21:00 Nacl 0.9% 500 Ml IV ONCE SRAVAN As Directed Lactated Ringer's 1,000 mls @ 100 mls/hr 12/19/21 21:30 12/19/21 22:06 Lactated Ringers IV 100 mls/hr DIRECT SRAVAN Administration Morphine Sulfate 2 mg 12/13/21 23:13 12/20/21 05:01 Morphine 2 Mg/1 Ml Inj IV 2 mg Q4H PRN Administration Pain, Moderate (4-6) Morphine Sulfate 4 mg 12/13/21 23:13 12/19/21 09:10 Morphine 4 Mg/1 Ml Inj IV 4 mg Q4H PRN Administration Pain , Severe (7-10) Naloxone HCl 0.1 mg 12/14/21 15:02 Naloxone 0.4 Mg/1 Ml Inj IV Q2MIN PRN Res Rate </= 8 or 02 SAT < 92% Ondansetron HCl 4 mg 12/14/21 15:02 12/18/21 17:40 Ondansetron 4 Mg/2 Ml Inj IV 4 mg Q8H PRN Administration Nausea And Vomiting Pantoprazole Sodium 40 mg 12/14/21 16:30 12/19/21 16:39 Pantoprazole 40 Mg Tab PO 40 mg BIDAC SRAVAN Administration Sodium Chloride 10 ml 12/13/21 23:13 12/18/21 09:54 Sodium Chloride 0.9% 10 Ml Flush Syringe IV 10 ml PRN PRN Administration LINE FLUSH Trazodone HCl 50 mg 12/19/21 22:00 12/19/21 21:43 Trazodone 50 Mg Tab PO 50 mg QHS SRAVAN Administration Venlafaxine HCl 75 mg 12/17/21 10:00 12/19/21 09:24 Venlafaxine 75 Mg Tab PO 75 mg DAILY SRAVAN Administration Nutrition/Malnutrition Assess - Dietary Evaluation Nutrition/Malnutrition Findings: Nutrition Notes Start: 12/14/21 12:00 Freq: Status: Active Protocol: Document 12/15/21 09:48 MERARI (Rec: 12/15/21 10:10 MERARI [id number]) Nutrition Notes Initial or Follow up Brief Note Current Diagnosis Hypertension Other Pertinent Diagnosis PVD s/p L-FP Bypass, L-FP Bypass Occlusion, L-Groin Infection, L-VEGETABLE PACKER Injury Current Diet Cardiac Diet (since 12/13), D Suppl (since 12/15). Height 5 ft 2 in Weight 40.823 kg [place] Body Weight (kg) 50.00 BMI 16.5 Weight change and time frame No body weight change reported in 1 day. Weight Status Underweight Subjective/Other Information RD consult for dietary supplementation assessment. No reports available on Pt's PO intake of meals at the time , will assess at F/U. prescribed dietary supplements without RD consult , I will continue the prescription to compensate for possible poor or insufficient PO intake of meals, and to support wound healing processes, along with compensation for blood loss during LOS. Pt is on Room Air, O2 saturation @ 100%, according to Physical Assessment History notes. Procedure on 12/14: Repair of L-VEGETABLE PACKER w/bovine pericardial patch, woundVac placement, well tolerated, according to Operative Report notes. Percent of energy/protein needs met: Prescribed Cardiac Diet provides for energy/protein needs (2,230 Kcal/85 g) during LOS; additionally, Dietary Supplements will compensate for possible poor or insufficient PO intake of meals with 1,050 Kcal and 60 g of protein. #2 Nutrition Diagnosis Increased nutrient needs ( specify in comment below) Comments: Protein to support wound healing and compensate for blood loss. Etiology L-Groin Infection, L-VEGETABLE PACKER Injury, As Evidenced by Signs and Symptoms Procedure on 12/14: Repair of L-VEGETABLE PACKER w/bovine pericardial patch, woundVac placement, well tolerated, according to Operative Report notes. #1 Nutrition Diagnosis Underweight Diagnosis Progress(for reassessment Continues documentation) Is patient on ventilator? No Is Patient Ambulatory and/or Out of Bed No REE-([place]-confined to bed) 1134.852 Kcal/Kg value to use for calculation 30 Approximate Energy Requirements Using 1225 kcal/Kg Calculation Used for Recommendations Kcal/kg Additional Notes Protein: 1.5-2 g/Kg ABW; 62-84 g/day. Fluids: 1 ml/Kcal, or as per MD. Nutrition Intervention Change Diet Order: Continue Cardiac Diet. Add Supplement/Snack (indicate name/kcal Start 8 fl oz Ensure Enlive; /protein ) TID. Provides kCal: 1,050 Provides Protein (gm) 60 Goal #1 Compensate, through dietary supplementation, for possible poor or insufficient PO intake of meals during LOS. Goal #2 Support, through dietary supplementation, wound healing processes during LOS. Goal #3 Adjust the dietary intervention to better serve Pt's needs and clinical conditions during LOS. Follow-Up By: 12/22/21 Additional Comments Continue monitoring food tolerance, %PO intake of meals , dietary supplements, and BM.
[2021-12-19] MEDS ORDERED: SODIUM CHLORIDE 0.9% 1000 ML 1,000 ML ONE (12:52)
[2021-12-19] MEDS ORDERED: SODIUM CHLORIDE 0.9% 500 ML 500 ML IV ONE (13:00)
--- NOTE | 2021-12-19 14:01 | Progress Note ---
Assessment and Plan Patient with Left groin wound vac malfunction. Vac was removed and Extracellular matrix still intact. Hematoma noted and removed. Used suction to remove hematoma and serosanguinous drainage noted but no active bleeding. Wound vac was reapplied with an adequate seal. Patient with hypotension and currently receiving 500 mL bolus of 0.9% NS. Ordered another 500 mL. H/H is pending. May require transfusion of PRBC. Will continue to monitor. Subjective Date of service: 12/19/21 Principal diagnosis: Acute arterial bleeding Interval history: Patient with Left groin wound vac malfunction. Reports of bleeding from the left groin after wound vac malfucntion. Objective - Constitutional Vitals: Vital Signs - 12hr 12/19/21 12/19/21 12/19/21 02:00 03:00 03:36 Temperature 97.5 F L Pulse Rate 82 82 84 Respiratory 10 L 8 L Rate Blood Pressure 142/78 153/77 O2 Sat by Pulse 97 96 Oximetry 12/19/21 12/19/21 12/19/21 03:37 04:00 05:00 Temperature Pulse Rate 80 78 Respiratory 11 L 13 Rate Blood Pressure 144/79 152/80 O2 Sat by Pulse 98 96 97 Oximetry 12/19/21 12/19/21 12/19/21 06:00 07:00 08:00 Temperature 97.0 F L Pulse Rate 75 77 77 Respiratory 9 L 10 L 9 L Rate Blood Pressure 146/78 175/81 162/75 O2 Sat by Pulse 96 97 98 Oximetry 12/19/21 12/19/21 12/19/21 09:00 09:19 10:00 Temperature Pulse Rate 84 87 83 Respiratory 15 12 Rate Blood Pressure 182/71 182/71 115/59 O2 Sat by Pulse 98 98 Oximetry 12/19/21 11:00 Temperature Pulse Rate 92 H Respiratory 13 Rate Blood Pressure 110/68 O2 Sat by Pulse 100 Oximetry General appearance: Present: no acute distress - Respiratory Respiratory effort: normal - Cardiovascular Heart rate: 104 Rhythm: other (Tachycardia) Extremities: abnormal (Left groin with Wound Vac without a seal. Hematoma in the left groin and bloody drainage on the bed) - Labs CBC & Chem 7: 12/19/21 04:29 12/19/21 04:29 Labs: Abnormal lab results 12/19/21 12/19/21 Range/Units 04:29 04:29 Hgb 9.3 L (10.1-14.3) gm/dl Hct 27.8 L (30.3-42.9) % Creatinine 0.5 L (0.6-1.2) mg/dL Calcium 7.9 L (8.4-10.2) mg/dL Magnesium 1.50 L (1.7-2.3) mg/dL Medications & Allergies - Medications Allergies/Adverse Reactions: Allergies No Known Allergies Allergy (Verified 12/13/21 17:26) Home Medications: Home Medications Medication Instructions Recorded Confirmed Last Taken Type Apixaban [Eliquis] 2.5 mg PO Q12HR #60 tab 09/01/21 12/14/21 12/13/21 Rx AtorvaSTATin [Lipitor] 40 mg PO DAILY 09/01/21 12/14/21 12/14/21 History Gabapentin 100 mg PO BID 09/01/21 12/14/21 12/13/21 History Pantoprazole [Protonix TAB] 40 mg PO QDAY #90 tablet 09/01/21 12/14/21 12/13/21 Rx carvediloL [Coreg] 25 mg PO BID 09/01/21 12/14/21 12/13/21 History traZODone [Desyrel] 100 mg PO QHS 09/01/21 12/14/21 12/13/21 History Venlafaxine [Effexor] 75 mg PO DAILY 11/02/21 12/14/21 12/13/21 History Aspirin EC [Halfprin EC] 81 mg PO QDAY #30 tablet 12/11/21 12/14/21 12/13/21 Rx Clopidogrel [Plavix] 75 mg PO QDAY #90 tablet 12/11/21 12/14/21 12/14/21 Rx Docusate Sodium [Colace CAP] 100 mg PO BID #60 capsule 12/11/21 12/14/21 12/13/21 Rx cilostazoL [Pletal] 50 mg PO BID #60 tab 12/11/21 12/14/21 12/13/21 Rx levoFLOXacin [Levaquin] 750 mg PO QDAY #7 tablet 12/11/21 12/14/21 12/13/21 Rx traMADoL [Ultram] 50 mg PO Q6HR PRN #20 tablet 12/11/21 12/14/21 12/13/21 Rx Active Medications: Generic Name Dose Route Start Last Admin Trade Name Freq PRN Reason Stop Dose Admin Acetaminophen 650 mg 12/13/21 23:13 Acetaminophen 325 Mg Tab PO Q4H PRN Pain MILD(1-3)/Fever >100.5/GONZALEZ Albuterol 2.5 mg 12/13/21 23:13 Albuterol 2.5 Mg/3 Ml Nebu IH Q3HRT PRN Shortness Of Breath Amlodipine Besylate 5 mg 12/19/21 10:00 12/19/21 09:19 Amlodipine 5 Mg Tab PO 5 mg QDAY SRAVAN Administration Apixaban 2.5 mg 12/16/21 22:00 12/19/21 09:19 Apixaban 2.5 Mg Tab PO 2.5 mg Q12HR SRAVAN Administration Protocol Atorvastatin Calcium 40 mg 12/14/21 10:00 12/19/21 09:19 Atorvastatin 40 Mg Tab PO 40 mg DAILY SRAVAN Administration Cilostazol 50 mg 12/14/21 10:00 12/19/21 09:23 Cilostazol 100 Mg Tab PO 50 mg BID SRAVAN Administration Clopidogrel Bisulfate 75 mg 12/14/21 10:00 12/19/21 09:19 Clopidogrel 75 Mg Tab PO 75 mg QDAY SRAVAN Administration Gabapentin 100 mg 12/19/21 10:00 12/19/21 09:19 Gabapentin 100 Mg Cap PO 100 mg BID SRAVAN Administration Hydralazine HCl 10 mg 12/17/21 14:23 12/18/21 06:04 Hydralazine 20 Mg/1 Ml Inj IV 10 mg Q4H PRN Administration Hypertension Vancomycin HCl 1 gm in 250 mls @ 166.667 mls/hr 12/15/21 06:00 12/19/21 04:59 Vancomycin/Ns 1 Gm/250 Ml IV 167 mls/hr Q24H SRAVAN Administration Cefepime HCl 2 gm in 100 mls @ 200 mls/hr 12/18/21 22:00 12/19/21 09:19 Cefepime/Ns 2 Gm/100 Ml IV 200 mls/hr Q12HR SRAVAN Administration Protocol Morphine Sulfate 2 mg 12/13/21 23:13 12/17/21 11:20 Morphine 2 Mg/1 Ml Inj IV 2 mg Q4H PRN Administration Pain, Moderate (4-6) Morphine Sulfate 4 mg 12/13/21 23:13 12/19/21 09:10 Morphine 4 Mg/1 Ml Inj IV 4 mg Q4H PRN Administration Pain , Severe (7-10) Naloxone HCl 0.1 mg 12/14/21 15:02 Naloxone 0.4 Mg/1 Ml Inj IV Q2MIN PRN Res Rate </= 8 or 02 SAT < 92% Ondansetron HCl 4 mg 12/14/21 15:02 12/18/21 17:40 Ondansetron 4 Mg/2 Ml Inj IV 4 mg Q8H PRN Administration Nausea And Vomiting Pantoprazole Sodium 40 mg 12/14/21 16:30 12/19/21 09:10 Pantoprazole 40 Mg Tab PO 40 mg BIDAC SRAVAN Administration Sodium Chloride 10 ml 12/13/21 23:13 12/18/21 09:54 Sodium Chloride 0.9% 10 Ml Flush Syringe IV 10 ml PRN PRN Administration LINE FLUSH Trazodone HCl 50 mg 12/19/21 22:00 Trazodone 50 Mg Tab PO QHS SRAVAN Venlafaxine HCl 75 mg 12/17/21 10:00 12/19/21 09:24 Venlafaxine 75 Mg Tab PO 75 mg DAILY SRAVAN Administration
[2021-12-19 14:06] LABS: Hematocrit 23.8 % (30.3-42.9); Mean Corpuscular HGB Conc 34 % (30-34); Mean Corpuscular Volume 90 fl (79-97); Platelet Count 351 K/mm3 (140-440); Red Blood Count 2.64 M/mm3 (3.65-5.03); Red Cell Distribution Width 16.7 % (13.2-15.2)
[2021-12-19 14:17] LABS: INR 1.08 (0.87-1.13)
[2021-12-19 14:18] LABS: Partial Thromboplastin Time 32.1 Sec. (24.2-36.6)
--- NOTE | 2021-12-19 15:25 | Progress Note ---
Assessment and Plan Cultures: Wound culture from previous surgery 12/04/2021: Klebsiella, E. 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 Infected graft was removed, having increased bleeding from the site. Leukocytosis resolved. Continue antibiotics. Recs: -Continue IV vancomycin and cefepime. -Case management already consulted by Dr. Blake for vancomycin 1 g every 24 hours, cefepime 2 g every 12 hours until 01/05/2022 Marcelo Tomas MD, FACP, CR [facility] ([facility] O: [phone] F: [phone] C: [phone] Subjective Date of service: 12/19/21 Principal diagnosis: Acute arterial bleeding Interval history: Afebrile. Denies any complaints. Has wound VAC in place. Objective - Exam Narrative Exam: Physical Exam: Constitutional: Alert, cooperative. No acute distress Head, Ears, Nose: Normocephalic, atraumatic. External ears, nose normal Eyes: Conjunctivae/corneas clear. No icterus. No ptosis. Neck: Supple, no meningeal signs Cardiovascular: S1, S2 + Respiratory: Good air entry, clear to auscultation bilaterally GI: Soft, non-tender; bowel sounds normal. No peritoneal signs Musculoskeletal: Left groin wound VAC, left leg with dressing Skin: No rash or abscess Hem/Lymphatic: No palpable cervical or supraclavicular nodes. No lymphangitis Psych: Mood ok. Affect normal Neurological: Awake, alert, oriented. No gross abnormality - Constitutional Vitals: Vital Signs Temp Pulse Resp BP Pulse Ox 97.2 F L 94 H 11 L 73/44 100 12/19/21 12:00 12/19/21 13:00 12/19/21 13:00 12/19/21 13:00 12/19/21 13:00 Temperature -Last 24 Hours Temperature 97.2 F Temperature 97.0 F Temperature 97.5 F Temperature 97.5 F Temperature 97.5 F Temperature 97.4 F - Labs CBC & Chem 7: 12/19/21 Unknown 12/19/21 04:29 Labs: Abnormal lab results 12/19/21 12/19/21 12/19/21 Range/Units 04:29 04:29 Unknown RBC 2.64 L (3.65-5.03) M/mm3 Hgb 9.3 L 8.0 L (10.1-14.3) gm/dl Hct 27.8 L 23.8 L (30.3-42.9) % RDW 16.7 H (13.2-15.2) % Creatinine 0.5 L (0.6-1.2) mg/dL Calcium 7.9 L (8.4-10.2) mg/dL Magnesium 1.50 L (1.7-2.3) mg/dL
[2021-12-19] MEDS: MORPHINE 2 MG/1 ML INJ IV PRN (16:44)
[2021-12-19] MEDS ORDERED: SODIUM CHLORIDE 0.9% 500 ML 500 ML IV SCH ×2 (17:11→21:00)
--- NOTE | 2021-12-19 17:14 | Event Note ---
Date: 12/19/21 Alerted by nursing that patient is actively bleeding from Left groin site, patient is now hypotensive and complaining of sudden excruciating pain at the site. Upon assessment, sanguinous drainage and a hematoma lateral to the wound vac was appreciated. LLE is warm to touch, pedal and posterior tibial pulses noted with a doppler. Wound Vac also noted with continuous NPWT at 125mmhg. Of note, wound vac malfunctioned this am but dressing was changed/reapplied by vascular surgery this afternoon. Patient currently appears in distress complaining of severe pain at the site. BP is 81/60, ST on the monitor, HR in the 110-120s. S/p 1L of NS, recent labs noted- Hgb dropped from 9.3 to 8.0. Findings discussed with Vascular Surgery, Dr. Edge, he is coming up to assess patient. Additional IVF bolus administered and 1unit of PRBCs ordered, will continue to trend H&H.
[2021-12-19] MEDS ORDERED: NORepinephrine/NS 8 MG-250 ML 8 MG/250 ML INFUS..BTL IV ONE (19:59)
--- NOTE | 2021-12-19 20:02 | Operative Report ---
Operative Report Operative Report: Date of Procedure: 12/19/2021 Pre-operative Diagnosis: Left Groin Bleeding Post-operative Diagnosis: Same Procedure(s): 1. Ultrasound-Guided Access Left Anterior Tibial Artery 2. Diagnostic Left Lower Extremity Angiogram 3. Angioplasty and Stent of Left External Iliac Artery with 8 x 10 cm Viabahn Stent Graft and 7 x 80 Romel Balloon 4. Angioplasty and Stent of Left Common Femoral Artery with 8 x 10 cm Viabahn Stent Graft and 7 x 80 Romel Balloon 5. Angioplasty and Stent of Left Below-Knee Popliteal Artery with 5 x 30 Medtronic Resolute Ravi Drug-Eluting Stent, 6 x 5 cm Viabahn Stent Graft 6. Radiologic Supervision with Interpretation 7. Evacuation of Left Groin Hematoma and Replacement of Wound VAC Surgeon: Lauri Edge M.D. Health And Nutrition Specialist: Amanda Anesthesia: 2% Lidocaine EBL: Minimal Counts: Correct Complications: None Condition: Stable Specimen: None Indication: The patient is a 56-year-old female has had multiple operations on her left lower extremity who developed pain and swelling at the site of her left groin wound VAC. She had had bleeding from the area earlier today and given this the decision was made to bring her to the [facility] for an angiogram and possible intervention. She was given the risk, benefits, and alternative procedures and consented to the procedure. Angiographic Findings: The diagnostic left lower extremity angiogram revealed the common iliac was patent without significant flow-limiting stenosis. The hypogastric was patent without significant flow-limiting stenosis. There was approximately 75% stenosis of the proximal external iliac artery with thrombus versus a long dissection flap extending into the mid external iliac artery. There was approximately 60% stenosis of the common femoral artery and what appeared to be nonocclusive thrombus within the origin of the profunda artery. The SFA and above-knee popliteal artery were patent without significant flow-limiting stenosis. There is approximately 30% stenosis in a short segment of the proximal below-knee popliteal artery and 85 to 90% stenosis in a short segment of the mid below-knee popliteal artery. 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 The posterior tibial artery occluded shortly after its origin. The peroneal artery was patent throughout its course without significant flow-limiting stenosis. After intervention the external iliac artery was patent with approximately 20% residual stenosis within the proximal segment however the remainder of the artery was patent without flow-limiting stenosis or evidence of the dissection flap or thrombus. The common femoral artery was patent with approximately 20% residual stenosis. The popliteal artery was patent with less than 20% residual stenosis. Description of Procedure: The patient was brought to the [facility] and laid in supine position. After timeout was performed her left wrist and left foot were prepped and draped in normal sterile fashion. Ultrasound was used to identify the anterior tibial artery, just above the ankle, and confirm patency. Once patency was confirmed the overlying skin and soft tissue was anesthetized with lidocaine. A 21-gauge micropuncture needle was used with ultrasound guidance into the left anterior tibial artery, in retrograde fashion, and a 0.018 micropuncture wire was advanced into the artery. The needle was removed and a 4 Chinese glide slender sheath was placed by Seldinger technique. A radial cocktail was then administered to reduce spasm. I advanced a 0.018 V18 wire into the artery along with a Navicross catheter and performed an angiogram of the tibial vessels from the below-knee popliteal artery. I then advanced the catheter and wire into the common iliac artery and performed the left lower extremity angiogram with the previously described findings. I exchanged the 4 Chinese sheath for a 7 Chinese 11 cm sheath by Seldinger technique. I then remove the Navicross catheter leaving the V 18 wire in the vessel. I advanced an 8 x 10 cm Viabahn Stent Graft into the proximal external iliac artery and deployed it. I then removed the delivery catheter and advanced an 8 x 5 cm Viabahn Stent Graft into the common femoral artery and deployed it with approximately 2 cm of overlap into the previously placed stent graft. I removed the delivery catheter and postdilated the stent graft with a 7 x 80 Romel Balloon which resulted in approximately 20% residual stenosis within both arteries. I then exchanged my V 18 wire for 0.014 Choice PT Wire and advanced a 5 x 30 Medtronic Resolute Ravi Drug-Eluting Stent into the area of severe stenosis within the below-knee popliteal artery. I deployed the stent and upon removing the delivery balloon performed an angiogram that demonstrated significant amount of extravasation from the area. I quickly advanced a 6 x 5 cm Viabahn Stent Graft across the area and deployed it. I then postdilated the stent graft with the 7 x 80 Romel Balloon. This resulted in less than 20% residual stenosis within the popliteal artery and no further extravasation of contrast. In addition to those findings the arteriovenous fistula that had previously been noted no longer appeared to be patent. At that point I remove the wire followed by removing the 7 Chinese sheath and manual pressure was held to achieve hemostasis. Once hemostasis was achieved a sterile pressure dressing was applied to the entry site on the foot. I then removed the wound VAC and used a Yankauer suction to evacuate the hematoma from the left groin. The majority of the hematoma was lateral to the incision. Once I evacuated the hematoma I reapplied the wound VAC and was able to gain an adequate seal. The patient tolerated the procedure well. All sponge, needle, and instrument counts were correct. The patient was returned to the [facility] in critical but stable condition.
[2021-12-19] MEDS ORDERED: SODIUM CHLORIDE 0.9% 1000 ML 1,000 ML IV ONE (21:00)
[2021-12-19] MEDS: traZODone 50 MG TAB PO SCH (21:43)
[2021-12-19] MEDS: LACTATED RINGERS 1,000 ML IV SCH (22:06)
--- NOTE | 2021-12-20 00:22 | Event Note ---
Date: 12/20/21 Called secondary to patient with bleeding from the patient's calf incision. Upon arrival the patient is alert and vitals are stable with HR 80'ss and SBP 114. Patient received a total of 3 units PRBC and 1 unit of FFP. Nurse holding manual pressure upon arrival. Dressing removed and some fresh blood within the wound but no pulsatile bleeding. Packed the wound with a kerlix roll and rewrapped with a 6" lucy bandage. Left groin wound with wound vac intact. Minimal drainage but lateral aspect of the wound with mild erythema and some swelling. The area is soft. Likely seroma accumulation secondary to the space created by the previous hematoma. Applied a pressure dressing with a Kerlix Roll, ABD Pad, and elastoplast tape. Patient tolerated well.
[2021-12-20] MEDS: MORPHINE 2 MG/1 ML INJ IV PRN ×3 (00:42→11:51)
[2021-12-20 00:48] LABS: Hematocrit 30.2 % (30.3-42.9)
[2021-12-20 04:32] LABS: Hematocrit 27.5 % (30.3-42.9); Hemoglobin 9.4 gm/dl (10.1-14.3); Mean Corpuscular HGB Conc 34 % (30-34); Mean Corpuscular Volume 84 fl (79-97); Platelet Count 182 K/mm3 (140-440); Red Blood Count 3.29 M/mm3 (3.65-5.03); Red Cell Distribution Width 19.5 % (13.2-15.2)
[2021-12-20 04:44] LABS: Blood Urea Nitrogen 13 mg/dL (7-17); Calcium 6.8 mg/dL (8.4-10.2); Hemolysis Index 7
[2021-12-20 04:45] LABS: BUN/Creatinine Ratio 22
[2021-12-20] MEDS: VANCOMYCIN/NS 1 GM/250 ML 1 GM/250 ML BAG IV SCH (05:00)
[2021-12-20] MEDS: ONDANSETRON 4 MG/2 ML INJ IV PRN (08:03)
[2021-12-20] MEDS: PANTOPRAZOLE 40 MG TAB PO SCH ×2 (08:03→16:02)
[2021-12-20] MEDS: APIXABAN 2.5 MG TAB PO SCH ×2 (09:17→21:03)
[2021-12-20] MEDS: CEFEPIME/NS 2 GM/100 ML 2 GM/100 ML BAG IV SCH ×2 (09:17→21:03)
[2021-12-20] MEDS: GABAPENTIN 100 MG CAP PO SCH ×2 (09:18→21:04)
[2021-12-20] MEDS: CLOPIDOGREL 75 MG TAB PO SCH (09:18)
[2021-12-20] MEDS: VENLAFAXINE 75 MG TAB PO SCH (09:18)
[2021-12-20] MEDS: amLODIPine 5 MG TAB PO SCH (09:18)
[2021-12-20] MEDS: CILOSTAZOL 100 MG TAB PO SCH ×2 (09:19→21:04)
--- NOTE | 2021-12-20 09:23 | Progress Note ---
Assessment and Plan Cultures: Wound culture from previous surgery 12/04/2021: Klebsiella, E. 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 Infected graft was removed, having increased bleeding from the site. Leukocytosis resolved. Continue antibiotics. #Acute blood loss anemia Recs: -Leukocytosis is likely reactive. Continue IV vancomycin and cefepime -Case management orders in place for OPAT: vancomycin 1 g every 24 hours, cefepime 2 g every 12 hours until 01/05/2022 Marcelo Tomas MD, FACP, CR [facility] ([facility] O: [phone] F: [phone] C: [phone] Subjective Date of service: 12/20/21 Principal diagnosis: Acute arterial bleeding Interval history: Afebrile. Having issues with bleeding, was taken back to the OR yesterday. Left groin with wound VAC. Objective - Exam Narrative Exam: Physical Exam: Constitutional: Alert, cooperative. No acute distress Head, Ears, Nose: Normocephalic, atraumatic. External ears, nose normal Eyes: Conjunctivae/corneas clear. No icterus. No ptosis. Neck: Supple, no meningeal signs Cardiovascular: S1, S2 + Respiratory: Good air entry, clear to auscultation bilaterally GI: Soft, non-tender; bowel sounds normal. No peritoneal signs Musculoskeletal: Left groin wound VAC, left leg with compression dressing Skin: No rash or abscess Hem/Lymphatic: No palpable cervical or supraclavicular nodes. No lymphangitis Psych: Mood ok. Affect normal Neurological: Awake, alert, oriented. No gross abnormality - Constitutional Vitals: Vital Signs Temp Pulse Resp BP Pulse Ox 97.7 F 118 H 17 115/62 98 12/20/21 04:00 12/20/21 09:18 12/20/21 06:15 12/20/21 09:18 12/20/21 06:15 Temperature -Last 24 Hours Temperature 97.7 F Temperature 94.2 F Temperature 94 F Temperature 94 F Temperature 94.5 F Temperature 94.6 F Temperature 94.2 F Temperature 94 F Temperature 97.0 F Temperature 97.2 F - Labs CBC & Chem 7: 12/20/21 04:12 12/20/21 04:12 Labs: Abnormal lab results 12/13/21 12/19/21 12/19/21 Range/Units 20:59 12:50 17:25 WBC (4.5-11.0) K/mm3 RBC (3.65-5.03) M/mm3 Hgb (10.1-14.3) gm/dl Hct (30.3-42.9) % RDW (13.2-15.2) % PT 15.5 H (12.2-14.9) Sec. Sodium (137-145) mmol/L Carbon Dioxide (22-30) mmol/L Glucose (65-100) mg/dL Calcium (8.4-10.2) mg/dL Crossmatch See Detail See Detail 12/19/21 12/20/21 12/20/21 Range/Units Unknown 00:24 04:12 WBC (4.5-11.0) K/mm3 RBC 2.64 L (3.65-5.03) M/mm3 Hgb 8.0 L 10.0 L (10.1-14.3) gm/dl Hct 23.8 L 30.2 L D (30.3-42.9) % RDW 16.7 H (13.2-15.2) % PT (12.2-14.9) Sec. Sodium 135 L (137-145) mmol/L Carbon Dioxide 21 L (22-30) mmol/L Glucose 109 H (65-100) mg/dL Calcium 6.8 L (8.4-10.2) mg/dL Crossmatch 12/20/21 Range/Units 04:12 WBC 15.6 H (4.5-11.0) K/mm3 RBC 3.29 L (3.65-5.03) M/mm3 Hgb 9.4 L (10.1-14.3) gm/dl Hct 27.5 L (30.3-42.9) % RDW 19.5 H (13.2-15.2) % PT (12.2-14.9) Sec. Sodium (137-145) mmol/L Carbon Dioxide (22-30) mmol/L Glucose (65-100) mg/dL Calcium (8.4-10.2) mg/dL Crossmatch
[2021-12-20] MEDS ORDERED: VANCOMYCIN 250 MG in SODIUM CHLORIDE 0.9% 100 ML IV SCH (11:00)
--- NOTE | 2021-12-20 11:15 | Progress Note ---
Assessment and Plan Patient is doing well Increase activity with physical therapy Increase protein intake Will change wound vac on Saturday Subjective Date of service: 12/20/21 Principal diagnosis: Acute arterial bleeding Interval history: Patient states she has improved sensation in her right foot. No complaints at this time. Objective - Constitutional Vitals: Vital Signs - 12hr 12/19/21 12/19/21 12/19/21 23:15 23:30 23:45 Temperature Pulse Rate 77 87 94 H Respiratory 17 24 19 Rate Blood Pressure 125/72 130/72 106/57 O2 Sat by Pulse 99 98 96 Oximetry 12/20/21 12/20/21 12/20/21 00:00 00:15 00:30 Temperature 94.2 F L Pulse Rate 97 H 103 H 104 H Respiratory 17 19 15 Rate Blood Pressure 115/66 104/59 109/64 O2 Sat by Pulse 100 94 96 Oximetry 12/20/21 12/20/21 12/20/21 00:45 00:52 01:00 Temperature Pulse Rate 101 H 102 H 100 H Respiratory 17 16 Rate Blood Pressure 103/57 111/58 O2 Sat by Pulse 94 94 Oximetry 12/20/21 12/20/21 12/20/21 01:15 01:30 01:45 Temperature Pulse Rate 99 H 101 H 96 H Respiratory 19 16 15 Rate Blood Pressure 105/57 110/65 107/64 O2 Sat by Pulse 95 94 97 Oximetry 12/20/21 12/20/21 12/20/21 02:00 02:15 02:30 Temperature Pulse Rate 98 H 102 H 106 H Respiratory 17 12 14 Rate Blood Pressure 111/56 122/63 109/64 O2 Sat by Pulse 97 99 97 Oximetry 12/20/21 12/20/21 12/20/21 02:45 03:00 03:15 Temperature Pulse Rate 106 H 101 H 102 H Respiratory 15 18 17 Rate Blood Pressure 112/70 120/67 116/64 O2 Sat by Pulse 98 96 96 Oximetry 12/20/21 12/20/21 12/20/21 03:18 03:19 03:30 Temperature Pulse Rate 103 H 106 H Respiratory 16 Rate Blood Pressure 123/62 O2 Sat by Pulse 100 95 Oximetry 12/20/21 12/20/21 12/20/21 03:45 04:00 04:15 Temperature 97.7 F Pulse Rate 105 H 107 H 104 H Respiratory 14 12 20 Rate Blood Pressure 118/58 119/65 121/63 O2 Sat by Pulse 96 95 94 Oximetry 12/20/21 12/20/21 12/20/21 04:30 04:45 05:00 Temperature Pulse Rate 106 H 104 H 105 H Respiratory 19 16 19 Rate Blood Pressure 121/58 110/52 100/51 O2 Sat by Pulse 96 95 95 Oximetry 12/20/21 12/20/21 12/20/21 05:15 05:30 05:45 Temperature Pulse Rate 107 H 106 H 103 H Respiratory 19 12 11 L Rate Blood Pressure 107/52 105/50 102/56 O2 Sat by Pulse 94 94 95 Oximetry 12/20/21 12/20/21 12/20/21 06:00 06:15 06:30 Temperature Pulse Rate 108 H 112 H 102 H Respiratory 15 17 11 L Rate Blood Pressure 124/65 109/61 117/55 O2 Sat by Pulse 96 98 95 Oximetry 12/20/21 12/20/21 12/20/21 06:45 07:00 07:15 Temperature Pulse Rate 101 H 109 H 101 H Respiratory 12 21 12 Rate Blood Pressure 122/59 122/59 130/65 O2 Sat by Pulse 97 98 96 Oximetry 12/20/21 12/20/21 12/20/21 07:30 07:45 08:00 Temperature 97.6 F Pulse Rate 99 H 96 H 96 H Respiratory 14 15 11 L Rate Blood Pressure 124/56 122/57 133/62 O2 Sat by Pulse 96 94 98 Oximetry 12/20/21 12/20/21 12/20/21 08:15 08:30 08:45 Temperature Pulse Rate 96 H 99 H 99 H Respiratory 14 10 L 9 L Rate Blood Pressure 117/60 118/63 133/56 O2 Sat by Pulse 95 95 97 Oximetry 12/20/21 12/20/21 12/20/21 09:00 09:16 09:18 Temperature Pulse Rate 99 H 106 H 118 H Respiratory 9 L 16 Rate Blood Pressure 133/56 115/62 115/62 O2 Sat by Pulse 97 97 Oximetry 12/20/21 12/20/21 12/20/21 09:30 09:46 10:00 Temperature Pulse Rate 103 H 101 H 107 H Respiratory 10 L 18 13 Rate Blood Pressure 143/62 158/73 131/72 O2 Sat by Pulse 97 95 97 Oximetry 12/20/21 10:16 Temperature Pulse Rate 110 H Respiratory 18 Rate Blood Pressure 132/73 O2 Sat by Pulse 97 Oximetry General appearance: Present: no acute distress - Respiratory Respiratory effort: normal - Cardiovascular Rhythm: regular Extremities: pulses intact (palpable left DP), abnormal (left groin wound vac is intact. Minimal swelling of left groin) Extremity abnormal: other (left calf incision without active bleeding at this time) - Labs CBC & Chem 7: 12/20/21 04:12 12/20/21 04:12 Labs: Abnormal lab results 12/13/21 12/19/21 12/19/21 Range/Units 20:59 12:50 17:25 WBC (4.5-11.0) K/mm3 RBC (3.65-5.03) M/mm3 Hgb (10.1-14.3) gm/dl Hct (30.3-42.9) % RDW (13.2-15.2) % PT 15.5 H (12.2-14.9) Sec. Sodium (137-145) mmol/L Carbon Dioxide (22-30) mmol/L Glucose (65-100) mg/dL Calcium (8.4-10.2) mg/dL Crossmatch See Detail See Detail 12/19/21 12/20/21 12/20/21 Range/Units Unknown 00:24 04:12 WBC (4.5-11.0) K/mm3 RBC 2.64 L (3.65-5.03) M/mm3 Hgb 8.0 L 10.0 L (10.1-14.3) gm/dl Hct 23.8 L 30.2 L D (30.3-42.9) % RDW 16.7 H (13.2-15.2) % PT (12.2-14.9) Sec. Sodium 135 L (137-145) mmol/L Carbon Dioxide 21 L (22-30) mmol/L Glucose 109 H (65-100) mg/dL Calcium 6.8 L (8.4-10.2) mg/dL Crossmatch 12/20/21 Range/Units 04:12 WBC 15.6 H (4.5-11.0) K/mm3 RBC 3.29 L (3.65-5.03) M/mm3 Hgb 9.4 L (10.1-14.3) gm/dl Hct 27.5 L (30.3-42.9) % RDW 19.5 H (13.2-15.2) % PT (12.2-14.9) Sec. Sodium (137-145) mmol/L Carbon Dioxide (22-30) mmol/L Glucose (65-100) mg/dL Calcium (8.4-10.2) mg/dL Crossmatch Medications & Allergies - Medications Allergies/Adverse Reactions: Allergies No Known Allergies Allergy (Verified 12/13/21 17:26) Home Medications: Home Medications Medication Instructions Recorded Confirmed Last Taken Type Apixaban [Eliquis] 2.5 mg PO Q12HR #60 tab 09/01/21 12/14/21 12/13/21 Rx AtorvaSTATin [Lipitor] 40 mg PO DAILY 09/01/21 12/14/21 12/14/21 History Gabapentin 100 mg PO BID 09/01/21 12/14/21 12/13/21 History Pantoprazole [Protonix TAB] 40 mg PO QDAY #90 tablet 09/01/21 12/14/21 12/13/21 Rx carvediloL [Coreg] 25 mg PO BID 09/01/21 12/14/21 12/13/21 History traZODone [Desyrel] 100 mg PO QHS 09/01/21 12/14/21 12/13/21 History Venlafaxine [Effexor] 75 mg PO DAILY 11/02/21 12/14/21 12/13/21 History Aspirin EC [Halfprin EC] 81 mg PO QDAY #30 tablet 12/11/21 12/14/21 12/13/21 Rx Clopidogrel [Plavix] 75 mg PO QDAY #90 tablet 12/11/21 12/14/21 12/14/21 Rx Docusate Sodium [Colace CAP] 100 mg PO BID #60 capsule 12/11/21 12/14/21 12/13/21 Rx cilostazoL [Pletal] 50 mg PO BID #60 tab 12/11/21 12/14/21 12/13/21 Rx levoFLOXacin [Levaquin] 750 mg PO QDAY #7 tablet 12/11/21 12/14/21 12/13/21 Rx traMADoL [Ultram] 50 mg PO Q6HR PRN #20 tablet 12/11/21 12/14/21 12/13/21 Rx Active Medications: Generic Name Dose Route Start Last Admin Trade Name Shelia PRN Reason Stop Dose Admin Acetaminophen 650 mg 12/13/21 23:13 Acetaminophen 325 Mg Tab PO Q4H PRN Pain MILD(1-3)/Fever >100.5/[id number] Albuterol 2.5 mg 12/13/21 23:13 Albuterol 2.5 Mg/3 Ml Nebu IH Q3HRT PRN Shortness Of Breath Amlodipine Besylate 5 mg 12/19/21 10:00 12/20/21 09:18 Amlodipine 5 Mg Tab PO Not Given QDAY SRAVAN Apixaban 2.5 mg 12/16/21 22:00 12/20/21 09:17 Apixaban 2.5 Mg Tab PO 2.5 mg Q12HR SRAVAN Administration Protocol Atorvastatin Calcium 40 mg 12/14/21 10:00 12/20/21 09:18 Atorvastatin 40 Mg Tab PO 40 mg DAILY SRAVAN Administration Cilostazol 50 mg 12/14/21 10:00 12/20/21 09:19 Cilostazol 100 Mg Tab PO 50 mg BID SRAVAN Administration Clopidogrel Bisulfate 75 mg 12/14/21 10:00 12/20/21 09:18 Clopidogrel 75 Mg Tab PO 75 mg QDAY SRAVAN Administration Gabapentin 100 mg 12/19/21 10:00 12/20/21 09:18 Gabapentin 100 Mg Cap PO 100 mg BID SRAVAN Administration Hydralazine HCl 10 mg 12/17/21 14:23 12/18/21 06:04 Hydralazine 20 Mg/1 Ml Inj IV 10 mg Q4H PRN Administration Hypertension Cefepime HCl 2 gm in 100 mls @ 200 mls/hr 12/18/21 22:00 12/20/21 09:17 Cefepime/Ns 2 Gm/100 Ml IV 200 mls/hr Q12HR SRAVAN Administration Protocol Lactated Ringer's 1,000 mls @ 100 mls/hr 12/19/21 21:30 12/19/21 22:06 Lactated Ringers IV 100 mls/hr DIRECT SRAVAN Administration Vancomycin HCl 1,250 mg/ 275 mls @ 166.667 mls/hr 12/21/21 06:00 Sodium Chloride IV Q24H SRAVAN Vancomycin HCl 250 mg/ Sodium 105 mls @ 66.667 mls/hr 12/20/21 11:00 12/20/21 10:55 Chloride IV 12/20/21 15:00 66.667 mls/hr [id number]@1100 SRAVAN Administration Morphine Sulfate 2 mg 12/13/21 23:13 12/20/21 05:01 Morphine 2 Mg/1 Ml Inj IV 2 mg Q4H PRN Administration Pain, Moderate (4-6) Morphine Sulfate 4 mg 12/13/21 23:13 12/19/21 09:10 Morphine 4 Mg/1 Ml Inj IV 4 mg Q4H PRN Administration Pain , Severe (7-10) Naloxone HCl 0.1 mg 12/14/21 15:02 Naloxone 0.4 Mg/1 Ml Inj IV Q2MIN PRN Res Rate </= 8 or 02 SAT < 92% Ondansetron HCl 4 mg 12/14/21 15:02 12/20/21 08:03 Ondansetron 4 Mg/2 Ml Inj IV 4 mg Q8H PRN Administration Nausea And Vomiting Pantoprazole Sodium 40 mg 12/14/21 16:30 12/20/21 08:03 Pantoprazole 40 Mg Tab PO 40 mg BIDAC SRAVAN Administration Sodium Chloride 10 ml 12/13/21 23:13 12/18/21 09:54 Sodium Chloride 0.9% 10 Ml Flush Syringe IV 10 ml PRN PRN Administration LINE FLUSH Trazodone HCl 50 mg 12/19/21 22:00 12/19/21 21:43 Trazodone 50 Mg Tab PO 50 mg QHS SRAVAN Administration Venlafaxine HCl 75 mg 12/17/21 10:00 12/20/21 09:18 Venlafaxine 75 Mg Tab PO 75 mg DAILY SRAVAN Administration
--- NOTE | 2021-12-20 11:51 | Progress Note ---
<VINCENT KERNS - Last Filed: 12/20/21 19:46> Assessment and Plan Assessment and plan: This is a 56-year-old female with known history of CAD, HTN, HLD, and severe PVD s/p femoral-popliteal bypass surgery complicated with compartment syndrome required fasciotomy and right leg revascularization. 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 Patient was recently discharged home on 12/11 with [facility], patient presented back in the hospital on 12/13 with acute blood loss anemia secondary to hemorrhage/acute blood loss from home wound VAC. Hospital course to date 12/15: Currently in CCU, decreased urine output reported overnight. We will continue lactated Ringer's. Continue serial H&H. 12/16: patient noted to be anemic and given prbc. repeat post transfusion h/h is 9.5/27.4. Will need intermediate accountant abx therefore PICC ordered. 12/17: No acute events reported overnight. H&H stable. Transfer to [facility] per vascular request 12/18: Remains stable. Bleeding resolved and H&H remains stable. Awaiting additi onal wound VAC placement on LLE by wound care. Plan for possible discharge to a rehab facility, case management to arrange. 12/19: Wound VAC malfunctioning this am, saturated dressing noted at the left groin site. Pedal pulses appreciated with a doppler, H&H and VSS remain stable. Wound care contacted for Wound Vac dressing change. Continue PRN analgesia, gabapentin resumed for neuropathy pain. Vascular Surgery is also following. 12/20: S/p emergent angiooplasty, evacuation of left groin hematoma,and Replacement of Wound VAC overnight due to left groin hematoma and bleeding. Patient received 3units of PRBCs and 1unit of FFP. H&H and vital signs stable this am. No s/s of any active bleeding noted. Left groin site and Wound VAC noted with no complications. Patient remains on Pletal, Plavix, and Eliquis per Vascular Surgery. Will continue to trend H&H. Discharge planning to rehab vs LTAC. Case management to arrange Assessment and Plan #Severe Peripheral Vascular Disease #H/o left femoral-popliteal bypass with fasciotomy and Right lower extremity Revascularization #Recent Occlusive Infection s/p excision of left common femoral to left below- knee popliteal artery bypass graft - Extensive PVD history with multiple procedures, was recently discharge home on 12/11 with wound VAC and [facility] - Readmitted 2 days later for LLE hemorrhage - Vascular Surgery Consulted, appreciate recommendations - 12/14 s/p exploration of left groin with open thrombectomy of left SFA, repair of left common femoral artery, coverage of left femoral artery with muscle flap and wound VAC placement - 12/19 s/p emergent angiooplasty, evacuation of left groin hematoma,and Repla cement of Wound VAC overnight due to left groin hematoma and bleeding - On pletal, plavix, and Eliquis. Gabapentin resumed - Wound culture from, last admit on 12/04 with Klebsiella, E. coli, Pseudomonas, MRSA, and Enterococcus faecalis - ID also consult, appreciate recommendation - Jose Carlos in WBCs this am, most likely reactive to recent event - Continue IV Abx- Cefepine and Vancomycin - ID recommendations also noted, plan for long-Term IV Abx- vancomycin 1 g every 24 hours and cefepime 2 g every 12 hours until 01/05/2022 - Case management also on consulted for discharge planning - Wound care also on consult #Acute Blood Loss Anemia / #Hemorrhage from LLE Wound VAC - Presented with low H&H - s/p 10units of PRBCs and 2FFPs - CT abdomen/pelvis showed small amount of active hemorrhage in the left inguinal region and a large renal hematoma, excessive swelling throughout the entire left leg and 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 - Most likely secondary to above - s/p Left groin exploration and open thrombectomy as described above by Vascu lar Surgery - s/p emergent angiooplasty, evacuation of left groin hematoma,and Replacement of Wound VAC overnight due to left groin hematoma and bleeding - Continue to trend H&H - Transfuse for Hgb less than 7 - On pletal, plavix, and Eliquis per Vascular Surgery #Hypertension #Hyperlipidemia - BP stable - Antihypertensive regimen adjusted - Continue blood pressure monitor per protocol - PRN Hydralazinen to maintain SBP less than 160 #Moderate Protein Calorie Malnutrition - Encourage PO intake - Continue Dietary supplementation - Nutrition consulted #H/o Nicotine Dependence - Patient reported that she has not smoked since November 17 - Smoking cessation education reiterated, patient encourage to remain quit and refrain from smoking #GI/DVT Prophylaxis - PPI- Protonix - On pletal, plavix, and Eliquis #Advance Care Planning - Disease education data, care plan, diagnoses, and prognosis were discussed with patient at the bedside. Patient is a FULL code. Patient acknowledged understanding and agreed with current care plan. - Discharge planning to rehab vs LTAC. Case management to arrange The high probability of a clinically significant, sudden or life threatening deterioration of the [multiple] system(s) required my full and direct attention, intervention and personal management. The aggregate critical care time was [60] minutes. This time is in addition to time spent performing reported procedures but includes the following: [x] Data Review and interpretation [x] Patient assessment and monitoring of vital signs [x] Documentation [x] Medication orders and management Disposition Plan: IMCU Total Time Spent with Patient (Minutes): 60 History Interval history: Patient seen and examined at the bedside. Went back to OR overnight for additional Vascular procedure to due bleeding. Patient received [id number] of PRBCs and 1 FFP. Patient is stable this am, no s/s of acute bleeding noted. Left groin site noted with intact present dressing present, Wound VAC noted with no complications. Hospitalist Physical - Constitutional Vitals: Temp Pulse Resp BP Pulse Ox 97.6 F 110 H 18 132/73 97 12/20/21 08:00 12/20/21 10:16 12/20/21 10:16 12/20/21 10:16 12/20/21 10:16 General appearance: Present: no acute distress, cachectic - EENT Eyes: Present: PERRL ENT: hearing intact - Neck Neck: Present: normal ROM - Respiratory Respiratory effort: normal Respiratory: bilateral: diminished - Cardiovascular Rhythm: regular Heart Sounds: Present: S1 & S2 - Extremities Extremities: no ischemia, pulses intact, abnormal (LLE swelling, WoundVac present. Pulses appreciated with a doppler. No complications noted) Extremity abnormal: edema - Peripheral Assessment Left Lower Extremity Edema Type: Pitting Edema Degree: 2+ Capillary Refill: < 3 seconds Skin Temperature: Warm Peripheral Pulses: within normal limits - Abdominal General gastrointestinal: soft, non-distended, normal bowel sounds - Integumentary Integumentary: Present: warm, dry - Psychiatric Psychiatric: appropriate mood/affect, cooperative - Neurologic Neurologic: CNII-XII intact, moves all extremities - Allied Health Allied health notes reviewed: nursing, case management Results - Labs CBC & Chem 7: 12/20/21 04:12 12/20/21 04:12 Labs: Laboratory Last Values WBC 15.6 K/mm3 (4.5-11.0) H 12/20/21 04:12 RBC 3.29 M/mm3 (3.65-5.03) L 12/20/21 04:12 Hgb 9.4 gm/dl (10.1-14.3) L 12/20/21 04:12 Hct 27.5 % (30.3-42.9) L 12/20/21 04:12 MCV 84 fl (79-97) 12/20/21 04:12 MCH 29 pg (28-32) 12/20/21 04:12 MCHC 34 % (30-34) 12/20/21 04:12 RDW 19.5 % (13.2-15.2) H 12/20/21 04:12 Plt Count 182 K/mm3 (140-440) 12/20/21 04:12 Lymph % (Auto) 15.4 % (13.4-35.0) 12/17/21 05:00 Boundary % (Auto) 8.9 % (0.0-7.3) H 12/17/21 05:00 Eos % (Auto) 1.7 % (0.0-4.3) 12/17/21 05:00 Baso % (Auto) 1.1 % (0.0-1.8) 12/17/21 05:00 Lymph # (Auto) 1.3 K/mm3 (1.2-5.4) 12/17/21 05:00 Boundary # (Auto) 0.7 K/mm3 (0.0-0.8) 12/17/21 05:00 Eos # (Auto) 0.1 K/mm3 (0.0-0.4) 12/17/21 05:00 Baso # (Auto) 0.1 K/mm3 (0.0-0.1) 12/17/21 05:00 Seg Neutrophils % 72.9 % (40.0-70.0) H 12/17/21 05:00 Seg Neutrophils # 6.0 K/mm3 (1.8-7.7) 12/17/21 05:00 PT 15.5 Sec. (12.2-14.9) H 12/19/21 12:50 INR 1.08 (0.87-1.13) 12/19/21 12:50 APTT 32.1 Sec. (24.2-36.6) 12/19/21 12:50 Fibrinogen 399 mg/dl (211-480) 12/19/21 12:50 Heparin Anti-Xa Level 0.66 U.I./ml (0.3-0.7) 12/14/21 22:43 Sodium 135 mmol/L (137-145) L 12/20/21 04:12 Potassium 3.9 mmol/L (3.6-5.0) 12/20/21 04:12 Chloride 104.7 mmol/L (98-107) 12/20/21 04:12 Carbon Dioxide 21 mmol/L (22-30) L 12/20/21 04:12 Anion Gap 13 mmol/L 12/20/21 04:12 BUN 13 mg/dL (7-17) 12/20/21 04:12 Creatinine 0.6 mg/dL (0.6-1.2) 12/20/21 04:12 Estimated GFR > 60 ml/min 12/20/21 04:12 BUN/Creatinine Ratio 22 % 12/20/21 04:12 Glucose 109 mg/dL (65-100) H 12/20/21 04:12 Calcium 6.8 mg/dL (8.4-10.2) L 12/20/21 04:12 Phosphorus 3.80 mg/dL (2.5-4.5) 12/20/21 04:12 Magnesium 1.90 mg/dL (1.7-2.3) 12/20/21 04:12 Total Bilirubin 0.30 mg/dL (0.1-1.2) 12/13/21 18:25 AST 13 units/L (5-40) 12/13/21 18:25 ALT < 5 units/L (7-56) L 12/13/21 18:25 Alkaline Phosphatase 118 units/L (35-129) 12/13/21 18:25 Total Protein 4.6 g/dL (6.3-8.2) L 12/13/21 18:25 Albumin 2.1 g/dL (3.9-5) L 12/13/21 18:25 Albumin/Globulin Ratio 0.8 % 12/13/21 18:25 Vancomycin Trough 9.8 ug/mL (5.0-20.0) 12/19/21 04:29 Blood Type O POSITIVE 12/19/21 17:25 Antibody Screen Negative 12/19/21 17:25 Crossmatch See Detail 12/19/21 17:25 Victor/IV: Voiding Method Diaper Active Medications - Current Medications Current Medications: Generic Name Dose Route Start Last Admin Trade Name Freq PRN Reason Stop Dose Admin Acetaminophen 650 mg 12/13/21 23:13 Acetaminophen 325 Mg Tab PO Q4H PRN Pain MILD(1-3)/Fever >100.5/GONZALEZ Albuterol 2.5 mg 12/13/21 23:13 Albuterol 2.5 Mg/3 Ml Nebu IH Q3HRT PRN Shortness Of Breath Amlodipine Besylate 5 mg 12/19/21 10:00 12/20/21 09:18 Amlodipine 5 Mg Tab PO Not Given QDAY SRAVAN Apixaban 2.5 mg 12/16/21 22:00 12/20/21 09:17 Apixaban 2.5 Mg Tab PO 2.5 mg Q12HR SRAVAN Administration Protocol Atorvastatin Calcium 40 mg 12/14/21 10:00 12/20/21 09:18 Atorvastatin 40 Mg Tab PO 40 mg DAILY SRAVAN Administration Cilostazol 50 mg 12/14/21 10:00 12/20/21 09:19 Cilostazol 100 Mg Tab PO 50 mg BID SRAVAN Administration Clopidogrel Bisulfate 75 mg 12/14/21 10:00 12/20/21 09:18 Clopidogrel 75 Mg Tab PO 75 mg QDAY SRAVAN Administration Gabapentin 100 mg 12/19/21 10:00 12/20/21 09:18 Gabapentin 100 Mg Cap PO 100 mg BID SRAVAN Administration Hydralazine HCl 10 mg 12/17/21 14:23 12/18/21 06:04 Hydralazine 20 Mg/1 Ml Inj IV 10 mg Q4H PRN Administration Hypertension Cefepime HCl 2 gm in 100 mls @ 200 mls/hr 12/18/21 22:00 12/20/21 09:17 Cefepime/Ns 2 Gm/100 Ml IV 200 mls/hr Q12HR SRAVAN Administration Protocol Lactated Ringer's 1,000 mls @ 100 mls/hr 12/19/21 21:30 12/19/21 22:06 Lactated Ringers IV 100 mls/hr DIRECT SRAVAN Administration Vancomycin HCl 1,250 mg/ 275 mls @ 166.667 mls/hr 12/21/21 06:00 Sodium Chloride IV Q24H SRAVAN Vancomycin HCl 250 mg/ Sodium 105 mls @ 66.667 mls/hr 12/20/21 11:00 12/20/21 10:55 Chloride IV 12/20/21 15:00 66.667 mls/hr ONCE@1100 SRAVAN Administration Morphine Sulfate 2 mg 12/13/21 23:13 12/20/21 05:01 Morphine 2 Mg/1 Ml Inj IV 2 mg Q4H PRN Administration Pain, Moderate (4-6) Morphine Sulfate 4 mg 12/13/21 23:13 12/19/21 09:10 Morphine 4 Mg/1 Ml Inj IV 4 mg Q4H PRN Administration Pain , Severe (7-10) Naloxone HCl 0.1 mg 12/14/21 15:02 Naloxone 0.4 Mg/1 Ml Inj IV Q2MIN PRN Res Rate </= 8 or 02 SAT < 92% Ondansetron HCl 4 mg 12/14/21 15:02 12/20/21 08:03 Ondansetron 4 Mg/2 Ml Inj IV 4 mg Q8H PRN Administration Nausea And Vomiting Pantoprazole Sodium 40 mg 12/14/21 16:30 12/20/21 08:03 Pantoprazole 40 Mg Tab PO 40 mg BIDAC SRAVAN Administration Sodium Chloride 10 ml 12/13/21 23:13 12/18/21 09:54 Sodium Chloride 0.9% 10 Ml Flush Syringe IV 10 ml PRN PRN Administration LINE FLUSH Trazodone HCl 50 mg 12/19/21 22:00 12/19/21 21:43 Trazodone 50 Mg Tab PO 50 mg QHS SRAVAN Administration Venlafaxine HCl 75 mg 12/17/21 10:00 12/20/21 09:18 Venlafaxine 75 Mg Tab PO 75 mg DAILY SRAVAN Administration Nutrition/Malnutrition Assess - Dietary Evaluation Nutrition/Malnutrition Findings: Nutrition Notes Start: 12/14/21 12:00 Freq: Status: Active Protocol: Document 12/15/21 09:48 MERARI (Rec: 12/15/21 10:10 MERARI [email or web address]) Nutrition Notes Initial or Follow up Brief Note Current Diagnosis Hypertension Other Pertinent Diagnosis PVD s/p L-FP Bypass, L-FP Bypass Occlusion, L-Groin Infection, L-CUSTOMER SUPPORT CONSULTANT Injury Current Diet Cardiac Diet (since 12/13), D Suppl (since 12/15). Height 5 ft 2 in Weight 40.823 kg [place] Body Weight (kg) 50.00 BMI 16.5 Weight change and time frame No body weight change reported in 1 day. Weight Status Underweight Subjective/Other Information RD consult for dietary supplementation assessment. No reports available on Pt's PO intake of meals at the time , will assess at F/U. MD prescribed dietary supplements without RD consult , I will continue the prescription to compensate for possible poor or insufficient PO intake of meals, and to support wound healing processes, along with compensation for blood loss during LOS. Pt is on Room Air, O2 saturation @ 100%, according to Physical Assessment History notes. Procedure on 12/14: Repair of L-CUSTOMER SUPPORT CONSULTANT w/bovine pericardial patch, woundVac placement, well tolerated, according to Operative Report notes. Percent of energy/protein needs met: Prescribed Cardiac Diet provides for energy/protein needs (2,230 Kcal/85 g) during LOS; additionally, Dietary Supplements will compensate for possible poor or insufficient PO intake of meals with 1,050 Kcal and 60 g of protein. #2 Nutrition Diagnosis Increased nutrient needs ( specify in comment below) Comments: Protein to support wound healing and compensate for blood loss. Etiology L-Groin Infection, L-CUSTOMER SUPPORT CONSULTANT Injury, As Evidenced by Signs and Symptoms Procedure on 12/14: Repair of L-CUSTOMER SUPPORT CONSULTANT w/bovine pericardial patch, woundVac placement, well tolerated, according to Operative Report notes. #1 Nutrition Diagnosis Underweight Diagnosis Progress(for reassessment Continues documentation) Is patient on ventilator? No Is Patient Ambulatory and/or Out of Bed No REE-([facility]-confined to bed) 1134.852 Kcal/Kg value to use for calculation 30 Approximate Energy Requirements Using 1225 kcal/Kg Calculation Used for Recommendations Kcal/kg Additional Notes Protein: 1.5-2 g/Kg ABW; 62-84 g/day. Fluids: 1 ml/Kcal, or as per MD. Nutrition Intervention Change Diet Order: Continue Cardiac Diet. Add Supplement/Snack (indicate name/kcal Start 8 fl oz Ensure Enlive; /protein ) TID. Provides kCal: 1,050 Provides Protein (gm) 60 Goal #1 Compensate, through dietary supplementation, for possible poor or insufficient PO intake of meals during LOS. Goal #2 Support, through dietary supplementation, wound healing processes during LOS. Goal #3 Adjust the dietary intervention to better serve Pt's needs and clinical conditions during LOS. Follow-Up By: 12/22/21 Additional Comments Continue monitoring food tolerance, %PO intake of meals , dietary supplements, and BM. <ARNOLD WELCH - Last Filed: 12/21/21 07:28> Assessment and Plan Assessment and plan: I saw and evaluated the patient. I agree with the findings and the plan of care as documented in the Nurse Practitioner's~note, with the following corrections and additions. Hospitalist Physical - Constitutional Vitals: Temp Pulse Resp BP Pulse Ox 98 F 93 H 12 166/75 95 12/21/21 04:00 12/21/21 06:00 12/21/21 06:00 12/21/21 06:00 12/21/21 06:00 Results - Labs CBC & Chem 7: 12/21/21 04:43 12/21/21 04:43 Labs: Laboratory Last Values WBC 8.1 K/mm3 (4.5-11.0) 12/21/21 04:43 RBC 2.84 M/mm3 (3.65-5.03) L 12/21/21 04:43 Hgb 8.3 gm/dl (10.1-14.3) L 12/21/21 04:43 Hct 23.8 % (30.3-42.9) L 12/21/21 04:43 MCV 84 fl (79-97) 12/21/21 04:43 MCH 29 pg (28-32) 12/21/21 04:43 MCHC 35 % (30-34) H 12/21/21 04:43 RDW 21.0 % (13.2-15.2) H 12/21/21 04:43 Plt Count 215 K/mm3 (140-440) 12/21/21 04:43 Lymph % (Auto) 15.4 % (13.4-35.0) 12/17/21 05:00 Boundary % (Auto) 8.9 % (0.0-7.3) H 12/17/21 05:00 Eos % (Auto) 1.7 % (0.0-4.3) 12/17/21 05:00 Baso % (Auto) 1.1 % (0.0-1.8) 12/17/21 05:00 Lymph # (Auto) 1.3 K/mm3 (1.2-5.4) 12/17/21 05:00 Boundary # (Auto) 0.7 K/mm3 (0.0-0.8) 12/17/21 05:00 Eos # (Auto) 0.1 K/mm3 (0.0-0.4) 12/17/21 05:00 Baso # (Auto) 0.1 K/mm3 (0.0-0.1) 12/17/21 05:00 Seg Neutrophils % 72.9 % (40.0-70.0) H 12/17/21 05:00 Seg Neutrophils # 6.0 K/mm3 (1.8-7.7) 12/17/21 05:00 PT 16.0 Sec. (12.2-14.9) H 12/21/21 04:43 INR 1.12 (0.87-1.13) 12/21/21 04:43 APTT 38.3 Sec. (24.2-36.6) H 12/21/21 04:43 Fibrinogen 399 mg/dl (211-480) 12/19/21 12:50 Heparin Anti-Xa Level 0.66 U.I./ml (0.3-0.7) 12/14/21 22:43 Sodium 140 mmol/L (137-145) 12/21/21 04:43 Potassium 3.6 mmol/L (3.6-5.0) 12/21/21 04:43 Chloride 109.2 mmol/L (98-107) H 12/21/21 04:43 Carbon Dioxide 24 mmol/L (22-30) 12/21/21 04:43 Anion Gap 10 mmol/L 12/21/21 04:43 BUN 11 mg/dL (7-17) 12/21/21 04:43 Creatinine 0.6 mg/dL (0.6-1.2) 12/21/21 04:43 Estimated GFR > 60 ml/min 12/21/21 04:43 BUN/Creatinine Ratio 18 % 12/21/21 04:43 Glucose 85 mg/dL (65-100) 12/21/21 04:43 Calcium 7.5 mg/dL (8.4-10.2) L 12/21/21 04:43 Phosphorus 2.70 mg/dL (2.5-4.5) D 12/21/21 04:43 Magnesium 1.60 mg/dL (1.7-2.3) L 12/21/21 04:43 Total Bilirubin 0.30 mg/dL (0.1-1.2) 12/13/21 18:25 AST 13 units/L (5-40) 12/13/21 18:25 ALT < 5 units/L (7-56) L 12/13/21 18:25 Alkaline Phosphatase 118 units/L (35-129) 12/13/21 18:25 Total Protein 4.6 g/dL (6.3-8.2) L 12/13/21 18:25 Albumin 2.1 g/dL (3.9-5) L 12/13/21 18:25 Albumin/Globulin Ratio 0.8 % 12/13/21 18:25 Vancomycin Trough 9.8 ug/mL (5.0-20.0) 12/19/21 04:29 Blood Type O POSITIVE 12/19/21 17:25 Antibody Screen Negative 12/19/21 17:25 Crossmatch See Detail 12/19/21 17:25 Victor/IV: Voiding Method External Female Catheter Active Medications - Current Medications Current Medications: Generic Name Dose Route Start Last Admin Trade Name Freq PRN Reason Stop Dose Admin Acetaminophen 650 mg 12/13/21 23:13 Acetaminophen 325 Mg Tab PO Q4H PRN Pain MILD(1-3)/Fever >100.5/GONZALEZ Albuterol 2.5 mg 12/13/21 23:13 Albuterol 2.5 Mg/3 Ml Nebu IH Q3HRT PRN Shortness Of Breath Amlodipine Besylate 5 mg 12/19/21 10:00 12/20/21 09:18 Amlodipine 5 Mg Tab PO Not Given QDAY SRAVAN Apixaban 2.5 mg 12/16/21 22:00 12/20/21 21:03 Apixaban 2.5 Mg Tab PO 2.5 mg Q12HR [facility] Administration Protocol Atorvastatin Calcium 40 mg 12/14/21 10:00 12/20/21 09:18 Atorvastatin 40 Mg Tab PO 40 mg DAILY SRAVAN Administration Cilostazol 50 mg 12/14/21 10:00 12/20/21 21:04 Cilostazol 100 Mg Tab PO 50 mg BID SRAVAN Administration Clopidogrel Bisulfate 75 mg 12/14/21 10:00 12/20/21 09:18 Clopidogrel 75 Mg Tab PO 75 mg QDAY SRAVAN Administration Gabapentin 100 mg 12/19/21 10:00 12/20/21 21:04 Gabapentin 100 Mg Cap PO 100 mg BID SRAVAN Administration Hydralazine HCl 10 mg 12/17/21 14:23 12/20/21 18:09 Hydralazine 20 Mg/1 Ml Inj IV 10 mg Q4H PRN Administration Hypertension Cefepime HCl 2 gm in 100 mls @ 200 mls/hr 12/18/21 22:00 12/20/21 21:03 Cefepime/Ns 2 Gm/100 Ml IV 200 mls/hr Q12HR SRAVAN Administration Protocol Lactated Ringer's 1,000 mls @ 100 mls/hr 12/19/21 21:30 12/21/21 03:50 Lactated Ringers IV 100 mls/hr DIRECT SRAVAN Administration Vancomycin HCl 1,250 mg/ 275 mls @ 166.667 mls/hr 12/21/21 06:00 12/21/21 05:41 Sodium Chloride IV 166.667 mls/hr Q24H SRAVAN Administration Morphine Sulfate 2 mg 12/13/21 23:13 12/20/21 11:51 Morphine 2 Mg/1 Ml Inj IV 2 mg Q4H PRN Administration Pain, Moderate (4-6) Morphine Sulfate 4 mg 12/13/21 23:13 12/21/21 03:46 Morphine 4 Mg/1 Ml Inj IV 4 mg Q4H PRN Administration Pain , Severe (7-10) Naloxone HCl 0.1 mg 12/14/21 15:02 Naloxone 0.4 Mg/1 Ml Inj IV Q2MIN PRN Res Rate </= 8 or 02 SAT < 92% Ondansetron HCl 4 mg 12/14/21 15:02 12/20/21 08:03 Ondansetron 4 Mg/2 Ml Inj IV 4 mg Q8H PRN Administration Nausea And Vomiting Pantoprazole Sodium 40 mg 12/14/21 16:30 12/20/21 16:02 Pantoprazole 40 Mg Tab PO 40 mg BIDAC SRAVAN Administration Sodium Chloride 10 ml 12/13/21 23:13 12/18/21 09:54 Sodium Chloride 0.9% 10 Ml Flush Syringe IV 10 ml PRN PRN Administration LINE FLUSH Trazodone HCl 50 mg 12/19/21 22:00 12/20/21 21:03 Trazodone 50 Mg Tab PO 50 mg QHS SRAVAN Administration Venlafaxine HCl 75 mg 12/17/21 10:00 12/20/21 09:18 Venlafaxine 75 Mg Tab PO 75 mg DAILY SRAVAN Administration Nutrition/Malnutrition Assess - Dietary Evaluation Nutrition/Malnutrition Findings: Nutrition Notes Start: 12/14/21 12:00 Freq: Status: Active Protocol: Document 12/15/21 09:48 MERARI (Rec: 12/15/21 10:10 MERARI [email or web address]) Nutrition Notes Initial or Follow up Brief Note Current Diagnosis Hypertension Other Pertinent Diagnosis PVD s/p L-FP Bypass, L-FP Bypass Occlusion, L-Groin Infection, L-CUSTOMER SUPPORT CONSULTANT Injury Current Diet Cardiac Diet (since B 12/13), D Suppl (since 12/15). Height 5 ft 2 in Weight 40.823 kg [place] Body Weight (kg) 50.00 BMI 16.5 Weight change and time frame No body weight change reported in 1 day. Weight Status Underweight Subjective/Other Information RD consult for dietary supplementation assessment. No reports available on Pt's PO intake of meals at the time , will assess at F/U. prescribed dietary supplements without RD consult , I will continue the prescription to compensate for possible poor or insufficient PO intake of meals, and to support wound healing processes, along with compensation for blood loss during LOS. Pt is on Room Air, O2 saturation @ 100%, according to Physical Assessment History notes. Procedure on 12/14: Repair of L-CUSTOMER SUPPORT CONSULTANT w/bovine pericardial patch, woundVac placement, well tolerated, according to Operative Report notes. Percent of energy/protein needs met: Prescribed Cardiac Diet provides for energy/protein needs (2,230 Kcal/85 g) during LOS; additionally, Dietary Supplements will compensate for possible poor or insufficient PO intake of meals with 1,050 Kcal and 60 g of protein. #2 Nutrition Diagnosis Increased nutrient needs ( specify in comment below) Comments: Protein to support wound healing and compensate for blood loss. Etiology L-Groin Infection, L-CUSTOMER SUPPORT CONSULTANT Injury, As Evidenced by Signs and Symptoms Procedure on 12/14: Repair of L-CUSTOMER SUPPORT CONSULTANT w/bovine pericardial patch, woundVac placement, well tolerated, according to Operative Report notes. #1 Nutrition Diagnosis Underweight Diagnosis Progress(for reassessment Continues documentation) Is patient on ventilator? No Is Patient Ambulatory and/or Out of Bed No REE-([facility]-confined to bed) 1134.852 Kcal/Kg value to use for calculation 30 Approximate Energy Requirements Using 1225 kcal/Kg Calculation Used for Recommendations Kcal/kg Additional Notes Protein: 1.5-2 g/Kg ABW; 62-84 g/day. Fluids: 1 ml/Kcal, or as per MD. Nutrition Intervention Change Diet Order: Continue Cardiac Diet. Add Supplement/Snack (indicate name/kcal Start 8 fl oz Ensure Enlive; /protein ) TID. Provides kCal: 1,050 Provides Protein (gm) 60 Goal #1 Compensate, through dietary supplementation, for possible poor or insufficient PO intake of meals during LOS. Goal #2 Support, through dietary supplementation, wound healing processes during LOS. Goal #3 Adjust the dietary intervention to better serve Pt's needs and clinical conditions during LOS. Follow-Up By: 12/22/21 Additional Comments Continue monitoring food tolerance, %PO intake of meals , dietary supplements, and BM.
[2021-12-20] MEDS: MORPHINE 4 MG/1 ML INJ IV PRN ×2 (16:02→20:04)
[2021-12-20] MEDS: hydrALAZINE 20 MG/1 ML INJ IV PRN (18:09)
[2021-12-20] MEDS: traZODone 50 MG TAB PO SCH (21:03)
[2021-12-21] MEDS: MORPHINE 4 MG/1 ML INJ IV PRN ×4 (03:46→20:47)
[2021-12-21] MEDS: LACTATED RINGERS 1,000 ML IV SCH (03:50)
[2021-12-21 04:55] LABS: Hematocrit 23.8 % (30.3-42.9); Hemoglobin 8.3 gm/dl (10.1-14.3); Mean Corpuscular HGB Conc 35 % (30-34); Mean Corpuscular Volume 84 fl (79-97); Platelet Count 215 K/mm3 (140-440); Red Blood Count 2.84 M/mm3 (3.65-5.03)
[2021-12-21 05:04] LABS: INR 1.12 (0.87-1.13)
[2021-12-21 05:05] LABS: Partial Thromboplastin Time 38.3 Sec. (24.2-36.6)
[2021-12-21 05:19] LABS: Blood Urea Nitrogen 11 mg/dL (7-17); Calcium 7.5 mg/dL (8.4-10.2); Hemolysis Index 7
[2021-12-21 05:20] LABS: BUN/Creatinine Ratio 18
[2021-12-21] MEDS: VANCOMYCIN 1,250 MG in SODIUM CHLORIDE 0.9% 250ML 250 ML IV SCH (05:41)
[2021-12-21] MEDS ORDERED: MAGNESIUM SULFATE 2 GM/50 ML BAG IV SCH (09:00)
--- NOTE | 2021-12-21 09:48 | Progress Note ---
Assessment and Plan Patient status post multiple interventions with wound VAC in place and left groin wound and dressings in the mid and distal aspect of her left leg. She does have a palpable pedal pulse and adequate blood flow. The patient has significantly diminished nutritional status which is prolonging her wound healing. Obtained a dietitian/asphalt dauber consult for evaluation and recommendations. If the patient is not able to increase her p.o. intake, she may ultimately require a gastrostomy tube as her poor nutrition is contributing to her prolonged and repeated hospitalizations and episodes of bleeding. Subjective Date of service: 12/21/21 Principal diagnosis: Acute arterial bleeding Interval history: Patient's left leg with no active bleeding. Patient has a palpable dorsalis pedis pulse and increased sensation to her foot. Groin hematoma is decreasing in size. No significant drainage in wound VAC canister. Objective - Constitutional Vitals: Vital Signs - 12hr 12/20/21 12/20/21 12/20/21 22:00 22:30 23:00 Temperature Pulse Rate 94 H 91 H 93 H Respiratory 14 13 10 L Rate Blood Pressure 131/59 144/62 142/74 O2 Sat by Pulse 94 95 96 Oximetry 12/20/21 12/20/21 12/20/21 23:30 23:32 23:56 Temperature 98.8 F Pulse Rate 97 H 96 H Respiratory 11 L 9 L Rate Blood Pressure 146/68 136/65 O2 Sat by Pulse 95 96 Oximetry 12/21/21 12/21/21 12/21/21 00:00 00:30 01:00 Temperature Pulse Rate 99 H 89 93 H Respiratory 13 9 L 12 Rate Blood Pressure 143/78 114/58 114/58 O2 Sat by Pulse 96 96 96 Oximetry 12/21/21 12/21/21 12/21/21 01:30 02:00 02:30 Temperature Pulse Rate 94 H 88 86 Respiratory 10 L 12 9 L Rate Blood Pressure 160/77 147/71 108/67 O2 Sat by Pulse 96 96 97 Oximetry 12/21/21 12/21/21 12/21/21 03:00 03:30 04:00 Temperature 98 F Pulse Rate 85 80 95 H Respiratory 9 L 9 L 11 L Rate Blood Pressure 155/69 147/65 160/73 O2 Sat by Pulse 96 97 95 Oximetry 12/21/21 12/21/21 12/21/21 04:30 05:00 05:30 Temperature Pulse Rate 92 H 91 H 88 Respiratory 9 L 10 L 8 L Rate Blood Pressure 159/76 154/83 131/71 O2 Sat by Pulse 94 96 97 Oximetry 12/21/21 12/21/21 12/21/21 06:00 06:30 07:00 Temperature Pulse Rate 93 H 97 H 91 H Respiratory 12 8 L 8 L Rate Blood Pressure 166/75 166/75 147/81 O2 Sat by Pulse 95 95 95 Oximetry 12/21/21 12/21/21 12/21/21 07:30 08:00 08:30 Temperature 97.8 F Pulse Rate 82 90 91 H Respiratory 8 L 9 L 10 L Rate Blood Pressure 156/70 156/76 146/74 O2 Sat by Pulse 95 95 94 Oximetry 12/21/21 09:00 Temperature Pulse Rate 88 Respiratory 9 L Rate Blood Pressure 155/80 O2 Sat by Pulse 95 Oximetry General appearance: Present: mild distress - EENT Eyes: EOM intact ENT: hearing intact - Neck Neck: supple, normal ROM - Respiratory Respiratory effort: normal Extremities: abnormal Extremity abnormal: edema - Gastrointestinal General gastrointestinal: Present: deferred Rectal Exam: deferred - Genitourinary Female genitourinary: deferred - Psychiatric Psychiatric: cooperative - Labs CBC & Chem 7: 12/21/21 04:43 12/21/21 04:43 Labs: Abnormal lab results 12/21/21 12/21/21 12/21/21 Range/Units 04:43 04:43 04:43 RBC 2.84 L (3.65-5.03) M/mm3 Hgb 8.3 L (10.1-14.3) gm/dl Hct 23.8 L (30.3-42.9) % MCHC 35 H (30-34) % RDW 21.0 H (13.2-15.2) % PT 16.0 H (12.2-14.9) Sec. APTT 38.3 H (24.2-36.6) Sec. Chloride 109.2 H (98-107) mmol/L Calcium 7.5 L (8.4-10.2) mg/dL Magnesium 1.60 L (1.7-2.3) mg/dL Medications & Allergies - Medications Allergies/Adverse Reactions: Allergies No Known Allergies Allergy (Verified 12/13/21 17:26) Home Medications: Home Medications Medication Instructions Recorded Confirmed Last Taken Type Apixaban [Eliquis] 2.5 mg PO Q12HR #60 tab 09/01/21 12/14/21 12/13/21 Rx AtorvaSTATin [Lipitor] 40 mg PO DAILY 09/01/21 12/14/21 12/14/21 History Gabapentin 100 mg PO BID 09/01/21 12/14/21 12/13/21 History Pantoprazole [Protonix TAB] 40 mg PO QDAY #90 tablet 09/01/21 12/14/21 12/13/21 Rx carvediloL [Coreg] 25 mg PO BID 09/01/21 12/14/21 12/13/21 History traZODone [Desyrel] 100 mg PO QHS 09/01/21 12/14/21 12/13/21 History Venlafaxine [Effexor] 75 mg PO DAILY 11/02/21 12/14/21 12/13/21 History Aspirin EC [Halfprin EC] 81 mg PO QDAY #30 tablet 12/11/21 12/14/21 12/13/21 Rx Clopidogrel [Plavix] 75 mg PO QDAY #90 tablet 12/11/21 12/14/21 12/14/21 Rx Docusate Sodium [Colace CAP] 100 mg PO BID #60 capsule 12/11/21 12/14/2112/13 Rx cilostazoL [Pletal] 50 mg PO BID #60 tab 12/11/21 12/14/21 12/13/21 Rx levoFLOXacin [Levaquin] 750 mg PO QDAY #7 tablet 12/11/21 12/14/21 12/13/21 Rx traMADoL [Ultram] 50 mg PO Q6HR PRN #20 tablet 12/11/21 12/14/21 12/13/21 Rx Active Medications: Generic Name Dose Route Start Last Admin Trade Name Freq PRN Reason Stop Dose Admin Acetaminophen 650 mg 12/13/21 23:13 Acetaminophen 325 Mg Tab PO Q4H PRN Pain MILD(1-3)/Fever >100.5/[id number] Albuterol 2.5 mg 12/13/21 23:13 Albuterol 2.5 Mg/3 Ml Nebu IH Q3HRT PRN Shortness Of Breath Amlodipine Besylate 5 mg 12/19/21 10:00 12/20/21 09:18 Amlodipine 5 Mg Tab PO Not Given QDAY SRAVAN Apixaban 2.5 mg 12/16/21 22:00 12/20/21 21:03 Apixaban 2.5 Mg Tab PO 2.5 mg Q12HR SRAVAN Administration Protocol Atorvastatin Calcium 40 mg 12/14/21 10:00 12/20/21 09:18 Atorvastatin 40 Mg Tab PO 40 mg DAILY SRAVAN Administration Cilostazol 50 mg 12/14/21 10:00 12/20/21 21:04 Cilostazol 100 Mg Tab PO 50 mg BID SRAVAN Administration Clopidogrel Bisulfate 75 mg 12/14/21 10:00 12/20/21 09:18 Clopidogrel 75 Mg Tab PO 75 mg QDAY SRAVAN Administration Gabapentin 100 mg 12/19/21 10:00 12/20/21 21:04 Gabapentin 100 Mg Cap PO 100 mg BID SRAVAN Administration Hydralazine HCl 10 mg 12/17/21 14:23 12/20/21 18:09 Hydralazine 20 Mg/1 Ml Inj IV 10 mg Q4H PRN Administration Hypertension Cefepime HCl 2 gm in 100 mls @ 200 mls/hr 12/18/21 22:00 12/20/21 21:03 Cefepime/Ns 2 Gm/100 Ml IV 200 mls/hr Q12HR SRAVAN Administration Protocol Lactated Ringer's 1,000 mls @ 100 mls/hr 12/19/21 21:30 12/21/21 03:50 Lactated Ringers IV 100 mls/hr DIRECT SRAVAN Administration Vancomycin HCl 1,250 mg/ 275 mls @ 166.667 mls/hr 12/21/21 06:00 12/21/21 05:41 Sodium Chloride IV 166.667 mls/hr Q24H SRAVAN Administration Magnesium Sulfate 2 gm in 50 mls @ 25 mls/hr 12/21/21 09:00 Magnesium Sulfate 2gm/50ml IV 12/21/21 14:00 ONCE@0900 SRAVAN Morphine Sulfate 2 mg 12/13/21 23:13 12/20/21 11:51 Morphine 2 Mg/1 Ml Inj IV 2 mg Q4H PRN Administration Pain, Moderate (4-6) Morphine Sulfate 4 mg 12/13/21 23:13 12/21/21 03:46 Morphine 4 Mg/1 Ml Inj IV 4 mg Q4H PRN Administration Pain , Severe (7-10) Naloxone HCl 0.1 mg 12/14/21 15:02 Naloxone 0.4 Mg/1 Ml Inj IV Q2MIN PRN Res Rate </= 8 or 02 SAT < 92% Ondansetron HCl 4 mg 12/14/21 15:02 12/20/21 08:03 Ondansetron 4 Mg/2 Ml Inj IV 4 mg Q8H PRN Administration Nausea And Vomiting Pantoprazole Sodium 40 mg 12/14/21 16:30 12/20/21 16:02 Pantoprazole 40 Mg Tab PO 40 mg BIDAC SRAVAN Administration Sodium Chloride 10 ml 12/13/21 23:13 12/18/21 09:54 Sodium Chloride 0.9% 10 Ml Flush Syringe IV 10 ml PRN PRN Administration LINE FLUSH Trazodone HCl 50 mg 12/19/21 22:00 12/20/21 21:03 Trazodone 50 Mg Tab PO 50 mg QHS SRAVAN Administration Venlafaxine HCl 75 mg 12/17/21 10:00 12/20/21 09:18 Venlafaxine 75 Mg Tab PO 75 mg DAILY SRAVAN Administration
--- NOTE | 2021-12-21 10:24 | Progress Note ---
<VINCENT KERNS - Last Filed: 12/21/21 18:14> Assessment and Plan Assessment and plan: This is a 56-year-old female with known history of CAD, HTN, HLD, and severe PVD s/p femoral-popliteal bypass surgery complicated with compartment syndrome required fasciotomy and right leg revascularization. 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 Patient was recently discharged home on 12/11 with [facility], patient presented back in the hospital on 12/13 with acute blood loss anemia secondary to hemorrhage/acute blood loss from home wound VAC. Hospital course to date 12/15: Currently in CCU, decreased urine output reported overnight. We will continue lactated Ringer's. Continue serial H&H. 12/16: patient noted to be anemic and given prbc. repeat post transfusion h/h is 9.5/27.4. Will need rodent exterminator abx therefore PICC ordered. 12/17: No acute events reported overnight. H&H stable. Transfer to [facility] per vascular request 12/18: Remains stable. Bleeding resolved and H&H remains stable. Awaiting additi onal wound VAC placement on LLE by wound care. Plan for possible discharge to a rehab facility, case management to arrange. 12/19: Wound VAC malfunctioning this am, saturated dressing noted at the left groin site. Pedal pulses appreciated with a doppler, H&H and VSS remain stable. Wound care contacted for Wound Vac dressing change. Continue PRN analgesia, gabapentin resumed for neuropathy pain. Vascular Surgery is also following. 12/20: S/p emergent angiooplasty, evacuation of left groin hematoma,and Replacement of Wound VAC overnight due to left groin hematoma and bleeding. Patient received 3units of PRBCs and 1unit of FFP. H&H and vital signs stable this am. No s/s of any active bleeding noted. Left groin site and Wound VAC noted with no complications. Patient remains on Pletal, Plavix, and Eliquis per Vascular Surgery. Will continue to trend H&H. Discharge planning to rehab vs LTAC. Case management to arrange 12/21: Remains stable. Left groin site and wound vac remains intact with no c omplications. Slightly hypertensive this am, will D/C continous IVF continue current antihypertensive therapy. Possible LTAC vs rehab placement, case management to arrange. Assessment and Plan #Severe Peripheral Vascular Disease #H/o left femoral-popliteal bypass with fasciotomy and Right lower extremity Revascularization #Recent Occlusive Infection s/p excision of left common femoral to left below- knee popliteal artery bypass graft - Extensive PVD history with multiple procedures, was recently discharge home on 12/11 with wound VAC and [facility] - Readmitted 2 days later for LLE hemorrhage - Vascular Surgery Consulted, appreciate recommendations - 12/14 s/p exploration of left groin with open thrombectomy of left SFA, repair of left common femoral artery, coverage of left femoral artery with muscle flap and wound VAC placement - 12/19 s/p emergent angiooplasty, evacuation of left groin hematoma,and Replacement of Wound VAC overnight due to left groin hematoma and bleeding - On pletal, plavix, and Eliquis. Gabapentin resumed - Wound culture from, last admit on 12/04 with Klebsiella, E. coli, Pseudomonas, MRSA, and Enterococcus faecalis - ID also consult, appreciate recommendation - Leukocytosis imrpoved, most likely reactive to recent event - Continue IV Abx- Cefepine and Vancomycin per ID - ID recommendations also noted, plan for long-Term IV Abx- vancomycin 1 g every 24 hours and cefepime 2 g every 12 hours until 01/05/2022 - Case management also on consulted for discharge planning - Wound care also on consult #Acute Blood Loss Anemia 06/21 #Hemorrhage from LLE Wound VAC - Presented with low H&H - s/p 10units of PRBCs and 2FFPs - CT abdomen/pelvis showed small amount of active hemorrhage in the left inguinal region and a large renal hematoma, excessive swelling throughout the entire left leg and 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 - Most likely secondary to above - s/p Left groin exploration and open thrombectomy as described above by Vascular Surgery - s/p emergent angioplasty, evacuation of left groin hematoma,and Replacement of Wound VAC overnight due to left groin hematoma and bleeding - Continue to trend H&H - Transfuse for Hgb less than 7 - On pletal, plavix, and Eliquis per Vascular Surgery #Hypertension #Hyperlipidemia - BP stable - Antihypertensive regimen adjusted - Continue blood pressure monitor per protocol - PRN Hydralazinen to maintain SBP less than 160 #Moderate Protein Calorie Malnutrition - Encourage PO intake - Continue Dietary supplementation - Nutrition consulted #H/o Nicotine Dependence - Patient reported that she has not smoked since November 17 - Smoking cessation education reiterated, patient encourage to remain quit and refrain from smoking #GI/DVT Prophylaxis - PPI- Protonix - On pletal, plavix, and Eliquis #Advance Care Planning - Disease education data, care plan, diagnoses, and prognosis were discussed with patient at the bedside. Patient is a FULL code. Patient acknowledged under standing and agreed with current care plan. - Discharge planning to rehab vs LTAC. Case management to arrange The high probability of a clinically significant, sudden or life threatening deterioration of the [multiple] system(s) required my full and direct attention, intervention and personal management. The aggregate critical care time was [60] minutes. This time is in addition to time spent performing reported procedures but includes the following: [x] Data Review and interpretation [x] Patient assessment and monitoring of vital signs [x] Documentation [x] Medication orders and management Disposition Plan: IMCU Total Time Spent with Patient (Minutes): 60 History Interval history: Patient seen and examined at the bedside. Remains stable on RA, c/o of BLE soreness and weakness. Left groin site noted with no complications. Wound VAC remains intact with minimal output overnight, VSS. RUTH overnight Hospitalist Physical - Physical exam Narrative exam: General appearance: Present: no acute distress, cachectic - EENT Eyes: Present: PERRL ENT: hearing intact - Neck Neck: Present: normal ROM - Respiratory Respiratory effort: normal Respiratory: bilateral: diminished - Cardiovascular Rhythm: regular Heart Sounds: Present: S1 & S2 - Extremities Extremities: no ischemia, pulses intact, abnormal (LLE swelling, WoundVac present. Pulses appreciated with a doppler. No complications noted) Extremity abnormal: edema - Peripheral Assessment Left Lower Extremity Edema Type: Pitting Edema Degree: 2+ Capillary Refill: < 3 seconds Skin Temperature: Warm Peripheral Pulses: within normal limits - Abdominal General gastrointestinal: soft, non-distended, normal bowel sounds - Integumentary Integumentary: Present: warm, dry - Psychiatric Psychiatric: appropriate mood/affect, cooperative - Neurologic Neurologic: CNII-XII intact, moves all extremities - Allied Health Allied health notes reviewed: nursing, case management - Constitutional Vitals: Temp Pulse Resp BP Pulse Ox 97.8 F 88 9 L 155/80 95 08/04/22 08:00 12/21/21 09:00 12/21/21 09:00 12/21/21 09:00 12/21/21 09:00 Results - Labs CBC & Chem 7: 12/21/21 04:43 12/21/21 04:43 Labs: Laboratory Last Values WBC 8.1 K/mm3 (4.5-11.0) 12/21/21 04:43 RBC 2.84 M/mm3 (3.65-5.03) L 12/21/21 04:43 Hgb 8.3 gm/dl (10.1-14.3) L 12/21/21 04:43 Hct 23.8 % (30.3-42.9) L 12/21/21 04:43 MCV 84 fl (79-97) 12/21/21 04:43 MCH 29 pg (28-32) 12/21/21 04:43 MCHC 35 % (30-34) H 12/21/21 04:43 RDW 21.0 % (13.2-15.2) H 12/21/21 04:43 Plt Count 215 K/mm3 (140-440) 12/21/21 04:43 Lymph % (Auto) 15.4 % (13.4-35.0) 12/17/21 05:00 [place] % (Auto) 8.9 % (0.0-7.3) H 12/17/21 05:00 Eos % (Auto) 1.7 % (0.0-4.3) 12/17/21 05:00 Baso % (Auto) 1.1 % (0.0-1.8) 12/17/21 05:00 Lymph # (Auto) 1.3 K/mm3 (1.2-5.4) 12/17/21 05:00 [place] # (Auto) 0.7 K/mm3 (0.0-0.8) 12/17/21 05:00 Eos # (Auto) 0.1 K/mm3 (0.0-0.4) 12/17/21 05:00 Baso # (Auto) 0.1 K/mm3 (0.0-0.1) 12/17/21 05:00 Seg Neutrophils % 72.9 % (40.0-70.0) H 12/17/21 05:00 Seg Neutrophils # 6.0 K/mm3 (1.8-7.7) 12/17/21 05:00 PT 16.0 Sec. (12.2-14.9) H 12/21/21 04:43 INR 1.12 (0.87-1.13) 12/21/21 04:43 APTT 38.3 Sec. (24.2-36.6) H 12/21/21 04:43 Fibrinogen 399 mg/dl (211-480) 12/19/21 12:50 Heparin Anti-Xa Level 0.66 U.I./ml (0.3-0.7) 12/14/21 22:43 Sodium 140 mmol/L (137-145) 12/21/21 04:43 Potassium 3.6 mmol/L (3.6-5.0) 12/21/21 04:43 Chloride 109.2 mmol/L (98-107) H 12/21/21 04:43 Carbon Dioxide 24 mmol/L (22-30) 12/21/21 04:43 Anion Gap 10 mmol/L 12/21/21 04:43 BUN 11 mg/dL (7-17) 12/21/21 04:43 Creatinine 0.6 mg/dL (0.6-1.2) 12/21/21 04:43 Estimated GFR > 60 ml/min 12/21/21 04:43 BUN/Creatinine Ratio 18 % 12/21/21 04:43 Glucose 85 mg/dL (65-100) 12/21/21 04:43 Calcium 7.5 mg/dL (8.4-10.2) L 12/21/21 04:43 Phosphorus 2.70 mg/dL (2.5-4.5) D 12/21/21 04:43 Magnesium 1.60 mg/dL (1.7-2.3) L 12/21/21 04:43 Total Bilirubin 0.30 mg/dL (0.1-1.2) 12/13/21 18:25 AST 13 units/L (5-40) 12/13/21 18:25 ALT < 5 units/L (7-56) L 12/13/21 18:25 Alkaline Phosphatase 118 units/L (35-129) 12/13/21 18:25 Total Protein 4.6 g/dL (6.3-8.2) L 12/13/21 18:25 Albumin 2.1 g/dL (3.9-5) L 12/13/21 18:25 Albumin/Globulin Ratio 0.8 % 12/13/21 18:25 Vancomycin Trough 9.8 ug/mL (5.0-20.0) 12/19/21 04:29 Blood Type O POSITIVE 12/19/21 17:25 Antibody Screen Negative 12/19/21 17:25 Crossmatch See Detail 12/19/21 17:25 Victor/IV: Voiding Method External Female Catheter Active Medications - Current Medications Current Medications: Generic Name Dose Route Start Last Admin Trade Name Freq PRN Reason Stop Dose Admin Acetaminophen 650 mg 12/13/21 23:13 Acetaminophen 325 Mg Tab PO Q4H PRN Pain MILD(1-3)/Fever >100.5/GONZALEZ Albuterol 2.5 mg 12/13/21 23:13 Albuterol 2.5 Mg/3 Ml Nebu IH Q3HRT PRN Shortness Of Breath Amlodipine Besylate 5 mg 12/19/21 10:00 12/20/21 09:18 Amlodipine 5 Mg Tab PO Not Given QDAY SRAVAN Apixaban 2.5 mg 12/16/21 22:00 12/20/21 21:03 Apixaban 2.5 Mg Tab PO 2.5 mg Q12HR SRAVAN Administration Protocol Atorvastatin Calcium 40 mg 12/14/21 10:00 12/20/21 09:18 Atorvastatin 40 Mg Tab PO 40 mg DAILY SRAVAN Administration Cilostazol 50 mg 12/14/21 10:00 12/20/21 21:04 Cilostazol 100 Mg Tab PO 50 mg BID SRAVAN Administration Clopidogrel Bisulfate 75 mg 12/14/21 10:00 12/20/21 09:18 Clopidogrel 75 Mg Tab PO 75 mg QDAY SRAVAN Administration Gabapentin 100 mg 12/19/21 10:00 12/20/21 21:04 Gabapentin 100 Mg Cap PO 100 mg BID SRAVAN Administration Hydralazine HCl 10 mg 12/17/21 14:23 12/20/21 18:09 Hydralazine 20 Mg/1 Ml Inj IV 10 mg Q4H PRN Administration Hypertension Cefepime HCl 2 gm in 100 mls @ 200 mls/hr 12/18/21 22:00 12/20/21 21:03 Cefepime/Ns 2 Gm/100 Ml IV 01/05/22 22:29 200 mls/hr Q12HR SRAVAN Administration Protocol Lactated Ringer's 1,000 mls @ 100 mls/hr 12/19/21 21:30 12/21/21 03:50 Lactated Ringers IV 100 mls/hr DIRECT SRAVAN Administration Vancomycin HCl 1,250 mg/ 275 mls @ 166.667 mls/hr 12/21/21 06:00 12/21/21 05:41 Sodium Chloride IV 166.667 mls/hr Q24H SRAVAN Administration Magnesium Sulfate 2 gm in 50 mls @ 25 mls/hr 12/21/21 09:00 Magnesium Sulfate 2gm/50ml IV 12/21/21 14:00 ONCE@0900 SRAVAN Morphine Sulfate 2 mg 12/13/21 23:13 12/20/21 11:51 Morphine 2 Mg/1 Ml Inj IV 2 mg Q4H PRN Administration Pain, Moderate (4-6) Morphine Sulfate 4 mg 12/13/21 23:13 12/21/21 03:46 Morphine 4 Mg/1 Ml Inj IV 4 mg Q4H PRN Administration Pain , Severe (7-10) Naloxone HCl 0.1 mg 12/14/21 15:02 Naloxone 0.4 Mg/1 Ml Inj IV Q2MIN PRN Res Rate </= 8 or 02 SAT < 92% Ondansetron HCl 4 mg 12/14/21 15:02 12/20/21 08:03 Ondansetron 4 Mg/2 Ml Inj IV 4 mg Q8H PRN Administration Nausea And Vomiting Pantoprazole Sodium 40 mg 12/14/21 16:30 12/20/21 16:02 Pantoprazole 40 Mg Tab PO 40 mg BIDAC SRAVAN Administration Sodium Chloride 10 ml 12/13/21 23:13 12/18/21 09:54 Sodium Chloride 0.9% 10 Ml Flush Syringe IV 10 ml PRN PRN Administration LINE FLUSH Trazodone HCl 50 mg 12/19/21 22:00 12/20/21 21:03 Trazodone 50 Mg Tab PO 50 mg QHS SRAVAN Administration Venlafaxine HCl 75 mg 12/17/21 10:00 12/20/21 09:18 Venlafaxine 75 Mg Tab PO 75 mg DAILY SRAVAN Administration Nutrition/Malnutrition Assess - Dietary Evaluation Nutrition/Malnutrition Findings: Nutrition Notes Start: 12/14/21 12:00 Freq: Status: Active Protocol: Document 12/15/21 09:48 MERARI (Rec: 12/15/21 10:10 MERARI [id number]) Nutrition Notes Initial or Follow up Brief Note Current Diagnosis Hypertension Other Pertinent Diagnosis PVD s/p L-FP Bypass, L-FP Bypass Occlusion, L-Groin Infection, L-ELECTRONIC SYSTEMS SECURITY ASSESSMENT Injury Current Diet Cardiac Diet (since 12/13), D Suppl (since 12/15). Height 5 ft 2 in Weight 40.823 kg [place] Body Weight (kg) 50.00 BMI 16.5 Weight change and time frame No body weight change reported in 1 day. Weight Status Underweight Subjective/Other Information RD consult for dietary supplementation assessment. No reports available on Pt's PO intake of meals at the time , will assess at F/U. prescribed dietary supplements without RD consult , I will continue the prescription to compensate for possible poor or insufficient PO intake of meals, and to support wound healing processes, along with compensation for blood loss during LOS. Pt is on Room Air, O2 saturation @ 100%, according to Physical Assessment History notes. Procedure on 12/14: Repair of L-ELECTRONIC SYSTEMS SECURITY ASSESSMENT w/bovine pericardial patch, woundVac placement, well tolerated, according to Operative Report notes. Percent of energy/protein needs met: Prescribed Cardiac Diet provides for energy/protein needs (2,230 Kcal/85 g) during LOS; additionally, Dietary Supplements will compensate for possible poor or insufficient PO intake of meals with 1,050 Kcal and 60 g of protein. #2 Nutrition Diagnosis Increased nutrient needs ( specify in comment below) Comments: Protein to support wound healing and compensate for blood loss. Etiology L-Groin Infection, L-ELECTRONIC SYSTEMS SECURITY ASSESSMENT Injury, As Evidenced by Signs and Symptoms Procedure on 12/14: Repair of L-ELECTRONIC SYSTEMS SECURITY ASSESSMENT w/bovine pericardial patch, woundVac placement, well tolerated, according to Operative Report notes. #1 Nutrition Diagnosis Underweight Diagnosis Progress(for reassessment Continues documentation) Is patient on ventilator? No Is Patient Ambulatory and/or Out of Bed No REE-([facility]-confined to bed) 1134.852 Kcal/Kg value to use for calculation 30 Approximate Energy Requirements Using 1225 kcal/Kg Calculation Used for Recommendations Kcal/kg Additional Notes Protein: 1.5-2 g/Kg ABW; 62-84 g/day. Fluids: 1 ml/Kcal, or as per MD. Nutrition Intervention Change Diet Order: Continue Cardiac Diet. Add Supplement/Snack (indicate name/kcal Start 8 fl oz Ensure Enlive; /protein ) TID. Provides kCal: 1,050 Provides Protein (gm) 60 Goal #1 Compensate, through dietary supplementation, for possible poor or insufficient PO intake of meals during LOS. Goal #2 Support, through dietary supplementation, wound healing processes during LOS. Goal #3 Adjust the dietary intervention to better serve Pt's needs and clinical conditions during LOS. Follow-Up By: 12/22/21 Additional Comments Continue monitoring food tolerance, %PO intake of meals , dietary supplements, and BM. <ARNOLD WELCH E - Last Filed: 12/22/21 07:51> Assessment and Plan Assessment and plan: I saw and evaluated the patient. I agree with the findings and the plan of care as documented in the Nurse Practitioner's~note, with the following corrections and additions. Hospitalist Physical - Constitutional Vitals: Temp Pulse Resp BP Pulse Ox 98 F 84 8 L 131/65 97 12/22/21 03:28 12/22/21 06:31 12/22/21 06:31 12/22/21 06:31 12/22/21 06:31 Results - Labs CBC & Chem 7: 12/22/21 05:30 12/22/21 05:30 Labs: Laboratory Last Values WBC 7.0 K/mm3 (4.5-11.0) 12/22/21 05:30 RBC 2.56 M/mm3 (3.65-5.03) L 12/22/21 05:30 Hgb 7.4 gm/dl (10.1-14.3) L 12/22/21 05:30 Hct 21.9 % (30.3-42.9) L 12/22/21 05:30 MCV 86 fl (79-97) 12/22/21 05:30 MCH 29 pg (28-32) 12/22/21 05:30 MCHC 34 % (30-34) 12/22/21 05:30 RDW 21.1 % (13.2-15.2) H 12/22/21 05:30 Plt Count 240 K/mm3 (140-440) 12/22/21 05:30 Lymph % (Auto) 15.4 % (13.4-35.0) 12/17/21 05:00 [place] % (Auto) 8.9 % (0.0-7.3) H 12/17/21 05:00 Eos % (Auto) 1.7 % (0.0-4.3) 12/17/21 05:00 Baso % (Auto) 1.1 % (0.0-1.8) 12/17/21 05:00 Lymph # (Auto) 1.3 K/mm3 (1.2-5.4) 12/17/21 05:00 [place] # (Auto) 0.7 K/mm3 (0.0-0.8) 12/17/21 05:00 Eos # (Auto) 0.1 K/mm3 (0.0-0.4) 12/17/21 05:00 Baso # (Auto) 0.1 K/mm3 (0.0-0.1) 12/17/21 05:00 Seg Neutrophils % 72.9 % (40.0-70.0) H 12/17/21 05:00 Seg Neutrophils # 6.0 K/mm3 (1.8-7.7) 12/17/21 05:00 PT 16.0 Sec. (12.2-14.9) H 12/21/21 04:43 INR 1.12 (0.87-1.13) 12/21/21 04:43 APTT 38.3 Sec. (24.2-36.6) H 12/21/21 04:43 Fibrinogen 399 mg/dl (211-480) 12/19/21 12:50 Heparin Anti-Xa Level 0.66 U.I./ml (0.3-0.7) 12/14/21 22:43 Sodium 140 mmol/L (137-145) 12/22/21 05:30 Potassium 3.2 mmol/L (3.6-5.0) L 12/22/21 05:30 Chloride 107.3 mmol/L (98-107) H 12/22/21 05:30 Carbon Dioxide 25 mmol/L (22-30) 12/22/21 05:30 Anion Gap 11 mmol/L 12/22/21 05:30 BUN 9 mg/dL (7-17) 12/22/21 05:30 Creatinine 0.6 mg/dL (0.6-1.2) 12/22/21 05:30 Estimated GFR > 60 ml/min 12/22/21 05:30 BUN/Creatinine Ratio 15 % 12/22/21 05:30 Glucose 78 mg/dL (65-100) 12/22/21 05:30 Calcium 7.3 mg/dL (8.4-10.2) L 12/22/21 05:30 Phosphorus 3.00 mg/dL (2.5-4.5) 12/22/21 05:30 Magnesium 1.60 mg/dL (1.7-2.3) L 12/22/21 05:30 Total Bilirubin 0.30 mg/dL (0.1-1.2) 12/13/21 18:25 AST 13 units/L (5-40) 12/13/21 18:25 ALT < 5 units/L (7-56) L 12/13/21 18:25 Alkaline Phosphatase 118 units/L (35-129) 12/13/21 18:25 Total Protein 4.6 g/dL (6.3-8.2) L 12/13/21 18:25 Albumin 2.1 g/dL (3.9-5) L 12/13/21 18:25 Albumin/Globulin Ratio 0.8 % 12/13/21 18:25 Vancomycin Trough 9.8 ug/mL (5.0-20.0) 12/19/21 04:29 Blood Type O POSITIVE 12/19/21 17:25 Antibody Screen Negative 12/19/21 17:25 Crossmatch See Detail 12/19/21 17:25 Victor/IV: Voiding Method External Female Catheter Active Medications - Current Medications Current Medications: Generic Name Dose Route Start Last Admin Trade Name Freq PRN Reason Stop Dose Admin Acetaminophen 650 mg 12/13/21 23:13 12/21/21 21:50 Acetaminophen 325 Mg Tab PO 650 mg Q4H PRN Administration Pain MILD(1-3)/Fever >100.5/GONZALEZ Albuterol 2.5 mg 12/13/21 23:13 Albuterol 2.5 Mg/3 Ml Nebu IH Q3HRT PRN Shortness Of Breath Amlodipine Besylate 5 mg 12/19/21 10:00 12/21/21 10:36 Amlodipine 5 Mg Tab PO 5 mg QDAY SRAVAN Administration Apixaban 2.5 mg 12/16/21 22:00 12/21/21 21:45 Apixaban 2.5 Mg Tab PO 2.5 mg Q12HR SRAVAN Administration Protocol Atorvastatin Calcium 40 mg 12/14/21 10:00 12/21/21 10:36 Atorvastatin 40 Mg Tab PO 40 mg DAILY SRAVAN Administration Cilostazol 50 mg 12/14/21 10:00 12/21/21 21:45 Cilostazol 100 Mg Tab PO 50 mg BID SRAVAN Administration Clopidogrel Bisulfate 75 mg 12/14/21 10:00 12/21/21 10:36 Clopidogrel 75 Mg Tab PO 75 mg QDAY SRAVAN Administration Gabapentin 100 mg 12/19/21 10:00 12/21/21 21:45 Gabapentin 100 Mg Cap PO 100 mg BID SRAVAN Administration Hydralazine HCl 10 mg 12/17/21 14:23 12/20/21 18:09 Hydralazine 20 Mg/1 Ml Inj IV 10 mg Q4H PRN Administration Hypertension Cefepime HCl 2 gm in 100 mls @ 200 mls/hr 12/18/21 22:00 12/21/21 21:45 Cefepime/Ns 2 Gm/100 Ml IV 01/05/22 22:29 200 mls/hr Q12HR SRAVAN Administration Protocol Vancomycin HCl 1,250 mg/ 275 mls @ 166.667 mls/hr 12/21/21 06:00 12/22/21 05:21 Sodium Chloride IV 166.667 mls/hr Q24H SRAVAN Administration Morphine Sulfate 2 mg 12/13/21 23:13 12/20/21 11:51 Morphine 2 Mg/1 Ml Inj IV 2 mg Q4H PRN Administration Pain, Moderate (4-6) Morphine Sulfate 4 mg 12/13/21 23:13 12/22/21 05:21 Morphine 4 Mg/1 Ml Inj IV 4 mg Q4H PRN Administration Pain , Severe (7-10) Naloxone HCl 0.1 mg 12/14/21 15:02 Naloxone 0.4 Mg/1 Ml Inj IV Q2MIN PRN Res Rate </= 8 or 02 SAT < 92% Ondansetron HCl 4 mg 12/14/21 15:02 12/22/21 05:38 Ondansetron 4 Mg/2 Ml Inj IV 4 mg Q8H PRN Administration Nausea And Vomiting Pantoprazole Sodium 40 mg 12/14/21 16:30 12/21/21 17:22 Pantoprazole 40 Mg Tab PO 40 mg BIDAC SRAVAN Administration Sodium Chloride 10 ml 12/13/21 23:13 12/18/21 09:54 Sodium Chloride 0.9% 10 Ml Flush Syringe IV 10 ml PRN PRN Administration LINE FLUSH Trazodone HCl 50 mg 12/19/21 22:00 12/21/21 21:45 Trazodone 50 Mg Tab PO 50 mg QHS SRAVAN Administration Venlafaxine HCl 75 mg 12/17/21 10:00 12/21/21 10:36 Venlafaxine 75 Mg Tab PO 75 mg DAILY SRAVAN Administration Nutrition/Malnutrition Assess - Dietary Evaluation Nutrition/Malnutrition Findings: Nutrition Notes Start: 12/14/21 12:00 Freq: Status: Active Protocol: Document 12/21/21 11:08 MERARI (Rec: 12/21/21 11:48 MERARI [id number]) Nutrition Notes Initial or Follow up Reassessment Current Diagnosis Hypertension,Malnutrition, Hyperlipidemia Other Pertinent Diagnosis PVD s/p L-FP Bypass, L-FP Bypass Occlusion, L-Groin Infection, L-ELECTRONIC SYSTEMS SECURITY ASSESSMENT Injury Current Diet Regular Diet (since 12/16), D Suppl (since 12/15). Labs/Tests 12/21: Cl 109.2, Ca 7.5, Mg 1. 6. Pertinent Medications 12/21: Nutritionally unremarkable. Height 5 ft 2 in Weight 40.823 kg [place] Body Weight (kg) 50.00 BMI 16.5 Weight change and time frame No body weight change reported in 1 week. Weight Status Underweight Subjective/Other Information RD consult for malnutrition assessment. Pt's PO intake has imroved, but still Poor (50%) and fairly tolerated, Pt is also taking her dietary supplements , accvording to RN over the phone. Pt is on Room Air, O2 saturation @ 100%, according to Physical Assessment History notes. Pt has missing teeth, according to Physical Assessment History notes. Pt presents L-LE pitting edema 3+, according to Physical Assessment History notes. Pt's last BM was on 12/17, according to Physical Assessment History notes. Procedure on 12/20: Emergent angioplasty, evacuation of L- groin hematoma, and WoundVac replacement, well tolerated, according to Progress notes. Plans for discharge to LTAC or Rehab on 12/21, according to Progress notes. Percent of energy/protein needs met: Prescribed Regular Diet provides for energy/protein needs (2,289 Kcal/89 g) during LOS; additionally, Dietary Supplements will compensate for possible poor or insufficient PO intake of meals with 1,240 Kcal and 65 g of protein. Burn Absent Trauma Absent GI Symptoms None Food Allergy No Skin Integrity/Comment Several L-LE wounds. 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 Procedure on 12/20: Emergent angioplasty, evacuation of L- groin hematoma, and WoundVac replacement, well tolerated, according to Progress notes. Diagnosis Progress(for reassessment Continues documentation) #1 Nutrition Diagnosis Underweight Diagnosis Progress(for reassessment Continues documentation) Is patient on ventilator? No Is Patient Ambulatory and/or Out of Bed No [facility] 1134.852 Kcal/Kg value to use for calculation 30 Approximate Energy Requirements Using 1225 kcal/Kg Calculation Used for Recommendations Kcal/kg Additional Notes Protein: 1.5-2 g/Kg ABW; 62-84 g/day. Fluids: 1 ml/Kcal, or as per MD. Nutrition Intervention Change Diet Order: Continue Regular Diet as tolerated. Add Supplement/Snack (indicate name/kcal Continue 8 fl oz Ensure Enlive /protein ) ; TID. Start 28.8 g pkt Jeremy; BID. Provides kCal: 1,240 Provides Protein (gm) 65 Goal #1 Compensate, through dietary supplementation, for possible poor or insufficient PO intake of meals during LOS. Goal #2 Support, through dietary supplementation, wound healing processes during LOS. Goal #3 Adjust the dietary intervention to better serve Pt's needs and clinical conditions during LOS. Follow-Up By: 12/28/21 Additional Comments Continue monitoring food tolerance, %PO intake of meals , dietary supplements, and BM.
[2021-12-21] MEDS: CEFEPIME/NS 2 GM/100 ML 2 GM/100 ML BAG IV SCH ×2 (10:35→21:45)
[2021-12-21] MEDS: VENLAFAXINE 75 MG TAB PO SCH (10:36)
[2021-12-21] MEDS: PANTOPRAZOLE 40 MG TAB PO SCH ×2 (10:36→17:22)
[2021-12-21] MEDS: CILOSTAZOL 100 MG TAB PO SCH ×2 (10:36→21:45)
[2021-12-21] MEDS: amLODIPine 5 MG TAB PO SCH (10:36)
[2021-12-21] MEDS: GABAPENTIN 100 MG CAP PO SCH ×2 (10:36→21:45)
[2021-12-21] MEDS: CLOPIDOGREL 75 MG TAB PO SCH (10:36)
[2021-12-21] MEDS: APIXABAN 2.5 MG TAB PO SCH ×2 (10:36→21:45)
--- NOTE | 2021-12-21 14:29 | Progress Note ---
Assessment and Plan Cultures: Wound culture from previous surgery 12/04/2021: Klebsiella, E. 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 Infected graft was removed, having increased bleeding from the site. Leukocytosis resolved. Continue antibiotics. #Acute blood loss anemia Recs: -WBC better, continue IV vancomycin and cefepime -Case management orders in place for OPAT: vancomycin 1 g every 24 hours, cefepime 2 g every 12 hours until 01/05/2022 Marcelo Tomas MD, FACP, CR [facility] ([facility] O: [phone] F: [phone] C: [phone] Subjective Date of service: 12/21/21 Principal diagnosis: Acute arterial bleeding Interval history: Afebrile. No complaints. Feels well, asking for pain meds. Objective - Exam Narrative Exam: Physical Exam: Constitutional: Alert, cooperative. No acute distress Head, Ears, Nose: Normocephalic, atraumatic. External ears, nose normal Eyes: Conjunctivae/corneas clear. No icterus. No ptosis. Neck: Supple, no meningeal signs Cardiovascular: S1, S2 + Respiratory: Good air entry, clear to auscultation bilaterally GI: Soft, non-tender; bowel sounds normal. No peritoneal signs Musculoskeletal: Left groin wound VAC, left leg with compression dressing Skin: No rash or abscess Hem/Lymphatic: No palpable cervical or supraclavicular nodes. No lymphangitis Psych: Mood ok. Affect normal Neurological: Awake, alert, oriented. No gross abnormality - Constitutional Vitals: Vital Signs Temp Pulse Resp BP Pulse Ox 97.6 F 100 H 20 127/70 96 12/21/21 12:00 12/21/21 14:00 12/21/21 14:00 12/21/21 14:00 12/21/21 14:00 Temperature -Last 24 Hours Temperature 97.6 F Temperature 97.8 F Temperature 98 F Temperature 98.8 F Temperature 97.8 F Temperature 98.6 F - Labs CBC & Chem 7: 12/21/21 04:43 12/21/21 04:43 Labs: Abnormal lab results 12/21/21 12/21/21 12/21/21 Range/Units 04:43 04:43 04:43 RBC 2.84 L (3.65-5.03) M/mm3 Hgb 8.3 L (10.1-14.3) gm/dl Hct 23.8 L (30.3-42.9) % MCHC 35 H (30-34) % RDW 21.0 H (13.2-15.2) % PT 16.0 H (12.2-14.9) Sec. APTT 38.3 H (24.2-36.6) Sec. Chloride 109.2 H (98-107) mmol/L Calcium 7.5 L (8.4-10.2) mg/dL Magnesium 1.60 L (1.7-2.3) mg/dL
[2021-12-21] MEDS: traZODone 50 MG TAB PO SCH (21:45)
[2021-12-21] MEDS: ONDANSETRON 4 MG/2 ML INJ IV PRN (22:02)
[2021-12-22] MEDS: VANCOMYCIN 1,250 MG in SODIUM CHLORIDE 0.9% 250ML 250 ML IV SCH (05:21)
[2021-12-22] MEDS: MORPHINE 4 MG/1 ML INJ IV PRN ×3 (05:21→22:56)
[2021-12-22] MEDS: ONDANSETRON 4 MG/2 ML INJ IV PRN ×3 (05:38→22:39)
[2021-12-22 05:48] LABS: Hematocrit 21.9 % (30.3-42.9); Hemoglobin 7.4 gm/dl (10.1-14.3); Mean Corpuscular HGB Conc 34 % (30-34); Mean Corpuscular Volume 86 fl (79-97); Platelet Count 240 K/mm3 (140-440); Red Blood Count 2.56 M/mm3 (3.65-5.03)
[2021-12-22 05:54] LABS: Red Cell Distribution Width 21.1 % (13.2-15.2)
[2021-12-22 06:11] LABS: Blood Urea Nitrogen 9 mg/dL (7-17); Calcium 7.3 mg/dL (8.4-10.2); Hemolysis Index 9
[2021-12-22 06:12] LABS: BUN/Creatinine Ratio 15
[2021-12-22] MEDS: PANTOPRAZOLE 40 MG TAB PO SCH ×2 (08:30→17:30)
[2021-12-22] MEDS ORDERED: MAGNESIUM SULFATE 4 GM/100 ML BAG IV ONE (09:30)
[2021-12-22] MEDS ORDERED: POTASSIUM CHLORIDE ER 20 MEQ TAB PO SCH (10:00)
[2021-12-22] MEDS: CEFEPIME/NS 2 GM/100 ML 2 GM/100 ML BAG IV SCH ×2 (10:12→22:42)
[2021-12-22] MEDS: GABAPENTIN 100 MG CAP PO SCH ×2 (10:12→22:41)
[2021-12-22] MEDS: CILOSTAZOL 100 MG TAB PO SCH ×2 (10:13→22:41)
[2021-12-22] MEDS: DOCUSATE SODIUM 100 MG CAP PO SCH ×2 (10:13→22:41)
[2021-12-22] MEDS: APIXABAN 2.5 MG TAB PO SCH ×2 (10:14→22:41)
[2021-12-22] MEDS: CLOPIDOGREL 75 MG TAB PO SCH (10:14)
[2021-12-22] MEDS: VENLAFAXINE 75 MG TAB PO SCH (10:14)
[2021-12-22] MEDS: amLODIPine 5 MG TAB PO SCH (10:14)
--- NOTE | 2021-12-22 11:26 | Progress Note ---
Assessment and Plan Cultures: Wound culture from previous surgery 12/04/2021: Klebsiella, E. 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 Infected graft was removed, having increased bleeding from the site. Leukocytosis resolved. Continue antibiotics. #Acute blood loss anemia Recs: -Case management orders in place for OPAT: vancomycin 1 g every 24 hours, cefepime 2 g every 12 hours until 01/05/2022 Will sign off. Please call with questions. Marcelo Tomas MD, FACP, CR [facility] ([facility]) O: [phone] F: [phone] C: [phone] Subjective Date of service: 12/22/21 Principal diagnosis: Acute arterial bleeding Interval history: Afebrile. No complaints. Says she vomited yesterday, none today. No diarrhea. Tolerating abx. Objective - Exam Narrative Exam: Physical Exam: Constitutional: Alert, cooperative. No acute distress Head, Ears, Nose: Normocephalic, atraumatic. External ears, nose normal Eyes: Conjunctivae/corneas clear. No icterus. No ptosis. Neck: Supple, no meningeal signs Cardiovascular: S1, S2 + Respiratory: Good air entry, clear to auscultation bilaterally GI: Soft, non-tender; bowel sounds normal. No peritoneal signs Musculoskeletal: Left groin wound VAC, left leg with compression dressing, edema + Skin: No rash or abscess Hem/Lymphatic: No palpable cervical or supraclavicular nodes. No lymphangitis Psych: Mood ok. Affect normal Neurological: Awake, alert, oriented. No gross abnormality - Constitutional Vitals: Vital Signs Temp Pulse Resp BP Pulse Ox 98 F 79 8 L 184/76 97 12/22/21 03:28 12/22/21 10:14 12/22/21 06:31 12/22/21 10:14 12/22/21 06:31 Temperature -Last 24 Hours Temperature 98 F Temperature 98.1 F Temperature 98.5 F Temperature 97.8 F Temperature 97.6 F - Labs CBC & Chem 7: 12/22/21 05:30 12/22/21 05:30 Labs: Abnormal lab results 12/22/21 12/22/21 Range/Units 05:30 05:30 RBC 2.56 L (3.65-5.03) M/mm3 Hgb 7.4 L (10.1-14.3) gm/dl Hct 21.9 L (30.3-42.9) % RDW 21.1 H (13.2-15.2) % Potassium 3.2 L (3.6-5.0) mmol/L Chloride 107.3 H (98-107) mmol/L Calcium 7.3 L (8.4-10.2) mg/dL Magnesium 1.60 L (1.7-2.3) mg/dL
--- NOTE | 2021-12-22 12:25 | Progress Note ---
<VINCENT KERNS - Last Filed: 12/22/21 19:23> Assessment and Plan Assessment and plan: This is a 56-year-old female with known history of CAD, HTN, HLD, and severe PVD s/p femoral-popliteal bypass surgery complicated with compartment syndrome required fasciotomy and right leg revascularization. 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 Patient was recently discharged home on 12/11 with [facility], patient presented back in the hospital on 12/13 with acute blood loss anemia secondary to hemorrhage/acute blood loss from home wound VAC. Hospital course to date 12/15: Currently in CCU, decreased urine output reported overnight. We will continue lactated Ringer's. Continue serial H&H. 12/16: patient noted to be anemic and given prbc. repeat post transfusion h/h is 9.5/27.4. Will need long-term abx therefore PICC ordered. 12/17: No acute events reported overnight. H&H stable. Transfer to [facility] per vascular request 12/18: Remains stable. Bleeding resolved and H&H remains stable. Awaiting additi onal wound VAC placement on LLE by wound care. Plan for possible discharge to a rehab facility, case management to arrange. 12/19: Wound VAC malfunctioning this am, saturated dressing noted at the left groin site. Pedal pulses appreciated with a doppler, H&H and VSS remain stable. Wound care contacted for Wound Vac dressing change. Continue PRN analgesia, gabapentin resumed for neuropathy pain. Vascular Surgery is also following. 12/20: S/p emergent angiooplasty, evacuation of left groin hematoma,and Replacement of Wound VAC overnight due to left groin hematoma and bleeding. Patient received 3units of PRBCs and 1unit of FFP. H&H and vital signs stable this am. No s/s of any active bleeding noted. Left groin site and Wound VAC noted with no complications. Patient remains on Pletal, Plavix, and Eliquis per Vascular Surgery. Will continue to trend H&H. Discharge planning to rehab vs LTAC. Case management to arrange 12/21: Remains stable. Left groin site and wound vac remains intact with no c omplications. Slightly hypertensive this am, will D/C continous IVF continue current antihypertensive therapy. Possible LTAC vs rehab placement, case management to arrange. 12/22: RUTH overnight. Continue current supportive measures. Possible LTAC vs rehab placement, case management to arrange Assessment and Plan #Severe Peripheral Vascular Disease #H/o left femoral-popliteal bypass with fasciotomy and Right lower extremity Revascularization #Recent Occlusive Infection s/p excision of left common femoral to left below- knee popliteal artery bypass graft - Extensive PVD history with multiple procedures, was recently discharge home on 12/11 with wound VAC and [facility] - Readmitted 2 days later for LLE hemorrhage - Vascular Surgery Consulted, appreciate recommendations - 12/14 s/p exploration of left groin with open thrombectomy of left SFA, repair of left common femoral artery, coverage of left femoral artery with muscle flap and wound VAC placement - 12/19 s/p emergent angiooplasty, evacuation of left groin hematoma,and Replacement of Wound VAC overnight due to left groin hematoma and bleeding - On pletal, plavix, and Eliquis. Gabapentin resumed - Wound culture from, last admit on 12/04 with Klebsiella, E. coli, Pseudomonas, MRSA, and Enterococcus faecalis - Leukocytosis improved, most likely reactive to recent event - Continue IV Abx- Cefepine and Vancomycin per ID - ID recommendations also noted, plan for long-Term IV Abx- vancomycin 1 g every 24 hours and cefepime 2 g every 12 hours until 01/05/2022 - Case management also on consulted for discharge planning - Wound care also on consult - ID signed off #Acute Blood Loss Anemia / #Hemorrhage from LLE Wound VAC - Presented with low H&H - s/p 10units of PRBCs and 2FFPs - CT abdomen/pelvis showed small amount of active hemorrhage in the left inguinal region and a large renal hematoma, excessive swelling throughout the entire left leg and 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 - Most likely secondary to above - s/p Left groin exploration and open thrombectomy as described above by Vascular Surgery - s/p emergent angioplasty, evacuation of left groin hematoma,and Replacement of Wound VAC overnight due to left groin hematoma and bleeding - Continue to trend H&H - Transfuse for Hgb less than 7 - On pletal, plavix, and Eliquis per Vascular Surgery #Hypertension #Hyperlipidemia - BP stable - Antihypertensive regimen adjusted - Continue blood pressure monitor per protocol - PRN Hydralazinen to maintain SBP less than 160 #Moderate Protein Calorie Malnutrition - Encourage PO intake - Continue Dietary supplementation - Nutrition consulted #H/o Nicotine Dependence - Patient reported that she has not smoked since November 17 - Smoking cessation education reiterated, patient encourage to remain quit and refrain from smoking #GI/DVT Prophylaxis - PPI- Protonix - On pletal, plavix, and Eliquis #Advance Care Planning - Disease education data, care plan, diagnoses, and prognosis were discussed with patient at the bedside. Patient is a FULL code. Patient acknowledged understanding and agreed with current care plan. - Discharge planning to rehab vs LTAC. Case management to arrange The high probability of a clinically significant, sudden or life threatening deterioration of the [multiple] system(s) required my full and direct attention, intervention and personal management. The aggregate critical care time was [60] minutes. This time is in addition to time spent performing reported procedures but includes the following: [x] Data Review and interpretation [x] Patient assessment and monitoring of vital signs [x] Documentation [x] Medication orders and management Disposition Plan: IMCU Total Time Spent with Patient (Minutes): 60 History Interval history: Patient seen and examined at the bedside. Remains stable on RA. Left groin site noted with no complications. Wound VAC remains intact, VSS. RUTH overnight Hospitalist Physical - Physical exam Narrative exam: General appearance: Present: no acute distress, cachectic - EENT Eyes: Present: PERRL ENT: hearing intact - Neck Neck: Present: normal ROM - Respiratory Respiratory effort: normal Respiratory: bilateral: diminished - Cardiovascular Rhythm: regular Heart Sounds: Present: S1 & S2 - Extremities Extremities: no ischemia, pulses intact, abnormal (LLE swelling, WoundVac pr esent. Pulses appreciated with a doppler. No complications noted) Extremity abnormal: edema - Peripheral Assessment Left Lower Extremity Edema Type: Pitting Edema Degree: 2+ Capillary Refill: < 3 seconds Skin Temperature: Warm Peripheral Pulses: within normal limits - Abdominal General gastrointestinal: soft, non-distended, normal bowel sounds - Integumentary Integumentary: Present: warm, dry - Psychiatric Psychiatric: appropriate mood/affect, cooperative - Neurologic Neurologic: CNII-XII intact, moves all extremities - Allied Health Allied health notes reviewed: nursing, case management - Constitutional Vitals: Temp Pulse Resp BP Pulse Ox 98 F 84 11 L 141/87 95 12/22/21 03:28 12/22/21 11:30 12/22/21 11:30 12/22/21 11:30 12/22/21 11:30 Results - Labs CBC & Chem 7: 12/22/21 05:30 12/22/21 05:30 Labs: Laboratory Last Values WBC 7.0 K/mm3 (4.5-11.0) 12/22/21 05:30 RBC 2.56 M/mm3 (3.65-5.03) L 12/22/21 05:30 Hgb 7.4 gm/dl (10.1-14.3) L 12/22/21 05:30 Hct 21.9 % (30.3-42.9) L 12/22/21 05:30 MCV 86 fl (79-97) 12/22/21 05:30 MCH 29 pg (28-32) 12/22/21 05:30 MCHC 34 % (30-34) 12/22/21 05:30 RDW 21.1 % (13.2-15.2) H 12/22/21 05:30 Plt Count 240 K/mm3 (140-440) 12/22/21 05:30 Lymph % (Auto) 15.4 % (13.4-35.0) 12/17/21 05:00 [place] % (Auto) 8.9 % (0.0-7.3) H 12/17/21 05:00 Eos % (Auto) 1.7 % (0.0-4.3) 12/17/21 05:00 Baso % (Auto) 1.1 % (0.0-1.8) 12/17/21 05:00 Lymph # (Auto) 1.3 K/mm3 (1.2-5.4) 12/17/21 05:00 [place] # (Auto) 0.7 K/mm3 (0.0-0.8) 12/17/21 05:00 Eos # (Auto) 0.1 K/mm3 (0.0-0.4) 12/17/21 05:00 Baso # (Auto) 0.1 K/mm3 (0.0-0.1) 12/17/21 05:00 Seg Neutrophils % 72.9 % (40.0-70.0) H 12/17/21 05:00 Seg Neutrophils # 6.0 K/mm3 (1.8-7.7) 12/17/21 05:00 PT 16.0 Sec. (12.2-14.9) H 12/21/21 04:43 INR 1.12 (0.87-1.13) 12/21/21 04:43 APTT 38.3 Sec. (24.2-36.6) H 12/21/21 04:43 Fibrinogen 399 mg/dl (211-480) 12/19/21 12:50 Heparin Anti-Xa Level 0.66 U.I./ml (0.3-0.7) 12/14/21 22:43 Sodium 140 mmol/L (137-145) 12/22/21 05:30 Potassium 3.2 mmol/L (3.6-5.0) L 12/22/21 05:30 Chloride 107.3 mmol/L (98-107) H 12/22/21 05:30 Carbon Dioxide 25 mmol/L (22-30) 12/22/21 05:30 Anion Gap 11 mmol/L 12/22/21 05:30 BUN 9 mg/dL (7-17) 12/22/21 05:30 Creatinine 0.6 mg/dL (0.6-1.2) 12/22/21 05:30 Estimated GFR > 60 ml/min 12/22/21 05:30 BUN/Creatinine Ratio 15 % 12/22/21 05:30 Glucose 78 mg/dL (65-100) 12/22/21 05:30 Calcium 7.3 mg/dL (8.4-10.2) L 12/22/21 05:30 Phosphorus 3.00 mg/dL (2.5-4.5) 12/22/21 05:30 Magnesium 1.60 mg/dL (1.7-2.3) L 12/22/21 05:30 Total Bilirubin 0.30 mg/dL (0.1-1.2) 12/13/21 18:25 AST 13 units/L (5-40) 12/13/21 18:25 ALT < 5 units/L (7-56) L 12/13/21 18:25 Alkaline Phosphatase 118 units/L (35-129) 12/13/21 18:25 Total Protein 4.6 g/dL (6.3-8.2) L 12/13/21 18:25 Albumin 2.1 g/dL (3.9-5) L 12/13/21 18:25 Albumin/Globulin Ratio 0.8 % 12/13/21 18:25 Vancomycin Trough 9.8 ug/mL (5.0-20.0) 12/19/21 04:29 Blood Type O POSITIVE 12/19/21 17:25 Antibody Screen Negative 12/19/21 17:25 Crossmatch See Detail 12/19/21 17:25 Victor/IV: Voiding Method External Female Catheter Active Medications - Current Medications Current Medications: Generic Name Dose Route Start Last Admin Trade Name Freq PRN Reason Stop Dose Admin Acetaminophen 650 mg 12/13/21 23:13 12/21/21 21:50 Acetaminophen 325 Mg Tab PO 650 mg Q4H PRN Administration Pain MILD(1-3)/Fever >100.5/GONZALEZ Albuterol 2.5 mg 12/13/21 23:13 Albuterol 2.5 Mg/3 Ml Nebu IH Q3HRT PRN Shortness Of Breath Amlodipine Besylate 5 mg 12/19/21 10:00 12/22/21 10:14 Amlodipine 5 Mg Tab PO 5 mg QDAY SRAVAN Administration Apixaban 2.5 mg 12/16/21 22:00 12/22/21 10:14 Apixaban 2.5 Mg Tab PO 2.5 mg Q12HR SRAVAN Administration Protocol Atorvastatin Calcium 40 mg 12/14/21 10:00 12/22/21 10:14 Atorvastatin 40 Mg Tab PO 40 mg DAILY SRAVAN Administration Cilostazol 50 mg 12/14/21 10:00 12/22/21 10:13 Cilostazol 100 Mg Tab PO 50 mg BID SRAVAN Administration Clopidogrel Bisulfate 75 mg 12/14/21 10:00 12/22/21 10:14 Clopidogrel 75 Mg Tab PO 75 mg QDAY SRAVAN Administration Docusate Sodium 100 mg 12/22/21 10:00 12/22/21 10:13 Docusate Sodium 100 Mg Cap PO 100 mg BID SRAVAN Administration Gabapentin 100 mg 12/19/21 10:00 12/22/21 10:12 Gabapentin 100 Mg Cap PO 100 mg BID SRAVAN Administration Hydralazine HCl 10 mg 12/17/21 14:23 12/20/21 18:09 Hydralazine 20 Mg/1 Ml Inj IV 10 mg Q4H PRN Administration Hypertension Cefepime HCl 2 gm in 100 mls @ 200 mls/hr 12/18/21 22:00 12/22/21 10:12 Cefepime/Ns 2 Gm/100 Ml IV 01/05/22 22:29 200 mls/hr Q12HR SRAVAN Administration Protocol Vancomycin HCl 1,250 mg/ 275 mls @ 166.667 mls/hr 12/21/21 06:00 12/22/21 05:21 Sodium Chloride IV 166.667 mls/hr Q24H SRAVAN Administration Magnesium Sulfate 4 gm in 100 mls @ 25 mls/hr 12/22/21 09:30 12/22/21 10:14 Magnesium Sulfate 4gm/100ml IV 12/22/21 13:29 25 mls/hr ONCE ONE Administration Morphine Sulfate 2 mg 12/13/21 23:13 12/20/21 11:51 Morphine 2 Mg/1 Ml Inj IV 2 mg Q4H PRN Administration Pain, Moderate (4-6) Morphine Sulfate 4 mg 12/13/21 23:13 12/22/21 05:21 Morphine 4 Mg/1 Ml Inj IV 4 mg Q4H PRN Administration Pain , Severe (7-10) Naloxone HCl 0.1 mg 12/14/21 15:02 Naloxone 0.4 Mg/1 Ml Inj IV Q2MIN PRN Res Rate </= 8 or 02 SAT < 92% Ondansetron HCl 4 mg 12/14/21 15:02 12/22/21 05:38 Ondansetron 4 Mg/2 Ml Inj IV 4 mg Q8H PRN Administration Nausea And Vomiting Pantoprazole Sodium 40 mg 12/14/21 16:30 12/22/21 08:30 Pantoprazole 40 Mg Tab PO 40 mg BIDAC SRAVAN Administration Potassium Chloride 40 meq 12/22/21 10:00 12/22/21 10:12 Potassium Chloride Er 20 Meq Tab PO 12/22/21 13:00 40 meq ONCE SRAVAN Administration Senna 17.2 mg 12/22/21 22:00 Sennosides 8.6 Mg Tab PO QHS SRAVAN Sodium Chloride 10 ml 12/13/21 23:13 12/18/21 09:54 Sodium Chloride 0.9% 10 Ml Flush Syringe IV 10 ml PRN PRN Administration LINE FLUSH Trazodone HCl 50 mg 12/19/21 22:00 12/21/21 21:45 Trazodone 50 Mg Tab PO 50 mg QHS SRAVAN Administration Venlafaxine HCl 75 mg 12/17/21 10:00 12/22/21 10:14 Venlafaxine 75 Mg Tab PO 75 mg DAILY SRAVAN Administration Nutrition/Malnutrition Assess - Dietary Evaluation Nutrition/Malnutrition Findings: Nutrition Notes Start: 12/14/21 12 :00 Freq: Status: Active Protocol: Document 12/21/21 11:08 MERARI (Rec: 12/21/21 11:48 MERARI [id number]) Nutrition Notes Initial or Follow up Reassessment Current Diagnosis Hypertension,Malnutrition, Hyperlipidemia Other Pertinent Diagnosis PVD s/p L-FP Bypass, L-FP Bypass Occlusion, L-Groin Infection, 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 Labs/Tests 12/21: Cl 109.2, Ca 7.5, Mg 1. 6. Pertinent Medications 12/21: Nutritionally unremarkable. Height 5 ft 2 in Weight 40.823 kg [place] Body Weight (kg) 50.00 BMI 16.5 Weight change and time frame No body weight change reported in 1 week. Weight Status Underweight Subjective/Other Information RD consult for malnutrition assessment. Pt's PO intake has imroved, but still Poor (50%) and fairly tolerated, Pt is also taking her dietary supplements , accvording to RN over the phone. Pt is on Room Air, O2 saturation @ 100%, according to Physical Assessment History notes. Pt has missing teeth, according to Physical Assessment History notes. Pt presents L-LE pitting edema 3+, according to Physical Assessment History notes. Pt's last BM was on 12/17, according to Physical Assessment History notes. Procedure on 12/20: Emergent angioplasty, evacuation of L- groin hematoma, and WoundVac replacement, well tolerated, according to Progress notes. Plans for discharge to LTAC or Rehab on 12/21, according to Progress notes. Percent of energy/protein needs met: Prescribed Regular Diet provides for energy/protein needs (2,289 Kcal/89 g) during LOS; additionally, Dietary Supplements will compensate for possible poor or insufficient PO intake of meals with 1,240 Kcal and 65 g of protein. Burn Absent Trauma Absent GI Symptoms None Food Allergy No Skin Integrity/Comment Several L-LE wounds. 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 Procedure on 12/20: Emergent angioplasty, evacuation of L- groin hematoma, and WoundVac replacement, well tolerated, according to Progress notes. Diagnosis Progress(for reassessment Continues documentation) #1 Nutrition Diagnosis Underweight Diagnosis Progress(for reassessment Continues documentation) Is patient on ventilator? No Is Patient Ambulatory and/or Out of Bed No REE-([facility]-confined to bed) 1134.852 Kcal/Kg value to use for calculation 30 Approximate Energy Requirements Using 1225 kcal/Kg Calculation Used for Recommendations Kcal/kg Additional Notes Protein: 1.5-2 g/Kg ABW; 62-84 g/day. Fluids: 1 ml/Kcal, or as per MD. Nutrition Intervention Change Diet Order: Continue Regular Diet as tolerated. Add Supplement/Snack (indicate name/kcal Continue 8 fl oz Ensure Enlive /protein ) ; TID. Start 28.8 g pkt Jeremy; BID. Provides kCal: 1,240 Provides Protein (gm) 65 Goal #1 Compensate, through dietary supplementation, for possible poor or insufficient PO intake of meals during LOS. Goal #2 Support, through dietary supplementation, wound healing processes during LOS. Goal #3 Adjust the dietary intervention to better serve Pt's needs and clinical conditions during LOS. Follow-Up By: 12/28/21 Additional Comments Continue monitoring food tolerance, %PO intake of meals , dietary supplements, and BM. <ARNOLD WELCH - Last Filed: 12/23/21 07:26> Assessment and Plan Assessment and plan: I saw and evaluated the patient. I agree with the findings and the plan of care as documented in the Nurse Practitioner's~note, with the following corrections and additions. Hospitalist Physical - Constitutional Vitals: Temp Pulse Resp BP Pulse Ox 97.5 F L 87 13 140/65 97 12/23/21 04:00 12/23/21 06:00 12/23/21 06:40 12/23/21 06:00 12/23/21 06:00 Results - Labs CBC & Chem 7: 12/22/21 05:30 12/23/21 06:30 Labs: Laboratory Last Values WBC 7.0 K/mm3 (4.5-11.0) 12/22/21 05:30 RBC 2.56 M/mm3 (3.65-5.03) L 12/22/21 05:30 Hgb 7.4 gm/dl (10.1-14.3) L 12/22/21 05:30 Hct 21.9 % (30.3-42.9) L 12/22/21 05:30 MCV 86 fl (79-97) 12/22/21 05:30 MCH 29 pg (28-32) 12/22/21 05:30 MCHC 34 % (30-34) 12/22/21 05:30 RDW 21.1 % (13.2-15.2) H 12/22/21 05:30 Plt Count 240 K/mm3 (140-440) 12/22/21 05:30 Lymph % (Auto) 15.4 % (13.4-35.0) 12/17/21 05:00 [place] % (Auto) 8.9 % (0.0-7.3) H 12/17/21 05:00 Eos % (Auto) 1.7 % (0.0-4.3) 12/17/21 05:00 Baso % (Auto) 1.1 % (0.0-1.8) 12/17/21 05:00 Lymph # (Auto) 1.3 K/mm3 (1.2-5.4) 12/17/21 05:00 [place] # (Auto) 0.7 K/mm3 (0.0-0.8) 12/17/21 05:00 Eos # (Auto) 0.1 K/mm3 (0.0-0.4) 12/17/21 05:00 Baso # (Auto) 0.1 K/mm3 (0.0-0.1) 12/17/21 05:00 Seg Neutrophils % 72.9 % (40.0-70.0) H 12/17/21 05:00 Seg Neutrophils # 6.0 K/mm3 (1.8-7.7) 12/17/21 05:00 PT 16.0 Sec. (12.2-14.9) H 12/21/21 04:43 INR 1.12 (0.87-1.13) 12/21/21 04:43 APTT 38.3 Sec. (24.2-36.6) H 12/21/21 04:43 Fibrinogen 399 mg/dl (211-480) 12/19/21 12:50 Heparin Anti-Xa Level 0.66 U.I./ml (0.3-0.7) 12/14/21 22:43 Sodium 137 mmol/L (137-145) 12/23/21 06:30 Potassium 3.4 mmol/L (3.6-5.0) L 12/23/21 06:30 Chloride 104.9 mmol/L (98-107) 12/23/21 06:30 Carbon Dioxide 27 mmol/L (22-30) 12/23/21 06:30 Anion Gap 9 mmol/L 12/23/21 06:30 BUN 12 mg/dL (7-17) 12/23/21 06:30 Creatinine 0.6 mg/dL (0.6-1.2) 12/23/21 06:30 Estimated GFR > 60 ml/min 12/23/21 06:30 BUN/Creatinine Ratio 20 % 12/23/21 06:30 Glucose 80 mg/dL (65-100) 12/23/21 06:30 Calcium 7.2 mg/dL (8.4-10.2) L 12/23/21 06:30 Phosphorus 2.60 mg/dL (2.5-4.5) 12/23/21 06:30 Magnesium 1.80 mg/dL (1.7-2.3) 12/23/21 06:30 Total Bilirubin 0.30 mg/dL (0.1-1.2) 12/13/21 18:25 AST 13 units/L (5-40) 12/13/21 18:25 ALT < 5 units/L (7-56) L 12/13/21 18:25 Alkaline Phosphatase 118 units/L (35-129) 12/13/21 18:25 Total Protein 4.6 g/dL (6.3-8.2) L 12/13/21 18:25 Albumin 2.1 g/dL (3.9-5) L 12/13/21 18:25 Albumin/Globulin Ratio 0.8 % 12/13/21 18:25 Vancomycin Trough 9.8 ug/mL (5.0-20.0) 12/19/21 04:29 Blood Type O POSITIVE 12/19/21 17:25 Antibody Screen Negative 12/19/21 17:25 Crossmatch See Detail 12/19/21 17:25 Victor/IV: Voiding Method External Female Catheter Active Medications - Current Medications Current Medications: Generic Name Dose Route Start Last Admin Trade Name Freq PRN Reason Stop Dose Admin Acetaminophen 650 mg 12/13/21 23:13 12/21/21 21:50 Acetaminophen 325 Mg Tab PO 650 mg Q4H PRN Administration Pain MILD(1-3)/Fever >100.5/GONZALEZ Albuterol 2.5 mg 12/13/21 23:13 Albuterol 2.5 Mg/3 Ml Nebu IH Q3HRT PRN Shortness Of Breath Amlodipine Besylate 5 mg 12/19/21 10:00 12/22/21 10:14 Amlodipine 5 Mg Tab PO 5 mg QDAY SRAVAN Administration Apixaban 2.5 mg 12/16/21 22:00 12/22/21 22:41 Apixaban 2.5 Mg Tab PO 2.5 mg Q12HR SRAVAN Administration Protocol Atorvastatin Calcium 40 mg 12/14/21 10:00 12/22/21 10:14 Atorvastatin 40 Mg Tab PO 40 mg DAILY SRAVAN Administration Cilostazol 50 mg 12/14/21 10:00 12/22/21 22:41 Cilostazol 100 Mg Tab PO 50 mg BID SRAVAN Administration Clopidogrel Bisulfate 75 mg 12/14/21 10:00 12/22/21 10:14 Clopidogrel 75 Mg Tab PO 75 mg QDAY SRAVAN Administration Docusate Sodium 100 mg 12/22/21 10:00 12/22/21 22:41 Docusate Sodium 100 Mg Cap PO 100 mg BID SRAVAN Administration Gabapentin 100 mg 12/19/21 10:00 12/22/21 22:41 Gabapentin 100 Mg Cap PO 100 mg BID SRAVAN Administration Hydralazine HCl 10 mg 12/17/21 14:23 12/20/21 18:09 Hydralazine 20 Mg/1 Ml Inj IV 10 mg Q4H PRN Administration Hypertension Cefepime HCl 2 gm in 100 mls @ 200 mls/hr 12/18/21 22:00 12/22/21 22:42 Cefepime/Ns 2 Gm/100 Ml IV 01/05/22 22:29 200 mls/hr Q12HR SRAVAN Administration Protocol Vancomycin HCl 1,250 mg/ 275 mls @ 166.667 mls/hr 12/21/21 06:00 12/23/21 06:40 Sodium Chloride IV 166.667 mls/hr Q24H SRAVAN Administration Morphine Sulfate 2 mg 12/13/21 23:13 12/22/21 12:48 Morphine 2 Mg/1 Ml Inj IV 2 mg Q4H PRN Administration Pain, Moderate (4-6) Morphine Sulfate 4 mg 12/13/21 23:13 12/23/21 06:40 Morphine 4 Mg/1 Ml Inj IV 4 mg Q4H PRN Administration Pain , Severe (7-10) Naloxone HCl 0.1 mg 12/14/21 15:02 Naloxone 0.4 Mg/1 Ml Inj IV Q2MIN PRN Res Rate </= 8 or 02 SAT < 92% Ondansetron HCl 4 mg 12/14/21 15:02 12/23/21 06:40 Ondansetron 4 Mg/2 Ml Inj IV 4 mg Q8H PRN Administration Nausea And Vomiting Pantoprazole Sodium 40 mg 12/14/21 16:30 12/22/21 17:30 Pantoprazole 40 Mg Tab PO 40 mg BIDAC SRAVAN Administration Senna 17.2 mg 12/22/21 22:00 12/22/21 22:41 Sennosides 8.6 Mg Tab PO 17.2 mg QHS SRAVAN Administration Sodium Chloride 10 ml 12/13/21 23:13 12/18/21 09:54 Sodium Chloride 0.9% 10 Ml Flush Syringe IV 10 ml PRN PRN Administration LINE FLUSH Trazodone HCl 50 mg 12/19/21 22:00 12/22/21 22:41 Trazodone 50 Mg Tab PO 50 mg QHS SRAVAN Administration Venlafaxine HCl 75 mg 12/17/21 10:00 12/22/21 10:14 Venlafaxine 75 Mg Tab PO 75 mg DAILY SRAVAN Administration Nutrition/Malnutrition Assess - Dietary Evaluation Nutrition/Malnutrition Findings: Nutrition Notes Start: 12/14/21 12:00 Freq: Status: Active Protocol: Document 12/21/21 11:08 MERARI (Rec: 12/21/21 11:48 MERARI [id number]) Nutrition Notes Initial or Follow up Reassessment Current Diagnosis Hypertension,Malnutrition, Hyperlipidemia Other Pertinent Diagnosis PVD s/p L-FP Bypass, L-FP Bypass Occlusion, L-Groin Infection, 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 Labs/Tests 12/21: Cl 109.2, Ca 7.5, Mg 1. 6. Pertinent Medications 12/21: Nutritionally unremarkable. Height 5 ft 2 in Weight 40.823 kg [place] Body Weight (kg) 50.00 BMI 16.5 Weight change and time frame No body weight change reported in 1 week. Weight Status Underweight Subjective/Other Information RD consult for malnutrition assessment. Pt's PO intake has imroved, but still Poor (50%) and fairly tolerated, Pt is also taking her dietary supplements , accvording to RN over the phone. Pt is on Room Air, O2 saturation @ 100%, according to Physical Assessment History notes. Pt has missing teeth, according to Physical Assessment History notes. Pt presents L-LE pitting edema 3+, according to Physical Assessment History notes. Pt's last BM was on 12/17, according to Physical Assessment History notes. Procedure on 12/20: Emergent angioplasty, evacuation of L- groin hematoma, and WoundVac replacement, well tolerated, according to Progress notes. Plans for discharge to LTAC or Rehab on 12/21, according to Progress notes. Percent of energy/protein needs met: Prescribed Regular Diet provides for energy/protein needs (2,289 Kcal/89 g) during LOS; additionally, Dietary Supplements will compensate for possible poor or insufficient PO intake of meals with 1,240 Kcal and 65 g of protein. Burn Absent Trauma Absent GI Symptoms None Food Allergy No Skin Integrity/Comment Several L-LE wounds. 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 Procedure on 12/20: Emergent angioplasty, evacuation of L- groin hematoma, and WoundVac replacement, well tolerated, according to Progress notes. Diagnosis Progress(for reassessment Continues documentation) #1 Nutrition Diagnosis Underweight Diagnosis Progress(for reassessment Continues documentation) Is patient on ventilator? No Is Patient Ambulatory and/or Out of Bed No REE-(Dupage-St. Jeor-confined to bed) 1134.852 Kcal/Kg value to use for calculation 30 Approximate Energy Requirements Using 1225 kcal/Kg Calculation Used for Recommendations Kcal/kg Additional Notes Protein: 1.5-2 g/Kg ABW; 62-84 g/day. Fluids: 1 ml/Kcal, or as per MD. Nutrition Intervention Change Diet Order: Continue Regular Diet as tolerated. Add Supplement/Snack (indicate name/kcal Continue 8 fl oz Ensure Enlive /protein ) ; TID. Start 28.8 g pkt Jeremy; BID. Provides kCal: 1,240 Provides Protein (gm) 65 Goal #1 Compensate, through dietary supplementation, for possible poor or insufficient PO intake of meals during LOS. Goal #2 Support, through dietary supplementation, wound healing processes during LOS. Goal #3 Adjust the dietary intervention to better serve Pt's needs and clinical conditions during LOS. Follow-Up By: 12/28/21 Additional Comments Continue monitoring food tolerance, %PO intake of meals , dietary supplements, and BM.
[2021-12-22] MEDS: MORPHINE 2 MG/1 ML INJ IV PRN (12:48)
--- NOTE | 2021-12-22 15:00 | Progress Note ---
Assessment and Plan The patient is doing well. Anemia likely secondary to overall clinical state and malnutrition. No bleeding at this time. The wounds are granulating however they are slow to heal secondary to poor nutritional intake. Left groin wound VAC was removed and a wound VAC was replaced bridging all 3 incisions. There was an adequate seal at the completion of the wound VAC placement. Increase activity as tolerated per physical therapy. Will continue to encourage the patient to increase her nutritional intake. Have discussed with her that if she is unable to do this she will require a gastrostomy tube. Subjective Date of service: 12/22/21 Principal diagnosis: Acute arterial bleeding Interval history: Patient without significant events overnight. Some tenderness within the groin however no additional complaints. Objective - Constitutional Vitals: Vital Signs - 12hr 12/22/21 12/22/21 12/22/21 03:00 03:28 03:31 Temperature 98 F Pulse Rate 87 84 Respiratory 7 L 8 L Rate Respiratory Rate [Left Leg] Blood Pressure 118/58 118/58 O2 Sat by Pulse 95 95 Oximetry 12/22/21 12/22/21 12/22/21 04:00 04:10 04:31 Temperature Pulse Rate 87 88 101 H Respiratory 12 11 L Rate Respiratory Rate [Left Leg] Blood Pressure 114/60 114/60 O2 Sat by Pulse 96 93 Oximetry 12/22/21 12/22/21 12/22/21 05:00 05:20 05:21 Temperature Pulse Rate 84 Respiratory 8 L 12 Rate Respiratory 12 Rate [Left Leg] Blood Pressure 132/66 O2 Sat by Pulse 93 Oximetry 12/22/21 12/22/21 12/22/21 05:31 05:51 06:00 Temperature Pulse Rate 81 80 Respiratory 11 L 10 L 7 L Rate Respiratory Rate [Left Leg] Blood Pressure 114/60 131/65 O2 Sat by Pulse 94 97 Oximetry 12/22/21 12/22/21 12/22/21 06:31 07:01 07:31 Temperature Pulse Rate 84 81 76 Respiratory 8 L 9 L 9 L Rate Respiratory Rate [Left Leg] Blood Pressure 131/65 181/81 181/81 O2 Sat by Pulse 97 98 97 Oximetry 12/22/21 12/22/21 12/22/21 08:00 08:31 09:00 Temperature Pulse Rate 75 85 75 Respiratory 8 L 11 L 8 L Rate Respiratory Rate [Left Leg] Blood Pressure 150/80 150/80 161/71 O2 Sat by Pulse 98 94 97 Oximetry 12/22/21 12/22/21 12/22/21 09:31 10:00 10:14 Temperature Pulse Rate 75 78 79 Respiratory 8 L 10 L Rate Respiratory Rate [Left Leg] Blood Pressure 161/71 184/76 184/76 O2 Sat by Pulse 98 96 Oximetry 12/22/21 12/22/21 12/22/21 10:31 11:01 11:30 Temperature Pulse Rate 80 97 H 84 Respiratory 14 22 11 L Rate Respiratory Rate [Left Leg] Blood Pressure 184/76 141/87 141/87 O2 Sat by Pulse 93 95 95 Oximetry General appearance: Present: no acute distress - Respiratory Respiratory effort: normal - Cardiovascular Rhythm: regular Extremities: pulses intact (Palpable left dorsalis pedis pulse), abnormal (Left groin wound VAC intact) Extremity abnormal: edema (Left lower extremity), other (Left thigh wound and left calf wound with some granulation tissue, no evidence of bleeding, no overt signs of infection) - Gastrointestinal General gastrointestinal: Present: soft, non-tender - Labs CBC & Chem 7: 12/22/21 05:30 12/22/21 05:30 Labs: Abnormal lab results 12/22/21 12/22/21 Range/Units 05:30 05:30 RBC 2.56 L (3.65-5.03) M/mm3 Hgb 7.4 L (10.1-14.3) gm/dl Hct 21.9 L (30.3-42.9) % RDW 21.1 H (13.2-15.2) % Potassium 3.2 L (3.6-5.0) mmol/L Chloride 107.3 H (98-107) mmol/L Calcium 7.3 L (8.4-10.2) mg/dL Magnesium 1.60 L (1.7-2.3) mg/dL Medications & Allergies - Medications Allergies/Adverse Reactions: Allergies No Known Allergies Allergy (Verified 12/13/21 17:26) Home Medications: Home Medications Medication Instructions Recorded Confirmed Last Taken Type Apixaban [Eliquis] 2.5 mg PO Q12HR #60 tab 09/01/21 12/14/21 12/13/21 Rx AtorvaSTATin [Lipitor] 40 mg PO DAILY 09/01/21 12/14/21 12/14/21 History Gabapentin 100 mg PO BID 09/01/21 12/14/21 12/13/21 History Pantoprazole [Protonix TAB] 40 mg PO QDAY #90 tablet 09/01/21 12/14/21 12/13/21 Rx carvediloL [Coreg] 25 mg PO BID 09/01/21 12/14/21 12/13/21 History traZODone [Desyrel] 100 mg PO QHS 09/01/21 12/14/21 12/13/21 History Venlafaxine [Effexor] 75 mg PO DAILY 11/02/21 12/14/21 12/13/21 History Aspirin EC [Halfprin EC] 81 mg PO QDAY #30 tablet 12/11/21 12/14/21 12/13/21 Rx Clopidogrel [Plavix] 75 mg PO QDAY #90 tablet 12/11/21 12/14/21 12/14/21 Rx Docusate Sodium [Colace CAP] 100 mg PO BID #60 capsule 12/11/21 12/14/21 12/13/21 Rx cilostazoL [Pletal] 50 mg PO BID #60 tab 12/11/21 12/14/21 12/13/21 Rx levoFLOXacin [Levaquin] 750 mg PO QDAY #7 tablet 12/11/21 12/14/21 12/13/21 Rx traMADoL [Ultram] 50 mg PO Q6HR PRN #20 tablet 12/11/21 12/14/21 12/13/21 Rx Active Medications: Generic Name Dose Route Start Last Admin Trade Name Freq PRN Reason Stop Dose Admin Acetaminophen 650 mg 12/13/21 23:13 12/21/21 21:50 Acetaminophen 325 Mg Tab PO 650 mg Q4H PRN Administration Pain MILD(1-3)/Fever >100.5/GONZALEZ Albuterol 2.5 mg 12/13/21 23:13 Albuterol 2.5 Mg/3 Ml Nebu IH Q3HRT PRN Shortness Of Breath Amlodipine Besylate 5 mg 12/19/21 10:00 12/22/21 10:14 Amlodipine 5 Mg Tab PO 5 mg QDAY SRAVAN Administration Apixaban 2.5 mg 12/16/21 22:00 12/22/21 10:14 Apixaban 2.5 Mg Tab PO 2.5 mg Q12HR SRAVAN Administration Protocol Atorvastatin Calcium 40 mg 12/14/21 10:00 12/22/21 10:14 Atorvastatin 40 Mg Tab PO 40 mg DAILY SRAVAN Administration Cilostazol 50 mg 12/14/21 10:00 12/22/21 10:13 Cilostazol 100 Mg Tab PO 50 mg BID SRAVAN Administration Clopidogrel Bisulfate 75 mg 12/14/21 10:00 12/22/21 10:14 Clopidogrel 75 Mg Tab PO 75 mg QDAY SRAVAN Administration Docusate Sodium 100 mg 12/22/21 10:00 12/22/21 10:13 Docusate Sodium 100 Mg Cap PO 100 mg BID SRAVAN Administration Gabapentin 100 mg 12/19/21 10:00 12/22/21 10:12 Gabapentin 100 Mg Cap PO 100 mg BID SRAVAN Administration Hydralazine HCl 10 mg 12/17/21 14:23 12/20/21 18:09 Hydralazine 20 Mg/1 Ml Inj IV 10 mg Q4H PRN Administration Hypertension Cefepime HCl 2 gm in 100 mls @ 200 mls/hr 12/18/21 22:00 12/22/21 10:12 Cefepime/Ns 2 Gm/100 Ml IV 01/05/22 22:29 200 mls/hr Q12HR SRAVAN Administration Protocol Vancomycin HCl 1,250 mg/ 275 mls @ 166.667 mls/hr 12/21/21 06:00 12/22/21 05:21 Sodium Chloride IV 166.667 mls/hr Q24H SRAVAN Administration Morphine Sulfate 2 mg 12/13/21 23:13 12/22/21 12:48 Morphine 2 Mg/1 Ml Inj IV 2 mg Q4H PRN Administration Pain, Moderate (4-6) Morphine Sulfate 4 mg 12/13/21 23:13 12/22/21 05:21 Morphine 4 Mg/1 Ml Inj IV 4 mg Q4H PRN Administration Pain , Severe (7-10) Naloxone HCl 0.1 mg 12/14/21 15:02 Naloxone 0.4 Mg/1 Ml Inj IV Q2MIN PRN Res Rate </= 8 or 02 SAT < 92% Ondansetron HCl 4 mg 12/14/21 15:02 12/22/21 12:49 Ondansetron 4 Mg/2 Ml Inj IV 4 mg Q8H PRN Administration Nausea And Vomiting Pantoprazole Sodium 40 mg 12/14/21 16:30 12/22/21 08:30 Pantoprazole 40 Mg Tab PO 40 mg BIDAC SRAVAN Administration Senna 17.2 mg 12/22/21 22:00 Sennosides 8.6 Mg Tab PO QHS SRAVAN Sodium Chloride 10 ml 12/13/21 23:13 12/18/21 09:54 Sodium Chloride 0.9% 10 Ml Flush Syringe IV 10 ml PRN PRN Administration LINE FLUSH Trazodone HCl 50 mg 12/19/21 22:00 12/21/21 21:45 Trazodone 50 Mg Tab PO 50 mg QHS SRAVAN Administration Venlafaxine HCl 75 mg 12/17/21 10:00 12/22/21 10:14 Venlafaxine 75 Mg Tab PO 75 mg DAILY SRAVAN Administration
[2021-12-22] MEDS: traZODone 50 MG TAB PO SCH (22:41)
[2021-12-22] MEDS: SENNOSIDES 8.6 MG TAB PO SCH (22:41)
[2021-12-23] MEDS: MORPHINE 4 MG/1 ML INJ IV PRN ×4 (06:40→22:13)
[2021-12-23] MEDS: ONDANSETRON 4 MG/2 ML INJ IV PRN (06:40)
[2021-12-23] MEDS: VANCOMYCIN 1,250 MG in SODIUM CHLORIDE 0.9% 250ML 250 ML IV SCH (06:40)
[2021-12-23 07:17] LABS: BUN/Creatinine Ratio 20; Blood Urea Nitrogen 12 mg/dL (7-17); Calcium 7.2 mg/dL (8.4-10.2); Hemolysis Index 6
[2021-12-23] MEDS ORDERED: MAGNESIUM SULFATE 2 GM/50 ML BAG IV ONE (08:00)
[2021-12-23] MEDS ORDERED: POTASSIUM CHLORIDE ER 20 MEQ TAB PO ONE (08:00)
[2021-12-23] MEDS: VENLAFAXINE 75 MG TAB PO SCH (10:31)
[2021-12-23] MEDS: CEFEPIME/NS 2 GM/100 ML 2 GM/100 ML BAG IV SCH ×2 (10:31→22:11)
[2021-12-23] MEDS: GABAPENTIN 100 MG CAP PO SCH ×2 (10:32→22:12)
[2021-12-23] MEDS: CILOSTAZOL 100 MG TAB PO SCH ×2 (10:32→22:12)
[2021-12-23] MEDS: APIXABAN 2.5 MG TAB PO SCH ×2 (10:32→22:12)
[2021-12-23] MEDS: DOCUSATE SODIUM 100 MG CAP PO SCH ×2 (10:32→22:12)
[2021-12-23] MEDS: amLODIPine 5 MG TAB PO SCH (10:32)
[2021-12-23] MEDS: CLOPIDOGREL 75 MG TAB PO SCH (10:32)
[2021-12-23] MEDS: PANTOPRAZOLE 40 MG TAB PO SCH ×2 (10:33→16:01)
--- NOTE | 2021-12-23 12:12 | Progress Note ---
Assessment and Plan Assessment and plan: This is a 56-year-old female with known history of CAD, HTN, HLD, and severe PVD s/p femoral-popliteal bypass surgery complicated with compartment syndrome required fasciotomy and right leg revascularization. Patient then developed occlusive bypass graft infection s/p excision of left common femoral to left below-knee popliteal artery bypass graft. Patient was recently discharged home on 12/11 with [facility], patient presented back in the hospital on 12/13 with acute blood loss anemia secondary to hemorrhage/acute blood loss from home wound VAC. Hospital course to date 12/15: Currently in CCU, decreased urine output reported overnight. We will continue lactated Ringer's. Continue serial H&H. 12/16: patient noted to be anemic and given prbc. repeat post transfusion h/h is 9.10/13.4. Will need fci abx therefore PICC ordered. 12/17: No acute events reported overnight. H&H stable. Transfer to [facility] per vascular request 12/18: Remains stable. Bleeding resolved and H&H remains stable. Awaiting additional wound VAC placement on LLE by wound care. Plan for possible discharge to a rehab facility, case management to arrange. 12/19: Wound VAC malfunctioning this am, saturated dressing noted at the left groin site. Pedal pulses appreciated with a doppler, H&H and VSS remain stable. Wound care contacted for Wound Vac dressing change. Continue PRN analgesia, gabapentin resumed for neuropathy pain. Vascular Surgery is also following. 12/20: S/p emergent angiooplasty, evacuation of left groin hematoma,and Replacement of Wound VAC overnight due to left groin hematoma and bleeding. Patient received 3units of PRBCs and 1unit of FFP. H&H and vital signs stable this am. No s/s of any active bleeding noted. Left groin site and Wound VAC noted with no complications. Patient remains on Pletal, Plavix, and Eliquis per Vascular Surgery. Will continue to trend H&H. Discharge planning to rehab vs LTAC. Case management to arrange 12/21: Remains stable. Left groin site and wound vac remains intact with no complications. Slightly hypertensive this am, will D/C continous IVF continue current antihypertensive therapy. Possible LTAC vs rehab placement, case management to arrange. 12/22: RUTH overnight. Continue current supportive measures. Possible LTAC vs rehab placement, case management to arrange 12/23: Patient continues to show improvement. I did discuss with nurse to keep a record of how much she is eating. Poor wound healing secondary to poor p.o. intake and overall clinical medical condition. Still awaiting placement for appropriate disposition. Vascular surgeon did adjust wound management and treatment with wound VAC now in place Continues there are some granulation tissue is noted. Vascular did bridge all 3 incisions to 1 wound VAC. Continue with PT OT treatment to increase activity Assessment and Plan #Severe Peripheral Vascular Disease #H/o left femoral-popliteal bypass with fasciotomy and Right lower extremity Revascularization #Recent Occlusive Infection s/p excision of left common femoral to left below- knee popliteal artery bypass graft - Extensive PVD history with multiple procedures, was recently discharge home on 12/11 with wound VAC and [facility] - Readmitted 2 days later for LLE hemorrhage - Vascular Surgery Consulted, appreciate recommendations - 12/14 s/p exploration of left groin with open thrombectomy of left SFA, repair of left common femoral artery, coverage of left femoral artery with muscle flap and wound VAC placement - 12/19 s/p emergent angiooplasty, evacuation of left groin hematoma,and Replacement of Wound VAC overnight due to left groin hematoma and bleeding - On pletal, plavix, and Eliquis. Gabapentin resumed - Wound culture from, last admit on 12/04 with Klebsiella, E. coli, Pseudomonas, MRSA, and Enterococcus faecalis - Leukocytosis improved, most likely reactive to recent event - Continue IV Abx- Cefepine and Vancomycin per ID - ID recommendations also noted, plan for long-Term IV Abx- vancomycin 1 g every 24 hours and cefepime 2 g every 12 hours until 01/05/2022 - Case management also on consulted for discharge planning - Wound care also on consult - ID signed off #Acute Blood Loss Anemia 06/21 #Hemorrhage from LLE Wound VAC - Presented with low H&H - s/p 10units of PRBCs and 2FFPs - CT abdomen/pelvis showed small amount of active hemorrhage in the left inguinal region and a large renal hematoma, excessive swelling throughout the entire left leg and 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 - Most likely secondary to above - s/p Left groin exploration and open thrombectomy as described above by Vascular Surgery - s/p emergent angioplasty, evacuation of left groin hematoma,and Replacement of Wound VAC overnight due to left groin hematoma and bleeding - Continue to trend H&H - Transfuse for Hgb less than 7 - On pletal, plavix, and Eliquis per Vascular Surgery #Hypertension #Hyperlipidemia - BP stable - Antihypertensive regimen adjusted - Continue blood pressure monitor per protocol - PRN Hydralazinen to maintain SBP less than 160 #Moderate Protein Calorie Malnutrition - Encourage PO intake - Continue Dietary supplementation - Nutrition consulted #H/o Nicotine Dependence - Patient reported that she has not smoked since November 17 - Smoking cessation education reiterated, patient encourage to remain quit and refrain from smoking #GI/DVT Prophylaxis - PPI- Protonix - On pletal, plavix, and Eliquis #Advance Care Planning - Disease education data, care plan, diagnoses, and prognosis were discussed with patient at the bedside. Patient is a FULL code. Patient acknowledged understanding and agreed with current care plan. - Discharge planning to rehab vs LTAC. Case management to arrange The high probability of a clinically significant, sudden or life threatening deterioration of the [multiple] system(s) required my full and direct attention, intervention and personal management. The aggregate critical care time was [35] minutes. This time is in addition to time spent performing reported procedures but includes the following: [x] Data Review and interpretation [x] Patient assessment and monitoring of vital signs [x] Documentation [x] Medication orders and management Disposition Plan: IMCU Total Time Spent with Patient (Minutes):35 History Interval history: Patient seen and examined resting comfortably no new complain Hospitalist Physical - Physical exam Narrative exam: Narrative exam: General appearance: Present: no acute distress, cachectic - EENT Eyes: Present: PERRL ENT: hearing intact - Neck Neck: Present: normal ROM - Respiratory Respiratory effort: normal Respiratory: bilateral: diminished - Cardiovascular Rhythm: regular Heart Sounds: Present: S1 & S2, palpable pulses dorsalis pedis. Posterior tibialis appreciated. - Extremities Extremities: no ischemia, pulses intact, abnormal (LLE swelling, WoundVac present left thigh wound left calf 1 continues to made left leg area. Wound VAC in place.. Pulses appreciated with a doppler. No complications noted) Extremity abnormal: edema - Peripheral Assessment Left Lower Extremity Edema Type: Pitting Edema Degree: 2+ Capillary Refill: < 3 seconds Skin Temperature: Warm Peripheral Pulses: within normal limits - Abdominal General gastrointestinal: soft, non-distended, normal bowel sounds - Integumentary Integumentary: Present: warm, dry - Psychiatric Psychiatric: appropriate mood/affect, cooperative - Neurologic Neurologic: CNII-XII intact, moves all extremities - Allied Health Allied health notes reviewed: nursing, case management - Constitutional Vitals: Temp Pulse Resp BP Pulse Ox 97.5 F L 92 H 12 164/90 97 12/23/21 04:00 12/23/21 10:32 12/23/21 07:10 12/23/21 10:32 12/23/21 06:00 General appearance: Present: no acute distress Results - Labs CBC & Chem 7: 12/22/21 05:30 12/23/21 06:30 Labs: Laboratory Last Values WBC 7.0 K/mm3 (4.5-11.0) 12/22/21 05:30 RBC 2.56 M/mm3 (3.65-5.03) L 12/22/21 05:30 Hgb 7.4 gm/dl (10.1-14.3) L 12/22/21 05:30 Hct 21.9 % (30.3-42.9) L 12/22/21 05:30 MCV 86 fl (79-97) 12/22/21 05:30 MCH 29 pg (28-32) 12/22/21 05:30 MCHC 34 % (30-34) 12/22/21 05:30 RDW 21.1 % (13.2-15.2) H 12/22/21 05:30 Plt Count 240 K/mm3 (140-440) 12/22/21 05:30 Lymph % (Auto) 15.4 % (13.4-35.0) 12/17/21 05:00 [place] % (Auto) 8.9 % (0.0-7.3) H 12/17/21 05:00 Eos % (Auto) 1.7 % (0.0-4.3) 12/17/21 05:00 Baso % (Auto) 1.1 % (0.0-1.8) 12/17/21 05:00 Lymph # (Auto) 1.3 K/mm3 (1.2-5.4) 12/17/21 05:00 [place] # (Auto) 0.7 K/mm3 (0.0-0.8) 12/17/21 05:00 Eos # (Auto) 0.1 K/mm3 (0.0-0.4) 12/17/21 05:00 Baso # (Auto) 0.1 K/mm3 (0.0-0.1) 12/17/21 05:00 Seg Neutrophils % 72.9 % (40.0-70.0) H 12/17/21 05:00 Seg Neutrophils # 6.0 K/mm3 (1.8-7.7) 12/17/21 05:00 PT 16.0 Sec. (12.2-14.9) H 12/21/21 04:43 INR 1.12 (0.87-1.13) 12/21/21 04:43 APTT 38.3 Sec. (24.2-36.6) H 12/21/21 04:43 Fibrinogen 399 mg/dl (211-480) 12/19/21 12:50 Heparin Anti-Xa Level 0.66 U.I./ml (0.3-0.7) 12/14/21 22:43 Sodium 137 mmol/L (137-145) 12/23/21 06:30 Potassium 3.4 mmol/L (3.6-5.0) L 12/23/21 06:30 Chloride 104.9 mmol/L (98-107) 12/23/21 06:30 Carbon Dioxide 27 mmol/L (22-30) 12/23/21 06:30 Anion Gap 9 mmol/L 12/23/21 06:30 BUN 12 mg/dL (7-17) 12/23/21 06:30 Creatinine 0.6 mg/dL (0.6-1.2) 12/23/21 06:30 Estimated GFR > 60 ml/min 12/23/21 06:30 BUN/Creatinine Ratio 20 % 12/23/21 06:30 Glucose 80 mg/dL (65-100) 12/23/21 06:30 Calcium 7.2 mg/dL (8.4-10.2) L 12/23/21 06:30 Phosphorus 2.60 mg/dL (2.5-4.5) 12/23/21 06:30 Magnesium 1.80 mg/dL (1.7-2.3) 12/23/21 06:30 Total Bilirubin 0.30 mg/dL (0.1-1.2) 12/13/21 18:25 AST 13 units/L (5-40) 12/13/21 18:25 ALT < 5 units/L (7-56) L 12/13/21 18:25 Alkaline Phosphatase 118 units/L (35-129) 12/13/21 18:25 Total Protein 4.6 g/dL (6.3-8.2) L 12/13/21 18:25 Albumin 2.1 g/dL (3.9-5) L 12/13/21 18:25 Albumin/Globulin Ratio 0.8 % 12/13/21 18:25 Vancomycin Trough 9.8 ug/mL (5.0-20.0) 12/19/21 04:29 Blood Type O POSITIVE 12/19/21 17:25 Antibody Screen Negative 12/19/21 17:25 Crossmatch See Detail 12/19/21 17:25 Victor/IV: Voiding Method External Female Catheter Active Medications - Current Medications Current Medications: Generic Name Dose Route Start Last Admin Trade Name Freq PRN Reason Stop Dose Admin Acetaminophen 650 mg 12/13/21 23:13 12/21/21 21:50 Acetaminophen 325 Mg Tab PO 650 mg Q4H PRN Administration Pain MILD(1-3)/Fever >100.5/GONZALEZ Albuterol 2.5 mg 12/13/21 23:13 Albuterol 2.5 Mg/3 Ml Nebu IH Q3HRT PRN Shortness Of Breath Amlodipine Besylate 5 mg 12/19/21 10:00 12/23/21 10:32 Amlodipine 5 Mg Tab PO 5 mg QDAY SRAVAN Administration Apixaban 2.5 mg 12/16/21 22:00 12/23/21 10:32 Apixaban 2.5 Mg Tab PO 2.5 mg Q12HR SRAVAN Administration Protocol Atorvastatin Calcium 40 mg 12/14/21 10:00 12/23/21 10:32 Atorvastatin 40 Mg Tab PO 40 mg DAILY SRAVAN Administration Cilostazol 50 mg 12/14/21 10:00 12/23/21 10:32 Cilostazol 100 Mg Tab PO 50 mg BID SRAVAN Administration Clopidogrel Bisulfate 75 mg 12/14/21 10:00 12/23/21 10:32 Clopidogrel 75 Mg Tab PO 75 mg QDAY SRAVAN Administration Docusate Sodium 100 mg 12/22/21 10:00 12/23/21 10:32 Docusate Sodium 100 Mg Cap PO 100 mg BID SRAVAN Administration Gabapentin 100 mg 12/19/21 10:00 12/23/21 10:32 Gabapentin 100 Mg Cap PO 100 mg BID SRAVAN Administration Hydralazine HCl 10 mg 12/17/21 14:23 12/20/21 18:09 Hydralazine 20 Mg/1 Ml Inj IV 10 mg Q4H PRN Administration Hypertension Cefepime HCl 2 gm in 100 mls @ 200 mls/hr 12/18/21 22:00 12/23/21 10:31 Cefepime/Ns 2 Gm/100 Ml IV 01/05/22 22:29 200 mls/hr Q12HR SRAVAN Administration Protocol Vancomycin HCl 1,250 mg/ 275 mls @ 166.667 mls/hr 12/21/21 06:00 12/23/21 06:40 Sodium Chloride IV 166.667 mls/hr Q24H SRAVAN Administration Morphine Sulfate 2 mg 12/13/21 23:13 12/22/21 12:48 Morphine 2 Mg/1 Ml Inj IV 2 mg Q4H PRN Administration Pain, Moderate (4-6) Morphine Sulfate 4 mg 12/13/21 23:13 12/23/21 06:40 Morphine 4 Mg/1 Ml Inj IV 4 mg Q4H PRN Administration Pain , Severe (7-10) Naloxone HCl 0.1 mg 12/14/21 15:02 Naloxone 0.4 Mg/1 Ml Inj IV Q2MIN PRN Res Rate </= 8 or 02 SAT < 92% Ondansetron HCl 4 mg 12/14/21 15:02 12/23/21 06:40 Ondansetron 4 Mg/2 Ml Inj IV 4 mg Q8H PRN Administration Nausea And Vomiting Pantoprazole Sodium 40 mg 12/14/21 16:30 12/23/21 10:33 Pantoprazole 40 Mg Tab PO 40 mg BIDAC SRAVAN Administration Senna 17.2 mg 12/22/21 22:00 12/22/21 22:41 Sennosides 8.6 Mg Tab PO 17.2 mg QHS SRAVAN Administration Sodium Chloride 10 ml 12/13/21 23:13 12/18/21 09:54 Sodium Chloride 0.9% 10 Ml Flush Syringe IV 10 ml PRN PRN Administration LINE FLUSH Trazodone HCl 50 mg 12/19/21 22:00 12/22/21 22:41 Trazodone 50 Mg Tab PO 50 mg QHS SRAVAN Administration Venlafaxine HCl 75 mg 12/17/21 10:00 12/23/21 10:31 Venlafaxine 75 Mg Tab PO 75 mg DAILY SRAVAN Administration Nutrition/Malnutrition Assess - Dietary Evaluation Nutrition/Malnutrition Findings: Nutrition Notes Start: 12/14/21 12:00 Freq: Status: Active Protocol: Document 12/21/21 11:08 MERARI (Rec: 12/21/21 11:48 MERARI [id number]) Nutrition Notes Initial or Follow up Reassessment Current Diagnosis Hypertension,Malnutrition, Hyperlipidemia Other Pertinent Diagnosis PVD s/p L-FP Bypass, L-FP Bypass Occlusion, L-Groin Infection, L-ASSEMBLY RIVETER Injury Current Diet Regular Diet (since 12/16), D Suppl (since 12/15). Labs/Tests 12/21: Cl 109.2, Ca 7.5, Mg 1. 6. Pertinent Medications 12/21: Nutritionally unremarkable. Height 5 ft 2 in Weight 40.823 kg [place] Body Weight (kg) 50.00 BMI 16.5 Weight change and time frame No body weight change reported in 1 week. Weight Status Underweight Subjective/Other Information RD consult for malnutrition assessment. Pt's PO intake has imroved, but still Poor (50%) and fairly tolerated, Pt is also taking her dietary supplements , accvording to RN over the phone. Pt is on Room Air, O2 saturation @ 100%, according to Physical Assessment History notes. Pt has missing teeth, according to Physical Assessment History notes. Pt presents L-LE pitting edema 3+, according to Physical Assessment History notes. Pt's last BM was on 12/17, according to Physical Assessment History notes. Procedure on 12/20: Emergent angioplasty, evacuation of L- groin hematoma, and WoundVac replacement, well tolerated, according to Progress notes. Plans for discharge to LTAC or Rehab on 12/21, according to Progress notes. Percent of energy/protein needs met: Prescribed Regular Diet provides for energy/protein needs (2,289 Kcal/89 g) during LOS; additionally, Dietary Supplements will compensate for possible poor or insufficient PO intake of meals with 1,240 Kcal and 65 g of protein. Burn Absent Trauma Absent GI Symptoms None Food Allergy No Skin Integrity/Comment Several L-LE wounds. Current % PO Poor (25-49%) Minimum of two criteria No Fluid Accumulation N/A Reduced Land Classifier Strength N/A (non-severe) Protein-Calorie Malnutrition N\A #2 Nutrition Diagnosis Increased nutrient needs ( specify in comment below) Comments: Protein to support wound healing and compensate for blood loss. Procedure on 12/20: Emergent angioplasty, evacuation of L- groin hematoma, and WoundVac replacement, well tolerated, according to Progress notes. Diagnosis Progress(for reassessment Continues documentation) #1 Nutrition Diagnosis Underweight Diagnosis Progress(for reassessment Continues documentation) Is patient on ventilator? No Is Patient Ambulatory and/or Out of Bed No REE-([place]. Jeor-confined to bed) 1134.852 Kcal/Kg value to use for calculation 30 Approximate Energy Requirements Using 1225 kcal/Kg Calculation Used for Recommendations Kcal/kg Additional Notes Protein: 1.5-2 g/Kg ABW; 62-84 g/day. Fluids: 1 ml/Kcal, or as per MD. Nutrition Intervention Change Diet Order: Continue Regular Diet as tolerated. Add Supplement/Snack (indicate name/kcal Continue 8 fl oz Ensure Enlive /protein ) ; TID. Start 28.8 g pkt Jeremy; BID. Provides kCal: 1,240 Provides Protein (gm) 65 Goal #1 Compensate, through dietary supplementation, for possible poor or insufficient PO intake of meals during LOS. Goal #2 Support, through dietary supplementation, wound healing processes during LOS. Goal #3 Adjust the dietary intervention to better serve Pt's needs and clinical conditions during LOS. Follow-Up By: 12/28/21 Additional Comments Continue monitoring food tolerance, %PO intake of meals , dietary supplements, and BM.
--- NOTE | 2021-12-23 14:14 | Progress Note ---
Assessment and Plan Patient continues to do well overall. Needs to increase her nutritional intake per the dietitian recommendations. Increase activity with physical therapy. Can discharge to LTAC, from a vascular surgery standpoint, when medically cleared. Subjective Date of service: 12/23/21 Principal diagnosis: Acute arterial bleeding Interval history: Patient complaining of some left groin pain but no other additional complaints at this time. Objective - Constitutional Vitals: Vital Signs - 12hr 12/23/21 12/23/21 12/23/21 03:00 03:55 04:00 Temperature 97.5 F L Pulse Rate 90 86 89 Pulse Rate [ 90 From Monitor] Respiratory 10 L 8 L Rate Respiratory Rate [Left Leg] Blood Pressure 117/65 124/62 O2 Sat by Pulse 95 97 Oximetry 12/23/21 12/23/21 12/23/21 05:00 06:00 06:30 Temperature Pulse Rate 89 87 Pulse Rate [ From Monitor] Respiratory 8 L 8 L Rate Respiratory 20 Rate [Left Leg] Blood Pressure 128/61 140/65 O2 Sat by Pulse 96 97 Oximetry 12/23/21 12/23/21 12/23/21 06:40 07:10 10:32 Temperature Pulse Rate 92 H Pulse Rate [ From Monitor] Respiratory 13 12 Rate Respiratory Rate [Left Leg] Blood Pressure 164/90 O2 Sat by Pulse Oximetry 12/23/21 13:44 Temperature Pulse Rate Pulse Rate [ From Monitor] Respiratory 14 Rate Respiratory Rate [Left Leg] Blood Pressure O2 Sat by Pulse Oximetry General appearance: Present: no acute distress - Respiratory Respiratory effort: normal - Cardiovascular Rhythm: regular Extremities: pulses intact (Palpable left dorsalis pedis pulse), abnormal (Left lower extremity wound VAC is in place with adequate seal) - Labs CBC & Chem 7: 12/22/21 05:30 12/23/21 06:30 Labs: Abnormal lab results 12/23/21 Range/Units 06:30 Potassium 3.4 L (3.6-5.0) mmol/L Calcium 7.2 L (8.4-10.2) mg/dL Medications & Allergies - Medications Allergies/Adverse Reactions: Allergies No Known Allergies Allergy (Verified 12/13/21 17:26) Home Medications: Home Medications Medication Instructions Recorded Confirmed Last Taken Type Apixaban [Eliquis] 2.5 mg PO Q12HR #60 tab 09/01/21 12/14/2122 Rx AtorvaSTATin [Lipitor] 40 mg PO DAILY 09/01/21 12/14/21 12/14/21 History Gabapentin 100 mg PO BID 09/01/21 12/14/21 12/13/21 History Pantoprazole [Protonix TAB] 40 mg PO QDAY #90 tablet 09/01/21 12/14/21 12/13/21 Rx carvediloL [Coreg] 25 mg PO BID 09/01/21 12/14/21 12/13/21 History traZODone [Desyrel] 100 mg PO QHS 09/01/21 12/14/21 12/13/21 History Venlafaxine [Effexor] 75 mg PO DAILY 11/02/21 12/14/21 12/13/21 History Aspirin EC [Halfprin EC] 81 mg PO QDAY #30 tablet 12/11/21 12/14/21 12/13/21 Rx Clopidogrel [Plavix] 75 mg PO QDAY #90 tablet 12/11/21 12/14/21 12/14/21 Rx Docusate Sodium [Colace CAP] 100 mg PO BID #60 capsule 12/11/21 12/14/21 12/13/21 Rx cilostazoL [Pletal] 50 mg PO BID #60 tab 12/11/21 12/14/21 12/13/21 Rx levoFLOXacin [Levaquin] 750 mg PO QDAY #7 tablet 12/11/21 12/14/21 12/13/21 Rx traMADoL [Ultram] 50 mg PO Q6HR PRN #20 tablet 12/11/21 12/14/21 12/13/21 Rx Active Medications: Generic Name Dose Route Start Last Admin Trade Name Freq PRN Reason Stop Dose Admin Acetaminophen 650 mg 12/13/21 23:13 12/21/21 21:50 Acetaminophen 325 Mg Tab PO 650 mg Q4H PRN Administration Pain MILD(1-3)/Fever >100.5/GONZALEZ Albuterol 2.5 mg 12/13/21 23:13 Albuterol 2.5 Mg/3 Ml Nebu IH Q3HRT PRN Shortness Of Breath Amlodipine Besylate 5 mg 12/19/21 10:00 12/23/21 10:32 Amlodipine 5 Mg Tab PO 5 mg QDAY SRAVAN Administration Apixaban 2.5 mg 12/16/21 22:00 12/23/21 10:32 Apixaban 2.5 Mg Tab PO 2.5 mg Q12HR SRAVAN Administration Protocol Atorvastatin Calcium 40 mg 12/14/21 10:00 12/23/21 10:32 Atorvastatin 40 Mg Tab PO 40 mg DAILY SRAVAN Administration Cilostazol 50 mg 12/14/21 10:00 12/23/21 10:32 Cilostazol 100 Mg Tab PO 50 mg BID SRAVAN Administration Clopidogrel Bisulfate 75 mg 12/14/21 10:00 12/23/21 10:32 Clopidogrel 75 Mg Tab PO 75 mg QDAY SRAVAN Administration Docusate Sodium 100 mg 12/22/21 10:00 12/23/21 10:32 Docusate Sodium 100 Mg Cap PO 100 mg BID SRAVAN Administration Gabapentin 100 mg 12/19/21 10:00 12/23/21 10:32 Gabapentin 100 Mg Cap PO 100 mg BID SRAVAN Administration Hydralazine HCl 10 mg 12/17/21 14:23 12/20/21 18:09 Hydralazine 20 Mg/1 Ml Inj IV 10 mg Q4H PRN Administration Hypertension Cefepime HCl 2 gm in 100 mls @ 200 mls/hr 12/18/21 22:00 12/23/21 10:31 Cefepime/Ns 2 Gm/100 Ml IV 01/05/22 22:29 200 mls/hr Q12HR SRAVAN Administration Protocol Vancomycin HCl 1,250 mg/ 275 mls @ 166.667 mls/hr 12/21/21 06:00 12/23/21 06:40 Sodium Chloride IV 166.667 mls/hr Q24H SRAVAN Administration Morphine Sulfate 2 mg 12/13/21 23:13 12/22/21 12:48 Morphine 2 Mg/1 Ml Inj IV 2 mg Q4H PRN Administration Pain, Moderate (4-6) Morphine Sulfate 4 mg 12/13/21 23:13 12/23/21 13:15 Morphine 4 Mg/1 Ml Inj IV 4 mg Q4H PRN Administration Pain , Severe (7-10) Naloxone HCl 0.1 mg 12/14/21 15:02 Naloxone 0.4 Mg/1 Ml Inj IV Q2MIN PRN Res Rate </= 8 or 02 SAT < 92% Ondansetron HCl 4 mg 12/14/21 15:02 12/23/21 06:40 Ondansetron 4 Mg/2 Ml Inj IV 4 mg Q8H PRN Administration Nausea And Vomiting Pantoprazole Sodium 40 mg 12/14/21 16:30 12/23/21 10:33 Pantoprazole 40 Mg Tab PO 40 mg BIDAC SRAVAN Administration Senna 17.2 mg 12/22/21 22:00 12/22/21 22:41 Sennosides 8.6 Mg Tab PO 17.2 mg QHS SRAVAN Administration Sodium Chloride 10 ml 12/13/21 23:13 12/18/21 09:54 Sodium Chloride 0.9% 10 Ml Flush Syringe IV 10 ml PRN PRN Administration LINE FLUSH Trazodone HCl 50 mg 12/19/21 22:00 12/22/21 22:41 Trazodone 50 Mg Tab PO 50 mg QHS SRAVAN Administration Venlafaxine HCl 75 mg 12/17/21 10:00 12/23/21 10:31 Venlafaxine 75 Mg Tab PO 75 mg DAILY SRAVAN Administration
[2021-12-23] MEDS: traZODone 50 MG TAB PO SCH (22:12)
[2021-12-23] MEDS: SENNOSIDES 8.6 MG TAB PO SCH (22:13)
[2021-12-24] MEDS: VANCOMYCIN 1,250 MG in SODIUM CHLORIDE 0.9% 250ML 250 ML IV SCH (06:09)
[2021-12-24] MEDS: CILOSTAZOL 100 MG TAB PO SCH ×2 (09:44→21:45)
[2021-12-24] MEDS: amLODIPine 5 MG TAB PO SCH (09:44)
[2021-12-24] MEDS: CEFEPIME/NS 2 GM/100 ML 2 GM/100 ML BAG IV SCH ×2 (09:44→22:01)
[2021-12-24] MEDS: PANTOPRAZOLE 40 MG TAB PO SCH ×2 (09:45→16:30)
[2021-12-24] MEDS: VENLAFAXINE 75 MG TAB PO SCH (09:45)
[2021-12-24] MEDS: GABAPENTIN 100 MG CAP PO SCH ×2 (09:45→21:44)
[2021-12-24] MEDS: DOCUSATE SODIUM 100 MG CAP PO SCH ×2 (09:45→21:45)
[2021-12-24] MEDS: CLOPIDOGREL 75 MG TAB PO SCH (09:45)
[2021-12-24] MEDS: APIXABAN 2.5 MG TAB PO SCH ×2 (09:45→21:45)
--- NOTE | 2021-12-24 10:16 | Progress Note ---
Assessment and Plan Assessment and plan: This is a 56-year-old female with known history of CAD, HTN, HLD, and severe PVD s/p femoral-popliteal bypass surgery complicated with compartment syndrome required fasciotomy and right leg revascularization. Patient then developed occlusive bypass graft infection s/p excision of left common femoral to left below-knee popliteal artery bypass graft. Patient was recently discharged home on 12/11 with [facility], patient presented back in the hospital on 12/13 with acute blood loss anemia secondary to hemorrhage/acute blood loss from home wound VAC. Hospital course to date 12/15: Currently in CCU, decreased urine output reported overnight. We will continue lactated Ringer's. Continue serial H&H. 12/16: patient noted to be anemic and given prbc. repeat post transfusion h/h is 9.10/13.4. Will need chcf abx therefore PICC ordered. 12/17: No acute events reported overnight. H&H stable. Transfer to [facility] per vascular request 12/18: Remains stable. Bleeding resolved and H&H remains stable. Awaiting additional wound VAC placement on LLE by wound care. Plan for possible discharge to a rehab facility, case management to arrange. 12/19: Wound VAC malfunctioning this am, saturated dressing noted at the left groin site. Pedal pulses appreciated with a doppler, H&H and VSS remain stable. Wound care contacted for Wound Vac dressing change. Continue PRN analgesia, gabapentin resumed for neuropathy pain. Vascular Surgery is also following. 12/20: S/p emergent angiooplasty, evacuation of left groin hematoma,and Replacement of Wound VAC overnight due to left groin hematoma and bleeding. Patient received 3units of PRBCs and 1unit of FFP. H&H and vital signs stable this am. No s/s of any active bleeding noted. Left groin site and Wound VAC noted with no complications. Patient remains on Pletal, Plavix, and Eliquis per Vascular Surgery. Will continue to trend H&H. Discharge planning to rehab vs LTAC. Case management to arrange 12/21: Remains stable. Left groin site and wound vac remains intact with no complications. Slightly hypertensive this am, will D/C continous IVF continue current antihypertensive therapy. Possible LTAC vs rehab placement, case management to arrange. 12/22: RUTH overnight. Continue current supportive measures. Possible LTAC vs rehab placement, case management to arrange 12/23: Patient continues to show improvement. I did discuss with nurse to keep a record of how much she is eating. Poor wound healing secondary to poor p.o. intake and overall clinical medical condition. Still awaiting placement for appropriate disposition. Vascular surgeon did adjust wound management and treatment with wound VAC now in place Continues there are some granulation tissue is noted. Vascular did bridge all 3 incisions to 1 wound VAC. Continue with PT OT treatment to increase activity 12/24: Continue supportive care, replace k, continue to encourage improved PO INTAKE, Awaiting placement for continued wound healing, remains at increase risk of limb loss if no improvement Assessment and Plan #Severe Peripheral Vascular Disease #H/o left femoral-popliteal bypass with fasciotomy and Right lower extremity Revascularization #Recent Occlusive Infection s/p excision of left common femoral to left below- knee popliteal artery bypass graft - Extensive PVD history with multiple procedures, was recently discharge home on 12/11 with wound VAC and [facility] - Readmitted 2 days later for LLE hemorrhage - Vascular Surgery Consulted, appreciate recommendations - 12/14 s/p exploration of left groin with open thrombectomy of left SFA, repair of left common femoral artery, coverage of left femoral artery with muscle flap and wound VAC placement - 12/19 s/p emergent angiooplasty, evacuation of left groin hematoma,and Replacement of Wound VAC overnight due to left groin hematoma and bleeding - On pletal, plavix, and Eliquis. Gabapentin resumed - Wound culture from, last admit on 12/04 with Klebsiella, E. coli, Pseudomonas, MRSA, and Enterococcus faecalis - Leukocytosis improved, most likely reactive to recent event - Continue IV Abx- Cefepine and Vancomycin per ID - ID recommendations also noted, plan for long-Term IV Abx- vancomycin 1 g every 24 hours and cefepime 2 g every 12 hours until 01/05/2022 - Case management also on consulted for discharge planning - Wound care also on consult - ID signed off #Acute Blood Loss Anemia 06/21 #Hemorrhage from LLE Wound VAC - Presented with low H&H - s/p 10units of PRBCs and 2FFPs - CT abdomen/pelvis showed small amount of active hemorrhage in the left inguinal region and a large renal hematoma, excessive swelling throughout the entire left leg and 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 - Most likely secondary to above - s/p Left groin exploration and open thrombectomy as described above by Vascular Surgery - s/p emergent angioplasty, evacuation of left groin hematoma,and Replacement of Wound VAC overnight due to left groin hematoma and bleeding - Continue to trend H&H - Transfuse for Hgb less than 7 - On pletal, plavix, and Eliquis per Vascular Surgery #Hypertension #Hypokalemia #Hyperlipidemia - BP stable - Antihypertensive regimen adjusted - Continue blood pressure monitor per protocol - PRN Hydralazinen to maintain SBP less than 160 #Moderate Protein Calorie Malnutrition - Encourage PO intake - Continue Dietary supplementation - Nutrition consulted #H/o Nicotine Dependence - Patient reported that she has not smoked since November 17 - Smoking cessation education reiterated, patient encourage to remain quit and refrain from smoking #GI/DVT Prophylaxis - PPI- Protonix - On pletal, plavix, and Eliquis #Advance Care Planning - Disease education data, care plan, diagnoses, and prognosis were discussed with patient at the bedside. Patient is a FULL code. Patient acknowledged understanding and agreed with current care plan. - Discharge planning to rehab vs LTAC. Case management to arrange The high probability of a clinically significant, sudden or life threatening deterioration of the [multiple] system(s) required my full and direct attention, intervention and personal management. The aggregate critical care time was [35] minutes. This time is in addition to time spent performing reported procedures but includes the following: [x] Data Review and interpretation [x] Patient assessment and monitoring of vital signs [x] Documentation [x] Medication orders and management Disposition Plan: IMCU Total Time Spent with Patient (Minutes):35 History Interval history: Patient seen and examined resting comfortably no new complain. States that she is tolerating her diet Hospitalist Physical - Physical exam Narrative exam: Narrative exam: General appearance: Present: no acute distress, cachectic - EENT Eyes: Present: PERRL ENT: hearing intact - Neck Neck: Present: normal ROM - Respiratory Respiratory effort: normal Respiratory: bilateral: diminished - Cardiovascular Rhythm: regular Heart Sounds: Present: S1 & S2, palpable pulses dorsalis pedis. Posterior tibialis appreciated. - Extremities Extremities: no ischemia, pulses intact, abnormal (LLE swelling, WoundVac present left thigh wound left calf 1 continues to made left leg area. Wound VAC in place.. Pulses appreciated with a doppler. No complications noted) Extremity abnormal: edema - Peripheral Assessment Left Lower Extremity Edema Type: Pitting Edema Degree: 2+ Capillary Refill: < 3 seconds Skin Temperature: Warm Peripheral Pulses: within normal limits - Abdominal General gastrointestinal: soft, non-distended, normal bowel sounds - Integumentary Integumentary: Present: warm, dry - Psychiatric Psychiatric: appropriate mood/affect, cooperative - Neurologic Neurologic: CNII-XII intact, moves all extremities - Allied Health Allied health notes reviewed: nursing, case management - Constitutional Vitals: Temp Pulse Resp BP Pulse Ox 98.2 F 85 11 L 150/84 94 12/24/21 04:00 12/24/21 09:44 12/24/21 06:00 12/24/21 09:44 12/24/21 06:00 General appearance: Present: no acute distress Results - Labs CBC & Chem 7: 12/22/21 05:30 12/23/21 06:30 Labs: Laboratory Last Values WBC 7.0 K/mm3 (4.5-11.0) 12/22/21 05:30 RBC 2.56 M/mm3 (3.65-5.03) L 12/22/21 05:30 Hgb 7.4 gm/dl (10.1-14.3) L 12/22/21 05:30 Hct 21.9 % (30.3-42.9) L 12/22/21 05:30 MCV 86 fl (79-97) 12/22/21 05:30 MCH 29 pg (28-32) 12/22/21 05:30 MCHC 34 % (30-34) 12/22/21 05:30 RDW 21.1 % (13.2-15.2) H 12/22/21 05:30 Plt Count 240 K/mm3 (140-440) 12/22/21 05:30 Lymph % (Auto) 15.4 % (13.4-35.0) 12/17/21 05:00 [place] % (Auto) 8.9 % (0.0-7.3) H 12/17/21 05:00 Eos % (Auto) 1.7 % (0.0-4.3) 12/17/21 05:00 Baso % (Auto) 1.1 % (0.0-1.8) 12/17/21 05:00 Lymph # (Auto) 1.3 K/mm3 (1.2-5.4) 12/17/21 05:00 [place] # (Auto) 0.7 K/mm3 (0.0-0.8) 12/17/21 05:00 Eos # (Auto) 0.1 K/mm3 (0.0-0.4) 12/17/21 05:00 Baso # (Auto) 0.1 K/mm3 (0.0-0.1) 12/17/21 05:00 Seg Neutrophils % 72.9 % (40.0-70.0) H 12/17/21 05:00 Seg Neutrophils # 6.0 K/mm3 (1.8-7.7) 12/17/21 05:00 PT 16.0 Sec. (12.2-14.9) H 12/21/21 04:43 INR 1.12 (0.87-1.13) 12/21/21 04:43 APTT 38.3 Sec. (24.2-36.6) H 12/21/21 04:43 Fibrinogen 399 mg/dl (211-480) 12/19/21 12:50 Heparin Anti-Xa Level 0.66 U.I./ml (0.3-0.7) 12/14/21 22:43 Sodium 137 mmol/L (137-145) 12/23/21 06:30 Potassium 3.4 mmol/L (3.6-5.0) L 12/23/21 06:30 Chloride 104.9 mmol/L (98-107) 12/23/21 06:30 Carbon Dioxide 27 mmol/L (22-30) 12/23/21 06:30 Anion Gap 9 mmol/L 12/23/21 06:30 BUN 12 mg/dL (7-17) 12/23/21 06:30 Creatinine 0.6 mg/dL (0.6-1.2) 12/23/21 06:30 Estimated GFR > 60 ml/min 12/23/21 06:30 BUN/Creatinine Ratio 20 % 12/23/21 06:30 Glucose 80 mg/dL (65-100) 12/23/21 06:30 Calcium 7.2 mg/dL (8.4-10.2) L 12/23/21 06:30 Phosphorus 2.60 mg/dL (2.5-4.5) 12/23/21 06:30 Magnesium 1.80 mg/dL (1.7-2.3) 12/23/21 06:30 Total Bilirubin 0.30 mg/dL (0.1-1.2) 12/13/21 18:25 AST 13 units/L (5-40) 12/13/21 18:25 ALT < 5 units/L (7-56) L 12/13/21 18:25 Alkaline Phosphatase 118 units/L (35-129) 12/13/21 18:25 Total Protein 4.6 g/dL (6.3-8.2) L 12/13/21 18:25 Albumin 2.1 g/dL (3.9-5) L 12/13/21 18:25 Albumin/Globulin Ratio 0.8 % 12/13/21 18:25 Vancomycin Trough 9.8 ug/mL (5.0-20.0) 12/19/21 04:29 Blood Type O POSITIVE 12/19/21 17:25 Antibody Screen Negative 12/19/21 17:25 Crossmatch See Detail 12/19/21 17:25 Victor/IV: Voiding Method External Female Catheter Active Medications - Current Medications Current Medications: Generic Name Dose Route Start Last Admin Trade Name Freq PRN Reason Stop Dose Admin Acetaminophen 650 mg 12/13/21 23:13 12/21/21 21:50 Acetaminophen 325 Mg Tab PO 650 mg Q4H PRN Administration Pain MILD(1-3)/Fever >100.5/GONZALEZ Albuterol 2.5 mg 12/13/21 23:13 Albuterol 2.5 Mg/3 Ml Nebu IH Q3HRT PRN Shortness Of Breath Amlodipine Besylate 5 mg 12/19/21 10:00 12/24/21 09:44 Amlodipine 5 Mg Tab PO 5 mg QDAY SRAVAN Administration Apixaban 2.5 mg 12/16/21 22:00 12/24/21 09:45 Apixaban 2.5 Mg Tab PO 2.5 mg Q12HR SRAVAN Administration Protocol Atorvastatin Calcium 40 mg 12/14/21 10:00 12/24/21 09:45 Atorvastatin 40 Mg Tab PO 40 mg DAILY SRAVAN Administration Cilostazol 50 mg 12/14/21 10:00 12/24/21 09:44 Cilostazol 100 Mg Tab PO 50 mg BID SRAVAN Administration Clopidogrel Bisulfate 75 mg 12/14/21 10:00 12/24/21 09:45 Clopidogrel 75 Mg Tab PO 75 mg QDAY SRAVAN Administration Docusate Sodium 100 mg 12/22/21 10:00 12/24/21 09:45 Docusate Sodium 100 Mg Cap PO 100 mg BID SRAVAN Administration Gabapentin 100 mg 12/19/21 10:00 12/24/21 09:45 Gabapentin 100 Mg Cap PO 100 mg BID SRAVAN Administration Hydralazine HCl 10 mg 12/17/21 14:23 12/20/21 18:09 Hydralazine 20 Mg/1 Ml Inj IV 10 mg Q4H PRN Administration Hypertension Cefepime HCl 2 gm in 100 mls @ 200 mls/hr 12/18/21 22:00 12/24/21 09:44 Cefepime/Ns 2 Gm/100 Ml IV 01/05/22 22:29 200 mls/hr Q12HR SRAVAN Administration Protocol Vancomycin HCl 1,250 mg/ 275 mls @ 166.667 mls/hr 12/21/21 06:00 12/24/21 06:09 Sodium Chloride IV 166.667 mls/hr Q24H SRAVAN Administration Morphine Sulfate 2 mg 12/13/21 23:13 12/22/21 12:48 Morphine 2 Mg/1 Ml Inj IV 2 mg Q4H PRN Administration Pain, Moderate (4-6) Morphine Sulfate 4 mg 12/13/21 23:13 12/23/21 22:13 Morphine 4 Mg/1 Ml Inj IV 4 mg Q4H PRN Administration Pain , Severe (7-10) Naloxone HCl 0.1 mg 12/14/21 15:02 Naloxone 0.4 Mg/1 Ml Inj IV Q2MIN PRN Res Rate </= 8 or 02 SAT < 92% Ondansetron HCl 4 mg 12/14/21 15:02 12/23/21 06:40 Ondansetron 4 Mg/2 Ml Inj IV 4 mg Q8H PRN Administration Nausea And Vomiting Pantoprazole Sodium 40 mg 12/14/21 16:30 12/24/21 09:45 Pantoprazole 40 Mg Tab PO 40 mg BIDAC SRAVAN Administration Senna 17.2 mg 12/22/21 22:00 12/23/21 22:13 Sennosides 8.6 Mg Tab PO 17.2 mg QHS SRAVAN Administration Sodium Chloride 10 ml 12/13/21 23:13 12/18/21 09:54 Sodium Chloride 0.9% 10 Ml Flush Syringe IV 10 ml PRN PRN Administration LINE FLUSH Trazodone HCl 50 mg 12/19/21 22:00 12/23/21 22:12 Trazodone 50 Mg Tab PO 50 mg QHS SRAVAN Administration Venlafaxine HCl 75 mg 12/17/21 10:00 12/24/21 09:45 Venlafaxine 75 Mg Tab PO 75 mg DAILY SRAVAN Administration Nutrition/Malnutrition Assess - Dietary Evaluation Nutrition/Malnutrition Findings: Nutrition Notes Start: 12/14/21 12:00 Freq: Status: Active Protocol: Document 12/21/21 11:08 MERARI (Rec: 12/21/21 11:48 MERARI [id number]) Nutrition Notes Initial or Follow up Reassessment Current Diagnosis Hypertension,Malnutrition, Hyperlipidemia Other Pertinent Diagnosis PVD s/p L-FP Bypass, L-FP Bypass Occlusion, L-Groin Infection, 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 Labs/Tests 12/21: Cl 109.2, Ca 7.5, Mg 1. 6. Pertinent Medications 12/21: Nutritionally unremarkable. Height 5 ft 2 in Weight 40.823 kg [place] Body Weight (kg) 50.00 BMI 16.5 Weight change and time frame No body weight change reported in 1 week. Weight Status Underweight Subjective/Other Information RD consult for malnutrition assessment. Pt's PO intake has imroved, but still Poor (50%) and fairly tolerated, Pt is also taking her dietary supplements , accvording to RN over the phone. Pt is on Room Air, O2 saturation @ 100%, according to Physical Assessment History notes. Pt has missing teeth, according to Physical Assessment History notes. Pt presents L-LE pitting edema 3+, according to Physical Assessment History notes. Pt's last BM was on 12/17, according to Physical Assessment History notes. Procedure on 12/20: Emergent angioplasty, evacuation of L- groin hematoma, and WoundVac replacement, well tolerated, according to Progress notes. Plans for discharge to LTAC or Rehab on 12/21, according to Progress notes. Percent of energy/protein needs met: Prescribed Regular Diet provides for energy/protein needs (2,289 Kcal/89 g) during LOS; additionally, Dietary Supplements will compensate for possible poor or insufficient PO intake of meals with 1,240 Kcal and 65 g of protein. Burn Absent Trauma Absent GI Symptoms None Food Allergy No Skin Integrity/Comment Several L-LE wounds. 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 Procedure on 12/20: Emergent angioplasty, evacuation of L- groin hematoma, and WoundVac replacement, well tolerated, according to Progress notes. Diagnosis Progress(for reassessment Continues documentation) #1 Nutrition Diagnosis Underweight Diagnosis Progress(for reassessment Continues documentation) Is patient on ventilator? No Is Patient Ambulatory and/or Out of Bed No REE-([place]-confined to bed) 1134.852 Kcal/Kg value to use for calculation 30 Approximate Energy Requirements Using 1225 kcal/Kg Calculation Used for Recommendations Kcal/kg Additional Notes Protein: 1.5-2 g/Kg ABW; 62-84 g/day. Fluids: 1 ml/Kcal, or as per MD. Nutrition Intervention Change Diet Order: Continue Regular Diet as tolerated. Add Supplement/Snack (indicate name/kcal Continue 8 fl oz Ensure Enlive /protein ) ; TID. Start 28.8 g pkt Jeremy; BID. Provides kCal: 1,240 Provides Protein (gm) 65 Goal #1 Compensate, through dietary supplementation, for possible poor or insufficient PO intake of meals during LOS. Goal #2 Support, through dietary supplementation, wound healing processes during LOS. Goal #3 Adjust the dietary intervention to better serve Pt's needs and clinical conditions during LOS. Follow-Up By: 12/28/21 Additional Comments Continue monitoring food tolerance, %PO intake of meals , dietary supplements, and BM.
[2021-12-24] MEDS: MORPHINE 2 MG/1 ML INJ IV PRN (10:53)
[2021-12-24] MEDS: MORPHINE 4 MG/1 ML INJ IV PRN ×2 (16:33→21:46)
[2021-12-24] MEDS: ONDANSETRON 4 MG/2 ML INJ IV PRN (21:44)
[2021-12-24] MEDS: traZODone 50 MG TAB PO SCH (21:45)
[2021-12-24] MEDS: SENNOSIDES 8.6 MG TAB PO SCH (21:45)
[2021-12-25] MEDS: MORPHINE 4 MG/1 ML INJ IV PRN ×4 (05:13→20:56)
[2021-12-25] MEDS: ONDANSETRON 4 MG/2 ML INJ IV PRN (05:13)
[2021-12-25] MEDS: VANCOMYCIN 1,250 MG in SODIUM CHLORIDE 0.9% 250ML 250 ML IV SCH (05:13)
[2021-12-25 05:51] LABS: Hematocrit 23.2 % (30.3-42.9); Hemoglobin 7.6 gm/dl (10.1-14.3); Mean Corpuscular HGB Conc 33 % (30-34); Mean Corpuscular Volume 88 fl (79-97); Platelet Count 329 K/mm3 (140-440); Red Blood Count 2.63 M/mm3 (3.65-5.03)
[2021-12-25 05:58] LABS: Red Cell Distribution Width 21.2 % (13.2-15.2)
[2021-12-25 06:06] LABS: Blood Urea Nitrogen 8 mg/dL (7-17); Calcium 7.3 mg/dL (8.4-10.2); Hemolysis Index 1
[2021-12-25 06:21] LABS: BUN/Creatinine Ratio 11
[2021-12-25] MEDS ORDERED: POTASSIUM CHLORIDE ER 20 MEQ TAB PO SCH ×3 (07:15→18:50)
[2021-12-25] MEDS ORDERED: POTASSIUM CHLORIDE 20 MEQ 20 MEQ/100 ML BAG IV SCH (07:30)
[2021-12-25] MEDS ORDERED: MAGNESIUM SULFATE 4 GM/100 ML BAG IV SCH (08:30)
[2021-12-25] MEDS: GABAPENTIN 100 MG CAP PO SCH ×2 (09:21→21:01)
[2021-12-25] MEDS: CEFEPIME/NS 2 GM/100 ML 2 GM/100 ML BAG IV SCH ×2 (09:21→21:01)
[2021-12-25] MEDS: DOCUSATE SODIUM 100 MG CAP PO SCH ×2 (09:22→21:02)
[2021-12-25] MEDS: CLOPIDOGREL 75 MG TAB PO SCH (09:22)
[2021-12-25] MEDS: amLODIPine 5 MG TAB PO SCH (09:22)
[2021-12-25] MEDS: APIXABAN 2.5 MG TAB PO SCH ×2 (09:22→21:01)
[2021-12-25] MEDS: PANTOPRAZOLE 40 MG TAB PO SCH ×2 (09:23→16:15)
[2021-12-25] MEDS: VENLAFAXINE 75 MG TAB PO SCH (09:27)
[2021-12-25] MEDS: CILOSTAZOL 100 MG TAB PO SCH ×2 (09:27→21:02)
--- NOTE | 2021-12-25 14:26 | Progress Note ---
Assessment and Plan The patient is doing well without any acute complaints. Wound VAC functioning without issue over left groin, thigh, and calf. Increase activity with physical therapy. Again reiterated needs for increasing nutritional intake. Patient agrees with plan for rehab upon discharge. Subjective Date of service: 12/25/21 Principal diagnosis: Acute arterial bleeding Interval history: Doing well. Has some left groin pain but feels good. Has an appetite. Recommended continuing to eat and continuing to use Ensure shakes. Again, put heel protector boots on patient. 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 Limited sensation in forefoot and midfoot right side, and forefoot on left side. No toe movement. Limited ankle movement. Bilateral foot drop again noted. Dopplerable pulses in PT and DP on right side with palpable left pedal pulses. Wound VAC without issue. Discussed with patient that being discharged home would be highly unadvisable. She now understands. Objective - Constitutional Vitals: Vital Signs - 12hr 12/25/21 12/25/21 12/25/21 03:00 04:00 05:00 Temperature 97.9 F Pulse Rate 91 H 92 H 83 Pulse Rate [ 84 From Monitor] Respiratory 12 7 L 10 L Rate Respiratory Rate [Left Leg] Blood Pressure 150/69 161/73 142/68 O2 Sat by Pulse 96 97 96 Oximetry 12/25/21 12/25/21 12/25/21 05:13 05:15 05:43 Temperature Pulse Rate Pulse Rate [ From Monitor] Respiratory 11 L 10 L Rate Respiratory 12 Rate [Left Leg] Blood Pressure O2 Sat by Pulse Oximetry 12/25/21 12/25/21 12/25/21 06:00 07:00 08:00 Temperature 98.8 F Pulse Rate 84 84 86 Pulse Rate [ 81 From Monitor] Respiratory 11 L 11 L 10 L Rate Respiratory Rate [Left Leg] Blood Pressure 125/58 161/76 156/76 O2 Sat by Pulse 96 95 94 Oximetry 12/25/21 12/25/21 12/25/21 08:53 09:01 09:22 Temperature Pulse Rate 93 H 87 Pulse Rate [ From Monitor] Respiratory 21 Rate Respiratory 16 Rate [Left Leg] Blood Pressure 157/69 157/69 O2 Sat by Pulse 93 Oximetry 12/25/21 12/25/21 12/25/21 10:00 11:00 11:58 Temperature 98.1 F Pulse Rate 86 94 H 88 Pulse Rate [ 88 From Monitor] Respiratory 13 14 16 Rate Respiratory Rate [Left Leg] Blood Pressure 155/76 164/83 O2 Sat by Pulse 94 95 97 Oximetry 12/25/21 12/25/21 12/25/21 11:59 12:00 13:00 Temperature Pulse Rate 96 H 87 Pulse Rate [ From Monitor] Respiratory 13 11 L Rate Respiratory 16 Rate [Left Leg] Blood Pressure 152/77 153/77 O2 Sat by Pulse 97 93 Oximetry 12/25/21 14:00 Temperature Pulse Rate 89 Pulse Rate [ From Monitor] Respiratory Rate Respiratory Rate [Left Leg] Blood Pressure 161/81 O2 Sat by Pulse 95 Oximetry General appearance: Present: no acute distress - EENT Eyes: EOM intact ENT: hearing intact - Neck Neck: supple - Respiratory Respiratory effort: normal - Cardiovascular Rhythm: regular Extremities: normal temperature, normal color, abnormal (Bilateral heel eschars, heel protector boots on, palpable left pedal pulses, dopplerable right pedal pulses, both feet are warm and well perfused, healed right dorsal ulcer) Extremity abnormal: other (Bilateral foot drop) - Gastrointestinal General gastrointestinal: Present: soft, non-tender - Neurologic Neurologic: other (Bilateral foot drop) - Psychiatric Psychiatric: appropriate mood/affect, no intact judgment & insight, cooperative - Labs CBC & Chem 7: 12/25/21 05:30 12/25/21 04:00 Labs: Abnormal lab results 12/25/21 12/25/21 Range/Units 04:00 05:30 RBC 2.63 L (3.65-5.03) M/mm3 Hgb 7.6 L (10.1-14.3) gm/dl Hct 23.2 L (30.3-42.9) % RDW 21.2 H (13.2-15.2) % Sodium 136 L (137-145) mmol/L Potassium 2.7 L* D (3.6-5.0) mmol/L Calcium 7.3 L (8.4-10.2) mg/dL Magnesium 1.50 L (1.7-2.3) mg/dL Medications & Allergies - Medications Allergies/Adverse Reactions: Allergies No Known Allergies Allergy (Verified 12/13/21 17:26) Home Medications: Home Medications Medication Instructions Recorded Confirmed Last Taken Type Apixaban [Eliquis] 2.5 mg PO Q12HR #60 tab 09/01/21 12/14/21 12/13/21 Rx AtorvaSTATin [Lipitor] 40 mg PO DAILY 09/01/21 12/14/21 12/14/21 History Gabapentin 100 mg PO BID 09/01/21 12/14/21 12/13/21 History Pantoprazole [Protonix TAB] 40 mg PO QDAY #90 tablet 09/01/21 12/14/21 12/13/21 Rx carvediloL [Coreg] 25 mg PO BID 09/01/21 12/14/21 12/13/21 History traZODone [Desyrel] 100 mg PO QHS 09/01/21 12/14/21 12/13/21 History Venlafaxine [Effexor] 75 mg PO DAILY 11/02/21 12/14/21 12/13/21 History Aspirin EC [Halfprin EC] 81 mg PO QDAY #30 tablet 12/11/21 12/14/21 12/13/21 Rx Clopidogrel [Plavix] 75 mg PO QDAY #90 tablet 12/11/21 12/14/21 12/14/21 Rx Docusate Sodium [Colace CAP] 100 mg PO BID #60 capsule 12/11/21 12/14/21 12/13/21 Rx cilostazoL [Pletal] 50 mg PO BID #60 tab 12/11/21 12/14/21 12/13/21 Rx levoFLOXacin [Levaquin] 750 mg PO QDAY #7 tablet 12/11/21 12/14/21 12/13/21 Rx traMADoL [Ultram] 50 mg PO Q6HR PRN #20 tablet 12/11/21 12/14/21 12/13/21 Rx Active Medications: Generic Name Dose Route Start Last Admin Trade Name Freq PRN Reason Stop Dose Admin Acetaminophen 650 mg 12/13/21 23:13 12/21/21 21:50 Acetaminophen 325 Mg Tab PO 650 mg Q4H PRN Administration Pain MILD(1-3)/Fever >100.5/GONZALEZ Albuterol 2.5 mg 12/13/21 23:13 Albuterol 2.5 Mg/3 Ml Nebu IH Q3HRT PRN Shortness Of Breath Amlodipine Besylate 5 mg 12/19/21 10:00 12/25/21 09:22 Amlodipine 5 Mg Tab PO Not Given QDAY SRAVAN Apixaban 2.5 mg 12/16/21 22:00 12/25/21 09:22 Apixaban 2.5 Mg Tab PO 2.5 mg Q12HR SRAVAN Administration Protocol Atorvastatin Calcium 40 mg 12/14/21 10:00 12/25/21 09:23 Atorvastatin 40 Mg Tab PO 40 mg DAILY SRAVAN Administration Cilostazol 50 mg 12/14/21 10:00 12/25/21 09:27 Cilostazol 100 Mg Tab PO 50 mg BID SRAVAN Administration Clopidogrel Bisulfate 75 mg 12/14/21 10:00 12/25/21 09:22 Clopidogrel 75 Mg Tab PO 75 mg QDAY SRAVAN Administration Docusate Sodium 100 mg 12/22/21 10:00 12/25/21 09:22 Docusate Sodium 100 Mg Cap PO 100 mg BID SRAVAN Administration Gabapentin 100 mg 12/19/21 10:00 12/25/21 09:21 Gabapentin 100 Mg Cap PO 100 mg BID SRAVAN Administration Hydralazine HCl 10 mg 12/17/21 14:23 12/20/21 18:09 Hydralazine 20 Mg/1 Ml Inj IV 10 mg Q4H PRN Administration Hypertension Cefepime HCl 2 gm in 100 mls @ 200 mls/hr 12/18/21 22:00 12/25/21 09:51 Cefepime/Ns 2 Gm/100 Ml IV 01/05/22 22:29 Infused Q12HR SRAVAN Infusion Protocol Vancomycin HCl 1,250 mg/ 275 mls @ 166.667 mls/hr 12/21/21 06:00 12/25/21 06:52 Sodium Chloride IV 01/05/22 07:38 Infused Q24H SRAVAN Infusion Morphine Sulfate 2 mg 12/13/21 23:13 12/24/21 10:53 Morphine 2 Mg/1 Ml Inj IV 2 mg Q4H PRN Administration Pain, Moderate (4-6) Morphine Sulfate 4 mg 12/13/21 23:13 12/25/21 09:32 Morphine 4 Mg/1 Ml Inj IV 4 mg Q4H PRN Administration Pain , Severe (7-10) Naloxone HCl 0.1 mg 12/14/21 15:02 Naloxone 0.4 Mg/1 Ml Inj IV Q2MIN PRN Res Rate </= 8 or 02 SAT < 92% Ondansetron HCl 4 mg 12/14/21 15:02 12/25/21 05:13 Ondansetron 4 Mg/2 Ml Inj IV 4 mg Q8H PRN Administration Nausea And Vomiting Pantoprazole Sodium 40 mg 12/14/21 16:30 12/25/21 09:23 Pantoprazole 40 Mg Tab PO 40 mg BIDAC SRAVAN Administration Potassium Chloride 40 meq 12/25/21 12:00 12/25/21 12:32 Potassium Chloride Er 20 Meq Tab PO 12/25/21 16:00 40 meq ONCE@1200 SRAVAN Administration Senna 17.2 mg 12/22/21 22:00 12/24/21 21:45 Sennosides 8.6 Mg Tab PO 17.2 mg QHS SRAVAN Administration Sodium Chloride 10 ml 12/13/21 23:13 12/24/21 22:02 Sodium Chloride 0.9% 10 Ml Flush Syringe IV 10 ml PRN PRN Administration LINE FLUSH Trazodone HCl 50 mg 12/19/21 22:00 12/24/21 21:45 Trazodone 50 Mg Tab PO 50 mg QHS SRAVAN Administration Venlafaxine HCl 75 mg 12/17/21 10:00 12/25/21 09:27 Venlafaxine 75 Mg Tab PO 75 mg DAILY SRAVAN Administration
--- NOTE | 2021-12-25 18:46 | Progress Note ---
<MARTÍNEZGALE HSebas - Last Filed: 12/25/21 18:49> Assessment and Plan Assessment and plan: This is a 56-year-old female with PVD, HTN, HLD, anemia, neuropathy admitted with left femoral artery injury resulting in hemorrhage Neuro: h/o CVA -Reorientation as needed -Maintain sleep-wake cycle -As needed analgesia Cardiac: h/o HTN, HLD, CAD -Antihypertensive regimen adjusted -Blood pressure monitor per protocol -Lipitor Respiratory: h/o nicotine abuse -Currently on room air -Supplemental oxygen as needed -SPO2 monitoring -Pulmonary hygiene GI: Moderate Protein calorie malnutrition -24 hours -665 mL -PPI -Cardiac diet with supplements -BR: colace : Hypokalemia, hypomagnesemia -Monitor intake and output -Renally dose medications -Avoid nephrotoxic medications -Replete potassium and magnesium -Trend BMP ID: ? Left femoral arterial infection -Infectious disease consulted, appreciate recommendation -Antibiotic therapy with cefepime and vancomycin -exterminator abx: vancomycin 1 g every 24 hours and cefepime 2 g every 12 hours until 01/05/2022 -s/p PICC -f/u blood culture -Monitor WBC and temperature curve Endo: NAD -Avoid hypoglycemia Heme/Vasc: ABLA, (bleeding with exception of left common femoral arterial patch, Leukocytosis, h/o severe PVD s/p left femoral-popliteal bypass with fasciotomy, right lower extremity right revascularization -Presents with a hemoglobin of 7.6-> 11.1 -CT abdomen/pelvis showed small amount of active hemorrhage in the left inguinal region and a large renal hematoma, excessive swelling throughout the entire left leg and 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 -S/p 10 units PRBC, 2 FFP -Vascular surgery and CCM consulted, appreciate recommendations -S/p exploration of left groin with open thrombectomy of left SFA, repair of left common femoral artery, coverage of left femoral artery with muscle flap and wound VAC placement -12/19 s/p emergent angiooplasty, evacuation of left groin hematoma,and Replacement of Wound VAC overnight due to left groin hematoma and bleeding -Continue Pletal, plavix, Eliquis per vascular -s/p Heparin gtt -Trend CBC -Transfuse hemoglobin less than 7 -Continue -SCDs to BLE while in bed Critical Care Billing: The high probability of a clinically significant, sudden or life threatening d eterioration of the [vascular] system(s) required my full and direct attention, intervention and personal management. The aggregate critical care time was [60] minutes. This time is in addition to time spent performing reported procedures but includes the following: [x] Data Review and interpretation [x] Patient assessment and monitoring of vital signs [x] Documentation [x] Medication orders and management Disposition Plan: [facility] Total Time Spent with Patient (Minutes): 60 History Interval history: This is a 56-year-old female with PVD s/p femoral-popliteal bypass surgery c/b compartment syndrome s/p fasciotomy, occlusion infection, HTN, CVA, HLD, anemia, neuropathy presented to the emergency department on 12/13 with hemorrhage from her wound VAC site after her home health care nurse changed her wound VAC per patient. Work-up in the emergency department revealed hemoglobin of 6.6 and she was transfused 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 Vascular surgery was consulted and patient was taken to quality assurance lab technician for repair of femoral artery injury. Patient was admitted to the hospitalist service with consult to [facility]. Hospital course to date 12/15: Currently in CCU, decreased urine output reported overnight. We will continue lactated Ringer's. Continue serial H&H. 12/16: patient noted to be anemic and given prbc. repeat post transfusion h/h is 9.5/27.4. Will need exterminator abx therefore PICC ordered. 12/17: No acute events reported overnight. H&H stable. Transfer to [facility] per vascular request 12/18: Remains stable. Bleeding resolved and H&H remains stable. Awaiting additional wound VAC placement on LLE by wound care. Plan for possible discharge to a rehab facility, case management to arrange. 12/19: Wound VAC malfunctioning this am, saturated dressing noted at the left groin site. Pedal pulses appreciated with a doppler, H&H and VSS remain stable. Wound care contacted for Wound Vac dressing change. Continue PRN analgesia, gabapentin resumed for neuropathy pain. Vascular Surgery is also following. 12/20: S/p emergent angiooplasty, evacuation of left groin hematoma,and Replacement of Wound VAC overnight due to left groin hematoma and bleeding. Patient received 3units of PRBCs and 1unit of FFP. H&H and vital signs stable this am. No s/s of any active bleeding noted. Left groin site and Wound VAC noted with no complications. Patient remains on Pletal, Plavix, and Eliquis per Vascular Surgery. Will continue to trend H&H. Discharge planning to rehab vs LTAC. Case management to arrange 12/21: Remains stable. Left groin site and wound vac remains intact with no complications. Slightly hypertensive this am, will D/C continous IVF continue current antihypertensive therapy. Possible LTAC vs rehab placement, case management to arrange. 12/22: RUTH overnight. Continue current supportive measures. Possible LTAC vs rehab placement, case management to arrange 12/23: Patient continues to show improvement. I did discuss with nurse to keep a record of how much she is eating. Poor wound healing secondary to poor p.o. intake and overall clinical medical condition. Still awaiting placement for appropriate disposition. Vascular surgeon did adjust wound management and treatment with wound VAC now in place Continues there are some granulation tissue is noted. Vascular did bridge all 3 incisions to 1 wound VAC. Continue with PT OT treatment to increase activity 12/24: Continue supportive care, replace k, continue to encourage improved PO INTAKE, Awaiting placement for continued wound healing, remains at increase risk of limb loss if no improvement 12/25: no acute events overnight, replete potassium Hospitalist Physical - Physical exam Narrative exam: General appearance: Present: no acute distress, cachectic - EENT Eyes: Present: PERRL, EOM intact ENT: hearing intact, clear oral mucosa, edentulous - Neck Neck: Present: normal ROM - Respiratory Respiratory effort: normal Respiratory: bilateral: CTA - Cardiovascular Rhythm: regular Heart Sounds: Present: S1 & S2. Absent: systolic murmur, diastolic murmur - Extremities Extremities: no ischemia, pulses intact, abnormal (LLE swelling, WoundVac present left thigh wound left calf 1 continues to made left leg area. Wound VAC in place.. Pulses appreciated with a doppler. No complications noted) Extremity abnormal: edema - Peripheral Assessment Left Lower Extremity Edema Type: Pitting Edema Degree: 2+ Capillary Refill: < 3 seconds Skin Temperature: Warm Peripheral Pulses: within normal limits - Abdominal General gastrointestinal: soft, non-tender, non-distended, normal bowel sounds - Integumentary Integumentary: Present: warm, dry - Psychiatric Psychiatric: cooperative - Neurologic Neurologic: CNII-XII intact, no focal deficits, moves all extremities - Constitutional Vitals: Temp Pulse Resp BP Pulse Ox 98.1 F 83 12 156/75 96 12/25/21 16:00 12/25/21 18:00 12/25/21 18:00 12/25/21 18:00 12/25/21 18:00 General appearance: Present: no acute distress Results - Labs CBC & Chem 7: 12/25/21 05:30 12/25/21 14:00 Labs: Laboratory Last Values WBC 6.7 K/mm3 (4.5-11.0) 12/25/21 05:30 RBC 2.63 M/mm3 (3.65-5.03) L 12/25/21 05:30 Hgb 7.6 gm/dl (10.1-14.3) L 12/25/21 05:30 Hct 23.2 % (30.3-42.9) L 12/25/21 05:30 MCV 88 fl (79-97) 12/25/21 05:30 MCH 29 pg (28-32) 12/25/21 05:30 MCHC 33 % (30-34) 12/25/21 05:30 RDW 21.2 % (13.2-15.2) H 12/25/21 05:30 Plt Count 329 K/mm3 (140-440) 12/25/21 05:30 Lymph % (Auto) 15.4 % (13.4-35.0) 12/17/21 05:00 [place] % (Auto) 8.9 % (0.0-7.3) H 12/17/21 05:00 Eos % (Auto) 1.7 % (0.0-4.3) 12/17/21 05:00 Baso % (Auto) 1.1 % (0.0-1.8) 12/17/21 05:00 Lymph # (Auto) 1.3 K/mm3 (1.2-5.4) 12/17/21 05:00 [place] # (Auto) 0.7 K/mm3 (0.0-0.8) 12/17/21 05:00 Eos # (Auto) 0.1 K/mm3 (0.0-0.4) 12/17/21 05:00 Baso # (Auto) 0.1 K/mm3 (0.0-0.1) 12/17/21 05:00 Seg Neutrophils % 72.9 % (40.0-70.0) H 12/17/21 05:00 Seg Neutrophils # 6.0 K/mm3 (1.8-7.7) 12/17/21 05:00 PT 16.0 Sec. (12.2-14.9) H 12/21/21 04:43 INR 1.12 (0.87-1.13) 12/21/21 04:43 APTT 38.3 Sec. (24.2-36.6) H 12/21/21 04:43 Fibrinogen 399 mg/dl (211-480) 12/19/21 12:50 Heparin Anti-Xa Level 0.66 U.I./ml (0.3-0.7) 12/14/21 22:43 Sodium 136 mmol/L (137-145) L 12/25/21 04:00 Potassium 3.5 mmol/L (3.6-5.0) L D 12/25/21 14:00 Chloride 100.9 mmol/L (98-107) 12/25/21 04:00 Carbon Dioxide 30 mmol/L (22-30) 12/25/21 04:00 Anion Gap 8 mmol/L 12/25/21 04:00 BUN 8 mg/dL (7-17) 12/25/21 04:00 Creatinine 0.7 mg/dL (0.6-1.2) 12/25/21 04:00 Estimated GFR > 60 ml/min 12/25/21 04:00 BUN/Creatinine Ratio 11 % 12/25/21 04:00 Glucose 80 mg/dL (65-100) 12/25/21 04:00 Calcium 7.3 mg/dL (8.4-10.2) L 12/25/21 04:00 Phosphorus 2.90 mg/dL (2.5-4.5) 12/25/21 04:00 Magnesium 1.50 mg/dL (1.7-2.3) L 12/25/21 04:00 Total Bilirubin 0.30 mg/dL (0.1-1.2) 12/13/21 18:25 AST 13 units/L (5-40) 12/13/21 18:25 ALT < 5 units/L (7-56) L 12/13/21 18:25 Alkaline Phosphatase 118 units/L (35-129) 12/13/21 18:25 Total Protein 4.6 g/dL (6.3-8.2) L 12/13/21 18:25 Albumin 2.1 g/dL (3.9-5) L 12/13/21 18:25 Albumin/Globulin Ratio 0.8 % 12/13/21 18:25 Vancomycin Trough 9.8 ug/mL (5.0-20.0) 12/19/21 04:29 Blood Type O POSITIVE 12/19/21 17:25 Antibody Screen Negative 12/19/21 17:25 Crossmatch See Detail 12/19/21 17:25 Victor/IV: Voiding Method Diaper Active Medications - Current Medications Current Medications: Generic Name Dose Route Start Last Admin Trade Name Freq PRN Reason Stop Dose Admin Acetaminophen 650 mg 12/13/21 23:13 12/21/21 21:50 Acetaminophen 325 Mg Tab PO 650 mg Q4H PRN Administration Pain MILD(1-3)/Fever >100.5/GONZALEZ Albuterol 2.5 mg 12/13/21 23:13 Albuterol 2.5 Mg/3 Ml Nebu IH Q3HRT PRN Shortness Of Breath Amlodipine Besylate 5 mg 12/19/21 10:00 12/25/21 09:22 Amlodipine 5 Mg Tab PO Not Given QDAY SRAVAN Apixaban 2.5 mg 12/16/21 22:00 12/25/21 09:22 Apixaban 2.5 Mg Tab PO 2.5 mg Q12HR SRAVAN Administration Protocol Atorvastatin Calcium 40 mg 12/14/21 10:00 12/25/21 09:23 Atorvastatin 40 Mg Tab PO 40 mg DAILY SRAVAN Administration Cilostazol 50 mg 12/14/21 10:00 12/25/21 09:27 Cilostazol 100 Mg Tab PO 50 mg BID SRAVAN Administration Clopidogrel Bisulfate 75 mg 12/14/21 10:00 12/25/21 09:22 Clopidogrel 75 Mg Tab PO 75 mg QDAY SRAVAN Administration Docusate Sodium 100 mg 12/22/21 10:00 12/25/21 09:22 Docusate Sodium 100 Mg Cap PO 100 mg BID SRAVAN Administration Gabapentin 100 mg 12/19/21 10:00 12/25/21 09:21 Gabapentin 100 Mg Cap PO 100 mg BID SRAVAN Administration Hydralazine HCl 10 mg 12/17/21 14:23 12/20/21 18:09 Hydralazine 20 Mg/1 Ml Inj IV 10 mg Q4H PRN Administration Hypertension Cefepime HCl 2 gm in 100 mls @ 200 mls/hr 12/18/21 22:00 12/25/21 09:51 Cefepime/Ns 2 Gm/100 Ml IV 01/05/22 22:29 Infused Q12HR SRAVAN Infusion Protocol Vancomycin HCl 1,250 mg/ 275 mls @ 166.667 mls/hr 12/21/21 06:00 12/25/21 06:52 Sodium Chloride IV 01/05/22 07:38 Infused Q24H SRAVAN Infusion Morphine Sulfate 2 mg 12/13/21 23:13 12/24/21 10:53 Morphine 2 Mg/1 Ml Inj IV 2 mg Q4H PRN Administration Pain, Moderate (4-6) Morphine Sulfate 4 mg 12/13/21 23:13 12/25/21 16:15 Morphine 4 Mg/1 Ml Inj IV 4 mg Q4H PRN Administration Pain , Severe (7-10) Naloxone HCl 0.1 mg 12/14/21 15:02 Naloxone 0.4 Mg/1 Ml Inj IV Q2MIN PRN Res Rate </= 8 or 02 SAT < 92% Ondansetron HCl 4 mg 12/14/21 15:02 12/25/21 05:13 Ondansetron 4 Mg/2 Ml Inj IV 4 mg Q8H PRN Administration Nausea And Vomiting Pantoprazole Sodium 40 mg 12/14/21 16:30 12/25/21 16:15 Pantoprazole 40 Mg Tab PO 40 mg BIDAC SRAVAN Administration Senna 17.2 mg 12/22/21 22:00 12/24/21 21:45 Sennosides 8.6 Mg Tab PO 17.2 mg QHS SRAVAN Administration Sodium Chloride 10 ml 12/13/21 23:13 12/24/21 22:02 Sodium Chloride 0.9% 10 Ml Flush Syringe IV 10 ml PRN PRN Administration LINE FLUSH Trazodone HCl 50 mg 12/19/21 22:00 12/24/21 21:45 Trazodone 50 Mg Tab PO 50 mg QHS SRAVAN Administration Venlafaxine HCl 75 mg 12/17/21 10:00 12/25/21 09:27 Venlafaxine 75 Mg Tab PO 75 mg DAILY SRAVAN Administration Nutrition/Malnutrition Assess - Dietary Evaluation Nutrition/Malnutrition Findings: Nutrition Notes Start: 12/14/21 12:00 Freq: Status: Active Protocol: Document 12/21/21 11:08 MERARI (Rec: 12/21/21 11:48 MERARI [id number]) Nutrition Notes Initial or Follow up Reassessment Current Diagnosis Hypertension,Malnutrition, Hyperlipidemia Other Pertinent Diagnosis PVD s/p L-FP Bypass, L-FP Bypass Occlusion, L-Groin Infection, 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 Labs/Tests 12/21: Cl 109.2, Ca 7.5, Mg 1. 6. Pertinent Medications 12/21: Nutritionally unremarkable. Height 5 ft 2 in Weight 40.823 kg [place] Body Weight (kg) 50.00 BMI 16.5 Weight change and time frame No body weight change reported in 1 week. Weight Status Underweight Subjective/Other Information RD consult for malnutrition assessment. Pt's PO intake has imroved, but still Poor (50%) and fairly tolerated, Pt is also taking her dietary supplements , accvording to RN over the phone. Pt is on Room Air, O2 saturation @ 100%, according to Physical Assessment History notes. Pt has missing teeth, according to Physical Assessment History notes. Pt presents L-LE pitting edema 3+, according to Physical Assessment History notes. Pt's last BM was on 12/17, according to Physical Assessment History notes. Procedure on 12/20: Emergent angioplasty, evacuation of L- groin hematoma, and WoundVac replacement, well tolerated, according to Progress notes. Plans for discharge to LTAC or Rehab on 12/21, according to Progress notes. Percent of energy/protein needs met: Prescribed Regular Diet provides for energy/protein needs (2,289 Kcal/89 g) during LOS; additionally, Dietary Supplements will compensate for possible poor or insufficient PO intake of meals with 1,240 Kcal and 65 g of protein. Burn Absent Trauma Absent GI Symptoms None Food Allergy No Skin Integrity/Comment Several L-LE wounds. Current % PO Poor (25-49%) Minimum of two criteria No Fluid Accumulation N/A Reduced [place] Reo Strength N/A (non-severe) Protein-Calorie Malnutrition N\A #2 Nutrition Diagnosis Increased nutrient needs ( specify in comment below) Comments: Protein to support wound healing and compensate for blood loss. Procedure on 12/20: Emergent angioplasty, evacuation of L- groin hematoma, and WoundVac replacement, well tolerated, according to Progress notes. Diagnosis Progress(for reassessment Continues documentation) #1 Nutrition Diagnosis Underweight Diagnosis Progress(for reassessment Continues documentation) Is patient on ventilator? No Is Patient Ambulatory and/or Out of Bed No REE-([place]-confined to bed) 1134.852 Kcal/Kg value to use for calculation 30 Approximate Energy Requirements Using 1225 kcal/Kg Calculation Used for Recommendations Kcal/kg Additional Notes Protein: 1.5-2 g/Kg ABW; 62-84 g/day. Fluids: 1 ml/Kcal, or as per MD. Nutrition Intervention Change Diet Order: Continue Regular Diet as tolerated. Add Supplement/Snack (indicate name/kcal Continue 8 fl oz Ensure Enlive /protein ) ; TID. Start 28.8 g pkt Jeremy; BID. Provides kCal: 1,240 Provides Protein (gm) 65 Goal #1 Compensate, through dietary supplementation, for possible poor or insufficient PO intake of meals during LOS. Goal #2 Support, through dietary supplementation, wound healing processes during LOS. Goal #3 Adjust the dietary intervention to better serve Pt's needs and clinical conditions during LOS. Follow-Up By: 12/28/21 Additional Comments Continue monitoring food tolerance, %PO intake of meals , dietary supplements, and BM. <ARNOLD WELCH - Last Filed: 12/26/21 11:47> Assessment and Plan Assessment and plan: I saw and evaluated the patient. I agree with the findings and the plan of care as documented in the Nurse Practitioner's~note, with the following corrections and additions. Hospitalist Physical - Constitutional Vitals: Temp Pulse Resp BP Pulse Ox 98.6 F 89 17 150/84 96 12/26/21 08:00 12/26/21 10:01 12/26/21 10:01 12/26/21 10:01 12/26/21 10:01 Results - Labs CBC & Chem 7: 12/26/21 04:18 12/26/21 04:18 Labs: Laboratory Last Values WBC 5.9 K/mm3 (4.5-11.0) 12/26/21 04:18 RBC 2.71 M/mm3 (3.65-5.03) L 12/26/21 04:18 Hgb 8.1 gm/dl (10.1-14.3) L 12/26/21 04:18 Hct 24.0 % (30.3-42.9) L 12/26/21 04:18 MCV 89 fl (79-97) 12/26/21 04:18 MCH 30 pg (28-32) 12/26/21 04:18 MCHC 34 % (30-34) 12/26/21 04:18 RDW 21.4 % (13.2-15.2) H 12/26/21 04:18 Plt Count 346 K/mm3 (140-440) 12/26/21 04:18 Lymph % (Auto) 15.4 % (13.4-35.0) 12/17/21 05:00 [place] % (Auto) 8.9 % (0.0-7.3) H 12/17/21 05:00 Eos % (Auto) 1.7 % (0.0-4.3) 12/17/21 05:00 Baso % (Auto) 1.1 % (0.0-1.8) 12/17/21 05:00 Lymph # (Auto) 1.3 K/mm3 (1.2-5.4) 12/17/21 05:00 [place] # (Auto) 0.7 K/mm3 (0.0-0.8) 12/17/21 05:00 Eos # (Auto) 0.1 K/mm3 (0.0-0.4) 12/17/21 05:00 Baso # (Auto) 0.1 K/mm3 (0.0-0.1) 12/17/21 05:00 Seg Neutrophils % 72.9 % (40.0-70.0) H 12/17/21 05:00 Seg Neutrophils # 6.0 K/mm3 (1.8-7.7) 12/17/21 05:00 PT 16.0 Sec. (12.2-14.9) H 12/21/21 04:43 INR 1.12 (0.87-1.13) 12/21/21 04:43 APTT 38.3 Sec. (24.2-36.6) H 12/21/21 04:43 Fibrinogen 399 mg/dl (211-480) 12/19/21 12:50 Heparin Anti-Xa Level 0.66 U.I./ml (0.3-0.7) 12/14/21 22:43 Sodium 136 mmol/L (137-145) L 12/26/21 04:18 Potassium 3.6 mmol/L (3.6-5.0) 12/26/21 04:18 Chloride 100.7 mmol/L (98-107) 12/26/21 04:18 Carbon Dioxide 30 mmol/L (22-30) 12/26/21 04:18 Anion Gap 9 mmol/L 12/26/21 04:18 BUN 7 mg/dL (7-17) 12/26/21 04:18 Creatinine 0.5 mg/dL (0.6-1.2) L 12/26/21 04:18 Estimated GFR > 60 ml/min 12/26/21 04:18 BUN/Creatinine Ratio 14 % 12/26/21 04:18 Glucose 76 mg/dL (65-100) 12/26/21 04:18 Calcium 7.5 mg/dL (8.4-10.2) L 12/26/21 04:18 Phosphorus 2.90 mg/dL (2.5-4.5) 12/25/21 04:00 Magnesium 1.90 mg/dL (1.7-2.3) 12/26/21 04:18 Total Bilirubin 0.30 mg/dL (0.1-1.2) 12/13/21 18:25 AST 13 units/L (5-40) 12/13/21 18:25 ALT < 5 units/L (7-56) L 12/13/21 18:25 Alkaline Phosphatase 118 units/L (35-129) 12/13/21 18:25 Total Protein 4.6 g/dL (6.3-8.2) L 12/13/21 18:25 Albumin 2.1 g/dL (3.9-5) L 12/13/21 18:25 Albumin/Globulin Ratio 0.8 % 12/13/21 18:25 Vancomycin Trough 15.0 ug/mL (5.0-20.0) 12/26/21 04:18 Blood Type O POSITIVE 12/19/21 17:25 Antibody Screen Negative 12/19/21 17:25 Crossmatch See Detail 12/19/21 17:25 Victor/IV: Voiding Method Diaper Active Medications - Current Medications Current Medications: Generic Name Dose Route Start Last Admin Trade Name Freq PRN Reason Stop Dose Admin Acetaminophen 650 mg 12/13/21 23:13 12/21/21 21:50 Acetaminophen 325 Mg Tab PO 650 mg Q4H PRN Administration Pain MILD(1-3)/Fever >100.5/GONZALEZ Albuterol 2.5 mg 12/13/21 23:13 Albuterol 2.5 Mg/3 Ml Nebu IH Q3HRT PRN Shortness Of Breath Amlodipine Besylate 5 mg 12/19/21 10:00 12/26/21 09:27 Amlodipine 5 Mg Tab PO 5 mg QDAY SRAVAN Administration Apixaban 2.5 mg 12/16/21 22:00 12/26/21 09:28 Apixaban 2.5 Mg Tab PO 2.5 mg Q12HR SRAVAN Administration Protocol Atorvastatin Calcium 40 mg 12/14/21 10:00 12/26/21 09:28 Atorvastatin 40 Mg Tab PO 40 mg DAILY SRAVAN Administration Cilostazol 50 mg 12/14/21 10:00 12/26/21 09:30 Cilostazol 100 Mg Tab PO 50 mg BID SRAVAN Administration Clopidogrel Bisulfate 75 mg 12/14/21 10:00 12/26/21 09:27 Clopidogrel 75 Mg Tab PO 75 mg QDAY SRAVAN Administration Docusate Sodium 100 mg 12/22/21 10:00 12/26/21 09:28 Docusate Sodium 100 Mg Cap PO 100 mg BID SRAVAN Administration Gabapentin 100 mg 12/19/21 10:00 12/26/21 09:27 Gabapentin 100 Mg Cap PO 100 mg BID SRAVAN Administration Hydralazine HCl 10 mg 12/17/21 14:23 12/20/21 18:09 Hydralazine 20 Mg/1 Ml Inj IV 10 mg Q4H PRN Administration Hypertension Cefepime HCl 2 gm in 100 mls @ 200 mls/hr 12/18/21 22:00 12/26/21 09:27 Cefepime/Ns 2 Gm/100 Ml IV 01/05/22 22:29 200 mls/hr Q12HR SRAVAN Administration Protocol Vancomycin HCl 1,250 mg/ 275 mls @ 166.667 mls/hr 12/21/21 06:00 12/26/21 06:11 Sodium Chloride IV 01/05/22 07:38 166.667 mls/hr Q24H SRAVAN Administration Morphine Sulfate 2 mg 12/13/21 23:13 12/24/21 10:53 Morphine 2 Mg/1 Ml Inj IV 2 mg Q4H PRN Administration Pain, Moderate (4-6) Morphine Sulfate 4 mg 12/13/21 23:13 12/26/21 04:41 Morphine 4 Mg/1 Ml Inj IV 4 mg Q4H PRN Administration Pain , Severe (7-10) Naloxone HCl 0.1 mg 12/14/21 15:02 Naloxone 0.4 Mg/1 Ml Inj IV Q2MIN PRN Res Rate </= 8 or 02 SAT < 92% Ondansetron HCl 4 mg 12/14/21 15:02 12/26/21 10:17 Ondansetron 4 Mg/2 Ml Inj IV 4 mg Q8H PRN Administration Nausea And Vomiting Pantoprazole Sodium 40 mg 12/14/21 16:30 12/26/21 09:28 Pantoprazole 40 Mg Tab PO 40 mg BIDAC SRAVAN Administration Senna 17.2 mg 12/22/21 22:00 12/25/21 21:01 Sennosides 8.6 Mg Tab PO 17.2 mg QHS SRAVAN Administration Sodium Chloride 10 ml 12/13/21 23:13 12/24/21 22:02 Sodium Chloride 0.9% 10 Ml Flush Syringe IV 10 ml PRN PRN Administration LINE FLUSH Trazodone HCl 50 mg 12/19/21 22:00 12/25/21 21:02 Trazodone 50 Mg Tab PO 50 mg QHS SRAVAN Administration Venlafaxine HCl 75 mg 12/17/21 10:00 12/26/21 09:28 Venlafaxine 75 Mg Tab PO 75 mg DAILY SRAVAN Administration Nutrition/Malnutrition Assess - Dietary Evaluation Nutrition/Malnutrition Findings: Nutrition Notes Start: 12/14/21 12:00 Freq: Status: Active Protocol: Document 12/21/21 11:08 MERARI (Rec: 12/21/21 11:48 MERARI [id number]) Nutrition Notes Initial or Follow up Reassessment Current Diagnosis Hypertension,Malnutrition, Hyperlipidemia Other Pertinent Diagnosis PVD s/p L-FP Bypass, L-FP Bypass Occlusion, L-Groin Infection, 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 Labs/Tests 12/21: Cl 109.2, Ca 7.5, Mg 1. 6. Pertinent Medications 12/21: Nutritionally unremarkable. Height 5 ft 2 in Weight 40.823 kg [place] Body Weight (kg) 50.00 BMI 16.5 Weight change and time frame No body weight change reported in 1 week. Weight Status Underweight Subjective/Other Information RD consult for malnutrition assessment. Pt's PO intake has imroved, but still Poor (50%) and fairly tolerated, Pt is also taking her dietary supplements , accvording to RN over the phone. Pt is on Room Air, O2 saturation @ 100%, according to Physical Assessment History notes. Pt has missing teeth, according to Physical Assessment History notes. Pt presents L-LE pitting edema 3+, according to Physical Assessment History notes. Pt's last BM was on 12/17, according to Physical Assessment History notes. Procedure on 12/20: Emergent angioplasty, evacuation of L- groin hematoma, and WoundVac replacement, well tolerated, according to Progress notes. Plans for discharge to LTAC or Rehab on 12/21, according to Progress notes. Percent of energy/protein needs met: Prescribed Regular Diet provides for energy/protein needs (2,289 Kcal/89 g) during LOS; additionally, Dietary Supplements will compensate for possible poor or insufficient PO intake of meals with 1,240 Kcal and 65 g of protein. Burn Absent Trauma Absent GI Symptoms None Food Allergy No Skin Integrity/Comment Several L-LE wounds. Current % PO Poor (25-49%) Minimum of two criteria No Fluid Accumulation N/A Reduced [place] Reo Strength N/A (non-severe) Protein-Calorie Malnutrition N\A #2 Nutrition Diagnosis Increased nutrient needs ( specify in comment below) Comments: Protein to support wound healing and compensate for blood loss. Procedure on 12/20: Emergent angioplasty, evacuation of L- groin hematoma, and WoundVac replacement, well tolerated, according to Progress notes. Diagnosis Progress(for reassessment Continues documentation) #1 Nutrition Diagnosis Underweight Diagnosis Progress(for reassessment Continues documentation) Is patient on ventilator? No Is Patient Ambulatory and/or Out of Bed No REE-([place]-confined to bed) 1134.852 Kcal/Kg value to use for calculation 30 Approximate Energy Requirements Using 1225 kcal/Kg Calculation Used for Recommendations Kcal/kg Additional Notes Protein: 1.5-2 g/Kg ABW; 62-84 g/day. Fluids: 1 ml/Kcal, or as per MD. Nutrition Intervention Change Diet Order: Continue Regular Diet as tolerated. Add Supplement/Snack (indicate name/kcal Continue 8 fl oz Ensure Enlive /protein ) ; TID. Start 28.8 g pkt Jeremy; BID. Provides kCal: 1,240 Provides Protein (gm) 65 Goal #1 Compensate, through dietary supplementation, for possible poor or insufficient PO intake of meals during LOS. Goal #2 Support, through dietary supplementation, wound healing processes during LOS. Goal #3 Adjust the dietary intervention to better serve Pt's needs and clinical conditions during LOS. Follow-Up By: 12/28/21 Additional Comments Continue monitoring food tolerance, %PO intake of meals , dietary supplements, and BM.
[2021-12-25] MEDS: SENNOSIDES 8.6 MG TAB PO SCH (21:01)
[2021-12-25] MEDS: traZODone 50 MG TAB PO SCH (21:02)
[2021-12-26] MEDS: MORPHINE 4 MG/1 ML INJ IV PRN ×3 (04:41→20:06)
[2021-12-26 04:55] LABS: Hemoglobin 8.1 gm/dl (10.1-14.3); Mean Corpuscular HGB Conc 34 % (30-34); Mean Corpuscular Volume 89 fl (79-97); Platelet Count 346 K/mm3 (140-440); Red Blood Count 2.71 M/mm3 (3.65-5.03); Red Cell Distribution Width 21.4 % (13.2-15.2)
[2021-12-26 05:13] LABS: Blood Urea Nitrogen 7 mg/dL (7-17); Calcium 7.5 mg/dL (8.4-10.2); Hemolysis Index 13
[2021-12-26 05:16] LABS: BUN/Creatinine Ratio 14
[2021-12-26] MEDS: VANCOMYCIN 1,250 MG in SODIUM CHLORIDE 0.9% 250ML 250 ML IV SCH (06:11)
[2021-12-26] MEDS: GABAPENTIN 100 MG CAP PO SCH ×2 (09:27→21:21)
[2021-12-26] MEDS: CEFEPIME/NS 2 GM/100 ML 2 GM/100 ML BAG IV SCH ×2 (09:27→21:20)
[2021-12-26] MEDS: amLODIPine 5 MG TAB PO SCH (09:27)
[2021-12-26] MEDS: CLOPIDOGREL 75 MG TAB PO SCH (09:27)
[2021-12-26] MEDS: PANTOPRAZOLE 40 MG TAB PO SCH ×2 (09:28→16:45)
[2021-12-26] MEDS: DOCUSATE SODIUM 100 MG CAP PO SCH ×2 (09:28→21:21)
[2021-12-26] MEDS: VENLAFAXINE 75 MG TAB PO SCH (09:28)
[2021-12-26] MEDS: APIXABAN 2.5 MG TAB PO SCH ×2 (09:28→21:21)
[2021-12-26] MEDS: CILOSTAZOL 100 MG TAB PO SCH (09:30)
[2021-12-26] MEDS: ONDANSETRON 4 MG/2 ML INJ IV PRN (10:17)
--- NOTE | 2021-12-26 12:34 | Progress Note ---
Assessment and Plan Assessment and plan: History Interval history: This is a 56-year-old female with PVD s/p femoral-popliteal bypass surgery c/b compartment syndrome s/p fasciotomy, occlusion infection, HTN, CVA, HLD, anemia, neuropathy presented to the emergency department on 12/13 with hemorrhage from her wound VAC site after her home health care nurse changed her wound VAC per patient. Work-up in the emergency department revealed hemoglobin of 6.6 and she was transfused 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 Vascular surgery was consulted and patient was taken to [facility] for repair of femoral artery injury. Patient was admitted to the hospitalist service with consult to CCM. Hospital course to date 12/15: Currently in CCU, decreased urine output reported overnight. We will continue lactated Ringer's. Continue serial H&H. 12/16: patient noted to be anemic and given prbc. repeat post transfusion h/h is 9.10/13.4. 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 12/17: No acute events reported overnight. H&H stable. Transfer to [facility] per vascular request 12/18: Remains stable. Bleeding resolved and H&H remains stable. Awaiting additional wound VAC placement on LLE by wound care. Plan for possible discharge to a rehab facility, case management to arrange. 12/19: Wound VAC malfunctioning this am, saturated dressing noted at the left groin site. Pedal pulses appreciated with a doppler, H&H and VSS remain stable. Wound care contacted for Wound Vac dressing change. Continue PRN analgesia, gabapentin resumed for neuropathy pain. Vascular Surgery is also following. 12/20: S/p emergent angiooplasty, evacuation of left groin hematoma,and Replacement of Wound VAC overnight due to left groin hematoma and bleeding. Patient received 3units of PRBCs and 1unit of FFP. H&H and vital signs stable this am. No s/s of any active bleeding noted. Left groin site and Wound VAC noted with no complications. Patient remains on Pletal, Plavix, and Eliquis per Vascular Surgery. Will continue to trend H&H. Discharge planning to rehab vs LTAC. Case management to arrange 12/21: Remains stable. Left groin site and wound vac remains intact with no complications. Slightly hypertensive this am, will D/C continous IVF continue current antihypertensive therapy. Possible LTAC vs rehab placement, case management to arrange. 12/22: RUTH overnight. Continue current supportive measures. Possible LTAC vs rehab placement, case management to arrange 12/23: Patient continues to show improvement. I did discuss with nurse to keep a record of how much she is eating. Poor wound healing secondary to poor p.o. intake and overall clinical medical condition. Still awaiting placement for a ppropriate disposition. Vascular surgeon did adjust wound management and treatment with wound VAC now in place Continues there are some granulation tissue is noted. Vascular did bridge all 3 incisions to 1 wound VAC. Continue with PT OT treatment to increase activity 12/24: Continue supportive care, replace k, continue to encourage improved PO INTAKE, Awaiting placement for continued wound healing, remains at increase risk of limb loss if no improvement 12/25: no acute events overnight, replete potassium 12/26: Awaiting placement to ltac. nausea reported this AM. Advised RN to admin zofran. Assessment and plan: This is a 56-year-old female with PVD, HTN, HLD, anemia, neuropathy admitted with left femoral artery injury resulting in hemorrhage Neuro: h/o CVA -Reorientation as needed -Maintain sleep-wake cycle -As needed analgesia Cardiac: h/o HTN, HLD, CAD -Antihypertensive regimen adjusted -Blood pressure monitor per protocol -Lipitor Respiratory: h/o nicotine abuse -Currently on room air -Supplemental oxygen as needed -SPO2 monitoring -Pulmonary hygiene GI: Moderate Protein calorie malnutrition -24 hours -665 mL -PPI -Cardiac diet with supplements -BR: colace : Hypokalemia, hypomagnesemia -Monitor intake and output -Renally dose medications -Avoid nephrotoxic medications -Replete potassium and magnesium -Trend BMP ID: Femoral popliteal bypass graft infection -Infectious disease consulted, appreciate recommendation -Antibiotic therapy with cefepime and vancomycin -jail abx: vancomycin 1 g every 24 hours and cefepime 2 g every 12 hours until 01/05/2022 -s/p PICC -f/u blood culture -Monitor WBC and temperature curve Endo: NAD -Avoid hypoglycemia Heme/Vasc: ABLA, (bleeding with exception of left common femoral arterial patch, Leukocytosis, h/o severe PVD s/p left femoral-popliteal bypass with fasciotomy, right lower extremity right revascularization -Presents with a hemoglobin of 7.6-> 11.1 -CT abdomen/pelvis showed small amount of active hemorrhage in the left inguinal region and a large renal hematoma, excessive swelling throughout the entire left leg and 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 -S/p 10 units PRBC, 2 FFP -Vascular surgery and CCM consulted, appreciate recommendations -S/p exploration of left groin with open thrombectomy of left SFA, repair of left common femoral artery, coverage of left femoral artery with muscle flap and wound VAC placement -12/19 s/p emergent angiooplasty, evacuation of left groin hematoma,and Replacement of Wound VAC overnight due to left groin hematoma and bleeding -Continue Pletal, plavix, Eliquis per vascular -s/p Heparin gtt -Trend CBC -Transfuse hemoglobin less than 7 -Continue -SCDs to BLE while in bed Critical Care Billing: The high probability of a clinically significant, sudden or life threatening deterioration of the [vascular] system(s) required my full and direct attention, intervention and personal management. The aggregate critical care time was [60] minutes. This time is in addition to time spent performing reported procedures but includes the following: [x] Data Review and interpretation [x] Patient assessment and monitoring of vital signs [x] Documentation [x] Medication orders and management Disposition Plan: imcu Total Time Spent with Patient (Minutes): 60 History Interval history: Nausea and emesis noted this AM. No complaints of LE pain otherwise. Hospitalist Physical - Physical exam Narrative exam: General appearance: Present: no acute distress, cachectic - EENT Eyes: Present: PERRL, EOM intact ENT: hearing intact, clear oral mucosa, edentulous - Neck Neck: Present: normal ROM - Respiratory Respiratory effort: normal Respiratory: bilateral: CTA - Cardiovascular Rhythm: regular Heart Sounds: Present: S1 & S2. Absent: systolic murmur, diastolic murmur - Extremities Extremities: no ischemia, pulses intact, abnormal (LLE swelling, WoundVac present left thigh wound left calf 1 continues to made left leg area. Wound VAC in place.. Pulses appreciated with a doppler. No complications noted) Extremity abnormal: edema - Peripheral Assessment Left Lower Extremity Edema Type: Pitting Edema Degree: 2+ Capillary Refill: < 3 seconds Skin Temperature: Warm Peripheral Pulses: within normal limits - Abdominal General gastrointestinal: soft, non-tender, non-distended, normal bowel sounds - Integumentary Integumentary: Present: warm, dry - Psychiatric Psychiatric: cooperative - Neurologic Neurologic: CNII-XII intact, no focal deficits, moves all extremities - Constitutional Vitals: Temp Pulse Resp BP Pulse Ox 98.6 F 92 H 12 133/72 94 12/26/21 08:00 12/26/21 12:01 12/26/21 12:01 12/26/21 12:01 12/26/21 12:01 General appearance: Present: no acute distress Results - Labs CBC & Chem 7: 12/26/21 04:18 12/26/21 04:18 Labs: Laboratory Last Values WBC 5.9 K/mm3 (4.5-11.0) 12/26/21 04:18 RBC 2.71 M/mm3 (3.65-5.03) L 12/26/21 04:18 Hgb 8.1 gm/dl (10.1-14.3) L 12/26/21 04:18 Hct 24.0 % (30.3-42.9) L 12/26/21 04:18 MCV 89 fl (79-97) 12/26/21 04:18 MCH 30 pg (28-32) 12/26/21 04:18 MCHC 34 % (30-34) 12/26/21 04:18 RDW 21.4 % (13.2-15.2) H 12/26/21 04:18 Plt Count 346 K/mm3 (140-440) 12/26/21 04:18 Lymph % (Auto) 15.4 % (13.4-35.0) 12/17/21 05:00 [place] % (Auto) 8.9 % (0.0-7.3) H 12/17/21 05:00 Eos % (Auto) 1.7 % (0.0-4.3) 12/17/21 05:00 Baso % (Auto) 1.1 % (0.0-1.8) 12/17/21 05:00 Lymph # (Auto) 1.3 K/mm3 (1.2-5.4) 12/17/21 05:00 [place] # (Auto) 0.7 K/mm3 (0.0-0.8) 12/17/21 05:00 Eos # (Auto) 0.1 K/mm3 (0.0-0.4) 12/17/21 05:00 Baso # (Auto) 0.1 K/mm3 (0.0-0.1) 12/17/21 05:00 Seg Neutrophils % 72.9 % (40.0-70.0) H 12/17/21 05:00 Seg Neutrophils # 6.0 K/mm3 (1.8-7.7) 12/17/21 05:00 PT 16.0 Sec. (12.2-14.9) H 12/21/21 04:43 INR 1.12 (0.87-1.13) 12/21/21 04:43 APTT 38.3 Sec. (24.2-36.6) H 12/21/21 04:43 Fibrinogen 399 mg/dl (211-480) 12/19/21 12:50 Heparin Anti-Xa Level 0.66 U.I./ml (0.3-0.7) 12/14/21 22:43 Sodium 136 mmol/L (137-145) L 12/26/21 04:18 Potassium 3.6 mmol/L (3.6-5.0) 12/26/21 04:18 Chloride 100.7 mmol/L (98-107) 12/26/21 04:18 Carbon Dioxide 30 mmol/L (22-30) 12/26/21 04:18 Anion Gap 9 mmol/L 12/26/21 04:18 BUN 7 mg/dL (7-17) 12/26/21 04:18 Creatinine 0.5 mg/dL (0.6-1.2) L 12/26/21 04:18 Estimated GFR > 60 ml/min 12/26/21 04:18 BUN/Creatinine Ratio 14 % 12/26/21 04:18 Glucose 76 mg/dL (65-100) 12/26/21 04:18 Calcium 7.5 mg/dL (8.4-10.2) L 12/26/21 04:18 Phosphorus 2.90 mg/dL (2.5-4.5) 12/25/21 04:00 Magnesium 1.90 mg/dL (1.7-2.3) 12/26/21 04:18 Total Bilirubin 0.30 mg/dL (0.1-1.2) 12/13/21 18:25 AST 13 units/L (5-40) 12/13/21 18:25 ALT < 5 units/L (7-56) L 12/13/21 18:25 Alkaline Phosphatase 118 units/L (35-129) 12/13/21 18:25 Total Protein 4.6 g/dL (6.3-8.2) L 12/13/21 18:25 Albumin 2.1 g/dL (3.9-5) L 12/13/21 18:25 Albumin/Globulin Ratio 0.8 % 12/13/21 18:25 Vancomycin Trough 15.0 ug/mL (5.0-20.0) 12/26/21 04:18 Blood Type O POSITIVE 12/19/21 17:25 Antibody Screen Negative 12/19/21 17:25 Crossmatch See Detail 12/19/21 17:25 Victor/IV: Voiding Method Diaper Active Medications - Current Medications Current Medications: Generic Name Dose Route Start Last Admin Trade Name Freq PRN Reason Stop Dose Admin Acetaminophen 650 mg 12/13/21 23:13 12/21/21 21:50 Acetaminophen 325 Mg Tab PO 650 mg Q4H PRN Administration Pain MILD(1-3)/Fever >100.5/GONZALEZ Albuterol 2.5 mg 12/13/21 23:13 Albuterol 2.5 Mg/3 Ml Nebu IH Q3HRT PRN Shortness Of Breath Amlodipine Besylate 5 mg 12/19/21 10:00 12/26/21 09:27 Amlodipine 5 Mg Tab PO 5 mg QDAY SRAVAN Administration Apixaban 2.5 mg 12/16/21 22:00 12/26/21 09:28 Apixaban 2.5 Mg Tab PO 2.5 mg Q12HR SRAVAN Administration Protocol Atorvastatin Calcium 40 mg 12/14/21 10:00 12/26/21 09:28 Atorvastatin 40 Mg Tab PO 40 mg DAILY SRAVAN Administration Cilostazol 50 mg 12/14/21 10:00 12/26/21 09:30 Cilostazol 100 Mg Tab PO 50 mg BID SRAVAN Administration Clopidogrel Bisulfate 75 mg 12/14/21 10:00 12/26/21 09:27 Clopidogrel 75 Mg Tab PO 75 mg QDAY SRAVAN Administration Docusate Sodium 100 mg 12/22/21 10:00 12/26/21 09:28 Docusate Sodium 100 Mg Cap PO 100 mg BID SRAVAN Administration Gabapentin 100 mg 12/19/21 10:00 12/26/21 09:27 Gabapentin 100 Mg Cap PO 100 mg BID SRAVAN Administration Hydralazine HCl 10 mg 12/17/21 14:23 12/20/21 18:09 Hydralazine 20 Mg/1 Ml Inj IV 10 mg Q4H PRN Administration Hypertension Cefepime HCl 2 gm in 100 mls @ 200 mls/hr 12/18/21 22:00 12/26/21 09:27 Cefepime/Ns 2 Gm/100 Ml IV 01/05/22 22:29 200 mls/hr Q12HR SRAVAN Administration Protocol Vancomycin HCl 1,250 mg/ 275 mls @ 166.667 mls/hr 12/21/21 06:00 12/26/21 06:11 Sodium Chloride IV 01/05/22 07:38 166.667 mls/hr Q24H SRAVAN Administration Morphine Sulfate 2 mg 12/13/21 23:13 12/24/21 10:53 Morphine 2 Mg/1 Ml Inj IV 2 mg Q4H PRN Administration Pain, Moderate (4-6) Morphine Sulfate 4 mg 12/13/21 23:13 12/26/21 04:41 Morphine 4 Mg/1 Ml Inj IV 4 mg Q4H PRN Administration Pain , Severe (7-10) Naloxone HCl 0.1 mg 12/14/21 15:02 Naloxone 0.4 Mg/1 Ml Inj IV Q2MIN PRN Res Rate </= 8 or 02 SAT < 92% Ondansetron HCl 4 mg 12/14/21 15:02 12/26/21 10:17 Ondansetron 4 Mg/2 Ml Inj IV 4 mg Q8H PRN Administration Nausea And Vomiting Pantoprazole Sodium 40 mg 12/14/21 16:30 12/26/21 09:28 Pantoprazole 40 Mg Tab PO 40 mg BIDAC SRAVAN Administration Senna 17.2 mg 12/22/21 22:00 12/25/21 21:01 Sennosides 8.6 Mg Tab PO 17.2 mg QHS SRAVAN Administration Sodium Chloride 10 ml 12/13/21 23:13 12/24/21 22:02 Sodium Chloride 0.9% 10 Ml Flush Syringe IV 10 ml PRN PRN Administration LINE FLUSH Trazodone HCl 50 mg 12/19/21 22:00 12/25/21 21:02 Trazodone 50 Mg Tab PO 50 mg QHS SRAVAN Administration Venlafaxine HCl 75 mg 12/17/21 10:00 12/26/21 09:28 Venlafaxine 75 Mg Tab PO 75 mg DAILY SRAVAN Administration Nutrition/Malnutrition Assess - Dietary Evaluation Nutrition/Malnutrition Findings: Nutrition Notes Start: 12/14/21 12:00 Freq: Status: Active Protocol: Document 12/21/21 11:08 MERARI (Rec: 12/21/21 11:48 MERARI [email or web address]) Nutrition Notes Initial or Follow up Reassessment Current Diagnosis Hypertension,Malnutrition, Hyperlipidemia Other Pertinent Diagnosis PVD s/p L-FP Bypass, L-FP Bypass Occlusion, L-Groin Infection, 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 Labs/Tests 12/21: Cl 109.2, Ca 7.5, Mg 1. 6. Pertinent Medications 12/21: Nutritionally unremarkable. Height 5 ft 2 in Weight 40.823 kg [place] Body Weight (kg) 50.00 BMI 16.5 Weight change and time frame No body weight change reported in 1 week. Weight Status Underweight Subjective/Other Information RD consult for malnutrition assessment. Pt's PO intake has imroved, but still Poor (50%) and fairly tolerated, Pt is also taking her dietary supplements , accvording to RN over the phone. Pt is on Room Air, O2 saturation @ 100%, according to Physical Assessment History notes. Pt has missing teeth, according to Physical Assessment History notes. Pt presents L-LE pitting edema 3+, according to Physical Assessment History notes. Pt's last BM was on 12/17, according to Physical Assessment History notes. Procedure on 12/20: Emergent angioplasty, evacuation of L- groin hematoma, and WoundVac replacement, well tolerated, according to Progress notes. Plans for discharge to LTAC or Rehab on 12/21, according to Progress notes. Percent of energy/protein needs met: Prescribed Regular Diet provides for energy/protein needs (2,289 Kcal/89 g) during LOS; additionally, Dietary Supplements will compensate for possible poor or insufficient PO intake of meals with 1,240 Kcal and 65 g of protein. Burn Absent Trauma Absent GI Symptoms None Food Allergy No Skin Integrity/Comment Several L-LE wounds. Current % PO Poor (25-49%) Minimum of two criteria No Fluid Accumulation N/A Reduced Cut Off Man Strength N/A (non-severe) Protein-Calorie Malnutrition N\A #2 Nutrition Diagnosis Increased nutrient needs ( specify in comment below) Comments: Protein to support wound healing and compensate for blood loss. Procedure on 12/20: Emergent angioplasty, evacuation of L- groin hematoma, and WoundVac replacement, well tolerated, according to Progress notes. Diagnosis Progress(for reassessment Continues documentation) #1 Nutrition Diagnosis Underweight Diagnosis Progress(for reassessment Continues documentation) Is patient on ventilator? No Is Patient Ambulatory and/or Out of Bed No REE-([facility]-confined to bed) 1134.852 Kcal/Kg value to use for calculation 30 Approximate Energy Requirements Using 1225 kcal/Kg Calculation Used for Recommendations Kcal/kg Additional Notes Protein: 1.5-2 g/Kg ABW; 62-84 g/day. Fluids: 1 ml/Kcal, or as per MD. Nutrition Intervention Change Diet Order: Continue Regular Diet as tolerated. Add Supplement/Snack (indicate name/kcal Continue 8 fl oz Ensure Enlive /protein ) ; TID. Start 28.8 g pkt Jeremy; BID. Provides kCal: 1,240 Provides Protein (gm) 65 Goal #1 Compensate, through dietary supplementation, for possible poor or insufficient PO intake of meals during LOS. Goal #2 Support, through dietary supplementation, wound healing processes during LOS. Goal #3 Adjust the dietary intervention to better serve Pt's needs and clinical conditions during LOS. Follow-Up By: 12/28/21 Additional Comments Continue monitoring food tolerance, %PO intake of meals , dietary supplements, and BM.
--- NOTE | 2021-12-26 15:24 | Progress Note ---
Assessment and Plan Patient doing well but need to increase nutritional intake Wound vac change per Wound Care nurse Increase activity with physical therapy Okay to discharge, from a vascular surgery standpoint, when medically stable Subjective Date of service: 12/26/21 Principal diagnosis: Acute arterial bleeding Interval history: Patient without significant events overnight. No complaints at this time. Objective - Constitutional Vitals: Vital Signs - 12hr 12/26/21 12/26/21 12/26/21 04:00 05:00 06:00 Temperature 98.5 F Pulse Rate 80 79 78 Pulse Rate [ 77 From Monitor] Respiratory 6 L 8 L 7 L Rate Respiratory 16 Rate [Left Leg] Blood Pressure 144/77 120/61 160/74 O2 Sat by Pulse 94 94 98 Oximetry 12/26/21 12/26/21 12/26/21 07:00 08:00 09:00 Temperature 98.6 F Pulse Rate 82 84 92 H Pulse Rate [ 91 H From Monitor] Respiratory 10 L 12 17 Rate Respiratory Rate [Left Leg] Blood Pressure 166/78 149/87 206/167 O2 Sat by Pulse 97 92 95 Oximetry 12/26/21 12/26/21 12/26/21 09:27 10:01 11:00 Temperature Pulse Rate 89 98 H Pulse Rate [ From Monitor] Respiratory 17 13 Rate Respiratory Rate [Left Leg] Blood Pressure 206/167 150/84 140/74 O2 Sat by Pulse 96 97 Oximetry 12/26/21 12/26/21 12/26/21 12:00 12:01 13:01 Temperature 98.9 F Pulse Rate 94 H 92 H 92 H Pulse Rate [ 92 H From Monitor] Respiratory 13 12 11 L Rate Respiratory Rate [Left Leg] Blood Pressure 133/72 150/85 O2 Sat by Pulse 97 94 97 Oximetry 12/26/21 14:00 Temperature Pulse Rate 88 Pulse Rate [ From Monitor] Respiratory 12 Rate Respiratory Rate [Left Leg] Blood Pressure 140/79 O2 Sat by Pulse 98 Oximetry General appearance: Present: no acute distress - Respiratory Respiratory effort: normal - Cardiovascular Rhythm: regular Extremities: pulses intact (palpable left DP/PT), abnormal (left leg wound vac with adequate seal) - Gastrointestinal General gastrointestinal: Present: soft, non-tender, non-distended Rectal Exam: deferred - Genitourinary Female genitourinary: deferred - Labs CBC & Chem 7: 12/26/21 04:18 12/26/21 04:18 Labs: Abnormal lab results 12/26/21 12/26/21 Range/Units 04:18 04:18 RBC 2.71 L (3.65-5.03) M/mm3 Hgb 8.1 L (10.1-14.3) gm/dl Hct 24.0 L (30.3-42.9) % RDW 21.4 H (13.2-15.2) % Sodium 136 L (137-145) mmol/L Creatinine 0.5 L (0.6-1.2) mg/dL Calcium 7.5 L (8.4-10.2) mg/dL Medications & Allergies - Medications Allergies/Adverse Reactions: Allergies No Known Allergies Allergy (Verified 12/13/21 17:26) Home Medications: Home Medications Medication Instructions Recorded Confirmed Last Taken Type Apixaban [Eliquis] 2.5 mg PO Q12HR #60 tab 09/01/21 12/14/21 12/13/21 Rx AtorvaSTATin [Lipitor] 40 mg PO DAILY 09/01/21 12/14/21 12/14/21 History Gabapentin 100 mg PO BID 09/01/21 12/14/21 12/13/21 History Pantoprazole [Protonix TAB] 40 mg PO QDAY #90 tablet 09/01/21 12/14/21 12/13/21 Rx carvediloL [Coreg] 25 mg PO BID 09/01/21 12/14/21 12/13/21 History traZODone [Desyrel] 100 mg PO QHS 09/01/21 12/14/21 12/13/21 History Venlafaxine [Effexor] 75 mg PO DAILY 11/02/21 12/14/21 12/13/21 History Aspirin EC [Halfprin EC] 81 mg PO QDAY #30 tablet 12/11/21 12/14/21 12/13/21 Rx Clopidogrel [Plavix] 75 mg PO QDAY #90 tablet 12/11/21 12/14/21 12/14/21 Rx Docusate Sodium [Colace CAP] 100 mg PO BID #60 capsule 12/11/21 12/14/21 12/13/21 Rx cilostazoL [Pletal] 50 mg PO BID #60 tab 12/11/21 12/14/21 12/13/21 Rx levoFLOXacin [Levaquin] 750 mg PO QDAY #7 tablet 12/11/21 12/14/21 12/13/21 Rx traMADoL [Ultram] 50 mg PO Q6HR PRN #20 tablet 12/11/21 12/14/21 12/13/21 Rx Active Medications: Generic Name Dose Route Start Last Admin Trade Name Parishq PRN Reason Stop Dose Admin Acetaminophen 650 mg 12/13/21 23:13 12/21/21 21:50 Acetaminophen 325 Mg Tab PO 650 mg Q4H PRN Administration Pain MILD(1-3)/Fever >100.5/GONZALEZ Albuterol 2.5 mg 12/13/21 23:13 Albuterol 2.5 Mg/3 Ml Nebu IH Q3HRT PRN Shortness Of Breath Amlodipine Besylate 5 mg 12/19/21 10:00 12/26/21 09:27 Amlodipine 5 Mg Tab PO 5 mg QDAY SRAVAN Administration Apixaban 2.5 mg 12/16/21 22:00 12/26/21 09:28 Apixaban 2.5 Mg Tab PO 2.5 mg Q12HR SRAVAN Administration Protocol Atorvastatin Calcium 40 mg 12/14/21 10:00 12/26/21 09:28 Atorvastatin 40 Mg Tab PO 40 mg DAILY SRAVAN Administration Cilostazol 50 mg 12/14/21 10:00 12/26/21 09:30 Cilostazol 100 Mg Tab PO 50 mg BID SRAVAN Administration Clopidogrel Bisulfate 75 mg 12/14/21 10:00 12/26/21 09:27 Clopidogrel 75 Mg Tab PO 75 mg QDAY SRAVAN Administration Docusate Sodium 100 mg 12/22/21 10:00 12/26/21 09:28 Docusate Sodium 100 Mg Cap PO 100 mg BID SRAVAN Administration Gabapentin 100 mg 12/19/21 10:00 12/26/21 09:27 Gabapentin 100 Mg Cap PO 100 mg BID SRAVAN Administration Hydralazine HCl 10 mg 12/17/21 14:23 12/20/21 18:09 Hydralazine 20 Mg/1 Ml Inj IV 10 mg Q4H PRN Administration Hypertension Cefepime HCl 2 gm in 100 mls @ 200 mls/hr 12/18/21 22:00 12/26/21 09:27 Cefepime/Ns 2 Gm/100 Ml IV 01/05/22 22:29 200 mls/hr Q12HR SRAVAN Administration Protocol Vancomycin HCl 1,250 mg/ 275 mls @ 166.667 mls/hr 12/21/21 06:00 12/26/21 06:11 Sodium Chloride IV 01/05/22 07:38 166.667 mls/hr Q24H SRAVAN Administration Morphine Sulfate 2 mg 12/13/21 23:13 12/24/21 10:53 Morphine 2 Mg/1 Ml Inj IV 2 mg Q4H PRN Administration Pain, Moderate (4-6) Morphine Sulfate 4 mg 12/13/21 23:13 12/26/21 12:29 Morphine 4 Mg/1 Ml Inj IV 4 mg Q4H PRN Administration Pain , Severe (7-10) Naloxone HCl 0.1 mg 12/14/21 15:02 Naloxone 0.4 Mg/1 Ml Inj IV Q2MIN PRN Res Rate </= 8 or 02 SAT < 92% Ondansetron HCl 4 mg 12/14/21 15:02 12/26/21 10:17 Ondansetron 4 Mg/2 Ml Inj IV 4 mg Q8H PRN Administration Nausea And Vomiting Pantoprazole Sodium 40 mg 12/14/21 16:30 12/26/21 09:28 Pantoprazole 40 Mg Tab PO 40 mg BIDAC SRAVAN Administration Senna 17.2 mg 12/22/21 22:00 12/25/21 21:01 Sennosides 8.6 Mg Tab PO 17.2 mg QHS SRAVAN Administration Sodium Chloride 10 ml 12/13/21 23:13 12/24/21 22:02 Sodium Chloride 0.9% 10 Ml Flush Syringe IV 10 ml PRN PRN Administration LINE FLUSH Trazodone HCl 50 mg 12/19/21 22:00 12/25/21 21:02 Trazodone 50 Mg Tab PO 50 mg QHS SRAVAN Administration Venlafaxine HCl 75 mg 12/17/21 10:00 12/26/21 09:28 Venlafaxine 75 Mg Tab PO 75 mg DAILY SRAVAN Administration
[2021-12-26] MEDS: traZODone 50 MG TAB PO SCH (21:21)
[2021-12-26] MEDS: SENNOSIDES 8.6 MG TAB PO SCH (21:21)
[2021-12-27] MEDS: CILOSTAZOL 100 MG TAB PO SCH ×3 (00:13→21:40)
[2021-12-27] MEDS: MORPHINE 4 MG/1 ML INJ IV PRN ×4 (04:57→19:10)
[2021-12-27] MEDS: VANCOMYCIN 1,250 MG in SODIUM CHLORIDE 0.9% 250ML 250 ML IV SCH (05:00)
[2021-12-27] MEDS: APIXABAN 2.5 MG TAB PO SCH ×2 (10:18→21:42)
[2021-12-27] MEDS: GABAPENTIN 100 MG CAP PO SCH ×2 (10:18→21:42)
[2021-12-27] MEDS: CLOPIDOGREL 75 MG TAB PO SCH (10:18)
[2021-12-27] MEDS: amLODIPine 5 MG TAB PO SCH (10:18)
[2021-12-27] MEDS: DOCUSATE SODIUM 100 MG CAP PO SCH ×2 (10:18→21:43)
[2021-12-27] MEDS: VENLAFAXINE 75 MG TAB PO SCH (10:18)
[2021-12-27] MEDS: CEFEPIME/NS 2 GM/100 ML 2 GM/100 ML BAG IV SCH ×2 (10:19→21:36)
[2021-12-27] MEDS: PANTOPRAZOLE 40 MG TAB PO SCH ×2 (10:22→17:06)
--- NOTE | 2021-12-27 11:05 | Progress Note ---
Assessment and Plan Doing well overall Wound vac changes per wound care nurse Transfer to Rehab when medically stable Subjective Date of service: 12/27/21 Principal diagnosis: Acute arterial bleeding Interval history: No significant events Objective - Constitutional Vitals: Vital Signs - 12hr 12/26/21 12/27/21 12/27/21 23:28 00:00 01:00 Temperature 97 F L Pulse Rate 81 81 82 Pulse Rate [ 76 From Monitor] Respiratory 7 L 14 6 L Rate Blood Pressure 139/75 136/69 129/73 O2 Sat by Pulse 97 97 97 Oximetry 12/27/21 12/27/21 12/27/21 02:00 03:00 04:00 Temperature 98.2 F Pulse Rate 82 78 80 Pulse Rate [ 76 From Monitor] Respiratory 7 L 10 L 14 Rate Blood Pressure 140/71 135/73 141/77 O2 Sat by Pulse 99 97 97 Oximetry 12/27/21 12/27/21 12/27/21 05:00 06:00 07:01 Temperature Pulse Rate 77 73 77 Pulse Rate [ From Monitor] Respiratory 7 L 7 L 9 L Rate Blood Pressure 142/68 136/61 157/74 O2 Sat by Pulse 94 97 94 Oximetry 12/27/21 12/27/21 12/27/21 08:00 09:00 10:01 Temperature 97.9 F Pulse Rate 77 78 89 Pulse Rate [ 92 H From Monitor] Respiratory 6 L 10 L 17 Rate Blood Pressure 148/79 148/79 139/85 O2 Sat by Pulse 95 97 97 Oximetry 12/27/21 10:18 Temperature Pulse Rate 93 H Pulse Rate [ From Monitor] Respiratory Rate Blood Pressure 139/85 O2 Sat by Pulse Oximetry General appearance: Present: no acute distress - Cardiovascular Rhythm: regular Extremities: pulses intact (palpable left DP), normal temperature (bilateral feet), abnormal (left leg wound vac intact) Extremity abnormal: black (stable right heel eschar) - Labs CBC & Chem 7: 12/26/21 04:18 12/26/21 04:18 Medications & Allergies - Medications Allergies/Adverse Reactions: Allergies No Known Allergies Allergy (Verified 12/13/21 17:26) Home Medications: Home Medications Medication Instructions Recorded Confirmed Last Taken Type Apixaban [Eliquis] 2.5 mg PO Q12HR #60 tab 09/01/21 12/14/21 12/13/21 Rx AtorvaSTATin [Lipitor] 40 mg PO DAILY 09/01/21 12/14/21 12/14/21 History Gabapentin 100 mg PO BID 09/01/21 12/14/21 12/13/21 History Pantoprazole [Protonix TAB] 40 mg PO QDAY #90 tablet 09/01/21 12/14/21 12/13/21 Rx carvediloL [Coreg] 25 mg PO BID 09/01/21 12/14/21 12/13/21 History traZODone [Desyrel] 100 mg PO QHS 09/01/21 12/14/21 12/13/21 History Venlafaxine [Effexor] 75 mg PO DAILY 11/02/21 12/14/21 12/13/21 History Aspirin EC [Halfprin EC] 81 mg PO QDAY #30 tablet 12/11/21 12/14/21 12/13/21 Rx Clopidogrel [Plavix] 75 mg PO QDAY #90 tablet 12/11/21 12/14/21 12/14/21 Rx Docusate Sodium [Colace CAP] 100 mg PO BID #60 capsule 12/11/21 12/14/2111/18 Rx cilostazoL [Pletal] 50 mg PO BID #60 tab 12/11/21 12/14/21 12/13/21 Rx levoFLOXacin [Levaquin] 750 mg PO QDAY #7 tablet 12/11/21 12/14/21 12/13/21 Rx traMADoL [Ultram] 50 mg PO Q6HR PRN #20 tablet 12/11/21 12/14/21 12/13/21 Rx Active Medications: Generic Name Dose Route Start Last Admin Trade Name Parishq PRN Reason Stop Dose Admin Acetaminophen 650 mg 12/13/21 23:13 12/21/21 21:50 Acetaminophen 325 Mg Tab PO 650 mg Q4H PRN Administration Pain MILD(1-3)/Fever >100.5/GONZALEZ Albuterol 2.5 mg 12/13/21 23:13 Albuterol 2.5 Mg/3 Ml Nebu IH Q3HRT PRN Shortness Of Breath Amlodipine Besylate 5 mg 12/19/21 10:00 12/27/21 10:18 Amlodipine 5 Mg Tab PO 5 mg QDAY SRAVAN Administration Apixaban 2.5 mg 12/16/21 22:00 12/27/21 10:18 Apixaban 2.5 Mg Tab PO 2.5 mg Q12HR SRAVAN Administration Protocol Atorvastatin Calcium 40 mg 12/14/21 10:00 12/27/21 10:17 Atorvastatin 40 Mg Tab PO 40 mg DAILY SRAVAN Administration Cilostazol 50 mg 12/14/21 10:00 12/27/21 10:18 Cilostazol 100 Mg Tab PO 50 mg BID SRAVAN Administration Clopidogrel Bisulfate 75 mg 12/14/21 10:00 12/27/21 10:18 Clopidogrel 75 Mg Tab PO 75 mg QDAY SRAVAN Administration Docusate Sodium 100 mg 12/22/21 10:00 12/27/21 10:18 Docusate Sodium 100 Mg Cap PO 100 mg BID SRAVAN Administration Gabapentin 100 mg 12/19/21 10:00 12/27/21 10:18 Gabapentin 100 Mg Cap PO 100 mg BID SRAVAN Administration Hydralazine HCl 10 mg 12/17/21 14:23 12/20/21 18:09 Hydralazine 20 Mg/1 Ml Inj IV 10 mg Q4H PRN Administration Hypertension Cefepime HCl 2 gm in 100 mls @ 200 mls/hr 12/18/21 22:00 12/27/21 10:19 Cefepime/Ns 2 Gm/100 Ml IV 01/05/22 22:29 200 mls/hr Q12HR SRAVAN Administration Protocol Vancomycin HCl 1,250 mg/ 275 mls @ 166.667 mls/hr 12/21/21 06:00 12/27/21 05:00 Sodium Chloride IV 01/05/22 07:38 166.667 mls/hr Q24H SRAVAN Administration Morphine Sulfate 2 mg 12/13/21 23:13 12/24/21 10:53 Morphine 2 Mg/1 Ml Inj IV 2 mg Q4H PRN Administration Pain, Moderate (4-6) Morphine Sulfate 4 mg 12/13/21 23:13 12/27/21 10:17 Morphine 4 Mg/1 Ml Inj IV 4 mg Q4H PRN Administration Pain , Severe (7-10) Naloxone HCl 0.1 mg 12/14/21 15:02 Naloxone 0.4 Mg/1 Ml Inj IV Q2MIN PRN Res Rate </= 8 or 02 SAT < 92% Ondansetron HCl 4 mg 12/14/21 15:02 12/26/21 10:17 Ondansetron 4 Mg/2 Ml Inj IV 4 mg Q8H PRN Administration Nausea And Vomiting Pantoprazole Sodium 40 mg 12/14/21 16:30 12/27/21 10:22 Pantoprazole 40 Mg Tab PO 40 mg BIDAC SRAVAN Administration Senna 17.2 mg 12/22/21 22:00 12/26/21 21:21 Sennosides 8.6 Mg Tab PO 17.2 mg QHS SRAVAN Administration Sodium Chloride 10 ml 12/13/21 23:13 12/24/21 22:02 Sodium Chloride 0.9% 10 Ml Flush Syringe IV 10 ml PRN PRN Administration LINE FLUSH Trazodone HCl 50 mg 12/19/21 22:00 12/26/21 21:21 Trazodone 50 Mg Tab PO 50 mg QHS SRAVAN Administration Venlafaxine HCl 75 mg 12/17/21 10:00 12/27/21 10:18 Venlafaxine 75 Mg Tab PO 75 mg DAILY SRAVAN Administration
--- NOTE | 2021-12-27 16:26 | Progress Note ---
Assessment and Plan Assessment and plan: History Interval history: This is a 56-year-old female with PVD s/p femoral-popliteal bypass surgery c/b compartment syndrome s/p fasciotomy, occlusion infection, HTN, CVA, HLD, anemia, neuropathy presented to the emergency department on 12/13 with hemorrhage from her wound VAC site after her home health care nurse changed her wound VAC per patient. Work-up in the emergency department revealed hemoglobin of 6.6 and she was transfused 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 Vascular surgery was consulted and patient was taken to microbiological laboratory technician for repair of femoral artery injury. Patient was admitted to the hospitalist service with consult to CCM. Hospital course to date 12/15: Currently in CCU, decreased urine output reported overnight. We will continue lactated Ringer's. Continue serial H&H. 12/16: patient noted to be anemic and given prbc. repeat post transfusion h/h is 9.10/13.4. Will need meterman abx therefore PICC ordered. 12/17: No acute events reported overnight. H&H stable. Transfer to [facility] per vascular request 12/18: Remains stable. Bleeding resolved and H&H remains stable. Awaiting additional wound VAC placement on LLE by wound care. Plan for possible discharge to a rehab facility, case management to arrange. 12/19: Wound VAC malfunctioning this am, saturated dressing noted at the left groin site. Pedal pulses appreciated with a doppler, H&H and VSS remain stable. Wound care contacted for Wound Vac dressing change. Continue PRN analgesia, gabapentin resumed for neuropathy pain. Vascular Surgery is also following. 12/20: S/p emergent angiooplasty, evacuation of left groin hematoma,and Replacement of Wound VAC overnight due to left groin hematoma and bleeding. Patient received 3units of PRBCs and 1unit of FFP. H&H and vital signs stable this am. No s/s of any active bleeding noted. Left groin site and Wound VAC noted with no complications. Patient remains on Pletal, Plavix, and Eliquis per Vascular Surgery. Will continue to trend H&H. Discharge planning to rehab vs LTAC. Case management to arrange 12/21: Remains stable. Left groin site and wound vac remains intact with no complications. Slightly hypertensive this am, will D/C continous IVF continue current antihypertensive therapy. Possible LTAC vs rehab placement, case management to arrange. 12/22: RUTH overnight. Continue current supportive measures. Possible LTAC vs rehab placement, case management to arrange 12/23: Patient continues to show improvement. I did discuss with nurse to keep a record of how much she is eating. Poor wound healing secondary to poor p.o. intake and overall clinical medical condition. Still awaiting placement for a ppropriate disposition. Vascular surgeon did adjust wound management and treatment with wound VAC now in place Continues there are some granulation tissue is noted. Vascular did bridge all 3 incisions to 1 wound VAC. Continue with PT OT treatment to increase activity 12/24: Continue supportive care, replace k, continue to encourage improved PO INTAKE, Awaiting placement for continued wound healing, remains at increase risk of limb loss if no improvement 12/25: no acute events overnight, replete potassium 12/26: Awaiting placement to ltac. nausea reported this AM. Advised RN to admin zofran. 12/27: Declined by LTAC. Will d/w CM re: placement options. Assessment and plan: This is a 56-year-old female with PVD, HTN, HLD, anemia, neuropathy admitted with left femoral artery injury resulting in hemorrhage Neuro: h/o CVA -Reorientation as needed -Maintain sleep-wake cycle -As needed analgesia Cardiac: h/o HTN, HLD, CAD -Antihypertensive regimen adjusted -Blood pressure monitor per protocol -Lipitor Respiratory: h/o nicotine abuse -Currently on room air -Supplemental oxygen as needed -SPO2 monitoring -Pulmonary hygiene GI: Moderate Protein calorie malnutrition -24 hours -665 mL -PPI -Cardiac diet with supplements -BR: colace : Hypokalemia, hypomagnesemia -Monitor intake and output -Renally dose medications -Avoid nephrotoxic medications -Replete potassium and magnesium -Trend BMP ID: Femoral popliteal bypass graft infection -Infectious disease consulted, appreciate recommendation -Antibiotic therapy with cefepime and vancomycin -meterman abx: vancomycin 1 g every 24 hours and cefepime 2 g every 12 hours until 01/05/2022 -s/p PICC -f/u blood culture -Monitor WBC and temperature curve Endo: NAD -Avoid hypoglycemia Heme/Vasc: ABLA, (bleeding with exception of left common femoral arterial patch, Leukocytosis, h/o severe PVD s/p left femoral-popliteal bypass with fasciotomy, right lower extremity right revascularization -Presents with a hemoglobin of 7.6-> 11.1 -CT abdomen/pelvis showed small amount of active hemorrhage in the left inguinal region and a large renal hematoma, excessive swelling throughout the entire left leg and 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 -S/p 10 units PRBC, 2 FFP -Vascular surgery and CCM consulted, appreciate recommendations -S/p exploration of left groin with open thrombectomy of left SFA, repair of left common femoral artery, coverage of left femoral artery with muscle flap and wound VAC placement -12/19 s/p emergent angiooplasty, evacuation of left groin hematoma,and Repla cement of Wound VAC overnight due to left groin hematoma and bleeding -Continue Pletal, plavix, Eliquis per vascular -s/p Heparin gtt -Trend CBC -Transfuse hemoglobin less than 7 -Continue -SCDs to BLE while in bed Critical Care Billing: The high probability of a clinically significant, sudden or life threatening deterioration of the [vascular] system(s) required my full and direct attention, intervention and personal management. The aggregate critical care time was [60] minutes. This time is in addition to time spent performing reported procedures but includes the following: [x] Data Review and interpretation [x] Patient assessment and monitoring of vital signs [x] Documentation [x] Medication orders and management Disposition Plan: imcu Total Time Spent with Patient (Minutes): 60 History Interval history: No acute complaints. Hospitalist Physical - Physical exam Narrative exam: General appearance: Present: no acute distress, cachectic - EENT Eyes: Present: PERRL, EOM intact ENT: hearing intact, clear oral mucosa, edentulous - Neck Neck: Present: normal ROM - Respiratory Respiratory effort: normal Respiratory: bilateral: CTA - Cardiovascular Rhythm: regular Heart Sounds: Present: S1 & S2. Absent: systolic murmur, diastolic murmur - Extremities Extremities: no ischemia, pulses intact, abnormal (LLE swelling, WoundVac present left thigh wound left calf 1 continues to made left leg area. Wound VAC in place.. Pulses appreciated with a doppler. No complications noted) Extremity abnormal: edema - Peripheral Assessment Left Lower Extremity Edema Type: Pitting Edema Degree: 2+ Capillary Refill: < 3 seconds Skin Temperature: Warm Peripheral Pulses: within normal limits - Abdominal General gastrointestinal: soft, non-tender, non-distended, normal bowel sounds - Integumentary Integumentary: Present: warm, dry - Psychiatric Psychiatric: cooperative - Neurologic Neurologic: CNII-XII intact, no focal deficits, moves all extremities - Constitutional Vitals: Temp Pulse Resp BP Pulse Ox 98.0 F 93 H 9 L 129/65 97 12/27/21 12:00 12/27/21 15:00 12/27/21 15:00 12/27/21 15:00 12/27/21 15:00 General appearance: Present: no acute distress Results - Labs CBC & Chem 7: 12/26/21 04:18 12/26/21 04:18 Labs: Laboratory Last Values WBC 5.9 K/mm3 (4.5-11.0) 12/26/21 04:18 RBC 2.71 M/mm3 (3.65-5.03) L 12/26/21 04:18 Hgb 8.1 gm/dl (10.1-14.3) L 12/26/21 04:18 Hct 24.0 % (30.3-42.9) L 12/26/21 04:18 MCV 89 fl (79-97) 12/26/21 04:18 MCH 30 pg (28-32) 12/26/21 04:18 MCHC 34 % (30-34) 12/26/21 04:18 RDW 21.4 % (13.2-15.2) H 12/26/21 04:18 Plt Count 346 K/mm3 (140-440) 12/26/21 04:18 Lymph % (Auto) 15.4 % (13.4-35.0) 12/17/21 05:00 [place] % (Auto) 8.9 % (0.0-7.3) H 12/17/21 05:00 Eos % (Auto) 1.7 % (0.0-4.3) 12/17/21 05:00 Baso % (Auto) 1.1 % (0.0-1.8) 12/17/21 05:00 Lymph # (Auto) 1.3 K/mm3 (1.2-5.4) 12/17/21 05:00 [place] # (Auto) 0.7 K/mm3 (0.0-0.8) 12/17/21 05:00 Eos # (Auto) 0.1 K/mm3 (0.0-0.4) 12/17/21 05:00 Baso # (Auto) 0.1 K/mm3 (0.0-0.1) 12/17/21 05:00 Seg Neutrophils % 72.9 % (40.0-70.0) H 12/17/21 05:00 Seg Neutrophils # 6.0 K/mm3 (1.8-7.7) 12/17/21 05:00 PT 16.0 Sec. (12.2-14.9) H 12/21/21 04:43 INR 1.12 (0.87-1.13) 12/21/21 04:43 APTT 38.3 Sec. (24.2-36.6) H 12/21/21 04:43 Fibrinogen 399 mg/dl (211-480) 12/19/21 12:50 Heparin Anti-Xa Level 0.66 U.I./ml (0.3-0.7) 12/14/21 22:43 Sodium 136 mmol/L (137-145) L 12/26/21 04:18 Potassium 3.6 mmol/L (3.6-5.0) 12/26/21 04:18 Chloride 100.7 mmol/L (98-107) 12/26/21 04:18 Carbon Dioxide 30 mmol/L (22-30) 12/26/21 04:18 Anion Gap 9 mmol/L 12/26/21 04:18 BUN 7 mg/dL (7-17) 12/26/21 04:18 Creatinine 0.5 mg/dL (0.6-1.2) L 12/26/21 04:18 Estimated GFR > 60 ml/min 12/26/21 04:18 BUN/Creatinine Ratio 14 % 12/26/21 04:18 Glucose 76 mg/dL (65-100) 12/26/21 04:18 Calcium 7.5 mg/dL (8.4-10.2) L 12/26/21 04:18 Phosphorus 2.90 mg/dL (2.5-4.5) 12/25/21 04:00 Magnesium 1.90 mg/dL (1.7-2.3) 12/26/21 04:18 Total Bilirubin 0.30 mg/dL (0.1-1.2) 12/13/21 18:25 AST 13 units/L (5-40) 12/13/21 18:25 ALT < 5 units/L (7-56) L 12/13/21 18:25 Alkaline Phosphatase 118 units/L (35-129) 12/13/21 18:25 Total Protein 4.6 g/dL (6.3-8.2) L 12/13/21 18:25 Albumin 2.1 g/dL (3.9-5) L 12/13/21 18:25 Albumin/Globulin Ratio 0.8 % 12/13/21 18:25 Vancomycin Trough 15.0 ug/mL (5.0-20.0) 12/26/21 04:18 Blood Type O POSITIVE 12/19/21 17:25 Antibody Screen Negative 12/19/21 17:25 Crossmatch See Detail 12/19/21 17:25 Victor/IV: Voiding Method Diaper Active Medications - Current Medications Current Medications: Generic Name Dose Route Start Last Admin Trade Name Freq PRN Reason Stop Dose Admin Acetaminophen 650 mg 12/13/21 23:13 12/21/21 21:50 Acetaminophen 325 Mg Tab PO 650 mg Q4H PRN Administration Pain MILD(1-3)/Fever >100.5/GONZALEZ Albuterol 2.5 mg 12/13/21 23:13 Albuterol 2.5 Mg/3 Ml Nebu IH Q3HRT PRN Shortness Of Breath Amlodipine Besylate 5 mg 12/19/21 10:00 12/27/21 10:18 Amlodipine 5 Mg Tab PO 5 mg QDAY SRAVAN Administration Apixaban 2.5 mg 12/16/21 22:00 12/27/21 10:18 Apixaban 2.5 Mg Tab PO 2.5 mg Q12HR SRAVAN Administration Protocol Atorvastatin Calcium 40 mg 12/14/21 10:00 12/27/21 10:17 Atorvastatin 40 Mg Tab PO 40 mg DAILY SRAVAN Administration Cilostazol 50 mg 12/14/21 10:00 12/27/21 10:18 Cilostazol 100 Mg Tab PO 50 mg BID SRAVAN Administration Clopidogrel Bisulfate 75 mg 12/14/21 10:00 12/27/21 10:18 Clopidogrel 75 Mg Tab PO 75 mg QDAY SRAVAN Administration Docusate Sodium 100 mg 12/22/21 10:00 12/27/21 10:18 Docusate Sodium 100 Mg Cap PO 100 mg BID SRAVAN Administration Gabapentin 100 mg 12/19/21 10:00 12/27/21 10:18 Gabapentin 100 Mg Cap PO 100 mg BID SRAVAN Administration Hydralazine HCl 10 mg 12/17/21 14:23 12/20/21 18:09 Hydralazine 20 Mg/1 Ml Inj IV 10 mg Q4H PRN Administration Hypertension Cefepime HCl 2 gm in 100 mls @ 200 mls/hr 12/18/21 22:00 12/27/21 10:19 Cefepime/Ns 2 Gm/100 Ml IV 01/05/22 22:29 200 mls/hr Q12HR SRAVAN Administration Protocol Vancomycin HCl 1,250 mg/ 275 mls @ 166.667 mls/hr 12/21/21 06:00 12/27/21 05:00 Sodium Chloride IV 01/05/22 07:38 166.667 mls/hr Q24H SRAVAN Administration Morphine Sulfate 2 mg 12/13/21 23:13 12/24/21 10:53 Morphine 2 Mg/1 Ml Inj IV 2 mg Q4H PRN Administration Pain, Moderate (4-6) Morphine Sulfate 4 mg 12/13/21 23:13 12/27/21 14:35 Morphine 4 Mg/1 Ml Inj IV 4 mg Q4H PRN Administration Pain , Severe (7-10) Naloxone HCl 0.1 mg 12/14/21 15:02 Naloxone 0.4 Mg/1 Ml Inj IV Q2MIN PRN Res Rate </= 8 or 02 SAT < 92% Ondansetron HCl 4 mg 12/14/21 15:02 12/26/21 10:17 Ondansetron 4 Mg/2 Ml Inj IV 4 mg Q8H PRN Administration Nausea And Vomiting Pantoprazole Sodium 40 mg 12/14/21 16:30 12/27/21 10:22 Pantoprazole 40 Mg Tab PO 40 mg BIDAC SRAVAN Administration Senna 17.2 mg 12/22/21 22:00 12/26/21 21:21 Sennosides 8.6 Mg Tab PO 17.2 mg QHS SRAVAN Administration Sodium Chloride 10 ml 12/13/21 23:13 12/24/21 22:02 Sodium Chloride 0.9% 10 Ml Flush Syringe IV 10 ml PRN PRN Administration LINE FLUSH Trazodone HCl 50 mg 12/19/21 22:00 12/26/21 21:21 Trazodone 50 Mg Tab PO 50 mg QHS SRAVAN Administration Venlafaxine HCl 75 mg 12/17/21 10:00 12/27/21 10:18 Venlafaxine 75 Mg Tab PO 75 mg DAILY SRAVAN Administration Nutrition/Malnutrition Assess - Dietary Evaluation Nutrition/Malnutrition Findings: Nutrition Notes Start: 12/14/21 12:0 0 Freq: Status: Active Protocol: Document 12/21/21 11:08 MERARI (Rec: 12/21/21 11:48 MERARI [id number]) Nutrition Notes Initial or Follow up Reassessment Current Diagnosis Hypertension,Malnutrition, Hyperlipidemia Other Pertinent Diagnosis PVD s/p L-FP Bypass, L-FP Bypass Occlusion, L-Groin Infection, L-COAT IRONER HAND Injury Current Diet Regular Diet (since 12/16), D Suppl (since 12/15). Labs/Tests 12/21: Cl 109.2, Ca 7.5, Mg 1. 6. Pertinent Medications 12/21: Nutritionally unremarkable. Height 5 ft 2 in Weight 40.823 kg [place] Body Weight (kg) 50.00 BMI 16.5 Weight change and time frame No body weight change reported in 1 week. Weight Status Underweight Subjective/Other Information RD consult for malnutrition assessment. Pt's PO intake has imroved, but still Poor (50%) and fairly tolerated, Pt is also taking her dietary supplements , accvording to RN over the phone. Pt is on Room Air, O2 saturation @ 100%, according to Physical Assessment History notes. Pt has missing teeth, according to Physical Assessment History notes. Pt presents L-LE pitting edema 3+, according to Physical Assessment History notes. Pt's last BM was on 12/17, according to Physical Assessment History notes. Procedure on 12/20: Emergent angioplasty, evacuation of L- groin hematoma, and WoundVac replacement, well tolerated, according to Progress notes. Plans for discharge to LTAC or Rehab on 12/21, according to Progress notes. Percent of energy/protein needs met: Prescribed Regular Diet provides for energy/protein needs (2,289 Kcal/89 g) during LOS; additionally, Dietary Supplements will compensate for possible poor or insufficient PO intake of meals with 1,240 Kcal and 65 g of protein. Burn Absent Trauma Absent GI Symptoms None Food Allergy No Skin Integrity/Comment Several L-LE wounds. 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 Procedure on 12/20: Emergent angioplasty, evacuation of L- groin hematoma, and WoundVac replacement, well tolerated, according to Progress notes. Diagnosis Progress(for reassessment Continues documentation) #1 Nutrition Diagnosis Underweight Diagnosis Progress(for reassessment Continues documentation) Is patient on ventilator? No Is Patient Ambulatory and/or Out of Bed No REE-([facility]-confined to bed) 1134.852 Kcal/Kg value to use for calculation 30 Approximate Energy Requirements Using 1225 kcal/Kg Calculation Used for Recommendations Kcal/kg Additional Notes Protein: 1.5-2 g/Kg ABW; 62-84 g/day. Fluids: 1 ml/Kcal, or as per MD. Nutrition Intervention Change Diet Order: Continue Regular Diet as tolerated. Add Supplement/Snack (indicate name/kcal Continue 8 fl oz Ensure Enlive /protein ) ; TID. Start 28.8 g pkt Jeremy; BID. Provides kCal: 1,240 Provides Protein (gm) 65 Goal #1 Compensate, through dietary supplementation, for possible poor or insufficient PO intake of meals during LOS. Goal #2 Support, through dietary supplementation, wound healing processes during LOS. Goal #3 Adjust the dietary intervention to better serve Pt's needs and clinical conditions during LOS. Follow-Up By: 12/28/21 Additional Comments Continue monitoring food tolerance, %PO intake of meals , dietary supplements, and BM.
[2021-12-27] MEDS: traZODone 50 MG TAB PO SCH (21:41)
[2021-12-27] MEDS: SENNOSIDES 8.6 MG TAB PO SCH (21:42)
[2021-12-27] MEDS: MORPHINE 2 MG/1 ML INJ IV PRN (23:56)
[2021-12-28] MEDS: VANCOMYCIN 1,250 MG in SODIUM CHLORIDE 0.9% 250ML 250 ML IV SCH (05:27)
[2021-12-28] MEDS: MORPHINE 2 MG/1 ML INJ IV PRN (05:27)
--- NOTE | 2021-12-28 08:49 | Progress Note ---
Assessment and Plan Patient awaiting placement in LTAC. Wound care nurse will be coming by later today to change patient's wound VAC. Awaiting discharge once patient has a facility. Patient was encouraged to increase her p.o. intake as her nutritional status is very poor which is delaying her wound healing Subjective Date of service: 12/28/21 Principal diagnosis: Acute arterial bleeding Interval history: Patient is stable, wound VAC in place. Palpable left dorsalis pedis pulse. No complaints of any pain. Objective - Constitutional Vitals: Vital Signs - 12hr 12/27/21 12/27/21 12/27/21 21:00 22:01 23:00 Temperature Pulse Rate 78 93 H 73 Pulse Rate [ From Monitor] Respiratory 10 L 15 6 L Rate Blood Pressure 166/80 166/80 99/45 O2 Sat by Pulse 97 97 96 Oximetry 12/27/21 12/27/21 12/28/21 23:09 23:54 00:00 Temperature 98.1 F Pulse Rate 77 78 Pulse Rate [ 76 From Monitor] Respiratory 7 L 14 Rate Blood Pressure 99/45 63/24 O2 Sat by Pulse 97 96 Oximetry 12/28/21 12/28/21 12/28/21 00:26 00:31 00:45 Temperature Pulse Rate 78 77 Pulse Rate [ From Monitor] Respiratory 12 6 L 8 L Rate Blood Pressure 140/69 99/45 99/45 O2 Sat by Pulse 97 97 Oximetry 12/28/21 12/28/21 12/28/21 01:00 01:15 01:31 Temperature Pulse Rate 79 83 77 Pulse Rate [ From Monitor] Respiratory 9 L 7 L 9 L Rate Blood Pressure 155/73 155/73 155/73 O2 Sat by Pulse 97 92 99 Oximetry 12/28/21 12/28/21 12/28/21 01:45 02:00 02:15 Temperature Pulse Rate 78 76 79 Pulse Rate [ From Monitor] Respiratory 9 L 8 L 9 L Rate Blood Pressure 155/73 156/70 156/70 O2 Sat by Pulse 98 99 99 Oximetry 12/28/21 12/28/21 12/28/21 02:31 02:45 03:00 Temperature Pulse Rate 78 80 77 Pulse Rate [ From Monitor] Respiratory 10 L 8 L 7 L Rate Blood Pressure 156/70 156/70 162/77 O2 Sat by Pulse 97 97 99 Oximetry 12/28/21 12/28/21 12/28/21 03:15 03:31 03:45 Temperature Pulse Rate 81 81 82 Pulse Rate [ From Monitor] Respiratory 7 L 8 L 7 L Rate Blood Pressure 162/77 162/77 162/77 O2 Sat by Pulse 96 95 97 Oximetry 12/28/21 12/28/21 12/28/21 04:00 04:15 04:31 Temperature 98.4 F Pulse Rate 78 89 84 Pulse Rate [ 76 From Monitor] Respiratory 13 8 L 7 L Rate Blood Pressure 154/78 154/78 154/78 O2 Sat by Pulse 97 96 99 Oximetry 12/28/21 12/28/21 04:45 05:00 Temperature Pulse Rate 80 79 Pulse Rate [ From Monitor] Respiratory 9 L 10 L Rate Blood Pressure 154/78 174/83 O2 Sat by Pulse 96 97 Oximetry General appearance: Present: no acute distress, disheveled - EENT ENT: hearing intact - Neck Neck: normal ROM - Respiratory Respiratory effort: normal - Breasts Breasts: deferred Extremities: abnormal - Gastrointestinal General gastrointestinal: Present: deferred Rectal Exam: deferred - Genitourinary Female genitourinary: deferred - Psychiatric Psychiatric: cooperative - Labs CBC & Chem 7: 12/26/21 04:18 12/26/21 04:18 Medications & Allergies - Medications Allergies/Adverse Reactions: Allergies No Known Allergies Allergy (Verified 12/13/21 17:26) Home Medications: Home Medications Medication Instructions Recorded Confirmed Last Taken Type Apixaban [Eliquis] 2.5 mg PO Q12HR #60 tab 09/01/21 12/14/21 12/13/21 Rx AtorvaSTATin [Lipitor] 40 mg PO DAILY 09/01/21 12/14/21 12/14/21 History Gabapentin 100 mg PO BID 09/01/21 12/14/21 12/13/21 History Pantoprazole [Protonix TAB] 40 mg PO QDAY #90 tablet 09/01/21 12/14/21 12/13/21 Rx carvediloL [Coreg] 25 mg PO BID 09/01/21 12/14/21 12/13/21 History traZODone [Desyrel] 100 mg PO QHS 09/01/21 12/14/21 12/13/21 History Venlafaxine [Effexor] 75 mg PO DAILY 11/02/21 12/14/21 12/13/21 History Aspirin EC [Halfprin EC] 81 mg PO QDAY #30 tablet 12/11/21 12/14/21 12/13/21 Rx Clopidogrel [Plavix] 75 mg PO QDAY #90 tablet 12/11/21 12/14/21 12/14/21 Rx Docusate Sodium [Colace CAP] 100 mg PO BID #60 capsule 12/11/21 12/14/21 12/13/21 Rx cilostazoL [Pletal] 50 mg PO BID #60 tab 12/11/21 12/14/21 12/13/21 Rx levoFLOXacin [Levaquin] 750 mg PO QDAY #7 tablet 12/11/21 12/14/21 12/13/21 Rx traMADoL [Ultram] 50 mg PO Q6HR PRN #20 tablet 12/11/21 12/14/21 12/13/21 Rx Active Medications: Generic Name Dose Route Start Last Admin Trade Name Freq PRN Reason Stop Dose Admin Acetaminophen 650 mg 12/13/21 23:13 12/21/21 21:50 Acetaminophen 325 Mg Tab PO 650 mg Q4H PRN Administration Pain MILD(1-3)/Fever >100.5/GONZALEZ Albuterol 2.5 mg 12/13/21 23:13 Albuterol 2.5 Mg/3 Ml Nebu IH Q3HRT PRN Shortness Of Breath Amlodipine Besylate 5 mg 12/19/21 10:00 12/27/21 10:18 Amlodipine 5 Mg Tab PO 5 mg QDAY SRAVAN Administration Apixaban 2.5 mg 12/16/21 22:00 12/27/21 21:42 Apixaban 2.5 Mg Tab PO 2.5 mg Q12HR SRAVAN Administration Protocol Atorvastatin Calcium 40 mg 12/14/21 10:00 12/27/21 10:17 Atorvastatin 40 Mg Tab PO 40 mg DAILY SRAVAN Administration Cilostazol 50 mg 12/14/21 10:00 12/27/21 21:40 Cilostazol 100 Mg Tab PO 50 mg BID SRAVAN Administration Clopidogrel Bisulfate 75 mg 12/14/21 10:00 12/27/21 10:18 Clopidogrel 75 Mg Tab PO 75 mg QDAY SRAVAN Administration Docusate Sodium 100 mg 12/22/21 10:00 12/27/21 21:43 Docusate Sodium 100 Mg Cap PO 100 mg BID SRAVAN Administration Gabapentin 100 mg 12/19/21 10:00 12/27/21 21:42 Gabapentin 100 Mg Cap PO 100 mg BID SRAVAN Administration Hydralazine HCl 10 mg 12/17/21 14:23 12/20/21 18:09 Hydralazine 20 Mg/1 Ml Inj IV 10 mg Q4H PRN Administration Hypertension Cefepime HCl 2 gm in 100 mls @ 200 mls/hr 12/18/21 22:00 12/27/21 21:36 Cefepime/Ns 2 Gm/100 Ml IV 01/05/22 22:29 200 mls/hr Q12HR SRAVAN Administration Protocol Vancomycin HCl 1,250 mg/ 275 mls @ 166.667 mls/hr 12/21/21 06:00 12/28/21 05:27 Sodium Chloride IV 01/05/22 07:38 166.667 mls/hr Q24H SRAVAN Administration Morphine Sulfate 2 mg 12/13/21 23:13 12/28/21 05:27 Morphine 2 Mg/1 Ml Inj IV 2 mg Q4H PRN Administration Pain, Moderate (4-6) Morphine Sulfate 4 mg 12/13/21 23:13 12/27/21 19:10 Morphine 4 Mg/1 Ml Inj IV 4 mg Q4H PRN Administration Pain , Severe (7-10) Naloxone HCl 0.1 mg 12/14/21 15:02 Naloxone 0.4 Mg/1 Ml Inj IV Q2MIN PRN Res Rate </= 8 or 02 SAT < 92% Ondansetron HCl 4 mg 12/14/21 15:02 12/26/21 10:17 Ondansetron 4 Mg/2 Ml Inj IV 4 mg Q8H PRN Administration Nausea And Vomiting Pantoprazole Sodium 40 mg 12/14/21 16:30 12/27/21 17:06 Pantoprazole 40 Mg Tab PO 40 mg BIDAC SRAVAN Administration Senna 17.2 mg 12/22/21 22:00 12/27/21 21:42 Sennosides 8.6 Mg Tab PO 17.2 mg QHS SRAVAN Administration Sodium Chloride 10 ml 12/13/21 23:13 12/24/21 22:02 Sodium Chloride 0.9% 10 Ml Flush Syringe IV 10 ml PRN PRN Administration LINE FLUSH Trazodone HCl 50 mg 12/19/21 22:00 12/27/21 21:41 Trazodone 50 Mg Tab PO 50 mg QHS SRAVAN Administration Venlafaxine HCl 75 mg 12/17/21 10:00 12/27/21 10:18 Venlafaxine 75 Mg Tab PO 75 mg DAILY SRAVAN Administration
[2021-12-28] MEDS: oxyCODONE /ACETAMINOPHEN 5-325MG TAB PO PRN ×2 (10:47→15:08)
[2021-12-28] MEDS: APIXABAN 2.5 MG TAB PO SCH (10:47)
[2021-12-28] MEDS: GABAPENTIN 100 MG CAP PO SCH (10:47)
[2021-12-28] MEDS: CEFEPIME/NS 2 GM/100 ML 2 GM/100 ML BAG IV SCH (10:48)
[2021-12-28] MEDS: amLODIPine 5 MG TAB PO SCH (10:48)
[2021-12-28] MEDS: DOCUSATE SODIUM 100 MG CAP PO SCH (10:48)
[2021-12-28] MEDS: CLOPIDOGREL 75 MG TAB PO SCH (10:48)
[2021-12-28] MEDS: VENLAFAXINE 75 MG TAB PO SCH (10:52)
[2021-12-28] MEDS: CILOSTAZOL 100 MG TAB PO SCH (10:52)
[2021-12-28] MEDS: PANTOPRAZOLE 40 MG TAB PO SCH ×2 (10:52→15:33)
[2021-12-28 11:34] LABS: Blood Urea Nitrogen 7 mg/dL (7-17); Calcium 7.8 mg/dL (8.4-10.2); Hemolysis Index 4
[2021-12-28 11:39] LABS: Hemoglobin 8.7 gm/dl (10.1-14.3); Mean Corpuscular HGB Conc 32 % (30-34); Mean Corpuscular Volume 91 fl (79-97); Platelet Count 390 K/mm3 (140-440); Red Blood Count 2.98 M/mm3 (3.65-5.03)
[2021-12-28 11:47] LABS: BUN/Creatinine Ratio 12
[2021-12-28 11:50] LABS: Red Cell Distribution Width 20.8 % (13.2-15.2)
[2021-12-28] MEDS ORDERED: SILVER NITRATE APPLICATOR 1 EA TP ONE (12:33)
--- NOTE | 2021-12-28 12:44 | Discharge Summary ---
Providers - Providers Date of Admission: 12/13/21 23:13 Date of discharge: 12/28/21 Attending physician: ALIZA SWANSON MD 12/13/21 23:13 Consult to Physician [CONS] Routine Comment: Consulting Provider: QUITA HART Physician Instructions: Reason For Exam: Femoropopliteal hemorrhage 12/13/21 23:17 Consult to Physician [CONS] Routine Comment: Consulting Provider: JUDITH SOUZA Physician Instructions: Reason For Exam: Pinpoint hemorrhage infection 12/15/21 14:15 Physical Therapy Evaluation and Treat [CONS] Routine Comment: Reason For Exam: Deconditioning 12/15/21 17:20 Consult to Case Management [CONS] Routine Services Needed at Discharge: Home Health Services Notified:: yes Additional Physician Instructions: Shannon Blake MD [facility] ([facility] M: [phone] O: [phone] F: [phone] Outpatient parenteral antibiotic therapy orders Diagnosis: Femoropopliteal bypass graft infection Antibiotic administration: vancomycin 1 g every 24 hours, cefepime 2 g every 12 hours until 01/05/2022 Line: PICC Lab monitoring: CBC with differential, CMP, vancomycin trough, once per week preferably on Saturday or Saturday Vancomycin: Check creatinine and vancomycin trough every Saturday and , fax results to [phone] For critical labs, call office: [phone] Shannon Blake 12/16/21 07:51 PICC Line Insertion [Consult to PICC Line RN] [CONS] Routine Reason For Exam: senior living iv abx Type Line:: PICC 12/16/21 10:34 Consult to Dietitian/Nutrition [CONS] Routine Physician Instructions: need high protein Reason For Exam: can eat anything she wants, as long as she eats Reason for Consult: Malnutrition 12/17/21 11:19 Occupational Therapy Evaluate and Treat [CONS] Routine Comment: Reason For Exam: deconditioning 12/19/21 08:00 Consult to Wound/ET Nurse [CONS] Urgent Reason For Exam: Wound Vac...Do Not change wound vac for 5 days 12/21/21 09:44 Consult to Dietitian/Nutrition [CONS] Routine Physician Instructions: Reason For Exam: She needs increased caloric intake Reason for Consult: Malnutrition 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 Work-up in the emergency department revealed hemoglobin of 6.6 and she was transfused 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 Vascular surgery was consulted and patient was taken to cathead operator for repair of femoral artery injury. Patient was admitted to the hospitalist service with consult to CCM. On 12/16 patient was anemic and received 1 unit PRBC. ID recommended long-term antibiotic for femoropopliteal graft infection and PICC line was placed. An AV patient underwent emergent angioplasty and evacuation of left groin hematoma with placement of wound VAC, received 3 units PRBC and 1 unit FFP. Eventually her 3 incisions were bridged to 1 continuous wound VAC down her leg. Patient was ultimately denied by LTAC but will be transferred to senior care facility for further wound care, medical management and continuation of antibiotics. Patient will need to follow-up with primary care physician, infectious disease and vascular surgery within 1 to 2 weeks of discharge. Assessment and plan: Neuro: h/o CVA -Reorientation as needed -Maintain sleep-wake cycle -As needed analgesia Cardiac: h/o HTN, HLD, CAD -Continue current antihypertensive regimen -Blood pressure monitor per protocol -Lipitor Respiratory: h/o nicotine abuse -Currently on room air -Supplemental oxygen as needed -SPO2 monitoring -Pulmonary hygiene -Nicotine abuse cessation counseling provided GI: Moderate Protein calorie malnutrition -Cardiac diet with supplements -BR: colace ID: Femoral popliteal bypass graft infection -Infectious disease consulted, appreciate recommendation -Antibiotic therapy with cefepime and vancomycin -keno terminal operator abx: vancomycin 1 g every 24 hours and cefepime 2 g every 12 hours until 01/05/2022 -s/p PICC Heme/Vasc: ABLA, (bleeding with exception of left common femoral arterial patch, Leukocytosis, h/o severe PVD s/p left femoral-popliteal bypass with fasciotom y, right lower extremity right revascularization -Presents with a hemoglobin of 7.6-> 11.1 -CT abdomen/pelvis showed small amount of active hemorrhage in the left inguinal region and a large renal hematoma, excessive swelling throughout the entire left leg and 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 -S/p 10 units PRBC, 2 FFP -Vascular surgery and CCM consulted, appreciate recommendations -S/p exploration of left groin with open thrombectomy of left SFA, repair of left common femoral artery, coverage of left femoral artery with muscle flap and wound VAC placement -12/19 s/p emergent angiooplasty, evacuation of left groin hematoma,and Replacement of Wound VAC overnight due to left groin hematoma and bleeding -Continue Pletal, plavix, Eliquis per vascular -s/p Heparin gtt -Trend CBC -Transfuse hemoglobin less than 7 Disposition: 03 [facility]FWAY FACILITY Final Discharge Diagnosis (Prints w/discharge instructions): Femoropopliteal bypass graft infection, Femoropopliteal bygrass graft hemorrhage Time spent for discharge: 60 Core Measure Documentation - Palliative Care Palliative Care/ Comfort Measures: Not Applicable - Core Measures Any of the following diagnoses?: history only Exam - Physical Exam Narrative exam: General appearance: Present: no acute distress, cachectic - EENT Eyes: Present: PERRL, EOM intact ENT: hearing intact, clear oral mucosa, edentulous - Neck Neck: Present: normal ROM - Respiratory Respiratory effort: normal Respiratory: bilateral: CTA - Cardiovascular Rhythm: regular Heart Sounds: Present: S1 & S2. Absent: systolic murmur, diastolic murmur - Extremities Extremities: no ischemia, pulses intact, abnormal (LLE swelling, WoundVac present left thigh wound left calf 1 continues to made left leg area. Wound VAC in place. LLE Pulses very faint, RLE pulses papable. BLE warm with good cap refill) Extremity abnormal: edema - Peripheral Assessment Left Lower Extremity Edema Type: Pitting Edema Degree: 1+ Capillary Refill: < 3 seconds Skin Temperature: Warm Peripheral Pulses: within normal limits - Abdominal General gastrointestinal: soft, non-tender, non-distended, normal bowel sounds - Integumentary Integumentary: Present: warm, dry - Psychiatric Psychiatric: cooperative - Neurologic Neurologic: CNII-XII intact, no focal deficits, moves all extremities - Constitutional Vitals: Temp Pulse Resp BP Pulse Ox 98.4 F 87 12 137/69 96 12/28/21 12:00 12/28/21 12:31 12/28/21 12:31 12/28/21 12:31 12/28/21 12:31 Plan Activity: advance as tolerated Diet: per dietitian instruction, advance as tolerated Wound: per wound nurse instructions Special Instructions: record daily BP diary, smoking cessation, physical therapy, occupational therapy Additional Instructions: Patient care transferred to skilled facility Follow up with: PRIMARY MD ROXANA [Primary Care Provider] - 3-5 Days RHINA MURRAY MD [Staff Physician] - 7 Days JUDITH SOUZA MD [Staff Physician] - 7 Days
--- NOTE | 2021-12-28 12:47 | Event Note ---
Date: 12/28/21 Patient undergoing wound VAC change. Along inferior aspect of the incision in the lower leg, upon removal of the wound VAC sponge a tiny tiny tiny blood vessel began to ooze. Came to the room and treated the blood vessel with silver nitrate cautery. Hemostasis achieved. Wound care nursing reapplying wound VAC in anticipation of discharge today.
[2021-12-28 15:26] VITALS: BP 119/61
== END 2021-12-28 15:59 | DRG 253 ==
LOC: ED 17:16 → 4A 23:13 → CC1 12-14 13:08 → IMCU 12-17 17:17
PROVIDERS: ADMIT Hospitalist; ATTEND Internal Medicine
PROC: 04CL0ZZ Extirpation of Matter from Left Femoral Artery, Open Approach (ICD-10-PCS; 2021-12-14)
PROC: 04UL0KZ Supplement Left Femoral Artery with Nonautologous Tissue Substitute, Open Approach (ICD-10-PCS; 2021-12-14)
PROC: 30233K1 Transfusion of Nonautologous Frozen Plasma into Peripheral Vein, Percutaneous Approach (ICD-10-PCS; 2021-12-14)
PROC: 30233N1 Transfusion of Nonautologous Red Blood Cells into Peripheral Vein, Percutaneous Approach (ICD-10-PCS; 2021-12-14)
PROC: 02HV33Z Insertion of Infusion Device into Superior Vena Cava, Percutaneous Approach (ICD-10-PCS; 2021-12-16)
PROC: 047J3DZ Dilation of Left External Iliac Artery with Intraluminal Device, Percutaneous Approach (ICD-10-PCS; principal; 2021-12-19)
PROC: 047L3DZ Dilation of Left Femoral Artery with Intraluminal Device, Percutaneous Approach (ICD-10-PCS; 2021-12-19)
PROC: 047N34Z Dilation of Left Popliteal Artery with Drug-eluting Intraluminal Device, Percutaneous Approach (ICD-10-PCS; 2021-12-19)
PROC: 0Y960ZZ Drainage of Left Inguinal Region, Open Approach (ICD-10-PCS; 2021-12-19)
PROC: B41G1ZZ Fluoroscopy of Left Lower Extremity Arteries using Low Osmolar Contrast (ICD-10-PCS; 2021-12-19)
DX: T82.838A Hemorrhage due to vascular prosthetic devices, implants and grafts, initial encounter (principal); D62 Acute posthemorrhagic anemia; E44.0 Moderate protein-calorie malnutrition; T81.718A Complication of other artery following a procedure, not elsewhere classified, initial encounter; T81.41XA Infection following a procedure, superficial incisional surgical site, initial encounter; E87.2 Acidosis; L76.32 Postprocedural hematoma of skin and subcutaneous tissue following other procedure; T82.898A Other specified complication of vascular prosthetic devices, implants and grafts, initial encounter; Z20.822 Contact with and (suspected) exposure to COVID-19; I73.9 Peripheral vascular disease, unspecified; I10 Essential (primary) hypertension; F17.200 Nicotine dependence, unspecified, uncomplicated; I72.4 Aneurysm of artery of lower extremity; Y83.8 Other surgical procedures as the cause of abnormal reaction of the patient, or of later complication, without mention of misadventure at the time of the procedure; Y92.89 Other specified places as the place of occurrence of the external cause; Z82.49 Family history of ischemic heart disease and other diseases of the circulatory system; F32.A Depression, unspecified; Z71.6 Tobacco abuse counseling; E78.5 Hyperlipidemia, unspecified; G62.9 Polyneuropathy, unspecified; E87.8 Other disorders of electrolyte and fluid balance, not elsewhere classified; I25.10 Atherosclerotic heart disease of native coronary artery without angina pectoris; E87.6 Hypokalemia; E83.42 Hypomagnesemia
CPT/HCPCS: 36415; 37221; 37226; 75635; 76937; 80048; 80053; 80202; 83735; 84100; 84132; 85014; 85018; 85025; 85027; 85049; 85384; 85520; 85610; 85730; 86850; 86900; 86901; 86920; 94640; G0378; J1815; J2354; J3490; C1725; C1768; C1769; C1874; C1887; C1894; J0171; J0330; J0360; J0690; J0692; J1170; J1644; J2270; J2370; J2405; J2543; J2704; J2710; J3370; J3475; J3480; J7030; J7040; J7050; J7120; P9016; P9017; Q4100; Q9967; U0003

== ENCOUNTER 2022-01-31 22:13 | Emergency (ER) | payer MEDICARE ==
--- NOTE | 2022-02-01 11:00 | Emergency Department Report ---
ED General Adult HPI - General Chief complaint: Wound/Laceration Stated complaint: WOUND VAC FULL,BLEEDING LT LEG Time Seen by Provider: 02/01/22 10:39 Source: patient Mode of arrival: Ambulatory Limitations: No Limitations - History of Present Illness Initial comments: 56 yo F with h/o HTn, CVA, HLD, anemia and PVD s/p femoral popliteal bypass with compartment syndrome and fasciotomy with post wound vac who present this AM with bleeding from malfunctioned wound vac. Pt says she ran out of her wound canister and [employer] insurance will not replace it. No fever or chills reported. No other modifying or associated factors. - Related Data Home Medications Medication Instructions Recorded Confirmed Last Taken AtorvaSTATin [Lipitor] 40 mg PO DAILY 09/01/21 12/14/21 12/14/21 Gabapentin 100 mg PO BID 09/01/21 12/14/21 12/13/21 traZODone [Desyrel] 100 mg PO QHS 09/01/21 12/14/21 12/13/21 Venlafaxine [Effexor] 75 mg PO DAILY 11/02/21 12/14/21 12/13/21 Previous Rx's Medication Instructions Recorded Last Taken Type Clopidogrel [Plavix] 75 mg PO QDAY #90 tablet 12/11/21 12/14/21 Rx cilostazoL [Pletal] 50 mg PO BID #60 tab 12/11/21 12/13/21 Rx Acetaminophen [Acetaminophen TAB] 650 mg PO Q4H PRN tablet 12/28/21 Unknown Rx Apixaban [Eliquis] 2.5 mg PO Q12HR tablet 12/28/21 Unknown Rx Cefepime 2 gm IV Q12HR #17 vial 12/28/21 Unknown Rx Docusate Sodium [Colace CAP] 100 mg PO BID capsule 12/28/21 Unknown Rx Pantoprazole [Protonix TAB] 40 mg PO BIDAC tablet 12/28/21 Unknown Rx Sennosides Tab [Senokot] 17.2 mg PO QHS tablet 12/28/21 Unknown Rx Vancomycin/Water For Inj (Peg) 1 gm IV Q24HR 9 Days 12/28/21 Unknown Rx [Vancomycin 1 Gram/200 ml Bag] amLODIPine 5 mg PO QDAY tablet 12/28/21 Unknown Rx oxyCODONE /ACETAMINOPHEN [Percocet 1 tab PO Q4H PRN tablet 12/28/21 Unknown Rx 5/325 mg] oxyCODONE /ACETAMINOPHEN [Percocet 1 tab PO Q6H #20 tab 12/28/21 Unknown Rx 5/325] Allergies Allergy/AdvReac Type Severity Reaction Status Date / Time No Known Allergies Allergy Verified 12/13/21 17:26 ED Review of Systems ROS: Stated complaint: WOUND VAC FULL,BLEEDING LT LEG Other details as noted in HPI Comment: All other systems reviewed and negative Musculoskeletal: myalgia, other Hematological/Lymphatic: other (left thigh bleeding and malfunctioned wound vac) ED Past Medical Hx - Past Medical History Hx Hypertension: Yes Hx CVA: No Hx Heart Attack/AMI: No (Cardiac clearance; echo & nst) Hx Congestive Heart Failure: No Hx Diabetes: No Hx Deep Vein Thrombosis: No Hx Pulmonary Embolism: No Hx GERD: No Hx Liver Disease: No Hx Renal Disease: No Hx Sickle Cell Disease: No Hx Arthritis: No Hx Headaches / Migraines: No Hx Seizures: No Hx Kidney Stones: No Hx Psychiatric Treatment: No Hx Asthma: No Hx COPD: No Hx Tuberculosis: No Hx Dementia: No Hx HIV: No - Surgical History Hx Coronary Stent: No Hx Open Heart Surgery: No Hx Pacemaker: No Hx Internal Defibrillator: No Hx Cholecystectomy: No Hx Appendectomy: No Hx Breast Surgery: No Additional Surgical History: Femoral bypass Surgery - Social History Smoking Status: Never Smoker - Medications Home Medications: Home Medications Medication Instructions Recorded Confirmed Last Taken Type AtorvaSTATin [Lipitor] 40 mg PO DAILY 09/01/21 12/14/21 12/14/21 History Gabapentin 100 mg PO BID 09/01/21 12/14/21 12/13/21 History traZODone [Desyrel] 100 mg PO QHS 09/01/21 12/14/21 12/13/21 History Venlafaxine [Effexor] 75 mg PO DAILY 11/02/21 12/14/21 12/13/21 History Clopidogrel [Plavix] 75 mg PO QDAY #90 tablet 12/11/21 12/14/21 12/14/21 Rx cilostazoL [Pletal] 50 mg PO BID #60 tab 12/11/21 12/14/21 12/13/21 Rx Acetaminophen [Acetaminophen TAB] 650 mg PO Q4H PRN tablet 12/28/21 Unknown Rx Apixaban [Eliquis] 2.5 mg PO Q12HR tablet 12/28/21 Unknown Rx Cefepime 2 gm IV Q12HR #17 vial 12/28/21 Unknown Rx Docusate Sodium [Colace CAP] 100 mg PO BID capsule 12/28/21 Unknown Rx Pantoprazole [Protonix TAB] 40 mg PO BIDAC tablet 12/28/21 Unknown Rx Sennosides Tab [Senokot] 17.2 mg PO QHS tablet 12/28/21 Unknown Rx Vancomycin/Water For Inj (Peg) 1 gm IV Q24HR 9 Days 12/28/21 Unknown Rx [Vancomycin 1 Gram/200 ml Bag] amLODIPine 5 mg PO QDAY tablet 12/28/21 Unknown Rx oxyCODONE /ACETAMINOPHEN [Percocet 1 tab PO Q4H PRN tablet 12/28/21 Unknown Rx 5/325 mg] oxyCODONE /ACETAMINOPHEN [Percocet 1 tab PO Q6H #20 tab 12/28/21 Unknown Rx 5/325] ED Physical Exam - General Limitations: No Limitations General appearance: alert, in no apparent distress - Head Head exam: Present: normal inspection - Eye Eye exam: Present: normal appearance Pupils: Present: normal accommodation - ENT ENT exam: Present: normal exam, normal orophraynx, mucous membranes moist - Neck Neck exam: Present: normal inspection. Absent: tenderness - Respiratory Respiratory exam: Present: normal lung sounds bilaterally. Absent: respiratory distress, accessory muscle use - Cardiovascular Cardiovascular Exam: Present: regular rate, normal rhythm, normal heart sounds - GI/Abdominal GI/Abdominal exam: Present: soft, normal bowel sounds. Absent: distended, tenderness - Extremities Exam Extremities exam: Present: other (left thigh with wound vac full and malfunction). Absent: pedal edema ED Course Vital Signs 02/01/22 02/01/22 02/01/22 01:27 06:53 11:36 Temperature 98.8 F 100.3 F H 98.2 F Pulse Rate 102 H 97 H 75 Respiratory 16 18 17 Rate Blood Pressure 130/80 128/62 121/63 [Right] O2 Sat by Pulse 100 100 99 Oximetry - Reevaluation(s) Reevaluation #1: 02/01/22 13:57 Dr Gómez the vascular labor relations director who came to the ED and evaluated this patient wound vac and found it to be working well and just needed to have clean and change the canister. He says patient only need to call the clinic and go there to have a new canister given to her instead of coming to the ED. He suggested discharging patient immediately so she will be able to make it to the clinic. ED Medical Decision Making - Lab Data Result diagrams: 02/01/22 11:17 02/01/22 11:17 - Medical Decision Making Wound vac malfunction-- will call Dr Lauri Edge for disposition -- Critical care attestation.: If time is entered above; I have spent that time in minutes in the direct care of this critically ill patient, excluding procedure time. ED Disposition Clinical Impression: Encounter for management of wound VAC Disposition: 01 HOME / SELF CARE / HOMELESS Is pt being admited?: No Does the pt Need Aspirin: No Condition: Stable Additional Instructions: It is very important that you call and follow up at your vascular surgeon's Dr Lauri Edge immediately to burr picker a new canister Please do not hesitate or call if your symptoms or bleeding worsen Time of Disposition: 14:00
[2022-02-01 12:52] LABS: Basophils # (Auto) 0.1 K/mm3 (0.0-0.1); Basophils % (Auto) 0.9 % (0.0-1.8); Eosinophils % (Auto) 0.1 % (0.0-4.3); Hematocrit 22.9 % (30.3-42.9); Hemoglobin 7.7 gm/dl (10.1-14.3); Lymphocytes # (Auto) 0.8 K/mm3 (1.2-5.4); Mean Corpuscular HGB Conc 34 % (30-34); Mean Corpuscular Volume 90 fl (79-97); Monocytes # (Auto) 0.6 K/mm3 (0.0-0.8); Monocytes % (Auto) 5.9 % (0.0-7.3); Platelet Count 318 K/mm3 (140-440); Red Blood Count 2.55 M/mm3 (3.65-5.03); Red Cell Distribution Width 16.3 % (13.2-15.2)
[2022-02-01 12:57] LABS: INR 0.93 (0.87-1.13)
[2022-02-01 12:58] LABS: Alanine Aminotransferase 6 units/L (7-56); Albumin 2.8 g/dL (3.9-5); BUN/Creatinine Ratio 14; Blood Urea Nitrogen 11 mg/dL (7-17); Calcium 8.4 mg/dL (8.4-10.2); Hemolysis Index 1
[2022-02-01 17:27] VITALS: BP 132/66
== END 2022-02-01 17:26 | disposition home or self-care (01) ==
LOC: ED 22:13
DX: T85.698A Other mechanical complication of other specified internal prosthetic devices, implants and grafts, initial encounter (principal); Z48.01 Encounter for change or removal of surgical wound dressing
CPT/HCPCS: 36415; 80053; 85025; 85610; 85730; 99283